=== PATIENT | female | born 1935 | race Caucasian/White ===

== ENCOUNTER 2017-08-02 02:36 | Emergency (ER) | payer OTHER, MEDICARE ==
[2017-08-02] MEDS ORDERED: SOLU-Medrol 125 MG VIAL IVP ONE (02:53)
[2017-08-02] MEDS ORDERED: SOLU-Medrol 125 MG VIAL ONE (02:54)
[2017-08-02 02:55] VITALS: BMI 23.4
[2017-08-02 03:22] LABS: BASOPHILS # (AUTO) 0.1 X10^3/uL (0.0-0.1); BASOPHILS % (AUTO) 0.6 % (0.2-1.0); EOSINOPHILS % (AUTO) 0.1 % (0.9-2.9); HEMATOCRIT 29.8 % (36.0-47.0); HEMOGLOBIN 9.8 g/dL (12.0-16.0); LYMPHOCYTES # (AUTO) 0.8 X10^3/uL (1.3-2.9); LYMPHOCYTES % (AUTO) 6.5 % (21.0-51.0); MEAN CORPUSCULAR HEMOGLOBIN 26.5 pg (27.0-34.0); MEAN CORPUSCULAR HGB CONC 32.8 g/dL (33.0-35.0); MEAN CORPUSCULAR VOLUME 80.9 fL (80.0-100.0); MEAN PLATELET VOLUME 8.8 fL (7.4-11.0); MONOCYTES # (AUTO) 0.9 x10^3/uL (0.3-0.8); MONOCYTES % (AUTO) 7.4 % (0.0-13.0); NEUTROPHILS # (AUTO) 9.9 x10^3/uL (2.2-4.8); NEUTROPHILS % (AUTO) 85.4 % (42.0-75.0); PLATELET COUNT 297 X10^3/uL (150.0-450.0); RED BLOOD COUNT 3.69 X10^6/uL (3.5-5.4); RED CELL DISTRIBUTION WIDTH 15.2 % (11.6-16.5); WHITE BLOOD COUNT 11.6 X10^3/uL (3.6-10.0)
[2017-08-02] MEDS ORDERED: ATIVAN INJ 2 MG VIAL IVP ONE (03:23)
--- NOTE | 2017-08-02 03:26 | DR.SOBA ---
HPI - Primary Care Physician Primary Care Physician: JEANINE - HPI Comment HPI Comment: PATIENT LOT HER TONIGHT AND IS NOW HAVING RESPIRATORY DISTRESS AND SOB. CAROLYNE SAID PATIENT IS BEING COUGHING MAINLY NON PRODUCTIVE COUGH. TONIGHT SHE IS WHEEZING AND HAVING TIGHTNESS OF HER CHEST. HAVE HISTORY OF COPD. SHE SAID SHE MAY BE RUNNING FEVER AT HOME. - Complaints Chief Complaint Doctors Comments: INCREASING SOB, COUGH AND CHEST PAIN. Chief Complaint:: SHORT OF BREATH O/S 2-3 HRS AGO, JUST GOT WORSE. HX OF COPD, SMOKER. PATIENT DENIES ANY PAIN. - Reviewed Nurses Notes Reviewed: Yes - Source History Provided: Patient, EMS - Mode of Arrival Mode of Arrival: EMS - Timing Onset of Chief Complaint: 08/02/17 - Duration Duration: Hours, Days - Context Onset:: At Rest PE Risk Factors:: None History of:: COPD, Anxiety Currently on:: Neither Prehospital Care:: None - Modifying Factors Worsens:: Anxiety Improves:: Nothing - Associated Signs and Symptoms Associated Signs and Symptoms: Fever, Wheeze, Cough, Chest Pain, Leg Swelling, Anxiety - If Chest Pain Quality: Pleuritic, Other (TIGHTNESS, ) Location: Left Upper Chest, Left Lower Chest, Chest Wall - If Cough Cough: Nonproductive PMH - PMH Past Medical History: Yes Past Medical History: Asthma, COPD, Dyslipidemia, Hypertension Past Medical History Comment: BREAST CANCER Past Surgical History: Yes Surgical History: Cholecystectomy, Hysterectomy, Mastectomy Past Surgical History Comment: LEFT MASTECTOMY (50 YRS AGO) - Family History History of Family Medical Conditions: No - Social History Type of Tobacco Use: Cigarettes Alcohol Use: None Do you use any recreational Drugs:: No Lives With: Family Lives Where: Home - infectious screening Have you traveled outside the country in the last 6 months?: No Isolation: Standard ROS - Review of Systems Constitutional: Fever, Weakness, Fatigue. negative: Chills Eyes: negative: Eye Pain, Photophobia ENTM: Nose Congestion. negative: Ear Pain, Nose Discharge, Throat Pain Respiratoy: Non-Productive Cough, Short of Breath, Wheezing. negative: Hemoptysis Cardiovascular: Chest Pain, Edema, Palpitations Gastrointestinal/Abdominal: Diarrhea. negative: Nausea, Vomiting Genitourinary: negative: Dysuria, Frequency, Hematuria Neurological: Headache, Weakness, Dizziness Musculoskeletal: Back Pain, Muscle Pain Integumentary: Change in Color, Rash. negative: Juandice Hematologic/Lymphatic: Easy Bleeding, Easy Bruising Endocrine: No Symptoms Reported. negative: Flushing All Other Systems: Reviewed and Negative PE - Vital Signs Vitals: Temperature 99.0 F Pulse Rate [Apical] 121 Pulse Rate 123 Respiratory Rate 38 Blood Pressure [Right Arm] 91/57 Blood Pressure 111/95 O2 Sat by Pulse Oximetry 99 - General Limitations: No Limitations General Appearance: Alert, In Distress - Head Head Exam: Normal Inspection - Eyes Eye exam: PERRL, EOMI. negative: Scleral Icterus, Conjunctival Injection - ENT ENT Exam: Normal Oropharynx, Normal External Ear Exam, TM's Normal Bilaterally - Neck Neck Exam: Trachea Midline. negative: Tenderness, Meningismus, Lymphadenopathy - Chest Chest Inspection: Symmetric Chest Wall Rise - Respiratory Respiratory Exam: Normal Lung Sounds Bilat, Accessory Muscle Use Respiratory Exam: Bilateral Wheezing, Bilateral Rhonchi, Upper Wheezing, Upper Rhonchi, Lower Wheezing, Lower Rhonchi - Cardiovascular Cardiovascular Exam: Normal Rhythm, Tachycardia, Normal Heart Sounds - Abdominal Exam Abdominal Exam: Normal Bowel Sounds, Soft. negative: Tenderness - Extremities Extremities Exam: Normal Inspection - Back Back Exam: Normal Inspection - Neurologic Neurological Exam: Alert, Oriented X3. negative: Motor Sensory Deficit - Psychiatric Psychiatric Exam: Normal Affect, Normal Mood - Skin Skin Exam: Erythema MDM - Additional Information Obtained Additional Information Obtained From: Family - Differential Diagnosis Differential Diagnosis: Anxiety, Bronchitis, CHF, COPD, Dysrhythmia, Mycardial Infarction, Panic Attack, Pneumonia, Pneumothorax, Pulmonary embolism, Respiratory Insufficiency Course - Treatment Treatment: SEE ORDERS. - Consultation Consultation Comments: DR. SOLORZANO WANT PATIENT TRANSFER TO HIGHER LEVEL OF CARE. DR. SUMMERS, [facility] [place] ACCEPTED PATIENT FOE TRANSFER. - Education/Counseling Education/Counseling: Patient, Family, Education Educated On: Diagnosis, Needs for Follow Up ROR - Labs Reviewed Laboratory Results Reviewed?: Yes Result Diagrams: 08/02/17 03:06 08/02/17 03:06 Laboratory: WBC 11.6 X10^3/uL (3.6-10.0) H 08/02/17 03:06 RBC 3.69 X10^6/uL (3.5-5.4) 08/02/17 03:06 Hgb 9.8 g/dL (12.0-16.0) L 08/02/17 03:06 Hct 29.8 % (36.0-47.0) L 08/02/17 03:06 MCV 80.9 fL (80.0-100.0) 08/02/17 03:06 MCH 26.5 pg (27.0-34.0) L 08/02/17 03:06 MCHC 32.8 g/dL (33.0-35.0) L 08/02/17 03:06 RDW 15.2 % (11.6-16.5) 08/02/17 03:06 Plt Count 297 X10^3/uL (150.0-450.0) 08/02/17 03:06 MPV 8.8 fL (7.4-11.0) 08/02/17 03:06 Neut % 85.4 % (42.0-75.0) H 08/02/17 03:06 Lymph % 6.5 % (21.0-51.0) L 08/02/17 03:06 [place] % 7.4 % (0.0-13.0) 08/02/17 03:06 Eos % 0.1 % (0.9-2.9) L 08/02/17 03:06 Baso % 0.6 % (0.2-1.0) 08/02/17 03:06 Neut # 9.9 x10^3/uL (2.2-4.8) H 08/02/17 03:06 Lymph # 0.8 X10^3/uL (1.3-2.9) L 08/02/17 03:06 [place] # 0.9 x10^3/uL (0.3-0.8) H 08/02/17 03:06 Eos # 0.0 x10^3/uL (0.0-0.2) 08/02/17 03:06 Baso # 0.1 X10^3/uL (0.0-0.1) 08/02/17 03:06 Absolute Nucleated RBC 0.0 /100WBC 08/02/17 03:06 Sample Site Left radial 08/02/17 07:10 ABG pH 7.280 (7.35-7.45) L 08/02/17 07:10 ABG pCO2 52.0 mmHg (35.0-45.0) H* 08/02/17 07:10 ABG pO2 72.0 mmHg (80.0-100.0) L 08/02/17 07:10 ABG HCO3 24.4 mmol/L (22-26) 08/02/17 07:10 ABG O2 Saturation 92.0 % (90-100) 08/02/17 07:10 ABG Base Excess -2.9 mmol/L (-2.0-2.0) L 08/02/17 07:10 Jeff Test Pos 08/02/17 07:10 A-a Gradient 63.0 mmHg 08/02/17 07:10 FiO2 28.000 08/02/17 07:10 Blood Gas Comments Shanna well aw 08/02/17 07:10 Sodium 138 mmol/L (136-145) 08/02/17 03:06 Corrected Sodium 140 mmol/L (136-145) 08/02/17 03:06 Potassium 3.6 mmol/L (3.5-5.1) 08/02/17 03:06 Chloride 103 mmol/L (98-107) 08/02/17 03:06 Carbon Dioxide 25.5 mmol/L (21-32) 08/02/17 03:06 BUN 14 mg/dL (7-18) 08/02/17 03:06 Creatinine 0.90 mg/dL (0.55-1.02) 08/02/17 03:06 Est GFR (MDRD) Af Amer > 60 (>60) 08/02/17 03:06 Est GFR (MDRD) Non-Af > 60 (>60) 08/02/17 03:06 Glucose 175 mg/dL (65-99) H 08/02/17 03:06 Lactic Acid 0.8 mmol/L (0.4-2.0) 08/02/17 04:30 Calcium 8.3 mg/dL (8.5-10.1) L 08/02/17 03:06 Corrected Calcium TNP 08/02/17 03:06 Total Bilirubin 0.20 mg/dL (0.2-1.0) 08/02/17 03:06 AST 23 Units/L (15-37) 08/02/17 03:06 ALT 26 Units/L (12-78) 08/02/17 03:06 Alkaline Phosphatase 69 Units/L (46-116) 08/02/17 03:06 Creatine Kinase 224 Units/L (26-192) H 08/02/17 03:06 CK-MB (CK-2) 3.4 ng/mL (0-4.0) 08/02/17 03:06 CK/CKMB % Calc 1.5 % (<4) 08/02/17 03:06 Troponin I 0.57 ng/mL (0-1.5) 08/02/17 03:06 Total Protein 7.5 g/dL (6.4-8.2) 08/02/17 03:06 Albumin 3.6 g/dL (3.4-5.0) 08/02/17 03:06 Globulin 3.9 g/dL (2.5-4.5) 08/02/17 03:06 Albumin/Globulin Ratio 0.9 Ratio (1.1-2.1) L 08/02/17 03:06 - XRAY XRAY Interpreted by: Radiologist XRAY Findings: REPORT DISCUSS WITH PATIENT ANDHER FAMILY. - EKG Rhythm: NSR (EKG NOTED) - Diagnosis Discharge Problem: Respiratory distress, Atypical pneumonia, COPD exacerbation, Cardiac ischemia Hypotension Qualifiers: Hypotension type: other hypotension type Qualified Code(s): I95.89 - Other hypotension Chest pain Qualifiers: Chest pain type: precordial pain Qualified Code(s): R07.2 - Precordial pain Dyspnea Qualifiers: Dyspnea type: shortness of breath Qualified Code(s): R06.02 - Shortness of breath; R06.00 - Dyspnea, unspecified; R06.01 - Orthopnea - Discharge Plan Condition: Stable - Follow ups/Referrals - Instructions
[2017-08-02] MEDS ORDERED: ATIVAN INJ 2 MG VIAL ONE (03:31)
--- NOTE | 2017-08-02 03:33 | RAD ---
Chest, one-view Indication: Shortness of breath Comparison: 06/22/2015 Findings: Heart size is normal. There is mild peribronchial thickening and diffuse bilateral intersti tial prominence. No focal consolidation, significant effusion or pneumothorax is identified. Surgical clips projecting over the left axilla are noted. No acute osseous abnormality is identified. Impression: Mild peribronchial thickening and diffuse bilateral interstitial prominence, either reflecting edema or atypical/viral pneumonia. Correlation recommended. Reported By:
[2017-08-02 03:35] LABS: BLOOD UREA NITROGEN 14 mg/dL (7-18); CALCIUM 8.3 mg/dL (8.5-10.1); CARBON DIOXIDE 25.5 mmol/L (21-32); CHLORIDE 103 mmol/L (98-107); COR NA(FOR HYPERGLY) 140 mmol/L (136-145); SODIUM 138 mmol/L (136-145); TROPONIN I 0.57 ng/mL (0-1.5); eGFR BLACK RACES > 60 (>60); eGFR NON BLACK RACES > 60 (>60)
[2017-08-02 03:52] LABS: ALANINE AMINOTRANSFERASE 26 Units/L (12-78); ALBUMIN 3.6 g/dL (3.4-5.0); ALKALINE PHOSPHATASE 69 Units/L (46-116); ASPARTATE AMINO TRANSFERASE 23 Units/L (15-37); CKMB % 1.5 % (<4); CREATINE KINASE 224 Units/L (26-192); CREATINE KINASE MB 3.4 ng/mL (0-4.0); TOTAL PROTEIN 7.5 g/dL (6.4-8.2)
[2017-08-02] MEDS ORDERED: NS 500 ML IV 500 ML IV ONE ×2 (04:05→04:16)
[2017-08-02] MEDS ORDERED: ROCEPHIN VIAL 1 GM 1 GM in NS 100 ML IV + SPIKE MINIBAG* 100 ML IV ONE ×2 (04:09→08:09)
[2017-08-02] MEDS ORDERED: ROCEPHIN VIAL 1 GM ONE (04:10)
[2017-08-02] MEDS ORDERED: NS 1000 ML 1,000 ML ONE ×2 (05:04→06:10)
[2017-08-02] MEDS ORDERED: LASIX IVP ONE (06:58)
[2017-08-02] MEDS ORDERED: DUONEB 0.5 MG/3 MG ONE (06:59)
[2017-08-02] MEDS ORDERED: DUONEB 0.5 MG/3 MG NEB ONE (06:59)
[2017-08-02] MEDS ORDERED: LASIX ONE (06:59)
[2017-08-02] MEDS ORDERED: NS 1000 ML 1,000 ML IV SCH (07:00)
[2017-08-02 07:31] LABS: ABG BASE EXCESS -2.9 mmol/L (-2.0-2.0); ABG HCO3 24.4 mmol/L (22-26)
[2017-08-02 07:32] LABS: ABG ALLEN TEST POS
[2017-08-02 07:59] LABS: BILIRUBIN,URINE NEGATIVE (NEGATIVE); BLOOD/HEMOGLOBIN,URINE 1+ (NEGATIVE); GLUCOSE, URINE NEGATIVE (NEGATIVE); KETONES,URINE NEGATIVE (NEGATIVE); LEUKOCYTE ESTERASE ,URINE NEGATIVE (NEGATIVE); NITRITES,URINE NEGATIVE (NEGATIVE); PROTEIN,URINE 1+ (NEGATIVE); UROBILINOGEN,URINE NORMAL (NORMAL)
[2017-08-02 08:03] LABS: APPEARANCE,URINE CLEAR (CLEAR); COLOR,URINE YELLOW (YELLOW)
[2017-08-02 08:05] LABS: BACTERIA,URINE NEGATIVE /HPF (NEGATIVE); RBC,URINE 0-3 /HPF (NEGATIVE); SQUAMOUS EPITHELIAL CELL,UR RARE /HPF (NEGATIVE)
[2017-08-02] MEDS ORDERED: SALINE 3% 15 ML NEB TX ONE (08:26)
[2017-08-02] MEDS: DUONEB 0.5 MG/3 MG NEB SCH ×2 (08:30→10:25)
[2017-08-02] MEDS ORDERED: MICRO K EXTEN CAP 10 MEQ PO SCH (09:00)
[2017-08-02] MEDS ORDERED: LASIX IVP SCH (09:00)
[2017-08-02] MEDS ORDERED: VIBRAMYCIN 100 MG in D5W 250 ML IV 250 ML IV SCH (09:00)
[2017-08-02 10:10] LABS: ABG BASE EXCESS -0.5 mmol/L (-2.0-2.0); ABG HCO3 24.2 mmol/L (22-26)
[2017-08-02 10:11] LABS: ABG ALLEN TEST POS
[2017-08-02] MEDS ORDERED: ASPIRIN 81 MG CHEWTAB ONE (10:16)
[2017-08-02] MEDS ORDERED: ZOFRAN INJ 4 MG VIAL ONE (10:16)
[2017-08-02] MEDS ORDERED: MORPHINE SULFATE INJ 2 MG INJ ONE (10:16)
[2017-08-02] MEDS ORDERED: ZOFRAN INJ 4 MG VIAL IVP ONE (10:24)
[2017-08-02] MEDS ORDERED: MORPHINE SULFATE INJ 2 MG INJ IVP ONE (10:24)
[2017-08-02 10:37] LABS: CKMB % 4.2 % (<4)
[2017-08-02 10:41] LABS: CREATINE KINASE MB 13.2 ng/mL (0-4.0)
[2017-08-02 10:42] LABS: TROPONIN I 2.09 ng/mL (0-1.5)
[2017-08-02] MEDS ORDERED: HEPARIN SODIUM IN D5W 25,000 UNITS/500 ML BAG IV PRN (10:43)
[2017-08-02] MEDS ORDERED: NITROGLYCERIN IV PREMIX 50 MG 50 MG/250 ML BAG IV PRN (10:43)
[2017-08-02] MEDS ORDERED: PLAVIX PO SCH (11:00)
[2017-08-02] MEDS ORDERED: ASPIRIN 81 MG CHEWTAB PO SCH (11:00)
[2017-08-02] MEDS ORDERED: HEPARIN SODIUM INJ 5000 UNITS IVP ONE (11:00)
[2017-08-02 11:33] VITALS: BP 112/53
[2017-08-02] MEDS ORDERED: SOLU-Medrol 40 MG VIAL IVP SCH (14:00)
== END 2017-08-02 11:16 | disposition short-term general hospital (02) ==
LOC: ER 02:36 → UNDOADMIN 08:10 → ICU 08:10 → ER 11:16
DX: J18.8 Other pneumonia, unspecified organism (principal); J44.9 Chronic obstructive pulmonary disease, unspecified; I95.89 Other hypotension; R07.2 Precordial pain; R06.02 Shortness of breath; R06.01 Orthopnea; R06.00 Dyspnea, unspecified; I25.9 Chronic ischemic heart disease, unspecified; R50.9 Fever, unspecified
CPT/HCPCS: 36415; 36600; 51702; 71045; 80053; 81001; 82550; 82553; 82803; 83605; 84484; 85025; 85610; 85730; 87040; 93005; 93010; 93041; 94640; 96365; 96367; 96374; 96375; 99283; 99285; A4222; J0696; J1940; J2060; J2270; J2405; J2930; J3490; J7620

== ENCOUNTER → 2017-09-02 | Outpatient (CLI) | payer OTHER, MEDICARE ==
[2017-09-02 19:19] LABS: CRYPTOSPORIDIUM PARVUM ANTIGEN NEGATIVE (NEGATIVE); GIARDIA LAMBLIA ANTIGEN NEGATIVE (NEGATIVE)
== END ==
LOC: LAB 18:09
PROVIDERS: ATTEND Internal Medicine
DX: I21.4 Non-ST elevation (NSTEMI) myocardial infarction (principal); I10 Essential (primary) hypertension; B96.89 Other specified bacterial agents as the cause of diseases classified elsewhere
CPT/HCPCS: 82270; 87045; 87328; 87329; 87336; 87493; 87899

== ENCOUNTER 2017-09-04 16:57 | Inpatient (IN) | payer OTHER, MEDICARE ==
--- NOTE | 2017-09-04 17:28 | DR.CP ---
HPI - Time Seen Time seen: 17:15 - PCP Primary Care Physician: JEANINE - HPI Comment HPI Comment: NO TRAUMA TO LEFT FOOT. HAD MA AND CARDIAC STENT RECENTLY. WENT TO REHAB ABD CAME HOME LAST MONDAY. PATIENT HAVE POOR APPETITE AND IS WEAK. HISTORY ANEMIA. STOOL IS DARK BUT PATIENT IS TAKING IRON. HAD BLOOD TRASFUSION RECENTLY. - Complaint Chief Complaint Doctor Comments: CHEST PAIN ON DEEP BREATHING IN LEFT CHEST. LEFT FOOT SWOLLEN AND PAINFULL. Chief Complaint:: PT. C/O CHEST PAIN WHEN TAKING A DEEP BREATH AND LEFT FOOT PAIN X 2-3 DAYS. DENIES INJURY TO FOOT. CHEST PAIN HAS BEEN CONTINUOUS. PT. [facility] [place] [facility]. PT. STILL VERY WEAK SINCE HER CARDIAC STENT PLACEMENT AND MA. - Reviewed Nurses Notes Review: Yes - Source History Provided: Patient - Mode of Arrival Mode of Arrival: Wheelchair - Timing Onset of Chief Complaint: 09/01/17 Came on: Suddenly Pain: Present Now - Duration Duration: Constant Duration: Days - Location Location of Chest Pain: Left, Chest Chest Pain Radiation Location: None - Context Onset: At rest Cardiac Risk Factors: Smoker, Hyperlipidemia, HTN PE Risk Factors: Immobilization History of: MA, Angina Prehospital Care: None - Quality Quality: Sharp - Severity Severity: Moderate - Modifying Factors Worsens: Nothing Impoves: Nothing - Associated Signs and Symptoms Associated Signs and Symptoms: Shortness of Breath, Other (LT FOOT SWELLING AND PAIN.) PMH - PMH Past Medical History: Yes Past Medical History: Asthma, COPD, Coronary Artery Disease, Dyslipidemia, Hypertension, MA Past Surgical History: Yes Surgical History: Angioplasty/Stents, Cholecystectomy, Hysterectomy, Mastectomy Past Surgical History Comment: LEFT MASTECTOMY - Family History History of Family Medical Conditions: No - Social History Does patient currently use any type of tobacco product: Yes Have you used tobacco products in the last 12 months: Yes Type of Tobacco Use: Cigarettes Does any household member use tobacco: No Alcohol Use: None Do you use any recreational Drugs:: No Lives With: Family Lives Where: Home - infectious screening In the last 2 months have you had wt loss of >10#?: NO Have you had fever, night sweats or hemotysis?: No Have you traveled outside the country in the last 6 months?: No Isolation: Standard ROS - Review of Systems Constitutional: Weakness, Fatigue, Loss of Appetite. negative: Chills, Fever Eyes: negative: Eye Pain, Discharge ENTM: negative: Ear Pain, Nose Discharge, Nose Congestion, Throat Pain Respiratoy: Short of Breath. negative: Productive Cough, Non-Productive Cough, Wheezing, Hemoptysis Cardiovascular: Chest Pain, Edema (LT FOOT) Gastrointestinal/Abdominal: negative: Abdominal Pain, Diarrhea, Nausea, Vomiting Genitourinary: negative: Dysuria, Hematuria Neurological: Weakness. negative: Headache, Dizziness Musculoskeletal: Muscle Pain Integumentary: Change in Color (LT FOOT) Hematologic/Lymphatic: Anemia Endocrine: No Symptoms Reported All Other Systems: Reviewed and Negative PE - Vitals Vitals: Temperature 97.2 F Pulse Rate [Apical] 71 Pulse Rate 74 Respiratory Rate 17 Blood Pressure [Right Calf] 112/53 Blood Pressure [Right Arm] 146/60 Blood Pressure 161/65 O2 Sat by Pulse Oximetry 97 - General Limitations: No Limitations General Appearance: Alert - Head Head Exam: Normal Inspection - Eyes Eye exam: Normal Appearance, PERRL, EOMI. negative: Scleral Icterus, Conjunctival Injection - ENT ENT Exam: Normal Oropharynx, Normal External Ear Exam, TM's Normal Bilaterally - Chest Chest Inspection: Symmetric Chest Wall Rise - Respiratory Respiratory Exam: Respiratory Distress (MILD) Respiratory Exam: Bilateral Rhonchi, Lower Rhonchi - Cardiovascular Cardiovascular Exam: Regular Rate, Normal Rhythm, Normal Heart Sounds Pulse: Normal, Radial, Femoral Edema: Left (FOOT EDEMA) - Abdominal Exam Abdominal Exam: Normal Bowel Sounds, Soft. negative: Tenderness - Extremities Extremities Exam: Tenderness (LT FOOT SWOLLEN, RED AND TENDER.) - Back Back Exam: Normal Inspection - Neurologic Neurological Exam: Alert, Oriented X3 - Psychiatric Psychiatric Exam: Normal Affect, Normal Mood - Skin Skin Exam: Erythema MDM - Additional Information Additional Information Obtained From: Family - Differential Diagnosis Differential Diagnosis: Angina, Chest Wall Pain, CHF, Esophageal Reflux/Spasm, Gastritis, Myocardial Infarction, Pericarditis, Pleuritis, Pancreatitis, Pneumonia, Pneumothorax, Pulmonary Embolus Course - Treatment Treatment: SEE ORDERS. - Consultation Consultation Comments: DISCUSS PATIENT WITH DR. HIGH. HE WILL ADMIT PATIENT. - Education/Counseling Education/Counseling: Patient, Family, Education Educated On: Diagnosis ROR - Labs Reviewed Laboratory Results Reviewed?: Yes Result Diagrams: 09/04/17 17:17 09/04/17 17:17 Laboratory: WBC 7.8 X10^3/uL (3.6-10.0) 09/04/17 17:17 RBC 2.52 X10^6/uL (3.5-5.4) L 09/04/17 17:17 Hgb 7.2 g/dL (12.0-16.0) L 09/04/17 17:17 Hct 21.0 % (36.0-47.0) L 09/04/17 17:17 MCV 83.2 fL (80.0-100.0) 09/04/17 17:17 MCH 28.5 pg (27.0-34.0) 09/04/17 17:17 MCHC 34.3 g/dL (33.0-35.0) 09/04/17 17:17 RDW 16.9 % (11.6-16.5) H 09/04/17 17:17 Plt Count 305 X10^3/uL (150.0-450.0) 09/04/17 17:17 Plt Count Comment Adequate (ADEQUATE) 09/04/17 17:17 MPV 8.6 fL (7.4-11.0) 09/04/17 17:17 Neut % 66.0 % (42.0-75.0) 09/04/17 17:17 Lymph % 20.1 % (21.0-51.0) L 09/04/17 17:17 [place] % 11.9 % (0.0-13.0) 09/04/17 17:17 Eos % 0.9 % (0.9-2.9) 09/04/17 17:17 Baso % 1.1 % (0.2-1.0) H 09/04/17 17:17 Neut # 5.2 x10^3/uL (2.2-4.8) H 09/04/17 17:17 Lymph # 1.6 X10^3/uL (1.3-2.9) 09/04/17 17:17 [place] # 0.9 x10^3/uL (0.3-0.8) H 09/04/17 17:17 Eos # 0.1 x10^3/uL (0.0-0.2) 09/04/17 17:17 Baso # 0.1 X10^3/uL (0.0-0.1) 09/04/17 17:17 Absolute Nucleated RBC 0.0 /100WBC 09/04/17 17:17 Plt Morphology Comment Normal (NORMAL) 09/04/17 17:17 RBC Morphology Abnormal (NORMAL) A 09/04/17 17:17 Hypochromasia Slight A 09/04/17 17:17 Anisocytosis Slight A 09/04/17 17:17 INR Target Range - 09/04/17 17:17 INR 1.21 (0.8-1.3) 09/04/17 17:17 PTT 37.2 SECONDS (22.9-36.5) H 09/04/17 17:17 PTT Comment - 09/04/17 17:17 D-Dimer 2060 ng/mL (0-400) H* 09/04/17 17:17 Sodium 137 mmol/L (136-145) 09/04/17 17:17 Corrected Sodium 138 mmol/L (136-145) 09/04/17 17:17 Potassium 4.0 mmol/L (3.5-5.1) 09/04/17 17:17 Chloride 103 mmol/L (98-107) 09/04/17 17:17 Carbon Dioxide 25.4 mmol/L (21-32) 09/04/17 17:17 BUN 13 mg/dL (7-18) 09/04/17 17:17 Creatinine 0.99 mg/dL (0.55-1.02) 09/04/17 17:17 Est GFR (MDRD) Af Amer > 60 (>60) 09/04/17 17:17 Est GFR (MDRD) Non-Af 57 (>60) L 09/04/17 17:17 Glucose 124 mg/dL (65-99) H 09/04/17 17:17 Calcium 8.1 mg/dL (8.5-10.1) L 09/04/17 17:17 Corrected Calcium 9.4 mg/dL (8.5-10.1) 09/04/17 17:17 Magnesium 2.1 mg/dL (1.7-2.9) 09/04/17 17:17 Total Bilirubin 0.10 mg/dL (0.2-1.0) L 09/04/17 17:17 AST 20 Units/L (15-37) 09/04/17 17:17 ALT 19 Units/L (12-78) 09/04/17 17:17 Alkaline Phosphatase 52 Units/L (46-116) 09/04/17 17:17 Creatine Kinase 56 Units/L (26-192) 09/04/17 17:17 CK-MB (CK-2) < 1.0 ng/mL (0-4.0) 09/04/17 17:17 CK/CKMB % Calc 1.8 % (<4) 09/04/17 17:17 Troponin I < 0.02 ng/mL (0-1.5) 09/04/17 17:17 Total Protein 6.5 g/dL (6.4-8.2) 09/04/17 17:17 Albumin 2.4 g/dL (3.4-5.0) L 09/04/17 17:17 Globulin 4.1 g/dL (2.5-4.5) 09/04/17 17:17 Albumin/Globulin Ratio 0.6 Ratio (1.1-2.1) L 09/04/17 17:17 Blood Type A POSITIVE 09/04/17 18:15 Antibody Screen Negative 09/04/17 18:15 Crossmatch See Detail 09/04/17 18:15 - XRAY XRAY Interpreted by: Radiologist XRAY Findings: REPORT DISCUSS WITH PATIENT AND HER FAMILY. - EKG Rhythm: NSR (EKG NOTED.) - Diagnosis Discharge Problem: Swelling of toe of left foot Chest pain Qualifiers: Chest pain type: chest pain on breathing Qualified Code(s): R07.1 - Chest pain on breathing; R07.81 - Pleurodynia Anemia Qualifiers: Iron deficiency anemia type: chronic blood loss - Discharge Plan Disposition: ADMITTED INPATIENT Condition: Stable - Follow ups/Referrals - Instructions
[2017-09-04 17:43] LABS: BASOPHILS # (AUTO) 0.1 X10^3/uL (0.0-0.1); BASOPHILS % (AUTO) 1.1 % (0.2-1.0); EOSINOPHILS # (AUTO) 0.1 x10^3/uL (0.0-0.2); EOSINOPHILS % (AUTO) 0.9 % (0.9-2.9); HEMOGLOBIN 7.2 g/dL (12.0-16.0); LYMPHOCYTES # (AUTO) 1.6 X10^3/uL (1.3-2.9); LYMPHOCYTES % (AUTO) 20.1 % (21.0-51.0); MEAN CORPUSCULAR HEMOGLOBIN 28.5 pg (27.0-34.0); MEAN CORPUSCULAR HGB CONC 34.3 g/dL (33.0-35.0); MEAN CORPUSCULAR VOLUME 83.2 fL (80.0-100.0); MEAN PLATELET VOLUME 8.6 fL (7.4-11.0); MONOCYTES # (AUTO) 0.9 x10^3/uL (0.3-0.8); MONOCYTES % (AUTO) 11.9 % (0.0-13.0); NEUTROPHILS # (AUTO) 5.2 x10^3/uL (2.2-4.8); PLATELET COUNT 305 X10^3/uL (150.0-450.0); RED BLOOD COUNT 2.52 X10^6/uL (3.5-5.4); RED CELL DISTRIBUTION WIDTH 16.9 % (11.6-16.5); WHITE BLOOD COUNT 7.8 X10^3/uL (3.6-10.0)
[2017-09-04 17:46] LABS: PLATELET MORPHOLOGY COMMENT NORMAL (NORMAL)
[2017-09-04 17:52] LABS: BLOOD UREA NITROGEN 13 mg/dL (7-18); CALCIUM 8.1 mg/dL (8.5-10.1); CARBON DIOXIDE 25.4 mmol/L (21-32); CHLORIDE 103 mmol/L (98-107); COR NA(FOR HYPERGLY) 138 mmol/L (136-145); CREATININE 0.99 mg/dL (0.55-1.02); SODIUM 137 mmol/L (136-145); TROPONIN I < 0.02 ng/mL (0-1.5); eGFR BLACK RACES > 60 (>60); eGFR NON BLACK RACES 57 (>60)
[2017-09-04 17:56] LABS: ANISOCYTOSIS SLIGHT; HYPOCHROMASIA SLIGHT
[2017-09-04 17:57] LABS: ALANINE AMINOTRANSFERASE 19 Units/L (12-78); ALBUMIN 2.4 g/dL (3.4-5.0); ALKALINE PHOSPHATASE 52 Units/L (46-116); ASPARTATE AMINO TRANSFERASE 20 Units/L (15-37); CKMB % 1.8 % (<4); COR CA(FOR HYPOALB) 9.4 mg/dL (8.5-10.1); CREATINE KINASE 56 Units/L (26-192); CREATINE KINASE MB < 1.0 ng/mL (0-4.0); TOTAL PROTEIN 6.5 g/dL (6.4-8.2)
--- NOTE | 2017-09-04 18:36 | RAD ---
HISTORY: Chest pain Study: Single view of the chest. Comparison: 08/02/2017 Findings: The cardiomediastinal silhouette is normal. No focal consolidations, pleural effusions or pneumothora x. Osseous structures demonstrate no acute abnormality. Status post left mastectomy and axillary diss ection IMPRESSION: 1. No acute cardiopulmonary process. Reported By:
--- NOTE | 2017-09-04 18:53 | RAD ---
HISTORY: Pain and swelling Study: 3 views of the left foot. Comparison: None Findings: No acute fracture or dislocation. Joint spaces are well aligned. Dorsal soft tissue swelling. IMPRESSION: 1. Dorsal swelling without definite underlying bony abnormality. Reported By:
--- NOTE | 2017-09-04 19:05 | CT ---
HISTORY: Chest pain, elevated D-dimer of 20 60. Pain when taking a deep breath. Prior history of hype rtension, COPD, SD, breast cancer an uterine cancer. Study: CTA chest Comparison: 06/22/2015 Technique: Multiple axial images of the chest were obtained from the thoracic inlet to the upper abdo men during the administration of IV contrast. In addition to standard multi planar reconstructions, M IP reconstructions were performed and reviewed in axial, coronal and sagittal planes. Dose reduction techniques utilized automatic exposure control. Findings: The mediastinum does not demonstrate significant pathological lymphadenopathy. There is no pericardi al effusion observed. The thoracic aorta is normal in its contour without evidence for aneurysmal di latation. There are right and left coronary artery calcifications. The central pulmonary arterial sys tem does not demonstrate central filling defects to suggest pulmonary emboli. Evaluation of the lung parenchyma reveals bilateral cylindrical bronchiectasis. No evidence of consol idation or pleural fluid is seen.. No pulmonary nodule or mass can be identified. The bony thorax i s unremarkable in its appearance. There is a left breast implant with some peripheral calcification. The liver and adrenal glands are normal. Gallbladder surgically absent. There is a 3 cm simple cyst i nvolving the posterior aspect of the left upper renal pole.. IMPRESSION: No evidence of pulmonary embolus or thoracic aortic aneurysm. Right and left coronary artery calcifications. Mild cylindrical bronchiectasis bilaterally without infiltrate or pleural fluid. Reported By:
--- NOTE | 2017-09-04 19:14 | VAS ---
VENOUS ULTRASOUND DOPPLER EXAMINATION OF THE LEFT LOWER EXTREMITY HISTORY: Foot swelling and pain Comparison: None TECHNIQUE: Multiple feliz scale and color flow Doppler images of the deep venous system were obtained of the left lower extremity. FINDINGS: The deep venous system of the left lower extremity was evaluated from the level of the common femoral vein through the popliteal vein. Normal color flow and augmentation can be observed. In addition, normal compression is seen throughout the deep venous system. IMPRESSION: 1. Negative for DVT. Reported By:
[2017-09-04] MEDS ORDERED: NEURONTIN CAP 100 MG PO PRN (21:04)
[2017-09-04] MEDS ORDERED: NS 250 ML IV 250 ML IV ONE (21:12)
[2017-09-04 21:44] VITALS: BMI 3388.5
[2017-09-04] MEDS: NS 1000 ML 1,000 ML IV SCH (22:35)
[2017-09-04] MEDS: REQUIP PO SCH (22:51)
[2017-09-05] MEDS ORDERED: NS 250 ML IV 250 ML IV ONE
[2017-09-05] MEDS: REQUIP PO SCH ×3 (05:16→21:18)
[2017-09-05 06:21] LABS: BASOPHILS # (AUTO) 0.1 X10^3/uL (0.0-0.1); EOSINOPHILS # (AUTO) 0.2 x10^3/uL (0.0-0.2); EOSINOPHILS % (AUTO) 2.3 % (0.9-2.9); HEMATOCRIT 29.9 % (36.0-47.0); HEMOGLOBIN 10.3 g/dL (12.0-16.0); LYMPHOCYTES # (AUTO) 1.5 X10^3/uL (1.3-2.9); LYMPHOCYTES % (AUTO) 20.5 % (21.0-51.0); MEAN CORPUSCULAR HEMOGLOBIN 27.6 pg (27.0-34.0); MEAN CORPUSCULAR HGB CONC 34.3 g/dL (33.0-35.0); MEAN CORPUSCULAR VOLUME 80.4 fL (80.0-100.0); MEAN PLATELET VOLUME 8.8 fL (7.4-11.0); MONOCYTES % (AUTO) 13.4 % (0.0-13.0); NEUTROPHILS # (AUTO) 4.7 x10^3/uL (2.2-4.8); NEUTROPHILS % (AUTO) 62.8 % (42.0-75.0); PLATELET COUNT 315 X10^3/uL (150.0-450.0); RED BLOOD COUNT 3.71 X10^6/uL (3.5-5.4); RED CELL DISTRIBUTION WIDTH 16.4 % (11.6-16.5); WHITE BLOOD COUNT 7.5 X10^3/uL (3.6-10.0)
[2017-09-05 06:50] LABS: ALANINE AMINOTRANSFERASE 21 Units/L (12-78); ALBUMIN 2.3 g/dL (3.4-5.0); ALKALINE PHOSPHATASE 51 Units/L (46-116); ASPARTATE AMINO TRANSFERASE 15 Units/L (15-37); BLOOD UREA NITROGEN 12 mg/dL (7-18); CALCIUM 8.4 mg/dL (8.5-10.1); CARBON DIOXIDE 26.3 mmol/L (21-32); CHLORIDE 103 mmol/L (98-107); COR CA(FOR HYPOALB) 9.8 mg/dL (8.5-10.1); COR NA(FOR HYPERGLY) 138 mmol/L (136-145); CREATININE 0.88 mg/dL (0.55-1.02); SODIUM 138 mmol/L (136-145); TOTAL PROTEIN 6.5 g/dL (6.4-8.2); eGFR BLACK RACES > 60 (>60); eGFR NON BLACK RACES > 60 (>60)
[2017-09-05 07:25] LABS: CKMB % 2.4 % (<4); CREATINE KINASE 41 Units/L (26-192); CREATINE KINASE MB < 1.0 ng/mL (0-4.0); TROPONIN I < 0.02 ng/mL (0-1.5)
[2017-09-05] MEDS: ULTRAM PO SCH ×4 (08:25→21:13)
[2017-09-05] MEDS: PLAVIX PO SCH (08:25)
[2017-09-05] MEDS: NAMENDA TAB 10 MG PO SCH ×2 (08:25→21:14)
[2017-09-05] MEDS: PRAVACHOL PO SCH (08:26)
[2017-09-05] MEDS: ARICEPT TAB 10 MG PO SCH (08:26)
[2017-09-05] MEDS: ELIQUIS PO SCH ×2 (08:26→21:14)
[2017-09-05] MEDS: SINGULAIR TAB 10 MG PO SCH (08:27)
[2017-09-05] MEDS: CORDARONE TAB 200 MG PO SCH (08:27)
[2017-09-05] MEDS: Atrovent NEB TX 0.02% IN SCH ×4 (08:32→20:40)
[2017-09-05] MEDS: PULMICORT NEB TX 0.5 MG NEB SCH ×2 (08:33→20:40)
[2017-09-05] MEDS ORDERED: PATIENT'S HOME MEDICATION (Apixaban [Eliquis] 2.5 MG) PO SCH (09:00)
[2017-09-05] MEDS ORDERED: BUDESONIDE 0.25 MG IH SCH (09:00)
--- NOTE | 2017-09-05 11:50 | DR.H&P ---
H&P - History & Physical for Day of: H&P Date: 09/04/17 - Chief Complaint Chief Complaint: CHEST PAIN, WEAKNESS, LEFT FOOT PAIN AND SWELLING - Allergies Allergies/Adverse Reactions: Allergies Allergy/AdvReac Type Severity Reaction Status Date / Time No Known Drug Allergies Allergy Verified 09/04/17 17:08 - History of Present Illness History of Present Illness: IS A 82 YEAR OLD PATIENT OF OURS WHO PRESENTED TO THE EMERGENCY ROOM WITH COMPLAINTS OF LEFT SIDED CHEST PAIN THAT IS WORSE UPON TAKING A DEEP BREATH AND LEFT FOOT PAIN AND SWELLING. PATIENT REPORTS THAT SYMPTOMS HAVE BEEN PRESENT FOR THE PAST 2-3 DAYS. PATIENT REPORTS THAT SHE WAS [facility]ENT[facility] FOLLOWING PLACEMENT OF CARDIAC STENTS DUE TO AN [place]. ASSOCIATED SYMPTOMS INCLUDE FATIGUE, DECREASED APPETITE, WEAKNESS, DARK STOOLS, SHORTNESS OF BREATH, AND LEFT FOOT EDEMA. MEDICAL HISTORY INCLUDES [place], ANGINA, COPD, ARTHRITIS, OSTEOPOROSIS, ANEMIA, BREAST CANCER, ANXIETY, DEPRESSION, CHOLECYSTECTOMY, HYSTERECTOMY, AND A MASTECTOMY. ON ARRIVAL, VITALS WERE 97.2-74-17-97%-161/65. LABS WERE OBTAINED. ABNORMAL LAB VALUES INCLUDE THE FOLLOWING: RBC 2.52, HGB 7.2, HCT 21.0, D-DIMER 2060, PTT 37.2, GFR 57, GLUCOSE 124, CALCIUM 8.1, TOTAL BILI 0.10, ALBUMIN 2.4, IRON 28. A CHEST XRAY WAS OBTAINED AND REPORTED NO ACUTE CARDIOPULMONARY PROCESS. A LEFT FOOT XRAY WAS OBTAINED AND REPORTED DORSAL SWELLING WITHOUT DEFINITE UNDERLYING BONY ABNORMALITY. VENOUS DOPPLER NEGATIVE FOR DVT. CHEST CTA WAS OBTAINED DUE TO ELEVATED D-DIMER. IT REPORTED NO EVIDENCE OF PULMONARY EMBOLUS OR THORACID AORTIC ANEURYSM. RIGHT AND LEFT CORONARY ARTERY CALCIFICATIONS. MILD CYLINDRICAL BRONCHIECTASIS BILATERALLY WITHOUT INFILTRATE OR PLEURAL FLUID. EKG REPORTED SINUS RHYTHM WITH HR 64. PATIENT WAS TYPE AND SCREENED FOR BLOOD. WE ORDERED FOR TWO UNITS OF PACKED RED BLOOD CELLS TO BE TRANSFUSED. PATIENT WAS ADMITTED FOR FURTHER TREATMENT AND EVALUATION. WE PLAN TO FOLLOW UP WITH AM LABS AND CONTINUE TO MONTIOR PATIENT. - Past Medical History Past Medical History: Asthma, COPD, Coronary Artery Disease, Dyslipidemia, Hypertension, [place] - Past Surgical History Surgical History: Cholecystectomy, Hysterectomy, Mastectomy - Family History Family Medical History: Diabetes Mellitus - Social History Does patient currently use any type of tobacco product: Yes Have you used tobacco products in the last 12 months: Yes Type of Tobacco Use: Cigarettes How many years tobacco product used: 20 Does any household member use tobacco: Yes Alcohol Use: None Drug Use: None - Medications Home Medications: Amiodarone HCl [CORDARONE tab 200 mg *] 200 mg PO DAILY 09/04/17 [History Confirmed 09/04/17] Apixaban [Eliquis] 2.5 mg PO BID 09/04/17 [History Confirmed 09/04/17] Budesonide 0.25 mg IH BID 09/04/17 [History Confirmed 09/04/17] Clopidogrel Bisulfate [PLAVIX TAB 75 MG *] 75 mg PO DAILY 09/04/17 [History Confirmed 09/04/17] Ferrous Sulfate 325 mg PO DAILY 09/04/17 [History Confirmed 09/04/17] Ipratropium [place] Neb [ATROVENT NEBULE 0.02% *] 1 inh INH QID 09/04/17 [ History Confirmed 09/04/17] Quetiapine Fumarate 25 mg PO BID 09/04/17 [History Confirmed 09/04/17] Ropinirole HCl 1 mg PO TID 09/04/17 [History Confirmed 09/04/17] Tramadol HCl [ULTRAM 50 MG *] 50 mg PO QID 09/04/17 [History Confirmed 09/04/17] - Review of Systems Constitutional: See HPI, Weakness, Malaise, Other (DECREASED APPETITE) Eyes: No Symptoms Reported. denies: See HPI, Pain, Vision Change, Conjunctivae Inflammation, Eyelid Inflammation, Redness, Other ENT: No Symptoms Reported. denies: See HPI, Ear Pain, Ear Discharge, Nose Pain , Nose Discharge, Nose Congestion, Mouth Pain, Mouth Swelling, Throat Pain, Throat Swelling, Other Respiratory: Shortness of Breath. denies: Cough, Dry, Hemoptysis, Sputum, Wheezing Cardiovascular: Chest Pain, Edema (LEFT FOOT ) Gastrointestinal: No Symptoms Reported. denies: Nausea, Vomiting, Abdominal Pain, Diarrhea, Constipation, Melena, Hematochezia, Other Genitourinary: No Symptoms Reported. denies: Dysuria, Frequency, Incontinence, Hematuria, Retention, Other Musculoskeletal: Foot Pain (LEFT FOOT PAIN AND SWELLING ) Skin: See HPI Neurological: Weakness - Physical Exam Vital Signs: Temperature 98.2 F Pulse Rate [Apical] 68 Pulse Rate 74 Respiratory Rate 20 Blood Pressure [Right Calf] 142/51 Blood Pressure [Right Arm] 168/70 Blood Pressure 161/65 O2 Sat by Pulse Oximetry 93 Oriented: Normal Eyes: Normal. negative: Blurred Vision, Diplopia, Discharge, Pain, Redness, Photophobia, Other Ear: Normal. negative: Right, Left, Swelling, Ecchymosis, Hemotypanum, Abrasion , Laceration Nose: Normal. negative: Injected, Discharge, Blood, Other Throat: Normal. negative: Tonsillar Hypertrophy, Red, Exudate, Dry, Other Respiratory: Rhonchi Throughout Cardiovascular: Normal. negative: S3, S4, Murmur : Normal. negative: Dysuria, Hematuria, Frequency, Discharge, Testicular Pain , Bleeding, , Other Auscultation: Bowel Sounds: Normal. negative: Bruit, Absent, Increased, Decreased, High Pitched, Other Palpation: Normal. negative: Spleen Enlarged, Liver Enlarged, Mass Pulsatile, Other Tenderness: Normal Skin: Red, Tender (LEFT FOOT ) Musculoskeletal: Left, Foot, Swelling, Tender Psychiatric: Normal Mood Description: Calm Affect: Normal Speech Pattern: Clear - Assessment/Plan (1) Anemia Qualifiers: Anemia type: iron deficiency Iron deficiency anemia type: chronic blood loss Qualified Code(s): D50.0 - Iron deficiency anemia secondary to blood loss (chronic) Status: Acute Plan: TRANSFUSE TWO UNITS PACKED RED BLOOD CELLS, MONITOR H&H Q12H, 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 (2) Chest pain Qualifiers: Chest pain type: chest pain on breathing Qualified Code(s): R07.1 - Chest pain on breathing; R07.81 - Pleurodynia Status: Acute Plan: TELEMETRY, SERIAL CARDIAC ENZYMES & EKG, SUPPLEMENTAL OXYGEN, 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 (3) Swelling of toe of left foot Status: Acute Plan: 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
[2017-09-05] MEDS: NS 1000 ML 1,000 ML IV SCH ×2 (15:35→23:02)
[2017-09-05 17:33] LABS: HEMATOCRIT 32.1 % (36.0-47.0)
[2017-09-05 20:16] LABS: STOOL FOR WBC NEGATIVE (NEGATIVE)
[2017-09-05 20:44] LABS: CRYPTOSPORIDIUM PARVUM ANTIGEN NEGATIVE (NEGATIVE); GIARDIA LAMBLIA ANTIGEN NEGATIVE (NEGATIVE)
[2017-09-05] MEDS: NEURONTIN CAP 300 MG PO SCH (21:13)
[2017-09-06] MEDS: TYLENOL 325 MG TAB PO PRN (04:51)
[2017-09-06 05:27] LABS: BASOPHILS # (AUTO) 0.1 X10^3/uL (0.0-0.1); EOSINOPHILS # (AUTO) 0.1 x10^3/uL (0.0-0.2); EOSINOPHILS % (AUTO) 0.6 % (0.9-2.9); HEMATOCRIT 30.3 % (36.0-47.0); HEMOGLOBIN 10.4 g/dL (12.0-16.0); LYMPHOCYTES # (AUTO) 1.4 X10^3/uL (1.3-2.9); MEAN CORPUSCULAR HEMOGLOBIN 27.7 pg (27.0-34.0); MEAN CORPUSCULAR HGB CONC 34.3 g/dL (33.0-35.0); MEAN CORPUSCULAR VOLUME 80.8 fL (80.0-100.0); MEAN PLATELET VOLUME 8.5 fL (7.4-11.0); MONOCYTES # (AUTO) 1.2 x10^3/uL (0.3-0.8); MONOCYTES % (AUTO) 12.2 % (0.0-13.0); NEUTROPHILS % (AUTO) 72.2 % (42.0-75.0); PLATELET COUNT 344 X10^3/uL (150.0-450.0); RED BLOOD COUNT 3.75 X10^6/uL (3.5-5.4); RED CELL DISTRIBUTION WIDTH 16.3 % (11.6-16.5); WHITE BLOOD COUNT 9.7 X10^3/uL (3.6-10.0)
[2017-09-06] MEDS: REQUIP PO SCH ×3 (05:27→21:04)
[2017-09-06 05:30] LABS: ALANINE AMINOTRANSFERASE 23 Units/L (12-78); ALBUMIN 2.3 g/dL (3.4-5.0); ALKALINE PHOSPHATASE 53 Units/L (46-116); ASPARTATE AMINO TRANSFERASE 18 Units/L (15-37); BLOOD UREA NITROGEN 10 mg/dL (7-18); CARBON DIOXIDE 28.4 mmol/L (21-32); CHLORIDE 102 mmol/L (98-107); COR CA(FOR HYPOALB) 9.4 mg/dL (8.5-10.1); CREATININE 0.93 mg/dL (0.55-1.02); SODIUM 137 mmol/L (136-145); TOTAL PROTEIN 6.6 g/dL (6.4-8.2); eGFR BLACK RACES > 60 (>60); eGFR NON BLACK RACES > 60 (>60)
[2017-09-06] MEDS: PULMICORT NEB TX 0.5 MG NEB SCH ×2 (08:59→21:03)
[2017-09-06] MEDS: Atrovent NEB TX 0.02% IN SCH ×4 (08:59→21:03)
[2017-09-06] MEDS: PLAVIX PO SCH (10:00)
[2017-09-06] MEDS: CORDARONE TAB 200 MG PO SCH (10:00)
[2017-09-06] MEDS: PEPCID 20 MG IV PREMIX* 20 MG/50 ML BAG IV SCH ×3 (10:03→21:06)
[2017-09-06] MEDS: PROTONIX INJ 40 MG VIAL IVP SCH ×2 (10:04→21:06)
[2017-09-06] MEDS: ULTRAM PO SCH ×4 (10:04→21:04)
[2017-09-06] MEDS: SINGULAIR TAB 10 MG PO SCH (10:05)
[2017-09-06] MEDS: ELIQUIS PO SCH ×2 (10:05→21:04)
[2017-09-06] MEDS: ARICEPT TAB 10 MG PO SCH (10:05)
[2017-09-06] MEDS: PRAVACHOL PO SCH (10:05)
[2017-09-06] MEDS: FERROUS GLUCONATE PO SCH (10:05)
[2017-09-06] MEDS: NAMENDA TAB 10 MG PO SCH ×2 (10:06→21:05)
[2017-09-06] MEDS ORDERED: TORADOL 15 MG VIAL IVP PRN (11:04)
[2017-09-06 11:32] LABS: C-REACTIVE PROTEIN 53.4 mg/L (0-3.0)
[2017-09-06 17:25] LABS: HEMATOCRIT 27.7 % (36.0-47.0); HEMOGLOBIN 9.4 g/dL (12.0-16.0)
[2017-09-06] MEDS: ZOFRAN TAB 4 MG SL PRN (17:49)
[2017-09-06] MEDS: NEURONTIN CAP 300 MG PO SCH (21:05)
[2017-09-07] MEDS: NS 1000 ML 1,000 ML IV SCH ×2 (03:56→05:02)
[2017-09-07] MEDS: REQUIP PO SCH ×3 (05:02→21:37)
[2017-09-07 06:09] LABS: BASOPHILS # (AUTO) 0.1 X10^3/uL (0.0-0.1); EOSINOPHILS # (AUTO) 0.1 x10^3/uL (0.0-0.2); EOSINOPHILS % (AUTO) 1.6 % (0.9-2.9); HEMATOCRIT 27.4 % (36.0-47.0); HEMOGLOBIN 9.3 g/dL (12.0-16.0); LYMPHOCYTES # (AUTO) 1.6 X10^3/uL (1.3-2.9); LYMPHOCYTES % (AUTO) 23.4 % (21.0-51.0); MEAN CORPUSCULAR HEMOGLOBIN 27.8 pg (27.0-34.0); MEAN CORPUSCULAR HGB CONC 33.8 g/dL (33.0-35.0); MEAN CORPUSCULAR VOLUME 82.1 fL (80.0-100.0); MEAN PLATELET VOLUME 8.5 fL (7.4-11.0); MONOCYTES % (AUTO) 14.4 % (0.0-13.0); NEUTROPHILS # (AUTO) 4.1 x10^3/uL (2.2-4.8); NEUTROPHILS % (AUTO) 59.6 % (42.0-75.0); PLATELET COUNT 294 X10^3/uL (150.0-450.0); RED BLOOD COUNT 3.33 X10^6/uL (3.5-5.4); RED CELL DISTRIBUTION WIDTH 16.9 % (11.6-16.5); WHITE BLOOD COUNT 6.9 X10^3/uL (3.6-10.0)
[2017-09-07 06:41] LABS: ALANINE AMINOTRANSFERASE 17 Units/L (12-78); ALBUMIN 1.9 g/dL (3.4-5.0); ALKALINE PHOSPHATASE 46 Units/L (46-116); ASPARTATE AMINO TRANSFERASE 13 Units/L (15-37); BLOOD UREA NITROGEN 13 mg/dL (7-18); CALCIUM 7.7 mg/dL (8.5-10.1); CARBON DIOXIDE 26.4 mmol/L (21-32); CHLORIDE 105 mmol/L (98-107); COR CA(FOR HYPOALB) 9.4 mg/dL (8.5-10.1); CREATININE 0.82 mg/dL (0.55-1.02); SODIUM 138 mmol/L (136-145); TOTAL PROTEIN 5.8 g/dL (6.4-8.2); eGFR BLACK RACES > 60 (>60); eGFR NON BLACK RACES > 60 (>60)
[2017-09-07] MEDS: Atrovent NEB TX 0.02% IN SCH ×4 (08:48→21:29)
[2017-09-07] MEDS: PULMICORT NEB TX 0.5 MG NEB SCH ×2 (08:48→21:29)
[2017-09-07] MEDS: PEPCID 20 MG IV PREMIX* 20 MG/50 ML BAG IV SCH ×2 (09:16→20:13)
[2017-09-07] MEDS: PROTONIX INJ 40 MG VIAL IVP SCH ×2 (09:17→20:13)
[2017-09-07] MEDS: ULTRAM PO SCH ×4 (09:18→20:13)
[2017-09-07] MEDS: ARICEPT TAB 10 MG PO SCH (09:18)
[2017-09-07] MEDS: FERROUS GLUCONATE PO SCH (09:18)
[2017-09-07] MEDS: NAMENDA TAB 10 MG PO SCH ×2 (09:18→20:14)
[2017-09-07] MEDS: PRAVACHOL PO SCH (09:20)
[2017-09-07] MEDS: ELIQUIS PO SCH ×2 (09:20→20:13)
[2017-09-07] MEDS: CORDARONE TAB 200 MG PO SCH (09:20)
[2017-09-07] MEDS: PLAVIX PO SCH (09:20)
[2017-09-07] MEDS: SINGULAIR TAB 10 MG PO SCH (09:21)
--- NOTE | 2017-09-07 13:32 | PCM.PROG ---
Progress Note - Progress Note for Day of Date: 09/05/17 - Subjective Subjective: WAS ADMITTED FOR ANEMIA AND LEFT FOOT PAIN AND SWELLING. TODAY, SHE IS ALERT AND ORIENTED, LYING IN BED ON MORNING ROUNDS. PATIENT RECEIVED TWO UNITS OF PACKED RED BLOOD CELLS YESTERDAY. SHE IS NOTED WITH COMPLAINTS OF GENERALIZED WEAKNESS AND CONTINUES WITH LEFT FOOT PAIN, REDNESS, AND SWELLING. ON EXAMINATION, HEART IS REGULAR IN RATE AND RHYTHM. BILATERAL LUNGS ARE NOTED WITH DIMINISHED BREATH SOUNDS THROUGHOUT. ABDOMEN IS ROUND, SOFT , AND NOTED WITH MILD, DIFFUSE ABDOMINAL PAIN ON PALPATION. NORMAL BOWEL SOUNDS ARE NOTED IN ALL QUADRANTS. LEFT FOOT/ANKLE IS NOTED WITH ERYTHEMA AND EDEMA. PATIENT DENIES KNOWN INJURY. THERE IS NORMAL RANGE OF MOTION NOTED TO ALL EXTREMITIES. HER VITALS THIS MORNING ARE 98.2-68-20-92%-142/51. LABS WERE OBTAINED. ABNORMAL LAB VALUES INCLUDE THE FOLLOWING: HGB 10.3, HCT 29.9, GLUCOSE 111, TOTAL BILI 0.10, ALBUMIN 2.3. TODAY, WE WILL ORDER A FECAL OCCULT BLOOD AND STOOL STUDIES. WE WILL ALSO 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 H&H AND TRANSFUSE ADDITIONAL UNITS OF PRBC IF HEMOGLOBIN FALLS BELOW 8 g/dL. OTHERWISE, WE PLAN TO FOLLOW UP WITH AM LABS AND 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 PATIENT. - Past Medical Family Social History Past Med/Fam/Surg Hx: No changes since H&P Allergies: Allergies No Known Drug Allergies Allergy (Verified 09/04/17 17:08) - Review of Systems ROS: No change since H&P - Vital Signs and I&O's Vital Signs: Temperature 98.3 F Pulse Rate [Apical] 73 Pulse Rate 70 Respiratory Rate 18 Blood Pressure [Left Arm] 153/63 Blood Pressure [Right Calf] 142/51 Blood Pressure [Right Arm] 168/70 Blood Pressure 161/65 O2 Sat by Pulse Oximetry 94 Intake and Output: Intake & Output 09/05/17 09/06/17 09/07/17 09/08/17 11:59 11:59 11:59 11:59 Intake Total 640 1840 1015 Output Total 1 Balance 639 1840 1015 - Physical Exam Oriented: Normal Eyes: Normal. negative: Blurred Vision, Diplopia, Discharge, Pain, Redness, Photophobia, Other Ear: Normal. negative: Right, Left, Swelling, Ecchymosis, Hemotypanum, Abrasion , Laceration Nose: Normal. negative: Injected, Discharge, Blood, Other Throat: Normal. negative: Tonsillar Hypertrophy, Red, Exudate, Dry, Other Respiratory: Diminished Cardiovascular: Normal. negative: S3, S4, Murmur : Normal. negative: Dysuria, Hematuria, Frequency, Discharge, Testicular Pain , Bleeding, , Other Auscultation: Bowel Sounds: Normal. negative: Bruit, Absent, Increased, Decreased, High Pitched, Other Tenderness: Diffuse, Mild. negative: Rebound, Guarding, Rigidity Skin: Red, Tender (LEFT FOOT ) Musculoskeletal: Left, Foot, Swelling, Tender Psychiatric: Normal Mood Description: Calm Affect: Normal Speech Pattern: Clear, Appropriate - Laboratory and Diagnostics Result Diagrams: 09/07/17 05:15 09/07/17 05:15 Labs: 09/05/17 17:58 Stool Stool Culture - Preliminary 09/05/17 17:58 Stool - Final Laboratory WBC 6.9 X10^3/uL (3.6-10.0) 09/07/17 05:15 RBC 3.33 X10^6/uL (3.5-5.4) L 09/07/17 05:15 Hgb 9.3 g/dL (12.0-16.0) L 09/07/17 05:15 Hct 27.4 % (36.0-47.0) L 09/07/17 05:15 MCV 82.1 fL (80.0-100.0) 09/07/17 05:15 MCH 27.8 pg (27.0-34.0) 09/07/17 05:15 MCHC 33.8 g/dL (33.0-35.0) 09/07/17 05:15 RDW 16.9 % (11.6-16.5) H 09/07/17 05:15 Plt Count 294 X10^3/uL (150.0-450.0) 09/07/17 05:15 Plt Count Comment Adequate (ADEQUATE) 09/04/17 17:17 MPV 8.5 fL (7.4-11.0) 09/07/17 05:15 Neut % 59.6 % (42.0-75.0) 09/07/17 05:15 Lymph % 23.4 % (21.0-51.0) 09/07/17 05:15 [place] % 14.4 % (0.0-13.0) H 09/07/17 05:15 Eos % 1.6 % (0.9-2.9) 09/07/17 05:15 Baso % 1.0 % (0.2-1.0) 09/07/17 05:15 Neut # 4.1 x10^3/uL (2.2-4.8) 09/07/17 05:15 Lymph # 1.6 X10^3/uL (1.3-2.9) 09/07/17 05:15 [place] # 1.0 x10^3/uL (0.3-0.8) H 09/07/17 05:15 Eos # 0.1 x10^3/uL (0.0-0.2) 09/07/17 05:15 Baso # 0.1 X10^3/uL (0.0-0.1) 09/07/17 05:15 Absolute Nucleated RBC 0.1 /100WBC 09/07/17 05:15 Plt Morphology Comment Normal (NORMAL) 09/04/17 17:17 RBC Morphology Abnormal (NORMAL) A 09/04/17 17:17 Hypochromasia Slight A 09/04/17 17:17 Anisocytosis Slight A 09/04/17 17:17 ESR 87 MM/HOUR (0-20) H 09/06/17 05:00 INR Target Range - 09/04/17 17:17 INR 1.21 (0.8-1.3) 09/04/17 17:17 PTT 37.2 SECONDS (22.9-36.5) H 09/04/17 17:17 PTT Comment - 09/04/17 17:17 D-Dimer 2060 ng/mL (0-400) H* 09/04/17 17:17 Sodium 138 mmol/L (136-145) 09/07/17 05:15 Corrected Sodium TNP 09/07/17 05:15 Potassium 4.5 mmol/L (3.5-5.1) 09/07/17 05:15 Chloride 105 mmol/L (98-107) 09/07/17 05:15 Carbon Dioxide 26.4 mmol/L (21-32) 09/07/17 05:15 BUN 13 mg/dL (7-18) 09/07/17 05:15 Creatinine 0.82 mg/dL (0.55-1.02) 09/07/17 05:15 Est GFR (MDRD) Af Amer > 60 (>60) 09/07/17 05:15 Est GFR (MDRD) Non-Af > 60 (>60) 09/07/17 05:15 Glucose 90 mg/dL (65-99) 09/07/17 05:15 POC Glucose (mg/dL) 154 mg/dL (65-99) H 09/06/17 11:54 Uric Acid 3.0 mg/dL (2.6-6.0) 09/06/17 05:00 Calcium 7.7 mg/dL (8.5-10.1) L 09/07/17 05:15 Corrected Calcium 9.4 mg/dL (8.5-10.1) 09/07/17 05:15 Magnesium 2.1 mg/dL (1.7-2.9) 09/04/17 17:17 Iron 28 ug/dL (50-175) L 09/04/17 17:17 Transferrin 207 mg/dL (202-364) 09/04/17 17:17 Ferritin 55 ng/mL (8-252) 09/04/17 17:17 Total Bilirubin 0.20 mg/dL (0.2-1.0) 09/07/17 05:15 AST 13 Units/L (15-37) L 09/07/17 05:15 ALT 17 Units/L (12-78) 09/07/17 05:15 Alkaline Phosphatase 46 Units/L (46-116) 09/07/17 05:15 Creatine Kinase 41 Units/L (26-192) 09/05/17 05:15 CK-MB (CK-2) < 1.0 ng/mL (0-4.0) 09/05/17 05:15 CK/CKMB % Calc 2.4 % (<4) 09/05/17 05:15 Troponin I < 0.02 ng/mL (0-1.5) 09/05/17 05:15 C-Reactive Protein 53.40 mg/L (0-3.0) H 09/06/17 05:00 Total Protein 5.8 g/dL (6.4-8.2) L 09/07/17 05:15 Albumin 1.9 g/dL (3.4-5.0) L 09/07/17 05:15 Globulin 3.9 g/dL (2.5-4.5) 09/07/17 05:15 Albumin/Globulin Ratio 0.5 Ratio (1.1-2.1) L 09/07/17 05:15 Vitamin B12 382 pg/mL (193-986) 09/04/17 17:17 Folate 15.4 ng/mL (>8.6) 09/04/17 17:17 Stool Description 50g black formed 09/05/17 17:58 Stl Occult Blood (IFOB) Positive (NEGATIVE) A 09/05/17 17:58 Stool for White Cells Negative (NEGATIVE) 09/05/17 17:58 Stl C. diff Tox B Gene Negative (NEGATIVE) 09/05/17 17:58 Stl C. diff [id number] Negative (NEGATIVE) 09/05/17 17:58 Cryptosporid parvum Ag Negative (NEGATIVE) 09/05/17 17:58 E. histolytica Antigen Negative (NEGATIVE) 09/05/17 17:58 Giardia lamblia Ag Negative (NEGATIVE) 09/05/17 17:58 Blood Type A POSITIVE 09/04/17 18:15 Antibody Screen Negative 09/04/17 18:15 Crossmatch See Detail 09/04/17 18:15 - Plan (1) Anemia Status: Acute Qualifiers: Anemia type: iron deficiency Iron deficiency anemia type: chronic blood loss Qualified Code(s): D50.0 - Iron deficiency anemia secondary to blood loss (chronic) Plan: TRANSFUSE TWO UNITS PACKED RED BLOOD CELLS, MONITOR H&H Q12H, 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 (2) Chest pain Status: Resolved Qualifiers: Chest pain type: chest pain on breathing Qualified Code(s): R07.1 - Chest pain on breathing; R07.81 - Pleurodynia Plan: TELEMETRY, SUPPLEMENTAL OXYGEN, 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 (3) Swelling of toe of left foot Status: Acute Plan: 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
[2017-09-07] MEDS: NEURONTIN CAP 300 MG PO SCH (20:13)
[2017-09-07] MEDS: TYLENOL 325 MG TAB PO PRN (23:45)
[2017-09-08] MEDS: REQUIP PO SCH ×3 (05:38→22:16)
[2017-09-08] MEDS: NS 1000 ML 1,000 ML IV SCH (05:38)
[2017-09-08 06:42] LABS: BASOPHILS # (AUTO) 0.1 X10^3/uL (0.0-0.1); BASOPHILS % (AUTO) 0.9 % (0.2-1.0); EOSINOPHILS # (AUTO) 0.1 x10^3/uL (0.0-0.2); EOSINOPHILS % (AUTO) 0.7 % (0.9-2.9); HEMATOCRIT 26.7 % (36.0-47.0); HEMOGLOBIN 9.2 g/dL (12.0-16.0); LYMPHOCYTES # (AUTO) 1.4 X10^3/uL (1.3-2.9); MEAN CORPUSCULAR HEMOGLOBIN 28.3 pg (27.0-34.0); MEAN CORPUSCULAR HGB CONC 34.6 g/dL (33.0-35.0); MEAN PLATELET VOLUME 8.2 fL (7.4-11.0); MONOCYTES # (AUTO) 0.9 x10^3/uL (0.3-0.8); MONOCYTES % (AUTO) 12.5 % (0.0-13.0); NEUTROPHILS % (AUTO) 66.9 % (42.0-75.0); PLATELET COUNT 326 X10^3/uL (150.0-450.0); RED BLOOD COUNT 3.26 X10^6/uL (3.5-5.4); RED CELL DISTRIBUTION WIDTH 16.4 % (11.6-16.5); WHITE BLOOD COUNT 7.4 X10^3/uL (3.6-10.0)
[2017-09-08 06:56] LABS: ALANINE AMINOTRANSFERASE 17 Units/L (12-78); ALKALINE PHOSPHATASE 47 Units/L (46-116); ASPARTATE AMINO TRANSFERASE 12 Units/L (15-37); BLOOD UREA NITROGEN 13 mg/dL (7-18); CALCIUM 7.7 mg/dL (8.5-10.1); CARBON DIOXIDE 26.8 mmol/L (21-32); CHLORIDE 104 mmol/L (98-107); COR CA(FOR HYPOALB) 9.3 mg/dL (8.5-10.1); CREATININE 0.97 mg/dL (0.55-1.02); SODIUM 139 mmol/L (136-145); TOTAL PROTEIN 5.8 g/dL (6.4-8.2); eGFR BLACK RACES > 60 (>60); eGFR NON BLACK RACES 59 (>60)
[2017-09-08] MEDS: PULMICORT NEB TX 0.5 MG NEB SCH ×2 (09:08→20:55)
[2017-09-08] MEDS: Atrovent NEB TX 0.02% IN SCH ×4 (09:08→20:53)
[2017-09-08] MEDS: SINGULAIR TAB 10 MG PO SCH (09:10)
[2017-09-08] MEDS: PRAVACHOL PO SCH (09:10)
[2017-09-08] MEDS: NAMENDA TAB 10 MG PO SCH ×2 (09:10→20:39)
[2017-09-08] MEDS: FERROUS GLUCONATE PO SCH (09:10)
[2017-09-08] MEDS: ARICEPT TAB 10 MG PO SCH (09:10)
[2017-09-08] MEDS: ULTRAM PO SCH ×4 (09:11→20:37)
[2017-09-08] MEDS: PEPCID 20 MG IV PREMIX* 20 MG/50 ML BAG IV SCH ×2 (09:11→20:37)
[2017-09-08] MEDS: PLAVIX PO SCH (09:11)
[2017-09-08] MEDS: ELIQUIS PO SCH ×2 (09:11→20:39)
[2017-09-08] MEDS: CORDARONE TAB 200 MG PO SCH (09:11)
[2017-09-08] MEDS: PROTONIX INJ 40 MG VIAL IVP SCH ×2 (09:12→20:37)
[2017-09-08] MEDS: ZOFRAN TAB 4 MG SL PRN (09:21)
--- NOTE | 2017-09-08 16:16 | VAS ---
HISTORY: Extremity pain, swelling, and edema Study: Right lower extremity Doppler venous ultrasound. TECHNIQUE: Multiple feliz scale and color flow Doppler images of the deep venous system were obtained of the right lower extremity. FINDINGS: The deep venous system of the right lower extremity evaluated from the level of the common femoral ve in through the popliteal vein. Normal color flow and augmentation can be observed. In addition, nor mal compression is seen throughout the deep venous system. IMPRESSION: 1. Negative examination for DVT. Reported By:
[2017-09-08] MEDS: NEURONTIN CAP 300 MG PO SCH (20:39)
[2017-09-08] MEDS: COLACE CAP 100 MG PO PRN (20:39)
[2017-09-09] MEDS: TYLENOL 325 MG TAB PO PRN (02:22)
[2017-09-09] MEDS: REQUIP PO SCH ×3 (05:00→21:59)
[2017-09-09 05:32] LABS: BASOPHILS # (AUTO) 0.1 X10^3/uL (0.0-0.1); BASOPHILS % (AUTO) 1.1 % (0.2-1.0); EOSINOPHILS # (AUTO) 0.1 x10^3/uL (0.0-0.2); EOSINOPHILS % (AUTO) 1.4 % (0.9-2.9); HEMATOCRIT 25.1 % (36.0-47.0); HEMOGLOBIN 8.6 g/dL (12.0-16.0); LYMPHOCYTES # (AUTO) 1.2 X10^3/uL (1.3-2.9); LYMPHOCYTES % (AUTO) 18.3 % (21.0-51.0); MEAN CORPUSCULAR HEMOGLOBIN 28.2 pg (27.0-34.0); MEAN CORPUSCULAR VOLUME 82.7 fL (80.0-100.0); MEAN PLATELET VOLUME 8.4 fL (7.4-11.0); MONOCYTES % (AUTO) 14.8 % (0.0-13.0); NEUTROPHILS # (AUTO) 4.2 x10^3/uL (2.2-4.8); NEUTROPHILS % (AUTO) 64.4 % (42.0-75.0); PLATELET COUNT 323 X10^3/uL (150.0-450.0); RED BLOOD COUNT 3.04 X10^6/uL (3.5-5.4); RED CELL DISTRIBUTION WIDTH 16.3 % (11.6-16.5); WHITE BLOOD COUNT 6.6 X10^3/uL (3.6-10.0)
[2017-09-09 05:50] LABS: ALANINE AMINOTRANSFERASE 15 Units/L (12-78); ALBUMIN 1.8 g/dL (3.4-5.0); ALKALINE PHOSPHATASE 45 Units/L (46-116); ASPARTATE AMINO TRANSFERASE 14 Units/L (15-37); BLOOD UREA NITROGEN 13 mg/dL (7-18); CALCIUM 7.4 mg/dL (8.5-10.1); CARBON DIOXIDE 27.4 mmol/L (21-32); CHLORIDE 104 mmol/L (98-107); COR CA(FOR HYPOALB) 9.2 mg/dL (8.5-10.1); CREATININE 0.92 mg/dL (0.55-1.02); SODIUM 138 mmol/L (136-145); TOTAL PROTEIN 5.5 g/dL (6.4-8.2); eGFR BLACK RACES > 60 (>60); eGFR NON BLACK RACES > 60 (>60)
[2017-09-09] MEDS: Atrovent NEB TX 0.02% IN SCH ×4 (09:06→20:43)
[2017-09-09] MEDS: PULMICORT NEB TX 0.5 MG NEB SCH ×2 (09:06→20:43)
[2017-09-09] MEDS: CORDARONE TAB 200 MG PO SCH (10:02)
[2017-09-09] MEDS: ELIQUIS PO SCH ×2 (10:02→21:58)
[2017-09-09] MEDS: FERROUS GLUCONATE PO SCH (10:02)
[2017-09-09] MEDS: ARICEPT TAB 10 MG PO SCH (10:02)
[2017-09-09] MEDS: PRAVACHOL PO SCH (10:03)
[2017-09-09] MEDS: PROTONIX INJ 40 MG VIAL IVP SCH ×2 (10:03→21:58)
[2017-09-09] MEDS: PLAVIX PO SCH (10:03)
[2017-09-09] MEDS: PEPCID 20 MG IV PREMIX* 20 MG/50 ML BAG IV SCH ×2 (10:03→21:58)
[2017-09-09] MEDS: NAMENDA TAB 10 MG PO SCH ×2 (10:03→21:59)
[2017-09-09] MEDS: COLACE CAP 100 MG PO PRN ×2 (10:04→21:59)
[2017-09-09] MEDS: SINGULAIR TAB 10 MG PO SCH (10:04)
[2017-09-09] MEDS: ULTRAM PO SCH ×4 (10:04→22:00)
[2017-09-09] MEDS: NS 1000 ML 1,000 ML IV SCH (13:06)
[2017-09-09] MEDS: NEURONTIN CAP 300 MG PO SCH (21:58)
[2017-09-10 05:35] LABS: BASOPHILS # (AUTO) 0.2 X10^3/uL (0.0-0.1); BASOPHILS % (AUTO) 2.4 % (0.2-1.0); EOSINOPHILS # (AUTO) 0.1 x10^3/uL (0.0-0.2); EOSINOPHILS % (AUTO) 1.4 % (0.9-2.9); HEMATOCRIT 25.6 % (36.0-47.0); HEMOGLOBIN 8.7 g/dL (12.0-16.0); LYMPHOCYTES # (AUTO) 1.3 X10^3/uL (1.3-2.9); LYMPHOCYTES % (AUTO) 19.2 % (21.0-51.0); MEAN CORPUSCULAR HEMOGLOBIN 27.9 pg (27.0-34.0); MEAN CORPUSCULAR HGB CONC 34.2 g/dL (33.0-35.0); MEAN CORPUSCULAR VOLUME 81.5 fL (80.0-100.0); MEAN PLATELET VOLUME 8.1 fL (7.4-11.0); MONOCYTES % (AUTO) 15.1 % (0.0-13.0); NEUTROPHILS # (AUTO) 4.3 x10^3/uL (2.2-4.8); NEUTROPHILS % (AUTO) 61.9 % (42.0-75.0); PLATELET COUNT 348 X10^3/uL (150.0-450.0); RED BLOOD COUNT 3.14 X10^6/uL (3.5-5.4); WHITE BLOOD COUNT 6.9 X10^3/uL (3.6-10.0)
[2017-09-10 05:42] LABS: ALANINE AMINOTRANSFERASE 15 Units/L (12-78); ALBUMIN 1.8 g/dL (3.4-5.0); ALKALINE PHOSPHATASE 50 Units/L (46-116); ASPARTATE AMINO TRANSFERASE 14 Units/L (15-37); BLOOD UREA NITROGEN 11 mg/dL (7-18); CALCIUM 7.6 mg/dL (8.5-10.1); CARBON DIOXIDE 28.9 mmol/L (21-32); CHLORIDE 103 mmol/L (98-107); COR CA(FOR HYPOALB) 9.4 mg/dL (8.5-10.1); CREATININE 0.77 mg/dL (0.55-1.02); SODIUM 138 mmol/L (136-145); TOTAL PROTEIN 5.7 g/dL (6.4-8.2); eGFR BLACK RACES > 60 (>60); eGFR NON BLACK RACES > 60 (>60)
[2017-09-10] MEDS: REQUIP PO SCH ×3 (05:51→21:07)
[2017-09-10] MEDS: NS 1000 ML 1,000 ML IV SCH ×3 (06:19→21:11)
[2017-09-10] MEDS: PULMICORT NEB TX 0.5 MG NEB SCH ×2 (09:23→20:36)
[2017-09-10] MEDS: Atrovent NEB TX 0.02% IN SCH ×4 (09:23→20:36)
[2017-09-10] MEDS: ELIQUIS PO SCH ×2 (09:25→21:08)
[2017-09-10] MEDS: PRAVACHOL PO SCH (09:26)
[2017-09-10] MEDS: PLAVIX PO SCH (09:26)
[2017-09-10] MEDS: SINGULAIR TAB 10 MG PO SCH (09:26)
[2017-09-10] MEDS: NAMENDA TAB 10 MG PO SCH ×2 (09:26→21:08)
[2017-09-10] MEDS: FERROUS GLUCONATE PO SCH (09:28)
[2017-09-10] MEDS: CORDARONE TAB 200 MG PO SCH (09:28)
[2017-09-10] MEDS: ULTRAM PO SCH ×4 (09:28→21:08)
[2017-09-10] MEDS: ARICEPT TAB 10 MG PO SCH (09:28)
[2017-09-10] MEDS: PROTONIX INJ 40 MG VIAL IVP SCH ×2 (09:30→21:07)
[2017-09-10] MEDS: PEPCID 20 MG IV PREMIX* 20 MG/50 ML BAG IV SCH (09:36)
[2017-09-10] MEDS: PEPCID TAB 20 MG PO SCH ×2 (11:31→21:07)
[2017-09-10] MEDS: MIRALAX POWDER (1 DOSE 17GM) PO SCH ×2 (11:52→21:09)
[2017-09-10] MEDS: MILK OF MAGNESIA PO SCH ×4 (11:52→21:10)
[2017-09-10] MEDS: CYMBALTA PO SCH (11:52)
[2017-09-10] MEDS: ZOFRAN TAB 4 MG SL PRN (17:27)
[2017-09-10] MEDS: NEURONTIN CAP 300 MG PO SCH (21:08)
--- NOTE | 2017-09-11 05:15 | PCM.PROG ---
Progress Note - Progress Note for Day of Date: 09/06/17 - Subjective Subjective: WAS ADMITTED FOR ANEMIA AND LEFT FOOT PAIN AND SWELLING. TODAY, SHE IS ALERT AND ORIENTED, LYING IN BED ON MORNING ROUNDS. PATIENT RECEIVED TWO UNITS OF PACKED RED BLOOD CELLS SINCE ADMISSION. WE 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 H&H. SHE IS CONTINUES WITH COMPLAINTS OF GENERALIZED WEAKNESS AND CONTINUES WITH LEFT FOOT PAIN, REDNESS, AND SWELLING. SHE IS ALSO NOTED WITH COMPLAINTS OF RIGHT FOOT PAIN AND SWELLING THIS MORNING. ON EXAMINATION, HEART IS REGULAR IN RATE AND RHYTHM. BILATERAL LUNGS ARE NOTED WITH DIMINISHED BREATH SOUNDS THROUGHOUT. ABDOMEN IS ROUND, SOFT, AND NOTED WITH MILD, DIFFUSE ABDOMINAL PAIN ON PALPATION. NORMAL BOWEL SOUNDS ARE NOTED IN ALL QUADRANTS. BILATERAL FEET/ANKLE ARE NOTED WITH ERYTHEMA AND EDEMA. THERE IS NORMAL RANGE OF MOTION NOTED TO ALL EXTREMITIES. HER VITALS THIS MORNING ARE 99.6-63-18-92%- 107/47. LABS WERE OBTAINED. ABNORMAL LAB VALUES INCLUDE THE FOLLOWING: HGB 10.3 , HCT 29.9, GLUCOSE 106, CALCIUM 8.0, CRP 53.40, ALBUMIN 2.3. STOOL STUDIES REPORT POSITIVE FOR WHITE BLOOD CELLS. WE WILL START TORADOL 15MG IV Q6H PRN FOR FEET PAIN AND SWELLING. WE WILL 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 H&H AND TRANSFUSE ADDITIONAL UNITS OF PRBC IF HEMOGLOBIN FALLS BELOW 8 g/dL. OTHERWISE, WE PLAN TO FOLLOW UP WITH AM LABS AND 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 PATIENT. - Past Medical Family Social History Past Med/Fam/Surg Hx: No changes since H&P Allergies: Allergies No Known Drug Allergies Allergy (Verified 09/04/17 17:08) - Review of Systems ROS: No change since H&P - Vital Signs and I&O's Vital Signs: Temperature 98.8 F Pulse Rate [Apical] 69 Pulse Rate 72 Respiratory Rate 18 Blood Pressure [Left Arm] 127/56 Blood Pressure [Right Calf] 142/51 Blood Pressure [Right Arm] 168/70 Blood Pressure 161/65 O2 Sat by Pulse Oximetry 90 Intake and Output: Intake & Output 09/08/17 09/09/17 09/10/17 09/11/17 11:59 11:59 11:59 11:59 Intake Total 1285 1020 1170 660 Balance 1285 1020 1170 660 - Physical Exam Oriented: Normal Eyes: Normal. negative: Blurred Vision, Diplopia, Discharge, Pain, Redness, Photophobia, Other Ear: Normal. negative: Right, Left, Swelling, Ecchymosis, Hemotypanum, Abrasion , Laceration Nose: Normal. negative: Injected, Discharge, Blood, Other Throat: Normal. negative: Tonsillar Hypertrophy, Red, Exudate, Dry, Other Respiratory: Diminished Cardiovascular: Normal. negative: S3, S4, Murmur : Normal. negative: Dysuria, Hematuria, Frequency, Discharge, Testicular Pain , Bleeding, , Other Auscultation: Bowel Sounds: Normal. negative: Bruit, Absent, Increased, Decreased, High Pitched, Other Palpation: Normal Tenderness: Diffuse, Mild. negative: Rebound, Guarding, Rigidity Skin: Red, Tender (LEFT FOOT ) Musculoskeletal: Left, Foot, Swelling, Tender Psychiatric: Normal Mood Description: Calm Affect: Normal Speech Pattern: Clear, Appropriate - Laboratory and Diagnostics Result Diagrams: 09/10/17 04:50 09/10/17 04:50 Labs: 09/06/17 05:40 Blood Blood Culture - Preliminary 09/06/17 05:00 Blood Blood Culture - Preliminary 09/05/17 17:58 Stool Stool Culture - Final 09/05/17 17:58 Stool - Final Laboratory WBC 6.9 X10^3/uL (3.6-10.0) 09/10/17 04:50 RBC 3.14 X10^6/uL (3.5-5.4) L 09/10/17 04:50 Hgb 8.7 g/dL (12.0-16.0) L 09/10/17 04:50 Hct 25.6 % (36.0-47.0) L 09/10/17 04:50 MCV 81.5 fL (80.0-100.0) 09/10/17 04:50 MCH 27.9 pg (27.0-34.0) 09/10/17 04:50 MCHC 34.2 g/dL (33.0-35.0) 09/10/17 04:50 RDW 16.0 % (11.6-16.5) 09/10/17 04:50 Plt Count 348 X10^3/uL (150.0-450.0) 09/10/17 04:50 Plt Count Comment Adequate (ADEQUATE) 09/04/17 17:17 MPV 8.1 fL (7.4-11.0) 09/10/17 04:50 Neut % 61.9 % (42.0-75.0) 09/10/17 04:50 Lymph % 19.2 % (21.0-51.0) L 09/10/17 04:50 [place] % 15.1 % (0.0-13.0) H 09/10/17 04:50 Eos % 1.4 % (0.9-2.9) 09/10/17 04:50 Baso % 2.4 % (0.2-1.0) H 09/10/17 04:50 Neut # 4.3 x10^3/uL (2.2-4.8) 09/10/17 04:50 Lymph # 1.3 X10^3/uL (1.3-2.9) 09/10/17 04:50 [place] # 1.0 x10^3/uL (0.3-0.8) H 09/10/17 04:50 Eos # 0.1 x10^3/uL (0.0-0.2) 09/10/17 04:50 Baso # 0.2 X10^3/uL (0.0-0.1) H 09/10/17 04:50 Absolute Nucleated RBC 0.0 /100WBC 09/10/17 04:50 Plt Morphology Comment Normal (NORMAL) 09/04/17 17:17 RBC Morphology Abnormal (NORMAL) A 09/04/17 17:17 Hypochromasia Slight A 09/04/17 17:17 Anisocytosis Slight A 09/04/17 17:17 ESR 87 MM/HOUR (0-20) H 09/06/17 05:00 INR Target Range - 09/04/17 17:17 INR 1.21 (0.8-1.3) 09/04/17 17:17 PTT 37.2 SECONDS (22.9-36.5) H 09/04/17 17:17 PTT Comment - 09/04/17 17:17 D-Dimer 2060 ng/mL (0-400) H* 09/04/17 17:17 Sodium 138 mmol/L (136-145) 09/10/17 04:50 Corrected Sodium TNP 09/10/17 04:50 Potassium 4.3 mmol/L (3.5-5.1) 09/10/17 04:50 Chloride 103 mmol/L (98-107) 09/10/17 04:50 Carbon Dioxide 28.9 mmol/L (21-32) 09/10/17 04:50 BUN 11 mg/dL (7-18) 09/10/17 04:50 Creatinine 0.77 mg/dL (0.55-1.02) 09/10/17 04:50 Est GFR (MDRD) Af Amer > 60 (>60) 09/10/17 04:50 Est GFR (MDRD) Non-Af > 60 (>60) 09/10/17 04:50 Glucose 94 mg/dL (65-99) 09/10/17 04:50 POC Glucose (mg/dL) 154 mg/dL (65-99) H 09/06/17 11:54 Uric Acid 3.0 mg/dL (2.6-6.0) 09/06/17 05:00 Calcium 7.6 mg/dL (8.5-10.1) L 09/10/17 04:50 Corrected Calcium 9.4 mg/dL (8.5-10.1) 09/10/17 04:50 Magnesium 2.1 mg/dL (1.7-2.9) 09/04/17 17:17 Iron 28 ug/dL (50-175) L 09/04/17 17:17 Transferrin 207 mg/dL (202-364) 09/04/17 17:17 Ferritin 55 ng/mL (8-252) 09/04/17 17:17 Total Bilirubin 0.20 mg/dL (0.2-1.0) 09/10/17 04:50 AST 14 Units/L (15-37) L 09/10/17 04:50 ALT 15 Units/L (12-78) 09/10/17 04:50 Alkaline Phosphatase 50 Units/L (46-116) 09/10/17 04:50 Creatine Kinase 41 Units/L (26-192) 09/05/17 05:15 CK-MB (CK-2) < 1.0 ng/mL (0-4.0) 09/05/17 05:15 CK/CKMB % Calc 2.4 % (<4) 09/05/17 05:15 Troponin I < 0.02 ng/mL (0-1.5) 09/05/17 05:15 C-Reactive Protein 53.40 mg/L (0-3.0) H 09/06/17 05:00 Total Protein 5.7 g/dL (6.4-8.2) L 09/10/17 04:50 Albumin 1.8 g/dL (3.4-5.0) L 09/10/17 04:50 Globulin 3.9 g/dL (2.5-4.5) 09/10/17 04:50 Albumin/Globulin Ratio 0.5 Ratio (1.1-2.1) L 09/10/17 04:50 Vitamin B12 382 pg/mL (193-986) 09/04/17 17:17 Folate 15.4 ng/mL (>8.6) 09/04/17 17:17 Stool Description 5 g unformed 09/11/17 00:39 Stl Occult Blood (IFOB) Positive (NEGATIVE) A 09/11/17 00:39 Stool for White Cells Negative (NEGATIVE) 09/05/17 17:58 Stl C. diff Tox B Gene Negative (NEGATIVE) 09/05/17 17:58 Stl C. diff [id number] Negative (NEGATIVE) 09/05/17 17:58 Cryptosporid parvum Ag Negative (NEGATIVE) 09/05/17 17:58 E. histolytica Antigen Negative (NEGATIVE) 09/05/17 17:58 Giardia lamblia Ag Negative (NEGATIVE) 09/05/17 17:58 Blood Type A POSITIVE 09/04/17 18:15 Antibody Screen Negative 09/04/17 18:15 Crossmatch See Detail 09/04/17 18:15 - Plan (1) Anemia Status: Acute Qualifiers: Anemia type: iron deficiency Iron deficiency anemia type: chronic blood loss Qualified Code(s): D50.0 - Iron deficiency anemia secondary to blood loss (chronic) Plan: TRANSFUSE TWO UNITS PACKED RED BLOOD CELLS IF HGB FALLS BELOW 8, MONITOR H &H Q12H, 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 (2) Chest pain Status: Resolved Qualifiers: Chest pain type: chest pain on breathing Qualified Code(s): R07.1 - Chest pain on breathing; R07.81 - Pleurodynia Plan: TELEMETRY, SUPPLEMENTAL OXYGEN, 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 (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
[2017-09-11] MEDS: REQUIP PO SCH ×3 (05:57→21:28)
--- NOTE | 2017-09-11 06:05 | PCM.PROG ---
Progress Note - Progress Note for Day of Date: 09/07/17 - Subjective Subjective: IS BEING TREATED FOR ANEMIA AND REACTIVE ARTHRITIS OF BILATERAL FEET. TODAY, SHE IS ALERT AND ORIENTED, LYING IN BED ON MORNING ROUNDS. SHE CONTINUES WITH COMPLAINTS OF GENERALIZED WEAKNESS AND CONTINUES WITH PAIN, ERYTHEMA, AND EDEMA TO BILATERAL FEET. ON EXAMINATION, HEART IS REGULAR IN RATE AND RHYTHM. BILATERAL LUNGS ARE NOTED WITH DIMINISHED BREATH SOUNDS THROUGHOUT. ABDOMEN IS ROUND, SOFT, AND NOTED WITH MILD, DIFFUSE ABDOMINAL PAIN ON PALPATION. NORMAL BOWEL SOUNDS ARE NOTED IN ALL QUADRANTS. BILATERAL FEET/ANKLE ARE NOTED WITH ERYTHEMA AND EDEMA. THERE IS NORMAL RANGE OF MOTION NOTED TO ALL EXTREMITIES. HER VITALS THIS MORNING ARE 98.0-64-18-94%- 133/50. LABS WERE OBTAINED. ABNORMAL LAB VALUES INCLUDE THE FOLLOWING: HGB 9.3, HCT 27.4, CALCIUM 7.7, AST 13. PATIENT CONTINUES TO REPORT DARK, TARRY STOOLS. WE WILL 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 H&H AND TRANSFUSE ADDITIONAL UNITS OF PRBC IF HEMOGLOBIN FALLS BELOW 8 g/dL. OTHERWISE, WE PLAN TO FOLLOW UP WITH AM LABS AND 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 PATIENT. - Past Medical Family Social History Past Med/Fam/Surg Hx: No changes since H&P Allergies: Allergies No Known Drug Allergies Allergy (Verified 09/04/17 17:08) - Review of Systems ROS: No change since H&P - Vital Signs and I&O's Vital Signs: Temperature 98.8 F Pulse Rate [Apical] 69 Pulse Rate 72 Respiratory Rate 18 Blood Pressure [Left Arm] 127/56 Blood Pressure [Right Calf] 142/51 Blood Pressure [Right Arm] 168/70 Blood Pressure 161/65 O2 Sat by Pulse Oximetry 90 Intake and Output: Intake & Output 09/08/17 09/09/17 09/10/17 09/11/17 11:59 11:59 11:59 11:59 Intake Total 1285 1020 1170 660 Balance 1285 1020 1170 660 - Physical Exam Oriented: Normal Eyes: Normal. negative: Blurred Vision, Diplopia, Discharge, Pain, Redness, Photophobia, Other Ear: Normal. negative: Right, Left, Swelling, Ecchymosis, Hemotypanum, Abrasion , Laceration Nose: Normal. negative: Injected, Discharge, Blood, Other Throat: Normal. negative: Tonsillar Hypertrophy, Red, Exudate, Dry, Other Respiratory: Diminished Cardiovascular: Normal. negative: S3, S4, Murmur : Normal. negative: Dysuria, Hematuria, Frequency, Discharge, Testicular Pain , Bleeding, , Other Auscultation: Bowel Sounds: Normal. negative: Bruit, Absent, Increased, Decreased, High Pitched, Other Palpation: Normal Tenderness: Diffuse, Mild. negative: Rebound, Guarding, Rigidity Skin: Red, Tender (LEFT FOOT ) Musculoskeletal: Left, Foot, Swelling, Tender Psychiatric: Normal Mood Description: Calm Affect: Normal Speech Pattern: Clear, Appropriate - Laboratory and Diagnostics Result Diagrams: 09/10/17 04:50 09/10/17 04:50 Labs: 09/06/17 05:40 Blood Blood Culture - Preliminary 09/06/17 05:00 Blood Blood Culture - Preliminary 09/05/17 17:58 Stool Stool Culture - Final 09/05/17 17:58 Stool - Final Laboratory WBC 6.9 X10^3/uL (3.6-10.0) 09/10/17 04:50 RBC 3.14 X10^6/uL (3.5-5.4) L 09/10/17 04:50 Hgb 8.7 g/dL (12.0-16.0) L 09/10/17 04:50 Hct 25.6 % (36.0-47.0) L 09/10/17 04:50 MCV 81.5 fL (80.0-100.0) 09/10/17 04:50 MCH 27.9 pg (27.0-34.0) 09/10/17 04:50 MCHC 34.2 g/dL (33.0-35.0) 09/10/17 04:50 RDW 16.0 % (11.6-16.5) 09/10/17 04:50 Plt Count 348 X10^3/uL (150.0-450.0) 09/10/17 04:50 Plt Count Comment Adequate (ADEQUATE) 09/04/17 17:17 MPV 8.1 fL (7.4-11.0) 09/10/17 04:50 Neut % 61.9 % (42.0-75.0) 09/10/17 04:50 Lymph % 19.2 % (21.0-51.0) L 09/10/17 04:50 [place] % 15.1 % (0.0-13.0) H 09/10/17 04:50 Eos % 1.4 % (0.9-2.9) 09/10/17 04:50 Baso % 2.4 % (0.2-1.0) H 09/10/17 04:50 Neut # 4.3 x10^3/uL (2.2-4.8) 09/10/17 04:50 Lymph # 1.3 X10^3/uL (1.3-2.9) 09/10/17 04:50 [place] # 1.0 x10^3/uL (0.3-0.8) H 09/10/17 04:50 Eos # 0.1 x10^3/uL (0.0-0.2) 09/10/17 04:50 Baso # 0.2 X10^3/uL (0.0-0.1) H 09/10/17 04:50 Absolute Nucleated RBC 0.0 /100WBC 09/10/17 04:50 Plt Morphology Comment Normal (NORMAL) 09/04/17 17:17 RBC Morphology Abnormal (NORMAL) A 09/04/17 17:17 Hypochromasia Slight A 09/04/17 17:17 Anisocytosis Slight A 09/04/17 17:17 ESR 87 MM/HOUR (0-20) H 09/06/17 05:00 INR Target Range - 09/04/17 17:17 INR 1.21 (0.8-1.3) 09/04/17 17:17 PTT 37.2 SECONDS (22.9-36.5) H 09/04/17 17:17 PTT Comment - 09/04/17 17:17 D-Dimer 2060 ng/mL (0-400) H* 09/04/17 17:17 Sodium 138 mmol/L (136-145) 09/10/17 04:50 Corrected Sodium TNP 09/10/17 04:50 Potassium 4.3 mmol/L (3.5-5.1) 09/10/17 04:50 Chloride 103 mmol/L (98-107) 09/10/17 04:50 Carbon Dioxide 28.9 mmol/L (21-32) 09/10/17 04:50 BUN 11 mg/dL (7-18) 09/10/17 04:50 Creatinine 0.77 mg/dL (0.55-1.02) 09/10/17 04:50 Est GFR (MDRD) Af Amer > 60 (>60) 09/10/17 04:50 Est GFR (MDRD) Non-Af > 60 (>60) 09/10/17 04:50 Glucose 94 mg/dL (65-99) 09/10/17 04:50 POC Glucose (mg/dL) 154 mg/dL (65-99) H 09/06/17 11:54 Uric Acid 3.0 mg/dL (2.6-6.0) 09/06/17 05:00 Calcium 7.6 mg/dL (8.5-10.1) L 09/10/17 04:50 Corrected Calcium 9.4 mg/dL (8.5-10.1) 09/10/17 04:50 Magnesium 2.1 mg/dL (1.7-2.9) 09/04/17 17:17 Iron 28 ug/dL (50-175) L 09/04/17 17:17 Transferrin 207 mg/dL (202-364) 09/04/17 17:17 Ferritin 55 ng/mL (8-252) 09/04/17 17:17 Total Bilirubin 0.20 mg/dL (0.2-1.0) 09/10/17 04:50 AST 14 Units/L (15-37) L 09/10/17 04:50 ALT 15 Units/L (12-78) 09/10/17 04:50 Alkaline Phosphatase 50 Units/L (46-116) 09/10/17 04:50 Creatine Kinase 41 Units/L (26-192) 09/05/17 05:15 CK-MB (CK-2) < 1.0 ng/mL (0-4.0) 09/05/17 05:15 CK/CKMB % Calc 2.4 % (<4) 09/05/17 05:15 Troponin I < 0.02 ng/mL (0-1.5) 09/05/17 05:15 C-Reactive Protein 53.40 mg/L (0-3.0) H 09/06/17 05:00 Total Protein 5.7 g/dL (6.4-8.2) L 09/10/17 04:50 Albumin 1.8 g/dL (3.4-5.0) L 09/10/17 04:50 Globulin 3.9 g/dL (2.5-4.5) 09/10/17 04:50 Albumin/Globulin Ratio 0.5 Ratio (1.1-2.1) L 09/10/17 04:50 Vitamin B12 382 pg/mL (193-986) 09/04/17 17:17 Folate 15.4 ng/mL (>8.6) 09/04/17 17:17 Stool Description 5 g unformed 09/11/17 00:39 Stl Occult Blood (IFOB) Positive (NEGATIVE) A 09/11/17 00:39 Stool for White Cells Negative (NEGATIVE) 09/05/17 17:58 Stl C. diff Tox B Gene Negative (NEGATIVE) 09/05/17 17:58 Stl C. diff [id number] Negative (NEGATIVE) 09/05/17 17:58 Cryptosporid parvum Ag Negative (NEGATIVE) 09/05/17 17:58 E. histolytica Antigen Negative (NEGATIVE) 09/05/17 17:58 Giardia lamblia Ag Negative (NEGATIVE) 09/05/17 17:58 Blood Type A POSITIVE 09/04/17 18:15 Antibody Screen Negative 09/04/17 18:15 Crossmatch See Detail 09/04/17 18:15 - Plan (1) Anemia Status: Acute Qualifiers: Anemia type: iron deficiency Iron deficiency anemia type: chronic blood loss Qualified Code(s): D50.0 - Iron deficiency anemia secondary to blood loss (chronic) Plan: TRANSFUSE TWO UNITS PACKED RED BLOOD CELLS IF HGB FALLS BELOW 8, MONITOR H &H Q12H, 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 (2) Chest pain Status: Resolved Qualifiers: Chest pain type: chest pain on breathing Qualified Code(s): R07.1 - Chest pain on breathing; R07.81 - Pleurodynia Plan: TELEMETRY, SUPPLEMENTAL OXYGEN, 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 (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
[2017-09-11 06:13] LABS: BASOPHILS # (AUTO) 0.1 X10^3/uL (0.0-0.1); BASOPHILS % (AUTO) 1.3 % (0.2-1.0); EOSINOPHILS # (AUTO) 0.1 x10^3/uL (0.0-0.2); EOSINOPHILS % (AUTO) 1.3 % (0.9-2.9); HEMATOCRIT 26.6 % (36.0-47.0); LYMPHOCYTES # (AUTO) 1.3 X10^3/uL (1.3-2.9); LYMPHOCYTES % (AUTO) 17.7 % (21.0-51.0); MEAN CORPUSCULAR HEMOGLOBIN 27.8 pg (27.0-34.0); MEAN CORPUSCULAR VOLUME 81.7 fL (80.0-100.0); MEAN PLATELET VOLUME 8.3 fL (7.4-11.0); MONOCYTES # (AUTO) 0.9 x10^3/uL (0.3-0.8); NEUTROPHILS # (AUTO) 4.8 x10^3/uL (2.2-4.8); NEUTROPHILS % (AUTO) 66.7 % (42.0-75.0); PLATELET COUNT 372 X10^3/uL (150.0-450.0); RED BLOOD COUNT 3.25 X10^6/uL (3.5-5.4); RED CELL DISTRIBUTION WIDTH 16.2 % (11.6-16.5); WHITE BLOOD COUNT 7.1 X10^3/uL (3.6-10.0)
[2017-09-11 06:28] LABS: ALANINE AMINOTRANSFERASE 17 Units/L (12-78); ALBUMIN 1.9 g/dL (3.4-5.0); ALKALINE PHOSPHATASE 50 Units/L (46-116); ASPARTATE AMINO TRANSFERASE 15 Units/L (15-37); BLOOD UREA NITROGEN 12 mg/dL (7-18); CALCIUM 7.9 mg/dL (8.5-10.1); CARBON DIOXIDE 28.1 mmol/L (21-32); CHLORIDE 103 mmol/L (98-107); COR CA(FOR HYPOALB) 9.6 mg/dL (8.5-10.1); COR NA(FOR HYPERGLY) 139 mmol/L (136-145); CREATININE 0.84 mg/dL (0.55-1.02); SODIUM 139 mmol/L (136-145); TOTAL PROTEIN 6.2 g/dL (6.4-8.2); eGFR BLACK RACES > 60 (>60); eGFR NON BLACK RACES > 60 (>60)
[2017-09-11] MEDS: PLAVIX PO SCH (08:23)
[2017-09-11] MEDS: ELIQUIS PO SCH ×2 (08:23→20:13)
[2017-09-11] MEDS: CYMBALTA PO SCH (08:23)
[2017-09-11] MEDS: PRAVACHOL PO SCH (08:23)
[2017-09-11] MEDS: ARICEPT TAB 10 MG PO SCH (08:23)
[2017-09-11] MEDS: PROTONIX INJ 40 MG VIAL IVP SCH ×2 (08:23→20:14)
[2017-09-11] MEDS: FERROUS GLUCONATE PO SCH (08:23)
[2017-09-11] MEDS: SINGULAIR TAB 10 MG PO SCH (08:24)
[2017-09-11] MEDS: ULTRAM PO SCH ×4 (08:24→20:11)
[2017-09-11] MEDS: NAMENDA TAB 10 MG PO SCH ×2 (08:25→20:12)
[2017-09-11] MEDS: PEPCID TAB 20 MG PO SCH ×2 (08:25→20:14)
[2017-09-11] MEDS: CORDARONE TAB 200 MG PO SCH (08:25)
[2017-09-11] MEDS: PULMICORT NEB TX 0.5 MG NEB SCH ×2 (09:32→20:25)
[2017-09-11] MEDS: Atrovent NEB TX 0.02% IN SCH ×4 (09:32→20:25)
[2017-09-11] MEDS: MILK OF MAGNESIA PO SCH ×4 (09:42→20:13)
[2017-09-11] MEDS: NS 1000 ML 1,000 ML IV SCH ×2 (09:55→22:05)
--- NOTE | 2017-09-11 13:43 | PCM.PROG ---
Progress Note - Progress Note for Day of Date: 09/08/17 - Subjective Subjective: IS BEING TREATED FOR ANEMIA, GI BLEED, AND REACTIVE ARTHRITIS OF BILATERAL FEET. TODAY, SHE IS ALERT AND ORIENTED, LYING IN BED ON MORNING ROUNDS. SHE CONTINUES WITH COMPLAINTS OF GENERALIZED WEAKNESS AND CONTINUES WITH PAIN, ERYTHEMA, AND EDEMA TO BILATERAL FEET. SHE ALSO CONTINUES WITH DARK, TARRY STOOLS. ON EXAMINATION, HEART IS REGULAR IN RATE AND RHYTHM. BILATERAL LUNGS ARE NOTED WITH DIMINISHED BREATH SOUNDS THROUGHOUT. ABDOMEN IS ROUND, SOFT, AND NOTED WITH MILD, DIFFUSE ABDOMINAL PAIN ON PALPATION. NORMAL BOWEL SOUNDS ARE NOTED IN ALL QUADRANTS. BILATERAL FEET/ANKLE ARE CONTINUE WITH ERYTHEMA AND EDEMA. ERYTHEMA IS NOTED TO BE INCREASED TO RIGHT CALF AREA TODAY. THERE IS NORMAL RANGE OF MOTION NOTED TO ALL EXTREMITIES. HER VITALS THIS MORNING ARE 98.1-69-18-91%-174/70. STAFF REPORTS THAT PATIENTS TEMPERATURE DID REACH 100.7 AT MIDNIGHT. SHE WAS GIVEN TYLENOL AND HAS BEEN AFEBRIL SINCE. LABS WERE OBTAINED. ABNORMAL LAB VALUES INCLUDE THE FOLLOWING: RBC 3.26, HGB 9.2, HCT 26.7, CALCIUM 7.7, AST 12, TOTAL PROTEIN 5.8, ALBUMIN 2.0. TODAY, WE WILL ORDER A VENOUS DOPPLER OF THE RIGHT LEG. WE WILL 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 H&H AND TRANSFUSE ADDITIONAL UNITS OF PRBC IF HEMOGLOBIN FALLS BELOW 8 g/dL. OTHERWISE, WE PLAN TO FOLLOW UP WITH AM LABS AND 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 PATIENT. - Past Medical Family Social History Past Med/Fam/Surg Hx: No changes since H&P Allergies: Allergies No Known Drug Allergies Allergy (Verified 09/04/17 17:08) - Review of Systems ROS: No change since H&P - Vital Signs and I&O's Vital Signs: Temperature 98.5 F Pulse Rate [Apical] 70 Pulse Rate 72 Respiratory Rate 18 Blood Pressure [Left Arm] 167/67 Blood Pressure [Right Calf] 142/51 Blood Pressure [Right Arm] 168/70 Blood Pressure 161/65 O2 Sat by Pulse Oximetry 93 Intake and Output: Intake & Output 09/09/17 09/10/17 09/11/17 09/12/17 11:59 11:59 11:59 11:59 Intake Total 1020 1170 920 Balance 1020 1170 920 - Physical Exam Oriented: Normal Eyes: Normal. negative: Blurred Vision, Diplopia, Discharge, Pain, Redness, Photophobia, Other Ear: Normal. negative: Right, Left, Swelling, Ecchymosis, Hemotypanum, Abrasion , Laceration Nose: Normal. negative: Injected, Discharge, Blood, Other Throat: Normal. negative: Tonsillar Hypertrophy, Red, Exudate, Dry, Other Respiratory: Diminished Cardiovascular: Normal. negative: S3, S4, Murmur : Normal. negative: Dysuria, Hematuria, Frequency, Discharge, Testicular Pain , Bleeding, , Other Auscultation: Bowel Sounds: Normal. negative: Bruit, Absent, Increased, Decreased, High Pitched, Other Palpation: Normal Tenderness: Diffuse, Mild. negative: Rebound, Guarding, Rigidity Skin: Red, Tender (LEFT FOOT ) Musculoskeletal: Left, Foot, Swelling, Tender Psychiatric: Normal Mood Description: Calm Affect: Normal Speech Pattern: Clear, Appropriate - Laboratory and Diagnostics Result Diagrams: 09/11/17 05:05 09/11/17 05:05 Labs: 09/06/17 05:40 Blood Blood Culture - Final 09/06/17 05:00 Blood Blood Culture - Final 09/05/17 17:58 Stool Stool Culture - Final 09/05/17 17:58 Stool - Final Laboratory WBC 7.1 X10^3/uL (3.6-10.0) 09/11/17 05:05 RBC 3.25 X10^6/uL (3.5-5.4) L 09/11/17 05:05 Hgb 9.0 g/dL (12.0-16.0) L 09/11/17 05:05 Hct 26.6 % (36.0-47.0) L 09/11/17 05:05 MCV 81.7 fL (80.0-100.0) 09/11/17 05:05 MCH 27.8 pg (27.0-34.0) 09/11/17 05:05 MCHC 34.0 g/dL (33.0-35.0) 09/11/17 05:05 RDW 16.2 % (11.6-16.5) 09/11/17 05:05 Plt Count 372 X10^3/uL (150.0-450.0) 09/11/17 05:05 Plt Count Comment Adequate (ADEQUATE) 09/04/17 17:17 MPV 8.3 fL (7.4-11.0) 09/11/17 05:05 Neut % 66.7 % (42.0-75.0) 09/11/17 05:05 Lymph % 17.7 % (21.0-51.0) L 09/11/17 05:05 [place] % 13.0 % (0.0-13.0) 09/11/17 05:05 Eos % 1.3 % (0.9-2.9) 09/11/17 05:05 Baso % 1.3 % (0.2-1.0) H 09/11/17 05:05 Neut # 4.8 x10^3/uL (2.2-4.8) 09/11/17 05:05 Lymph # 1.3 X10^3/uL (1.3-2.9) 09/11/17 05:05 [place] # 0.9 x10^3/uL (0.3-0.8) H 09/11/17 05:05 Eos # 0.1 x10^3/uL (0.0-0.2) 09/11/17 05:05 Baso # 0.1 X10^3/uL (0.0-0.1) 09/11/17 05:05 Absolute Nucleated RBC 0.0 /100WBC 09/11/17 05:05 Plt Morphology Comment Normal (NORMAL) 09/04/17 17:17 RBC Morphology Abnormal (NORMAL) A 09/04/17 17:17 Hypochromasia Slight A 09/04/17 17:17 Anisocytosis Slight A 09/04/17 17:17 ESR 87 MM/HOUR (0-20) H 09/06/17 05:00 INR Target Range - 09/04/17 17:17 INR 1.21 (0.8-1.3) 09/04/17 17:17 PTT 37.2 SECONDS (22.9-36.5) H 09/04/17 17:17 PTT Comment - 09/04/17 17:17 D-Dimer 2060 ng/mL (0-400) H* 09/04/17 17:17 Sodium 139 mmol/L (136-145) 09/11/17 05:05 Corrected Sodium 139 mmol/L (136-145) 09/11/17 05:05 Potassium 4.1 mmol/L (3.5-5.1) 09/11/17 05:05 Chloride 103 mmol/L (98-107) 09/11/17 05:05 Carbon Dioxide 28.1 mmol/L (21-32) 09/11/17 05:05 BUN 12 mg/dL (7-18) 09/11/17 05:05 Creatinine 0.84 mg/dL (0.55-1.02) 09/11/17 05:05 Est GFR (MDRD) Af Amer > 60 (>60) 09/11/17 05:05 Est GFR (MDRD) Non-Af > 60 (>60) 09/11/17 05:05 Glucose 118 mg/dL (65-99) H 09/11/17 05:05 POC Glucose (mg/dL) 154 mg/dL (65-99) H 09/06/17 11:54 Uric Acid 3.0 mg/dL (2.6-6.0) 09/06/17 05:00 Calcium 7.9 mg/dL (8.5-10.1) L 09/11/17 05:05 Corrected Calcium 9.6 mg/dL (8.5-10.1) 09/11/17 05:05 Magnesium 2.1 mg/dL (1.7-2.9) 09/04/17 17:17 Iron 28 ug/dL (50-175) L 09/04/17 17:17 Transferrin 207 mg/dL (202-364) 09/04/17 17:17 Ferritin 55 ng/mL (8-252) 09/04/17 17:17 Total Bilirubin 0.10 mg/dL (0.2-1.0) L 09/11/17 05:05 AST 15 Units/L (15-37) 09/11/17 05:05 ALT 17 Units/L (12-78) 09/11/17 05:05 Alkaline Phosphatase 50 Units/L (46-116) 09/11/17 05:05 Creatine Kinase 41 Units/L (26-192) 09/05/17 05:15 CK-MB (CK-2) < 1.0 ng/mL (0-4.0) 09/05/17 05:15 CK/CKMB % Calc 2.4 % (<4) 09/05/17 05:15 Troponin I < 0.02 ng/mL (0-1.5) 09/05/17 05:15 C-Reactive Protein 53.40 mg/L (0-3.0) H 09/06/17 05:00 Total Protein 6.2 g/dL (6.4-8.2) L 09/11/17 05:05 Albumin 1.9 g/dL (3.4-5.0) L 09/11/17 05:05 Globulin 4.3 g/dL (2.5-4.5) 09/11/17 05:05 Albumin/Globulin Ratio 0.4 Ratio (1.1-2.1) L 09/11/17 05:05 Vitamin B12 382 pg/mL (193-986) 09/04/17 17:17 Folate 15.4 ng/mL (>8.6) 09/04/17 17:17 Stool Description 5 g unformed 09/11/17 00:39 Stl Occult Blood (IFOB) Positive (NEGATIVE) A 09/11/17 00:39 Stool for White Cells Negative (NEGATIVE) 09/05/17 17:58 Stl C. diff Tox B Gene Negative (NEGATIVE) 09/05/17 17:58 Stl C. diff [id number] Negative (NEGATIVE) 09/05/17 17:58 Cryptosporid parvum Ag Negative (NEGATIVE) 09/05/17 17:58 E. histolytica Antigen Negative (NEGATIVE) 09/05/17 17:58 Giardia lamblia Ag Negative (NEGATIVE) 09/05/17 17:58 Blood Type A POSITIVE 09/04/17 18:15 Antibody Screen Negative 09/04/17 18:15 Crossmatch See Detail 09/04/17 18:15 - Plan (1) Anemia Status: Acute Qualifiers: Anemia type: iron deficiency Iron deficiency anemia type: chronic blood loss Qualified Code(s): D50.0 - Iron deficiency anemia secondary to blood loss (chronic) Plan: TRANSFUSE TWO UNITS PACKED RED BLOOD CELLS IF HGB FALLS BELOW 8, MONITOR H &H Q12H, 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 (2) Chest pain Status: Resolved Qualifiers: Chest pain type: chest pain on breathing Qualified Code(s): R07.1 - Chest pain on breathing; R07.81 - Pleurodynia Plan: TELEMETRY, SUPPLEMENTAL OXYGEN, 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 (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
--- NOTE | 2017-09-11 13:50 | PCM.PROG ---
Progress Note - Progress Note for Day of Date: 09/09/17 - Subjective Subjective: IS BEING TREATED FOR ANEMIA, GI BLEED, AND REACTIVE ARTHRITIS OF BILATERAL FEET. TODAY, SHE IS ALERT AND ORIENTED, LYING IN BED ON MORNING ROUNDS. SHE CONTINUES WITH COMPLAINTS OF GENERALIZED WEAKNESS AND CONTINUES WITH PAIN, ERYTHEMA, AND EDEMA TO BILATERAL FEET. SHE ALSO CONTINUES WITH DARK, TARRY STOOLS. ON EXAMINATION, HEART IS REGULAR IN RATE AND RHYTHM. BILATERAL LUNGS ARE NOTED WITH DIMINISHED BREATH SOUNDS THROUGHOUT. ABDOMEN IS ROUND, SOFT, AND NOTED WITH MILD, DIFFUSE ABDOMINAL PAIN ON PALPATION. NORMAL BOWEL SOUNDS ARE NOTED IN ALL QUADRANTS. BILATERAL FEET/ANKLE ARE CONTINUE WITH ERYTHEMA AND EDEMA. THERE IS NORMAL RANGE OF MOTION NOTED TO ALL EXTREMITIES. HER VITALS THIS MORNING ARE 98.2-66-18-94%-134/55. STAFF REPORTS THAT PATIENTS TEMPERATURE DID REACH 100.0 AT MIDNIGHT. LABS WERE OBTAINED. HGB 8.6, HCT 25.1. OTHERWISE, SHE IS HEMODYNAMICALLY STABLE. VENOUS DOPPLER WAS NEGATIVE FOR DVT. WE PLAN TO CONSULT GASTROENTEROLOGY. OTHERWISE, WE WILL 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 H&H AND TRANSFUSE ADDITIONAL UNITS OF PRBC IF HEMOGLOBIN FALLS BELOW 8 g/dL. WE PLAN TO FOLLOW UP WITH AM LABS AND 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 PATIENT. - Past Medical Family Social History Past Med/Fam/Surg Hx: No changes since H&P Allergies: Allergies No Known Drug Allergies Allergy (Verified 09/04/17 17:08) - Review of Systems ROS: No change since H&P - Vital Signs and I&O's Vital Signs: Temperature 98.5 F Pulse Rate [Apical] 70 Pulse Rate 72 Respiratory Rate 18 Blood Pressure [Left Arm] 167/67 Blood Pressure [Right Calf] 142/51 Blood Pressure [Right Arm] 168/70 Blood Pressure 161/65 O2 Sat by Pulse Oximetry 93 Intake and Output: Intake & Output 09/09/17 09/10/17 09/11/17 09/12/17 11:59 11:59 11:59 11:59 Intake Total 1020 1170 920 Balance 1020 1170 920 - Physical Exam Oriented: Normal Eyes: Normal. negative: Blurred Vision, Diplopia, Discharge, Pain, Redness, Photophobia, Other Ear: Normal. negative: Right, Left, Swelling, Ecchymosis, Hemotypanum, Abrasion , Laceration Nose: Normal. negative: Injected, Discharge, Blood, Other Throat: Normal. negative: Tonsillar Hypertrophy, Red, Exudate, Dry, Other Respiratory: Diminished Cardiovascular: Normal. negative: S3, S4, Murmur : Normal. negative: Dysuria, Hematuria, Frequency, Discharge, Testicular Pain , Bleeding, , Other Auscultation: Bowel Sounds: Normal. negative: Bruit, Absent, Increased, Decreased, High Pitched, Other Palpation: Normal Tenderness: Diffuse, Mild. negative: Rebound, Guarding, Rigidity Skin: Red, Tender (LEFT FOOT ) Musculoskeletal: Left, Foot, Swelling, Tender Psychiatric: Normal Mood Description: Calm Affect: Normal Speech Pattern: Clear, Appropriate - Laboratory and Diagnostics Result Diagrams: 09/11/17 05:05 09/11/17 05:05 Labs: 09/06/17 05:40 Blood Blood Culture - Final 09/06/17 05:00 Blood Blood Culture - Final 09/05/17 17:58 Stool Stool Culture - Final 09/05/17 17:58 Stool - Final Laboratory WBC 7.1 X10^3/uL (3.6-10.0) 09/11/17 05:05 RBC 3.25 X10^6/uL (3.5-5.4) L 09/11/17 05:05 Hgb 9.0 g/dL (12.0-16.0) L 09/11/17 05:05 Hct 26.6 % (36.0-47.0) L 09/11/17 05:05 MCV 81.7 fL (80.0-100.0) 09/11/17 05:05 MCH 27.8 pg (27.0-34.0) 09/11/17 05:05 MCHC 34.0 g/dL (33.0-35.0) 09/11/17 05:05 RDW 16.2 % (11.6-16.5) 09/11/17 05:05 Plt Count 372 X10^3/uL (150.0-450.0) 09/11/17 05:05 Plt Count Comment Adequate (ADEQUATE) 09/04/17 17:17 MPV 8.3 fL (7.4-11.0) 09/11/17 05:05 Neut % 66.7 % (42.0-75.0) 09/11/17 05:05 Lymph % 17.7 % (21.0-51.0) L 09/11/17 05:05 [place] % 13.0 % (0.0-13.0) 09/11/17 05:05 Eos % 1.3 % (0.9-2.9) 09/11/17 05:05 Baso % 1.3 % (0.2-1.0) H 09/11/17 05:05 Neut # 4.8 x10^3/uL (2.2-4.8) 09/11/17 05:05 Lymph # 1.3 X10^3/uL (1.3-2.9) 09/11/17 05:05 [place] # 0.9 x10^3/uL (0.3-0.8) H 09/11/17 05:05 Eos # 0.1 x10^3/uL (0.0-0.2) 09/11/17 05:05 Baso # 0.1 X10^3/uL (0.0-0.1) 09/11/17 05:05 Absolute Nucleated RBC 0.0 /100WBC 09/11/17 05:05 Plt Morphology Comment Normal (NORMAL) 09/04/17 17:17 RBC Morphology Abnormal (NORMAL) A 09/04/17 17:17 Hypochromasia Slight A 09/04/17 17:17 Anisocytosis Slight A 09/04/17 17:17 ESR 87 MM/HOUR (0-20) H 09/06/17 05:00 INR Target Range - 09/04/17 17:17 INR 1.21 (0.8-1.3) 09/04/17 17:17 PTT 37.2 SECONDS (22.9-36.5) H 09/04/17 17:17 PTT Comment - 09/04/17 17:17 D-Dimer 2060 ng/mL (0-400) H* 09/04/17 17:17 Sodium 139 mmol/L (136-145) 09/11/17 05:05 Corrected Sodium 139 mmol/L (136-145) 09/11/17 05:05 Potassium 4.1 mmol/L (3.5-5.1) 09/11/17 05:05 Chloride 103 mmol/L (98-107) 09/11/17 05:05 Carbon Dioxide 28.1 mmol/L (21-32) 09/11/17 05:05 BUN 12 mg/dL (7-18) 09/11/17 05:05 Creatinine 0.84 mg/dL (0.55-1.02) 09/11/17 05:05 Est GFR (MDRD) Af Amer > 60 (>60) 09/11/17 05:05 Est GFR (MDRD) Non-Af > 60 (>60) 09/11/17 05:05 Glucose 118 mg/dL (65-99) H 09/11/17 05:05 POC Glucose (mg/dL) 154 mg/dL (65-99) H 09/06/17 11:54 Uric Acid 3.0 mg/dL (2.6-6.0) 09/06/17 05:00 Calcium 7.9 mg/dL (8.5-10.1) L 09/11/17 05:05 Corrected Calcium 9.6 mg/dL (8.5-10.1) 09/11/17 05:05 Magnesium 2.1 mg/dL (1.7-2.9) 09/04/17 17:17 Iron 28 ug/dL (50-175) L 09/04/17 17:17 Transferrin 207 mg/dL (202-364) 09/04/17 17:17 Ferritin 55 ng/mL (8-252) 09/04/17 17:17 Total Bilirubin 0.10 mg/dL (0.2-1.0) L 09/11/17 05:05 AST 15 Units/L (15-37) 09/11/17 05:05 ALT 17 Units/L (12-78) 09/11/17 05:05 Alkaline Phosphatase 50 Units/L (46-116) 09/11/17 05:05 Creatine Kinase 41 Units/L (26-192) 09/05/17 05:15 CK-MB (CK-2) < 1.0 ng/mL (0-4.0) 09/05/17 05:15 CK/CKMB % Calc 2.4 % (<4) 09/05/17 05:15 Troponin I < 0.02 ng/mL (0-1.5) 09/05/17 05:15 C-Reactive Protein 53.40 mg/L (0-3.0) H 09/06/17 05:00 Total Protein 6.2 g/dL (6.4-8.2) L 09/11/17 05:05 Albumin 1.9 g/dL (3.4-5.0) L 09/11/17 05:05 Globulin 4.3 g/dL (2.5-4.5) 09/11/17 05:05 Albumin/Globulin Ratio 0.4 Ratio (1.1-2.1) L 09/11/17 05:05 Vitamin B12 382 pg/mL (193-986) 09/04/17 17:17 Folate 15.4 ng/mL (>8.6) 09/04/17 17:17 Stool Description 5 g unformed 09/11/17 00:39 Stl Occult Blood (IFOB) Positive (NEGATIVE) A 09/11/17 00:39 Stool for White Cells Negative (NEGATIVE) 09/05/17 17:58 Stl C. diff Tox B Gene Negative (NEGATIVE) 09/05/17 17:58 Stl C. diff [id number] Negative (NEGATIVE) 09/05/17 17:58 Cryptosporid parvum Ag Negative (NEGATIVE) 09/05/17 17:58 E. histolytica Antigen Negative (NEGATIVE) 09/05/17 17:58 Giardia lamblia Ag Negative (NEGATIVE) 09/05/17 17:58 Blood Type A POSITIVE 09/04/17 18:15 Antibody Screen Negative 09/04/17 18:15 Crossmatch See Detail 09/04/17 18:15 - Plan (1) Anemia Status: Acute Qualifiers: Anemia type: iron deficiency Iron deficiency anemia type: chronic blood loss Qualified Code(s): D50.0 - Iron deficiency anemia secondary to blood loss (chronic) Plan: CONSULT GI, TRANSFUSE TWO UNITS PACKED RED BLOOD CELLS IF HGB FALLS BELOW 8, MONITOR H&H Q12H, 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 (2) Chest pain Status: Resolved Qualifiers: Chest pain type: chest pain on breathing Qualified Code(s): R07.1 - Chest pain on breathing; R07.81 - Pleurodynia Plan: TELEMETRY, SUPPLEMENTAL OXYGEN, 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 (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
--- NOTE | 2017-09-11 17:36 | DR.CONSULT ---
Consult - Consultation for Day of: Date: 09/11/17 - Chief Complaint Chief Complaint: Patient referred for Hemoccult positive and anemia. Patient with complaints of nausea, constipation, and melena. - Allergies Allergies/Adverse Reactions: Allergies Allergy/AdvReac Type Severity Reaction Status Date / Time No Known Drug Allergies Allergy Verified 09/04/17 17:08 - History of Present Illness History of Present Illness: Patient is a 82yo famle who was referred for Hemoccult positive stool and anemia. Patient with complaints of nausea, constipation and melena x1 week. Patient denies dysphagia, dyspepsia, vomiting, abdominal pain, diarrhea and hematochezia. Patient states she has never had a colonoscopy or EGD. Patikeylan presented with a Hgb of 7.2 was given 2 untis of PRBC and hgb came up to 11.0 and now is down to 9.0. - Past Medical History Past Medical History: Asthma, COPD, Coronary Artery Disease, Dyslipidemia, Hypertension, [place] Additional Medical History: Breast and uterine cancer - Past Surgical History Surgical History: Cholecystectomy, Hysterectomy, Mastectomy - Family History Family Medical History: Diabetes Mellitus - Social History Does patient currently use any type of tobacco product: Yes Have you used tobacco products in the last 12 months: Yes Type of Tobacco Use: Cigarettes How many years tobacco product used: 20 Does any household member use tobacco: Yes Alcohol Use: None Drug Use: None - Medications Home Medications: Amiodarone HCl [CORDARONE tab 200 mg *] 200 mg PO DAILY 09/04/17 [History Confirmed 09/04/17] Apixaban [Eliquis] 2.5 mg PO BID 09/04/17 [History Confirmed 09/04/17] Budesonide 0.25 mg IH BID 09/04/17 [History Confirmed 09/04/17] Clopidogrel Bisulfate [PLAVIX TAB 75 MG *] 75 mg PO DAILY 09/04/17 [History Confirmed 09/04/17] Ferrous Sulfate 325 mg PO DAILY 09/04/17 [History Confirmed 09/04/17] Ipratropium [place] Neb [ATROVENT NEBULE 0.02% *] 1 inh INH QID 09/04/17 [ History Confirmed 09/04/17] Quetiapine Fumarate 25 mg PO BID 09/04/17 [History Confirmed 09/04/17] Ropinirole HCl 1 mg PO TID 09/04/17 [History Confirmed 09/04/17] Tramadol HCl [ULTRAM 50 MG *] 50 mg PO QID 09/04/17 [History Confirmed 09/04/17] - Review of Systems Constitutional: No Symptoms Reported Eyes: No Symptoms Reported ENT: No Symptoms Reported Respiratory: No Symptoms Reported Cardiovascular: No Symptoms Reported Gastrointestinal: See HPI, Nausea, Constipation, Melena (x1week) Genitourinary: No Symptoms Reported Musculoskeletal: No Symptoms Reported Skin: No Symptoms Reported Neurological: No Symptoms Reported - Physical Exam Vital Signs: Temperature 98.2 F Pulse Rate [Apical] 70 Pulse Rate 72 Respiratory Rate 20 Blood Pressure [Left Arm] 168/71 Blood Pressure [Right Calf] 142/51 Blood Pressure [Right Arm] 168/70 Blood Pressure 161/65 O2 Sat by Pulse Oximetry 95 Oriented: Normal Eyes: Normal Ear: Normal Nose: Normal Throat: Normal Respiratory: Clear Throughout Cardiovascular: Normal : Normal Auscultation: Bowel Sounds: Normal Palpation: Normal Tenderness: Normal Skin: Normal Musculoskeletal: Normal Psychiatric: Normal Mood Description: Calm Affect: Normal Speech Pattern: Clear, Appropriate - Plan Plan: Assessment. 1. Anemia, GI Bleed r/o Upper GI Bleed, gastric ulcer, gastric adenocarcinoma. Plan. 1. Cont Protonix IV, Monitor Hgb, Transfuse as needed EGD in am, hold eliquis and continue plavix
[2017-09-11] MEDS: NEURONTIN CAP 300 MG PO SCH (20:12)
[2017-09-11] MEDS: MIRALAX POWDER (1 DOSE 17GM) PO SCH (20:13)
[2017-09-12] MEDS: REQUIP PO SCH ×3 (05:23→21:37)
[2017-09-12 05:37] LABS: BASOPHILS # (AUTO) 0.1 X10^3/uL (0.0-0.1); BASOPHILS % (AUTO) 1.1 % (0.2-1.0); EOSINOPHILS # (AUTO) 0.1 x10^3/uL (0.0-0.2); EOSINOPHILS % (AUTO) 1.5 % (0.9-2.9); HEMATOCRIT 23.8 % (36.0-47.0); HEMOGLOBIN 8.2 g/dL (12.0-16.0); LYMPHOCYTES # (AUTO) 1.1 X10^3/uL (1.3-2.9); MEAN CORPUSCULAR HEMOGLOBIN 28.2 pg (27.0-34.0); MEAN CORPUSCULAR HGB CONC 34.6 g/dL (33.0-35.0); MEAN CORPUSCULAR VOLUME 81.6 fL (80.0-100.0); MEAN PLATELET VOLUME 8.3 fL (7.4-11.0); MONOCYTES % (AUTO) 14.3 % (0.0-13.0); NEUTROPHILS # (AUTO) 4.8 x10^3/uL (2.2-4.8); NEUTROPHILS % (AUTO) 67.1 % (42.0-75.0); PLATELET COUNT 353 X10^3/uL (150.0-450.0); RED BLOOD COUNT 2.92 X10^6/uL (3.5-5.4); RED CELL DISTRIBUTION WIDTH 16.1 % (11.6-16.5); WHITE BLOOD COUNT 7.1 X10^3/uL (3.6-10.0)
[2017-09-12 05:55] LABS: ALANINE AMINOTRANSFERASE 15 Units/L (12-78); ALBUMIN 1.8 g/dL (3.4-5.0); ALKALINE PHOSPHATASE 50 Units/L (46-116); ASPARTATE AMINO TRANSFERASE 13 Units/L (15-37); BLOOD UREA NITROGEN 11 mg/dL (7-18); CALCIUM 7.7 mg/dL (8.5-10.1); CARBON DIOXIDE 29.8 mmol/L (21-32); CHLORIDE 102 mmol/L (98-107); COR CA(FOR HYPOALB) 9.5 mg/dL (8.5-10.1); CREATININE 0.76 mg/dL (0.55-1.02); SODIUM 138 mmol/L (136-145); TOTAL PROTEIN 5.9 g/dL (6.4-8.2); eGFR BLACK RACES > 60 (>60); eGFR NON BLACK RACES > 60 (>60)
[2017-09-12] MEDS: Atrovent NEB TX 0.02% IN SCH ×4 (09:00→20:58)
[2017-09-12] MEDS: PULMICORT NEB TX 0.5 MG NEB SCH ×2 (09:00→20:58)
[2017-09-12] MEDS: SINGULAIR TAB 10 MG PO SCH (09:10)
[2017-09-12] MEDS: ARICEPT TAB 10 MG PO SCH (09:10)
[2017-09-12] MEDS: PRAVACHOL PO SCH (09:10)
[2017-09-12] MEDS: CORDARONE TAB 200 MG PO SCH (09:10)
[2017-09-12] MEDS: PEPCID TAB 20 MG PO SCH ×2 (09:13→21:37)
[2017-09-12] MEDS: ULTRAM PO SCH ×4 (09:13→21:49)
[2017-09-12] MEDS: FERROUS GLUCONATE PO SCH (09:13)
[2017-09-12] MEDS: CYMBALTA PO SCH (09:13)
[2017-09-12] MEDS: NAMENDA TAB 10 MG PO SCH ×2 (09:14→21:46)
[2017-09-12] MEDS: PROTONIX INJ 40 MG VIAL IVP SCH ×2 (09:21→21:37)
[2017-09-12] MEDS ORDERED: PHARMACY CONSULT - TPN XX SCH (10:00)
[2017-09-12] MEDS: MILK OF MAGNESIA PO SCH ×4 (10:23→21:38)
[2017-09-12] MEDS: PLAVIX PO SCH (10:24)
[2017-09-12] MEDS: ALBUMIN HUMAN 25%- 100ML 100 ML IV SCH (11:05)
[2017-09-12] MEDS: NS 1000 ML 1,000 ML IV SCH ×2 (11:06→13:01)
[2017-09-12] MEDS: CLINIMIX 4.25 %/10 % 1,000 ML with MVI INJ (ADULT) 10 ML, TRACE ELEMENTS INJ 10 ML, DRU... IV SCH ×4 (12:03)
[2017-09-12] MEDS ORDERED: DEXTROSE 10% 1,000 ML IV PRN (12:12)
[2017-09-12] MEDS ORDERED: HumuLIN R SUBCUT PRN (12:12)
[2017-09-12] MEDS ORDERED: DIPRIVAN VIAL 20 ML ONE (13:03)
[2017-09-12 13:23] LABS: MAGNESIUM 2.2 mg/dL (1.7-2.9); PHOSPHORUS 4.2 mg/dL (2.6-4.7)
[2017-09-12] MEDS ORDERED: VALIUM INJ IVP PRN (19:48)
[2017-09-12] MEDS ORDERED: VALIUM ONE (20:05)
[2017-09-12] MEDS ORDERED: VALIUM PO PRN (20:10)
[2017-09-12] MEDS: NEURONTIN CAP 300 MG PO SCH (21:37)
[2017-09-12] MEDS: MIRALAX POWDER (1 DOSE 17GM) PO SCH (21:39)
--- NOTE | 2017-09-12 22:31 | RAD ---
HISTORY: Dyspnea Study: Single view chest Comparison: CT 09/04/2017 Findings: Pulmonary vascular congestion with bilateral pleural effusions noted. Mild cardiomegaly. No pneumotho rax identified. There are chronic degenerative changes of the bony thorax. IMPRESSION: 1. Cardiomegaly with pulmonary vascular congestion and bilateral effusions. Reported By:
[2017-09-13] MEDS: CLINIMIX 4.25 %/10 % 1,000 ML with MVI INJ (ADULT) 10 ML, TRACE ELEMENTS INJ 10 ML, DRU... IV SCH ×12 (00:13→17:32)
[2017-09-13] MEDS ORDERED: DRUG FILTER EXTENSION SET ONE (02:08)
[2017-09-13] MEDS: NS 1000 ML 1,000 ML IV SCH ×3 (02:17→18:18)
[2017-09-13] MEDS: REQUIP PO SCH ×3 (05:02→21:11)
[2017-09-13 06:09] LABS: BASOPHILS # (AUTO) 0.1 X10^3/uL (0.0-0.1); BASOPHILS % (AUTO) 0.6 % (0.2-1.0); EOSINOPHILS % (AUTO) 0.1 % (0.9-2.9); HEMATOCRIT 24.1 % (36.0-47.0); HEMOGLOBIN 8.4 g/dL (12.0-16.0); LYMPHOCYTES # (AUTO) 1.3 X10^3/uL (1.3-2.9); LYMPHOCYTES % (AUTO) 13.1 % (21.0-51.0); MEAN CORPUSCULAR HEMOGLOBIN 28.1 pg (27.0-34.0); MEAN CORPUSCULAR HGB CONC 34.8 g/dL (33.0-35.0); MEAN CORPUSCULAR VOLUME 80.9 fL (80.0-100.0); MEAN PLATELET VOLUME 8.4 fL (7.4-11.0); MONOCYTES % (AUTO) 10.3 % (0.0-13.0); NEUTROPHILS # (AUTO) 7.2 x10^3/uL (2.2-4.8); NEUTROPHILS % (AUTO) 75.9 % (42.0-75.0); PLATELET COUNT 348 X10^3/uL (150.0-450.0); RED BLOOD COUNT 2.98 X10^6/uL (3.5-5.4); RED CELL DISTRIBUTION WIDTH 16.2 % (11.6-16.5); WHITE BLOOD COUNT 9.5 X10^3/uL (3.6-10.0)
[2017-09-13 06:16] LABS: PREALBUMIN 9.6 mg/dL (18-35.7)
[2017-09-13 06:28] LABS: ALANINE AMINOTRANSFERASE 20 Units/L (12-78); ALBUMIN 2.3 g/dL (3.4-5.0); ALKALINE PHOSPHATASE 58 Units/L (46-116); ASPARTATE AMINO TRANSFERASE 16 Units/L (15-37); BLOOD UREA NITROGEN 20 mg/dL (7-18); CALCIUM 7.8 mg/dL (8.5-10.1); CARBON DIOXIDE 27.1 mmol/L (21-32); CHLORIDE 99 mmol/L (98-107); COR CA(FOR HYPOALB) 9.2 mg/dL (8.5-10.1); COR NA(FOR HYPERGLY) 136 mmol/L (136-145); CREATININE 0.82 mg/dL (0.55-1.02); SODIUM 134 mmol/L (136-145); TOTAL PROTEIN 6.2 g/dL (6.4-8.2); eGFR BLACK RACES > 60 (>60); eGFR NON BLACK RACES > 60 (>60)
[2017-09-13] MEDS: Atrovent NEB TX 0.02% IN SCH ×3 (08:27→18:32)
[2017-09-13] MEDS: PULMICORT NEB TX 0.5 MG NEB SCH (08:27)
[2017-09-13] MEDS: ALBUMIN HUMAN 25%- 100ML 100 ML IV SCH (09:00)
[2017-09-13] MEDS: CORDARONE TAB 200 MG PO SCH (09:04)
[2017-09-13] MEDS: MILK OF MAGNESIA PO SCH ×4 (09:05→21:08)
[2017-09-13] MEDS: PRAVACHOL PO SCH (09:06)
[2017-09-13] MEDS: CYMBALTA PO SCH (09:07)
[2017-09-13] MEDS: ULTRAM PO SCH ×4 (09:07→21:10)
[2017-09-13] MEDS: NAMENDA TAB 10 MG PO SCH ×2 (09:07→21:09)
[2017-09-13] MEDS: ARICEPT TAB 10 MG PO SCH (09:07)
[2017-09-13] MEDS: PROTONIX INJ 40 MG VIAL IVP SCH ×2 (09:07→21:07)
[2017-09-13] MEDS: PEPCID TAB 20 MG PO SCH ×2 (09:07→21:08)
[2017-09-13] MEDS: SINGULAIR TAB 10 MG PO SCH (09:08)
[2017-09-13] MEDS: FERROUS GLUCONATE PO SCH (09:08)
[2017-09-13] MEDS: LASIX IVP SCH ×2 (11:44→21:09)
[2017-09-13] MEDS ORDERED: MIRALAX POWDER (255 GM BTL) PO NR (14:00)
--- NOTE | 2017-09-13 16:20 | PCM.PROG ---
Progress Note - Progress Note for Day of Date: 09/10/17 - Subjective Subjective: IS BEING TREATED FOR ANEMIA, GI BLEED, AND REACTIVE ARTHRITIS OF BILATERAL FEET. TODAY, SHE IS ALERT AND ORIENTED, LYING IN BED ON MORNING ROUNDS. SHE CONTINUES WITH COMPLAINTS OF GENERALIZED WEAKNESS AND CONTINUES WITH PAIN, ERYTHEMA, AND EDEMA TO BILATERAL FEET. PATIENT ALSO REPORTS FEELINGS OF DEPRESSION AND STATES THAT HER RECENTLY . ON EXAMINATION, HEART IS REGULAR IN RATE AND RHYTHM. BILATERAL LUNGS ARE NOTED WITH DIMINISHED BREATH SOUNDS THROUGHOUT. ABDOMEN IS ROUND, SOFT, AND NOTED WITH MILD, DIFFUSE ABDOMINAL PAIN ON PALPATION. NORMAL BOWEL SOUNDS ARE NOTED IN ALL QUADRANTS. BILATERAL FEET/ANKLE ARE CONTINUE WITH ERYTHEMA AND EDEMA. THERE IS NORMAL RANGE OF MOTION NOTED TO ALL EXTREMITIES. HER VITALS THIS MORNING ARE 98.7-72-18-93%-96/50. LABS WERE OBTAINED. HGB 8.7, HCT 25.6. OTHERWISE, SHE IS HEMODYNAMICALLY STABLE. WE ARE AWAITING GASTROENTEROLOGY TO CONSULT WITH PATIENT, SHE CONTINUES TO HAVE DARK, TARRY STOOLS. WE WILL START DULOXETINE 30MG PO DAILY TODAY. OTHERWISE, WE WILL 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 H& H AND TRANSFUSE ADDITIONAL UNITS OF PRBC IF HEMOGLOBIN FALLS BELOW 8 g/dL. WE PLAN TO FOLLOW UP WITH AM LABS AND 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 PATIENT. - Past Medical Family Social History Past Med/Fam/Surg Hx: No changes since H&P Allergies: Allergies No Known Drug Allergies Allergy (Verified 09/04/17 17:08) - Review of Systems ROS: No change since H&P - Vital Signs and I&O's Vital Signs: Temperature 98.1 F Pulse Rate [Apical] 80 Pulse Rate 79 Respiratory Rate 20 Blood Pressure [Left Arm] 187/76 Blood Pressure [Right Calf] 142/51 Blood Pressure [Right Arm] 168/70 Blood Pressure 161/65 O2 Sat by Pulse Oximetry 90 Intake and Output: Intake & Output 09/11/17 09/12/17 09/13/17 09/14/17 11:59 11:59 11:59 11:59 Intake Total 920 905 820 320 Output Total 600 Balance 920 905 820 -280 - Physical Exam Oriented: Normal Eyes: Normal Ear: Normal Nose: Normal Throat: Normal Respiratory: Diminished Cardiovascular: Normal : Normal Auscultation: Bowel Sounds: Normal Palpation: Normal Tenderness: Normal Skin: Normal Musculoskeletal: Normal Psychiatric: Normal Mood Description: Calm Affect: Normal Speech Pattern: Clear, Appropriate - Laboratory and Diagnostics Result Diagrams: 09/13/17 05:28 09/13/17 05:28 Labs: 09/06/17 05:40 Blood Blood Culture - Final 09/06/17 05:00 Blood Blood Culture - Final 09/05/17 17:58 Stool Stool Culture - Final 09/05/17 17:58 Stool - Final Laboratory WBC 9.5 X10^3/uL (3.6-10.0) 09/13/17 05:28 RBC 2.98 X10^6/uL (3.5-5.4) L 09/13/17 05:28 Hgb 8.4 g/dL (12.0-16.0) L 09/13/17 05:28 Hct 24.1 % (36.0-47.0) L 09/13/17 05:28 MCV 80.9 fL (80.0-100.0) 09/13/17 05:28 MCH 28.1 pg (27.0-34.0) 09/13/17 05:28 MCHC 34.8 g/dL (33.0-35.0) 09/13/17 05:28 RDW 16.2 % (11.6-16.5) 09/13/17 05:28 Plt Count 348 X10^3/uL (150.0-450.0) 09/13/17 05:28 Plt Count Comment Adequate (ADEQUATE) 09/04/17 17:17 MPV 8.4 fL (7.4-11.0) 09/13/17 05:28 Neut % 75.9 % (42.0-75.0) H 09/13/17 05:28 Lymph % 13.1 % (21.0-51.0) L 09/13/17 05:28 [place] % 10.3 % (0.0-13.0) 09/13/17 05:28 Eos % 0.1 % (0.9-2.9) L 09/13/17 05:28 Baso % 0.6 % (0.2-1.0) 09/13/17 05:28 Neut # 7.2 x10^3/uL (2.2-4.8) H 09/13/17 05:28 Lymph # 1.3 X10^3/uL (1.3-2.9) 09/13/17 05:28 [place] # 1.0 x10^3/uL (0.3-0.8) H 09/13/17 05:28 Eos # 0.0 x10^3/uL (0.0-0.2) 09/13/17 05:28 Baso # 0.1 X10^3/uL (0.0-0.1) 09/13/17 05:28 Absolute Nucleated RBC 0.0 /100WBC 09/13/17 05:28 Plt Morphology Comment Normal (NORMAL) 09/04/17 17:17 RBC Morphology Abnormal (NORMAL) A 09/04/17 17:17 Hypochromasia Slight A 09/04/17 17:17 Anisocytosis Slight A 09/04/17 17:17 ESR 87 MM/HOUR (0-20) H 09/06/17 05:00 INR Target Range - 09/04/17 17:17 INR 1.21 (0.8-1.3) 09/04/17 17:17 PTT 37.2 SECONDS (22.9-36.5) H 09/04/17 17:17 PTT Comment - 09/04/17 17:17 D-Dimer 2060 ng/mL (0-400) H* 09/04/17 17:17 Sodium 134 mmol/L (136-145) L 09/13/17 05:28 Corrected Sodium 136 mmol/L (136-145) 09/13/17 05:28 Potassium 4.0 mmol/L (3.5-5.1) 09/13/17 05:28 Chloride 99 mmol/L (98-107) 09/13/17 05:28 Carbon Dioxide 27.1 mmol/L (21-32) 09/13/17 05:28 BUN 20 mg/dL (7-18) H 09/13/17 05:28 Creatinine 0.82 mg/dL (0.55-1.02) 09/13/17 05:28 Est GFR (MDRD) Af Amer > 60 (>60) 09/13/17 05:28 Est GFR (MDRD) Non-Af > 60 (>60) 09/13/17 05:28 Glucose 167 mg/dL (65-99) H 09/13/17 05:28 POC Glucose (mg/dL) 151 mg/dL (65-99) H 09/13/17 11:12 Uric Acid 3.0 mg/dL (2.6-6.0) 09/06/17 05:00 Calcium 7.8 mg/dL (8.5-10.1) L 09/13/17 05:28 Corrected Calcium 9.2 mg/dL (8.5-10.1) 09/13/17 05:28 Phosphorus 4.2 mg/dL (2.6-4.7) 09/12/17 12:52 Magnesium 2.2 mg/dL (1.7-2.9) 09/12/17 12:52 Iron 28 ug/dL (50-175) L 09/04/17 17:17 Transferrin 207 mg/dL (202-364) 09/04/17 17:17 Ferritin 55 ng/mL (8-252) 09/04/17 17:17 Total Bilirubin 0.20 mg/dL (0.2-1.0) 09/13/17 05:28 AST 16 Units/L (15-37) 09/13/17 05:28 ALT 20 Units/L (12-78) 09/13/17 05:28 Alkaline Phosphatase 58 Units/L (46-116) 09/13/17 05:28 Creatine Kinase 41 Units/L (26-192) 09/05/17 05:15 CK-MB (CK-2) < 1.0 ng/mL (0-4.0) 09/05/17 05:15 CK/CKMB % Calc 2.4 % (<4) 09/05/17 05:15 Troponin I < 0.02 ng/mL (0-1.5) 09/05/17 05:15 C-Reactive Protein 53.40 mg/L (0-3.0) H 09/06/17 05:00 Total Protein 6.2 g/dL (6.4-8.2) L 09/13/17 05:28 Albumin 2.3 g/dL (3.4-5.0) L 09/13/17 05:28 Globulin 3.9 g/dL (2.5-4.5) 09/13/17 05:28 Albumin/Globulin Ratio 0.6 Ratio (1.1-2.1) L 09/13/17 05:28 Prealbumin 9.6 mg/dL (18-35.7) L 09/13/17 05:28 Triglycerides 60 mg/dL (0-150) 09/12/17 12:52 Vitamin B12 382 pg/mL (193-986) 09/04/17 17:17 Folate 15.4 ng/mL (>8.6) 09/04/17 17:17 Stool Description 5 g unformed 09/11/17 00:39 Stl Occult Blood (IFOB) Positive (NEGATIVE) A 09/11/17 00:39 Stool for White Cells Negative (NEGATIVE) 09/05/17 17:58 Stl C. diff Tox B Gene Negative (NEGATIVE) 09/05/17 17:58 Stl C. diff [id number] Negative (NEGATIVE) 09/05/17 17:58 Cryptosporid parvum Ag Negative (NEGATIVE) 09/05/17 17:58 E. histolytica Antigen Negative (NEGATIVE) 09/05/17 17:58 Giardia lamblia Ag Negative (NEGATIVE) 09/05/17 17:58 Blood Type A POSITIVE 09/04/17 18:15 Antibody Screen Negative 09/04/17 18:15 Crossmatch See Detail 09/04/17 18:15 - Plan (1) Anemia Status: Acute Qualifiers: Anemia type: iron deficiency Iron deficiency anemia type: chronic blood loss Qualified Code(s): D50.0 - Iron deficiency anemia secondary to blood loss (chronic) Plan: CONSULT GI, TRANSFUSE TWO UNITS PACKED RED BLOOD CELLS IF HGB FALLS BELOW 8, MONITOR H&H Q12H, 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 (2) Chest pain Status: Resolved Qualifiers: Chest pain type: chest pain on breathing Qualified Code(s): R07.1 - Chest pain on breathing; R07.81 - Pleurodynia Plan: TELEMETRY, SUPPLEMENTAL OXYGEN, 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 (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 (4) Depression Status: Acute Qualifiers: Depression Type: major depressive disorder Major depression recurrence: recurrent Active/Remission status: currently active Major depression episode severity: moderate Qualified Code(s): F33.1 - Major depressive disorder, recurrent, moderate Plan: DULOXETINE 30MG PO DAILY, 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
[2017-09-13] MEDS ORDERED: DULCOLAX TAB EC 5 MG PO ONE (18:00)
[2017-09-13] MEDS: ZOFRAN TAB 4 MG SL PRN (19:46)
--- NOTE | 2017-09-13 20:52 | PCM.PROG ---
Progress Note - Progress Note for Day of Date: 09/11/17 - Subjective Subjective: IS BEING TREATED FOR ANEMIA, GI BLEED, AND REACTIVE ARTHRITIS OF BILATERAL FEET. TODAY, SHE IS ALERT AND ORIENTED, LYING IN BED ON MORNING ROUNDS. SHE CONTINUES WITH COMPLAINTS OF GENERALIZED WEAKNESS AND CONTINUES WITH PAIN, ERYTHEMA, AND EDEMA TO BILATERAL FEET. ON EXAMINATION, HEART IS REGULAR IN RATE AND RHYTHM. BILATERAL LUNGS ARE CONTINUE WITH DIMINISHED BREATH SOUNDS THROUGHOUT. ABDOMEN IS ROUND, SOFT, AND NOTED WITH MILD , DIFFUSE ABDOMINAL PAIN ON PALPATION. NORMAL BOWEL SOUNDS ARE NOTED IN ALL QUADRANTS. BILATERAL FEET/ANKLE ARE CONTINUE WITH ERYTHEMA AND EDEMA. THERE IS NORMAL RANGE OF MOTION NOTED TO ALL EXTREMITIES. HER VITALS THIS MORNING ARE 98.5-70-18-93%-167/67. LABS WERE OBTAINED THIS MORNING AND PATIENT REMAINS HEMODYNAMICALLY STABLE. STOOLS X 2 WERE POSITIVE FOR OCCULT BLOOD. PAITENT CONTINUES WITH DARK STOOLS. GASTROENTEROLOGY CONSULTED WITH PATIENT TODAY AND PLANS TO TAKE PATIENT TO THE OR FOR AN EGD ON MONDAY. WE ARE IN AGREEMENT WITH PLAN. OTHERWISE, WE WILL 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 H&H AND TRANSFUSE ADDITIONAL UNITS OF PRBC IF HEMOGLOBIN FALLS BELOW 8 g/dL. WE PLAN TO FOLLOW UP WITH AM LABS AND 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 PATIENT. - Past Medical Family Social History Past Med/Fam/Surg Hx: No changes since H&P Allergies: Allergies No Known Drug Allergies Allergy (Verified 09/04/17 17:08) - Review of Systems ROS: No change since H&P - Vital Signs and I&O's Vital Signs: Temperature 98.5 F Pulse Rate [Apical] 75 Pulse Rate 79 Respiratory Rate 18 Blood Pressure [Left Arm] 152/55 Blood Pressure [Right Calf] 142/51 Blood Pressure [Right Arm] 168/70 Blood Pressure 161/65 O2 Sat by Pulse Oximetry 94 Intake and Output: Intake & Output 09/11/17 09/12/17 09/13/17 09/14/17 11:59 11:59 11:59 11:59 Intake Total 920 905 820 320 Output Total 600 Balance 920 905 820 -280 - Physical Exam Oriented: Normal Eyes: Normal Ear: Normal Nose: Normal Throat: Normal Respiratory: Diminished Cardiovascular: Normal : Normal Auscultation: Bowel Sounds: Normal Palpation: Normal Tenderness: Normal Skin: Normal Musculoskeletal: Normal Psychiatric: Normal Mood Description: Calm Affect: Normal Speech Pattern: Clear, Appropriate - Laboratory and Diagnostics Result Diagrams: 09/13/17 05:28 09/13/17 05:28 Labs: 09/06/17 05:40 Blood Blood Culture - Final 09/06/17 05:00 Blood Blood Culture - Final 09/05/17 17:58 Stool Stool Culture - Final 09/05/17 17:58 Stool - Final Laboratory WBC 9.5 X10^3/uL (3.6-10.0) 09/13/17 05:28 RBC 2.98 X10^6/uL (3.5-5.4) L 09/13/17 05:28 Hgb 8.4 g/dL (12.0-16.0) L 09/13/17 05:28 Hct 24.1 % (36.0-47.0) L 09/13/17 05:28 MCV 80.9 fL (80.0-100.0) 09/13/17 05:28 MCH 28.1 pg (27.0-34.0) 09/13/17 05:28 MCHC 34.8 g/dL (33.0-35.0) 09/13/17 05:28 RDW 16.2 % (11.6-16.5) 09/13/17 05:28 Plt Count 348 X10^3/uL (150.0-450.0) 09/13/17 05:28 Plt Count Comment Adequate (ADEQUATE) 09/04/17 17:17 MPV 8.4 fL (7.4-11.0) 09/13/17 05:28 Neut % 75.9 % (42.0-75.0) H 09/13/17 05:28 Lymph % 13.1 % (21.0-51.0) L 09/13/17 05:28 [place] % 10.3 % (0.0-13.0) 09/13/17 05:28 Eos % 0.1 % (0.9-2.9) L 09/13/17 05:28 Baso % 0.6 % (0.2-1.0) 09/13/17 05:28 Neut # 7.2 x10^3/uL (2.2-4.8) H 09/13/17 05:28 Lymph # 1.3 X10^3/uL (1.3-2.9) 09/13/17 05:28 [place] # 1.0 x10^3/uL (0.3-0.8) H 09/13/17 05:28 Eos # 0.0 x10^3/uL (0.0-0.2) 09/13/17 05:28 Baso # 0.1 X10^3/uL (0.0-0.1) 09/13/17 05:28 Absolute Nucleated RBC 0.0 /100WBC 09/13/17 05:28 Plt Morphology Comment Normal (NORMAL) 09/04/17 17:17 RBC Morphology Abnormal (NORMAL) A 09/04/17 17:17 Hypochromasia Slight A 09/04/17 17:17 Anisocytosis Slight A 09/04/17 17:17 ESR 87 MM/HOUR (0-20) H 09/06/17 05:00 INR Target Range - 09/04/17 17:17 INR 1.21 (0.8-1.3) 09/04/17 17:17 PTT 37.2 SECONDS (22.9-36.5) H 09/04/17 17:17 PTT Comment - 09/04/17 17:17 D-Dimer 2060 ng/mL (0-400) H* 09/04/17 17:17 Sodium 134 mmol/L (136-145) L 09/13/17 05:28 Corrected Sodium 136 mmol/L (136-145) 09/13/17 05:28 Potassium 4.0 mmol/L (3.5-5.1) 09/13/17 05:28 Chloride 99 mmol/L (98-107) 09/13/17 05:28 Carbon Dioxide 27.1 mmol/L (21-32) 09/13/17 05:28 BUN 20 mg/dL (7-18) H 09/13/17 05:28 Creatinine 0.82 mg/dL (0.55-1.02) 09/13/17 05:28 Est GFR (MDRD) Af Amer > 60 (>60) 09/13/17 05:28 Est GFR (MDRD) Non-Af > 60 (>60) 09/13/17 05:28 Glucose 167 mg/dL (65-99) H 09/13/17 05:28 POC Glucose (mg/dL) 151 mg/dL (65-99) H 09/13/17 11:12 Uric Acid 3.0 mg/dL (2.6-6.0) 09/06/17 05:00 Calcium 7.8 mg/dL (8.5-10.1) L 09/13/17 05:28 Corrected Calcium 9.2 mg/dL (8.5-10.1) 09/13/17 05:28 Phosphorus 4.2 mg/dL (2.6-4.7) 09/12/17 12:52 Magnesium 2.2 mg/dL (1.7-2.9) 09/12/17 12:52 Iron 28 ug/dL (50-175) L 09/04/17 17:17 Transferrin 207 mg/dL (202-364) 09/04/17 17:17 Ferritin 55 ng/mL (8-252) 09/04/17 17:17 Total Bilirubin 0.20 mg/dL (0.2-1.0) 09/13/17 05:28 AST 16 Units/L (15-37) 09/13/17 05:28 ALT 20 Units/L (12-78) 09/13/17 05:28 Alkaline Phosphatase 58 Units/L (46-116) 09/13/17 05:28 Creatine Kinase 41 Units/L (26-192) 09/05/17 05:15 CK-MB (CK-2) < 1.0 ng/mL (0-4.0) 09/05/17 05:15 CK/CKMB % Calc 2.4 % (<4) 09/05/17 05:15 Troponin I < 0.02 ng/mL (0-1.5) 09/05/17 05:15 C-Reactive Protein 53.40 mg/L (0-3.0) H 09/06/17 05:00 Total Protein 6.2 g/dL (6.4-8.2) L 09/13/17 05:28 Albumin 2.3 g/dL (3.4-5.0) L 09/13/17 05:28 Globulin 3.9 g/dL (2.5-4.5) 09/13/17 05:28 Albumin/Globulin Ratio 0.6 Ratio (1.1-2.1) L 09/13/17 05:28 Prealbumin 9.6 mg/dL (18-35.7) L 09/13/17 05:28 Triglycerides 60 mg/dL (0-150) 09/12/17 12:52 Vitamin B12 382 pg/mL (193-986) 09/04/17 17:17 Folate 15.4 ng/mL (>8.6) 09/04/17 17:17 Stool Description 5 g unformed 09/11/17 00:39 Stl Occult Blood (IFOB) Positive (NEGATIVE) A 09/11/17 00:39 Stool for White Cells Negative (NEGATIVE) 09/05/17 17:58 Stl C. diff Tox B Gene Negative (NEGATIVE) 09/05/17 17:58 Stl C. diff [id number] Negative (NEGATIVE) 09/05/17 17:58 Cryptosporid parvum Ag Negative (NEGATIVE) 09/05/17 17:58 E. histolytica Antigen Negative (NEGATIVE) 09/05/17 17:58 Giardia lamblia Ag Negative (NEGATIVE) 09/05/17 17:58 Blood Type A POSITIVE 09/04/17 18:15 Antibody Screen Negative 09/04/17 18:15 Crossmatch See Detail 09/04/17 18:15 - Plan (1) Anemia Status: Acute Qualifiers: Anemia type: iron deficiency Iron deficiency anemia type: chronic blood loss Qualified Code(s): D50.0 - Iron deficiency anemia secondary to blood loss (chronic) Plan: EGD ON MONDAY, TRANSFUSE TWO UNITS PACKED RED BLOOD CELLS IF HGB FALLS BELOW 8, MONITOR H&H Q12H, 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 (2) Chest pain Status: Resolved Qualifiers: Chest pain type: chest pain on breathing Qualified Code(s): R07.1 - Chest pain on breathing; R07.81 - Pleurodynia Plan: TELEMETRY, SUPPLEMENTAL OXYGEN, 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 (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 (4) Depression Status: Acute Qualifiers: Depression Type: major depressive disorder Major depression recurrence: recurrent Active/Remission status: currently active Major depression episode severity: moderate Qualified Code(s): F33.1 - Major depressive disorder, recurrent, moderate Plan: DULOXETINE 30MG PO DAILY, 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
[2017-09-13] MEDS: MIRALAX POWDER (1 DOSE 17GM) PO SCH (21:08)
[2017-09-13] MEDS: KLONOPIN TAB 1 MG PO SCH (21:09)
[2017-09-13] MEDS: NEURONTIN CAP 300 MG PO SCH (21:09)
[2017-09-13] MEDS ORDERED: ZOFRAN INJ 4 MG VIAL IVP PRN (22:30)
[2017-09-14] MEDS: CLINIMIX 4.25 %/10 % 1,000 ML with MVI INJ (ADULT) 10 ML, TRACE ELEMENTS INJ 10 ML, DRU... IV SCH ×8 (02:34→19:48)
[2017-09-14] MEDS: NS 1000 ML 1,000 ML IV SCH (02:35)
[2017-09-14] MEDS: PULMICORT NEB TX 0.5 MG NEB SCH ×3 (03:31→20:42)
[2017-09-14] MEDS: Atrovent NEB TX 0.02% IN SCH ×5 (03:31→20:42)
[2017-09-14 05:13] LABS: BASOPHILS # (AUTO) 0.1 X10^3/uL (0.0-0.1); EOSINOPHILS # (AUTO) 0.1 x10^3/uL (0.0-0.2); EOSINOPHILS % (AUTO) 1.5 % (0.9-2.9); HEMATOCRIT 24.9 % (36.0-47.0); HEMOGLOBIN 8.6 g/dL (12.0-16.0); LYMPHOCYTES # (AUTO) 1.5 X10^3/uL (1.3-2.9); LYMPHOCYTES % (AUTO) 21.4 % (21.0-51.0); MEAN CORPUSCULAR HEMOGLOBIN 27.9 pg (27.0-34.0); MEAN CORPUSCULAR HGB CONC 34.5 g/dL (33.0-35.0); MEAN CORPUSCULAR VOLUME 80.8 fL (80.0-100.0); MONOCYTES # (AUTO) 0.9 x10^3/uL (0.3-0.8); MONOCYTES % (AUTO) 12.8 % (0.0-13.0); NEUTROPHILS # (AUTO) 4.4 x10^3/uL (2.2-4.8); NEUTROPHILS % (AUTO) 63.3 % (42.0-75.0); PLATELET COUNT 392 X10^3/uL (150.0-450.0); RED BLOOD COUNT 3.08 X10^6/uL (3.5-5.4); RED CELL DISTRIBUTION WIDTH 15.9 % (11.6-16.5)
[2017-09-14] MEDS: REQUIP PO SCH ×3 (05:27→21:20)
[2017-09-14 05:40] LABS: ALANINE AMINOTRANSFERASE 19 Units/L (12-78); ALBUMIN 2.4 g/dL (3.4-5.0); ALKALINE PHOSPHATASE 55 Units/L (46-116); ASPARTATE AMINO TRANSFERASE 26 Units/L (15-37); BLOOD UREA NITROGEN 20 mg/dL (7-18); CALCIUM 7.7 mg/dL (8.5-10.1); CARBON DIOXIDE 28.6 mmol/L (21-32); CHLORIDE 102 mmol/L (98-107); COR NA(FOR HYPERGLY) 139 mmol/L (136-145); CREATININE 0.78 mg/dL (0.55-1.02); SODIUM 139 mmol/L (136-145); eGFR BLACK RACES > 60 (>60); eGFR NON BLACK RACES > 60 (>60)
[2017-09-14] MEDS ORDERED: K-RIDER 10 MEQ/NS 100 ML 10 MEQ/100 ML BAG IV PRN (05:56)
[2017-09-14] MEDS ORDERED: MAG-OX TAB PO PRN (05:56)
[2017-09-14] MEDS ORDERED: K-LYTE EFFERVESCENT PO PRN (05:56)
[2017-09-14] MEDS ORDERED: POTASSIUM CHLORIDE LIQ 20 MEQ UDC PO PRN (05:56)
[2017-09-14] MEDS ORDERED: POTASSIUM CHL 40 MEQ/NS 0.45% 500 ML IV PRN (05:56)
[2017-09-14] MEDS ORDERED: MAGNESIUM SULFATE 1 GM/100 mL PREMIX 1 GM/100 ML BAG IV PRN (05:56)
[2017-09-14] MEDS ORDERED: POTASSIUM CHL 60 MEQ/NS 0.45% 500 ML IV PRN (05:56)
--- NOTE | 2017-09-14 07:15 | RAD ---
History: Dyspnea Study: Portable AP chest Comparison: September 12 Findings: There is persistent vascular congestion although slightly improved. There is a tiny right a nd a larger left pleural effusion. The heart size is prominent. Impression: Congestive heart failure, slightly improved from September 12 Reported By:
[2017-09-14] MEDS: ALBUMIN HUMAN 25%- 100ML 100 ML IV SCH (09:06)
[2017-09-14] MEDS: PROTONIX INJ 40 MG VIAL IVP SCH ×2 (09:06→21:19)
[2017-09-14] MEDS: LASIX IVP SCH ×2 (09:08→21:19)
[2017-09-14] MEDS ORDERED: D5 LR 1000 ML 1,000 ML IV ONE (12:35)
[2017-09-14] MEDS ORDERED: DIPRIVAN VIAL 20 ML ONE (12:47)
[2017-09-14] MEDS: ULTRAM PO SCH ×4 (14:32→21:28)
[2017-09-14] MEDS: PRAVACHOL PO SCH (14:45)
[2017-09-14] MEDS: NAMENDA TAB 10 MG PO SCH ×2 (14:45→21:20)
[2017-09-14] MEDS: SINGULAIR TAB 10 MG PO SCH (14:45)
[2017-09-14] MEDS: PEPCID TAB 20 MG PO SCH ×2 (14:46→21:20)
[2017-09-14] MEDS: ARICEPT TAB 10 MG PO SCH (14:46)
[2017-09-14] MEDS: CORDARONE TAB 200 MG PO SCH (14:46)
[2017-09-14] MEDS: FERROUS GLUCONATE PO SCH (14:46)
[2017-09-14] MEDS: CYMBALTA PO SCH (15:00)
[2017-09-14] MEDS: MILK OF MAGNESIA PO SCH ×3 (16:50→21:21)
[2017-09-14] MEDS: KLONOPIN TAB 1 MG PO SCH (21:19)
[2017-09-14] MEDS: NEURONTIN CAP 300 MG PO SCH (21:21)
[2017-09-14] MEDS: MIRALAX POWDER (1 DOSE 17GM) PO SCH (21:27)
[2017-09-15] MEDS: CLINIMIX 4.25 %/10 % 1,000 ML with MVI INJ (ADULT) 10 ML, TRACE ELEMENTS INJ 10 ML, DRU... IV SCH ×4 (00:02)
[2017-09-15] MEDS: REQUIP PO SCH ×3 (05:36→21:40)
[2017-09-15 06:09] LABS: BASOPHILS # (AUTO) 0.1 X10^3/uL (0.0-0.1); EOSINOPHILS # (AUTO) 0.1 x10^3/uL (0.0-0.2); EOSINOPHILS % (AUTO) 1.6 % (0.9-2.9); HEMATOCRIT 25.5 % (36.0-47.0); HEMOGLOBIN 8.8 g/dL (12.0-16.0); LYMPHOCYTES # (AUTO) 1.7 X10^3/uL (1.3-2.9); LYMPHOCYTES % (AUTO) 20.4 % (21.0-51.0); MEAN CORPUSCULAR HGB CONC 34.5 g/dL (33.0-35.0); MEAN CORPUSCULAR VOLUME 81.2 fL (80.0-100.0); MEAN PLATELET VOLUME 8.2 fL (7.4-11.0); MONOCYTES % (AUTO) 11.8 % (0.0-13.0); NEUTROPHILS # (AUTO) 5.3 x10^3/uL (2.2-4.8); NEUTROPHILS % (AUTO) 65.2 % (42.0-75.0); PLATELET COUNT 423 X10^3/uL (150.0-450.0); RED BLOOD COUNT 3.14 X10^6/uL (3.5-5.4); RED CELL DISTRIBUTION WIDTH 16.4 % (11.6-16.5); WHITE BLOOD COUNT 8.1 X10^3/uL (3.6-10.0)
[2017-09-15 06:23] LABS: ALANINE AMINOTRANSFERASE 18 Units/L (12-78); ALBUMIN 2.8 g/dL (3.4-5.0); ALKALINE PHOSPHATASE 50 Units/L (46-116); ASPARTATE AMINO TRANSFERASE 12 Units/L (15-37); BLOOD UREA NITROGEN 25 mg/dL (7-18); CALCIUM 8.1 mg/dL (8.5-10.1); CARBON DIOXIDE 28.2 mmol/L (21-32); CHLORIDE 102 mmol/L (98-107); COR CA(FOR HYPOALB) 9.1 mg/dL (8.5-10.1); COR NA(FOR HYPERGLY) 139 mmol/L (136-145); CREATININE 0.96 mg/dL (0.55-1.02); SODIUM 138 mmol/L (136-145); TOTAL PROTEIN 6.2 g/dL (6.4-8.2); eGFR BLACK RACES > 60 (>60); eGFR NON BLACK RACES 59 (>60)
--- NOTE | 2017-09-15 06:43 | RAD ---
HISTORY: Chest pain, dyspnea Study: Chest AP portable Comparison: 09/14/2017 Findings: The heart remains enlarged. Pulmonary venous congestion and mild interstitial edema is present not si gnificantly changed from the prior examination. Bilateral pleural effusions are present left greater than right also unchanged. The bony thorax is unremarkable. IMPRESSION: No significant change from the prior examination Reported By:
[2017-09-15] MEDS: PULMICORT NEB TX 0.5 MG NEB SCH ×2 (08:30→20:44)
[2017-09-15] MEDS: Atrovent NEB TX 0.02% IN SCH ×4 (08:30→20:44)
[2017-09-15] MEDS: PROTONIX INJ 40 MG VIAL IVP SCH ×2 (08:57→20:52)
[2017-09-15] MEDS: PEPCID TAB 20 MG PO SCH ×2 (08:57→20:52)
[2017-09-15] MEDS: SINGULAIR TAB 10 MG PO SCH (08:57)
[2017-09-15] MEDS: LASIX IVP SCH (08:57)
[2017-09-15] MEDS: ALBUMIN HUMAN 25%- 100ML 100 ML IV SCH (08:57)
[2017-09-15] MEDS: FERROUS GLUCONATE PO SCH (08:58)
[2017-09-15] MEDS: ARICEPT TAB 10 MG PO SCH (08:58)
[2017-09-15] MEDS: PRAVACHOL PO SCH (08:58)
[2017-09-15] MEDS: ULTRAM PO SCH ×4 (08:59→20:53)
[2017-09-15] MEDS: NAMENDA TAB 10 MG PO SCH ×2 (08:59→20:51)
[2017-09-15] MEDS: MILK OF MAGNESIA PO SCH ×4 (08:59→20:51)
[2017-09-15] MEDS: CORDARONE TAB 200 MG PO SCH (09:15)
[2017-09-15] MEDS: CYMBALTA PO SCH (09:15)
[2017-09-15 12:08] LABS: MAGNESIUM 1.5 mg/dL (1.7-2.9); PHOSPHORUS 2.8 mg/dL (2.6-4.7)
[2017-09-15 15:42] LABS: BASOPHILS # (AUTO) 0.1 X10^3/uL (0.0-0.1); BASOPHILS % (AUTO) 0.9 % (0.2-1.0); EOSINOPHILS # (AUTO) 0.1 x10^3/uL (0.0-0.2); EOSINOPHILS % (AUTO) 1.5 % (0.9-2.9); HEMATOCRIT 26.8 % (36.0-47.0); HEMOGLOBIN 9.1 g/dL (12.0-16.0); LYMPHOCYTES # (AUTO) 2.1 X10^3/uL (1.3-2.9); LYMPHOCYTES % (AUTO) 22.6 % (21.0-51.0); MEAN CORPUSCULAR HEMOGLOBIN 27.4 pg (27.0-34.0); MEAN CORPUSCULAR HGB CONC 33.9 g/dL (33.0-35.0); MEAN CORPUSCULAR VOLUME 80.9 fL (80.0-100.0); MEAN PLATELET VOLUME 7.8 fL (7.4-11.0); MONOCYTES # (AUTO) 1.3 x10^3/uL (0.3-0.8); NEUTROPHILS # (AUTO) 5.6 x10^3/uL (2.2-4.8); PLATELET COUNT 428 X10^3/uL (150.0-450.0); RED BLOOD COUNT 3.31 X10^6/uL (3.5-5.4); WHITE BLOOD COUNT 9.1 X10^3/uL (3.6-10.0)
[2017-09-15] MEDS ORDERED: NS 250 ML IV 250 ML IV ONE (16:30)
[2017-09-15] MEDS: MIRALAX POWDER (1 DOSE 17GM) PO SCH (20:51)
[2017-09-15] MEDS: KLONOPIN TAB 1 MG PO SCH (20:51)
[2017-09-15] MEDS: NEURONTIN CAP 300 MG PO SCH (20:52)
[2017-09-16] MEDS: REQUIP PO SCH (05:19)
--- NOTE | 2017-09-16 05:54 | RAD ---
Chest, AP portable Indication: Shortness of breath Comparison: 09/15/2017 Findings: Cardiac silhouette is unchanged. Interstitial edema and small bilateral pleural effusions a re similar to prior. No dense infiltrates identified. Impression: No significant change from prior. Reported By:
[2017-09-16 06:13] LABS: BASOPHILS # (AUTO) 0.1 X10^3/uL (0.0-0.1); BASOPHILS % (AUTO) 1.1 % (0.2-1.0); EOSINOPHILS # (AUTO) 0.1 x10^3/uL (0.0-0.2); EOSINOPHILS % (AUTO) 1.1 % (0.9-2.9); HEMATOCRIT 24.9 % (36.0-47.0); HEMOGLOBIN 8.7 g/dL (12.0-16.0); LYMPHOCYTES # (AUTO) 1.6 X10^3/uL (1.3-2.9); LYMPHOCYTES % (AUTO) 18.2 % (21.0-51.0); MEAN CORPUSCULAR HEMOGLOBIN 27.9 pg (27.0-34.0); MEAN CORPUSCULAR HGB CONC 34.8 g/dL (33.0-35.0); MEAN PLATELET VOLUME 8.4 fL (7.4-11.0); MONOCYTES % (AUTO) 12.1 % (0.0-13.0); NEUTROPHILS # (AUTO) 5.8 x10^3/uL (2.2-4.8); NEUTROPHILS % (AUTO) 67.5 % (42.0-75.0); PLATELET COUNT 444 X10^3/uL (150.0-450.0); RED BLOOD COUNT 3.11 X10^6/uL (3.5-5.4); RED CELL DISTRIBUTION WIDTH 16.2 % (11.6-16.5); WHITE BLOOD COUNT 8.5 X10^3/uL (3.6-10.0)
[2017-09-16 06:18] LABS: BLOOD UREA NITROGEN 22 mg/dL (7-18); CALCIUM 8.4 mg/dL (8.5-10.1); CHLORIDE 105 mmol/L (98-107); CREATININE 0.97 mg/dL (0.55-1.02); SODIUM 141 mmol/L (136-145); eGFR BLACK RACES > 60 (>60); eGFR NON BLACK RACES 59 (>60)
[2017-09-16] MEDS: Atrovent NEB TX 0.02% IN SCH (08:38)
[2017-09-16] MEDS: PULMICORT NEB TX 0.5 MG NEB SCH (08:38)
[2017-09-16] MEDS: ALBUMIN HUMAN 25%- 100ML 100 ML IV SCH (09:16)
[2017-09-16] MEDS: MILK OF MAGNESIA PO SCH (09:21)
[2017-09-16] MEDS: PROTONIX INJ 40 MG VIAL IVP SCH (09:22)
[2017-09-16] MEDS: PRAVACHOL PO SCH (09:22)
[2017-09-16] MEDS: NAMENDA TAB 10 MG PO SCH (09:22)
[2017-09-16] MEDS: ULTRAM PO SCH (09:22)
[2017-09-16] MEDS: PEPCID TAB 20 MG PO SCH (09:22)
[2017-09-16] MEDS: FERROUS GLUCONATE PO SCH (09:23)
[2017-09-16] MEDS: SINGULAIR TAB 10 MG PO SCH (09:23)
[2017-09-16] MEDS: CORDARONE TAB 200 MG PO SCH (09:25)
[2017-09-16] MEDS: CYMBALTA PO SCH (09:27)
[2017-09-16] MEDS: ARICEPT TAB 10 MG PO SCH (09:27)
[2017-09-16 14:03] VITALS: BP 142/63
--- NOTE | 2017-09-23 10:38 | PCM.PROG ---
Progress Note - Progress Note for Day of Date: 09/03/17 - Subjective Subjective: IS BEING TREATED FOR ANEMIA, GI BLEED, AND REACTIVE ARTHRITIS OF BILATERAL FEET. TODAY, SHE IS ALERT AND ORIENTED, SHE CONTINUES WITH COMPLAINTS OF GENERALIZED WEAKNESS AND CONTINUES WITH PAIN, ERYTHEMA, AND EDEMA TO BILATERAL FEET. NO NEW COMPLAINTS. - Past Medical Family Social History Past Med/Fam/Surg Hx: No changes since H&P Allergies: Allergies No Known Drug Allergies Allergy (Verified 09/17/17 16:26) - Review of Systems ROS: No change since H&P - Vital Signs and I&O's Vital Signs: Temperature 99.5 F Pulse Rate [Left Brachial] 78 Pulse Rate [Right Brachial] 75 Pulse Rate [Apical] 65 Pulse Rate 84 Respiratory Rate 18 Blood Pressure [Left Arm] 142/63 Blood Pressure [Right Calf] 142/51 Blood Pressure [Right Arm] 74/56 Blood Pressure 161/65 O2 Sat by Pulse Oximetry 96 - Physical Exam Oriented: Normal Eyes: Normal Ear: Normal Nose: Normal Throat: Normal Respiratory: Diminished Cardiovascular: Normal : Normal Auscultation: Bowel Sounds: Normal Tenderness: Normal Skin: Normal Musculoskeletal: Foot, Swelling, Tender Psychiatric: Normal Mood Description: Calm Affect: Normal Speech Pattern: Clear, Appropriate - Laboratory and Diagnostics Result Diagrams: 09/16/17 05:10 09/16/17 05:10 Labs: 09/06/17 05:40 Blood Blood Culture - Final 09/06/17 05:00 Blood Blood Culture - Final 09/05/17 17:58 Stool Stool Culture - Final 09/05/17 17:58 Stool - Final Laboratory WBC 8.5 X10^3/uL (3.6-10.0) 09/16/17 05:10 RBC 3.11 X10^6/uL (3.5-5.4) L 09/16/17 05:10 Hgb 8.7 g/dL (12.0-16.0) L 09/16/17 05:10 Hct 24.9 % (36.0-47.0) L 09/16/17 05:10 MCV 80.0 fL (80.0-100.0) 09/16/17 05:10 MCH 27.9 pg (27.0-34.0) 09/16/17 05:10 MCHC 34.8 g/dL (33.0-35.0) 09/16/17 05:10 RDW 16.2 % (11.6-16.5) 09/16/17 05:10 Plt Count 444 X10^3/uL (150.0-450.0) 09/16/17 05:10 Plt Count Comment Adequate (ADEQUATE) 09/04/17 17:17 MPV 8.4 fL (7.4-11.0) 09/16/17 05:10 Neut % 67.5 % (42.0-75.0) 09/16/17 05:10 Lymph % 18.2 % (21.0-51.0) L 09/16/17 05:10 [place] % 12.1 % (0.0-13.0) 09/16/17 05:10 Eos % 1.1 % (0.9-2.9) 09/16/17 05:10 Baso % 1.1 % (0.2-1.0) H 09/16/17 05:10 Neut # 5.8 x10^3/uL (2.2-4.8) H 09/16/17 05:10 Lymph # 1.6 X10^3/uL (1.3-2.9) 09/16/17 05:10 [place] # 1.0 x10^3/uL (0.3-0.8) H 09/16/17 05:10 Eos # 0.1 x10^3/uL (0.0-0.2) 09/16/17 05:10 Baso # 0.1 X10^3/uL (0.0-0.1) 09/16/17 05:10 Absolute Nucleated RBC 0.0 /100WBC 09/16/17 05:10 Plt Morphology Comment Normal (NORMAL) 09/04/17 17:17 RBC Morphology Abnormal (NORMAL) A 09/04/17 17:17 Hypochromasia Slight A 09/04/17 17:17 Anisocytosis Slight A 09/04/17 17:17 ESR 87 MM/HOUR (0-20) H 09/06/17 05:00 INR Target Range - 09/04/17 17:17 INR 1.21 (0.8-1.3) 09/04/17 17:17 PTT 37.2 SECONDS (22.9-36.5) H 09/04/17 17:17 PTT Comment - 09/04/17 17:17 D-Dimer 2060 ng/mL (0-400) H* 09/04/17 17:17 Sodium 141 mmol/L (136-145) 09/16/17 05:10 Corrected Sodium TNP 09/16/17 05:10 Potassium 3.4 mmol/L (3.5-5.1) L 09/16/17 05:10 Chloride 105 mmol/L (98-107) 09/16/17 05:10 Carbon Dioxide 26.0 mmol/L (21-32) 09/16/17 05:10 BUN 22 mg/dL (7-18) H 09/16/17 05:10 Creatinine 0.97 mg/dL (0.55-1.02) 09/16/17 05:10 Est GFR (MDRD) Af Amer > 60 (>60) 09/16/17 05:10 Est GFR (MDRD) Non-Af 59 (>60) 09/16/17 05:10 Glucose 92 mg/dL (65-99) 09/16/17 05:10 POC Glucose (mg/dL) 124 mg/dL (65-99) H 09/15/17 12:11 Uric Acid 3.0 mg/dL (2.6-6.0) 09/06/17 05:00 Calcium 8.4 mg/dL (8.5-10.1) L 09/16/17 05:10 Corrected Calcium 9.1 mg/dL (8.5-10.1) 09/15/17 05:35 Phosphorus 2.8 mg/dL (2.6-4.7) 09/15/17 11:45 Magnesium 1.5 mg/dL (1.7-2.9) L 09/15/17 11:45 Iron 28 ug/dL (50-175) L 09/04/17 17:17 Transferrin 207 mg/dL (202-364) 09/04/17 17:17 Ferritin 55 ng/mL (8-252) 09/04/17 17:17 Total Bilirubin 0.20 mg/dL (0.2-1.0) 09/15/17 05:35 AST 12 Units/L (15-37) L 09/15/17 05:35 ALT 18 Units/L (12-78) 09/15/17 05:35 Alkaline Phosphatase 50 Units/L (46-116) 09/15/17 05:35 Creatine Kinase 41 Units/L (26-192) 09/05/17 05:15 CK-MB (CK-2) < 1.0 ng/mL (0-4.0) 09/05/17 05:15 CK/CKMB % Calc 2.4 % (<4) 09/05/17 05:15 Troponin I < 0.02 ng/mL (0-1.5) 09/05/17 05:15 C-Reactive Protein 53.40 mg/L (0-3.0) H 09/06/17 05:00 Total Protein 6.2 g/dL (6.4-8.2) L 09/15/17 05:35 Albumin 2.8 g/dL (3.4-5.0) L 09/15/17 05:35 Globulin 3.4 g/dL (2.5-4.5) 09/15/17 05:35 Albumin/Globulin Ratio 0.8 Ratio (1.1-2.1) L 09/15/17 05:35 Prealbumin 9.6 mg/dL (18-35.7) L 09/13/17 05:28 Triglycerides 110 mg/dL (0-150) 09/15/17 11:45 Vitamin B12 382 pg/mL (193-986) 09/04/17 17:17 Folate 15.4 ng/mL (>8.6) 09/04/17 17:17 Stool Description 5 g unformed 09/11/17 00:39 Stl Occult Blood (IFOB) Positive (NEGATIVE) A 09/11/17 00:39 Stool for White Cells Negative (NEGATIVE) 09/05/17 17:58 Stl C. diff Tox B Gene Negative (NEGATIVE) 09/05/17 17:58 Stl C. diff 027-NAP1-BI Negative (NEGATIVE) 09/05/17 17:58 Cryptosporid parvum Ag Negative (NEGATIVE) 09/05/17 17:58 E. 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
== END 2017-09-16 13:50 | disposition home health service (06) | DRG 313 ==
LOC: ER 17:02 → MED/SURG 19:45
PROVIDERS: ADMIT Obstetrics & Gynecology Obstetrics; ATTEND Internal Medicine
PROC: 30233N1 Transfusion of Nonautologous Red Blood Cells into Peripheral Vein, Percutaneous Approach (ICD-10-PCS; 2017-09-04)
PROC: 30233N1 Transfusion of Nonautologous Red Blood Cells into Peripheral Vein, Percutaneous Approach (ICD-10-PCS; 2017-09-05)
PROC: 0DJ08ZZ Inspection of Upper Intestinal Tract, Via Natural or Artificial Opening Endoscopic (ICD-10-PCS; principal; 2017-09-12 13:30)
PROC: 0DJD8ZZ Inspection of Lower Intestinal Tract, Via Natural or Artificial Opening Endoscopic (ICD-10-PCS; 2017-09-14)
PROC: 0DBM8ZX Excision of Descending Colon, Via Natural or Artificial Opening Endoscopic, Diagnostic (ICD-10-PCS; 2017-09-14)
PROC: 0DBP8ZX Excision of Rectum, Via Natural or Artificial Opening Endoscopic, Diagnostic (ICD-10-PCS; 2017-09-14)
DX: R07.89 Other chest pain (principal); D50.0 Iron deficiency anemia secondary to blood loss (chronic); M79.672 Pain in left foot; M79.89 Other specified soft tissue disorders; J44.9 Chronic obstructive pulmonary disease, unspecified; R94.31 Abnormal electrocardiogram [ECG] [EKG]; R06.02 Shortness of breath; M02.372 Reiter's disease, left ankle and foot; M02.371 Reiter's disease, right ankle and foot; F33.1 Major depressive disorder, recurrent, moderate; K63.5 Polyp of colon; K21.9 Gastro-esophageal reflux disease without esophagitis; K52.89 Other specified noninfective gastroenteritis and colitis; K92.1 Melena
CPT/HCPCS: 36415; 36430; 71045; 71275; 73630; 80048; 80053; 82270; 82274; 82550; 82553; 82607; 82728; 82746; 83540; 83630; 83735; 84100; 84132; 84134; 84466; 84478; 84484; 84550; 85014; 85018; 85025; 85378; 85610; 85652; 85730; 86140; 86850; 86900; 86901; 86922; 87040; 87045; 87328; 87329; 87336; 87427; 87493; 87899; 88305; 93005; 93010; 93971; 94640; 94760; 96365; 97535; 99100; 99284; A4222; B4189; C9113; P9016; P9047; S0028; S0181; A4217; J1815; J1940; J3360; J3490; J7120; J7626; J7644

== ENCOUNTER 2017-09-17 16:12 | Emergency (ER) | payer OTHER, MEDICARE ==
[2017-09-17 16:26] VITALS: BMI 23.4
[2017-09-17] MEDS ORDERED: NS 1000 ML 1,000 ML IV ONE (16:26)
[2017-09-17] MEDS ORDERED: NS 1000 ML 1,000 ML ONE (16:27)
--- NOTE | 2017-09-17 16:41 | RAD ---
Examination: Portable AP chest History: SOB and swelling Comparison 09/16/2017 Findings: Continued normal heart size. New persistent bilateral infiltrates consistent with edema. Di ffuse increase at left base may represent pleural fluid and/or alveolar filling. No pneumothorax seen . Impression: Considering technical difference, little change since 1 day earlier. Persistent pulmonary findings of perivascular edema with probable pleural effusions. These findings may be cardiogenic or related to volume overload. Reported By:
[2017-09-17 16:46] LABS: BASOPHILS # (AUTO) 0.1 X10^3/uL (0.0-0.1); BASOPHILS % (AUTO) 0.8 % (0.2-1.0); HEMATOCRIT 24.9 % (36.0-47.0); HEMOGLOBIN 8.5 g/dL (12.0-16.0); LYMPHOCYTES # (AUTO) 1.1 X10^3/uL (1.3-2.9); LYMPHOCYTES % (AUTO) 9.3 % (21.0-51.0); MEAN CORPUSCULAR HEMOGLOBIN 27.7 pg (27.0-34.0); MEAN CORPUSCULAR HGB CONC 34.2 g/dL (33.0-35.0); MEAN PLATELET VOLUME 8.4 fL (7.4-11.0); MONOCYTES # (AUTO) 1.5 x10^3/uL (0.3-0.8); MONOCYTES % (AUTO) 12.1 % (0.0-13.0); NEUTROPHILS # (AUTO) 9.4 x10^3/uL (2.2-4.8); NEUTROPHILS % (AUTO) 77.8 % (42.0-75.0); PLATELET COUNT 407 X10^3/uL (150.0-450.0); RED BLOOD COUNT 3.07 X10^6/uL (3.5-5.4); RED CELL DISTRIBUTION WIDTH 16.4 % (11.6-16.5)
[2017-09-17 16:47] LABS: BLOOD UREA NITROGEN 21 mg/dL (7-18); CARBON DIOXIDE 25.6 mmol/L (21-32); CHLORIDE 103 mmol/L (98-107); COR NA(FOR HYPERGLY) 139 mmol/L (136-145); CREATININE 1.01 mg/dL (0.55-1.02); SODIUM 139 mmol/L (136-145); eGFR BLACK RACES > 60 (>60); eGFR NON BLACK RACES 56 (>60)
--- NOTE | 2017-09-17 16:55 | DR.SOBA ---
HPI - Time Seen Time seen: 16:15 - Primary Care Physician Primary Care Physician: JEANINE DO - Complaints Chief Complaint Doctors Comments: Discomfort in Lt. arm. she states she was d/c from here yesterday. her home health nurse called and sent her to the ED today due to low O2 sat. Here, her O2 on R/A was 90% and 93% on oxygen- 2L/min. Chief Complaint:: PT TO ER C/O SOB, AND SWELLING TO HER LEFT ARM ,, PT JUST D/C FROM [facility] ON 09/16/17 HOME HEALTH NURSE CALLED AND TOLD STAFF THAT PT'S O2 WAS LOW AND THAT SHE WAS RETURING TO THE ER, Self Treatment fo Chief Complaint: PT STATES I AM NOT SOB, NOW BUT MY LEFT ARM IS HURTING AND PT HAS A LEFT FA CELLULITING AND EDEMA NOTED ,,,,,, - Source History Provided: Patient - Mode of Arrival Mode of Arrival: Wheelchair - Timing Onset of Chief Complaint: 09/17/17 PMH - PMH Past Medical History: Yes Past Medical History: Asthma, COPD, Coronary Artery Disease, Dyslipidemia, Hypertension, [place] Past Surgical History: Yes Surgical History: Cholecystectomy, Hysterectomy, Mastectomy - Family History History of Family Medical Conditions: Yes Family Medical History: Diabetes Mellitus - Social History Does patient currently use any type of tobacco product: No Have you used tobacco products in the last 12 months: No Type of Tobacco Use: Cigarettes Does any household member use tobacco: No Alcohol Use: None Do you use any recreational Drugs:: No Lives With: Family Lives Where: Home - infectious screening In the last 2 months have you had wt loss of >10#?: NO Have you had fever, night sweats or hemotysis?: No Have you traveled outside the country in the last 6 months?: No Isolation: Standard ROS - Review of Systems Constitutional: No Symptoms Reported Eyes: No Symptoms Reported ENTM: No Symptoms Reported Respiratoy: No Symptoms Reported Cardiovascular: No Symptoms Reported Gastrointestinal/Abdominal: No Symptoms Reported Genitourinary: No Symptoms Reported Neurological: No Symptoms Reported Musculoskeletal: No Symptoms Reported Integumentary: No Symptoms Reported Hematologic/Lymphatic: No Symptoms Reported Endocrine: No Symptoms Reported Psychiatric: No Symptoms Reported PE - Vital Signs Vitals: Temperature 97.2 F Pulse Rate 92 Respiratory Rate 20 Blood Pressure [Left Arm] 142/63 Blood Pressure [Right Calf] 142/51 Blood Pressure [Right Arm] 102/57 Blood Pressure 73/39 O2 Sat by Pulse Oximetry 83 - General Limitations: No Limitations General Appearance: Alert, In No Apparent Distress - Head Head Exam: Normal Inspection - Eyes Eye exam: Normal Appearance - ENT ENT Exam: Normal Exam - Neck Neck Exam: Normal Inspection, Full ROM, Trachea Midline - Chest Chest Inspection: Normal Inspection, Symmetric Chest Wall Rise - Respiratory Respiratory Exam: Normal Lung Sounds Bilat - Cardiovascular Cardiovascular Exam: Regular Rate, Normal Rhythm - Abdominal Exam Abdominal Exam: Normal Inspection, Normal Bowel Sounds, Soft - Extremities Extremities Exam: Other (mild swelling over proximal left forearm with associated erythema and tenderness to palpation. There is a bruised area within this, presumed to be site of blown vein or infltrated site. ) - Back Back Exam: Normal Inspection - Neurologic Neurological Exam: Alert, Oriented X3 - Psychiatric Psychiatric Exam: Normal Affect - Skin Skin Exam: Dry, Erythema (proximal left forearm.) Course - Treatment Treatment: HEr oxygen saturation since being here have been equal to or greater that 90 % on R/A or on oxygen. She is maintained on home O2. I have looked through her home meds. also. - Reevaluation 1st: Improved 2nd: Improved - Education/Counseling Education/Counseling: Patient, Family, Counseling Educated On: Treatment, Diagnosis, Prognosis, Needs for Follow Up ROR - Labs Reviewed Result Diagrams: 09/17/17 16:30 09/17/17 16:30 Laboratory: WBC 12.0 X10^3/uL (3.6-10.0) H 09/17/17 16:30 RBC 3.07 X10^6/uL (3.5-5.4) L 09/17/17 16:30 Hgb 8.5 g/dL (12.0-16.0) L 09/17/17 16:30 Hct 24.9 % (36.0-47.0) L 09/17/17 16:30 MCV 81.0 fL (80.0-100.0) 09/17/17 16:30 MCH 27.7 pg (27.0-34.0) 09/17/17 16:30 MCHC 34.2 g/dL (33.0-35.0) 09/17/17 16:30 RDW 16.4 % (11.6-16.5) 09/17/17 16:30 Plt Count 407 X10^3/uL (150.0-450.0) 09/17/17 16:30 MPV 8.4 fL (7.4-11.0) 09/17/17 16:30 Neut % 77.8 % (42.0-75.0) H 09/17/17 16:30 Lymph % 9.3 % (21.0-51.0) L 09/17/17 16:30 [place] % 12.1 % (0.0-13.0) 09/17/17 16:30 Eos % 0.0 % (0.9-2.9) L 09/17/17 16:30 Baso % 0.8 % (0.2-1.0) 09/17/17 16:30 Neut # 9.4 x10^3/uL (2.2-4.8) H 09/17/17 16:30 Lymph # 1.1 X10^3/uL (1.3-2.9) L 09/17/17 16:30 [place] # 1.5 x10^3/uL (0.3-0.8) H 09/17/17 16:30 Eos # 0.0 x10^3/uL (0.0-0.2) 09/17/17 16:30 Baso # 0.1 X10^3/uL (0.0-0.1) 09/17/17 16:30 Absolute Nucleated RBC 0.0 /100WBC 09/17/17 16:30 Sodium 139 mmol/L (136-145) 09/17/17 16:30 Corrected Sodium 139 mmol/L (136-145) 09/17/17 16:30 Potassium 3.7 mmol/L (3.5-5.1) 09/17/17 16:30 Chloride 103 mmol/L (98-107) 09/17/17 16:30 Carbon Dioxide 25.6 mmol/L (21-32) 09/17/17 16:30 BUN 21 mg/dL (7-18) H 09/17/17 16:30 Creatinine 1.01 mg/dL (0.55-1.02) 09/17/17 16:30 Est GFR (MDRD) Af Amer > 60 (>60) 09/17/17 16:30 Est GFR (MDRD) Non-Af 56 (>60) L 09/17/17 16:30 Glucose 120 mg/dL (65-99) H 09/17/17 16:30 Calcium 8.0 mg/dL (8.5-10.1) L 09/17/17 16:30 - XRAY XRAY Interpreted by: Radiologist (No gross changes compared the CXR yesterday: findings of volume overload. ) - Diagnosis Discharge Problem: Cellulitis of left forearm, Prerenal azotemia - Discharge Plan Disposition: 01 HOME, SELF-CARE Condition: Stable - Follow ups/Referrals Follow ups/Referrals: Derik Cohen [Primary Care Provider] - 3 days - Instructions
[2017-09-17] MEDS ORDERED: ROCEPHIN VIAL 1 GM 1 GM in NS 100 ML IV + SPIKE MINIBAG* 100 ML IV ONE (17:33)
[2017-09-17] MEDS ORDERED: ROCEPHIN VIAL 1 GM ONE (17:40)
[2017-09-17 18:23] VITALS: BP 91/54
== END 2017-09-17 18:23 | disposition home or self-care (01) ==
LOC: ER 16:19
DX: L03.114 Cellulitis of left upper limb (principal); R79.89 Other specified abnormal findings of blood chemistry
CPT/HCPCS: 36415; 71045; 80048; 85025; 96365; 96374; 99282; 99283; 99284; A4222; J0696

== ENCOUNTER → 2017-09-25 | Outpatient (CLI) | payer OTHER, MEDICARE ==
[2017-09-17 18:23] VITALS: BP 91/54
[2017-09-25 13:47] LABS: BASOPHILS # (AUTO) 0.1 X10^3/uL (0.0-0.1); BASOPHILS % (AUTO) 0.9 % (0.2-1.0); EOSINOPHILS # (AUTO) 0.2 x10^3/uL (0.0-0.2); EOSINOPHILS % (AUTO) 2.1 % (0.9-2.9); HEMATOCRIT 25.9 % (36.0-47.0); HEMOGLOBIN 8.8 g/dL (12.0-16.0); LYMPHOCYTES # (AUTO) 1.3 X10^3/uL (1.3-2.9); LYMPHOCYTES % (AUTO) 14.1 % (21.0-51.0); MEAN CORPUSCULAR HEMOGLOBIN 27.5 pg (27.0-34.0); MEAN CORPUSCULAR VOLUME 80.7 fL (80.0-100.0); MEAN PLATELET VOLUME 8.4 fL (7.4-11.0); MONOCYTES # (AUTO) 0.8 x10^3/uL (0.3-0.8); MONOCYTES % (AUTO) 8.1 % (0.0-13.0); NEUTROPHILS # (AUTO) 7.1 x10^3/uL (2.2-4.8); NEUTROPHILS % (AUTO) 74.8 % (42.0-75.0); PLATELET COUNT 518 X10^3/uL (150.0-450.0); RED CELL DISTRIBUTION WIDTH 16.8 % (11.6-16.5); WHITE BLOOD COUNT 9.4 X10^3/uL (3.6-10.0)
[2017-09-25 13:50] LABS: BLOOD UREA NITROGEN 23 mg/dL (7-18); CALCIUM 8.5 mg/dL (8.5-10.1); CARBON DIOXIDE 27.6 mmol/L (21-32); CHLORIDE 108 mmol/L (98-107); CREATININE 0.96 mg/dL (0.55-1.02); SODIUM 143 mmol/L (136-145); eGFR BLACK RACES > 60 (>60); eGFR NON BLACK RACES 59 (>60)
== END ==
LOC: LAB 13:20
PROVIDERS: ATTEND Physician Assistant
DX: D64.89 Other specified anemias (principal)
CPT/HCPCS: 36415; 80048; 85025

== ENCOUNTER 2017-09-28 06:21 | Inpatient (IN) | payer OTHER, MEDICARE ==
[2017-09-28] MEDS ORDERED: NS 1000 ML 1,000 ML ONE ×2 (06:26→09:30)
--- NOTE | 2017-09-28 06:36 | DR.GENAD ---
HPI - HPI Comment HPI Comment: PATIENT ON PLAVIX, ELIQUIST AND NAPROXEN. SHE IS WEAK AND HAVING NEAR SYNCOPAL FEELING. - Complaint/Symptoms Chief Complaint Doctors Comments: WEAKNESS, DIZZINES, FBM WITH BLOODY STOOL TIMES - Nurses notes reviewed Nurses Notes Review: Yes - Source History Provided: Patient, Family Member - Mode of Arrival Mode of Arrival: Stretcher - Timing Came on: Suddenly - Duration Duration: Constant Duration: Days - Severity Severity: Moderate <LORENA FU - Last Filed: 09/28/17 08:12> - PCP Primary Care Physician: Dr Cohen <KEITH DICKENS - Last Filed: 09/28/17 09:15> PMH - PMH Past Medical History: Asthma, COPD, Coronary Artery Disease, Dyslipidemia, Hypertension, [place] Past Surgical History: Yes Surgical History: Cholecystectomy, Hysterectomy, Mastectomy - Family History Family Medical History: Diabetes Mellitus - Social History Do you use any recreational Drugs:: No <LORNEA FU - Last Filed: 09/28/17 08:12> ROS - Review of Systems Constitutional: Weakness, Fatigue, Loss of Appetite. negative: Chills, Fever Eyes: Blurred Vision. negative: Eye Pain, Discharge ENTM: No Symptoms Reported. negative: Ear Pain, Nose Discharge, Nose Congestion , Throat Pain Respiratoy: Short of Breath, Wheezing. negative: Productive Cough, Non- Productive Cough, Hemoptysis Cardiovascular: Edema, Syncope (NEAR SYNCOPE). negative: Chest Pain Gastrointestinal/Abdominal: Abdominal Pain, Diarrhea Genitourinary: negative: Dysuria, Frequency, Hematuria Neurological: Weakness, Dizziness Musculoskeletal: Muscle Pain Integumentary: Other (PALE) Hematologic/Lymphatic: Anemia, Easy Bleeding, Easy Bruising Endocrine: No Symptoms Reported All Other Systems: Reviewed and Negative <LORENA FU - Last Filed: 09/28/17 08:12> PE - General Limitations: No Limitations General Appearance: Alert - Head Head Exam: Normal Inspection - Eyes Eye exam: PERRL, EOMI, Other (CONJUNCTIVA PALE). negative: Scleral Icterus - ENT ENT Exam: Normal External Ear Exam External Ear Exam: Normal External Inspection TM/Canal Exam: Bilateral Normal Nose Exam: Normal Nose Exam Mouth Exam: Normal Inspection Throat Exam: Normal Inspection - Neck Neck Exam: Trachea Midline - Chest Chest Inspection: Symmetric Chest Wall Rise - Respiratory Respiratory Exam: Normal Lung Sounds Bilat Respiratory Exam: Bilateral Clear to Auscultation - Cardiovascular Cardiovascular Exam: Regular Rate, Normal Rhythm, Normal Heart Sounds - Abdominal Exam Abdominal Exam: Normal Bowel Sounds, Soft, Tenderness - Extremities Extremities Exam: Normal Inspection - Back Back Exam: Normal Inspection - Neurologic Neurological Exam: Alert, Oriented X3 - Psychiatric Psychiatric Exam: Anxious - Skin Skin Exam: Normal Color <LORENA FU - Last Filed: 09/28/17 08:12> - Vital Signs Vitals: Temperature 97.6 F Pulse Rate [Left Radial] 68 Pulse Rate 69 Respiratory Rate 16 Blood Pressure [Left Calf] 183/73 Blood Pressure [Left Arm] 91/54 Blood Pressure [Right Calf] 142/51 Blood Pressure [Right Arm] 73/48 Blood Pressure 145/90 O2 Sat by Pulse Oximetry 100 MDM - Additional Information Additional Information Obtained From: Family - Differential Diagnosis Differential Diagnosis: ANEMIA, GI BLEEDING, <BLANCHE FUTiffanyTucker - Last Filed: 09/28/17 08:12> Course - Treatment Treatment: SEE ORDERS. - Education/Counseling Education/Counseling: Patient, Family Educated On: Diagnosis <MEDINA FUAYE - Last Filed: 09/28/17 08:12> - Consultation Called: 09:10 (Dr Agreed to admit for chest pain r/o) <KEITH DICKENS - Last Filed: 09/28/17 09:15> ROR - Labs Reviewed Result Diagrams: 09/28/17 07:00 09/28/17 07:00 <LORENA FU - Last Filed: 09/28/17 08:12> - Labs Reviewed Result Diagrams: 09/28/17 08:04 09/28/17 07:00 - XRAY XRAY Interpreted by: Radiologist (CT Abd/Pel: Findings consistent with acute lynch colitis likely inflammatory or infectious in orgin and with material of increased attenuation coating of the mucosa in the cecum, ascending and proximal transverse colon possible representing hemorrhage in this patient with hematochezia and melena. Mor prominent pericecal inflammation likely related to the colitis. The appendix,hower, is not identified. Appendicitis is not excluded and should be clinically excluded.) <KEITH DICKENS - Last Filed: 09/28/17 09:15> - Labs Reviewed Laboratory: 09/28/17 06:31 Stool - Final WBC 10.1 X10^3/uL (3.6-10.0) H 09/28/17 07:00 RBC 2.93 X10^6/uL (3.5-5.4) L 09/28/17 07:00 Hgb 8.2 g/dL (12.0-16.0) L 09/28/17 08:04 Hct 24.8 % (36.0-47.0) L 09/28/17 08:04 MCV 81.5 fL (80.0-100.0) 09/28/17 07:00 MCH 27.6 pg (27.0-34.0) 09/28/17 07:00 MCHC 33.8 g/dL (33.0-35.0) 09/28/17 07:00 RDW 17.6 % (11.6-16.5) H 09/28/17 07:00 Plt Count 466 X10^3/uL (150.0-450.0) H 09/28/17 07:00 MPV 8.7 fL (7.4-11.0) 09/28/17 07:00 Neut % (Auto) 69.8 % (42.0-75.0) 09/28/17 07:00 Lymph % (Auto) 17.3 % (21.0-51.0) L 09/28/17 07:00 [place] % (Auto) 9.5 % (0.0-13.0) 09/28/17 07:00 Eos % (Auto) 2.3 % (0.9-2.9) 09/28/17 07:00 Baso % (Auto) 1.1 % (0.2-1.0) H 09/28/17 07:00 Neut # (Auto) 7.0 x10^3/uL (2.2-4.8) H 09/28/17 07:00 Lymph # (Auto) 1.7 X10^3/uL (1.3-2.9) 09/28/17 07:00 [place] # (Auto) 1.0 x10^3/uL (0.3-0.8) H 09/28/17 07:00 Eos # (Auto) 0.2 x10^3/uL (0.0-0.2) 09/28/17 07:00 Baso # (Auto) 0.1 X10^3/uL (0.0-0.1) 09/28/17 07:00 Absolute Nucleated RBC 0.0 /100WBC 09/28/17 07:00 INR Target Range - 09/28/17 07:00 INR 1.53 (0.8-1.3) H 09/28/17 07:00 APTT 38.3 SECONDS (22.9-36.5) H 09/28/17 07:00 PTT Comment - 09/28/17 07:00 Sodium 143 mmol/L (136-145) 09/28/17 07:00 Corrected Sodium TNP 09/28/17 07:00 Potassium 4.0 mmol/L (3.5-5.1) 09/28/17 07:00 Chloride 109 mmol/L (98-107) H 09/28/17 07:00 Carbon Dioxide 25.1 mmol/L (21-32) 09/28/17 07:00 BUN 19 mg/dL (7-18) H 09/28/17 07:00 Creatinine 0.92 mg/dL (0.55-1.02) 09/28/17 07:00 Est GFR (MDRD) Af Amer > 60 (>60) 09/28/17 07:00 Est GFR (MDRD) Non-Af > 60 (>60) 09/28/17 07:00 Glucose 96 mg/dL (65-99) 09/28/17 07:00 Calcium 7.5 mg/dL (8.5-10.1) L 09/28/17 07:00 Corrected Calcium 8.9 mg/dL (8.5-10.1) 09/28/17 07:00 Total Bilirubin 0.30 mg/dL (0.2-1.0) 09/28/17 07:00 AST 24 Units/L (15-37) 09/28/17 07:00 ALT 20 Units/L (12-78) 09/28/17 07:00 Alkaline Phosphatase 55 Units/L (46-116) 09/28/17 07:00 Creatine Kinase 22 Units/L (26-192) L 09/28/17 07:00 CK-MB (CK-2) < 1.0 ng/mL (0-4.0) 09/28/17 07:00 CK/CKMB % Calc 4.6 % (<4) 09/28/17 07:00 Troponin I 0.02 ng/mL (0-1.5) 09/28/17 07:00 Total Protein 5.4 g/dL (6.4-8.2) L 09/28/17 07:00 Albumin 2.2 g/dL (3.4-5.0) L 09/28/17 07:00 Globulin 3.2 g/dL (2.5-4.5) 09/28/17 07:00 Albumin/Globulin Ratio 0.7 Ratio (1.1-2.1) L 09/28/17 07:00 Stool Description 150g black liquid 09/28/17 06:31 Stl Occult Blood (IFOB) Positive (NEGATIVE) A 09/28/17 06:31 Stool for White Cells Positive (NEGATIVE) A 09/28/17 06:31 Stl C. diff Tox B Gene Positive (NEGATIVE) A 09/28/17 06:31 Stl C. diff 027-NAP1-BI Negative (NEGATIVE) 09/28/17 06:31 Cryptosporid parvum Ag Negative (NEGATIVE) 09/28/17 06:31 E. histolytica Antigen Negative (NEGATIVE) 09/28/17 06:31 Giardia lamblia Ag Negative (NEGATIVE) 09/28/17 06:31 Blood Type A POSITIVE 09/28/17 07:00 Antibody Screen Negative 09/28/17 07:00 Crossmatch See Detail 09/28/17 07:00 <LORENA FU - Last Filed: 09/28/17 08:12> <KEITH DICKENS - Last Filed: 09/28/17 09:15> - Diagnosis Discharge Problem: Chest pain Qualifiers: Chest pain type: unspecified Qualified Code(s): R07.9 - Chest pain, unspecified - Discharge Plan Condition: Stable - Follow ups/Referrals Follow ups/Referrals: Derik Cohen [Primary Care Provider] - 3 days - Instructions
[2017-09-28 06:38] VITALS: BMI 22.6
[2017-09-28] MEDS ORDERED: PROTONIX INJ 40 MG VIAL ONE (06:40)
[2017-09-28] MEDS ORDERED: NS 100 ML IV 100 ML IV ONE (06:40)
[2017-09-28] MEDS: NS 1000 ML 1,000 ML IV SCH ×3 (06:43→23:05)
[2017-09-28] MEDS: PROTONIX INJ 40 MG VIAL 80 MG in NS 100 ML IV 80 ML IV SCH ×3 (06:48→17:17)
[2017-09-28 07:24] LABS: BASOPHILS # (AUTO) 0.1 X10^3/uL (0.0-0.1); BASOPHILS % (AUTO) 1.1 % (0.2-1.0); EOSINOPHILS # (AUTO) 0.2 x10^3/uL (0.0-0.2); EOSINOPHILS % (AUTO) 2.3 % (0.9-2.9); HEMATOCRIT 23.9 % (36.0-47.0); HEMOGLOBIN 8.1 g/dL (12.0-16.0); LYMPHOCYTES # (AUTO) 1.7 X10^3/uL (1.3-2.9); LYMPHOCYTES % (AUTO) 17.3 % (21.0-51.0); MEAN CORPUSCULAR HEMOGLOBIN 27.6 pg (27.0-34.0); MEAN CORPUSCULAR HGB CONC 33.8 g/dL (33.0-35.0); MEAN CORPUSCULAR VOLUME 81.5 fL (80.0-100.0); MEAN PLATELET VOLUME 8.7 fL (7.4-11.0); MONOCYTES % (AUTO) 9.5 % (0.0-13.0); NEUTROPHILS % (AUTO) 69.8 % (42.0-75.0); PLATELET COUNT 466 X10^3/uL (150.0-450.0); RED BLOOD COUNT 2.93 X10^6/uL (3.5-5.4); RED CELL DISTRIBUTION WIDTH 17.6 % (11.6-16.5); WHITE BLOOD COUNT 10.1 X10^3/uL (3.6-10.0)
[2017-09-28 07:24] LABS: STOOL FOR WBC POSITIVE (NEGATIVE)
[2017-09-28 07:32] LABS: BLOOD UREA NITROGEN 19 mg/dL (7-18); CALCIUM 7.5 mg/dL (8.5-10.1); CARBON DIOXIDE 25.1 mmol/L (21-32); CHLORIDE 109 mmol/L (98-107); CREATININE 0.92 mg/dL (0.55-1.02); SODIUM 143 mmol/L (136-145); TROPONIN I 0.02 ng/mL (0-1.5); eGFR BLACK RACES > 60 (>60); eGFR NON BLACK RACES > 60 (>60)
[2017-09-28 07:32] LABS: CRYPTOSPORIDIUM PARVUM ANTIGEN NEGATIVE (NEGATIVE); GIARDIA LAMBLIA ANTIGEN NEGATIVE (NEGATIVE)
[2017-09-28 07:36] LABS: ALANINE AMINOTRANSFERASE 20 Units/L (12-78); ALBUMIN 2.2 g/dL (3.4-5.0); ALKALINE PHOSPHATASE 55 Units/L (46-116); ASPARTATE AMINO TRANSFERASE 24 Units/L (15-37); CKMB % 4.6 % (<4); COR CA(FOR HYPOALB) 8.9 mg/dL (8.5-10.1); CREATINE KINASE 22 Units/L (26-192); CREATINE KINASE MB < 1.0 ng/mL (0-4.0); TOTAL PROTEIN 5.4 g/dL (6.4-8.2)
[2017-09-28 08:13] LABS: HEMATOCRIT 24.8 % (36.0-47.0); HEMOGLOBIN 8.2 g/dL (12.0-16.0)
--- NOTE | 2017-09-28 08:59 | CT ---
HISTORY: Hematochezia, abdominal pain Study: CT abdomen pelvis without contrast Comparison: None Technique: Axial noncontrast images with coronal and sagittal reformats. Dose reduction procedures we re used with mA/kv adjusted for body size. This examination is limited due to the lack of intravenous and oral contrast. Findings: Bilateral pleural effusions are present. The lung bases are otherwise clear. The liver, spleen, adren al glands, and pancreas are within normal limits to the limitations of an unenhanced examination. The patient is status post cholecystectomy. The kidneys are unobstructed and without stones. No ureteral calculi are identified. Calcific atherosclerotic changes present in a nondilated abdominal aorta. No intraperitoneal or retroperitoneal lymphadenopathy of significance is identified. There is mild to m oderate transmural thickening of the colonic wall cecum to rectum with pericolonic fat stranding like ly indicative of inflammation. This finding is most consistent with a diffuse lynch colitis which could be infectious or inflammatory in origin. Ischemia is less likely due to the distribution. The peric olonic inflammation is most prominent in the pericecal area this could be related to colitis however the appendix is not identified with absolute certainty and therefore appendicitis could not be entire ly excluded. Additionally there is material of increased attenuation within the cecum, ascending, an d transverse colon possibly indicative of hemorrhage particularly considering the history of hematoch ezia and melena. Examination of the pelvis demonstrated no evidence for pelvic masses, pelvic fluid, or pelvic lymphadenopathy. No bladder abnormality is identified. No lytic or blastic skeletal lesions are identified. IMPRESSION: Limited examination due to the lack of intravenous and oral contrast. Findings consistent with acute lynch colitis likely inflammatory or infectious in origin and with mater ial of increased attenuation coating of the mucosa in the cecum, ascending and proximal transverse co juany possibly representing hemorrhage in this patient with hematochezia and melena More prominent pericecal inflammation likely related to the colitis. The appendix, however, is not id entified. Appendicitis is not excluded and should be clinically excluded. Bilateral pleural effusions Reported By:
[2017-09-28] MEDS ORDERED: LEVSIN SYRUP PO PRN (09:22)
[2017-09-28] MEDS: NEURONTIN CAP 100 MG PO PRN ×2 (11:10→14:07)
[2017-09-28] MEDS: DUONEB 0.5 MG/3 MG NEB PRN ×3 (12:10→21:44)
[2017-09-28 14:05] LABS: BILIRUBIN,URINE NEGATIVE (NEGATIVE); BLOOD/HEMOGLOBIN,URINE 3+ (NEGATIVE); GLUCOSE, URINE NEGATIVE (NEGATIVE); KETONES,URINE NEGATIVE (NEGATIVE); LEUKOCYTE ESTERASE ,URINE 3+ (NEGATIVE); NITRITES,URINE NEGATIVE (NEGATIVE); PROTEIN,URINE 2+ (NEGATIVE); UROBILINOGEN,URINE NORMAL (NORMAL)
[2017-09-28] MEDS: REQUIP PO SCH ×2 (14:08→21:24)
[2017-09-28] MEDS: IMODIUM CAP 2 MG PO SCH ×3 (14:08→20:17)
[2017-09-28 14:15] LABS: APPEARANCE,URINE SLIGHTLY HAZY (CLEAR); COLOR,URINE YELLOW (YELLOW)
[2017-09-28 14:17] LABS: BACTERIA,URINE TRACE /HPF (NEGATIVE); SQUAMOUS EPITHELIAL CELL,UR MODERATE /HPF (NEGATIVE)
[2017-09-28 14:34] LABS: CKMB % 3.6 % (<4); TROPONIN I 0.03 ng/mL (0-1.5)
[2017-09-28 19:07] LABS: HEMATOCRIT 24.4 % (36.0-47.0); HEMOGLOBIN 8.1 g/dL (12.0-16.0)
[2017-09-28 19:27] LABS: CKMB % 4.4 % (<4); CREATINE KINASE 23 Units/L (26-192); CREATINE KINASE MB < 1.0 ng/mL (0-4.0); TROPONIN I 0.02 ng/mL (0-1.5)
[2017-09-28] MEDS: PEPCID TAB 20 MG PO SCH (20:16)
[2017-09-28] MEDS: PRAVACHOL PO SCH (20:16)
[2017-09-28] MEDS: NEURONTIN CAP 300 MG PO SCH (20:17)
[2017-09-28] MEDS: ELIQUIS PO SCH (20:17)
[2017-09-28] MEDS: NAMENDA TAB 10 MG PO SCH (20:17)
[2017-09-28] MEDS ORDERED: BUDESONIDE 0.25 MG IH SCH (21:00)
[2017-09-28] MEDS ORDERED: PATIENT'S HOME MEDICATION (Naproxen [Naproxen] 1 TAB) PO SCH (21:00)
[2017-09-28] MEDS: PULMICORT NEB TX 0.5 MG NEB SCH (21:45)
[2017-09-29] MEDS: PROTONIX INJ 40 MG VIAL 80 MG in NS 100 ML IV 80 ML IV SCH ×4 (00:47→22:00)
[2017-09-29 06:26] LABS: BASOPHILS # (AUTO) 0.1 X10^3/uL (0.0-0.1); EOSINOPHILS # (AUTO) 0.2 x10^3/uL (0.0-0.2); EOSINOPHILS % (AUTO) 1.3 % (0.9-2.9); HEMATOCRIT 23.8 % (36.0-47.0); HEMOGLOBIN 7.8 g/dL (12.0-16.0); LYMPHOCYTES # (AUTO) 1.8 X10^3/uL (1.3-2.9); LYMPHOCYTES % (AUTO) 16.1 % (21.0-51.0); MEAN CORPUSCULAR HEMOGLOBIN 26.9 pg (27.0-34.0); MEAN CORPUSCULAR HGB CONC 32.7 g/dL (33.0-35.0); MEAN CORPUSCULAR VOLUME 82.2 fL (80.0-100.0); MEAN PLATELET VOLUME 8.8 fL (7.4-11.0); MONOCYTES # (AUTO) 1.1 x10^3/uL (0.3-0.8); MONOCYTES % (AUTO) 9.9 % (0.0-13.0); NEUTROPHILS # (AUTO) 8.2 x10^3/uL (2.2-4.8); NEUTROPHILS % (AUTO) 71.7 % (42.0-75.0); PLATELET COUNT 412 X10^3/uL (150.0-450.0); RED CELL DISTRIBUTION WIDTH 17.8 % (11.6-16.5); WHITE BLOOD COUNT 11.4 X10^3/uL (3.6-10.0)
[2017-09-29 06:46] LABS: ALANINE AMINOTRANSFERASE 15 Units/L (12-78); ALBUMIN 1.6 g/dL (3.4-5.0); ALKALINE PHOSPHATASE 40 Units/L (46-116); ASPARTATE AMINO TRANSFERASE 24 Units/L (15-37); BLOOD UREA NITROGEN 12 mg/dL (7-18); CARBON DIOXIDE 20.3 mmol/L (21-32); CHOL/HDL RATIO 3.2 (0.0-5.0); CHOLESTEROL 74 mg/dL (0-200); COR CA(FOR HYPOALB) 8.9 mg/dL (8.5-10.1); CREATININE 0.73 mg/dL (0.55-1.02); HDL CHOLESTEROL 23 mg/dL (40-60); MAGNESIUM 1.8 mg/dL (1.7-2.9); SODIUM 145 mmol/L (136-145); TOTAL PROTEIN 4.4 g/dL (6.4-8.2); TRIGLYCERIDES 105 mg/dL (0-150); eGFR BLACK RACES > 60 (>60); eGFR NON BLACK RACES > 60 (>60)
[2017-09-29 06:47] LABS: PLATELET MORPHOLOGY COMMENT NORMAL (NORMAL)
[2017-09-29] MEDS: REQUIP PO SCH ×3 (06:49→21:36)
[2017-09-29] MEDS: NS 1000 ML 1,000 ML IV SCH ×3 (06:52→21:59)
[2017-09-29 06:54] LABS: CHLORIDE 116 mmol/L (98-107)
[2017-09-29] MEDS: PLAVIX PO SCH ×2 (08:25→12:25)
[2017-09-29] MEDS: PULMICORT NEB TX 0.5 MG NEB SCH ×2 (09:23→22:22)
[2017-09-29] MEDS: DUONEB 0.5 MG/3 MG NEB PRN ×3 (09:23→22:22)
[2017-09-29] MEDS ORDERED: NS 500 ML IV 500 ML IV ONE (12:15)
[2017-09-29] MEDS: FLAGYL TAB 500 MG PO SCH ×3 (12:21→21:59)
[2017-09-29] MEDS: NEURONTIN CAP 100 MG PO PRN (12:22)
[2017-09-29] MEDS: HEMOCYTE-PLUS PO SCH (12:23)
[2017-09-29] MEDS: NAMENDA TAB 10 MG PO SCH ×2 (12:23→21:36)
[2017-09-29] MEDS: SINGULAIR TAB 10 MG PO SCH (12:23)
[2017-09-29] MEDS: ELIQUIS PO SCH ×2 (12:24→21:36)
[2017-09-29] MEDS: ARICEPT TAB 10 MG PO SCH (12:24)
[2017-09-29] MEDS: CORDARONE TAB 200 MG PO SCH (12:24)
[2017-09-29] MEDS: PEPCID TAB 20 MG PO SCH ×2 (12:24→21:36)
[2017-09-29] MEDS: IMODIUM CAP 2 MG PO SCH ×3 (12:25→21:36)
[2017-09-29] MEDS: ROCEPHIN VIAL 1 GM 1 GM in NS 100 ML IV + SPIKE MINIBAG* 100 ML IV SCH (12:30)
[2017-09-29] MEDS: ZOFRAN INJ 4 MG VIAL IVP PRN ×2 (13:14→21:44)
--- NOTE | 2017-09-29 19:00 | DR.H&P ---
H&P - History & Physical for Day of: H&P Date: 09/28/17 - Chief Complaint Chief Complaint: WEAKNESS, DIZZINESS, BLOOD IN STOOLS - Allergies Allergies/Adverse Reactions: Allergies Allergy/AdvReac Type Severity Reaction Status Date / Time No Known Drug Allergies Allergy Verified 09/17/17 16:26 - History of Present Illness History of Present Illness: IS A 82 YEAR OLD PATIENT OF OURS WHO PRESENTED TO THE EMERGENCY ROOM WITH COMPLAINTS OF GENERALIZED WEAKNESS, DIZZINESS, AND FREQUENT BOWEL MOVEMENTS WITH BLOOD NOTED IN STOOL. PATIENTS DAUGHTER REPORTS THAT SHE HAS NEARLY PASSED OUT SEVERAL TIMES AT HOME. THEY REPORT THAT SYMPTOMS STARTED TWO DAYS AGO. PATIENT REPORTS CURRENTLY BEING ON PLAVIX, ELIQUIS, AND NAPROXEN. ASSOCIATED SYMPTOMS ARE FATIGUE, LOSS OF APPETITIE, BLURRED VISION, SHORTNESS OF BREATH, WHEEZING, AND LOWER ABDOMINAL PAIN. ON ARRIVAL TO THE ER, VITALS WERE 97.6-69-17-100%-145/90. LABS WERE OBTAINED. ABNORMAL LAB VALUES INCLUDE THE FOLLOWING: WBC 10.1, RBC 2.93, HGB 8.1 , HCT 23.9, PLT COUNT 466, INR 1.53, PTT 38.3, CHLORIDE 109, BUN 19, CALCIUM 7.5 , CREATINE KINASE 22, TOTAL PROTEIN 5.4, ALBUMIN 2.2. CARDIAC ENZYMES WITHIN NORMAL LIMITS. A URINALYSIS REVEALED WBC 5-10, RBC 3-5, LEUKOCYTES 3+, BACTERIA TRACE, OCCULT BLOOD 3+. A STOOL SAMPLE WAS COLLECTED AND WAS POSITIVE FOR OCCULT BLOOD, WBC, AND POSITIVE FOR THE C.DIFF TOXIN. ABD/PELVIS CT WAS OBTAINED AND REPORTED Findings consistent with acute lynch colitis likely inflammatory or infectious in origin and with material of increased attenuation coating of the mucosa in the cecum, ascending and proximal transverse colon possible representing hemorrhage in this patient with hematochezia and melena. More prominent pericecal inflammation likely related to the colitis. WE ADMITTED PATIENT TO THE HOSPITAL FOR FURTHER EVALUATION AND TREATMENT. SHE WAS STARTED ON NORMAL SALINE AT 125ML/HR, ROCEPHIN 1GM IV DAILY, PROTONIX DRIP, AND FLAGYL 500MG PO Q6H. WE WILL OBTAIN SERIAL CARDIAC ENZYMES AND EKGS. WE PLAN TO FOLLOW UP WITH AM LABS AND 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 PATIENT. - Past Medical History Past Medical History: Asthma, COPD, Coronary Artery Disease, Dyslipidemia, Hypertension, ND Additional Medical History: Breast and uterine cancer - Past Surgical History Surgical History: Cholecystectomy, Hysterectomy, Mastectomy - Family History Family Medical History: Diabetes Mellitus - Social History Does patient currently use any type of tobacco product: Yes Have you used tobacco products in the last 12 months: Yes Type of Tobacco Use: Cigarettes Does any household member use tobacco: No Alcohol Use: None Drug Use: None - Medications Home Medications: Budesonide 0.25 mg IH BID 09/28/17 [History Confirmed 09/28/17] Famotidine [Famotidine] 40 mg PO BID 09/28/17 [History Confirmed 09/28/17] Hyoscyamine Sulfate [Levsin Syrup] 15 ml PO TID PRN 09/28/17 [History Confirmed 09/28/17] Ipratropium/Albuterol Nebule [DUONEB 0.5 MG/3 MG NEBULE *] 1 nebule NEB QID PRN 09/28/17 [History Confirmed 09/28/17] Loperamide HCl [Imodium A-D] 2 mg PO QID 09/28/17 [History Confirmed 09/28/17] Naproxen [Naproxen] 1 tab PO BID 09/28/17 [History Confirmed 09/28/17] - Review of Systems Constitutional: Weakness, Malaise, Other (DECREASED APPETITIE ) Eyes: Other (BLURRED VISION ) ENT: No Symptoms Reported. denies: See HPI, Ear Pain, Ear Discharge, Nose Pain , Nose Discharge, Nose Congestion, Mouth Pain, Mouth Swelling, Throat Pain, Throat Swelling, Other Respiratory: Shortness of Breath, Wheezing. denies: Cough, Sputum Cardiovascular: Light Headedness. denies: Chest Pain Gastrointestinal: Abdominal Pain, Diarrhea, Melena, Hematochezia Genitourinary: No Symptoms Reported Musculoskeletal: No Symptoms Reported Skin: No Symptoms Reported Neurological: Weakness - Physical Exam Vital Signs: Temperature 97.5 F Pulse Rate [Left Radial] 90 Pulse Rate 79 Respiratory Rate 21 Blood Pressure [Left Calf] 183/73 Blood Pressure [Left Arm] 138/59 Blood Pressure [Right Calf] 142/51 Blood Pressure [Right Arm] 162/67 Blood Pressure 145/90 O2 Sat by Pulse Oximetry 97 Oriented: Normal Eyes: Blurred Vision Ear: Normal Nose: Normal Throat: Normal Respiratory: Diminished Throughout Cardiovascular: Normal. negative: S3, S4, Murmur : Normal Auscultation: Bowel Sounds: Normal Palpation: Normal Tenderness: Diffuse, Suprapubic, Mild Skin: Normal Musculoskeletal: Normal Psychiatric: Normal Mood Description: Calm Affect: Normal Speech Pattern: Clear - Assessment/Plan (1) C. difficile colitis Status: Acute Plan: FLAGYL 500MG PO Q6H, NORMAL SALINE AT 125ML/HR, 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 (2) Urinary tract infection Qualifiers: Urinary tract infection type: acute cystitis Hematuria presence: with hematuria Qualified Code(s): N30.01 - Acute cystitis with hematuria Status: Acute Plan: ROCEPHIN 1GM IV DAILY, NORMAL SALINE AT 125ML/HR, 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 (3) Anemia Qualifiers: Anemia type: iron deficiency Iron deficiency anemia type: unspecified iron deficiency Qualified Code(s): D50.9 - Iron deficiency anemia, unspecified Status: Acute Plan: MONITOR H&H (4) Chest pain Qualifiers: Chest pain type: unspecified Qualified Code(s): R07.9 - Chest pain, unspecified Status: Acute Plan: SERIAL CARDIAC ENZYMES AND EKG, CARD SELLER, 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
[2017-09-29] MEDS: NEURONTIN CAP 300 MG PO SCH (21:35)
[2017-09-29] MEDS: PRAVACHOL PO SCH (21:36)
[2017-09-30] MEDS: FLAGYL TAB 500 MG PO SCH ×4 (05:24→22:01)
[2017-09-30] MEDS: REQUIP PO SCH ×3 (05:24→21:42)
[2017-09-30] MEDS: ZOFRAN INJ 4 MG VIAL IVP PRN ×3 (05:25→20:24)
[2017-09-30 06:01] LABS: BASOPHILS # (AUTO) 0.1 X10^3/uL (0.0-0.1); BASOPHILS % (AUTO) 0.8 % (0.2-1.0); EOSINOPHILS # (AUTO) 0.1 x10^3/uL (0.0-0.2); EOSINOPHILS % (AUTO) 0.9 % (0.9-2.9); HEMATOCRIT 24.6 % (36.0-47.0); HEMOGLOBIN 8.1 g/dL (12.0-16.0); LYMPHOCYTES # (AUTO) 1.8 X10^3/uL (1.3-2.9); LYMPHOCYTES % (AUTO) 14.9 % (21.0-51.0); MEAN CORPUSCULAR HEMOGLOBIN 27.3 pg (27.0-34.0); MEAN CORPUSCULAR VOLUME 82.8 fL (80.0-100.0); MONOCYTES # (AUTO) 1.1 x10^3/uL (0.3-0.8); MONOCYTES % (AUTO) 9.1 % (0.0-13.0); NEUTROPHILS # (AUTO) 8.9 x10^3/uL (2.2-4.8); NEUTROPHILS % (AUTO) 74.3 % (42.0-75.0); PLATELET COUNT 398 X10^3/uL (150.0-450.0); RED BLOOD COUNT 2.97 X10^6/uL (3.5-5.4)
[2017-09-30] MEDS: NS 1000 ML 1,000 ML IV SCH ×4 (06:12→22:00)
[2017-09-30 06:22] LABS: ALANINE AMINOTRANSFERASE 13 Units/L (12-78); ALBUMIN 1.5 g/dL (3.4-5.0); ALKALINE PHOSPHATASE 36 Units/L (46-116); ASPARTATE AMINO TRANSFERASE 18 Units/L (15-37); BLOOD UREA NITROGEN 13 mg/dL (7-18); CALCIUM 7.1 mg/dL (8.5-10.1); CARBON DIOXIDE 22.4 mmol/L (21-32); COR CA(FOR HYPOALB) 9.1 mg/dL (8.5-10.1); COR NA(FOR HYPERGLY) 145 mmol/L (136-145); CREATININE 0.82 mg/dL (0.55-1.02); SODIUM 145 mmol/L (136-145); TOTAL PROTEIN 4.2 g/dL (6.4-8.2); eGFR BLACK RACES > 60 (>60); eGFR NON BLACK RACES > 60 (>60)
[2017-09-30 06:35] LABS: CHLORIDE 115 mmol/L (98-107)
[2017-09-30] MEDS: DUONEB 0.5 MG/3 MG NEB PRN ×4 (09:46→20:25)
[2017-09-30] MEDS: PULMICORT NEB TX 0.5 MG NEB SCH ×2 (09:47→20:25)
[2017-09-30] MEDS: PEPCID TAB 20 MG PO SCH ×2 (10:06→20:24)
[2017-09-30] MEDS: HEMOCYTE-PLUS PO SCH (10:06)
[2017-09-30] MEDS: SINGULAIR TAB 10 MG PO SCH (10:06)
[2017-09-30] MEDS: CORDARONE TAB 200 MG PO SCH (10:06)
[2017-09-30] MEDS: ARICEPT TAB 10 MG PO SCH (10:07)
[2017-09-30] MEDS: PLAVIX PO SCH (10:07)
[2017-09-30] MEDS: NAMENDA TAB 10 MG PO SCH ×2 (10:07→20:24)
[2017-09-30] MEDS: ELIQUIS PO SCH (10:07)
[2017-09-30] MEDS: ROCEPHIN VIAL 1 GM 1 GM in NS 100 ML IV + SPIKE MINIBAG* 100 ML IV SCH (10:08)
[2017-09-30] MEDS: PROTONIX INJ 40 MG VIAL 80 MG in NS 100 ML IV 80 ML IV SCH ×2 (10:08→19:00)
[2017-09-30] MEDS: IMODIUM CAP 2 MG PO SCH ×4 (10:17→20:24)
[2017-09-30 17:09] LABS: HEMATOCRIT 25.5 % (36.0-47.0); HEMOGLOBIN 8.5 g/dL (12.0-16.0)
[2017-09-30] MEDS: PRAVACHOL PO SCH (20:24)
[2017-09-30] MEDS: NEURONTIN CAP 300 MG PO SCH (20:25)
--- NOTE | 2017-09-30 21:50 | PCM.PROG ---
Progress Note - Progress Note for Day of Date: 09/29/17 - Subjective Subjective: IS BEING TREATED FOR COLITIS, URINARY TRACT INFECTION, C- DIFF, AND ANEMIA. TODAY, SHE IS ALERT AND ORIENTED, SITTING UP IN THE BED ON MORNING ROUNDS. SHE IS NOTED WITH COMPLAINTS OF DIFFUSE ABDOMINAL PAIN AND GENERALIZED WEAKNESS. SHE DENIES CHEST PAIN THIS MORNING. HER VITALS THIS MORNING ARE 98.6-79-18-96%-124/55. LABS WERE OBTAINED. ABNORMAL LAB VALUES INCLUDE THE FOLLOWING: WBC 11.4, RBC 2.90, HGB 7.8, HCT 23.8, CHLORIDE 116, CARBON DIOXIDE 20.3, GLUCOSE 100, CALCIUM 7.0, TOTAL BILI 0.10, ALK PHOS 40, TOTAL PROTEIN 4.4, ALBUMIN 1.6. CARDIAC ENZYMES HAVE BEEN WITHIN NORMAL LIMITS. TODAY, WE WILL CONTINUE PO FLAGYL, FOR C-DIFF AND COLITIS AND ROCEPHIN FOR URINARY TRACT INFECTION. WE WILL 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 HER HEMOGLOBIN AND TRANSFUSE PACKED RED BLOOD CELLS IF NEEDED. OTHERWISE, WE PLAN TO FOLLOW UP WITH AM LABS AND 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 PATIENT. - Past Medical Family Social History Past Med/Fam/Surg Hx: No changes since H&P Allergies: Allergies No Known Drug Allergies Allergy (Verified 09/17/17 16:26) - Review of Systems ROS: No change since H&P - Vital Signs and I&O's Vital Signs: Temperature 98.4 F Pulse Rate [Left Radial] 78 Pulse Rate 84 Respiratory Rate 18 Blood Pressure [Left Calf] 183/73 Blood Pressure [Left Arm] 122/54 Blood Pressure [Right Calf] 142/51 Blood Pressure [Right Arm] 162/67 Blood Pressure 145/90 O2 Sat by Pulse Oximetry 95 Intake and Output: Intake & Output 09/28/17 09/29/17 09/30/17 10/01/17 11:59 11:59 11:59 11:59 Intake Total 4262 2612 1055 Output Total 1550 Balance 2712 2612 1055 - Physical Exam Oriented: Normal Eyes: Blurred Vision Ear: Normal Nose: Normal Throat: Normal Respiratory: Normal Cardiovascular: Normal. negative: S3, S4, Murmur : Normal Auscultation: Bowel Sounds: Normal Palpation: Normal Tenderness: Diffuse, Suprapubic, Mild Skin: Normal Musculoskeletal: Normal Psychiatric: Normal Mood Description: Calm Affect: Normal Speech Pattern: Clear, Appropriate - Laboratory and Diagnostics Result Diagrams: 09/30/17 17:00 09/30/17 05:20 Labs: 09/28/17 06:31 Stool Stool Culture - Final 09/28/17 06:31 Stool - Final Laboratory WBC 12.0 X10^3/uL (3.6-10.0) H 09/30/17 05:20 RBC 2.97 X10^6/uL (3.5-5.4) L 09/30/17 05:20 Hgb 8.5 g/dL (12.0-16.0) L 09/30/17 17:00 Hct 25.5 % (36.0-47.0) L 09/30/17 17:00 MCV 82.8 fL (80.0-100.0) 09/30/17 05:20 MCH 27.3 pg (27.0-34.0) 09/30/17 05:20 MCHC 33.0 g/dL (33.0-35.0) 09/30/17 05:20 RDW 18.0 % (11.6-16.5) H 09/30/17 05:20 Plt Count 398 X10^3/uL (150.0-450.0) 09/30/17 05:20 Plt Count Comment Adequate (ADEQUATE) 09/29/17 06:03 MPV 9.0 fL (7.4-11.0) 09/30/17 05:20 Neut % (Auto) 74.3 % (42.0-75.0) 09/30/17 05:20 Lymph % (Auto) 14.9 % (21.0-51.0) L 09/30/17 05:20 [place] % (Auto) 9.1 % (0.0-13.0) 09/30/17 05:20 Eos % (Auto) 0.9 % (0.9-2.9) 09/30/17 05:20 Baso % (Auto) 0.8 % (0.2-1.0) 09/30/17 05:20 Neut # (Auto) 8.9 x10^3/uL (2.2-4.8) H 09/30/17 05:20 Lymph # (Auto) 1.8 X10^3/uL (1.3-2.9) 09/30/17 05:20 [place] # (Auto) 1.1 x10^3/uL (0.3-0.8) H 09/30/17 05:20 Eos # (Auto) 0.1 x10^3/uL (0.0-0.2) 09/30/17 05:20 Baso # (Auto) 0.1 X10^3/uL (0.0-0.1) 09/30/17 05:20 Absolute Nucleated RBC 0.1 /100WBC 09/30/17 05:20 Plt Morphology Comment Normal (NORMAL) 09/29/17 06:03 RBC Morphology Normal (NORMAL) 09/29/17 06:03 INR Target Range - 09/28/17 07:00 INR 1.53 (0.8-1.3) H 09/28/17 07:00 APTT 38.3 SECONDS (22.9-36.5) H 09/28/17 07:00 PTT Comment - 09/28/17 07:00 Sodium 145 mmol/L (136-145) 09/30/17 05:20 Corrected Sodium 145 mmol/L (136-145) 09/30/17 05:20 Potassium 3.9 mmol/L (3.5-5.1) 09/30/17 05:20 Chloride 115 mmol/L (98-107) H* 09/30/17 05:20 Carbon Dioxide 22.4 mmol/L (21-32) 09/30/17 05:20 BUN 13 mg/dL (7-18) 09/30/17 05:20 Creatinine 0.82 mg/dL (0.55-1.02) 09/30/17 05:20 Est GFR (MDRD) Af Amer > 60 (>60) 09/30/17 05:20 Est GFR (MDRD) Non-Af > 60 (>60) 09/30/17 05:20 Glucose 115 mg/dL (65-99) H 09/30/17 05:20 Lactic Acid 0.7 mmol/L (0.4-2.0) 09/30/17 11:35 Calcium 7.1 mg/dL (8.5-10.1) L 09/30/17 05:20 Corrected Calcium 9.1 mg/dL (8.5-10.1) 09/30/17 05:20 Magnesium 1.8 mg/dL (1.7-2.9) 09/29/17 06:03 Total Bilirubin 0.10 mg/dL (0.2-1.0) L 09/30/17 05:20 AST 18 Units/L (15-37) 09/30/17 05:20 ALT 13 Units/L (12-78) 09/30/17 05:20 Alkaline Phosphatase 36 Units/L (46-116) L 09/30/17 05:20 Creatine Kinase 23 Units/L (26-192) L 09/28/17 18:57 CK-MB (CK-2) < 1.0 ng/mL (0-4.0) 09/28/17 18:57 CK/CKMB % Calc 4.4 % (<4) 09/28/17 18:57 Troponin I 0.02 ng/mL (0-1.5) 09/28/17 18:57 Total Protein 4.2 g/dL (6.4-8.2) L 09/30/17 05:20 Albumin 1.5 g/dL (3.4-5.0) L 09/30/17 05:20 Globulin 2.7 g/dL (2.5-4.5) 09/30/17 05:20 Albumin/Globulin Ratio 0.6 Ratio (1.1-2.1) L 09/30/17 05:20 Triglycerides 105 mg/dL (0-150) 09/29/17 06:03 Cholesterol 74 mg/dL (0-200) 09/29/17 06:03 LDL Cholesterol, Calc 30 mg/dL (0-100) 09/29/17 06:03 HDL Cholesterol 23 mg/dL (40-60) L 09/29/17 06:03 Cholesterol/HDL Ratio 3.2 (0.0-5.0) 09/29/17 06:03 Specimen Type Clean catch urine 09/28/17 13:57 Urine Color Yellow (YELLOW) 09/28/17 13:57 Urine Appearance Slightly hazy (CLEAR) 09/28/17 13:57 Urine pH 5.0 (5.0 - 8.0) 09/28/17 13:57 Ur Specific [place] 1.020 (1.000-1.030) 09/28/17 13:57 Urine Protein 2+ (NEGATIVE) 09/28/17 13:57 Urine Glucose (UA) Negative (NEGATIVE) 09/28/17 13:57 Urine Ketones Negative (NEGATIVE) 09/28/17 13:57 Urine Occult Blood 3+ (NEGATIVE) 09/28/17 13:57 Urine Nitrite Negative (NEGATIVE) 09/28/17 13:57 Urine Bilirubin Negative (NEGATIVE) 09/28/17 13:57 Urine Urobilinogen Normal (NORMAL) 09/28/17 13:57 Ur Leukocyte Esterase 3+ (NEGATIVE) 09/28/17 13:57 Urine RBC 3-5 /HPF (NONE SEEN) 09/28/17 13:57 Urine WBC 5-10 /HPF (NONE SEEN) 09/28/17 13:57 Ur Squamous Epith Cells Moderate /HPF (NEGATIVE) 09/28/17 13:57 Urine Bacteria Trace /HPF (NEGATIVE) 09/28/17 13:57 Ur Culture Indicated? No/not indicated 09/28/17 13:57 Stool Description 150g black liquid 09/28/17 06:31 Stl Occult Blood (IFOB) Positive (NEGATIVE) A 09/28/17 06:31 Stool for White Cells Positive (NEGATIVE) A 09/28/17 06:31 Stl C. diff Tox B Gene Positive (NEGATIVE) A 09/28/17 06:31 Stl C. diff [id number] Negative (NEGATIVE) 09/28/17 06:31 Cryptosporid parvum Ag Negative (NEGATIVE) 09/28/17 06:31 E. histolytica Antigen Negative (NEGATIVE) 09/28/17 06:31 Giardia lamblia Ag Negative (NEGATIVE) 09/28/17 06:31 Blood Type A POSITIVE 09/28/17 07:00 Antibody Screen Negative 09/28/17 07:00 Crossmatch See Detail 09/28/17 07:00 - Plan (1) C. difficile colitis Status: Acute Plan: FLAGYL 500MG PO Q6H, NORMAL SALINE AT 125ML/HR, 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 (2) Urinary tract infection Status: Acute Qualifiers: Urinary tract infection type: acute cystitis Hematuria presence: with hematuria Qualified Code(s): N30.01 - Acute cystitis with hematuria Plan: ROCEPHIN 1GM IV DAILY, NORMAL SALINE AT 125ML/HR, 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 (3) Anemia Status: Acute Qualifiers: Anemia type: iron deficiency Iron deficiency anemia type: unspecified iron deficiency Qualified Code(s): D50.9 - Iron deficiency anemia, unspecified Plan: MONITOR H&H (4) Chest pain Status: Acute Qualifiers: Chest pain type: unspecified Qualified Code(s): R07.9 - Chest pain, unspecified Plan: SERIAL CARDIAC ENZYMES AND EKG, SCREENER OPERATOR, 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
[2017-09-30] MEDS: PHENERGAN INJ 25 MG IV PRN (22:31)
[2017-10-01] MEDS: NS 1000 ML 1,000 ML IV SCH ×5 (05:06→23:53)
[2017-10-01] MEDS: PROTONIX INJ 40 MG VIAL 80 MG in NS 100 ML IV 80 ML IV SCH ×2 (05:06→14:03)
[2017-10-01] MEDS: FLAGYL TAB 500 MG PO SCH ×4 (05:06→22:11)
[2017-10-01] MEDS: REQUIP PO SCH ×3 (05:06→21:03)
[2017-10-01 05:53] LABS: BASOPHILS # (AUTO) 0.1 X10^3/uL (0.0-0.1); BASOPHILS % (AUTO) 0.5 % (0.2-1.0); EOSINOPHILS % (AUTO) 0.1 % (0.9-2.9); HEMATOCRIT 26.7 % (36.0-47.0); HEMOGLOBIN 8.6 g/dL (12.0-16.0); LYMPHOCYTES # (AUTO) 1.6 X10^3/uL (1.3-2.9); LYMPHOCYTES % (AUTO) 10.3 % (21.0-51.0); MEAN CORPUSCULAR HGB CONC 32.3 g/dL (33.0-35.0); MEAN CORPUSCULAR VOLUME 83.5 fL (80.0-100.0); MONOCYTES # (AUTO) 1.1 x10^3/uL (0.3-0.8); MONOCYTES % (AUTO) 6.9 % (0.0-13.0); NEUTROPHILS # (AUTO) 12.9 x10^3/uL (2.2-4.8); NEUTROPHILS % (AUTO) 82.2 % (42.0-75.0); PLATELET COUNT 466 X10^3/uL (150.0-450.0); RED CELL DISTRIBUTION WIDTH 18.8 % (11.6-16.5); WHITE BLOOD COUNT 15.7 X10^3/uL (3.6-10.0)
[2017-10-01 06:21] LABS: ALANINE AMINOTRANSFERASE 12 Units/L (12-78); ALBUMIN 1.4 g/dL (3.4-5.0); ALKALINE PHOSPHATASE 33 Units/L (46-116); ASPARTATE AMINO TRANSFERASE 15 Units/L (15-37); BLOOD UREA NITROGEN 12 mg/dL (7-18); CALCIUM 6.8 mg/dL (8.5-10.1); CARBON DIOXIDE 19.2 mmol/L (21-32); COR CA(FOR HYPOALB) 8.9 mg/dL (8.5-10.1); COR NA(FOR HYPERGLY) 145 mmol/L (136-145); CREATININE 0.93 mg/dL (0.55-1.02); SODIUM 145 mmol/L (136-145); TOTAL PROTEIN 3.9 g/dL (6.4-8.2); eGFR BLACK RACES > 60 (>60); eGFR NON BLACK RACES > 60 (>60)
[2017-10-01 06:51] LABS: CHLORIDE 116 mmol/L (98-107)
[2017-10-01 07:55] LABS: ANISOCYTOSIS 1+; PLATELET MORPHOLOGY COMMENT NORMAL (NORMAL)
[2017-10-01] MEDS: ROCEPHIN VIAL 1 GM 1 GM in NS 100 ML IV + SPIKE MINIBAG* 100 ML IV SCH (08:49)
[2017-10-01] MEDS: PHENERGAN INJ 25 MG IV PRN (09:10)
[2017-10-01] MEDS: CORDARONE TAB 200 MG PO SCH (09:40)
[2017-10-01] MEDS: ARICEPT TAB 10 MG PO SCH (09:40)
[2017-10-01] MEDS ORDERED: PHENERGAN INJ 25 MG IV PRN (09:40)
[2017-10-01] MEDS: IMODIUM CAP 2 MG PO SCH ×4 (09:41→20:56)
[2017-10-01] MEDS: HEMOCYTE-PLUS PO SCH (09:41)
[2017-10-01] MEDS: PEPCID TAB 20 MG PO SCH ×2 (09:41→20:58)
[2017-10-01] MEDS: NAMENDA TAB 10 MG PO SCH ×2 (09:41→20:58)
[2017-10-01] MEDS: SINGULAIR TAB 10 MG PO SCH (09:41)
[2017-10-01] MEDS: PULMICORT NEB TX 0.5 MG NEB SCH (09:45)
[2017-10-01] MEDS: DUONEB 0.5 MG/3 MG NEB PRN ×2 (09:46→17:03)
[2017-10-01] MEDS: ZOFRAN INJ 4 MG VIAL IVP PRN ×2 (12:02→19:34)
[2017-10-01] MEDS: PRAVACHOL PO SCH (20:56)
[2017-10-01] MEDS: NEURONTIN CAP 300 MG PO SCH (20:56)
[2017-10-02] MEDS: PULMICORT NEB TX 0.5 MG NEB SCH ×3 (00:26→21:18)
[2017-10-02] MEDS: PROTONIX INJ 40 MG VIAL 80 MG in NS 100 ML IV 80 ML IV SCH ×3 (00:48→21:53)
[2017-10-02] MEDS: NS 1000 ML 1,000 ML IV SCH ×3 (03:31→16:11)
[2017-10-02] MEDS: FLAGYL TAB 500 MG PO SCH ×4 (05:21→22:00)
[2017-10-02] MEDS: REQUIP PO SCH ×3 (05:21→21:52)
[2017-10-02 05:59] LABS: BASOPHILS # (AUTO) 0.1 X10^3/uL (0.0-0.1); BASOPHILS % (AUTO) 0.3 % (0.2-1.0); HEMATOCRIT 28.9 % (36.0-47.0); HEMOGLOBIN 9.3 g/dL (12.0-16.0); LYMPHOCYTES # (AUTO) 3.2 X10^3/uL (1.3-2.9); LYMPHOCYTES % (AUTO) 11.9 % (21.0-51.0); MEAN CORPUSCULAR HEMOGLOBIN 27.1 pg (27.0-34.0); MEAN CORPUSCULAR HGB CONC 32.2 g/dL (33.0-35.0); MEAN CORPUSCULAR VOLUME 84.2 fL (80.0-100.0); MEAN PLATELET VOLUME 9.3 fL (7.4-11.0); MONOCYTES # (AUTO) 2.1 x10^3/uL (0.3-0.8); MONOCYTES % (AUTO) 7.8 % (0.0-13.0); NEUTROPHILS # (AUTO) 21.5 x10^3/uL (2.2-4.8); PLATELET COUNT 544 X10^3/uL (150.0-450.0); RED BLOOD COUNT 3.43 X10^6/uL (3.5-5.4); RED CELL DISTRIBUTION WIDTH 19.2 % (11.6-16.5); WHITE BLOOD COUNT 26.8 X10^3/uL (3.6-10.0)
[2017-10-02 06:02] LABS: ALANINE AMINOTRANSFERASE 12 Units/L (12-78); ALBUMIN 1.5 g/dL (3.4-5.0); ALKALINE PHOSPHATASE 37 Units/L (46-116); ASPARTATE AMINO TRANSFERASE 18 Units/L (15-37); BLOOD UREA NITROGEN 14 mg/dL (7-18); CALCIUM 6.9 mg/dL (8.5-10.1); CARBON DIOXIDE 16.7 mmol/L (21-32); COR CA(FOR HYPOALB) 8.9 mg/dL (8.5-10.1); COR NA(FOR HYPERGLY) 147 mmol/L (136-145); SODIUM 146 mmol/L (136-145); TOTAL PROTEIN 4.2 g/dL (6.4-8.2); eGFR BLACK RACES > 60 (>60); eGFR NON BLACK RACES 51 (>60)
[2017-10-02 06:09] LABS: CHLORIDE 116 mmol/L (98-107)
[2017-10-02 06:49] LABS: BAND NEUTROPHILS % 3 % (0-10); PLATELET MORPHOLOGY COMMENT NORMAL (NORMAL)
--- NOTE | 2017-10-02 06:52 | RAD ---
HISTORY: Shortness of breath, wheezing Study: Single-view chest Comparison: 09/17/2017. Findings: There are surgical clips present in the left axilla. The trachea is midline. The heart size is normal . Improved aeration is present in both lower lobes. Interstitial markings have improved compared to p rior studies also. Small amount of left pleural fluid is not excluded. IMPRESSION: Interval improvement in aeration in both lower lobes. Interstitial markings have improved also. Reported By:
[2017-10-02] MEDS: DUONEB 0.5 MG/3 MG NEB PRN ×4 (08:15→21:18)
[2017-10-02] MEDS: PEPCID TAB 20 MG PO SCH ×2 (09:24→21:51)
[2017-10-02] MEDS: ARICEPT TAB 10 MG PO SCH (09:24)
[2017-10-02] MEDS: CORDARONE TAB 200 MG PO SCH (09:25)
[2017-10-02] MEDS: NAMENDA TAB 10 MG PO SCH ×2 (09:26→21:52)
[2017-10-02] MEDS: IMODIUM CAP 2 MG PO SCH ×4 (09:26→21:51)
[2017-10-02] MEDS: SINGULAIR TAB 10 MG PO SCH (09:27)
[2017-10-02] MEDS: ROCEPHIN VIAL 1 GM 1 GM in NS 100 ML IV + SPIKE MINIBAG* 100 ML IV SCH (09:27)
[2017-10-02] MEDS: HEMOCYTE-PLUS PO SCH (09:29)
[2017-10-02] MEDS: ALBUMIN HUMAN 25%- 100ML 100 ML IV SCH (10:24)
--- NOTE | 2017-10-02 18:10 | PCM.PROG ---
Progress Note - Progress Note for Day of Date: 09/30/17 - Subjective Subjective: IS BEING TREATED FOR COLITIS, URINARY TRACT INFECTION, C- DIFF, AND ANEMIA. TODAY, SHE IS ALERT AND ORIENTED, SITTING UP IN THE BED ON MORNING ROUNDS. SHE IS NOTED WITH COMPLAINTS OF GENERALIZED EDEMA, NAUSEA, AND VOMITING. SHE CONTNUES TO HAVE LOOSE BLACK STOOLS. SHE DENIES CHEST PAIN THIS MORNING. HER VITALS THIS MORNING ARE 98.1-72-14-99%-108/49. LABS WERE OBTAINED. ABNORMAL LAB VALUES INCLUDE THE FOLLOWING: WBC 12.0, RBC 2.97, HGB 8.1, HCT 24.6 , CHLORIDE 115, GLUCOSE 115, CALCIUM 7.1, TOTAL BILI 0.10, ALK PHOS 36, TOTAL PROTEIN 4.2, ALBUMIN 1.5. PATIENT HAD AN EGD AND COLONOSCOPY AT THE BEGINNING OF THE MONTH. EGD REVEALED MODERATE GASTRITIS AND DISTAL ESOPHAGITIS WITH NO ACTIVE UPPER GI BLEEDING NOTED. COLONOSCOPY REVEALED A COLON POLYP, SIGMOID DIVERTICULOSIS, AND INTERNAL HEMORRHOIDS. WE WILL CONSULT WHEN [place] IS [place] FOR ANY RECOMMENDATIONS. TODAY, WE WILL CONTINUE PO FLAGYL, FOR C-DIFF AND COLITIS AND ROCEPHIN FOR URINARY TRACT INFECTION. WE WILL 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 HER HEMOGLOBIN AND TRANSFUSE PACKED RED BLOOD CELLS IF NEEDED. OTHERWISE, WE PLAN TO FOLLOW UP WITH AM LABS AND 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 PATIENT. - Past Medical Family Social History Past Med/Fam/Surg Hx: No changes since H&P Allergies: Allergies No Known Drug Allergies Allergy (Verified 09/17/17 16:26) - Review of Systems ROS: No change since H&P - Vital Signs and I&O's Vital Signs: Temperature 98.6 F Pulse Rate [Left Radial] 86 Pulse Rate 95 Respiratory Rate 20 Blood Pressure [Left Calf] 183/73 Blood Pressure [Left Arm] 140/40 Blood Pressure [Right Calf] 142/51 Blood Pressure [Right Arm] 162/67 Blood Pressure 145/90 O2 Sat by Pulse Oximetry 96 Intake and Output: Intake & Output 09/30/17 10/01/17 10/02/17 10/03/17 11:59 11:59 11:59 11:59 Intake Total 2612 2975 2740 25 Balance 2612 2975 2740 25 - Physical Exam Oriented: Normal Eyes: Blurred Vision Ear: Normal Nose: Normal Throat: Normal Respiratory: Normal Cardiovascular: Normal. negative: S3, S4, Murmur : Normal Auscultation: Bowel Sounds: Normal Tenderness: Diffuse, Suprapubic, Mild Skin: Normal Musculoskeletal: Normal Psychiatric: Normal Mood Description: Calm Affect: Normal Speech Pattern: Clear, Appropriate - Laboratory and Diagnostics Result Diagrams: 10/02/17 04:40 10/02/17 04:40 Labs: 09/28/17 06:31 Stool Stool Culture - Final 09/28/17 06:31 Stool - Final Laboratory WBC 26.8 X10^3/uL (3.6-10.0) H D 10/02/17 04:40 RBC 3.43 X10^6/uL (3.5-5.4) L 10/02/17 04:40 Hgb 9.3 g/dL (12.0-16.0) L 10/02/17 04:40 Hct 28.9 % (36.0-47.0) L 10/02/17 04:40 MCV 84.2 fL (80.0-100.0) 10/02/17 04:40 MCH 27.1 pg (27.0-34.0) 10/02/17 04:40 MCHC 32.2 g/dL (33.0-35.0) L 10/02/17 04:40 RDW 19.2 % (11.6-16.5) H 10/02/17 04:40 Plt Count 544 X10^3/uL (150.0-450.0) H 10/02/17 04:40 Plt Count Comment Increased (ADEQUATE) A 10/02/17 04:40 MPV 9.3 fL (7.4-11.0) 10/02/17 04:40 Neut % (Auto) 80.0 % (42.0-75.0) H 10/02/17 04:40 Lymph % (Auto) 11.9 % (21.0-51.0) L 10/02/17 04:40 [place] % (Auto) 7.8 % (0.0-13.0) 10/02/17 04:40 Eos % (Auto) 0.0 % (0.9-2.9) L 10/02/17 04:40 Baso % (Auto) 0.3 % (0.2-1.0) 10/02/17 04:40 Neut # (Auto) 21.5 x10^3/uL (2.2-4.8) H 10/02/17 04:40 Lymph # (Auto) 3.2 X10^3/uL (1.3-2.9) H 10/02/17 04:40 [place] # (Auto) 2.1 x10^3/uL (0.3-0.8) H 10/02/17 04:40 Eos # (Auto) 0.0 x10^3/uL (0.0-0.2) 10/02/17 04:40 Baso # (Auto) 0.1 X10^3/uL (0.0-0.1) 10/02/17 04:40 Absolute Nucleated RBC 0.0 /100WBC 10/02/17 04:40 Total Counted 100 10/02/17 04:40 Neutrophils % (Manual) 83 % (39-76) H 10/02/17 04:40 Band Neutrophils % 3 % (0-10) 10/02/17 04:40 Lymphocytes % (Manual) 11 % (13-43) L 10/02/17 04:40 Monocytes % (Manual) 3 % (4-9) L 10/02/17 04:40 Plt Morphology Comment Normal (NORMAL) 10/02/17 04:40 RBC Morphology Normal (NORMAL) 10/02/17 04:40 Anisocytosis 1+ A 10/01/17 04:25 INR Target Range - 09/28/17 07:00 INR 1.53 (0.8-1.3) H 09/28/17 07:00 APTT 38.3 SECONDS (22.9-36.5) H 09/28/17 07:00 PTT Comment - 09/28/17 07:00 Sodium 146 mmol/L (136-145) H 10/02/17 04:40 Corrected Sodium 147 mmol/L (136-145) H 10/02/17 04:40 Potassium 3.6 mmol/L (3.5-5.1) 10/02/17 04:40 Chloride 116 mmol/L (98-107) H* 10/02/17 04:40 Carbon Dioxide 16.7 mmol/L (21-32) L 10/02/17 04:40 BUN 14 mg/dL (7-18) 10/02/17 04:40 Creatinine 1.10 mg/dL (0.55-1.02) H 10/02/17 04:40 Est GFR (MDRD) Af Amer > 60 (>60) 10/02/17 04:40 Est GFR (MDRD) Non-Af 51 (>60) L 10/02/17 04:40 Glucose 122 mg/dL (65-99) H 10/02/17 04:40 Lactic Acid 0.7 mmol/L (0.4-2.0) 09/30/17 11:35 Calcium 6.9 mg/dL (8.5-10.1) L 10/02/17 04:40 Corrected Calcium 8.9 mg/dL (8.5-10.1) 10/02/17 04:40 Magnesium 1.8 mg/dL (1.7-2.9) 09/29/17 06:03 Total Bilirubin 0.20 mg/dL (0.2-1.0) 10/02/17 04:40 AST 18 Units/L (15-37) 10/02/17 04:40 ALT 12 Units/L (12-78) 10/02/17 04:40 Alkaline Phosphatase 37 Units/L (46-116) L 10/02/17 04:40 Creatine Kinase 23 Units/L (26-192) L 09/28/17 18:57 CK-MB (CK-2) < 1.0 ng/mL (0-4.0) 09/28/17 18:57 CK/CKMB % Calc 4.4 % (<4) 09/28/17 18:57 Troponin I 0.02 ng/mL (0-1.5) 09/28/17 18:57 Total Protein 4.2 g/dL (6.4-8.2) L 10/02/17 04:40 Albumin 1.5 g/dL (3.4-5.0) L 10/02/17 04:40 Globulin 2.7 g/dL (2.5-4.5) 10/02/17 04:40 Albumin/Globulin Ratio 0.6 Ratio (1.1-2.1) L 10/02/17 04:40 Triglycerides 105 mg/dL (0-150) 09/29/17 06:03 Cholesterol 74 mg/dL (0-200) 09/29/17 06:03 LDL Cholesterol, Calc 30 mg/dL (0-100) 09/29/17 06:03 HDL Cholesterol 23 mg/dL (40-60) L 09/29/17 06:03 Cholesterol/HDL Ratio 3.2 (0.0-5.0) 09/29/17 06:03 Specimen Type Clean catch urine 09/28/17 13:57 Urine Color Yellow (YELLOW) 09/28/17 13:57 Urine Appearance Slightly hazy (CLEAR) 09/28/17 13:57 Urine pH 5.0 (5.0 - 8.0) 09/28/17 13:57 Ur Specific [place] 1.020 (1.000-1.030) 09/28/17 13:57 Urine Protein 2+ (NEGATIVE) 09/28/17 13:57 Urine Glucose (UA) Negative (NEGATIVE) 09/28/17 13:57 Urine Ketones Negative (NEGATIVE) 09/28/17 13:57 Urine Occult Blood 3+ (NEGATIVE) 09/28/17 13:57 Urine Nitrite Negative (NEGATIVE) 09/28/17 13:57 Urine Bilirubin Negative (NEGATIVE) 09/28/17 13:57 Urine Urobilinogen Normal (NORMAL) 09/28/17 13:57 Ur Leukocyte Esterase 3+ (NEGATIVE) 09/28/17 13:57 Urine RBC 3-5 /HPF (NONE SEEN) 09/28/17 13:57 Urine WBC 5-10 /HPF (NONE SEEN) 09/28/17 13:57 Ur Squamous Epith Cells Moderate /HPF (NEGATIVE) 09/28/17 13:57 Urine Bacteria Trace /HPF (NEGATIVE) 09/28/17 13:57 Ur Culture Indicated? No/not indicated 09/28/17 13:57 Stool Description 150g black liquid 09/28/17 06:31 Stl Occult Blood (IFOB) Positive (NEGATIVE) A 09/28/17 06:31 Stool for White Cells Positive (NEGATIVE) A 09/28/17 06:31 Stl C. diff Tox B Gene Positive (NEGATIVE) A 09/28/17 06:31 Stl C. diff [id number] Negative (NEGATIVE) 09/28/17 06:31 Cryptosporid parvum Ag Negative (NEGATIVE) 09/28/17 06:31 E. histolytica Antigen Negative (NEGATIVE) 09/28/17 06:31 Giardia lamblia Ag Negative (NEGATIVE) 09/28/17 06:31 Blood Type A POSITIVE 09/28/17 07:00 Antibody Screen Negative 09/28/17 07:00 Crossmatch See Detail 09/28/17 07:00 - Plan (1) C. difficile colitis Status: Acute Plan: FLAGYL 500MG PO Q6H, NORMAL SALINE AT 125ML/HR, 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 (2) Urinary tract infection Status: Acute Qualifiers: Urinary tract infection type: acute cystitis Hematuria presence: with hematuria Qualified Code(s): N30.01 - Acute cystitis with hematuria Plan: ROCEPHIN 1GM IV DAILY, NORMAL SALINE AT 125ML/HR, 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 (3) Anemia Status: Acute Qualifiers: Anemia type: iron deficiency Iron deficiency anemia type: unspecified iron deficiency Qualified Code(s): D50.9 - Iron deficiency anemia, unspecified Plan: MONITOR H&H (4) Chest pain Status: Acute Qualifiers: Chest pain type: unspecified Qualified Code(s): R07.9 - Chest pain, unspecified Plan: SERIAL CARDIAC ENZYMES AND EKG, 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
[2017-10-02] MEDS: ZOFRAN INJ 4 MG VIAL IVP PRN (20:50)
[2017-10-02] MEDS: PRAVACHOL PO SCH (21:51)
[2017-10-02] MEDS: NEURONTIN CAP 300 MG PO SCH (21:51)
[2017-10-03] MEDS: NS 1000 ML 1,000 ML IV SCH ×2 (01:28→16:14)
[2017-10-03] MEDS: FORTAZ or TAZICEF INJ 1 GM in NS 100 ML IV + SPIKE MINIBAG* 100 ML IV SCH ×3 (01:44→21:41)
[2017-10-03] MEDS: REQUIP PO SCH ×3 (05:15→21:41)
[2017-10-03] MEDS: FLAGYL TAB 500 MG PO SCH ×4 (05:15→22:28)
[2017-10-03 06:22] LABS: BASOPHILS # (AUTO) 0.2 X10^3/uL (0.0-0.1); BASOPHILS % (AUTO) 0.6 % (0.2-1.0); HEMATOCRIT 25.8 % (36.0-47.0); HEMOGLOBIN 8.5 g/dL (12.0-16.0); LYMPHOCYTES # (AUTO) 2.2 X10^3/uL (1.3-2.9); LYMPHOCYTES % (AUTO) 8.2 % (21.0-51.0); MEAN CORPUSCULAR HEMOGLOBIN 27.4 pg (27.0-34.0); MEAN CORPUSCULAR HGB CONC 32.9 g/dL (33.0-35.0); MEAN CORPUSCULAR VOLUME 83.1 fL (80.0-100.0); MEAN PLATELET VOLUME 9.2 fL (7.4-11.0); MONOCYTES # (AUTO) 2.2 x10^3/uL (0.3-0.8); MONOCYTES % (AUTO) 8.3 % (0.0-13.0); NEUTROPHILS # (AUTO) 22.3 x10^3/uL (2.2-4.8); NEUTROPHILS % (AUTO) 82.9 % (42.0-75.0); PLATELET COUNT 462 X10^3/uL (150.0-450.0); RED CELL DISTRIBUTION WIDTH 19.3 % (11.6-16.5); WHITE BLOOD COUNT 26.8 X10^3/uL (3.6-10.0)
[2017-10-03] MEDS: PROTONIX INJ 40 MG VIAL 80 MG in NS 100 ML IV 80 ML IV SCH ×2 (06:33→16:48)
[2017-10-03 07:02] LABS: ALBUMIN 1.8 g/dL (3.4-5.0); CALCIUM 6.9 mg/dL (8.5-10.1); CARBON DIOXIDE 17.7 mmol/L (21-32); COR CA(FOR HYPOALB) 8.7 mg/dL (8.5-10.1); CREATININE 1.28 mg/dL (0.55-1.02); TOTAL PROTEIN 4.3 g/dL (6.4-8.2)
[2017-10-03 07:06] LABS: BAND NEUTROPHILS % 2 % (0-10); PLATELET MORPHOLOGY COMMENT NORMAL (NORMAL)
[2017-10-03 07:07] LABS: CRENATED RBC 1+
--- NOTE | 2017-10-03 07:43 | RAD ---
Exam: Chest, frontal view dated 10/03/2017 at 7:08 a.m. History: 82-year-old female with shortness of breath and wheezing Comparison: Previous chest radiograph from 10/02/2017 Findings: Heart size and pulmonary vasculature are within normal limits. Since the previous exam, increasing op acity has developed at the left base. This may represent a combination of atelectasis//infiltrate and left effusion. Small effusion is suspected on the right as well. Surgical clips are again seen in th e left axillary region. Impression: Increasing opacity at the left base may represent combination of atelectasis/infiltrate and left effu gabo. Reported By:
[2017-10-03] MEDS: PULMICORT NEB TX 0.5 MG NEB SCH ×2 (09:00→21:15)
--- NOTE | 2017-10-03 09:31 | DR.CONSULT ---
Consult - Consultation for Day of: Date: 10/02/17 - Chief Complaint Chief Complaint: Patient referred for Colitis and blood in stool. Pateint with complaints of diarrhea and melena. - Allergies Allergies/Adverse Reactions: Allergies Allergy/AdvReac Type Severity Reaction Status Date / Time No Known Drug Allergies Allergy Verified 09/17/17 16:26 - History of Present Illness History of Present Illness: Patient is a 82 female who was referred for Colitis and blood in stool. Pateint with complaints of diarrhea and melena for 2 weeks. Patient states she has also had some dysphagia and dyspepsia at times. She denies abdominal pain, constipation and hematochezia. Last colonoscopy was which showed sigmoid diverticulosis, internal hemorrhoids and a 1cm tubular adenomatous colon polyp. Last EGD was 09/12/17 which showed moderate gastritits and distal esophagitis. Stool Positive for C-Diff and Blood. Hgb stable at 9.3. Abdomen and pelvis CT without contrast showed findings consistent with acute lynch colitis likely inflammatory or infectious with material of increased attentuation of the mucosa in the cecum, ascending, proximal and transverse colon possibel representing hemorrhage in this patient with melena. - Past Medical History Past Medical History: Asthma, COPD, Coronary Artery Disease, Dyslipidemia, Hypertension, SC Additional Medical History: Breast and uterine cancer - Past Surgical History Surgical History: Cholecystectomy, Hysterectomy, Mastectomy - Family History Family Medical History: Diabetes Mellitus - Social History Does patient currently use any type of tobacco product: Yes Have you used tobacco products in the last 12 months: Yes Type of Tobacco Use: Cigarettes Does any household member use tobacco: No Alcohol Use: None Drug Use: None - Medications Home Medications: Budesonide 0.25 mg IH BID 09/28/17 [History Confirmed 09/28/17] Famotidine [Famotidine] 40 mg PO BID 09/28/17 [History Confirmed 09/28/17] Hyoscyamine Sulfate [Levsin Syrup] 15 ml PO TID PRN 09/28/17 [History Confirmed 09/28/17] Ipratropium/Albuterol Nebule [DUONEB 0.5 MG/3 MG NEBULE *] 1 nebule NEB QID PRN 09/28/17 [History Confirmed 09/28/17] Loperamide HCl [Imodium A-D] 2 mg PO QID 09/28/17 [History Confirmed 09/28/17] Naproxen [Naproxen] 1 tab PO BID 09/28/17 [History Confirmed 09/28/17] - Review of Systems Constitutional: Weakness Eyes: No Symptoms Reported ENT: No Symptoms Reported Respiratory: No Symptoms Reported Cardiovascular: No Symptoms Reported Gastrointestinal: Diarrhea, Melena Musculoskeletal: No Symptoms Reported Skin: No Symptoms Reported Neurological: No Symptoms Reported - Physical Exam Vital Signs: Temperature 98.8 F Pulse Rate [Left Radial] 85 Pulse Rate 94 Respiratory Rate 16 Blood Pressure [Left Calf] 183/73 Blood Pressure [Left Arm] 110/51 Blood Pressure [Right Calf] 142/51 Blood Pressure [Right Arm] 162/67 Blood Pressure 145/90 O2 Sat by Pulse Oximetry 87 Oriented: Normal Eyes: Normal Ear: Normal Nose: Normal Throat: Normal Respiratory: Clear Throughout Cardiovascular: Normal Auscultation: Bowel Sounds: Normal Palpation: Normal, Other (no distention). negative: Spleen Enlarged, Liver Enlarged, Mass Pulsatile Tenderness: Normal Skin: Normal Musculoskeletal: Normal Psychiatric: Normal Mood Description: Calm Affect: Normal Speech Pattern: Clear - Plan Plan: Assessment. 1. Severe Iron deficiency Anemia. 2. C-Diff colitis. Plan. 1. Monitor Hgb, cont protonix IV, will need capsule endoscopy as outpatient. 2. Cont flagyl. Plan reviewed with Dr. junior
[2017-10-03] MEDS ORDERED: SALINE 3% 15 ML NEB TX ONE (09:43)
[2017-10-03] MEDS: LEVAQUIN PREMIX IV 250 MG 250 MG/50 ML BAG IV SCH (09:43)
[2017-10-03] MEDS: ALBUMIN HUMAN 25%- 100ML 100 ML IV SCH (09:43)
[2017-10-03] MEDS: IMODIUM CAP 2 MG PO SCH ×4 (09:45→21:42)
[2017-10-03] MEDS: HEMOCYTE-PLUS PO SCH (09:45)
[2017-10-03] MEDS: PEPCID TAB 20 MG PO SCH ×2 (09:45→21:42)
[2017-10-03] MEDS: CORDARONE TAB 200 MG PO SCH (09:45)
[2017-10-03] MEDS: ARICEPT TAB 10 MG PO SCH (09:46)
[2017-10-03] MEDS: SINGULAIR TAB 10 MG PO SCH (09:46)
[2017-10-03] MEDS: NAMENDA TAB 10 MG PO SCH ×2 (09:46→21:42)
[2017-10-03 10:07] LABS: ABG ALLEN TEST POS; ABG BASE EXCESS -6.9 mmol/L (-2.0-2.0); ABG HCO3 17.5 mmol/L (22-26)
[2017-10-03] MEDS: ZOFRAN INJ 4 MG VIAL IVP PRN ×2 (10:47→19:24)
[2017-10-03] MEDS: LASIX IVP SCH ×2 (10:47→21:41)
[2017-10-03 11:24] LABS: BILIRUBIN,URINE NEGATIVE (NEGATIVE); BLOOD/HEMOGLOBIN,URINE 1+ (NEGATIVE); GLUCOSE, URINE NEGATIVE (NEGATIVE); KETONES,URINE NEGATIVE (NEGATIVE); LEUKOCYTE ESTERASE ,URINE 2+ (NEGATIVE); NITRITES,URINE POSITIVE (NEGATIVE); PROTEIN,URINE 2+ (NEGATIVE); UROBILINOGEN,URINE NORMAL (NORMAL)
[2017-10-03 11:53] LABS: APPEARANCE,URINE HAZY (CLEAR); COLOR,URINE AMBER (YELLOW)
[2017-10-03 11:57] LABS: BACTERIA,URINE 1+ /HPF (NEGATIVE); HYALINE CASTS, URINE MODERATE /LPF (NEGATIVE); RBC,URINE 0-2 /HPF (NONE SEEN); SQUAMOUS EPITHELIAL CELL,UR FEW /HPF (NEGATIVE)
[2017-10-03 11:58] LABS: COARSE GRANULAR CASTS,URINE FEW /HPF (NEGATIVE)
[2017-10-03 11:58] LABS: CKMB % 1.3 % (<4); CREATINE KINASE MB 4.8 ng/mL (0-4.0); TROPONIN I 0.03 ng/mL (0-1.5)
[2017-10-03] MEDS: DUONEB 0.5 MG/3 MG NEB PRN (13:00)
[2017-10-03] MEDS: DUONEB 0.5 MG/3 MG NEB SCH ×2 (16:44→21:15)
--- NOTE | 2017-10-03 19:45 | PCM.PROG ---
Progress Note - Progress Note for Day of Date: 10/01/17 - Subjective Subjective: IS BEING TREATED FOR COLITIS, URINARY TRACT INFECTION, C- DIFF, AND ANEMIA. TODAY, SHE IS ALERT AND ORIENTED, SITTING UP IN THE BED ON MORNING ROUNDS. SHE CONTINUES WITH COMPLAINTS OF GENERALIZED WEAKNESS AND NAUSEA. STAFF REPORTS THAT SHE CONTINUES WITH LOOSE STOOLS. ON EXAMINATION, HEART IS REGULAR IN RATE AND RHYTHM. BILATERAL LUNGS ARE NOTED WITH DIMINISHED LUNG SOUNDS THROGHOUT. ABDOMEN IS ROUND, SOFT, AND NOTED WITH MILD, DIFFUSE TENDERNESS TO PALPATION. NORMAL BOWEL SOUNDS ARE NOTED IN ALL QUADRANTS. VITALS THIS MORNING ARE 99.1-83-20-93%-115/51. LABS WERE OBTAINED. ABNORMAL LAB VALUES INCLUDE THE FOLLOWING: WBC 15.7, RBC 3.20, HGB 8.6, HCT 26.7, CHLORIDE 116, CARBON DIOXIDE 19.2, GLUCOSE 119, CALCIUM 6.8, TOTAL BILI 0.10, ALKALINE PHOSPHATASE 33, TOTAL PROTEIN 3.9, ALBUMIN 1.4. TODAY, WE WILL CONTINUE PO FLAGYL, FOR C-DIFF AND COLITIS AND ROCEPHIN FOR URINARY TRACT INFECTION. WE WILL CONSULT WITH TOMORROW. WE WILL 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 HER HEMOGLOBIN AND TRANSFUSE PACKED RED BLOOD CELLS IF NEEDED. OTHERWISE, WE PLAN TO FOLLOW UP WITH AM LABS AND 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 PATIENT. - Past Medical Family Social History Past Med/Fam/Surg Hx: No changes since H&P Allergies: Allergies No Known Drug Allergies Allergy (Verified 09/17/17 16:26) - Review of Systems ROS: No change since H&P - Vital Signs and I&O's Vital Signs: Temperature 100.7 F Pulse Rate [Left Radial] 85 Pulse Rate 84 Respiratory Rate 20 Blood Pressure [Left Calf] 183/73 Blood Pressure [Left Arm] 113/51 Blood Pressure [Right Calf] 142/51 Blood Pressure [Right Arm] 162/67 Blood Pressure 145/90 O2 Sat by Pulse Oximetry 94 Intake and Output: Intake & Output 10/01/17 10/02/17 10/03/17 10/04/17 11:59 11:59 11:59 11:59 Intake Total 2975 2740 645 0 Output Total 1900 Balance 2975 2740 645 -1900 - Physical Exam Oriented: Normal Eyes: Normal Ear: Normal Nose: Normal Throat: Normal Respiratory: Generalized, Diminished Cardiovascular: Normal : Normal Auscultation: Bowel Sounds: Normal Palpation: Normal Tenderness: Diffuse, Mild. negative: Rebound, Guarding, Rigidity Skin: Normal Musculoskeletal: Normal Psychiatric: Normal Mood Description: Calm Affect: Normal Speech Pattern: Clear - Laboratory and Diagnostics Result Diagrams: 10/03/17 05:35 10/03/17 05:35 Labs: 10/03/17 10:14 Sputum - Expectorated Sputum - Final 09/28/17 06:31 Stool Stool Culture - Final 09/28/17 06:31 Stool - Final Laboratory WBC 26.8 X10^3/uL (3.6-10.0) H 10/03/17 05:35 RBC 3.10 X10^6/uL (3.5-5.4) L 10/03/17 05:35 Hgb 8.5 g/dL (12.0-16.0) L 10/03/17 05:35 Hct 25.8 % (36.0-47.0) L 10/03/17 05:35 MCV 83.1 fL (80.0-100.0) 10/03/17 05:35 MCH 27.4 pg (27.0-34.0) 10/03/17 05:35 MCHC 32.9 g/dL (33.0-35.0) L 10/03/17 05:35 RDW 19.3 % (11.6-16.5) H 10/03/17 05:35 Plt Count 462 X10^3/uL (150.0-450.0) H 10/03/17 05:35 Plt Count Comment Increased (ADEQUATE) A 10/03/17 05:35 MPV 9.2 fL (7.4-11.0) 10/03/17 05:35 Neut % (Auto) 82.9 % (42.0-75.0) H 10/03/17 05:35 Lymph % (Auto) 8.2 % (21.0-51.0) L 10/03/17 05:35 [place] % (Auto) 8.3 % (0.0-13.0) 10/03/17 05:35 Eos % (Auto) 0.0 % (0.9-2.9) L 10/03/17 05:35 Baso % (Auto) 0.6 % (0.2-1.0) 10/03/17 05:35 Neut # (Auto) 22.3 x10^3/uL (2.2-4.8) H 10/03/17 05:35 Lymph # (Auto) 2.2 X10^3/uL (1.3-2.9) 10/03/17 05:35 [place] # (Auto) 2.2 x10^3/uL (0.3-0.8) H 10/03/17 05:35 Eos # (Auto) 0.0 x10^3/uL (0.0-0.2) 10/03/17 05:35 Baso # (Auto) 0.2 X10^3/uL (0.0-0.1) H 10/03/17 05:35 Absolute Nucleated RBC 0.0 /100WBC 10/03/17 05:35 Total Counted 100 10/03/17 05:35 Neutrophils % (Manual) 88 % (39-76) H 10/03/17 05:35 Band Neutrophils % 2 % (0-10) 10/03/17 05:35 Lymphocytes % (Manual) 8 % (13-43) L 10/03/17 05:35 Monocytes % (Manual) 2 % (4-9) L 10/03/17 05:35 Plt Morphology Comment Normal (NORMAL) 10/03/17 05:35 RBC Morphology Abnormal (NORMAL) A 10/03/17 05:35 Anisocytosis 1+ A 10/01/17 04:25 Crenated Cell 1+ A 10/03/17 05:35 INR Target Range - 09/28/17 07:00 INR 1.53 (0.8-1.3) H 09/28/17 07:00 APTT 38.3 SECONDS (22.9-36.5) H 09/28/17 07:00 PTT Comment - 09/28/17 07:00 Sample Site Lra 10/03/17 10:00 ABG pH 7.360 (7.35-7.45) 10/03/17 10:00 ABG pCO2 31.0 mmHg (35.0-45.0) L 10/03/17 10:00 ABG pO2 59.0 mmHg (80.0-100.0) L 10/03/17 10:00 ABG HCO3 17.5 mmol/L (22-26) L* 10/03/17 10:00 ABG O2 Saturation 89.0 % (90-100) L 10/03/17 10:00 ABG Base Excess -6.9 mmol/L (-2.0-2.0) L 10/03/17 10:00 Jeff Test Pos 10/03/17 10:00 A-a Gradient 159.0 mmHg 10/03/17 10:00 FiO2 36.000 10/03/17 10:00 Blood Gas Comments Shanna well cs 10/03/17 10:00 Sodium 144 mmol/L (136-145) 10/03/17 05:35 Corrected Sodium 144 mmol/L (136-145) 10/03/17 05:35 Potassium 3.6 mmol/L (3.5-5.1) 10/03/17 05:35 Chloride 115 mmol/L (98-107) H* 10/03/17 05:35 Carbon Dioxide 17.7 mmol/L (21-32) L 10/03/17 05:35 BUN 16 mg/dL (7-18) 10/03/17 05:35 Creatinine 1.28 mg/dL (0.55-1.02) H 10/03/17 05:35 Est GFR (MDRD) Af Amer 52 (>60) L 10/03/17 05:35 Est GFR (MDRD) Non-Af 43 (>60) L 10/03/17 05:35 Glucose 111 mg/dL (65-99) H 10/03/17 05:35 Lactic Acid 0.7 mmol/L (0.4-2.0) 09/30/17 11:35 Calcium 6.9 mg/dL (8.5-10.1) L 10/03/17 05:35 Corrected Calcium 8.7 mg/dL (8.5-10.1) 10/03/17 05:35 Magnesium 1.8 mg/dL (1.7-2.9) 09/29/17 06:03 Total Bilirubin 0.20 mg/dL (0.2-1.0) 10/03/17 05:35 AST 19 Units/L (15-37) 10/03/17 05:35 ALT 10 Units/L (12-78) L 10/03/17 05:35 Alkaline Phosphatase 37 Units/L (46-116) L 10/03/17 05:35 Creatine Kinase 381 Units/L (26-192) H 10/03/17 10:22 CK-MB (CK-2) 4.8 ng/mL (0-4.0) H* 10/03/17 10:22 CK/CKMB % Calc 1.3 % (<4) 10/03/17 10:22 Troponin I 0.03 ng/mL (0-1.5) 10/03/17 10:22 B-Natriuretic Peptide 85.7 pg/mL (0-79) H 10/03/17 10:22 Total Protein 4.3 g/dL (6.4-8.2) L 10/03/17 05:35 Albumin 1.8 g/dL (3.4-5.0) L 10/03/17 05:35 Globulin 2.5 g/dL (2.5-4.5) 10/03/17 05:35 Albumin/Globulin Ratio 0.7 Ratio (1.1-2.1) L 10/03/17 05:35 Triglycerides 105 mg/dL (0-150) 09/29/17 06:03 Cholesterol 74 mg/dL (0-200) 09/29/17 06:03 LDL Cholesterol, Calc 30 mg/dL (0-100) 09/29/17 06:03 HDL Cholesterol 23 mg/dL (40-60) L 09/29/17 06:03 Cholesterol/HDL Ratio 3.2 (0.0-5.0) 09/29/17 06:03 Specimen Type Catherized urine 10/03/17 10:43 Urine Color Veronique (YELLOW) 10/03/17 10:43 Urine Appearance Hazy (CLEAR) 10/03/17 10:43 Urine pH 5.0 (5.0 - 8.0) 10/03/17 10:43 Ur Specific [place] 1.025 (1.000-1.030) 10/03/17 10:43 Urine Protein 2+ (NEGATIVE) 10/03/17 10:43 Urine Glucose (UA) Negative (NEGATIVE) 10/03/17 10:43 Urine Ketones Negative (NEGATIVE) 10/03/17 10:43 Urine Occult Blood 1+ (NEGATIVE) 10/03/17 10:43 Urine Nitrite Positive (NEGATIVE) 10/03/17 10:43 Urine Bilirubin Negative (NEGATIVE) 10/03/17 10:43 Urine Urobilinogen Normal (NORMAL) 10/03/17 10:43 Ur Leukocyte Esterase 2+ (NEGATIVE) 10/03/17 10:43 Urine RBC 0-2 /HPF (NONE SEEN) 10/03/17 10:43 Urine WBC 5-10 /HPF (NONE SEEN) 10/03/17 10:43 Ur Squamous Epith Cells Few /HPF (NEGATIVE) 10/03/17 10:43 Urine Bacteria 1+ /HPF (NEGATIVE) 10/03/17 10:43 Hyaline Casts Moderate /LPF (NEGATIVE) 10/03/17 10:43 Coarse Granular Casts Few /HPF (NEGATIVE) 10/03/17 10:43 Ur Culture Indicated? Yes/culture set up 10/03/17 10:43 Stool Description 150g black liquid 09/28/17 06:31 Stl Occult Blood (IFOB) Positive (NEGATIVE) A 09/28/17 06:31 Stool for White Cells Positive (NEGATIVE) A 09/28/17 06:31 Stl C. diff Tox B Gene Positive (NEGATIVE) A 09/28/17 06:31 Stl C. diff [id number] Negative (NEGATIVE) 09/28/17 06:31 Cryptosporid parvum Ag Negative (NEGATIVE) 09/28/17 06:31 E. histolytica Antigen Negative (NEGATIVE) 09/28/17 06:31 Giardia lamblia Ag Negative (NEGATIVE) 09/28/17 06:31 Blood Type A POSITIVE 09/28/17 07:00 Antibody Screen Negative 09/28/17 07:00 Crossmatch See Detail 09/28/17 07:00 - Plan (1) C. difficile colitis Status: Acute Plan: FLAGYL 500MG PO Q6H, NORMAL SALINE AT 125ML/HR, 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 (2) Urinary tract infection Status: Acute Qualifiers: Urinary tract infection type: acute cystitis Hematuria presence: with hematuria Qualified Code(s): N30.01 - Acute cystitis with hematuria Plan: ROCEPHIN 1GM IV DAILY, NORMAL SALINE AT 125ML/HR, 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 (3) Anemia Status: Acute Qualifiers: Anemia type: iron deficiency Iron deficiency anemia type: unspecified iron deficiency Qualified Code(s): D50.9 - Iron deficiency anemia, unspecified Plan: MONITOR H&H (4) Chest pain Status: Acute Qualifiers: Chest pain type: unspecified Qualified Code(s): R07.9 - Chest pain, unspecified 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
--- NOTE | 2017-10-03 20:32 | PCM.PROG ---
Progress Note - Progress Note for Day of Date: 10/02/17 - Subjective Subjective: IS BEING TREATED FOR COLITIS, URINARY TRACT INFECTION, C- DIFF, AND ANEMIA. TODAY, SHE IS ALERT AND ORIENTED, SITTING UP IN THE BED ON MORNING ROUNDS. SHE CONTINUES WITH COMPLAINTS OF GENERALIZED WEAKNESS AND NAUSEA. SHE ALSO VERBALIZES COMPLAINTS OF INCREASED SHORTNESS OF BREATH AND WHEEZING THIS MORNING. ON EXAMINATION, HEART IS REGULAR IN RATE AND RHYTHM. BILATERAL LUNGS ARE NOTED WITH EXPIRATORY WHEEZING AND RALES IN BILATERAL LUNG GILLIS. SHE IS CURRENTLY UTILIZING OXYGEN VIA NASAL CANNULA AT 2L/MIN. ABDOMEN IS ROUND, SOFT, AND NOTED WITH MILD, DIFFUSE TENDERNESS TO PALPATION. NORMAL BOWEL SOUNDS ARE NOTED IN ALL QUADRANTS. VITALS THIS MORNING ARE 97.6-99-18-93% NC-135/61. LABS WERE OBTAINED. ABNORMAL LAB VALUES INCLUDE THE FOLLOWING: WBC INCREASED FROM 15.7 TO 26.8, RBC 3.43, HGB 9.3, HCT 28.9, PLT COUNT 544, SODIUM 146, CHLORIDE 116, CARBON DIOXIDE 16.7, CREATININE 1.10, GLUCOSE 122, CALCIUM 6.9, ALK PHOS 37, TOTAL PROTEIN 4.2, ALBUMIN 1.5. A CHEST XRAY WAS OBTAINED THIS MORNING AND REVEALED INTERVAL IMPROVEMENT IN AERATION IN BOTH LOWER LOBES. INTERSTITAL MARKINGS HAVE IMPROVED ALSO. SMALL AMOUNT OF LEFT PLEURAL FLUID NOTED. TODAY, WE WILL CONTINUE PO FLAGYL, FOR C-DIFF AND COLITIS. WE WILL DISCONTINUE THE ROCEPHIN AND START FORTAZ AND LEVAQUIN IV. WE WILL ALSO START ALBUMIN 25% IV DAILY. OTHERWISE, WE PLAN TO FOLLOW UP WITH AM LABS AND 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 PATIENT. WILL CONSULT WITH PATIENT TODAY. - Past Medical Family Social History Past Med/Fam/Surg Hx: No changes since H&P Allergies: Allergies No Known Drug Allergies Allergy (Verified 09/17/17 16:26) - Review of Systems ROS: No change since H&P - Vital Signs and I&O's Vital Signs: Temperature 100.7 F Pulse Rate [Left Radial] 85 Pulse Rate 84 Respiratory Rate 20 Blood Pressure [Left Calf] 183/73 Blood Pressure [Left Arm] 113/51 Blood Pressure [Right Calf] 142/51 Blood Pressure [Right Arm] 162/67 Blood Pressure 145/90 O2 Sat by Pulse Oximetry 94 Intake and Output: Intake & Output 03/25/18 10/02/17 10/03/17 10/04/17 11:59 11:59 11:59 11:59 Intake Total 2975 2740 645 0 Output Total 1900 Balance 2970 1503 645 -1900 - Physical Exam Oriented: Normal Eyes: Normal Ear: Normal Nose: Normal Throat: Normal Respiratory: Right, Left, Generalized, Wheezes, Rales Cardiovascular: Normal : Normal Auscultation: Bowel Sounds: Normal Palpation: Normal Tenderness: Diffuse, Mild. negative: Rebound, Guarding, Rigidity Skin: Normal Musculoskeletal: Normal Psychiatric: Normal Mood Description: Calm Affect: Normal Speech Pattern: Clear - Laboratory and Diagnostics Result Diagrams: 10/03/17 05:35 10/03/17 05:35 Labs: 10/03/17 10:14 Sputum - Expectorated Sputum - Final 09/28/17 06:31 Stool Stool Culture - Final 09/28/17 06:31 Stool - Final Laboratory WBC 26.8 X10^3/uL (3.6-10.0) H 10/03/17 05:35 RBC 3.10 X10^6/uL (3.5-5.4) L 10/03/17 05:35 Hgb 8.5 g/dL (12.0-16.0) L 10/03/17 05:35 Hct 25.8 % (36.0-47.0) L 10/03/17 05:35 MCV 83.1 fL (80.0-100.0) 10/03/17 05:35 MCH 27.4 pg (27.0-34.0) 10/03/17 05:35 MCHC 32.9 g/dL (33.0-35.0) L 10/03/17 05:35 RDW 19.3 % (11.6-16.5) H 10/03/17 05:35 Plt Count 462 X10^3/uL (150.0-450.0) H 10/03/17 05:35 Plt Count Comment Increased (ADEQUATE) A 10/03/17 05:35 MPV 9.2 fL (7.4-11.0) 10/03/17 05:35 Neut % (Auto) 82.9 % (42.0-75.0) H 10/03/17 05:35 Lymph % (Auto) 8.2 % (21.0-51.0) L 10/03/17 05:35 [place] % (Auto) 8.3 % (0.0-13.0) 10/03/17 05:35 Eos % (Auto) 0.0 % (0.9-2.9) L 10/03/17 05:35 Baso % (Auto) 0.6 % (0.2-1.0) 10/03/17 05:35 Neut # (Auto) 22.3 x10^3/uL (2.2-4.8) H 10/03/17 05:35 Lymph # (Auto) 2.2 X10^3/uL (1.3-2.9) 10/03/17 05:35 [place] # (Auto) 2.2 x10^3/uL (0.3-0.8) H 10/03/17 05:35 Eos # (Auto) 0.0 x10^3/uL (0.0-0.2) 10/03/17 05:35 Baso # (Auto) 0.2 X10^3/uL (0.0-0.1) H 10/03/17 05:35 Absolute Nucleated RBC 0.0 /100WBC 10/03/17 05:35 Total Counted 100 10/03/17 05:35 Neutrophils % (Manual) 88 % (39-76) H 10/03/17 05:35 Band Neutrophils % 2 % (0-10) 10/03/17 05:35 Lymphocytes % (Manual) 8 % (13-43) L 10/03/17 05:35 Monocytes % (Manual) 2 % (4-9) L 10/03/17 05:35 Plt Morphology Comment Normal (NORMAL) 10/03/17 05:35 RBC Morphology Abnormal (NORMAL) A 10/03/17 05:35 Anisocytosis 1+ A 10/01/17 04:25 Crenated Cell 1+ A 10/03/17 05:35 INR Target Range - 09/28/17 07:00 INR 1.53 (0.8-1.3) H 09/28/17 07:00 APTT 38.3 SECONDS (22.9-36.5) H 09/28/17 07:00 PTT Comment - 09/28/17 07:00 Sample Site Lra 10/03/17 10:00 ABG pH 7.360 (7.35-7.45) 10/03/17 10:00 ABG pCO2 31.0 mmHg (35.0-45.0) L 10/03/17 10:00 ABG pO2 59.0 mmHg (80.0-100.0) L 10/03/17 10:00 ABG HCO3 17.5 mmol/L (22-26) L* 10/03/17 10:00 ABG O2 Saturation 89.0 % (90-100) L 10/03/17 10:00 ABG Base Excess -6.9 mmol/L (-2.0-2.0) L 10/03/17 10:00 Jeff Test Pos 10/03/17 10:00 A-a Gradient 159.0 mmHg 10/03/17 10:00 FiO2 36.000 10/03/17 10:00 Blood Gas Comments Shanna well cs 10/03/17 10:00 Sodium 144 mmol/L (136-145) 10/03/17 05:35 Corrected Sodium 144 mmol/L (136-145) 10/03/17 05:35 Potassium 3.6 mmol/L (3.5-5.1) 10/03/17 05:35 Chloride 115 mmol/L (98-107) H* 10/03/17 05:35 Carbon Dioxide 17.7 mmol/L (21-32) L 10/03/17 05:35 BUN 16 mg/dL (7-18) 10/03/17 05:35 Creatinine 1.28 mg/dL (0.55-1.02) H 10/03/17 05:35 Est GFR (MDRD) Af Amer 52 (>60) L 10/03/17 05:35 Est GFR (MDRD) Non-Af 43 (>60) L 10/03/17 05:35 Glucose 111 mg/dL (65-99) H 10/03/17 05:35 Lactic Acid 0.7 mmol/L (0.4-2.0) 09/30/17 11:35 Calcium 6.9 mg/dL (8.5-10.1) L 10/03/17 05:35 Corrected Calcium 8.7 mg/dL (8.5-10.1) 10/03/17 05:35 Magnesium 1.8 mg/dL (1.7-2.9) 09/29/17 06:03 Total Bilirubin 0.20 mg/dL (0.2-1.0) 10/03/17 05:35 AST 19 Units/L (15-37) 10/03/17 05:35 ALT 10 Units/L (12-78) L 10/03/17 05:35 Alkaline Phosphatase 37 Units/L (46-116) L 10/03/17 05:35 Creatine Kinase 381 Units/L (26-192) H 10/03/17 10:22 CK-MB (CK-2) 4.8 ng/mL (0-4.0) H* 10/03/17 10:22 CK/CKMB % Calc 1.3 % (<4) 10/03/17 10:22 Troponin I 0.03 ng/mL (0-1.5) 10/03/17 10:22 B-Natriuretic Peptide 85.7 pg/mL (0-79) H 10/03/17 10:22 Total Protein 4.3 g/dL (6.4-8.2) L 10/03/17 05:35 Albumin 1.8 g/dL (3.4-5.0) L 10/03/17 05:35 Globulin 2.5 g/dL (2.5-4.5) 10/03/17 05:35 Albumin/Globulin Ratio 0.7 Ratio (1.1-2.1) L 10/03/17 05:35 Triglycerides 105 mg/dL (0-150) 09/29/17 06:03 Cholesterol 74 mg/dL (0-200) 09/29/17 06:03 LDL Cholesterol, Calc 30 mg/dL (0-100) 09/29/17 06:03 HDL Cholesterol 23 mg/dL (40-60) L 09/29/17 06:03 Cholesterol/HDL Ratio 3.2 (0.0-5.0) 09/29/17 06:03 Specimen Type Catherized urine 10/03/17 10:43 Urine Color Veronique (YELLOW) 10/03/17 10:43 Urine Appearance Hazy (CLEAR) 10/03/17 10:43 Urine pH 5.0 (5.0 - 8.0) 10/03/17 10:43 Ur Specific [place] 1.025 (1.000-1.030) 10/03/17 10:43 Urine Protein 2+ (NEGATIVE) 10/03/17 10:43 Urine Glucose (UA) Negative (NEGATIVE) 10/03/17 10:43 Urine Ketones Negative (NEGATIVE) 10/03/17 10:43 Urine Occult Blood 1+ (NEGATIVE) 10/03/17 10:43 Urine Nitrite Positive (NEGATIVE) 10/03/17 10:43 Urine Bilirubin Negative (NEGATIVE) 10/03/17 10:43 Urine Urobilinogen Normal (NORMAL) 10/03/17 10:43 Ur Leukocyte Esterase 2+ (NEGATIVE) 10/03/17 10:43 Urine RBC 0-2 /HPF (NONE SEEN) 10/03/17 10:43 Urine WBC 5-10 /HPF (NONE SEEN) 10/03/17 10:43 Ur Squamous Epith Cells Few /HPF (NEGATIVE) 10/03/17 10:43 Urine Bacteria 1+ /HPF (NEGATIVE) 10/03/17 10:43 Hyaline Casts Moderate /LPF (NEGATIVE) 10/03/17 10:43 Coarse Granular Casts Few /HPF (NEGATIVE) 10/03/17 10:43 Ur Culture Indicated? Yes/culture set up 10/03/17 10:43 Stool Description 150g black liquid 09/28/17 06:31 Stl Occult Blood (IFOB) Positive (NEGATIVE) A 09/28/17 06:31 Stool for White Cells Positive (NEGATIVE) A 09/28/17 06:31 Stl C. diff Tox B Gene Positive (NEGATIVE) A 09/28/17 06:31 Stl C. diff [id number] Negative (NEGATIVE) 09/28/17 06:31 Cryptosporid parvum Ag Negative (NEGATIVE) 09/28/17 06:31 E. histolytica Antigen Negative (NEGATIVE) 09/28/17 06:31 Giardia lamblia Ag Negative (NEGATIVE) 09/28/17 06:31 Blood Type A POSITIVE 09/28/17 07:00 Antibody Screen Negative 09/28/17 07:00 Crossmatch See Detail 09/28/17 07:00 - Plan (1) C. difficile colitis Status: Acute Plan: FLAGYL 500MG PO Q6H, NORMAL SALINE AT 125ML/HR, 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 (2) Urinary tract infection Status: Acute Qualifiers: Urinary tract infection type: acute cystitis Hematuria presence: with hematuria Qualified Code(s): N30.01 - Acute cystitis with hematuria Plan: FORTAZ 1GM IV Q12H, LEVAQUIN 250MG IV DAILY , NORMAL SALINE AT 125ML/HR, 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 (3) Anemia Status: Acute Qualifiers: Anemia type: iron deficiency Iron deficiency anemia type: unspecified iron deficiency Qualified Code(s): D50.9 - Iron deficiency anemia, unspecified Plan: MONITOR H&H (4) Chest pain Status: Acute Qualifiers: Chest pain type: unspecified Qualified Code(s): R07.9 - Chest pain, unspecified Plan: [employer], 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 (5) Atypical pneumonia Status: Acute Plan: FORTAZ IV, LEVAQUIN IV, RESPIRATORY TREATMENTS, SUPPLEMENTAL OXYGEN, 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 (6) Hypoalbuminemia due to protein-calorie malnutrition Status: Acute Plan: ALBUMIN 25% IV DAILY, 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
[2017-10-03] MEDS: NEURONTIN CAP 300 MG PO SCH (21:42)
[2017-10-03] MEDS: PRAVACHOL PO SCH (21:42)
[2017-10-04] MEDS: PROTONIX INJ 40 MG VIAL 80 MG in NS 100 ML IV 80 ML IV SCH ×3 (00:02→11:33)
[2017-10-04] MEDS: NS 1000 ML 1,000 ML IV SCH ×2 (01:33→06:15)
[2017-10-04] MEDS: FLAGYL TAB 500 MG PO SCH ×4 (05:33→22:02)
[2017-10-04] MEDS: REQUIP PO SCH ×3 (05:34→21:57)
[2017-10-04 06:31] LABS: BASOPHILS # (AUTO) 0.1 X10^3/uL (0.0-0.1); BASOPHILS % (AUTO) 0.3 % (0.2-1.0); HEMATOCRIT 24.8 % (36.0-47.0); HEMOGLOBIN 8.2 g/dL (12.0-16.0); LYMPHOCYTES # (AUTO) 1.5 X10^3/uL (1.3-2.9); LYMPHOCYTES % (AUTO) 5.8 % (21.0-51.0); MEAN CORPUSCULAR HEMOGLOBIN 27.1 pg (27.0-34.0); MEAN CORPUSCULAR HGB CONC 33.1 g/dL (33.0-35.0); MEAN CORPUSCULAR VOLUME 81.9 fL (80.0-100.0); MEAN PLATELET VOLUME 8.9 fL (7.4-11.0); MONOCYTES # (AUTO) 1.5 x10^3/uL (0.3-0.8); MONOCYTES % (AUTO) 5.8 % (0.0-13.0); NEUTROPHILS # (AUTO) 23.3 x10^3/uL (2.2-4.8); NEUTROPHILS % (AUTO) 88.1 % (42.0-75.0); PLATELET COUNT 426 X10^3/uL (150.0-450.0); RED BLOOD COUNT 3.03 X10^6/uL (3.5-5.4); RED CELL DISTRIBUTION WIDTH 19.3 % (11.6-16.5); WHITE BLOOD COUNT 26.4 X10^3/uL (3.6-10.0)
[2017-10-04 06:58] LABS: ALANINE AMINOTRANSFERASE 14 Units/L (12-78); ALBUMIN 1.7 g/dL (3.4-5.0); ALKALINE PHOSPHATASE 30 Units/L (46-116); ASPARTATE AMINO TRANSFERASE 32 Units/L (15-37); BLOOD UREA NITROGEN 16 mg/dL (7-18); CALCIUM 6.8 mg/dL (8.5-10.1); CARBON DIOXIDE 19.6 mmol/L (21-32); CHLORIDE 112 mmol/L (98-107); COR CA(FOR HYPOALB) 8.6 mg/dL (8.5-10.1); CREATININE 1.35 mg/dL (0.55-1.02); SODIUM 145 mmol/L (136-145); TOTAL PROTEIN 4.2 g/dL (6.4-8.2); eGFR BLACK RACES 49 (>60); eGFR NON BLACK RACES 40 (>60)
[2017-10-04 07:44] LABS: PLATELET MORPHOLOGY COMMENT NORMAL (NORMAL)
--- NOTE | 2017-10-04 08:26 | RAD ---
HISTORY: Shortness of breath, wheezing. Prior history of asthma, COPD, hypertension, GA and anemia. Prior surgical history of mastectomy. Study: Single-view chest Comparison: 10/03/2017. Findings: Surgical clips are present in the left axilla. Trachea is midline. There is cardiomegaly with aortic uncoiling and pulmonary vascular congestion. Degree of left perihilar infiltrate, edema or pleural ef fusion is not significantly changed. Increasing right perihilar lung opacities are present, now exten ding into the right lower lobe. No significant right pleural effusion is seen. Osseous structures are intact. IMPRESSION: Increasing right perihilar infiltrate or edema. Left sided pleural parenchymal densities are about th e same. Cardiomegaly with pulmonary vascular congestion. Reported By:
[2017-10-04] MEDS: PULMICORT NEB TX 0.5 MG NEB SCH ×2 (09:30→21:16)
[2017-10-04] MEDS: DUONEB 0.5 MG/3 MG NEB SCH ×4 (09:30→21:15)
[2017-10-04] MEDS: PEPCID TAB 20 MG PO SCH ×2 (09:42→20:50)
[2017-10-04] MEDS: CORDARONE TAB 200 MG PO SCH ×2 (09:42→10:40)
[2017-10-04] MEDS: NAMENDA TAB 10 MG PO SCH ×2 (09:42→20:52)
[2017-10-04] MEDS: IMODIUM CAP 2 MG PO SCH ×4 (09:42→20:53)
[2017-10-04] MEDS: HEMOCYTE-PLUS PO SCH (09:42)
[2017-10-04] MEDS: SINGULAIR TAB 10 MG PO SCH (09:43)
[2017-10-04] MEDS: ALBUMIN HUMAN 25%- 100ML 100 ML IV SCH (09:43)
[2017-10-04] MEDS: LASIX IVP SCH ×2 (09:44→20:50)
[2017-10-04] MEDS: LEVAQUIN PREMIX IV 250 MG 250 MG/50 ML BAG IV SCH (09:44)
[2017-10-04] MEDS: FORTAZ or TAZICEF INJ 1 GM in NS 100 ML IV + SPIKE MINIBAG* 100 ML IV SCH ×2 (09:44→20:51)
[2017-10-04] MEDS: ARICEPT TAB 10 MG PO SCH (09:44)
[2017-10-04 10:47] LABS: ABG ALLEN TEST POS; ABG BASE EXCESS -6.5 mmol/L (-2.0-2.0); ABG HCO3 18.2 mmol/L (22-26)
[2017-10-04 12:11] LABS: MYCOPLASMA PNEUMONIAE IGM AB NEGATIVE (NEGATIVE)
--- NOTE | 2017-10-04 17:10 | DR.H&P ---
H&P - History & Physical for Day of: H&P Date: 10/03/17 - Chief Complaint Chief Complaint: generalized weakness, fall, short of breath - Allergies Allergies/Adverse Reactions: Allergies Allergy/AdvReac Type Severity Reaction Status Date / Time No Known Drug Allergies Allergy Verified 09/17/17 16:26 - History of Present Illness History of Present Illness: is a 82 year old patient of who presented to the emergency room via EMS with reports of a fall at home. Patient reports generalized weakness and dizziness throughout the day. EMS reports that patients systolic blood pressure was in the 40s on their arrival. Patient states her blood pressure has been decreased recently. She also reports bilateral hip pain following the fall. Medical History includes: Cataracts, Hypertension, IBS, Constipation, Muscle Weakness, Arthritis, DDD, Depression, and Dyspnea. On arrival to the emergency room, vitals were 98.1, 86 , 16, 99% 2L NC, 123/57. Labs were obtained. Abnormal Labs include the following : WBC 14.4, Hgb 11.5, Hct 35.4, MCH 26.9, MCHC 32.5, D-Dimer 612, Sodium 131, Chloride 96, Creatinine 1.37, GFR af 48, GFR non 39, Glucose 105, Calcium 8.1, AST 44, Albumin 3.0, A/G Ratio 0.8. EKG revealed: Sinus Rhythm, Rate=86. Hip X- Ray reports: No acute osseous abnormality. A Chest X-Ray was obtained and reported: Stable cardiomegaly and chronic interstitial lung changes without acute airspace disease or CHF. Moderate-sized hiatal hernia. Brain CT reported : No obvious acute intracranial pathology. If clinical concern exists for acute ischemia/infarction, MRI brain is more sensitive. Patient admitted to the hospital as observation for a syncopal episode, hyponatremia, and to rule out a pulmonary embolism. We plan to obtain a chest CT with contrast in the morning and will follow up with am labs. - Past Medical History Past Medical History: Asthma, COPD, Coronary Artery Disease, Dyslipidemia, Hypertension, [place] Additional Medical History: Breast and uterine cancer - Past Surgical History Surgical History: Cholecystectomy, Hysterectomy, Mastectomy - Family History Family Medical History: Diabetes Mellitus - Social History Does patient currently use any type of tobacco product: Yes Have you used tobacco products in the last 12 months: Yes Type of Tobacco Use: Cigarettes Does any household member use tobacco: No Alcohol Use: None Drug Use: None - Medications Home Medications: Budesonide 0.25 mg IH BID 09/28/17 [History Confirmed 09/28/17] Famotidine [Famotidine] 40 mg PO BID 09/28/17 [History Confirmed 09/28/17] Hyoscyamine Sulfate [Levsin Syrup] 15 ml PO TID PRN 09/28/17 [History Confirmed 09/28/17] Ipratropium/Albuterol Nebule [DUONEB 0.5 MG/3 MG NEBULE *] 1 nebule NEB QID PRN 09/28/17 [History Confirmed 09/28/17] Loperamide HCl [Imodium A-D] 2 mg PO QID 09/28/17 [History Confirmed 09/28/17] Naproxen [Naproxen] 1 tab PO BID 09/28/17 [History Confirmed 09/28/17] - Physical Exam Vital Signs: Temperature 99 F Pulse Rate [Left Radial] 97 Pulse Rate 86 Respiratory Rate 18 Blood Pressure [Left Calf] 134/58 Blood Pressure [Left Arm] 86/39 Blood Pressure [Right Calf] 142/51 Blood Pressure [Right Arm] 162/67 Blood Pressure 145/90 O2 Sat by Pulse Oximetry 93 Oriented: Normal - Assessment/Plan (1) C. difficile colitis Status: Acute (2) Urinary tract infection Qualifiers: Urinary tract infection type: acute cystitis Hematuria presence: with hematuria Qualified Code(s): N30.01 - Acute cystitis with hematuria Status: Acute (3) Anemia Qualifiers: Anemia type: iron deficiency Iron deficiency anemia type: unspecified iron deficiency Qualified Code(s): D50.9 - Iron deficiency anemia, unspecified Status: Acute (4) Chest pain Qualifiers: Chest pain type: unspecified Qualified Code(s): R07.9 - Chest pain, unspecified Status: Acute (5) Atypical pneumonia Status: Acute (6) Hypoalbuminemia due to protein-calorie malnutrition Status: Acute
[2017-10-04] MEDS: ELIQUIS PO SCH (20:51)
[2017-10-04] MEDS: NEURONTIN CAP 300 MG PO SCH (20:51)
[2017-10-04] MEDS: PRAVACHOL PO SCH (20:52)
[2017-10-04] MEDS: DIFLUCAN 200 MG IV PREMIX* 200 MG/100 ML BAG IV SCH (21:54)
--- NOTE | 2017-10-04 21:58 | PCM.PROG ---
Progress Note - Progress Note for Day of Date: 10/03/17 - Subjective Subjective: IS BEING TREATED FOR COLITIS, URINARY TRACT INFECTION, C- DIFF, AND ANEMIA. TODAY, SHE IS ALERT AND ORIENTED, SITTING UP IN THE BED ON MORNING ROUNDS. SHE COMPLAINS OF SEVERE SHORTNESS OF BREATH THIS MORNING. SHE ALSO CONTINUES WITH GENERALIZED WEAKNESS. ON EXAMINATION, HEART IS REGULAR IN RATE AND RHYTHM. BILATERAL LUNGS ARE NOTED WITH EXPIRATORY WHEEZING AND RALES IN BILATERAL LUNG GILLIS. SHE IS NOT WEARING HER OXYGEN AT THIS TIME. A NASAL CANNULA WAS PLACE ON PATIENT WITH OXYGEN AT 3L/MIN. OXYGEN SATURATIONS ONLY INCREASE TO 85%. ABDOMEN IS ROUND, SOFT, AND NOTED WITH MILD, DIFFUSE TENDERNESS TO PALPATION. NORMAL BOWEL SOUNDS ARE NOTED IN ALL QUADRANTS. VITALS THIS MORNING ARE 99.2-88-20-83%RA-115/49. LABS WERE OBTAINED. ABNORMAL LAB VALUES INCLUDE THE FOLLOWING: WBC 26.8, RBC 3.10, HGB 8.5, HCT 25.8, CHLORIDE 115, CARBON DIOXIDE 17.7, CREATININE 1.23, GLUCOSE 111, CALCIUM 6.9, ALT 10, ALK PHOS 37, TOTAL PROTEIN 4.3, ALBUMIN 1.8, BNP 85.7. CREATINE KINASE 381, CK- MB 4.8, TROPONIN 0.03. AN ABG WAS OBTAINED AND REVEALED PH 7.360, PC02 31.0, P02 59, HC03 17.5, 02 SATURATION 89, BASE EXCESS -6.9. A CHEST XRAY REVEALED INCREASING OPACITY AT THE LEFT BASE MAY REPRESENT COMBINATION OF ATELECTASIS/ INFILTRATE AND LEFT EFFUSION. TODAY, WE WILL CONTINUE PO FLAGYL, FOR C-DIFF AND COLITIS. SHE WILL ALSO CONTINUE ON FORTAZ AND LEVAQUIN FOR UTI AND PNEUMONIA. WE ORDERED FOR PATIENT TO HAVE LASIX 40MG IV Q12H, INSERT A BIUTRAGO CATHETER, AND PLACE PATIENT ON THE BIPAP. OTHERWISE, WE PLAN TO FOLLOW UP WITH AM LABS AND 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 PATIENT. - Past Medical Family Social History Past Med/Fam/Surg Hx: No changes since H&P Allergies: Allergies No Known Drug Allergies Allergy (Verified 09/17/17 16:26) - Review of Systems ROS: No change since H&P - Vital Signs and I&O's Vital Signs: Temperature 99 F Pulse Rate [Left Radial] 97 Pulse Rate 86 Respiratory Rate 18 Blood Pressure [Left Calf] 134/58 Blood Pressure [Left Arm] 86/39 Blood Pressure [Right Calf] 142/51 Blood Pressure [Right Arm] 162/67 Blood Pressure 145/90 O2 Sat by Pulse Oximetry 93 Intake and Output: Intake & Output 10/02/17 10/03/17 10/04/17 10/05/17 11:59 11:59 11:59 11:59 Intake Total 2740 645 805 600 Output Total 3320 550 Balance 2740 645 -2515 50 - Physical Exam Oriented: Normal Eyes: Normal Ear: Normal Nose: Normal Throat: Normal Respiratory: Right, Left, Generalized, Wheezes, Rales Cardiovascular: Normal : Normal Auscultation: Bowel Sounds: Normal Palpation: Normal Tenderness: Diffuse, Mild. negative: Rebound, Guarding, Rigidity Skin: Normal Musculoskeletal: Normal Psychiatric: Normal Mood Description: Calm Affect: Normal Speech Pattern: Clear, Appropriate - Laboratory and Diagnostics Result Diagrams: 10/04/17 06:04 10/04/17 06:04 Labs: 10/03/17 10:43 Urine,Clean Catch Urine Culture - Preliminary 10/03/17 10:14 Sputum - Expectorated Sputum Sputum Culture - Preliminary 10/03/17 10:14 Sputum - Expectorated Sputum - Final 09/28/17 06:31 Stool Stool Culture - Final 09/28/17 06:31 Stool - Final Laboratory WBC 26.4 X10^3/uL (3.6-10.0) H 10/04/17 06:04 RBC 3.03 X10^6/uL (3.5-5.4) L 10/04/17 06:04 Hgb 8.2 g/dL (12.0-16.0) L 10/04/17 06:04 Hct 24.8 % (36.0-47.0) L 10/04/17 06:04 MCV 81.9 fL (80.0-100.0) 10/04/17 06:04 MCH 27.1 pg (27.0-34.0) 10/04/17 06:04 MCHC 33.1 g/dL (33.0-35.0) 10/04/17 06:04 RDW 19.3 % (11.6-16.5) H 10/04/17 06:04 Plt Count 426 X10^3/uL (150.0-450.0) 10/04/17 06:04 Plt Count Comment Adequate (ADEQUATE) 10/04/17 06:04 MPV 8.9 fL (7.4-11.0) 10/04/17 06:04 Neut % (Auto) 88.1 % (42.0-75.0) H 10/04/17 06:04 Lymph % (Auto) 5.8 % (21.0-51.0) L 10/04/17 06:04 Clare % (Auto) 5.8 % (0.0-13.0) 10/04/17 06:04 Eos % (Auto) 0.0 % (0.9-2.9) L 10/04/17 06:04 Baso % (Auto) 0.3 % (0.2-1.0) 10/04/17 06:04 Neut # (Auto) 23.3 x10^3/uL (2.2-4.8) H 10/04/17 06:04 Lymph # (Auto) 1.5 X10^3/uL (1.3-2.9) 10/04/17 06:04 Clare # (Auto) 1.5 x10^3/uL (0.3-0.8) H 10/04/17 06:04 Eos # (Auto) 0.0 x10^3/uL (0.0-0.2) 10/04/17 06:04 Baso # (Auto) 0.1 X10^3/uL (0.0-0.1) 10/04/17 06:04 Absolute Nucleated RBC 0.1 /100WBC 10/04/17 06:04 Total Counted 100 10/04/17 06:04 Neutrophils % (Manual) 84 % (39-76) H 10/04/17 06:04 Band Neutrophils % 2 % (0-10) 10/03/17 05:35 Lymphocytes % (Manual) 8 % (13-43) L 10/04/17 06:04 Monocytes % (Manual) 8 % (4-9) 10/04/17 06:04 Plt Morphology Comment Normal (NORMAL) 10/04/17 06:04 RBC Morphology Normal (NORMAL) 10/04/17 06:04 Anisocytosis 1+ A 10/01/17 04:25 Crenated Cell 1+ A 10/03/17 05:35 INR Target Range - 09/28/17 07:00 INR 1.53 (0.8-1.3) H 09/28/17 07:00 APTT 38.3 SECONDS (22.9-36.5) H 09/28/17 07:00 PTT Comment - 09/28/17 07:00 Sample Site Lra 10/04/17 10:42 ABG pH 7.350 (7.35-7.45) 10/04/17 10:42 ABG pCO2 33.0 mmHg (35.0-45.0) L 10/04/17 10:42 ABG pO2 61.0 mmHg (80.0-100.0) L 10/04/17 10:42 ABG HCO3 18.2 mmol/L (22-26) L 10/04/17 10:42 ABG O2 Saturation 90.0 % (90-100) 10/04/17 10:42 ABG Base Excess -6.5 mmol/L (-2.0-2.0) L 10/04/17 10:42 Jeff Test Pos 10/04/17 10:42 A-a Gradient 254.0 mmHg 10/04/17 10:42 FiO2 50.000 10/04/17 10:42 Blood Gas Comments Shanna well cs 10/04/17 10:42 Sodium 145 mmol/L (136-145) 10/04/17 06:04 Corrected Sodium TNP 10/04/17 06:04 Potassium 3.1 mmol/L (3.5-5.1) L 10/04/17 06:04 Chloride 112 mmol/L (98-107) H 10/04/17 06:04 Carbon Dioxide 19.6 mmol/L (21-32) L 10/04/17 06:04 BUN 16 mg/dL (7-18) 10/04/17 06:04 Creatinine 1.35 mg/dL (0.55-1.02) H 10/04/17 06:04 Est GFR (MDRD) Af Amer 49 (>60) L 10/04/17 06:04 Est GFR (MDRD) Non-Af 40 (>60) L 10/04/17 06:04 Glucose 95 mg/dL (65-99) 10/04/17 06:04 Lactic Acid 0.7 mmol/L (0.4-2.0) 10/04/17 11:00 Calcium 6.8 mg/dL (8.5-10.1) L 10/04/17 06:04 Corrected Calcium 8.6 mg/dL (8.5-10.1) 10/04/17 06:04 Magnesium 1.8 mg/dL (1.7-2.9) 09/29/17 06:03 Total Bilirubin 0.20 mg/dL (0.2-1.0) 10/04/17 06:04 AST 32 Units/L (15-37) 10/04/17 06:04 ALT 14 Units/L (12-78) 10/04/17 06:04 Alkaline Phosphatase 30 Units/L (46-116) L 10/04/17 06:04 Creatine Kinase 381 Units/L (26-192) H 10/03/17 10:22 CK-MB (CK-2) 4.8 ng/mL (0-4.0) H* 10/03/17 10:22 CK/CKMB % Calc 1.3 % (<4) 10/03/17 10:22 Troponin I 0.03 ng/mL (0-1.5) 10/03/17 10:22 B-Natriuretic Peptide 85.7 pg/mL (0-79) H 10/03/17 10:22 Total Protein 4.2 g/dL (6.4-8.2) L 10/04/17 06:04 Albumin 1.7 g/dL (3.4-5.0) L 10/04/17 06:04 Globulin 2.5 g/dL (2.5-4.5) 10/04/17 06:04 Albumin/Globulin Ratio 0.7 Ratio (1.1-2.1) L 10/04/17 06:04 Triglycerides 105 mg/dL (0-150) 09/29/17 06:03 Cholesterol 74 mg/dL (0-200) 09/29/17 06:03 LDL Cholesterol, Calc 30 mg/dL (0-100) 09/29/17 06:03 HDL Cholesterol 23 mg/dL (40-60) L 09/29/17 06:03 Cholesterol/HDL Ratio 3.2 (0.0-5.0) 09/29/17 06:03 Specimen Type Catherized urine 10/03/17 10:43 Urine Color Veronique (YELLOW) 10/03/17 10:43 Urine Appearance Hazy (CLEAR) 10/03/17 10:43 Urine pH 5.0 (5.0 - 8.0) 10/03/17 10:43 Ur Specific Edmond 1.025 (1.000-1.030) 10/03/17 10:43 Urine Protein 2+ (NEGATIVE) 10/03/17 10:43 Urine Glucose (UA) Negative (NEGATIVE) 10/03/17 10:43 Urine Ketones Negative (NEGATIVE) 10/03/17 10:43 Urine Occult Blood 1+ (NEGATIVE) 10/03/17 10:43 Urine Nitrite Positive (NEGATIVE) 10/03/17 10:43 Urine Bilirubin Negative (NEGATIVE) 10/03/17 10:43 Urine Urobilinogen Normal (NORMAL) 10/03/17 10:43 Ur Leukocyte Esterase 2+ (NEGATIVE) 10/03/17 10:43 Urine RBC 0-2 /HPF (NONE SEEN) 10/03/17 10:43 Urine WBC 5-10 /HPF (NONE SEEN) 10/03/17 10:43 Ur Squamous Epith Cells Few /HPF (NEGATIVE) 10/03/17 10:43 Urine Bacteria 1+ /HPF (NEGATIVE) 10/03/17 10:43 Hyaline Casts Moderate /LPF (NEGATIVE) 10/03/17 10:43 Coarse Granular Casts Few /HPF (NEGATIVE) 10/03/17 10:43 Ur Culture Indicated? Yes/culture set up 10/03/17 10:43 Stool Description 150g black liquid 09/28/17 06:31 Stl Occult Blood (IFOB) Positive (NEGATIVE) A 09/28/17 06:31 Stool for White Cells Positive (NEGATIVE) A 09/28/17 06:31 Stl C. diff Tox B Gene Positive (NEGATIVE) A 09/28/17 06:31 Stl C. diff [id number] Negative (NEGATIVE) 09/28/17 06:31 Cryptosporid parvum Ag Negative (NEGATIVE) 09/28/17 06:31 E. histolytica Antigen Negative (NEGATIVE) 09/28/17 06:31 Giardia lamblia Ag Negative (NEGATIVE) 09/28/17 06:31 Mycoplasma pneumon IgG Negative (NEGATIVE) 10/04/17 11:00 Blood Type A POSITIVE 09/28/17 07:00 Antibody Screen Negative 09/28/17 07:00 Crossmatch See Detail 09/28/17 07:00 - Plan (1) Atypical pneumonia Status: Acute Plan: FORTAZ IV, LEVAQUIN IV, RESPIRATORY TREATMENTS, SUPPLEMENTAL OXYGEN, 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 (2) Respiratory distress Status: Acute Plan: LASIX 40MG IV BID, BIPAP, INSERT BUITRAGO CATHETER, 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 (3) C. difficile colitis Status: Acute Plan: FLAGYL 500MG PO Q6H, NORMAL SALINE AT 125ML/HR, 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 (4) Urinary tract infection Status: Acute Qualifiers: Urinary tract infection type: acute cystitis Hematuria presence: with hematuria Qualified Code(s): N30.01 - Acute cystitis with hematuria Plan: FORTAZ 1GM IV Q12H, LEVAQUIN 250MG IV DAILY , NORMAL SALINE AT 125ML/HR, 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 (5) Anemia Status: Acute Qualifiers: Anemia type: iron deficiency Iron deficiency anemia type: unspecified iron deficiency Qualified Code(s): D50.9 - Iron deficiency anemia, unspecified Plan: MONITOR H&H (6) Chest pain Status: Acute Qualifiers: Chest pain type: unspecified Qualified Code(s): R07.9 - Chest pain, unspecified 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
[2017-10-05] MEDS: PROTONIX INJ 40 MG VIAL 80 MG in NS 100 ML IV 80 ML IV SCH ×3 (01:11→18:41)
[2017-10-05] MEDS ORDERED: POTASSIUM CHL 40 MEQ/NS 0.45% 500 ML IV PRN (01:58)
[2017-10-05] MEDS ORDERED: K-LYTE EFFERVESCENT PO PRN (01:58)
[2017-10-05] MEDS ORDERED: POTASSIUM CHL 60 MEQ/NS 0.45% 500 ML IV PRN (01:58)
[2017-10-05] MEDS ORDERED: K-RIDER 10 MEQ/NS 100 ML 10 MEQ/100 ML BAG IV PRN (01:58)
[2017-10-05] MEDS ORDERED: POTASSIUM CHLORIDE LIQ 20 MEQ UDC PO PRN (01:58)
[2017-10-05] MEDS ORDERED: MAGNESIUM SULFATE 1 GM/100 mL PREMIX 1 GM/100 ML BAG IV PRN (01:58)
[2017-10-05 05:11] LABS: ABG BASE EXCESS -2.6 mmol/L (-2.0-2.0); ABG HCO3 21.7 mmol/L (22-26)
[2017-10-05] MEDS: FLAGYL TAB 500 MG PO SCH ×4 (05:44→22:51)
[2017-10-05] MEDS: REQUIP PO SCH ×3 (05:45→21:34)
[2017-10-05 05:57] LABS: ALBUMIN 1.7 g/dL (3.4-5.0); CALCIUM 6.8 mg/dL (8.5-10.1); CARBON DIOXIDE 20.9 mmol/L (21-32); COR CA(FOR HYPOALB) 8.6 mg/dL (8.5-10.1); CREATININE 1.44 mg/dL (0.55-1.02); TOTAL PROTEIN 4.1 g/dL (6.4-8.2)
[2017-10-05 06:26] LABS: BASOPHILS % (AUTO) 0.1 % (0.2-1.0); EOSINOPHILS % (AUTO) 0.1 % (0.9-2.9); HEMATOCRIT 24.5 % (36.0-47.0); HEMOGLOBIN 7.8 g/dL (12.0-16.0); LYMPHOCYTES % (AUTO) 4.8 % (21.0-51.0); MEAN CORPUSCULAR HEMOGLOBIN 26.5 pg (27.0-34.0); MEAN CORPUSCULAR HGB CONC 31.6 g/dL (33.0-35.0); MEAN CORPUSCULAR VOLUME 83.7 fL (80.0-100.0); MEAN PLATELET VOLUME 9.4 fL (7.4-11.0); MONOCYTES # (AUTO) 1.3 x10^3/uL (0.3-0.8); MONOCYTES % (AUTO) 6.2 % (0.0-13.0); NEUTROPHILS # (AUTO) 18.8 x10^3/uL (2.2-4.8); NEUTROPHILS % (AUTO) 88.8 % (42.0-75.0); PLATELET COUNT 426 X10^3/uL (150.0-450.0); RED BLOOD COUNT 2.93 X10^6/uL (3.5-5.4); RED CELL DISTRIBUTION WIDTH 19.6 % (11.6-16.5); WHITE BLOOD COUNT 21.2 X10^3/uL (3.6-10.0)
--- NOTE | 2017-10-05 06:59 | RAD ---
HISTORY: Shortness of breath, wheezing Study: Chest AP portable Comparison: 10/04/2017, 10/03/2017 Findings: The heart remains mildly enlarged. The aorta is calcified. There is pulmonary venous congestion, prom inent interstitium, and likely a left pleural effusion all consistent with congestive heart failure. The alveolar infiltrate previously present in the left lower lobe is not present on this examination and may indicate some resolving asymmetric alveolar edema. The bony thorax is unremarkable. IMPRESSION: Moderate cardiomegaly with congestive heart failure slightly improved when compared with the prior ex amination Small left pleural effusion Reported By:
[2017-10-05 07:09] LABS: PLATELET MORPHOLOGY COMMENT NORMAL (NORMAL)
[2017-10-05] MEDS: ALBUMIN HUMAN 25%- 100ML 100 ML IV SCH (09:21)
[2017-10-05] MEDS: LASIX IVP SCH ×2 (09:23→21:35)
[2017-10-05] MEDS: PEPCID TAB 20 MG PO SCH (09:24)
[2017-10-05] MEDS: CORDARONE TAB 200 MG PO SCH (09:26)
[2017-10-05] MEDS: NAMENDA TAB 10 MG PO SCH ×2 (09:27→21:36)
[2017-10-05] MEDS: PLAVIX PO SCH (09:27)
[2017-10-05] MEDS: HEMOCYTE-PLUS PO SCH (09:28)
[2017-10-05] MEDS: ELIQUIS PO SCH ×2 (09:28→21:34)
[2017-10-05] MEDS: SINGULAIR TAB 10 MG PO SCH (09:38)
[2017-10-05] MEDS: DUONEB 0.5 MG/3 MG NEB SCH ×4 (09:39→20:20)
[2017-10-05] MEDS: PULMICORT NEB TX 0.5 MG NEB SCH ×2 (09:41→20:20)
[2017-10-05] MEDS: IMODIUM CAP 2 MG PO SCH ×4 (09:41→21:36)
[2017-10-05] MEDS: ARICEPT TAB 10 MG PO SCH (09:42)
[2017-10-05] MEDS ORDERED: MAGIC MOUTHWASH MT PRN (10:25)
[2017-10-05] MEDS: LEVAQUIN PREMIX IV 250 MG 250 MG/50 ML BAG IV SCH (10:37)
[2017-10-05] MEDS ORDERED: NS 100 ML IV + SPIKE MINIBAG* 100 ML IV ONE (10:39)
[2017-10-05] MEDS ORDERED: PHARMACY CONSULT - VANCOMYCIN XX SCH (11:00)
[2017-10-05] MEDS: DIFLUCAN 200 MG IV PREMIX* 200 MG/100 ML BAG IV SCH (11:05)
[2017-10-05] MEDS ORDERED: BUTT CREAM (COMPOUND) TOP PRN (12:16)
[2017-10-05 12:27] LABS: B-TYPE NATRIURETIC PEPTIDE 98.8 pg/mL (0-79)
[2017-10-05 12:39] LABS: CKMB % 1.5 % (<4); CREATINE KINASE MB 1.5 ng/mL (0-4.0); TROPONIN I 0.03 ng/mL (0-1.5)
[2017-10-05] MEDS: VANCOMYCIN HCL 1 GM VIAL 1 GM in D5W 250 ML IV 250 ML IV SCH (13:33)
[2017-10-05 15:25] LABS: CKMB % 1.6 % (<4); CREATINE KINASE MB 1.6 ng/mL (0-4.0); TROPONIN I 0.02 ng/mL (0-1.5)
[2017-10-05] MEDS ORDERED: XYLOCAINE 1 % (PLAIN) ONE (18:02)
--- NOTE | 2017-10-05 18:37 | RAD ---
HISTORY: 82-year-old female for verification of central line placement Study: Frontal view of the chest. Comparison: Chest radiograph this date at 6:41 a.m. Findings: Interval placement left subclavian central venous catheter with distal tip overlying the superior cav oatrial junction. In the comparison interval there is hyperlucent appearance of the right sweetie thorax with mild elevation of the right hemidiaphragm with unchanged appearance of hazy opacities throughou t the left sweetie thorax. The remainder of the examination is unchanged. IMPRESSION: 1. Central venous catheter in apparent good position as described. 2. Interval development of mild hyperlucency of the right sweetie thorax as compared to the left with mi ld volume loss which can be seen with partial collapse and anterior pneumothorax. Recommend true PA a nd lateral views for complete evaluation. Reported By:
[2017-10-05 19:05] LABS: CKMB % 1.5 % (<4); CREATINE KINASE 98 Units/L (26-192); CREATINE KINASE MB 1.5 ng/mL (0-4.0); TROPONIN I < 0.02 ng/mL (0-1.5)
[2017-10-05] MEDS: NEURONTIN CAP 300 MG PO SCH (21:34)
[2017-10-05] MEDS: NYSTATIN POWDER TOP SCH (21:35)
[2017-10-05] MEDS: PRAVACHOL PO SCH (21:36)
[2017-10-05] MEDS: NS 1000 ML 1,000 ML IV SCH (22:51)
[2017-10-06] MEDS: PROTONIX INJ 40 MG VIAL 80 MG in NS 100 ML IV 80 ML IV SCH (04:23)
[2017-10-06] MEDS: FLAGYL TAB 500 MG PO SCH ×4 (04:23→22:17)
[2017-10-06] MEDS: REQUIP PO SCH ×3 (05:02→21:55)
[2017-10-06 05:44] LABS: BASOPHILS # (AUTO) 0.1 X10^3/uL (0.0-0.1); BASOPHILS % (AUTO) 0.5 % (0.2-1.0); EOSINOPHILS % (AUTO) 0.3 % (0.9-2.9); HEMATOCRIT 21.2 % (36.0-47.0); HEMOGLOBIN 7.1 g/dL (12.0-16.0); LYMPHOCYTES # (AUTO) 1.2 X10^3/uL (1.3-2.9); LYMPHOCYTES % (AUTO) 6.6 % (21.0-51.0); MEAN CORPUSCULAR HEMOGLOBIN 27.4 pg (27.0-34.0); MEAN CORPUSCULAR HGB CONC 33.6 g/dL (33.0-35.0); MEAN CORPUSCULAR VOLUME 81.4 fL (80.0-100.0); MEAN PLATELET VOLUME 8.6 fL (7.4-11.0); MONOCYTES # (AUTO) 1.2 x10^3/uL (0.3-0.8); MONOCYTES % (AUTO) 6.8 % (0.0-13.0); NEUTROPHILS # (AUTO) 14.9 x10^3/uL (2.2-4.8); NEUTROPHILS % (AUTO) 85.8 % (42.0-75.0); PLATELET COUNT 410 X10^3/uL (150.0-450.0); RED CELL DISTRIBUTION WIDTH 20.3 % (11.6-16.5); WHITE BLOOD COUNT 17.4 X10^3/uL (3.6-10.0)
[2017-10-06 05:54] LABS: ALBUMIN 1.7 g/dL (3.4-5.0); CALCIUM 6.6 mg/dL (8.5-10.1); CARBON DIOXIDE 23.5 mmol/L (21-32); COR CA(FOR HYPOALB) 8.4 mg/dL (8.5-10.1); CREATININE 1.33 mg/dL (0.55-1.02); TOTAL PROTEIN 4.1 g/dL (6.4-8.2)
[2017-10-06 06:18] LABS: HYPOCHROMASIA 2+; PLATELET MORPHOLOGY COMMENT NORMAL (NORMAL)
--- NOTE | 2017-10-06 07:54 | RAD ---
HISTORY: Shortness of breath, wheezing. Suspected anterior pneumothorax on the right Prior history o f asthma, COPD, hypertension, [place] and anemia. Prior surgical history of left mastectomy. Study: Two-view chest Comparison: 10/05/2017. Findings: Left-sided subclavian line is present with the tip in the lower SVC. Is again evidence of a left mast ectomy with a left breast implant. Trachea is midline. There is cardiomegaly with pulmonary vascular congestion and signs of bilateral CHF/perihilar edema. No pneumothorax is seen. Moderate bilateral pl eural effusions are seen on the lateral view. IMPRESSION: CHF/perihilar edema with bilateral pleural effusions. No evidence of pneumothorax. Reported By:
[2017-10-06] MEDS: PLAVIX PO SCH (08:30)
[2017-10-06] MEDS: LEVAQUIN PREMIX IV 250 MG 250 MG/50 ML BAG IV SCH (08:30)
[2017-10-06] MEDS: DUONEB 0.5 MG/3 MG NEB SCH ×4 (08:49→22:02)
[2017-10-06] MEDS: PULMICORT NEB TX 0.5 MG NEB SCH ×2 (08:49→22:03)
[2017-10-06] MEDS: HEMOCYTE-PLUS PO SCH (09:00)
[2017-10-06] MEDS: VANCOMYCIN HCL 1 GM VIAL 1 GM in D5W 250 ML IV 250 ML IV SCH (09:00)
[2017-10-06] MEDS: ARICEPT TAB 10 MG PO SCH (09:00)
[2017-10-06] MEDS: NAMENDA TAB 10 MG PO SCH ×2 (09:00→21:55)
[2017-10-06] MEDS: IMODIUM CAP 2 MG PO SCH ×4 (09:00→21:56)
[2017-10-06] MEDS: ELIQUIS PO SCH (09:00)
[2017-10-06] MEDS: SINGULAIR TAB 10 MG PO SCH (09:00)
[2017-10-06] MEDS: NYSTATIN POWDER TOP SCH ×2 (09:00→21:57)
[2017-10-06] MEDS: PEPCID TAB 20 MG PO SCH (09:00)
[2017-10-06] MEDS: ALBUMIN HUMAN 25%- 100ML 200 ML IV SCH (09:00)
[2017-10-06] MEDS: CORDARONE TAB 200 MG PO SCH (09:00)
[2017-10-06] MEDS: DIFLUCAN 200 MG IV PREMIX* 200 MG/100 ML BAG IV SCH (09:00)
[2017-10-06] MEDS: LASIX IVP SCH ×2 (09:00→21:56)
[2017-10-06] MEDS ORDERED: BENADRYL INJ 50 MG VIAL IVP PRN (10:25)
[2017-10-06] MEDS ORDERED: LASIX IVP ONE (13:00)
[2017-10-06] MEDS: NS 500 ML IV 500 ML IV ONE ×2 (13:38→13:41)
[2017-10-06] MEDS: TYLENOL 325 MG TAB PO PRN ×2 (13:54→23:39)
[2017-10-06] MEDS: ZOFRAN INJ 4 MG VIAL IVP PRN (19:46)
[2017-10-06] MEDS: PRAVACHOL PO SCH (21:56)
[2017-10-06] MEDS: NEURONTIN CAP 300 MG PO SCH (21:56)
[2017-10-07] MEDS: LASIX IVP SCH ×2 (03:43→10:00)
[2017-10-07] MEDS: REQUIP PO SCH ×2 (05:21→13:11)
[2017-10-07] MEDS: FLAGYL TAB 500 MG PO SCH ×3 (05:21→17:00)
[2017-10-07 06:16] LABS: ABG ALLEN TEST POS; ABG BASE EXCESS -1.6 mmol/L (-2.0-2.0); ABG HCO3 22.9 mmol/L (22-26)
[2017-10-07 06:40] LABS: BASOPHILS % (AUTO) 0.3 % (0.2-1.0); EOSINOPHILS # (AUTO) 0.3 x10^3/uL (0.0-0.2); EOSINOPHILS % (AUTO) 2.2 % (0.9-2.9); HEMATOCRIT 32.7 % (36.0-47.0); HEMOGLOBIN 11.2 g/dL (12.0-16.0); LYMPHOCYTES # (AUTO) 1.2 X10^3/uL (1.3-2.9); LYMPHOCYTES % (AUTO) 8.9 % (21.0-51.0); MEAN CORPUSCULAR HEMOGLOBIN 28.5 pg (27.0-34.0); MEAN CORPUSCULAR HGB CONC 34.1 g/dL (33.0-35.0); MEAN CORPUSCULAR VOLUME 83.4 fL (80.0-100.0); MEAN PLATELET VOLUME 8.5 fL (7.4-11.0); MONOCYTES # (AUTO) 1.1 x10^3/uL (0.3-0.8); MONOCYTES % (AUTO) 8.3 % (0.0-13.0); NEUTROPHILS % (AUTO) 80.3 % (42.0-75.0); PLATELET COUNT 374 X10^3/uL (150.0-450.0); RED BLOOD COUNT 3.92 X10^6/uL (3.5-5.4); RED CELL DISTRIBUTION WIDTH 18.4 % (11.6-16.5); WHITE BLOOD COUNT 13.7 X10^3/uL (3.6-10.0)
[2017-10-07 06:47] LABS: LACTIC ACID 0.8 mmol/L (0.4-2.0)
[2017-10-07 06:50] LABS: ALANINE AMINOTRANSFERASE 10 Units/L (12-78); ALBUMIN 1.7 g/dL (3.4-5.0); ALKALINE PHOSPHATASE 28 Units/L (46-116); ASPARTATE AMINO TRANSFERASE 13 Units/L (15-37); BLOOD UREA NITROGEN 17 mg/dL (7-18); CALCIUM 6.9 mg/dL (8.5-10.1); CARBON DIOXIDE 22.5 mmol/L (21-32); CHLORIDE 113 mmol/L (98-107); COR CA(FOR HYPOALB) 8.7 mg/dL (8.5-10.1); CREATININE 1.18 mg/dL (0.55-1.02); MAGNESIUM 1.8 mg/dL (1.7-2.9); SODIUM 145 mmol/L (136-145); TOTAL PROTEIN 4.2 g/dL (6.4-8.2); eGFR BLACK RACES 57 (>60); eGFR NON BLACK RACES 47 (>60)
[2017-10-07] MEDS: PULMICORT NEB TX 0.5 MG NEB SCH (09:25)
[2017-10-07] MEDS: DUONEB 0.5 MG/3 MG NEB SCH ×3 (09:25→16:03)
[2017-10-07] MEDS: NAMENDA TAB 10 MG PO SCH (09:53)
[2017-10-07] MEDS: CORDARONE TAB 200 MG PO SCH (09:54)
[2017-10-07] MEDS: HEMOCYTE-PLUS PO SCH (09:55)
[2017-10-07] MEDS: SINGULAIR TAB 10 MG PO SCH (09:56)
[2017-10-07] MEDS: IMODIUM CAP 2 MG PO SCH ×3 (09:56→17:56)
[2017-10-07] MEDS: PEPCID TAB 20 MG PO SCH (09:56)
[2017-10-07] MEDS: NYSTATIN POWDER TOP SCH (09:57)
[2017-10-07] MEDS: ARICEPT TAB 10 MG PO SCH (09:57)
[2017-10-07] MEDS: VANCOMYCIN HCL 1 GM VIAL 1 GM in D5W 250 ML IV 250 ML IV SCH (09:58)
[2017-10-07] MEDS: DIFLUCAN 200 MG IV PREMIX* 200 MG/100 ML BAG IV SCH (09:59)
[2017-10-07] MEDS: LEVAQUIN PREMIX IV 250 MG 250 MG/50 ML BAG IV SCH (09:59)
[2017-10-07] MEDS: ALBUMIN HUMAN 25%- 100ML 200 ML IV SCH (09:59)
[2017-10-07 16:38] VITALS: BP 140/65
[2017-10-08] MEDS ORDERED: PHARMACY COMMENT IV ONE (08:30)
== END 2017-10-07 17:40 | disposition short-term general hospital (02) | DRG 371 ==
LOC: ER 06:21 → ICU 09:15 → OBSVTOIN 09-30 09:00 → MED/SURG 09-30 12:15
PROVIDERS: ADMIT Internal Medicine; ATTEND Internal Medicine
PROC: 05H633Z Insertion of Infusion Device into Left Subclavian Vein, Percutaneous Approach (ICD-10-PCS; principal; 2017-10-05)
PROC: 30243N1 Transfusion of Nonautologous Red Blood Cells into Central Vein, Percutaneous Approach (ICD-10-PCS; 2017-10-06)
DX: A04.72 Enterocolitis due to Clostridium difficile, not specified as recurrent (principal); J96.90 Respiratory failure, unspecified, unspecified whether with hypoxia or hypercapnia; N30.01 Acute cystitis with hematuria; J44.9 Chronic obstructive pulmonary disease, unspecified; R62.7 Adult failure to thrive; D50.9 Iron deficiency anemia, unspecified; R13.10 Dysphagia, unspecified; R10.13 Epigastric pain; E88.09 Other disorders of plasma-protein metabolism, not elsewhere classified; I87.2 Venous insufficiency (chronic) (peripheral); R07.89 Other chest pain; E87.8 Other disorders of electrolyte and fluid balance, not elsewhere classified
CPT/HCPCS: 36415; 36430; 36556; 36600; 71045; 71046; 74176; 80053; 80061; 81001; 82274; 82550; 82553; 82803; 83605; 83630; 83735; 83880; 84132; 84484; 85014; 85018; 85025; 85610; 85730; 86738; 86850; 86900; 86901; 86922; 87040; 87045; 87070; 87086; 87205; 87328; 87329; 87336; 87427; 87449; 87493; 93005; 93306; 94640; 94660; 96365; 96367; 96374; 96375; 99238; 99284; A4222; A4618; A7030; C9113; G8990; G8991; P9016; P9047; G0378; J0696; J0713; J1200; J1450; J1940; J1956; J2001; J2405; J2550; J3370; J7620; J7626

== ENCOUNTER → 2017-11-24 | Outpatient (CLI) | payer OTHER, MEDICARE ==
[2017-11-07 12:43] VITALS: BP 118/56
[2017-11-24 20:41] LABS: CRYPTOSPORIDIUM PARVUM ANTIGEN NEGATIVE (NEGATIVE); GIARDIA LAMBLIA ANTIGEN NEGATIVE (NEGATIVE)
[2017-11-24 20:42] LABS: STOOL FOR WBC POSITIVE (NEGATIVE)
== END ==
LOC: LAB 19:33
PROVIDERS: ATTEND Internal Medicine
DX: R19.7 Diarrhea, unspecified (principal); R19.5 Other fecal abnormalities
CPT/HCPCS: 82274; 83630; 87045; 87328; 87329; 87336; 87449; 87493

== ENCOUNTER 2017-12-20 15:01 | Inpatient (IN) ==
--- NOTE | 2017-12-20 15:08 | DR.GENAD ---
HPI - Complaint/Symptoms Chief Complaint Doctors Comments: Patient presents to the ED with complaint of low BP for two to three days. She has a history of cardiac stent three months ago. She complains of pain to upper back. PMH - PMH Past Medical History: Asthma, COPD, Coronary Artery Disease, Dyslipidemia, Hypertension, [place] Past Surgical History: Yes Surgical History: Angioplasty/Stents, Hysterectomy, Mastectomy, Other - Family History Family Medical History: [place], Hypertension - Social History Do you use any recreational Drugs:: No ROS - Review of Systems Constitutional: negative: Diaphoresis Eyes: No Symptoms Reported ENTM: No Symptoms Reported Respiratoy: No Symptoms Reported Cardiovascular: No Symptoms Reported Gastrointestinal/Abdominal: No Symptoms Reported Genitourinary: No Symptoms Reported Neurological: No Symptoms Reported Musculoskeletal: No Symptoms Reported Integumentary: No Symptoms Reported Hematologic/Lymphatic: No Symptoms Reported Endocrine: No Symptoms Reported Psychiatric: No Symptoms Reported All Other Systems: Reviewed and Negative PE - General Limitations: No Limitations General Appearance: Alert, In No Apparent Distress - Head Head Exam: Normal Inspection, Atraumatic - Eyes Eye exam: Normal Appearance, PERRL, EOMI - ENT ENT Exam: Normal Exam External Ear Exam: Normal External Inspection TM/Canal Exam: Bilateral Normal Nose Exam: Normal Nose Exam, Sinus Tenderness Mouth Exam: Normal Inspection Throat Exam: Normal Inspection - Neck Neck Exam: Normal Inspection, Full ROM - Chest Chest Inspection: Normal Inspection - Respiratory Respiratory Exam: Normal Lung Sounds Bilat Respiratory Exam: Bilateral Clear to Auscultation - Cardiovascular Cardiovascular Exam: Bradycardia (asymptomatic) - Abdominal Exam Abdominal Exam: Normal Inspection, Normal Bowel Sounds Abdominal Tenderness: negative: RUQ, RLQ, LUQ, LLQ, Epigastrium, Suprapubic, Diffuse, Mild, Moderate, Severe, Other - Extremities Extremities Exam: Normal Inspection, Full ROM - Back Back Exam: Normal Inspection, Full ROM - Neurologic Neurological Exam: Alert, Oriented X3, CN II-XII Intact - Psychiatric Psychiatric Exam: Normal Affect, Normal Mood - Skin Skin Exam: Warm, Dry, Intact - Vital Signs Vitals: Temperature 102.2 F Pulse Rate [Right Radial] 104 Pulse Rate 97 Respiratory Rate 22 Blood Pressure [Left Calf] 118/56 Blood Pressure [Left Arm] 117/50 Blood Pressure [Right Calf] 168/77 Blood Pressure [Right Arm] 104/59 Blood Pressure 81/46 O2 Sat by Pulse Oximetry 96 Course - Reevaluation 1st: Improved - Consultation Called: 16:50 (Dr Cohen agreed to admit for further treatment) ROR - Labs Reviewed Result Diagrams: 12/20/17 15:25 12/20/17 15:25 - XRAY XRAY Interpreted by: Radiologist (Chest: The trachea is midline. The cardiac silhouette is unremarkable. Surgical clips overlying the left axilla. Left lower lower lobe infiltrate appears slightly improved from prior exam. The right lung is clear. No obvious pleural effusion or penumothorax. Surgical clips within the right upper abdomen. The bony thorax is unremarkable. Impression: Left lower lobe infiltrate appears slightly improved from prior exam ) - Labs Reviewed Laboratory: WBC 10.2 X10^3/uL (3.6-10.0) H 12/20/17 15:25 RBC 2.96 X10^6/uL (3.5-5.4) L 12/20/17 15:25 Hgb 8.6 g/dL (12.0-16.0) L 12/20/17 15:25 Hct 25.5 % (36.0-47.0) L 12/20/17 15:25 MCV 86.3 fL (80.0-100.0) 12/20/17 15:25 MCH 28.9 pg (27.0-34.0) 12/20/17 15:25 MCHC 33.5 g/dL (33.0-35.0) 12/20/17 15:25 RDW 17.8 % (11.6-16.5) H 12/20/17 15:25 Plt Count 514 X10^3/uL (150.0-450.0) H 12/20/17 15:25 MPV 7.8 fL (7.4-11.0) 12/20/17 15:25 Neut % (Auto) 81.8 % (42.0-75.0) H 12/20/17 15:25 Lymph % (Auto) 9.8 % (21.0-51.0) L 12/20/17 15:25 [place] % (Auto) 6.5 % (0.0-13.0) 12/20/17 15:25 Eos % (Auto) 1.0 % (0.9-2.9) 12/20/17 15:25 Baso % (Auto) 0.9 % (0.2-1.0) 12/20/17 15:25 Neut # (Auto) 8.3 x10^3/uL (2.2-4.8) H 12/20/17 15:25 Lymph # (Auto) 1.0 X10^3/uL (1.3-2.9) L 12/20/17 15:25 [place] # (Auto) 0.7 x10^3/uL (0.3-0.8) 12/20/17 15:25 Eos # (Auto) 0.1 x10^3/uL (0.0-0.2) 12/20/17 15:25 Baso # (Auto) 0.1 X10^3/uL (0.0-0.1) 12/20/17 15:25 Absolute Nucleated RBC 0.0 /100WBC 12/20/17 15:25 INR Target Range - 12/20/17 15:25 INR 1.11 (0.8-1.3) 12/20/17 15:25 Sodium 141 mmol/L (136-145) 12/20/17 15:25 Corrected Sodium TNP 12/20/17 15:25 Potassium 4.6 mmol/L (3.5-5.1) 12/20/17 15:25 Chloride 106 mmol/L (98-107) 12/20/17 15:25 Carbon Dioxide 21.1 mmol/L (21-32) 12/20/17 15:25 BUN 23 mg/dL (7-18) H 12/20/17 15:25 Creatinine 1.22 mg/dL (0.55-1.02) H 12/20/17 15:25 Est GFR (MDRD) Af Amer 55 (>60) L 12/20/17 15:25 Est GFR (MDRD) Non-Af 45 (>60) L 12/20/17 15:25 Glucose 93 mg/dL (65-99) 12/20/17 15:25 Lactic Acid 1.9 mmol/L (0.4-2.0) 12/20/17 15:25 Calcium 8.2 mg/dL (8.5-10.1) L 12/20/17 15:25 Corrected Calcium 9.3 mg/dL (8.5-10.1) 12/20/17 15:25 Magnesium 2.2 mg/dL (1.7-2.9) 12/20/17 15:25 Total Bilirubin 0.20 mg/dL (0.2-1.0) 12/20/17 15:25 AST 26 Units/L (15-37) 12/20/17 15:25 ALT 18 Units/L (12-78) 12/20/17 15:25 Alkaline Phosphatase 66 Units/L (46-116) 12/20/17 15:25 Creatine Kinase 35 Units/L (26-192) 12/20/17 15:25 CK-MB (CK-2) < 1.0 ng/mL (0-4.0) 12/20/17 15:25 CK/CKMB % Calc 2.9 % (<4) 12/20/17 15:25 Troponin I < 0.02 ng/mL (0-1.5) 12/20/17 15:25 Total Protein 7.2 g/dL (6.4-8.2) 12/20/17 15:25 Albumin 2.6 g/dL (3.4-5.0) L 12/20/17 15:25 Globulin 4.6 g/dL (2.5-4.5) H 12/20/17 15:25 Albumin/Globulin Ratio 0.6 Ratio (1.1-2.1) L 12/20/17 15:25 Specimen Type Catherized urine 12/20/17 16:02 Urine Color Yellow (YELLOW) 12/20/17 16:02 Urine Appearance Slightly hazy (CLEAR) 12/20/17 16:02 Urine pH 6.5 (5.0 - 8.0) 12/20/17 16:02 Ur Specific Gamaliel 1.010 (1.000-1.030) 12/20/17 16:02 Urine Protein 2+ (NEGATIVE) 12/20/17 16:02 Urine Glucose (UA) Negative (NEGATIVE) 12/20/17 16: Urine Ketones Negative (NEGATIVE) 12/20/17 16:02 Urine Occult Blood 2+ (NEGATIVE) 12/20/17 16:02 Urine Nitrite Negative (NEGATIVE) 12/20/17 16:02 Urine Bilirubin Negative (NEGATIVE) 12/20/17 16: Urine Urobilinogen Normal (NORMAL) 12/20/17 16:02 Ur Leukocyte Esterase 2+ (NEGATIVE) 12/20/17 16:02 Urine RBC 3-5 /HPF (NONE SEEN) 12/20/17 16:02 Urine WBC 3-5 /HPF (NONE SEEN) 12/20/17 16:02 Ur Squamous Epith Cells Few /HPF (NEGATIVE) 12/20/17 16:02 Urine Bacteria Trace /HPF (NEGATIVE) 12/20/17 16:02 Hyaline Casts Rare /LPF (NEGATIVE) 12/20/17 16:02 Urine Mucus Few /HPF (NEGATIVE) 12/20/17 16:02 Ur Culture Indicated? No/not indicated 12/20/17 16:02 - Diagnosis Discharge Problem: Hypotension Qualifiers: Hypotension type: unspecified hypotension type Qualified Code(s): I95.9 - Hypotension, unspecified Left lower lobe pneumonia Qualifiers: Pneumonia type: due to unspecified organism Qualified Code(s): J18.1 - Lobar pneumonia, unspecified organism - Discharge Plan Condition: Stable - Follow ups/Referrals Follow ups/Referrals: Derik Cohen [Primary Care Provider] - 3 days - Instructions
[2017-12-20] MEDS ORDERED: NS 1000 ML 1,000 ML IV ONE (15:10)
[2017-12-20] MEDS ORDERED: NS 1000 ML 1,000 ML ONE ×2 (15:18→17:15)
--- NOTE | 2017-12-20 15:32 | RAD ---
HISTORY: Hypotension. Study: Portable chest. Comparison: Chest x-ray dated November 06, 2017. Findings: The trachea is midline. The cardiac silhouette is unremarkable. Surgical clips overlying the left a xilla. Left lower lobe infiltrate appears slightly improved from prior exam. The right lung is clear. No obvious pleural effusion or pneumothorax. Surgical clips within the right upper abdomen. The bon y thorax is unremarkable. IMPRESSION: Left lower lobe infiltrate appears slightly improved from prior exam. Reported By:
[2017-12-20] MEDS ORDERED: OFIRMEV IV 1000 MG VIAL 500 MG/50 ML VIAL IV PRN (15:33)
[2017-12-20 15:38] VITALS: BMI 23.4
[2017-12-20 15:40] LABS: BASOPHILS # (AUTO) 0.1 X10^3/uL (0.0-0.1); BASOPHILS % (AUTO) 0.9 % (0.2-1.0); EOSINOPHILS # (AUTO) 0.1 x10^3/uL (0.0-0.2); HEMATOCRIT 25.5 % (36.0-47.0); HEMOGLOBIN 8.6 g/dL (12.0-16.0); LYMPHOCYTES % (AUTO) 9.8 % (21.0-51.0); MEAN CORPUSCULAR HEMOGLOBIN 28.9 pg (27.0-34.0); MEAN CORPUSCULAR HGB CONC 33.5 g/dL (33.0-35.0); MEAN CORPUSCULAR VOLUME 86.3 fL (80.0-100.0); MEAN PLATELET VOLUME 7.8 fL (7.4-11.0); MONOCYTES # (AUTO) 0.7 x10^3/uL (0.3-0.8); MONOCYTES % (AUTO) 6.5 % (0.0-13.0); NEUTROPHILS # (AUTO) 8.3 x10^3/uL (2.2-4.8); NEUTROPHILS % (AUTO) 81.8 % (42.0-75.0); PLATELET COUNT 514 X10^3/uL (150.0-450.0); RED BLOOD COUNT 2.96 X10^6/uL (3.5-5.4); RED CELL DISTRIBUTION WIDTH 17.8 % (11.6-16.5); WHITE BLOOD COUNT 10.2 X10^3/uL (3.6-10.0)
[2017-12-20 15:59] LABS: BLOOD UREA NITROGEN 23 mg/dL (7-18); CALCIUM 8.2 mg/dL (8.5-10.1); CARBON DIOXIDE 21.1 mmol/L (21-32); CHLORIDE 106 mmol/L (98-107); CREATININE 1.22 mg/dL (0.55-1.02); SODIUM 141 mmol/L (136-145); TROPONIN I < 0.02 ng/mL (0-1.5); eGFR NON BLACK RACES 45 (>60)
[2017-12-20] MEDS: TYLENOL 500 MG TAB EXTRA STRENGTH PO PRN ×2 (16:00→23:57)
[2017-12-20 16:03] LABS: ALANINE AMINOTRANSFERASE 18 Units/L (12-78); ALBUMIN 2.6 g/dL (3.4-5.0); ALKALINE PHOSPHATASE 66 Units/L (46-116); ASPARTATE AMINO TRANSFERASE 26 Units/L (15-37); CKMB % 2.9 % (<4); COR CA(FOR HYPOALB) 9.3 mg/dL (8.5-10.1); CREATINE KINASE 35 Units/L (26-192); CREATINE KINASE MB < 1.0 ng/mL (0-4.0); MAGNESIUM 2.2 mg/dL (1.7-2.9); TOTAL PROTEIN 7.2 g/dL (6.4-8.2)
[2017-12-20 16:07] LABS: BILIRUBIN,URINE NEGATIVE (NEGATIVE); BLOOD/HEMOGLOBIN,URINE 2+ (NEGATIVE); GLUCOSE, URINE NEGATIVE (NEGATIVE); KETONES,URINE NEGATIVE (NEGATIVE); LEUKOCYTE ESTERASE ,URINE 2+ (NEGATIVE); NITRITES,URINE NEGATIVE (NEGATIVE); PH,URINE 6.5 (5.0 - 8.0); PROTEIN,URINE 2+ (NEGATIVE); UROBILINOGEN,URINE NORMAL (NORMAL)
[2017-12-20 16:08] LABS: APPEARANCE,URINE SLIGHTLY HAZY (CLEAR); COLOR,URINE YELLOW (YELLOW)
[2017-12-20 16:15] LABS: BACTERIA,URINE TRACE /HPF (NEGATIVE); SQUAMOUS EPITHELIAL CELL,UR FEW /HPF (NEGATIVE)
[2017-12-20 16:16] LABS: HYALINE CASTS, URINE RARE /LPF (NEGATIVE); MUCUS,URINE FEW /HPF (NEGATIVE)
[2017-12-20] MEDS ORDERED: TUSSIONEX PENNKINETIC SUSP PO PRN (17:15)
[2017-12-20] MEDS: ROCEPHIN 1 GRAM IV PREMIX 1 G/50 ML IV.SOLN. IV SCH (17:24)
--- NOTE | 2017-12-20 17:55 | RAD ---
PA and lateral Chest Indication: Weakness and fever Comparison: Radiograph performed earlier on same day Findings: The trachea is midline. The cardiac silhouette is unremarkable. Again there is slight improved aera tion of the left lower lobe. No new airspace opacity pleural effusion or pneumothorax. Interstitial c hanges are similar to prior exam. Moderate pleural parenchymal scarring within the left lung apex. T he bony thorax is unremarkable. IMPRESSION: 1. Essentially unchanged examination from previous examination with mild improved aeration of the le ft lung base. Reported By:
[2017-12-20] MEDS ORDERED: SALINE 3% 15 ML NEB TX ONE (18:24)
[2017-12-20] MEDS ORDERED: SALINE 3% 15 ML NEB TX NEB ONE (18:26)
[2017-12-20] MEDS ORDERED: NS 1/2 1000 ML IV 1,000 ML IV ONE (18:27)
[2017-12-20] MEDS: NS 1/2 1000 ML IV 1,000 ML IV SCH (18:29)
[2017-12-20] MEDS: ROBITUSSIN DM PO SCH (20:31)
[2017-12-20] MEDS: VIBRAMYCIN 100 MG in NS 100 ML IV + SPIKE MINIBAG* 100 ML IV SCH (20:31)
[2017-12-20] MEDS: DUONEB 0.5 MG/3 MG NEB SCH (21:54)
[2017-12-20] MEDS: PULMICORT NEB TX 0.5 MG NEB SCH (21:54)
[2017-12-21] MEDS: DUONEB 0.5 MG/3 MG NEB SCH ×6 (01:13→20:49)
[2017-12-21 05:20] LABS: BASOPHILS # (AUTO) 0.1 X10^3/uL (0.0-0.1); BASOPHILS % (AUTO) 0.8 % (0.2-1.0); EOSINOPHILS % (AUTO) 0.7 % (0.9-2.9); HEMATOCRIT 22.3 % (36.0-47.0); HEMOGLOBIN 7.6 g/dL (12.0-16.0); LYMPHOCYTES # (AUTO) 1.2 X10^3/uL (1.3-2.9); MEAN CORPUSCULAR HEMOGLOBIN 28.9 pg (27.0-34.0); MEAN CORPUSCULAR HGB CONC 33.9 g/dL (33.0-35.0); MEAN CORPUSCULAR VOLUME 85.4 fL (80.0-100.0); MEAN PLATELET VOLUME 8.2 fL (7.4-11.0); MONOCYTES # (AUTO) 0.8 x10^3/uL (0.3-0.8); MONOCYTES % (AUTO) 11.5 % (0.0-13.0); NEUTROPHILS # (AUTO) 4.8 x10^3/uL (2.2-4.8); PLATELET COUNT 455 X10^3/uL (150.0-450.0); RED BLOOD COUNT 2.61 X10^6/uL (3.5-5.4); RED CELL DISTRIBUTION WIDTH 17.2 % (11.6-16.5); WHITE BLOOD COUNT 6.9 X10^3/uL (3.6-10.0)
[2017-12-21] MEDS ORDERED: NS 1/2 1000 ML IV 1,000 ML IV ONE (05:36)
[2017-12-21 05:50] LABS: ALANINE AMINOTRANSFERASE 12 Units/L (12-78); ALBUMIN 2.1 g/dL (3.4-5.0); ALKALINE PHOSPHATASE 56 Units/L (46-116); ASPARTATE AMINO TRANSFERASE 23 Units/L (15-37); BLOOD UREA NITROGEN 17 mg/dL (7-18); CARBON DIOXIDE 21.5 mmol/L (21-32); CHLORIDE 109 mmol/L (98-107); COR CA(FOR HYPOALB) 9.5 mg/dL (8.5-10.1); CREATININE 0.88 mg/dL (0.55-1.02); SODIUM 141 mmol/L (136-145); TOTAL PROTEIN 6.1 g/dL (6.4-8.2); eGFR NON BLACK RACES > 60 (>60)
[2017-12-21 06:06] LABS: HYPOCHROMASIA SLIGHT; OVALOCYTES SLIGHT; PLATELET MORPHOLOGY COMMENT NORMAL (NORMAL); POIKILOCYTOSIS SLIGHT
--- NOTE | 2017-12-21 06:47 | RAD ---
HISTORY: Follow-up pneumonia Study: Chest AP portable Comparison: 12/20/2017 Findings: The heart is within normal limits in size. The maría are normal. The lungs are well inflated and now c lear. No acute infiltrates or pleural effusions are identified. The bony thorax is unremarkable. IMPRESSION: Lungs now clear Reported By:
[2017-12-21] MEDS: NS 1/2 1000 ML IV 1,000 ML IV SCH (07:28)
[2017-12-21] MEDS: TYLENOL 500 MG TAB EXTRA STRENGTH PO PRN ×2 (08:25→17:02)
[2017-12-21] MEDS: ROCEPHIN 1 GRAM IV PREMIX 1 G/50 ML IV.SOLN. IV SCH (08:28)
[2017-12-21] MEDS: ROBITUSSIN DM PO SCH ×4 (08:28→20:43)
[2017-12-21] MEDS: VIBRAMYCIN 100 MG in NS 100 ML IV + SPIKE MINIBAG* 100 ML IV SCH ×2 (08:28→20:40)
[2017-12-21] MEDS ORDERED: [UNRECOGNIZED DRUG - MIXTURE] PO SCH (09:00)
[2017-12-21] MEDS ORDERED: PATIENT'S HOME MEDICATION (Famotidine [Famotidine] 40 MG) PO SCH (09:00)
[2017-12-21] MEDS: ARICEPT TAB 10 MG PO SCH (09:26)
[2017-12-21] MEDS: CORDARONE TAB 200 MG PO SCH (09:26)
[2017-12-21] MEDS: HEMOCYTE-PLUS PO SCH (09:27)
[2017-12-21] MEDS: NAMENDA TAB 10 MG PO SCH ×2 (09:27→20:41)
[2017-12-21] MEDS: PEPCID TAB 20 MG PO SCH ×2 (09:27→20:42)
[2017-12-21] MEDS: LASIX PO SCH (09:27)
[2017-12-21] MEDS: MEGACE PO SCH ×2 (09:27→20:41)
[2017-12-21] MEDS: VSL#3 PO SCH (09:28)
[2017-12-21] MEDS: SINGULAIR TAB 10 MG PO SCH (09:28)
[2017-12-21] MEDS: PLAVIX PO SCH (09:28)
[2017-12-21] MEDS: PULMICORT NEB TX 0.5 MG NEB SCH ×2 (09:39→20:49)
[2017-12-21] MEDS ORDERED: BUTT CREAM (COMPOUND) TOP PRN (20:14)
[2017-12-21] MEDS: NEURONTIN CAP 300 MG PO SCH (20:41)
[2017-12-21] MEDS: REQUIP PO SCH (20:41)
[2017-12-21] MEDS: PRAVACHOL PO SCH (20:43)
[2017-12-21 22:23] LABS: STOOL FOR WBC NEGATIVE (NEGATIVE)
[2017-12-21 22:28] LABS: CRYPTOSPORIDIUM PARVUM ANTIGEN NEGATIVE (NEGATIVE); GIARDIA LAMBLIA ANTIGEN NEGATIVE (NEGATIVE)
[2017-12-22] MEDS: TYLENOL 500 MG TAB EXTRA STRENGTH PO PRN ×3 (00:21→19:00)
[2017-12-22] MEDS ORDERED: DUONEB 0.5 MG/3 MG ONE ×2 (01:17→04:46)
[2017-12-22] MEDS: DUONEB 0.5 MG/3 MG NEB SCH ×6 (01:35→21:20)
[2017-12-22 05:44] LABS: BASOPHILS # (AUTO) 0.1 X10^3/uL (0.0-0.1); BASOPHILS % (AUTO) 1.2 % (0.2-1.0); EOSINOPHILS # (AUTO) 0.1 x10^3/uL (0.0-0.2); EOSINOPHILS % (AUTO) 1.4 % (0.9-2.9); HEMATOCRIT 21.4 % (36.0-47.0); HEMOGLOBIN 7.2 g/dL (12.0-16.0); LYMPHOCYTES # (AUTO) 1.6 X10^3/uL (1.3-2.9); LYMPHOCYTES % (AUTO) 27.6 % (21.0-51.0); MEAN CORPUSCULAR HEMOGLOBIN 29.2 pg (27.0-34.0); MEAN CORPUSCULAR HGB CONC 33.8 g/dL (33.0-35.0); MEAN CORPUSCULAR VOLUME 86.4 fL (80.0-100.0); MEAN PLATELET VOLUME 8.1 fL (7.4-11.0); MONOCYTES # (AUTO) 0.7 x10^3/uL (0.3-0.8); MONOCYTES % (AUTO) 12.5 % (0.0-13.0); NEUTROPHILS # (AUTO) 3.3 x10^3/uL (2.2-4.8); NEUTROPHILS % (AUTO) 57.3 % (42.0-75.0); PLATELET COUNT 405 X10^3/uL (150.0-450.0); RED BLOOD COUNT 2.48 X10^6/uL (3.5-5.4); RED CELL DISTRIBUTION WIDTH 17.4 % (11.6-16.5); WHITE BLOOD COUNT 5.7 X10^3/uL (3.6-10.0)
[2017-12-22 06:10] LABS: ALANINE AMINOTRANSFERASE 16 Units/L (12-78); ALBUMIN 2.1 g/dL (3.4-5.0); ALKALINE PHOSPHATASE 48 Units/L (46-116); ASPARTATE AMINO TRANSFERASE 21 Units/L (15-37); BLOOD UREA NITROGEN 13 mg/dL (7-18); CALCIUM 8.3 mg/dL (8.5-10.1); CARBON DIOXIDE 19.5 mmol/L (21-32); CHLORIDE 111 mmol/L (98-107); COR CA(FOR HYPOALB) 9.8 mg/dL (8.5-10.1); CREATININE 0.83 mg/dL (0.55-1.02); SODIUM 142 mmol/L (136-145); TOTAL PROTEIN 6.2 g/dL (6.4-8.2); eGFR NON BLACK RACES > 60 (>60)
[2017-12-22 06:35] LABS: ANISOCYTOSIS 2+; PLATELET MORPHOLOGY COMMENT NORMAL (NORMAL)
--- NOTE | 2017-12-22 07:21 | RAD ---
Examination: AP chest History: Pneumonia Comparison 12/21/2017 Findings: Continued normal heart size with clear lungs and pleural spaces. Impression: No acute abnormality demonstrated. Reported By:
--- NOTE | 2017-12-22 08:26 | DR.H&P ---
H&P - History & Physical for Day of: H&P Date: 12/20/17 - Chief Complaint Chief Complaint: fever, short of breath, hypotension - History of Present Illness History of Present Illness: is a 82 year old patient of ours who presented to the emergency room with reports of decreased blood pressure. Patient reports symptoms started two or three days ago. Patient reports she had a fever at home and has also had shortness of breath and upper back pain. On arrival, vitals were 103, 97, 22, 99% RA, 81/46. Labs were obtained. Abnormal lab values include the following: WBC 10.2, RBC 2.96, Hgb 8.6, Hct 25.5 , RDW 17.8, Plt Count 514, BUN 23, Creatinine 1.22, GFR af 55, GFR non 45, Calcium 8.2, Albumin 2.6, Globulin 4.6, A/G Ratio 0.6. Urinalysis revealed: Catherized, Protein 2+, Occult Blood 2+, Leuk Est 2+, RBC 3-5, WBC 3-5, Bacteria Trace, Hyaline Casts Rare, Mucus Few. Blood Cultures x2 Pending. Sputum Culture Pending; Gram Stain - Gram Pos Cocci Few, Gram Neg Rods Rare, WBC Rare, Yeast Few. EKG revealed: Sinus Rhythm. Rate=99. Chest X-Ray revealed : @1509 Left lower lobe infiltrate appears slightly improved from prior exam. @ 1716 Essentially unchanged examination from previous examination with mild improved aeration of the left lung base. Patient noted with a chronic indwelling duenas catheter that is changed on the 16th of every month. Patient admitted to the hospital as observation for further evaluation and treatment. She was started on the pneumonia protocol on rocephin and doxycycline as well as respiratory treatments and supplemental oxygen. We will follow up with am labs and continue to monitor patient. - Past Medical History Past Medical History: Asthma, COPD, Coronary Artery Disease, Dyslipidemia, Hypertension, [place] Additional Medical History: Breast and uterine cancer - Past Surgical History Surgical History: Angioplasty/Stents, Hysterectomy, Mastectomy - Family History Family Medical History: [place], Hypertension - Social History Does patient currently use any type of tobacco product: No Have you used tobacco products in the last 12 months: No Type of Tobacco Use: None Does any household member use tobacco: Yes Alcohol Use: None Drug Use: None - Medications Home Medications: No Known Drug Allergies Allergy (Verified 12/20/17 17:46) CONTINUE taking the following medications amoxicillin 1 cap PO QID 12/20/17 [History] furosemide [Lasix] 1 tab PO DAILY 12/20/17 [History] - Review of Systems Constitutional: Fever, Weakness, Malaise Eyes: No Symptoms Reported ENT: No Symptoms Reported Respiratory: Shortness of Breath, SOB with Excertion. denies: Cough Cardiovascular: No Symptoms Reported. denies: Edema Gastrointestinal: No Symptoms Reported Genitourinary: No Symptoms Reported Musculoskeletal: No Symptoms Reported Skin: No Symptoms Reported Neurological: Weakness - Physical Exam Vital Signs: Temperature 98.8 F Pulse Rate [Right Radial] 85 Pulse Rate 87 Respiratory Rate 18 Blood Pressure [Left Calf] 126/56 Blood Pressure [Left Arm] 125/55 Blood Pressure [Right Calf] 168/77 Blood Pressure [Right Arm] 104/59 Blood Pressure 81/46 O2 Sat by Pulse Oximetry 98 Oriented: Normal Eyes: Normal Ear: Normal Nose: Normal Throat: Normal Respiratory: Diminished Throughout Cardiovascular: Normal. negative: S3, S4, Murmur : Normal Auscultation: Bowel Sounds: Normal Palpation: Normal Tenderness: Normal Skin: Normal Musculoskeletal: Normal Psychiatric: Normal Mood Description: Calm Affect: Normal Speech Pattern: Clear - Assessment/Plan (1) Left lower lobe pneumonia Qualifiers: Pneumonia type: due to unspecified organism Qualified Code(s): J18.1 - Lobar pneumonia, unspecified organism Status: Acute Plan: pneumonia protocol, rocephin, doxycycline, respiratory treatments, supplemental oxygen, continue to monitor - Allergies Allergies/Adverse Reactions: Allergies Allergy/AdvReac Type Severity Reaction Status Date / Time No Known Drug Allergies Allergy Verified 12/20/17 17:46
[2017-12-22] MEDS: ARICEPT TAB 10 MG PO SCH (08:31)
[2017-12-22] MEDS: LASIX PO SCH (08:32)
[2017-12-22] MEDS: HEMOCYTE-PLUS PO SCH (08:32)
[2017-12-22] MEDS: CORDARONE TAB 200 MG PO SCH (08:32)
[2017-12-22] MEDS: PLAVIX PO SCH (08:34)
[2017-12-22] MEDS: MEGACE PO SCH ×2 (08:34→20:34)
[2017-12-22] MEDS: NAMENDA TAB 10 MG PO SCH ×2 (08:34→20:34)
[2017-12-22] MEDS: PEPCID TAB 20 MG PO SCH ×2 (08:34→20:34)
[2017-12-22] MEDS: VIBRAMYCIN 100 MG in NS 100 ML IV + SPIKE MINIBAG* 100 ML IV SCH ×2 (08:35→20:35)
[2017-12-22] MEDS: SINGULAIR TAB 10 MG PO SCH (08:35)
[2017-12-22] MEDS: ROBITUSSIN DM PO SCH ×4 (08:35→20:35)
[2017-12-22] MEDS: ROCEPHIN 1 GRAM IV PREMIX 1 G/50 ML IV.SOLN. IV SCH (08:35)
[2017-12-22] MEDS: VSL#3 PO SCH (08:36)
[2017-12-22] MEDS: PULMICORT NEB TX 0.5 MG NEB SCH ×2 (08:45→21:20)
[2017-12-22] MEDS ORDERED: TYLENOL 325 MG TAB PO PRN (09:29)
[2017-12-22] MEDS ORDERED: BENADRYL INJ 50 MG VIAL IVP PRN (09:29)
[2017-12-22] MEDS ORDERED: NS 500 ML IV 500 ML IV ONE (09:29)
--- NOTE | 2017-12-22 12:09 | PCM.PROG ---
Progress Note - Progress Note for Day of Date: 12/21/17 - Subjective Subjective: WAS ADMITTED FOR TREATMENT OF LEFT LOWER LOBE PNEUMONIA. TODAY, SHE IS ALERT AND ORIENTED, LYING IN BED ON MORNING ROUNDS. SHE CONTINUES WITH COMPLAINTS OF COUGH AND SHORTNESS OF BREATH. SHE ALSO REPORTS LOOSE STOOLS. ON EXAMINATION, HEART IS REGULAR IN RATE AND RHYTHM. BILATERAL LUNGS ARE NOTED WITH DIMINISHED LUNG SOUNDS THROUGHOUT. ABDOMEN IS ROUND, SOFT, AND NON-TENDER WITH NORMAL BOWEL SOUNDS NOTED IN ALL QUADRANTS. HER VITALS THIS MORNING ARE 99.0-77-20-95%-139/59. LABS WERE OBTAINED. ABNORMAL LAB VALUES INCUDE THE FOLLOWING: RBC 2.61, HGB 7.6, HCT 22.3, PLT COUNT 455, CHLORIDE 109, CALCIUM 8.0, TOTAL PROTEIN 6.1, ALBUMIN 2.1. TODAYS CHEST XRAY IS STABLE. TODAY , WE WILL CONTINUE WITH IV ANTIBIOTICS, RESPIRATORY TREATMENTS, AND CURRENT PLAN OF CARE. WE WILL OBTAIN STOOL STUDIES. OTHERWISE, WE WILL FOLLOW UP WITH AM LABS AND 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 PATIENT. - Past Medical Family Social History Past Med/Fam/Surg Hx: No changes since H&P Allergies: Allergies No Known Drug Allergies Allergy (Verified 12/20/17 17:46) - Review of Systems ROS: No change since H&P - Vital Signs and I&O's Vital Signs: Temperature 99.6 F Pulse Rate [Right Radial] 90 Pulse Rate 87 Respiratory Rate 20 Blood Pressure [Left Calf] 126/56 Blood Pressure [Left Arm] 152/65 Blood Pressure [Right Calf] 168/77 Blood Pressure [Right Arm] 104/59 Blood Pressure 81/46 O2 Sat by Pulse Oximetry 97 Intake and Output: Intake & Output 12/20/17 12/21/17 12/22/17 12/23/17 11:59 11:59 11:59 11:59 Intake Total 1398 / 1398 1085 / 1085 Output Total 1150 / 1150 1550 / 1550 Balance 248 / 248 -465 / -465 - Physical Exam Oriented: Normal Eyes: Normal Ear: Normal Nose: Normal Throat: Normal Respiratory: Diminished Cardiovascular: Normal. negative: S3, S4, Murmur : Normal Auscultation: Bowel Sounds: Normal Palpation: Normal Tenderness: Normal Skin: Normal Musculoskeletal: Normal Psychiatric: Normal Mood Description: Calm Affect: Normal Speech Pattern: Clear - Laboratory and Diagnostics Result Diagrams: 12/22/17 04:23 12/22/17 04:23 Labs: 12/21/17 21:30 Stool Stool Culture - Preliminary 12/21/17 21:30 Stool - Final 12/20/17 19:05 Sputum - Expectorated Sputum Sputum Culture - Final Enterobacter Cloacae 12/20/17 19:05 Sputum - Expectorated Sputum - Final 12/20/17 15:31 Blood Blood Culture - Preliminary 12/20/17 15:25 Blood Blood Culture - Preliminary Laboratory WBC 5.7 X10^3/uL (3.6-10.0) 12/22/17 04:23 RBC 2.48 X10^6/uL (3.5-5.4) L 12/22/17 04:23 Hgb 7.2 g/dL (12.0-16.0) L 12/22/17 04:23 Hct 21.4 % (36.0-47.0) L 12/22/17 04:23 MCV 86.4 fL (80.0-100.0) 12/22/17 04:23 MCH 29.2 pg (27.0-34.0) 12/22/17 04:23 MCHC 33.8 g/dL (33.0-35.0) 12/22/17 04:23 RDW 17.4 % (11.6-16.5) H 12/22/17 04:23 Plt Count 405 X10^3/uL (150.0-450.0) 12/22/17 04:23 Plt Count Comment Adequate (ADEQUATE) 12/22/17 04:23 MPV 8.1 fL (7.4-11.0) 12/22/17 04:23 Neut % (Auto) 57.3 % (42.0-75.0) 12/22/17 04:23 Lymph % (Auto) 27.6 % (21.0-51.0) 12/22/17 04:23 [place] % (Auto) 12.5 % (0.0-13.0) 12/22/17 04:23 Eos % (Auto) 1.4 % (0.9-2.9) 12/22/17 04:23 Baso % (Auto) 1.2 % (0.2-1.0) H 12/22/17 04:23 Neut # (Auto) 3.3 x10^3/uL (2.2-4.8) 12/22/17 04:23 Lymph # (Auto) 1.6 X10^3/uL (1.3-2.9) 12/22/17 04:23 [place] # (Auto) 0.7 x10^3/uL (0.3-0.8) 12/22/17 04:23 Eos # (Auto) 0.1 x10^3/uL (0.0-0.2) 12/22/17 04:23 Baso # (Auto) 0.1 X10^3/uL (0.0-0.1) 12/22/17 04:23 Absolute Nucleated RBC 0.0 /100WBC 12/22/17 04:23 Plt Morphology Comment Normal (NORMAL) 12/22/17 04:23 RBC Morphology Abnormal (NORMAL) A 12/22/17 04:23 Hypochromasia Slight A 12/21/17 04:12 Poikilocytosis Slight A 12/21/17 04:12 Anisocytosis 2+ A 12/22/17 04:23 Ovalocytes Slight A 12/21/17 04:12 INR Target Range - 12/20/17 15:25 INR 1.11 (0.8-1.3) 12/20/17 15:25 Sodium 142 mmol/L (136-145) 12/22/17 04:23 Corrected Sodium TNP 12/22/17 04:23 Potassium 3.7 mmol/L (3.5-5.1) 12/22/17 04:23 Chloride 111 mmol/L (98-107) H 12/22/17 04:23 Carbon Dioxide 19.5 mmol/L (21-32) L 12/22/17 04:23 BUN 13 mg/dL (7-18) 12/22/17 04:23 Creatinine 0.83 mg/dL (0.55-1.02) 12/22/17 04:23 Est GFR (MDRD) Af Amer > 60 (>60) 12/22/17 04:23 Est GFR (MDRD) Non-Af > 60 (>60) 12/22/17 04:23 Glucose 98 mg/dL (65-99) 12/22/17 04:23 Lactic Acid 1.9 mmol/L (0.4-2.0) 12/20/17 15:25 Calcium 8.3 mg/dL (8.5-10.1) L 12/22/17 04:23 Corrected Calcium 9.8 mg/dL (8.5-10.1) 12/22/17 04:23 Magnesium 2.2 mg/dL (1.7-2.9) 12/20/17 15:25 Total Bilirubin 0.10 mg/dL (0.2-1.0) L 12/22/17 04:23 AST 21 Units/L (15-37) 12/22/17 04:23 ALT 16 Units/L (12-78) 12/22/17 04:23 Alkaline Phosphatase 48 Units/L (46-116) 12/22/17 04:23 Creatine Kinase 35 Units/L (26-192) 12/20/17 15:25 CK-MB (CK-2) < 1.0 ng/mL (0-4.0) 12/20/17 15:25 CK/CKMB % Calc 2.9 % (<4) 12/20/17 15:25 Troponin I < 0.02 ng/mL (0-1.5) 12/20/17 15:25 Total Protein 6.2 g/dL (6.4-8.2) L 12/22/17 04:23 Albumin 2.1 g/dL (3.4-5.0) L 12/22/17 04:23 Globulin 4.1 g/dL (2.5-4.5) 12/22/17 04:23 Albumin/Globulin Ratio 0.5 Ratio (1.1-2.1) L 12/22/17 04:23 Specimen Type Catherized urine 12/20/17 16:02 Urine Color Yellow (YELLOW) 12/20/17 16:02 Urine Appearance Slightly hazy (CLEAR) 12/20/17 16:02 Urine pH 6.5 (5.0 - 8.0) 12/20/17 16:02 Ur Specific [place] 1.010 (1.000-1.030) 12/20/17 16:02 Urine Protein 2+ (NEGATIVE) 12/20/17 16:02 Urine Glucose (UA) Negative (NEGATIVE) 12/20/17 16:02 Urine Ketones Negative (NEGATIVE) 12/20/17 16:02 Urine Occult Blood 2+ (NEGATIVE) 12/20/17 16:02 Urine Nitrite Negative (NEGATIVE) 12/20/17 16:02 Urine Bilirubin Negative (NEGATIVE) 12/20/17 16:02 Urine Urobilinogen Normal (NORMAL) 12/20/17 16:02 Ur Leukocyte Esterase 2+ (NEGATIVE) 12/20/17 16:02 Urine RBC 3-5 /HPF (NONE SEEN) 12/20/17 16:02 Urine WBC 3-5 /HPF (NONE SEEN) 12/20/17 16:02 Ur Squamous Epith Cells Few /HPF (NEGATIVE) 12/20/17 16:02 Urine Bacteria Trace /HPF (NEGATIVE) 12/20/17 16:02 Hyaline Casts Rare /LPF (NEGATIVE) 12/20/17 16:02 Urine Mucus Few /HPF (NEGATIVE) 12/20/17 16:02 Ur Culture Indicated? No/not indicated 12/20/17 16:02 Stool Description 75g,green,formed 12/21/17 21:30 Stl Occult Blood (IFOB) Negative (NEGATIVE) 12/21/17 21:30 Stool for White Cells Negative (NEGATIVE) 12/21/17 21:30 Stl C. diff Tox B Gene Positive (NEGATIVE) A 12/21/17 21:30 Stl C. diff [id number] Negative (NEGATIVE) 12/21/17 21:30 Cryptosporid parvum Ag Negative (NEGATIVE) 12/21/17 21:30 Giardia lamblia Ag Negative (NEGATIVE) 12/21/17 21:30 Blood Type A POSITIVE 12/22/17 09:49 Antibody Screen Negative 12/22/17 09:49 Crossmatch See Detail 12/22/17 09:49 - Plan (1) Left lower lobe pneumonia Status: Acute Qualifiers: Pneumonia type: due to unspecified organism Qualified Code(s): J18.1 - Lobar pneumonia, unspecified organism Plan: pneumonia protocol, rocephin, doxycycline, respiratory treatments, supplemental oxygen, continue to monitor
--- NOTE | 2017-12-22 20:06 | PCM.PROG ---
Progress Note - Progress Note for Day of Date: 12/22/17 - Subjective Subjective: WAS ADMITTED FOR TREATMENT OF LEFT LOWER LOBE PNEUMONIA. TODAY, SHE IS ALERT AND ORIENTED, LYING IN BED ON MORNING ROUNDS. SHE CONTINUES WITH COMPLAINTS OF COUGH AND SHORTNESS OF BREATH. ON EXAMINATION, HEART IS REGULAR IN RATE AND RHYTHM. BILATERAL LUNGS ARE NOTED WITH DIMINISHED LUNG SOUNDS THROUGHOUT. ABDOMEN IS ROUND, SOFT, AND NON-TENDER WITH NORMAL BOWEL SOUNDS NOTED IN ALL QUADRANTS. HER VITALS THIS MORNING ARE 98.8-85-99.0-18-98%- 126/56. LABS WERE OBTAINED. ABNORMAL LAB VALUES INCUDE THE FOLLOWING: RBC 2.48, HGB 7.2, HCT 21.4, CHLORIDE 111, CARBON DIOXIDE 19.5, CALCIUM 8.3, TOTAL PROTEIN 6.2, ALBUMIN 2.1. STOOL STUDIES REPORT THAT PATIENT IS POSITIVE FOR C.DIFF TOXIN B. SHE REPORS THAT LOOSE STOOLS HAS IMPROVED TODAY. TODAYS CHEST XRAY IS STABLE. TODAY, WE WILL CONTINUE WITH IV ANTIBIOTICS, RESPIRATORY TREATMENTS, AND CURRENT PLAN OF CARE. WE WILL ALSO TRANSFUSE TWO UNITS OF PACKED RED BLOOD CELLS TODAY. OTHERWISE, WE WILL FOLLOW UP WITH AM LABS AND 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 PATIENT. WE WILL PLAN FOR DISCHARGE FOR TOMORROW. - Past Medical Family Social History Past Med/Fam/Surg Hx: No changes since H&P Allergies: Allergies No Known Drug Allergies Allergy (Verified 12/20/17 17:46) - Review of Systems ROS: No change since H&P - Vital Signs and I&O's Vital Signs: Temperature 98.6 F Pulse Rate [Right Radial] 83 Pulse Rate 87 Respiratory Rate 22 Blood Pressure [Left Calf] 126/56 Blood Pressure [Left Arm] 158/63 Blood Pressure [Right Calf] 168/77 Blood Pressure [Right Arm] 104/59 Blood Pressure 81/46 O2 Sat by Pulse Oximetry 98 Intake and Output: Intake & Output 12/20/17 12/21/17 12/22/17 12/23/17 11:59 11:59 11:59 11:59 Intake Total 1398 / 1398 1085 / 1085 480 / 480 Output Total 1150 / 1150 1550 / 1550 600 / 600 Balance 248 / 248 -465 / -465 -120 / -120 - Physical Exam Oriented: Normal Eyes: Normal Ear: Normal Nose: Normal Throat: Normal Respiratory: Diminished Cardiovascular: Normal. negative: S3, S4, Murmur : Normal Auscultation: Bowel Sounds: Normal Palpation: Normal Tenderness: Normal Skin: Normal Musculoskeletal: Normal Psychiatric: Normal Mood Description: Calm Affect: Normal Speech Pattern: Clear, Appropriate - Laboratory and Diagnostics Result Diagrams: 12/22/17 04:23 12/22/17 04:23 Labs: 12/21/17 21:30 Stool Stool Culture - Preliminary 12/21/17 21:30 Stool - Final 12/20/17 19:05 Sputum - Expectorated Sputum Sputum Culture - Final Enterobacter Cloacae 12/20/17 19:05 Sputum - Expectorated Sputum - Final 12/20/17 15:31 Blood Blood Culture - Preliminary 12/20/17 15:25 Blood Blood Culture - Preliminary Laboratory WBC 5.7 X10^3/uL (3.6-10.0) 12/22/17 04:23 RBC 2.48 X10^6/uL (3.5-5.4) L 12/22/17 04:23 Hgb 7.2 g/dL (12.0-16.0) L 12/22/17 04:23 Hct 21.4 % (36.0-47.0) L 12/22/17 04:23 MCV 86.4 fL (80.0-100.0) 12/22/17 04:23 MCH 29.2 pg (27.0-34.0) 12/22/17 04:23 MCHC 33.8 g/dL (33.0-35.0) 12/22/17 04:23 RDW 17.4 % (11.6-16.5) H 12/22/17 04:23 Plt Count 405 X10^3/uL (150.0-450.0) 12/22/17 04:23 Plt Count Comment Adequate (ADEQUATE) 12/22/17 04:23 MPV 8.1 fL (7.4-11.0) 12/22/17 04:23 Neut % (Auto) 57.3 % (42.0-75.0) 12/22/17 04:23 Lymph % (Auto) 27.6 % (21.0-51.0) 12/22/17 04:23 [place] % (Auto) 12.5 % (0.0-13.0) 12/22/17 04:23 Eos % (Auto) 1.4 % (0.9-2.9) 12/22/17 04:23 Baso % (Auto) 1.2 % (0.2-1.0) H 12/22/17 04:23 Neut # (Auto) 3.3 x10^3/uL (2.2-4.8) 12/22/17 04:23 Lymph # (Auto) 1.6 X10^3/uL (1.3-2.9) 12/22/17 04:23 [place] # (Auto) 0.7 x10^3/uL (0.3-0.8) 12/22/17 04:23 Eos # (Auto) 0.1 x10^3/uL (0.0-0.2) 12/22/17 04:23 Baso # (Auto) 0.1 X10^3/uL (0.0-0.1) 12/22/17 04:23 Absolute Nucleated RBC 0.0 /100WBC 12/22/17 04:23 Plt Morphology Comment Normal (NORMAL) 12/22/17 04:23 RBC Morphology Abnormal (NORMAL) A 12/22/17 04:23 Hypochromasia Slight A 12/21/17 04:12 Poikilocytosis Slight A 12/21/17 04:12 Anisocytosis 2+ A 12/22/17 04:23 Ovalocytes Slight A 12/21/17 04:12 INR Target Range - 12/20/17 15:25 INR 1.11 (0.8-1.3) 12/20/17 15:25 Sodium 142 mmol/L (136-145) 12/22/17 04:23 Corrected Sodium TNP 12/22/17 04:23 Potassium 3.7 mmol/L (3.5-5.1) 12/22/17 04:23 Chloride 111 mmol/L (98-107) H 12/22/17 04:23 Carbon Dioxide 19.5 mmol/L (21-32) L 12/22/17 04:23 BUN 13 mg/dL (7-18) 12/22/17 04:23 Creatinine 0.83 mg/dL (0.55-1.02) 12/22/17 04:23 Est GFR (MDRD) Af Amer > 60 (>60) 12/22/17 04:23 Est GFR (MDRD) Non-Af > 60 (>60) 12/22/17 04:23 Glucose 98 mg/dL (65-99) 12/22/17 04:23 Lactic Acid 1.9 mmol/L (0.4-2.0) 12/20/17 15:25 Calcium 8.3 mg/dL (8.5-10.1) L 12/22/17 04:23 Corrected Calcium 9.8 mg/dL (8.5-10.1) 12/22/17 04:23 Magnesium 2.2 mg/dL (1.7-2.9) 12/20/17 15:25 Total Bilirubin 0.10 mg/dL (0.2-1.0) L 12/22/17 04:23 AST 21 Units/L (15-37) 12/22/17 04:23 ALT 16 Units/L (12-78) 12/22/17 04:23 Alkaline Phosphatase 48 Units/L (46-116) 12/22/17 04:23 Creatine Kinase 35 Units/L (26-192) 12/20/17 15:25 CK-MB (CK-2) < 1.0 ng/mL (0-4.0) 12/20/17 15:25 CK/CKMB % Calc 2.9 % (<4) 12/20/17 15:25 Troponin I < 0.02 ng/mL (0-1.5) 12/20/17 15:25 Total Protein 6.2 g/dL (6.4-8.2) L 12/22/17 04:23 Albumin 2.1 g/dL (3.4-5.0) L 12/22/17 04:23 Globulin 4.1 g/dL (2.5-4.5) 12/22/17 04:23 Albumin/Globulin Ratio 0.5 Ratio (1.1-2.1) L 12/22/17 04:23 Specimen Type Catherized urine 12/20/17 16:02 Urine Color Yellow (YELLOW) 12/20/17 16:02 Urine Appearance Slightly hazy (CLEAR) 12/20/17 16:02 Urine pH 6.5 (5.0 - 8.0) 12/20/17 16:02 Ur Specific [place] 1.010 (1.000-1.030) 12/20/17 16:02 Urine Protein 2+ (NEGATIVE) 12/20/17 16:02 Urine Glucose (UA) Negative (NEGATIVE) 12/20/17 16:02 Urine Ketones Negative (NEGATIVE) 12/20/17 16:02 Urine Occult Blood 2+ (NEGATIVE) 12/20/17 16:02 Urine Nitrite Negative (NEGATIVE) 12/20/17 16:02 Urine Bilirubin Negative (NEGATIVE) 12/20/17 16:02 Urine Urobilinogen Normal (NORMAL) 12/20/17 16:02 Ur Leukocyte Esterase 2+ (NEGATIVE) 12/20/17 16:02 Urine RBC 3-5 /HPF (NONE SEEN) 12/20/17 16:02 Urine WBC 3-5 /HPF (NONE SEEN) 12/20/17 16:02 Ur Squamous Epith Cells Few /HPF (NEGATIVE) 12/20/17 16:02 Urine Bacteria Trace /HPF (NEGATIVE) 12/20/17 16:02 Hyaline Casts Rare /LPF (NEGATIVE) 12/20/17 16:02 Urine Mucus Few /HPF (NEGATIVE) 12/20/17 16:02 Ur Culture Indicated? No/not indicated 12/20/17 16:02 Stool Description 75g,green,formed 12/21/17 21:30 Stl Occult Blood (IFOB) Negative (NEGATIVE) 12/21/17 21:30 Stool for White Cells Negative (NEGATIVE) 12/21/17 21:30 Stl C. diff Tox B Gene Positive (NEGATIVE) A 12/21/17 21:30 Stl C. diff [id number] Negative (NEGATIVE) 12/21/17 21:30 Cryptosporid parvum Ag Negative (NEGATIVE) 12/21/17 21:30 Giardia lamblia Ag Negative (NEGATIVE) 12/21/17 21:30 Blood Type A POSITIVE 12/22/17 09:49 Antibody Screen Negative 12/22/17 09:49 Crossmatch See Detail 12/22/17 09:49 - Plan (1) Left lower lobe pneumonia Status: Acute Qualifiers: Pneumonia type: due to unspecified organism Qualified Code(s): J18.1 - Lobar pneumonia, unspecified organism Plan: pneumonia protocol, rocephin, doxycycline, respiratory treatments, supplemental oxygen, continue to monitor (2) Anemia Status: Chronic Qualifiers: Anemia type: iron deficiency Iron deficiency anemia type: unspecified iron deficiency Qualified Code(s): D50.9 - Iron deficiency anemia, unspecified Plan: TRANSFUSE 2 UNITS PRBC, 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
[2017-12-22] MEDS: REQUIP PO SCH (20:34)
[2017-12-22] MEDS: NEURONTIN CAP 300 MG PO SCH (20:34)
[2017-12-22] MEDS: PRAVACHOL PO SCH (20:34)
[2017-12-22 21:28] LABS: HEMATOCRIT 30.5 % (36.0-47.0); HEMOGLOBIN 10.3 g/dL (12.0-16.0)
[2017-12-22] MEDS: DIFLUCAN 200 MG IV PREMIX* 200 MG/100 ML BAG IV SCH (22:46)
[2017-12-23] MEDS ORDERED: DUONEB 0.5 MG/3 MG ONE ×2 (00:47→03:33)
[2017-12-23] MEDS: DUONEB 0.5 MG/3 MG NEB SCH ×6 (00:50→20:26)
[2017-12-23 06:23] LABS: BASOPHILS # (AUTO) 0.1 X10^3/uL (0.0-0.1); BASOPHILS % (AUTO) 0.8 % (0.2-1.0); EOSINOPHILS # (AUTO) 0.1 x10^3/uL (0.0-0.2); EOSINOPHILS % (AUTO) 1.3 % (0.9-2.9); HEMATOCRIT 26.9 % (36.0-47.0); HEMOGLOBIN 9.3 g/dL (12.0-16.0); LYMPHOCYTES # (AUTO) 1.7 X10^3/uL (1.3-2.9); LYMPHOCYTES % (AUTO) 24.6 % (21.0-51.0); MEAN CORPUSCULAR HEMOGLOBIN 29.1 pg (27.0-34.0); MEAN CORPUSCULAR HGB CONC 34.5 g/dL (33.0-35.0); MEAN CORPUSCULAR VOLUME 84.3 fL (80.0-100.0); MONOCYTES # (AUTO) 0.7 x10^3/uL (0.3-0.8); MONOCYTES % (AUTO) 10.3 % (0.0-13.0); NEUTROPHILS # (AUTO) 4.3 x10^3/uL (2.2-4.8); PLATELET COUNT 372 X10^3/uL (150.0-450.0); RED BLOOD COUNT 3.19 X10^6/uL (3.5-5.4); RED CELL DISTRIBUTION WIDTH 16.3 % (11.6-16.5); WHITE BLOOD COUNT 6.9 X10^3/uL (3.6-10.0)
[2017-12-23] MEDS: TYLENOL 500 MG TAB EXTRA STRENGTH PO PRN ×2 (06:23→21:29)
[2017-12-23 06:46] LABS: ALANINE AMINOTRANSFERASE 18 Units/L (12-78); ALBUMIN 2.2 g/dL (3.4-5.0); ALKALINE PHOSPHATASE 45 Units/L (46-116); ASPARTATE AMINO TRANSFERASE 22 Units/L (15-37); BLOOD UREA NITROGEN 13 mg/dL (7-18); CHLORIDE 109 mmol/L (98-107); COR CA(FOR HYPOALB) 9.4 mg/dL (8.5-10.1); CREATININE 0.79 mg/dL (0.55-1.02); SODIUM 141 mmol/L (136-145); eGFR NON BLACK RACES > 60 (>60)
[2017-12-23] MEDS ORDERED: POTASSIUM CHL 60 MEQ/NS 0.45% 500 ML IV PRN (07:36)
[2017-12-23] MEDS ORDERED: K-LYTE EFFERVESCENT PO PRN (07:36)
[2017-12-23] MEDS ORDERED: K-RIDER 10 MEQ/NS 100 ML 10 MEQ/100 ML BAG IV PRN (07:36)
[2017-12-23] MEDS ORDERED: POTASSIUM CHLORIDE LIQ 20 MEQ UDC PO PRN (07:36)
[2017-12-23] MEDS ORDERED: POTASSIUM CHL 40 MEQ/NS 0.45% 500 ML IV PRN (07:36)
[2017-12-23] MEDS: VIBRAMYCIN 100 MG in NS 100 ML IV + SPIKE MINIBAG* 100 ML IV SCH ×2 (09:31→21:24)
[2017-12-23] MEDS: ROCEPHIN 1 GRAM IV PREMIX 1 G/50 ML IV.SOLN. IV SCH (09:32)
[2017-12-23] MEDS: ROBITUSSIN DM PO SCH ×4 (09:32→21:28)
[2017-12-23] MEDS: PLAVIX PO SCH (09:32)
[2017-12-23] MEDS: SINGULAIR TAB 10 MG PO SCH (09:33)
[2017-12-23] MEDS: VSL#3 PO SCH (09:33)
[2017-12-23] MEDS: ARICEPT TAB 10 MG PO SCH (09:34)
[2017-12-23] MEDS: HEMOCYTE-PLUS PO SCH (09:34)
[2017-12-23] MEDS: PEPCID TAB 20 MG PO SCH ×2 (09:34→21:30)
[2017-12-23] MEDS: LASIX PO SCH (09:35)
[2017-12-23] MEDS: CORDARONE TAB 200 MG PO SCH (09:35)
[2017-12-23] MEDS: MEGACE PO SCH ×2 (09:35→21:29)
[2017-12-23] MEDS: NAMENDA TAB 10 MG PO SCH ×2 (09:35→21:29)
[2017-12-23] MEDS: MAGNESIUM SULFATE 1 GRAM/100 mL PREMIX 1 GM/100 ML BAG IV PRN ×2 (14:43→16:16)
[2017-12-23 15:38] LABS: HEMATOCRIT 29.4 % (36.0-47.0); HEMOGLOBIN 10.1 g/dL (12.0-16.0)
[2017-12-23] MEDS: PULMICORT NEB TX 0.5 MG NEB SCH (20:26)
[2017-12-23] MEDS: DIFLUCAN 200 MG IV PREMIX* 200 MG/100 ML BAG IV SCH (21:26)
[2017-12-23] MEDS: NEURONTIN CAP 300 MG PO SCH (21:27)
[2017-12-23] MEDS: PRAVACHOL PO SCH (21:27)
[2017-12-23] MEDS: REQUIP PO SCH (21:29)
[2017-12-24] MEDS: DUONEB 0.5 MG/3 MG NEB SCH ×6 (00:25→21:51)
[2017-12-24 06:26] LABS: BLOOD UREA NITROGEN 11 mg/dL (7-18); CALCIUM 8.5 mg/dL (8.5-10.1); CARBON DIOXIDE 22.1 mmol/L (21-32); CHLORIDE 110 mmol/L (98-107); CREATININE 0.68 mg/dL (0.55-1.02); SODIUM 142 mmol/L (136-145); eGFR NON BLACK RACES > 60 (>60)
[2017-12-24 06:27] LABS: BASOPHILS # (AUTO) 0.1 X10^3/uL (0.0-0.1); BASOPHILS % (AUTO) 0.9 % (0.2-1.0); EOSINOPHILS # (AUTO) 0.1 x10^3/uL (0.0-0.2); EOSINOPHILS % (AUTO) 1.4 % (0.9-2.9); HEMATOCRIT 27.5 % (36.0-47.0); HEMOGLOBIN 9.6 g/dL (12.0-16.0); LYMPHOCYTES # (AUTO) 1.8 X10^3/uL (1.3-2.9); MEAN CORPUSCULAR HEMOGLOBIN 29.7 pg (27.0-34.0); MEAN CORPUSCULAR VOLUME 84.9 fL (80.0-100.0); MONOCYTES # (AUTO) 0.7 x10^3/uL (0.3-0.8); MONOCYTES % (AUTO) 10.7 % (0.0-13.0); NEUTROPHILS # (AUTO) 3.9 x10^3/uL (2.2-4.8); PLATELET COUNT 353 X10^3/uL (150.0-450.0); RED BLOOD COUNT 3.24 X10^6/uL (3.5-5.4); RED CELL DISTRIBUTION WIDTH 16.4 % (11.6-16.5); WHITE BLOOD COUNT 6.5 X10^3/uL (3.6-10.0)
[2017-12-24 07:18] LABS: MAGNESIUM 2.2 mg/dL (1.7-2.9)
[2017-12-24] MEDS: PULMICORT NEB TX 0.5 MG NEB SCH ×2 (08:41→21:51)
--- NOTE | 2017-12-24 08:42 | RAD ---
HISTORY: Dyspnea, left lower lobe pneumonia Study: Single-view chest Comparison: December 23, 2017 Findings: Left axillary surgical clips are noted. There is aortic atherosclerosis. The trachea is midline. The cardiac silhouette is unremarkable. There is ill-defined opacity in the left lower lung most consis tent with bronchopneumonia with a background of chronic appearing interstitial thickening noted. Lucian cified pleural plaque versus suture projects over the left upper lobe. There is no effusion or pneumo thorax. The bony thorax is grossly unremarkable. IMPRESSION: Probable left lower lobe bronchopneumonia. Reported By:
[2017-12-24] MEDS: ROCEPHIN 1 GRAM IV PREMIX 1 G/50 ML IV.SOLN. IV SCH (09:30)
[2017-12-24] MEDS: VSL#3 PO SCH (09:35)
[2017-12-24] MEDS: ROBITUSSIN DM PO SCH ×4 (09:35→21:25)
[2017-12-24] MEDS: VIBRAMYCIN 100 MG in NS 100 ML IV + SPIKE MINIBAG* 100 ML IV SCH ×2 (09:35→21:25)
[2017-12-24] MEDS: PEPCID TAB 20 MG PO SCH ×2 (09:36→21:19)
[2017-12-24] MEDS: LASIX PO SCH (09:36)
[2017-12-24] MEDS: CORDARONE TAB 200 MG PO SCH (09:36)
[2017-12-24] MEDS: ARICEPT TAB 10 MG PO SCH (09:36)
[2017-12-24] MEDS: MEGACE PO SCH ×2 (09:36→21:18)
[2017-12-24] MEDS: SINGULAIR TAB 10 MG PO SCH (09:36)
[2017-12-24] MEDS: HEMOCYTE-PLUS PO SCH (09:37)
[2017-12-24] MEDS: PLAVIX PO SCH (09:37)
[2017-12-24] MEDS: NAMENDA TAB 10 MG PO SCH ×2 (09:37→21:19)
[2017-12-24] MEDS: DIFLUCAN 200 MG IV PREMIX* 200 MG/100 ML BAG IV SCH (21:18)
[2017-12-24] MEDS: NEURONTIN CAP 300 MG PO SCH (21:19)
[2017-12-24] MEDS: PRAVACHOL PO SCH (21:19)
[2017-12-24] MEDS: TYLENOL 500 MG TAB EXTRA STRENGTH PO PRN (21:25)
[2017-12-24] MEDS: REQUIP PO SCH (21:25)
[2017-12-24] MEDS ORDERED: PULMICORT NEB TX 0.5 MG NEB ONE (21:51)
[2017-12-24] MEDS ORDERED: DUONEB 0.5 MG/3 MG ONE (21:51)
[2017-12-25] MEDS: DUONEB 0.5 MG/3 MG NEB SCH ×4 (01:48→12:00)
[2017-12-25 05:41] LABS: BLOOD UREA NITROGEN 14 mg/dL (7-18); CALCIUM 8.9 mg/dL (8.5-10.1); CARBON DIOXIDE 21.8 mmol/L (21-32); CHLORIDE 110 mmol/L (98-107); CREATININE 0.79 mg/dL (0.55-1.02); SODIUM 142 mmol/L (136-145); eGFR NON BLACK RACES > 60 (>60)
[2017-12-25 06:18] LABS: BASOPHILS # (AUTO) 0.1 X10^3/uL (0.0-0.1); BASOPHILS % (AUTO) 1.1 % (0.2-1.0); EOSINOPHILS # (AUTO) 0.1 x10^3/uL (0.0-0.2); EOSINOPHILS % (AUTO) 1.7 % (0.9-2.9); HEMATOCRIT 27.3 % (36.0-47.0); HEMOGLOBIN 9.5 g/dL (12.0-16.0); LYMPHOCYTES # (AUTO) 2.1 X10^3/uL (1.3-2.9); LYMPHOCYTES % (AUTO) 26.5 % (21.0-51.0); MEAN CORPUSCULAR HEMOGLOBIN 29.7 pg (27.0-34.0); MEAN CORPUSCULAR HGB CONC 34.9 g/dL (33.0-35.0); MEAN PLATELET VOLUME 8.1 fL (7.4-11.0); MONOCYTES % (AUTO) 12.2 % (0.0-13.0); NEUTROPHILS # (AUTO) 4.7 x10^3/uL (2.2-4.8); NEUTROPHILS % (AUTO) 58.5 % (42.0-75.0); PLATELET COUNT 365 X10^3/uL (150.0-450.0); RED BLOOD COUNT 3.21 X10^6/uL (3.5-5.4); RED CELL DISTRIBUTION WIDTH 16.6 % (11.6-16.5)
[2017-12-25] MEDS: VIBRAMYCIN 100 MG in NS 100 ML IV + SPIKE MINIBAG* 100 ML IV SCH (08:22)
[2017-12-25] MEDS: NAMENDA TAB 10 MG PO SCH (08:23)
[2017-12-25] MEDS: HEMOCYTE-PLUS PO SCH (08:23)
[2017-12-25] MEDS: ROCEPHIN 1 GRAM IV PREMIX 1 G/50 ML IV.SOLN. IV SCH (08:23)
[2017-12-25] MEDS: ARICEPT TAB 10 MG PO SCH (08:23)
[2017-12-25] MEDS: PEPCID TAB 20 MG PO SCH (08:24)
[2017-12-25] MEDS: PLAVIX PO SCH (08:24)
[2017-12-25] MEDS: SINGULAIR TAB 10 MG PO SCH (08:24)
[2017-12-25] MEDS: VSL#3 PO SCH (08:24)
[2017-12-25] MEDS: ROBITUSSIN DM PO SCH ×2 (08:25→13:05)
[2017-12-25] MEDS: MEGACE PO SCH (08:25)
[2017-12-25] MEDS: LASIX PO SCH (08:25)
[2017-12-25] MEDS: CORDARONE TAB 200 MG PO SCH (08:25)
[2017-12-25] MEDS: PULMICORT NEB TX 0.5 MG NEB SCH (08:45)
[2017-12-25 12:58] VITALS: BP 184/78
[2017-12-25 13:43] LABS: ALANINE AMINOTRANSFERASE 15 Units/L (12-78); ALBUMIN 2.3 g/dL (3.4-5.0); ALKALINE PHOSPHATASE 47 Units/L (46-116); ASPARTATE AMINO TRANSFERASE 8 Units/L (15-37); COR CA(FOR HYPOALB) 10.3 mg/dL (8.5-10.1); TOTAL PROTEIN 6.2 g/dL (6.4-8.2)
--- NOTE | 2017-12-25 19:39 | PCM.PROG ---
Progress Note - Progress Note for Day of Date: 12/23/17 - Subjective Subjective: WAS ADMITTED FOR TREATMENT OF LEFT LOWER LOBE PNEUMONIA. SHE WAS TRANSFUSED WITH TWO UNITS OF PACKED RED BLOOD CELLS YESTERDAY FOR ANEMIA. TODAY, SHE IS ALERT AND ORIENTED, LYING IN BED ON MORNING ROUNDS. SHE CONTINUES WITH COMPLAINTS OF COUGH AND SHORTNESS OF BREATH. ON EXAMINATION, HEART IS REGULAR IN RATE AND RHYTHM. BILATERAL LUNGS ARE NOTED WITH DIMINISHED LUNG SOUNDS THROUGHOUT. ABDOMEN IS ROUND, SOFT, AND NON-TENDER WITH NORMAL BOWEL SOUNDS NOTED IN ALL QUADRANTS. HER VITALS THIS MORNING ARE 99.4-84-20-97%- 143/63. SHE RAN A TEMPERATURE OF 101.5 AT 4 AM. LABS WERE OBTAINED. ABNORMAL LAB VALUES INCLUDE THE FOLLOWING: RBC 3.19, HGB 9.3, HCT 26.9, POTASSIUM 3.4, CHLORIDE 109, CARBON DIOXIDE 18.0, GLUCOSE 100, CALCIUM 8.0, ALK PHOS 45, TOTAL PROTEIN 6.0, ALBUMIN 2.2. TODAY, WE WILL CONTINUE WITH IV ANTIBIOTICS, RESPIRATORY TREATMENTS, AND CURRENT PLAN OF CARE. OTHERWISE, WE WILL FOLLOW UP WITH AM LABS AND 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 PATIENT. WE WILL PLAN FOR DISCHARGE FOR TOMORROW. - Past Medical Family Social History Past Med/Fam/Surg Hx: No changes since H&P Allergies: Allergies No Known Drug Allergies Allergy (Verified 12/20/17 17:46) - Review of Systems ROS: No change since H&P - Vital Signs and I&O's Vital Signs: Temperature 99.6 F Pulse Rate [Right Radial] 88 Pulse Rate 85 Respiratory Rate 18 Blood Pressure [Left Calf] 126/56 Blood Pressure [Left Arm] 184/78 Blood Pressure [Right Calf] 168/77 Blood Pressure [Right Arm] 104/59 Blood Pressure 81/46 O2 Sat by Pulse Oximetry 98 Intake and Output: Intake & Output 12/23/17 12/24/17 12/25/17 12/26/17 11:59 11:59 11:59 11:59 Intake Total 840 / 840 1858 / 1858 730 / 730 Output Total 1550 / 1550 2750 / 2750 1100 / 1100 Balance -710 / -710 -892 / -892 -370 / -370 - Physical Exam Oriented: Normal Eyes: Normal Ear: Normal Nose: Normal Throat: Normal Respiratory: Diminished Cardiovascular: Normal. negative: S3, S4, Murmur : Normal Auscultation: Bowel Sounds: Normal Tenderness: Normal Skin: Normal Musculoskeletal: Normal Psychiatric: Normal Mood Description: Calm Affect: Normal Speech Pattern: Clear, Appropriate - Laboratory and Diagnostics Result Diagrams: 12/25/17 05:15 12/25/17 05:15 Labs: 12/21/17 21:30 Stool Stool Culture - Final 12/21/17 21:30 Stool - Final 12/20/17 19:05 Sputum - Expectorated Sputum Sputum Culture - Final Enterobacter Cloacae 12/20/17 19:05 Sputum - Expectorated Sputum - Final 12/20/17 15:31 Blood Blood Culture - Preliminary 12/20/17 15:25 Blood Blood Culture - Preliminary Laboratory WBC 8.0 X10^3/uL (3.6-10.0) 12/25/17 05:15 RBC 3.21 X10^6/uL (3.5-5.4) L 12/25/17 05:15 Hgb 9.5 g/dL (12.0-16.0) L 12/25/17 05:15 Hct 27.3 % (36.0-47.0) L 12/25/17 05:15 MCV 85.0 fL (80.0-100.0) 12/25/17 05:15 MCH 29.7 pg (27.0-34.0) 12/25/17 05:15 MCHC 34.9 g/dL (33.0-35.0) 12/25/17 05:15 RDW 16.6 % (11.6-16.5) H 12/25/17 05:15 Plt Count 365 X10^3/uL (150.0-450.0) 12/25/17 05:15 Plt Count Comment Adequate (ADEQUATE) 12/22/17 04:23 MPV 8.1 fL (7.4-11.0) 12/25/17 05:15 Neut % (Auto) 58.5 % (42.0-75.0) 12/25/17 05:15 Lymph % (Auto) 26.5 % (21.0-51.0) 12/25/17 05:15 [place] % (Auto) 12.2 % (0.0-13.0) 12/25/17 05:15 Eos % (Auto) 1.7 % (0.9-2.9) 12/25/17 05:15 Baso % (Auto) 1.1 % (0.2-1.0) H 12/25/17 05:15 Neut # (Auto) 4.7 x10^3/uL (2.2-4.8) 12/25/17 05:15 Lymph # (Auto) 2.1 X10^3/uL (1.3-2.9) 12/25/17 05:15 [place] # (Auto) 1.0 x10^3/uL (0.3-0.8) H 12/25/17 05:15 Eos # (Auto) 0.1 x10^3/uL (0.0-0.2) 12/25/17 05:15 Baso # (Auto) 0.1 X10^3/uL (0.0-0.1) 12/25/17 05:15 Absolute Nucleated RBC 0.0 /100WBC 12/25/17 05:15 Plt Morphology Comment Normal (NORMAL) 12/22/17 04:23 RBC Morphology Abnormal (NORMAL) A 12/22/17 04:23 Hypochromasia Slight A 12/21/17 04:12 Poikilocytosis Slight A 12/21/17 04:12 Anisocytosis 2+ A 12/22/17 04:23 Ovalocytes Slight A 12/21/17 04:12 INR Target Range - 12/20/17 15:25 INR 1.11 (0.8-1.3) 12/20/17 15:25 Sodium 142 mmol/L (136-145) 12/25/17 05:15 Corrected Sodium TNP 12/25/17 05:15 Potassium 3.8 mmol/L (3.5-5.1) 12/25/17 05:15 Chloride 110 mmol/L (98-107) H 12/25/17 05:15 Carbon Dioxide 21.8 mmol/L (21-32) 12/25/17 05:15 BUN 14 mg/dL (7-18) 12/25/17 05:15 Creatinine 0.79 mg/dL (0.55-1.02) 12/25/17 05:15 Est GFR (MDRD) Af Amer > 60 (>60) 12/25/17 05:15 Est GFR (MDRD) Non-Af > 60 (>60) 12/25/17 05:15 Glucose 87 mg/dL (65-99) 12/25/17 05:15 Lactic Acid 1.9 mmol/L (0.4-2.0) 12/20/17 15:25 Calcium 8.9 mg/dL (8.5-10.1) 12/25/17 05:15 Corrected Calcium 10.3 mg/dL (8.5-10.1) H 12/25/17 05:15 Magnesium 2.2 mg/dL (1.7-2.9) 12/24/17 04:17 Total Bilirubin 0.30 mg/dL (0.2-1.0) 12/25/17 05:15 AST 8 Units/L (15-37) L 12/25/17 05:15 ALT 15 Units/L (12-78) 12/25/17 05:15 Alkaline Phosphatase 47 Units/L (46-116) 12/25/17 05:15 Creatine Kinase 35 Units/L (26-192) 12/20/17 15:25 CK-MB (CK-2) < 1.0 ng/mL (0-4.0) 12/20/17 15:25 CK/CKMB % Calc 2.9 % (<4) 12/20/17 15:25 Troponin I < 0.02 ng/mL (0-1.5) 12/20/17 15:25 Total Protein 6.2 g/dL (6.4-8.2) L 12/25/17 05:15 Albumin 2.3 g/dL (3.4-5.0) L 12/25/17 05:15 Globulin 3.9 g/dL (2.5-4.5) 12/25/17 05:15 Albumin/Globulin Ratio 0.6 Ratio (1.1-2.1) L 12/25/17 05:15 Specimen Type Catherized urine 12/20/17 16:02 Urine Color Yellow (YELLOW) 12/20/17 16:02 Urine Appearance Slightly hazy (CLEAR) 12/20/17 16:02 Urine pH 6.5 (5.0 - 8.0) 12/20/17 16:02 Ur Specific [place] 1.010 (1.000-1.030) 12/20/17 16:02 Urine Protein 2+ (NEGATIVE) 12/20/17 16:02 Urine Glucose (UA) Negative (NEGATIVE) 12/20/17 16:02 Urine Ketones Negative (NEGATIVE) 12/20/17 16:02 Urine Occult Blood 2+ (NEGATIVE) 12/20/17 16:02 Urine Nitrite Negative (NEGATIVE) 12/20/17 16:02 Urine Bilirubin Negative (NEGATIVE) 12/20/17 16:02 Urine Urobilinogen Normal (NORMAL) 12/20/17 16:02 Ur Leukocyte Esterase 2+ (NEGATIVE) 12/20/17 16:02 Urine RBC 3-5 /HPF (NONE SEEN) 12/20/17 16:02 Urine WBC 3-5 /HPF (NONE SEEN) 12/20/17 16:02 Ur Squamous Epith Cells Few /HPF (NEGATIVE) 12/20/17 16:02 Urine Bacteria Trace /HPF (NEGATIVE) 12/20/17 16:02 Hyaline Casts Rare /LPF (NEGATIVE) 12/20/17 16:02 Urine Mucus Few /HPF (NEGATIVE) 12/20/17 16:02 Ur Culture Indicated? No/not indicated 12/20/17 16:02 Stool Description 5g unformed green 12/23/17 20:18 Stl Occult Blood (IFOB) Negative (NEGATIVE) 12/23/17 20:18 Stool for White Cells Negative (NEGATIVE) 12/21/17 21:30 Stl C. diff Tox B Gene Positive (NEGATIVE) A 12/21/17 21:30 Stl C. diff [id number] Negative (NEGATIVE) 12/21/17 21:30 Cryptosporid parvum Ag Negative (NEGATIVE) 12/21/17 21:30 Giardia lamblia Ag Negative (NEGATIVE) 12/21/17 21:30 Blood Type A POSITIVE 12/22/17 09:49 Antibody Screen Negative 12/22/17 09:49 Crossmatch See Detail 12/22/17 09:49 - Plan (1) Left lower lobe pneumonia Status: Acute Qualifiers: Pneumonia type: due to unspecified organism Qualified Code(s): J18.1 - Lobar pneumonia, unspecified organism Plan: pneumonia protocol, rocephin, doxycycline, respiratory treatments, supplemental oxygen, continue to monitor (2) Anemia Status: Chronic Qualifiers: Anemia type: iron deficiency Iron deficiency anemia type: unspecified iron deficiency Qualified Code(s): D50.9 - Iron deficiency anemia, unspecified Plan: CONTINUE HEMOCYTE, 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
--- NOTE | 2017-12-25 19:42 | PCM.PROG ---
Progress Note - Progress Note for Day of Date: 12/25/17 - Subjective Subjective: WAS ADMITTED FOR TREATMENT OF LEFT LOWER LOBE PNEUMONIA. SHE WAS TRANSFUSED WITH TWO UNITS OF PACKED RED BLOOD CELLS YESTERDAY FOR ANEMIA. TODAY, SHE IS ALERT AND ORIENTED, LYING IN BED ON MORNING ROUNDS. SHE CONTINUES WITH COMPLAINTS OF COUGH AND SHORTNESS OF BREATH. ON EXAMINATION, HEART IS REGULAR IN RATE AND RHYTHM. BILATERAL LUNGS ARE NOTED WITH DIMINISHED LUNG SOUNDS THROUGHOUT. ABDOMEN IS ROUND, SOFT, AND NON-TENDER WITH NORMAL BOWEL SOUNDS NOTED IN ALL QUADRANTS. HER VITALS THIS MORNING ARE 98.9-78-18-100% -141/63. LABS WERE OBTAINED. ABNORMAL LAB VALUES INCLUDE THE FOLLOWING: RBC 3.24 , HGB 9.6, HCT 27.5, CHLORIDE 110. SPUTUM CULTURE REPORTED GROWTH OF ENTEROBACTER CLOACAE. IT IS SENSITIVE TO THE LEVAQUIN THAT SHE IS CURRENTLY RECEIVING. TODAY, WE WILL CONTINUE WITH IV ANTIBIOTICS, RESPIRATORY TREATMENTS , AND CURRENT PLAN OF CARE. OTHERWISE, WE WILL FOLLOW UP WITH AM LABS AND 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 PATIENT. WE WILL PLAN FOR DISCHARGE FOR TOMORROW. - Past Medical Family Social History Past Med/Fam/Surg Hx: No changes since H&P Allergies: Allergies No Known Drug Allergies Allergy (Verified 12/20/17 17:46) - Review of Systems ROS: No change since H&P - Vital Signs and I&O's Vital Signs: Temperature 99.6 F Pulse Rate [Right Radial] 88 Pulse Rate 85 Respiratory Rate 18 Blood Pressure [Left Calf] 126/56 Blood Pressure [Left Arm] 184/78 Blood Pressure [Right Calf] 168/77 Blood Pressure [Right Arm] 104/59 Blood Pressure 81/46 O2 Sat by Pulse Oximetry 98 Intake and Output: Intake & Output 12/23/17 12/24/17 12/25/17 12/26/17 11:59 11:59 11:59 11:59 Intake Total 840 / 840 1858 / 1858 730 / 730 Output Total 1550 / 1550 2750 / 2750 1100 / 1100 Balance -710 / -710 -892 / -892 -370 / -370 - Physical Exam Oriented: Normal Eyes: Normal Ear: Normal Nose: Normal Throat: Normal Respiratory: Diminished Cardiovascular: Normal. negative: S3, S4, Murmur : Normal Auscultation: Bowel Sounds: Normal Palpation: Normal Tenderness: Normal Skin: Normal Musculoskeletal: Normal Psychiatric: Normal Mood Description: Calm Affect: Normal Speech Pattern: Clear, Appropriate - Laboratory and Diagnostics Result Diagrams: 12/25/17 05:15 12/25/17 05:15 Labs: 12/21/17 21:30 Stool Stool Culture - Final 12/21/17 21:30 Stool - Final 12/20/17 19:05 Sputum - Expectorated Sputum Sputum Culture - Final Enterobacter Cloacae 12/20/17 19:05 Sputum - Expectorated Sputum - Final 12/20/17 15:31 Blood Blood Culture - Preliminary 12/20/17 15:25 Blood Blood Culture - Preliminary Laboratory WBC 8.0 X10^3/uL (3.6-10.0) 12/25/17 05:15 RBC 3.21 X10^6/uL (3.5-5.4) L 12/25/17 05:15 Hgb 9.5 g/dL (12.0-16.0) L 12/25/17 05:15 Hct 27.3 % (36.0-47.0) L 12/25/17 05:15 MCV 85.0 fL (80.0-100.0) 12/25/17 05:15 MCH 29.7 pg (27.0-34.0) 12/25/17 05:15 MCHC 34.9 g/dL (33.0-35.0) 12/25/17 05:15 RDW 16.6 % (11.6-16.5) H 12/25/17 05:15 Plt Count 365 X10^3/uL (150.0-450.0) 12/25/17 05:15 Plt Count Comment Adequate (ADEQUATE) 12/22/17 04:23 MPV 8.1 fL (7.4-11.0) 12/25/17 05:15 Neut % (Auto) 58.5 % (42.0-75.0) 12/25/17 05:15 Lymph % (Auto) 26.5 % (21.0-51.0) 12/25/17 05:15 [place] % (Auto) 12.2 % (0.0-13.0) 12/25/17 05:15 Eos % (Auto) 1.7 % (0.9-2.9) 12/25/17 05:15 Baso % (Auto) 1.1 % (0.2-1.0) H 12/25/17 05:15 Neut # (Auto) 4.7 x10^3/uL (2.2-4.8) 12/25/17 05:15 Lymph # (Auto) 2.1 X10^3/uL (1.3-2.9) 12/25/17 05:15 [place] # (Auto) 1.0 x10^3/uL (0.3-0.8) H 12/25/17 05:15 Eos # (Auto) 0.1 x10^3/uL (0.0-0.2) 12/25/17 05:15 Baso # (Auto) 0.1 X10^3/uL (0.0-0.1) 12/25/17 05:15 Absolute Nucleated RBC 0.0 /100WBC 12/25/17 05:15 Plt Morphology Comment Normal (NORMAL) 12/22/17 04:23 RBC Morphology Abnormal (NORMAL) A 12/22/17 04:23 Hypochromasia Slight A 12/21/17 04:12 Poikilocytosis Slight A 12/21/17 04:12 Anisocytosis 2+ A 12/22/17 04:23 Ovalocytes Slight A 12/21/17 04:12 INR Target Range - 12/20/17 15:25 INR 1.11 (0.8-1.3) 12/20/17 15:25 Sodium 142 mmol/L (136-145) 12/25/17 05:15 Corrected Sodium TNP 12/25/17 05:15 Potassium 3.8 mmol/L (3.5-5.1) 12/25/17 05:15 Chloride 110 mmol/L (98-107) H 12/25/17 05:15 Carbon Dioxide 21.8 mmol/L (21-32) 12/25/17 05:15 BUN 14 mg/dL (7-18) 12/25/17 05:15 Creatinine 0.79 mg/dL (0.55-1.02) 12/25/17 05:15 Est GFR (MDRD) Af Amer > 60 (>60) 12/25/17 05:15 Est GFR (MDRD) Non-Af > 60 (>60) 12/25/17 05:15 Glucose 87 mg/dL (65-99) 12/25/17 05:15 Lactic Acid 1.9 mmol/L (0.4-2.0) 12/20/17 15:25 Calcium 8.9 mg/dL (8.5-10.1) 12/25/17 05:15 Corrected Calcium 10.3 mg/dL (8.5-10.1) H 12/25/17 05:15 Magnesium 2.2 mg/dL (1.7-2.9) 12/24/17 04:17 Total Bilirubin 0.30 mg/dL (0.2-1.0) 12/25/17 05:15 AST 8 Units/L (15-37) L 12/25/17 05:15 ALT 15 Units/L (12-78) 12/25/17 05:15 Alkaline Phosphatase 47 Units/L (46-116) 12/25/17 05:15 Creatine Kinase 35 Units/L (26-192) 12/20/17 15:25 CK-MB (CK-2) < 1.0 ng/mL (0-4.0) 12/20/17 15:25 CK/CKMB % Calc 2.9 % (<4) 12/20/17 15:25 Troponin I < 0.02 ng/mL (0-1.5) 12/20/17 15:25 Total Protein 6.2 g/dL (6.4-8.2) L 12/25/17 05:15 Albumin 2.3 g/dL (3.4-5.0) L 12/25/17 05:15 Globulin 3.9 g/dL (2.5-4.5) 12/25/17 05:15 Albumin/Globulin Ratio 0.6 Ratio (1.1-2.1) L 12/25/17 05:15 Specimen Type Catherized urine 12/20/17 16:02 Urine Color Yellow (YELLOW) 12/20/17 16:02 Urine Appearance Slightly hazy (CLEAR) 12/20/17 16:02 Urine pH 6.5 (5.0 - 8.0) 12/20/17 16:02 Ur Specific [place] 1.010 (1.000-1.030) 12/20/17 16:02 Urine Protein 2+ (NEGATIVE) 12/20/17 16:02 Urine Glucose (UA) Negative (NEGATIVE) 12/20/17 16:02 Urine Ketones Negative (NEGATIVE) 12/20/17 16:02 Urine Occult Blood 2+ (NEGATIVE) 12/20/17 16:02 Urine Nitrite Negative (NEGATIVE) 12/20/17 16:02 Urine Bilirubin Negative (NEGATIVE) 12/20/17 16:02 Urine Urobilinogen Normal (NORMAL) 12/20/17 16:02 Ur Leukocyte Esterase 2+ (NEGATIVE) 12/20/17 16:02 Urine RBC 3-5 /HPF (NONE SEEN) 12/20/17 16:02 Urine WBC 3-5 /HPF (NONE SEEN) 12/20/17 16:02 Ur Squamous Epith Cells Few /HPF (NEGATIVE) 12/20/17 16:02 Urine Bacteria Trace /HPF (NEGATIVE) 12/20/17 16:02 Hyaline Casts Rare /LPF (NEGATIVE) 12/20/17 16:02 Urine Mucus Few /HPF (NEGATIVE) 12/20/17 16:02 Ur Culture Indicated? No/not indicated 12/20/17 16:02 Stool Description 5g unformed green 12/23/17 20:18 Stl Occult Blood (IFOB) Negative (NEGATIVE) 12/23/17 20:18 Stool for White Cells Negative (NEGATIVE) 12/21/17 21:30 Stl C. diff Tox B Gene Positive (NEGATIVE) A 12/21/17 21:30 Stl C. diff [id number] Negative (NEGATIVE) 12/21/17 21:30 Cryptosporid parvum Ag Negative (NEGATIVE) 12/21/17 21:30 Giardia lamblia Ag Negative (NEGATIVE) 12/21/17 21:30 Blood Type A POSITIVE 12/22/17 09:49 Antibody Screen Negative 12/22/17 09:49 Crossmatch See Detail 12/22/17 09:49 - Plan (1) Left lower lobe pneumonia Status: Acute Qualifiers: Pneumonia type: due to unspecified organism Qualified Code(s): J18.1 - Lobar pneumonia, unspecified organism Plan: pneumonia protocol, rocephin, doxycycline, respiratory treatments, supplemental oxygen, continue to monitor (2) Anemia Status: Chronic Qualifiers: Anemia type: iron deficiency Iron deficiency anemia type: unspecified iron deficiency Qualified Code(s): D50.9 - Iron deficiency anemia, unspecified Plan: CONTINUE HEMOCYTE, 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
--- NOTE | 2018-01-16 02:07 | DR.CARTERD ---
- Discharge Summary for: Discharge Summary for Date of:: 12/25/17 - Admission Date Date of Admission: 12/21/17 - Admission Diagnoses Admission Diagnosis: (1) Left lower lobe pneumonia (2) Shortness of breath (3) Diarrhea - Discharge Date Discharge Date: 12/25/17 - Discharge Diagnoses Discharge Diagnosis: (1) Left lower lobe pneumonia (2) Shortness of breath (3) Anemia (4) C-Difficile diarrhea - Hospital Course Hospital Course: DAY ONE, MS. SUN IS AN 82 YEAR OLD PATIENT OF OURS WHO PRESENTED TO THE EMERGENCY ROOM WITH REPORTS OF DECREASED BLOOD PRESSURE. PATIENT REPORTED SYMPTOMS STARTED TWO TO THREE DAYS PRIOR TO ARRIVAL. PATIENT REPORTED SHE HAD FEVER AT HOME AND HAD ALSO HAD SHORTNESS OF BREATH AND UPPER BACK PAIN. ON ARRIVAL, VITALS WERE: 709-97-89-99%RA-81/46. LABS OBTAINED AND ABNORMALS WERE: WBC 10.2, RBC 2.96, HGB 8.6, HCT 25.5, RDW 17.8, PLT COUNT 514, BUN 23, CREAT 1.22, CALCIUM 8.2, ALBUMIN 2.6, GLOBULIN 4.6, A/G RATIO 0.6. CHEST XRAY OBTAINED AND REPORTED LEFT LOWER LOBE INFILTRATE AND APPEARED SLIGHTLY IMPROVED FROM PRIOR EXAM. PATIENT NOTED WITH A CHRONIC INDEWELLING BUITRAGO CATHETER THAT WAS CHANGED ON THE 16TH OF EVERY MONTH. PATIENT ADMITTED TO THE HOSPITAL FOR FURTHER EVALUATION AND TREATMENT. SHE WAS STARTED ON PNEUMONIA PROTOCOL ON ROCEPHIN AND DOXYCYCLINE WELL RESPIRATORY TREATMENTS AND SUPPLEMENTAL OXYGEN. WE CONTINUED TO MONITOR. DAY TWO, SHE CONTINUED WITH COMPLAINTS OF COUGH AND SHORTNESS OF BREATH. SHE ALSO REPORTED LOOSE STOOLS. ON EXAMINATION, HEART WAS REGULAR IN RATE AND RHYTHM. BILATERAL LUNGS WERE NOTED WITH DIMINISHED LUNG SOUNDS THROUGHOUT. ABDOMEN WAS ROUND, SOFT, AND NON-TENDER WITH NORMAL BOWEL SOUNDS NOTED IN ALL QUADRANTS. HER VITALS WERE 99.0-77-20-95%-139/59. LABS WERE OBTAINED. ABNORMAL LAB VALUES INCLUDED THE FOLLOWING: RBC 2.61, HGB 7.6, HCT 22.3, PLT COUNT 455, CHLORIDE 109, CALCIUM 8.0, TOTAL PROTEIN 6.1, ALBUMIN 2.1. CHEST XRAY WAS STABLE. WE CONTINUED WITH IV ANTIBIOTICS AND RESPIRATORY TREATMENTS. DAY THREE, SHE CONTINUED WITH COMPLAINTS OF COUGH AND SHORTNESS OF BREATH. ON EXAMINATION, HEART WAS REGULAR IN RATE AND RHYTHM. BILATERAL LUNGS WERE NOTED WITH DIMINISHED LUNG SOUNDS THROUGHOUT. ABDOMEN WAS ROUND, SOFT, AND NON-TENDER WITH NORMAL BOWEL SOUNDS NOTED IN ALL QUADRANTS. HER VITALS WERE 98.8-85-99.0-18 -98%-126/56. LABS WERE OBTAINED. ABNORMAL LAB VALUES INCLUDED THE FOLLOWING: RBC 2.48, HGB 7.2, HCT 21.4, CHLORIDE 111, CARBON DIOXIDE 19.5, CALCIUM 8.3, TOTAL PROTEIN 6.2, ALBUMIN 2.1. STOOL STUDIES REPORTED THAT PATIENT WAS POSITIVE FOR C.DIFF TOXIN B. SHE REPORTED THAT LOOSE STOOLS HAD IMPROVED. CHEST XRAY WAS STABLE. WE CONTINUED WITH IV ANTIBIOTICS AND RESPIRATORY TREATMENTS. WE TRANSFUSED TWO UNITS OF PACKED RED BLOOD CELLS AND MONITORED. DAY FOUR, PATIENT WAS TRANSFUSED WITH TWO UNITS OF PACKED RED BLOOD CELLS ON DAY THREE FOR ANEMIA. SHE WAS ALERT AND ORIENTED, LYING IN BED ON MORNING ROUNDS. SHE CONTINUED WITH COMPLAINTS OF COUGH AND SHORTNESS OF BREATH. ON EXAMINATION, HEART WAS REGULAR IN RATE AND RHYTHM. BILATERAL LUNGS WERE NOTED WITH DIMINISHED LUNG SOUNDS THROUGHOUT. ABDOMEN WAS ROUND, SOFT, AND NON-TENDER WITH NORMAL BOWEL SOUNDS NOTED IN ALL QUADRANTS. HER VITALS WERE 99.4-84-20-97%- 143/63. PATIENT HAD A TEMPERATURE OF 101.5 AT 4 AM. LABS WERE OBTAINED. ABNORMAL LAB VALUES INCLUDED THE FOLLOWING: RBC 3.19, HGB 9.3, HCT 26.9, POTASSIUM 3.4, CHLORIDE 109, CARBON DIOXIDE 18.0, GLUCOSE 100, CALCIUM 8.0, ALK PHOS 45, TOTAL PROTEIN 6.0, ALBUMIN 2.2. WE CONTINUED WITH IV ANTIBIOTICS AND RESPIRATORY TREATMENTS. DAY FIVE, PATIENT WAS ALERT AND ORIENTED, LYING IN BED ON MORNING ROUNDS. SHE CONTINUED WITH COMPLAINTS OF COUGH AND SHORTNESS OF BREATH. ON EXAMINATION, HEART WAS REGULAR IN RATE AND RHYTHM. BILATERAL LUNGS WERE NOTED WITH DIMINISHED LUNG SOUNDS THROUGHOUT. ABDOMEN WAS ROUND, SOFT, AND NON-TENDER WITH NORMAL BOWEL SOUNDS NOTED IN ALL QUADRANTS. HER VITALS WERE 98.9-78-18-100%-141/ 63. LABS WERE OBTAINED. ABNORMAL LAB VALUES INCLUDED THE FOLLOWING: RBC 3.24, HGB 9.6, HCT 27.5, CHLORIDE 110. SPUTUM CULTURE REPORTED GROWTH OF ENTEROBACTER CLOACAE. IT WAS SENSITIVE TO THE LEVAQUIN THAT SHE WAS RECEIVING. WE CONTINUED WITH TREATMENT AND MONITORED. DAY SIX, PATIENT WAS FEELING BETTER. SHE DENIED SHORTNESS OF BREATH. FINAL BLOOD AND STOOL CULTURES NEGATIVE FOR GROWTH. HEMOGLOBIN REMAINED STABLE AT 9.5. PATIENT WAS DOING WELL. WE PLANNED FOR DISCHARGE WITH ORAL ANTIBIOTICS AND HOME HEALTH CARE. INSTRUCTIONS FOR MEDICATIONS AND FOLLOW UP WERE DISCUSSED WITH PATIENT AND FAMILY, BOTH VOICED UNDERSTANDING. PATIENT DISCHARGED HOME IN STABLE CONDITION WITH FAMILY. Labs: Microbiology 12/20/17 19:05 Sputum - Expectorated Sputum Sputum Culture - Final 12/20/17 19:05 Sputum - Expectorated Sputum - Final Enterobacter Cloacae - Discharge Medications Discharge Medications: Home Medication List amoxicillin 1 cap PO QID 12/20/17 [History] furosemide [Lasix] 1 tab PO DAILY 12/20/17 [History] ciprofloxacin HCl [Cipro] 500 mg PO BID #28 tab 12/25/17 [Rx] Prescriptions: ciprofloxacin HCl [Cipro] Derik Cohen donepezil 10 mg PO DAILY 08/02/17 gabapentin 300 mg PO HS 08/02/17 memantine 10 mg PO BID 08/02/17 montelukast 10 mg PO DAILY 08/02/17 amiodarone 200 mg PO DAILY 09/04/17 clopidogrel [Plavix] 75 mg PO DAILY 09/04/17 quetiapine 50 mg PO HS 09/04/17 ropinirole 1 mg PO HS 09/04/17 iron-folic acid-mv, min cmb#15 [Hemocyte-Plus] 1 cap PO DAILY #30 cap pravastatin 40 mg PO HS 09/17/17 Budesonide 0.25 mg IH BID 09/28/17 famotidine 40 mg PO BID 09/28/17 ipratropium-albuterol 1 neb NEB QID PRN 09/28/17 L.acidoph, paracasei,B. lactis 1 each PO DAILY 11/02/17 megestrol 40 mg PO BID #60 tab 11/07/17 - Discharge Disposition Discharge Disposition: PATIENT IS TO FOLLOW UP IN OUR OFFICE IN ONE WEEK.
== END 2017-12-25 13:50 | disposition home health service (06) | DRG 195 ==
LOC: ER 15:01 → MED/SURG 15:01
PROVIDERS: ADMIT Internal Medicine; ATTEND Internal Medicine
DX: I95.89 Other hypotension; B96.89 Other specified bacterial agents as the cause of diseases classified elsewhere; I10 Essential (primary) hypertension; R26.89 Other abnormalities of gait and mobility; J18.8 Other pneumonia, unspecified organism; I25.10 Atherosclerotic heart disease of native coronary artery without angina pectoris; E78.2 Mixed hyperlipidemia; R06.02 Shortness of breath; R94.4 Abnormal results of kidney function studies; J45.998 Other asthma; Z66 Do not resuscitate; D50.8 Other iron deficiency anemias; J44.9 Chronic obstructive pulmonary disease, unspecified
CPT/HCPCS: 36415; 36430; 51702; 71010; 71020; 71045; 71046; 80048; 80053; 81001; 82270; 82550; 82553; 83605; 83630; 83735; 84484; 85014; 85018; 85025; 85610; 86850; 86900; 86901; 86922; 87040; 87045; 87070; 87077; 87186; 87205; 87328; 87329; 87449; 87493; 87899; 93005; 94640; 94760; 96365; 96367; 96374; 97163; 97165; 99284; A4216; A4222; P9016; S0179; G0378; J0696; J1450; J3475; J3490; J7030; J7040; J7050; J7620; J7626; J8499

== ENCOUNTER 2018-07-19 14:45 | Inpatient (IN) ==
[2018-07-19 14:53] VITALS: BMI 23.4
[2018-07-19] MEDS ORDERED: DUONEB 0.5 MG/3 MG NEB ONE (15:07)
[2018-07-19] MEDS ORDERED: SOLU-Medrol 125 MG VIAL IVP ONE (15:09)
[2018-07-19] MEDS ORDERED: SOLU-Medrol 125 MG VIAL ONE (15:11)
[2018-07-19] MEDS ORDERED: DUONEB 0.5 MG/3 MG ONE (15:13)
--- NOTE | 2018-07-19 15:14 | DR.URIAD ---
HPI Time Seen Time Seen by Provider: 07/19/18 14:58 PCP Primary Care Physician: JEANINE DO Complaint Chief Complaint:: PT C/O CCC, AND SOB TIMES SEVERAL DAYS, PT HAS ON HOME 02 2 LPM AT HOME, EXP WHEEZES NOTED , DUO NEB GIVEN PER EMS ,,BR Reviewed Nurses Notes Reviewed: Yes Source History Provided: Patient Mode of Arrival Mode of Arrival: Stretcher Timing Onset of Chief Complaint: 07/19/18 Context Recent Treated Infections: None History of Respiratory: Asthma Quality Quality of Cough: Productive and Yellow Rhinorrhea: Clear Shortness of Breath: Moderate Associated Signs and Symptoms Other Signs and Symptoms: Cough, Myalgias, Nausea, Shortness of Breath, URI and Wheeze PMH PMH Past Medical History: Yes Past Medical History: Anemia, Asthma, COPD, Coronary Artery Disease, Dyslipidemia, Hypertension and VA Past Surgical History: Yes Past Surgical History Comment: LEFT BREAST MASECTOMY, Family History History of Family Medical Conditions: Yes Family Medical History: [place] and Hypertension Social History Does patient currently use any type of tobacco product: No Have you used tobacco products in the last 12 months: No Type of Tobacco Use: None Does any household member use tobacco: No Alcohol Use: None Do you use any recreational Drugs:: No Lives With: Family Lives Where: Home infectious screening In the last 2 months have you had wt loss of >10#?: NO Have you had fever, night sweats or hemotysis?: No Have you traveled outside the country in the last 6 months?: No Isolation: Standard ROS Review of Systems Constitutional: Malaise, Weakness, Fatigue and Loss of Appetite; negative Fever Eyes: negative Eye Pain and Discharge ENTM: Ear Pain, Nose Discharge, Nose Congestion and Throat Pain Respiratoy: Productive Cough, Short of Breath and Wheezing Cardiovascular: Chest Pain Gastrointestinal/Abdominal: Nausea Genitourinary: No Symptoms Reported Neurological: Headache and Weakness Musculoskeletal: Muscle Pain Integumentary: No Symptoms Reported Hematologic/Lymphatic: Easy Bleeding and Easy Bruising Endocrine: Decreased Appetite Psychiatric: No Symptoms Reported All Other Systems: Reviewed and Negative PE Vital Signs Vitals: Temperature 98.8 F Pulse Rate [Brachial] 105 Pulse Rate 92 Respiratory Rate 24 Blood Pressure [Left Calf] 126/56 Blood Pressure [Left Arm] 152/69 Blood Pressure [Right Calf] 168/77 Blood Pressure [Right Arm] 90/78 Blood Pressure 170/72 O2 Sat by Pulse Oximetry 92 General Limitations: No Limitations General Appearance: Alert and In Distress Head Head Exam: Normal Inspection Eyes Eye exam: PERRL; negative Scleral Icterus and Conjunctival Injection ENT ENT Exam: Normal External Ear Exam External Ear Exam: Normal External Inspection TM/Canal Exam: Bilateral: Bulging Nose Exam: Normal Nose Exam Mouth Exam: Normal Inspection Throat Exam: Tonsillar Erythema; negative Tonsillomegaly and Tonsillar Exudate Neck Neck Exam: Trachea Midline and Other (NECK VEINS DISTENDED.) Chest Chest Inspection: Symmetric Chest Wall Rise Respiratory Respiratory Exam: Respiratory Distress Respiratory Exam: Bilateral: Wheezing and Bilateral: Rhonchi, Upper: Wheezing and Lower: Wheezing and Lower: Rhonchi Cardiovascular Cardiovascular Exam: Regular Rate, Normal Rhythm and Tachycardia Abdominal Exam Abdominal Exam: Normal Inspection, Normal Bowel Sounds and Soft Extremeties Extremities Exam: Edema (TRACE EDEMA.) Back Back Exam: Normal Inspection Neurologic Neurological Exam: Alert and Oriented X3; negative Motor Sensory Deficit Psychiatric Psychiatric Exam: Normal Affect and Anxious Skin Skin Exam: Dry MDM Additional Information Additional Information Obtained From: Family Differential Diagnosis Differential Diagnosis: Influenza A, Influenza B, Otitis media, Streptococcal pharyngitis, Viral pharyngitis, Pneumonia, Sinsusitis and URI COURSE Treatment Treatment: SEE ORDERS. Consultation Consultation Comments: DISCUSS PATIENT WITH DR. SOLORZANO. HE WILL ADMIT PATIENT. Education/Counseling Education/Counseling: Patient Educated On: Diagnosis ROR Labs Reviewed Laboratory Results Reviewed?: Yes Result Diagrams: 07/19/18 15:18 07/19/18 15:18 Laboratory: WBC 5.8 X10^3/uL (3.6-10.0) 07/19/18 15:18 RBC 3.69 X10^6/uL (3.5-5.4) 07/19/18 15:18 Hgb 10.5 g/dL (12.0-16.0) L 07/19/18 15:18 Hct 32.2 % (36.0-47.0) L 07/19/18 15:18 MCV 87.2 fL (80.0-100.0) 07/19/18 15:18 MCH 28.4 pg (27.0-34.0) 07/19/18 15:18 MCHC 32.5 g/dL (33.0-35.0) L 07/19/18 15:18 RDW 15.1 % (11.6-16.5) 07/19/18 15:18 Plt Count 353 X10^3/uL (150.0-450.0) 07/19/18 15:18 MPV 8.4 fL (7.4-11.0) 07/19/18 15:18 Neut % (Auto) 72.9 % (42.0-75.0) 07/19/18 15:18 Lymph % (Auto) 12.3 % (21.0-51.0) L 07/19/18 15:18 [place] % (Auto) 9.3 % (0.0-13.0) 07/19/18 15:18 Eos % (Auto) 4.8 % (0.9-2.9) H 07/19/18 15:18 Baso % (Auto) 0.7 % (0.2-1.0) 07/19/18 15:18 Neut # (Auto) 4.3 x10^3/uL (2.2-4.8) 07/19/18 15:18 Lymph # (Auto) 0.7 X10^3/uL (1.3-2.9) L 07/19/18 15:18 [place] # (Auto) 0.5 x10^3/uL (0.3-0.8) 07/19/18 15:18 Eos # (Auto) 0.3 x10^3/uL (0.0-0.2) H 07/19/18 15:18 Baso # (Auto) 0.0 X10^3/uL (0.0-0.1) 07/19/18 15:18 Absolute Nucleated RBC 0.0 /100WBC 07/19/18 15:18 Sodium 140 mmol/L (136-145) 07/19/18 15:18 Corrected Sodium TNP 07/19/18 15:18 Potassium 4.4 mmol/L (3.5-5.1) 07/19/18 15:18 Chloride 105 mmol/L (98-107) 07/19/18 15:18 Carbon Dioxide 26.4 mmol/L (21-32) 07/19/18 15:18 BUN 16 mg/dL (7-18) 07/19/18 15:18 Creatinine 0.96 mg/dL (0.55-1.02) 07/19/18 15:18 Est GFR (MDRD) Af Amer > 60 (>60) 07/19/18 15:18 Est GFR (MDRD) Non-Af 59 (>60) 07/19/18 15:18 Glucose 100 mg/dL (65-99) H 07/19/18 15:18 Lactic Acid 1.4 mmol/L (0.4-2.0) 07/19/18 15:18 Calcium 8.6 mg/dL (8.5-10.1) 07/19/18 15:18 Corrected Calcium 9.3 mg/dL (8.5-10.1) 07/19/18 15:18 Total Bilirubin 0.10 mg/dL (0.2-1.0) L 07/19/18 15:18 AST 24 Units/L (15-37) 07/19/18 15:18 ALT 24 Units/L (12-78) 07/19/18 15:18 Alkaline Phosphatase 101 Units/L (46-116) 07/19/18 15:18 Creatine Kinase 69 Units/L (26-192) 07/19/18 23:10 CK-MB (CK-2) 1.1 ng/mL (0-4.0) 07/19/18 23:10 CK/CKMB % Calc 1.6 % (<4) 07/19/18 23:10 Troponin I < 0.02 ng/mL (0-1.5) 07/19/18 23:10 C-Reactive Protein 30.90 mg/L (0-3.0) H 07/19/18 15:18 Total Protein 7.4 g/dL (6.4-8.2) 07/19/18 15:18 Albumin 3.1 g/dL (3.4-5.0) L 07/19/18 15:18 Globulin 4.3 g/dL (2.5-4.5) 07/19/18 15:18 Albumin/Globulin Ratio 0.7 Ratio (1.1-2.1) L 07/19/18 15:18 Specimen Type Clean catch urine 07/19/18 19:45 Urine Color Yellow (YELLOW) 07/19/18 19:45 Urine Appearance Clear (CLEAR) 07/19/18 19:45 Urine pH 5.0 (5.0 - 8.0) 07/19/18 19:45 Ur Specific [place] 1.020 (1.000-1.030) 07/19/18 19:45 Urine Protein 3+ (NEGATIVE) 07/19/18 19:45 Urine Glucose (UA) Negative (NEGATIVE) 07/19/18 19:45 Urine Ketones Negative (NEGATIVE) 07/19/18 19:45 Urine Occult Blood 1+ (NEGATIVE) 07/19/18 19:45 Urine Nitrite Negative (NEGATIVE) 07/19/18 19:45 Urine Bilirubin Negative (NEGATIVE) 07/19/18 19:45 Urine Urobilinogen Normal (NORMAL) 07/19/18 19:45 Ur Leukocyte Esterase Negative (NEGATIVE) 07/19/18 19:45 Urine RBC 0-2 /HPF (NONE SEEN) 07/19/18 19:45 Urine WBC None seen /HPF (NONE SEEN) 07/19/18 19:45 Ur Squamous Epith Cells Rare /HPF (NEGATIVE) 07/19/18 19:45 Urine Bacteria Negative /HPF (NEGATIVE) 07/19/18 19:45 Ur Culture Indicated? No/not indicated 07/19/18 19:45 Influenza Type A (PCR) Negative (NEGATIVE) 07/19/18 16:11 Influenza Type B (PCR) Negative (NEGATIVE) 07/19/18 16:11 XRAY XRAY Interpreted by: Radiologist XRAY Findings: REPORT DISCUSS WITH PATIENT. EKG [place]: Normal Rhythm: NSR
[2018-07-19 15:33] LABS: BASOPHILS % (AUTO) 0.7 % (0.2-1.0); EOSINOPHILS # (AUTO) 0.3 x10^3/uL (0.0-0.2); EOSINOPHILS % (AUTO) 4.8 % (0.9-2.9); HEMATOCRIT 32.2 % (36.0-47.0); HEMOGLOBIN 10.5 g/dL (12.0-16.0); LYMPHOCYTES # (AUTO) 0.7 X10^3/uL (1.3-2.9); LYMPHOCYTES % (AUTO) 12.3 % (21.0-51.0); MEAN CORPUSCULAR HEMOGLOBIN 28.4 pg (27.0-34.0); MEAN CORPUSCULAR HGB CONC 32.5 g/dL (33.0-35.0); MEAN CORPUSCULAR VOLUME 87.2 fL (80.0-100.0); MEAN PLATELET VOLUME 8.4 fL (7.4-11.0); MONOCYTES # (AUTO) 0.5 x10^3/uL (0.3-0.8); MONOCYTES % (AUTO) 9.3 % (0.0-13.0); NEUTROPHILS # (AUTO) 4.3 x10^3/uL (2.2-4.8); NEUTROPHILS % (AUTO) 72.9 % (42.0-75.0); PLATELET COUNT 353 X10^3/uL (150.0-450.0); RED BLOOD COUNT 3.69 X10^6/uL (3.5-5.4); RED CELL DISTRIBUTION WIDTH 15.1 % (11.6-16.5); WHITE BLOOD COUNT 5.8 X10^3/uL (3.6-10.0)
[2018-07-19 15:53] LABS: BLOOD UREA NITROGEN 16 mg/dL (7-18); CALCIUM 8.6 mg/dL (8.5-10.1); CARBON DIOXIDE 26.4 mmol/L (21-32); CHLORIDE 105 mmol/L (98-107); CREATININE 0.96 mg/dL (0.55-1.02); SODIUM 140 mmol/L (136-145); TROPONIN I < 0.02 ng/mL (0-1.5); eGFR NON BLACK RACES 59 (>60)
[2018-07-19 15:57] LABS: ALANINE AMINOTRANSFERASE 24 Units/L (12-78); ALBUMIN 3.1 g/dL (3.4-5.0); ALKALINE PHOSPHATASE 101 Units/L (46-116); ASPARTATE AMINO TRANSFERASE 24 Units/L (15-37); CKMB % 1.6 % (<4); COR CA(FOR HYPOALB) 9.3 mg/dL (8.5-10.1); CREATINE KINASE 63 Units/L (26-192); TOTAL PROTEIN 7.4 g/dL (6.4-8.2)
[2018-07-19 15:58] LABS: LACTIC ACID 1.4 mmol/L (0.4-2.0)
--- NOTE | 2018-07-19 16:23 | RAD ---
HISTORY: Asthma. Shortness of breath. Cough. Breast cancer. Uterine cancer. Study: AP portable chest Comparison: 12/25/2017 Findings: The lungs are clear. The heart size is normal. Surgical clips are present in the left axilla. Evidence for a transverse impacted fracture through the surgical neck of the right humerus is noted. This is been previously described on a shoulder x-ray from 06/19/2018 IMPRESSION: 1. No radiographic evidence of acute cardiopulmonary disease or significant change is noted when compared to the prior examination. Reported By:
[2018-07-19] MEDS ORDERED: ROCEPHIN VIAL 1 GRAM IVP ONE (17:15)
[2018-07-19] MEDS ORDERED: ROCEPHIN VIAL 1 GRAM ONE (17:21)
[2018-07-19] MEDS ORDERED: ULTRAM PO PRN (18:24)
[2018-07-19] MEDS ORDERED: TYLENOL 500 MG TAB EXTRA STRENGTH PO PRN (18:24)
[2018-07-19] MEDS ORDERED: ZOFRAN TAB 4 MG PO PRN (18:24)
[2018-07-19 19:55] LABS: BILIRUBIN,URINE NEGATIVE (NEGATIVE); BLOOD/HEMOGLOBIN,URINE 1+ (NEGATIVE); GLUCOSE, URINE NEGATIVE (NEGATIVE); KETONES,URINE NEGATIVE (NEGATIVE); LEUKOCYTE ESTERASE ,URINE NEGATIVE (NEGATIVE); NITRITES,URINE NEGATIVE (NEGATIVE); PROTEIN,URINE 3+ (NEGATIVE); UROBILINOGEN,URINE NORMAL (NORMAL)
[2018-07-19 20:04] LABS: APPEARANCE,URINE CLEAR (CLEAR); BACTERIA,URINE NEGATIVE /HPF (NEGATIVE); COLOR,URINE YELLOW (YELLOW); RBC,URINE 0-2 /HPF (NONE SEEN); SQUAMOUS EPITHELIAL CELL,UR RARE /HPF (NEGATIVE)
[2018-07-19] MEDS: PULMICORT NEB TX 0.5 MG NEB SCH (20:15)
[2018-07-19] MEDS: DUONEB 0.5 MG/3 MG NEB SCH (20:15)
--- NOTE | 2018-07-19 20:19 | DR.H&P ---
H&P - History & Physical for Day of: H&P Date: 07/19/18 - Chief Complaint Chief Complaint: COUGH, COLD, CONGESTION, SHORTNESS OF BREATH - History of Present Illness History of Present Illness: IS A 83 YEAR OLD PATIENT OF OURS. SHE IL ESENTED TO THE EMERGENCY ROOM VIA EMS WITH COMPLAINTS OF COUGH, COLD, CONGESTION, AND SHORTNESS OF BREATH THAT STARTED SEVERAL DAYS AGO. SHE REPORTS USE OF HOME OXYGEN WITHOUT IMPROVEMENT IN SYMPTOMS. ON EXAMINATION, SHE IS NOTED WITH SCATTERED RHONCHI AND EXPIRATORY WHEEZING TO AUSCULTATION. ON ARRIVAL, VITALS WERE 98.1-81-20-97%-184/74. LABS WERE OBTAINED. ABNORMAL LAB VALUES INCLUDE THE FOLLOWING: HGB 10.5, HCT 32.2, GLUCOSE 100, TOTAL BILI 0.10, CRP 30.90, ALBUMIN 3.1. INFLUENZA NEGATIVE. BLOOD CULTURES WERE OBTAINED. A CHEST XRAY WAS OBTAINED AND REVEALED: No radiographic evidence of acute cardiopulmonary disease or significant change is noted when compared to the prior examination. EKG REVEALED: SINUS RHYTHM WITH HR 79. SHE WAS GIVEN ROCEPHIN 1GM IV, DUONEB X 1, AND SOLUMEDROL 125MG IV X 1 DOSE. SHE WAS ADMITTED TO THE HOSPITAL FOR FURTHER EVALUATION AND TREATMENT OF COPD WITH BRONCHITIS, RESPIRATORY DISTRESS, AND PERSISTENT COUGH. SHE WAS STARTED ON ROCEPHIN 1GM IV DAILY, RESPIRATORY TREATMENTS, SOLU-MEDROL 40MG IV Q12H, AND HOME MEDICATIONS WERE RESUMED. WE PLAN TO FOLLOW UP WITH AM LABS AND CHEST XRAY AND 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. - Past Medical History Past Medical History: [place], Coronary Artery Disease, Hypertension, Dyslipidemia, Anemia, COPD, Asthma Additional Medical History: Breast and uterine cancer - Past Surgical History Surgical History: Angioplasty/Stents, Hysterectomy, Mastectomy - Family History Family Medical History: [place], Hypertension - Social History Does patient currently use any type of tobacco product: No Have you used tobacco products in the last 12 months: No Type of Tobacco Use: None Does any household member use tobacco: No Alcohol Use: None Drug Use: Prescription Drugs - Medications Home Medications: No Known Drug Allergies Allergy (Verified 07/19/18 14:54) CONTINUE taking the following medications famotidine [Pepcid] 40 mg PO BID 07/19/18 [History] ferrous fumarate [Hemocyte] 324 mg PO DAILY 07/19/18 [History] lisinopril 5 mg PO DAILY 07/19/18 [History] - Review of Systems Constitutional: No Symptoms Reported, Weakness Eyes: No Symptoms Reported ENT: See HPI, Nose Congestion Respiratory: See HPI, Cough, Shortness of Breath Cardiovascular: No Symptoms Reported Gastrointestinal: No Symptoms Reported Genitourinary: No Symptoms Reported Musculoskeletal: No Symptoms Reported Skin: No Symptoms Reported Neurological: Weakness - Physical Exam Vital Signs: Temperature 98.0 F Pulse Rate [Brachial] 83 Pulse Rate 79 Respiratory Rate 20 Blood Pressure [Left Calf] 126/56 Blood Pressure [Left Arm] 152/69 Blood Pressure [Right Calf] 168/77 Blood Pressure [Right Arm] 104/59 Blood Pressure 170/72 O2 Sat by Pulse Oximetry 94 Oriented: Normal Eyes: Normal Ear: Normal Nose: Normal Throat: Normal Respiratory: Rhonchi Throughout, Wheezes Throughout Cardiovascular: Normal : Normal Auscultation: Bowel Sounds: Normal Palpation: Normal Tenderness: Normal Skin: Normal Musculoskeletal: Normal Psychiatric: Normal Mood Description: Calm Affect: Normal Speech Pattern: Clear - Assessment/Plan (1) COPD (chronic obstructive pulmonary disease) with acute bronchitis Status: Acute Plan: ROCEPHIN 1GM IV DAILY, RESPIRATORY TREATMENTS, SUPPLEMENTAL OXYGEN, 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 (2) Persistent cough Status: Acute - Allergies Allergies/Adverse Reactions: Allergies Allergy/AdvReac Type Severity Reaction Status Date / Time No Known Drug Allergies Allergy Verified 07/19/18 14:54
[2018-07-19] MEDS: REQUIP PO SCH (20:39)
[2018-07-19] MEDS: NAMENDA TAB 10 MG PO SCH (20:39)
[2018-07-19] MEDS: PRAVACHOL PO SCH (20:39)
[2018-07-19] MEDS: PEPCID TAB 20 MG PO SCH (20:40)
[2018-07-19] MEDS: NEURONTIN CAP 300 MG PO SCH (20:40)
[2018-07-19] MEDS ORDERED: PULMICORT NEB TX 0.5 MG NEB SCH ×2 (21:00)
[2018-07-19] MEDS ORDERED: COLACE CAP 100 MG PO PRN (21:00)
[2018-07-19] MEDS ORDERED: DUONEB 0.5 MG/3 MG NEB SCH (21:00)
[2018-07-19 23:44] LABS: CKMB % 1.6 % (<4); CREATINE KINASE 69 Units/L (26-192); CREATINE KINASE MB 1.1 ng/mL (0-4.0); TROPONIN I < 0.02 ng/mL (0-1.5)
[2018-07-20] MEDS: DUONEB 0.5 MG/3 MG NEB SCH ×6 (01:12→20:00)
[2018-07-20 05:24] LABS: BASOPHILS % (AUTO) 0.2 % (0.2-1.0); HEMATOCRIT 30.3 % (36.0-47.0); HEMOGLOBIN 9.8 g/dL (12.0-16.0); LYMPHOCYTES # (AUTO) 0.6 X10^3/uL (1.3-2.9); LYMPHOCYTES % (AUTO) 9.2 % (21.0-51.0); MEAN CORPUSCULAR HEMOGLOBIN 28.2 pg (27.0-34.0); MEAN CORPUSCULAR HGB CONC 32.3 g/dL (33.0-35.0); MEAN CORPUSCULAR VOLUME 87.3 fL (80.0-100.0); MEAN PLATELET VOLUME 8.9 fL (7.4-11.0); MONOCYTES # (AUTO) 0.2 x10^3/uL (0.3-0.8); MONOCYTES % (AUTO) 2.8 % (0.0-13.0); NEUTROPHILS # (AUTO) 5.4 x10^3/uL (2.2-4.8); NEUTROPHILS % (AUTO) 87.8 % (42.0-75.0); PLATELET COUNT 362 X10^3/uL (150.0-450.0); RED BLOOD COUNT 3.47 X10^6/uL (3.5-5.4); RED CELL DISTRIBUTION WIDTH 14.9 % (11.6-16.5); WHITE BLOOD COUNT 6.1 X10^3/uL (3.6-10.0)
[2018-07-20 05:38] LABS: CREATINE KINASE 51 Units/L (26-192); TROPONIN I < 0.02 ng/mL (0-1.5)
[2018-07-20 05:40] LABS: ALANINE AMINOTRANSFERASE 24 Units/L (12-78); ALBUMIN 2.8 g/dL (3.4-5.0); ALKALINE PHOSPHATASE 91 Units/L (46-116); ASPARTATE AMINO TRANSFERASE 17 Units/L (15-37); BLOOD UREA NITROGEN 19 mg/dL (7-18); CALCIUM 8.7 mg/dL (8.5-10.1); CARBON DIOXIDE 25.3 mmol/L (21-32); CHLORIDE 105 mmol/L (98-107); COR CA(FOR HYPOALB) 9.7 mg/dL (8.5-10.1); COR NA(FOR HYPERGLY) 142 mmol/L (136-145); CREATININE 1.06 mg/dL (0.55-1.02); MAGNESIUM 2.3 mg/dL (1.7-2.9); SODIUM 140 mmol/L (136-145); TOTAL PROTEIN 7.1 g/dL (6.4-8.2); eGFR NON BLACK RACES 53 (>60)
[2018-07-20] MEDS: PULMICORT NEB TX 0.5 MG NEB SCH ×2 (08:07→20:00)
[2018-07-20] MEDS ORDERED: ROCEPHIN VIAL 1 GRAM IVP SCH (09:00)
[2018-07-20] MEDS: REQUIP PO SCH ×4 (09:08→21:00)
[2018-07-20] MEDS: PEPCID TAB 20 MG PO SCH ×2 (09:08→20:51)
[2018-07-20] MEDS: ZESTRIL TAB 5 MG PO SCH (09:09)
[2018-07-20] MEDS: SINGULAIR TAB 10 MG PO SCH (09:10)
[2018-07-20] MEDS: HEMOCYTE-PLUS PO SCH (09:10)
[2018-07-20] MEDS: PLAVIX PO SCH (09:10)
[2018-07-20] MEDS: VSL#3 PO SCH (09:11)
[2018-07-20] MEDS: NAMENDA TAB 10 MG PO SCH ×2 (09:11→20:51)
[2018-07-20] MEDS: ARICEPT TAB 10 MG PO SCH (09:11)
[2018-07-20] MEDS: EFFEXOR XR 75 MG CAP PO SCH (09:11)
[2018-07-20] MEDS: K-DUR TAB 20 MEQ PO SCH (09:11)
[2018-07-20] MEDS: LASIX PO SCH (09:11)
[2018-07-20] MEDS: SOLU-Medrol 40 MG VIAL IVP SCH ×2 (09:12→20:53)
[2018-07-20] MEDS: CORDARONE TAB 200 MG PO SCH (09:12)
[2018-07-20] MEDS: PATIENT'S HOME MEDICATION (Glucosamine-Chondroit-Vit C-Mn [Glucosamine Chondroitin Maxstr] PO SCH (09:13)
[2018-07-20] MEDS: FORTAZ or TAZICEF VIAL INJ IVP SCH ×2 (10:14→21:00)
[2018-07-20] MEDS: LOVENOX INJ 30 MG SYR SC SCH (10:14)
[2018-07-20] MEDS ORDERED: BUTT CREAM (COMPOUND) ONE (13:28)
[2018-07-20] MEDS ORDERED: BUTT CREAM (COMPOUND) TOP PRN (13:45)
[2018-07-20] MEDS: TUSSIONEX PENNKINETIC SUSP PO PRN (17:13)
[2018-07-20] MEDS: KLONOPIN TAB 1 MG PO SCH (20:51)
[2018-07-20] MEDS: NEURONTIN CAP 300 MG PO SCH (20:52)
[2018-07-20] MEDS: PRAVACHOL PO SCH (20:52)
[2018-07-20] MEDS: ROBITUSSIN DM PO PRN (22:31)
[2018-07-21] MEDS: DUONEB 0.5 MG/3 MG NEB SCH ×6 (00:19→20:29)
[2018-07-21] MEDS: ROBITUSSIN DM PO PRN (03:57)
[2018-07-21] MEDS: REQUIP PO SCH ×3 (05:03→21:00)
[2018-07-21] MEDS: TUSSIONEX PENNKINETIC SUSP PO PRN (05:03)
[2018-07-21 05:20] LABS: BASOPHILS % (AUTO) 0.5 % (0.2-1.0); EOSINOPHILS % (AUTO) 0.1 % (0.9-2.9); HEMATOCRIT 27.5 % (36.0-47.0); LYMPHOCYTES # (AUTO) 0.8 X10^3/uL (1.3-2.9); LYMPHOCYTES % (AUTO) 9.8 % (21.0-51.0); MEAN CORPUSCULAR HEMOGLOBIN 28.7 pg (27.0-34.0); MEAN CORPUSCULAR HGB CONC 32.9 g/dL (33.0-35.0); MEAN CORPUSCULAR VOLUME 87.1 fL (80.0-100.0); MEAN PLATELET VOLUME 8.7 fL (7.4-11.0); MONOCYTES # (AUTO) 0.3 x10^3/uL (0.3-0.8); MONOCYTES % (AUTO) 3.5 % (0.0-13.0); NEUTROPHILS % (AUTO) 86.1 % (42.0-75.0); PLATELET COUNT 331 X10^3/uL (150.0-450.0); RED BLOOD COUNT 3.15 X10^6/uL (3.5-5.4); WHITE BLOOD COUNT 8.1 X10^3/uL (3.6-10.0)
[2018-07-21 05:28] LABS: ALBUMIN 2.8 g/dL (3.4-5.0); CALCIUM 8.5 mg/dL (8.5-10.1); COR CA(FOR HYPOALB) 9.5 mg/dL (8.5-10.1); CREATININE 1.18 mg/dL (0.55-1.02); TOTAL PROTEIN 6.8 g/dL (6.4-8.2)
--- NOTE | 2018-07-21 07:29 | RAD ---
Examination: Chest, PA and lateral views History: Bronchitis Comparison 07/19/2018 Findings: Continued normal heart size. There is no evidence for acute pulmonary, or pleural lesion. Surgical clips left axilla. Impression: No interval change; no acute findings. Reported By:
[2018-07-21] MEDS: PULMICORT NEB TX 0.5 MG NEB SCH ×2 (08:32→20:29)
[2018-07-21] MEDS: EFFEXOR XR 75 MG CAP PO SCH (08:55)
[2018-07-21] MEDS: SOLU-Medrol 40 MG VIAL IVP SCH ×2 (08:55→20:52)
[2018-07-21] MEDS: NAMENDA TAB 10 MG PO SCH ×2 (08:56→20:51)
[2018-07-21] MEDS: LASIX PO SCH (08:56)
[2018-07-21] MEDS: ARICEPT TAB 10 MG PO SCH (08:56)
[2018-07-21] MEDS: PEPCID TAB 20 MG PO SCH (08:56)
[2018-07-21] MEDS: SINGULAIR TAB 10 MG PO SCH (08:56)
[2018-07-21] MEDS: HEMOCYTE-PLUS PO SCH (08:56)
[2018-07-21] MEDS: K-DUR TAB 20 MEQ PO SCH (08:57)
[2018-07-21] MEDS: ZESTRIL TAB 5 MG PO SCH (08:57)
[2018-07-21] MEDS: VSL#3 PO SCH (08:58)
[2018-07-21] MEDS ORDERED: LEVAQUIN PREMIX IV 500 MG 500 MG/100 ML BAG IV SCH (09:00)
[2018-07-21] MEDS: LOVENOX INJ 30 MG SYR SC SCH (09:01)
[2018-07-21] MEDS: PATIENT'S HOME MEDICATION (Glucosamine-Chondroit-Vit C-Mn [Glucosamine Chondroitin Maxstr] PO SCH (09:01)
[2018-07-21] MEDS: CORDARONE TAB 200 MG PO SCH (09:02)
[2018-07-21] MEDS: PLAVIX PO SCH (09:02)
[2018-07-21] MEDS ORDERED: NS 500 ML IV 500 ML IV ONE (09:15)
[2018-07-21] MEDS: FORTAZ or TAZICEF VIAL INJ IVP SCH ×3 (09:43→21:00)
[2018-07-21] MEDS ORDERED: BENADRYL CAP/TAB 25 MG PO ONE (11:36)
[2018-07-21] MEDS ORDERED: BENADRYL CAP 50 MG PO ONE (11:46)
[2018-07-21] MEDS ORDERED: TUSSIONEX PENNKINETIC SUSP PO SCH (12:00)
[2018-07-21] MEDS: ROBITUSSIN DM PO SCH ×3 (14:11→20:51)
[2018-07-21] MEDS: PRAVACHOL PO SCH (20:51)
[2018-07-21] MEDS: KLONOPIN TAB 1 MG PO SCH (20:51)
[2018-07-21] MEDS: NEURONTIN CAP 300 MG PO SCH (20:51)
[2018-07-21] MEDS: TUSSIONEX PENNKINETIC SUSP PO SCH (20:53)
[2018-07-21] MEDS: TESSALON PERLES PO SCH (21:20)
[2018-07-22] MEDS: DUONEB 0.5 MG/3 MG NEB SCH ×6 (00:38→20:06)
[2018-07-22 05:21] LABS: BASOPHILS % (AUTO) 0.1 % (0.2-1.0); HEMATOCRIT 25.8 % (36.0-47.0); HEMOGLOBIN 8.6 g/dL (12.0-16.0); LYMPHOCYTES # (AUTO) 0.8 X10^3/uL (1.3-2.9); LYMPHOCYTES % (AUTO) 10.2 % (21.0-51.0); MEAN CORPUSCULAR HEMOGLOBIN 28.8 pg (27.0-34.0); MEAN CORPUSCULAR HGB CONC 33.3 g/dL (33.0-35.0); MEAN CORPUSCULAR VOLUME 86.4 fL (80.0-100.0); MEAN PLATELET VOLUME 8.6 fL (7.4-11.0); MONOCYTES # (AUTO) 0.3 x10^3/uL (0.3-0.8); MONOCYTES % (AUTO) 4.2 % (0.0-13.0); NEUTROPHILS # (AUTO) 6.4 x10^3/uL (2.2-4.8); NEUTROPHILS % (AUTO) 85.5 % (42.0-75.0); PLATELET COUNT 330 X10^3/uL (150.0-450.0); RED BLOOD COUNT 2.99 X10^6/uL (3.5-5.4); RED CELL DISTRIBUTION WIDTH 15.2 % (11.6-16.5); WHITE BLOOD COUNT 7.4 X10^3/uL (3.6-10.0)
[2018-07-22] MEDS: TESSALON PERLES PO SCH ×3 (05:24→21:12)
[2018-07-22] MEDS: REQUIP PO SCH ×3 (05:24→21:12)
[2018-07-22 05:37] LABS: ALANINE AMINOTRANSFERASE 22 Units/L (12-78); ALBUMIN 2.8 g/dL (3.4-5.0); ALKALINE PHOSPHATASE 73 Units/L (46-116); ASPARTATE AMINO TRANSFERASE 17 Units/L (15-37); BLOOD UREA NITROGEN 29 mg/dL (7-18); CALCIUM 8.3 mg/dL (8.5-10.1); CARBON DIOXIDE 26.3 mmol/L (21-32); CHLORIDE 105 mmol/L (98-107); COR CA(FOR HYPOALB) 9.3 mg/dL (8.5-10.1); COR NA(FOR HYPERGLY) 141 mmol/L (136-145); CREATININE 1.07 mg/dL (0.55-1.02); SODIUM 140 mmol/L (136-145); TOTAL PROTEIN 6.5 g/dL (6.4-8.2); eGFR NON BLACK RACES 52 (>60)
[2018-07-22] MEDS: ARICEPT TAB 10 MG PO SCH (08:45)
[2018-07-22] MEDS: PULMICORT NEB TX 0.5 MG NEB SCH ×2 (08:45→20:06)
[2018-07-22] MEDS: ROBITUSSIN DM PO SCH ×4 (08:46→20:39)
[2018-07-22] MEDS: PEPCID TAB 20 MG PO SCH (08:46)
[2018-07-22] MEDS: EFFEXOR XR 75 MG CAP PO SCH (08:47)
[2018-07-22] MEDS: HEMOCYTE-PLUS PO SCH (08:47)
[2018-07-22] MEDS: SINGULAIR TAB 10 MG PO SCH (08:49)
[2018-07-22] MEDS: CORDARONE TAB 200 MG PO SCH (08:49)
[2018-07-22] MEDS: PLAVIX PO SCH (08:49)
[2018-07-22] MEDS: SOLU-Medrol 40 MG VIAL IVP SCH ×2 (08:49→20:40)
[2018-07-22] MEDS: VSL#3 PO SCH (08:50)
[2018-07-22] MEDS: TUSSIONEX PENNKINETIC SUSP PO SCH ×2 (08:50→20:40)
[2018-07-22] MEDS: NAMENDA TAB 10 MG PO SCH ×2 (08:50→20:40)
[2018-07-22] MEDS: ZESTRIL TAB 5 MG PO SCH (08:50)
[2018-07-22] MEDS: LOVENOX INJ 30 MG SYR SC SCH (08:51)
[2018-07-22] MEDS: PATIENT'S HOME MEDICATION (Glucosamine-Chondroit-Vit C-Mn [Glucosamine Chondroitin Maxstr] PO SCH (08:51)
[2018-07-22] MEDS: LASIX PO SCH (08:51)
[2018-07-22] MEDS: K-DUR TAB 20 MEQ PO SCH (08:53)
[2018-07-22] MEDS: FORTAZ or TAZICEF VIAL INJ IVP SCH ×2 (09:05→21:14)
[2018-07-22] MEDS: KLONOPIN TAB 1 MG PO SCH (20:39)
[2018-07-22] MEDS: NEURONTIN CAP 300 MG PO SCH (20:39)
[2018-07-22] MEDS: PRAVACHOL PO SCH (20:39)
--- NOTE | 2018-07-22 21:56 | PCM.PROG ---
Progress Note - Progress Note for Day of Date of Exam: 07/20/18 - Subjective Subjective: WAS ADMITTED FOR COPD WITH ACUTE BRONCHITIS. TODAY, SHE IS ALERT AND ORIENTED, LYING IN BED ON MORNING ROUNDS. SHE CONTINUES WITH SHORTNESS OF BREATH AND A PERSISTENT COUGH. SHE ALSO COMPLAINS OF RESTLESS LEGS. ON EXAMINATION, HEART IS REGULAR IN RATE AND RHYTHM. LUNGS ARE NOTED WITH HIGH PITCHED WHEEZING TO AUSCULTATION. ABDOMEN IS ROUND, SOFT, AND NON-TENDER WITH NORMAL BOWEL SOUNDS NOTED IN ALL QUADRANTS. HER VITALS TODAY ARE 98.8-89-20-97%NC-154/58. LABS WERE OBTAINED. ABNORMAL LAB VALUES INCLUDE THE FOLLOWING: RBC 3.47, HGB 9.8, HCT 30.3, BUN 19, CREATININE 1.06, GLUCOSE 191, TOTAL BILI 0.10, ALBUMIN 2.8. CARDIAC ENZYMES HAVE BEEN WITHIN NORMAL LIMITS. SHE IS CURRENTLY RECEIVING IV ANTIBIOTICS AND RESPIRATORY TX. TODAY, WE JHONNY START TUSSIONEX, LOVENOX 30MG SC DAILY FOR DVT PROPHYLAXIS, INCREASE REQUIP TO TID, AND KLONOPIN 1MG PO HS. WE WILL DISCONTINUE THE ROCEPHIN AND START FORTAZ AND LEVAQUIN IV. OTHERWISE, WE WILL FOLLOW UP WITH AM LABS AND CHEST XRAY AND 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. - Past Medical Family Social History Past Med/Fam/Surg Hx: No changes since H&P Allergies: Allergies levofloxacin [From Levaquin] Allergy (Verified 07/22/18 18:54) - Review of Systems ROS: No change since H&P - Vital Signs and I&O's Vital Signs: Temperature 98.3 F Pulse Rate [Brachial] 99 Pulse Rate 87 Respiratory Rate 22 Blood Pressure [Left Calf] 126/56 Blood Pressure [Left Arm] 159/70 Blood Pressure [Right Calf] 168/77 Blood Pressure [Right Arm] 87/50 Blood Pressure 170/72 O2 Sat by Pulse Oximetry 94 Intake and Output: Intake & Output 07/20/18 07/21/18 07/22/18 07/23/18 11:59 11:59 11:59 11:59 Intake Total 950 / 950 1280 / 1280 1700 / 1700 460 / 460 Balance 950 / 950 1280 / 1280 1700 / 1700 460 / 460 - Physical Exam Oriented: Normal Eyes: Normal Ear: Normal Nose: Normal Throat: Normal Respiratory: Right, Left, Wheezes Cardiovascular: Normal : Normal Auscultation: Bowel Sounds: Normal Palpation: Normal Tenderness: Normal Skin: Normal Musculoskeletal: Normal Psychiatric: Normal Mood Description: Calm Affect: Normal Speech Pattern: Clear, Appropriate - Laboratory and Diagnostics Result Diagrams: 07/22/18 04:25 07/22/18 04:25 Labs: 07/19/18 15:20 Blood Blood Culture - Preliminary 07/19/18 15:18 Blood Blood Culture - Preliminary Laboratory WBC 7.4 X10^3/uL (3.6-10.0) 07/22/18 04:25 RBC 2.99 X10^6/uL (3.5-5.4) L 07/22/18 04:25 Hgb 8.6 g/dL (12.0-16.0) L 07/22/18 04:25 Hct 25.8 % (36.0-47.0) L 07/22/18 04:25 MCV 86.4 fL (80.0-100.0) 07/22/18 04:25 MCH 28.8 pg (27.0-34.0) 07/22/18 04:25 MCHC 33.3 g/dL (33.0-35.0) 07/22/18 04:25 RDW 15.2 % (11.6-16.5) 07/22/18 04:25 Plt Count 330 X10^3/uL (150.0-450.0) 07/22/18 04:25 MPV 8.6 fL (7.4-11.0) 07/22/18 04:25 Neut % (Auto) 85.5 % (42.0-75.0) H 07/22/18 04:25 Lymph % (Auto) 10.2 % (21.0-51.0) L 07/22/18 04:25 [place] % (Auto) 4.2 % (0.0-13.0) 07/22/18 04:25 Eos % (Auto) 0.0 % (0.9-2.9) L 07/22/18 04:25 Baso % (Auto) 0.1 % (0.2-1.0) L 07/22/18 04:25 Neut # (Auto) 6.4 x10^3/uL (2.2-4.8) H 07/22/18 04:25 Lymph # (Auto) 0.8 X10^3/uL (1.3-2.9) L 07/22/18 04:25 [place] # (Auto) 0.3 x10^3/uL (0.3-0.8) 07/22/18 04:25 Eos # (Auto) 0.0 x10^3/uL (0.0-0.2) 07/22/18 04:25 Baso # (Auto) 0.0 X10^3/uL (0.0-0.1) 07/22/18 04:25 Absolute Nucleated RBC 0.0 /100WBC 07/22/18 04:25 Sodium 140 mmol/L (136-145) 07/22/18 04:25 Corrected Sodium 141 mmol/L (136-145) 07/22/18 04:25 Potassium 4.6 mmol/L (3.5-5.1) 07/22/18 04:25 Chloride 105 mmol/L (98-107) 07/22/18 04:25 Carbon Dioxide 26.3 mmol/L (21-32) 07/22/18 04:25 BUN 29 mg/dL (7-18) H 07/22/18 04:25 Creatinine 1.07 mg/dL (0.55-1.02) H 07/22/18 04:25 Est GFR (MDRD) Af Amer > 60 (>60) 07/22/18 04:25 Est GFR (MDRD) Non-Af 52 (>60) L 07/22/18 04:25 Glucose 132 mg/dL (65-99) H 07/22/18 04:25 Lactic Acid 1.4 mmol/L (0.4-2.0) 07/19/18 15:18 Calcium 8.3 mg/dL (8.5-10.1) L 07/22/18 04:25 Corrected Calcium 9.3 mg/dL (8.5-10.1) 07/22/18 04:25 Magnesium 2.3 mg/dL (1.7-2.9) 07/20/18 04:16 Total Bilirubin 0.10 mg/dL (0.2-1.0) L 07/22/18 04:25 AST 17 Units/L (15-37) 07/22/18 04:25 ALT 22 Units/L (12-78) 07/22/18 04:25 Alkaline Phosphatase 73 Units/L (46-116) 07/22/18 04:25 Creatine Kinase 51 Units/L (26-192) 07/20/18 04:16 CK-MB (CK-2) 1.0 ng/mL (0-4.0) 07/20/18 04:16 CK/CKMB % Calc 2.0 % (<4) 07/20/18 04:16 Troponin I < 0.02 ng/mL (0-1.5) 07/20/18 04:16 C-Reactive Protein 30.90 mg/L (0-3.0) H 07/19/18 15:18 Total Protein 6.5 g/dL (6.4-8.2) 07/22/18 04:25 Albumin 2.8 g/dL (3.4-5.0) L 07/22/18 04:25 Globulin 3.7 g/dL (2.5-4.5) 07/22/18 04:25 Albumin/Globulin Ratio 0.8 Ratio (1.1-2.1) L 07/22/18 04:25 Specimen Type Clean catch urine 07/19/18 19:45 Urine Color Yellow (YELLOW) 07/19/18 19:45 Urine Appearance Clear (CLEAR) 07/19/18 19:45 Urine pH 5.0 (5.0 - 8.0) 07/19/18 19:45 Ur Specific [place] 1.020 (1.000-1.030) 07/19/18 19:45 Urine Protein 3+ (NEGATIVE) 07/19/18 19:45 Urine Glucose (UA) Negative (NEGATIVE) 07/19/18 19:45 Urine Ketones Negative (NEGATIVE) 07/19/18 19:45 Urine Occult Blood 1+ (NEGATIVE) 07/19/18 19:45 Urine Nitrite Negative (NEGATIVE) 07/19/18 19:45 Urine Bilirubin Negative (NEGATIVE) 07/19/18 19:45 Urine Urobilinogen Normal (NORMAL) 07/19/18 19:45 Ur Leukocyte Esterase Negative (NEGATIVE) 07/19/18 19:45 Urine RBC 0-2 /HPF (NONE SEEN) 07/19/18 19:45 Urine WBC None seen /HPF (NONE SEEN) 07/19/18 19:45 Ur Squamous Epith Cells Rare /HPF (NEGATIVE) 07/19/18 19:45 Urine Bacteria Negative /HPF (NEGATIVE) 07/19/18 19:45 Ur Culture Indicated? No/not indicated 07/19/18 19:45 Influenza Type A (PCR) Negative (NEGATIVE) 07/19/18 16:11 Influenza Type B (PCR) Negative (NEGATIVE) 07/19/18 16:11 - Plan (1) COPD (chronic obstructive pulmonary disease) with acute bronchitis Status: Acute Plan: FORTAZ IV, LEVAQUIN IV, TUSSIONEX, RESPIRATORY TREATMENTS, SUPPLEMENTAL OXYGEN, 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 (2) Persistent cough Status: Acute (3) Restless leg syndrome Status: Acute Plan: REQUIP 1MG PO TID, KLONOPIN 1MG PO HS, 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
[2018-07-23] MEDS: DUONEB 0.5 MG/3 MG NEB SCH ×3 (00:38→08:53)
[2018-07-23] MEDS: REQUIP PO SCH (05:07)
[2018-07-23] MEDS: TESSALON PERLES PO SCH (05:07)
[2018-07-23 06:14] LABS: BASOPHILS % (AUTO) 0.1 % (0.2-1.0); HEMATOCRIT 29.7 % (36.0-47.0); HEMOGLOBIN 9.8 g/dL (12.0-16.0); MEAN CORPUSCULAR HEMOGLOBIN 28.5 pg (27.0-34.0); MEAN CORPUSCULAR HGB CONC 32.8 g/dL (33.0-35.0); MEAN CORPUSCULAR VOLUME 86.9 fL (80.0-100.0); MEAN PLATELET VOLUME 8.6 fL (7.4-11.0); MONOCYTES # (AUTO) 0.4 x10^3/uL (0.3-0.8); MONOCYTES % (AUTO) 4.2 % (0.0-13.0); NEUTROPHILS # (AUTO) 8.4 x10^3/uL (2.2-4.8); NEUTROPHILS % (AUTO) 85.7 % (42.0-75.0); PLATELET COUNT 370 X10^3/uL (150.0-450.0); RED BLOOD COUNT 3.42 X10^6/uL (3.5-5.4); RED CELL DISTRIBUTION WIDTH 15.4 % (11.6-16.5); WHITE BLOOD COUNT 9.8 X10^3/uL (3.6-10.0)
[2018-07-23 06:28] LABS: ALANINE AMINOTRANSFERASE 24 Units/L (12-78); ALBUMIN 2.9 g/dL (3.4-5.0); ALKALINE PHOSPHATASE 75 Units/L (46-116); ASPARTATE AMINO TRANSFERASE 16 Units/L (15-37); BLOOD UREA NITROGEN 36 mg/dL (7-18); CALCIUM 8.5 mg/dL (8.5-10.1); CARBON DIOXIDE 29.9 mmol/L (21-32); CHLORIDE 104 mmol/L (98-107); COR CA(FOR HYPOALB) 9.4 mg/dL (8.5-10.1); COR NA(FOR HYPERGLY) 141 mmol/L (136-145); CREATININE 1.11 mg/dL (0.55-1.02); SODIUM 140 mmol/L (136-145); TOTAL PROTEIN 6.8 g/dL (6.4-8.2); eGFR NON BLACK RACES 50 (>60)
[2018-07-23] MEDS: PULMICORT NEB TX 0.5 MG NEB SCH (08:54)
[2018-07-23] MEDS: TUSSIONEX PENNKINETIC SUSP PO SCH (09:01)
[2018-07-23] MEDS: LOVENOX INJ 30 MG SYR SC SCH (09:01)
[2018-07-23] MEDS: SINGULAIR TAB 10 MG PO SCH (09:02)
[2018-07-23] MEDS: PEPCID TAB 20 MG PO SCH (09:02)
[2018-07-23] MEDS: PLAVIX PO SCH (09:02)
[2018-07-23] MEDS: VSL#3 PO SCH (09:03)
[2018-07-23] MEDS: EFFEXOR XR 75 MG CAP PO SCH (09:03)
[2018-07-23] MEDS: ARICEPT TAB 10 MG PO SCH (09:03)
[2018-07-23] MEDS: ZESTRIL TAB 5 MG PO SCH (09:03)
[2018-07-23] MEDS: HEMOCYTE-PLUS PO SCH (09:03)
[2018-07-23] MEDS: CORDARONE TAB 200 MG PO SCH (09:03)
[2018-07-23] MEDS: ROBITUSSIN DM PO SCH (09:04)
[2018-07-23] MEDS: FORTAZ or TAZICEF VIAL INJ IVP SCH (09:04)
[2018-07-23] MEDS: K-DUR TAB 20 MEQ PO SCH (09:14)
[2018-07-23] MEDS: NAMENDA TAB 10 MG PO SCH (09:15)
[2018-07-23 11:14] VITALS: BP 86/52
== END 2018-07-23 11:10 | disposition hospice, home (50) | DRG 192 ==
LOC: MED/SURG 14:45 → ER 14:45 → MED/SURG 18:35
PROVIDERS: ADMIT Internal Medicine; ATTEND Internal Medicine
DX: R79.82 Elevated C-reactive protein (CRP); R94.4 Abnormal results of kidney function studies; J20.8 Acute bronchitis due to other specified organisms; Z85.3 Personal history of malignant neoplasm of breast; R26.89 Other abnormalities of gait and mobility; R05 Cough; I10 Essential (primary) hypertension; Z85.42 Personal history of malignant neoplasm of other parts of uterus; Z99.81 Dependence on supplemental oxygen; E78.2 Mixed hyperlipidemia; R06.02 Shortness of breath; G25.81 Restless legs syndrome; J44.9 Chronic obstructive pulmonary disease, unspecified; R06.03 Acute respiratory distress; I25.10 Atherosclerotic heart disease of native coronary artery without angina pectoris
CPT/HCPCS: 36415; 71010; 71020; 71045; 71046; 80053; 81001; 82550; 82553; 83605; 83735; 84484; 85025; 86140; 87040; 87502; 93005; 94640; 94760; 96365; 96374; 96375; 97116; 97162; 97166; 97530; 99282; 99283; 99284; A4222; G0378; J0696; J0713; J1650; J1956; J2920; J2930; J7040; J7620; J7626

== ENCOUNTER 2018-08-07 06:09 | Inpatient (IN) ==
[2018-08-07] MEDS ORDERED: TYLENOL 500 MG TAB EXTRA STRENGTH PO ONE ×2 (06:14→06:17)
[2018-08-07 06:22] VITALS: BMI 23.4
--- NOTE | 2018-08-07 06:41 | RAD ---
HISTORY: Fever Study: Chest AP portable Comparison: 07/21/2018 Findings: The heart is within normal limits in size. The maría are normal. The lungs are free of acute alveolar infiltrates. No pleural effusions are identified. The bony thorax is unremarkable with the exception of degenerative joint disease in the right glenohumeral joint and likely chronic rotator cuff disease on the right. IMPRESSION: Lungs clear Reported By:
[2018-08-07 07:00] LABS: BILIRUBIN,URINE NEGATIVE (NEGATIVE); BLOOD/HEMOGLOBIN,URINE NEGATIVE (NEGATIVE); GLUCOSE, URINE NEGATIVE (NEGATIVE); KETONES,URINE NEGATIVE (NEGATIVE); LEUKOCYTE ESTERASE ,URINE NEGATIVE (NEGATIVE); NITRITES,URINE NEGATIVE (NEGATIVE); PROTEIN,URINE 2+ (NEGATIVE); UROBILINOGEN,URINE NORMAL (NORMAL)
[2018-08-07 07:01] LABS: BASOPHILS # (AUTO) 0.1 X10^3/uL (0.0-0.1); BASOPHILS % (AUTO) 1.5 % (0.2-1.0); EOSINOPHILS # (AUTO) 0.5 x10^3/uL (0.0-0.2); EOSINOPHILS % (AUTO) 7.8 % (0.9-2.9); HEMATOCRIT 29.8 % (36.0-47.0); LYMPHOCYTES # (AUTO) 0.9 X10^3/uL (1.3-2.9); LYMPHOCYTES % (AUTO) 14.5 % (21.0-51.0); MEAN CORPUSCULAR HEMOGLOBIN 28.9 pg (27.0-34.0); MEAN CORPUSCULAR HGB CONC 33.7 g/dL (33.0-35.0); MEAN CORPUSCULAR VOLUME 85.8 fL (80.0-100.0); MEAN PLATELET VOLUME 8.8 fL (7.4-11.0); MONOCYTES # (AUTO) 0.7 x10^3/uL (0.3-0.8); MONOCYTES % (AUTO) 11.7 % (0.0-13.0); NEUTROPHILS # (AUTO) 3.8 x10^3/uL (2.2-4.8); NEUTROPHILS % (AUTO) 64.5 % (42.0-75.0); PLATELET COUNT 306 X10^3/uL (150.0-450.0); RED BLOOD COUNT 3.47 X10^6/uL (3.5-5.4); RED CELL DISTRIBUTION WIDTH 15.4 % (11.6-16.5); WHITE BLOOD COUNT 5.9 X10^3/uL (3.6-10.0)
[2018-08-07] MEDS ORDERED: NS 1000 ML 1,000 ML ONE (07:05)
[2018-08-07 07:08] LABS: APPEARANCE,URINE CLEAR (CLEAR); COLOR,URINE YELLOW (YELLOW)
[2018-08-07 07:09] LABS: BACTERIA,URINE NEGATIVE /HPF (NEGATIVE); MUCUS,URINE FEW /HPF (NEGATIVE); RBC,URINE NONE SEEN /HPF (NONE SEEN); SQUAMOUS EPITHELIAL CELL,UR NEGATIVE /HPF (NEGATIVE)
[2018-08-07] MEDS ORDERED: NS 1000 ML 1,000 ML IV ONE ×3 (07:10→13:00)
[2018-08-07 07:17] LABS: BLOOD UREA NITROGEN 22 mg/dL (7-18); CALCIUM 8.7 mg/dL (8.5-10.1); CARBON DIOXIDE 25.2 mmol/L (21-32); CHLORIDE 99 mmol/L (98-107); CREATININE 1.37 mg/dL (0.55-1.02); SODIUM 134 mmol/L (136-145); TROPONIN I < 0.02 ng/mL (0-1.5); eGFR NON BLACK RACES 39 (>60)
[2018-08-07 07:21] LABS: ALANINE AMINOTRANSFERASE 23 Units/L (12-78); ALBUMIN 3.1 g/dL (3.4-5.0); ALKALINE PHOSPHATASE 65 Units/L (46-116); ASPARTATE AMINO TRANSFERASE 17 Units/L (15-37); CKMB % 3.9 % (<4); COR CA(FOR HYPOALB) 9.4 mg/dL (8.5-10.1); CREATINE KINASE 26 Units/L (26-192); CREATINE KINASE MB < 1.0 ng/mL (0-4.0); TOTAL PROTEIN 6.7 g/dL (6.4-8.2)
--- NOTE | 2018-08-07 07:42 | DR.URIAD ---
HPI Time Seen Time Seen by Provider: 08/07/18 06:19 HPI Comment HPI Comment: PATIENT HERE WITH EMS WITH BELOW COMPLAINTS. IN HOSPITAL RECENTLY FOR RESPIRATORY INFECTION. SENT HOME WITH SURINDER. DIARRHEA NOW FELT TO BE FROM MEDICATION. HER PRIVATE AREA IS RED AND INFLAME. PATIENT ANSWERING QUESTIONS IN ED AND IS ORIENTED. Complaint Chief Complaint Doctors Comments: FEVER. LOW OXYGEN SATURATION, HYPOTENSION AND DIARRHEA. Reviewed Nurses Notes Reviewed: Yes Source History Provided: Patient and EMS Mode of Arrival Mode of Arrival: EMS Context Recent Treated Infections: Pneumonia and URI History of Respiratory: Bronchiolitis and Bronchitis Quality Quality of Cough: Productive and Yellow Rhinorrhea: None Shortness of Breath: Moderate Associated Signs and Symptoms Other Signs and Symptoms: Abdominal Pain, Chills, Cough, Decreased Oral Intake, Decreased Urination, Diarrhea, Fever, Myalgias and Shortness of Breath PMH PMH Past Medical History: Anemia, Asthma, COPD, Coronary Artery Disease, Dyslipide jaden, Hypertension and [place] Past Surgical History: Yes Family History Family Medical History: [place] and Hypertension Social History Do you use any recreational Drugs:: No ROS Review of Systems Constitutional: Chills, Fever, Malaise, Weakness and Fatigue Eyes: No Symptoms Reported ENTM: Nose Congestion Respiratoy: Moist Cough, Short of Breath and Wheezing Cardiovascular: No Symptoms Reported Gastrointestinal/Abdominal: Abdominal Pain and Diarrhea Genitourinary: No Symptoms Reported and Other (URINARY INCONTINENCE.) Neurological: Headache, Weakness and Dizziness Musculoskeletal: Muscle Pain Integumentary: Rash (GENITAL AND PERIANAL AREAS ARE RED AND INFLAME.) Hematologic/Lymphatic: Easy Bruising Endocrine: Decreased Appetite Psychiatric: No Symptoms Reported All Other Systems: Reviewed and Negative PE Vital Signs Vitals: Temperature 100.5 F Pulse Rate [Apical] 74 Pulse Rate 78 Respiratory Rate 22 Blood Pressure [Left Calf] 126/56 Blood Pressure [Left Arm] 159/70 Blood Pressure [Right Calf] 168/77 Blood Pressure [Right Arm] 75/44 Blood Pressure 153/68 O2 Sat by Pulse Oximetry 94 General Limitations: No Limitations General Appearance: Alert and In Distress Head Head Exam: Normal Inspection Eyes Eye exam: Normal Appearance, PERRL and EOMI; negative Scleral Icterus and Conjunctival Injection ENT ENT Exam: Normal External Ear Exam and Mucous Membranes Dry External Ear Exam: Normal External Inspection TM/Canal Exam: Bilateral: Normal Nose Exam: Normal Nose Exam Mouth Exam: Normal Inspection Throat Exam: Normal Inspection Neck Neck Exam: Trachea Midline; negative Tenderness, Meningismus and Lymphadenopathy Chest Chest Inspection: Symmetric Chest Wall Rise Respiratory Respiratory Exam: Normal Lung Sounds Bilat Respiratory Exam: Bilateral: Rhonchi and Lower: Rhonchi Cardiovascular Cardiovascular Exam: Regular Rate and Normal Rhythm Abdominal Exam Abdominal Exam: Normal Bowel Sounds, Soft and Tenderness Abdominal Tenderness: Diffuse and Moderate Extremeties Extremities Exam: Normal Inspection Back Back Exam: Normal Inspection Neurologic Neurological Exam: Alert and Oriented X3; negative Motor Sensory Deficit Psychiatric Psychiatric Exam: Normal Affect and Anxious Skin Skin Exam: Dry, Rash and Erythema MDM Additional Information Additional Information Obtained From: Old Records Differential Diagnosis Differential Diagnosis: Influenza A, Influenza B and Pneumonia (SEPSIS, UTI, DIARRHEA, DEHYDRATION, HYPOTENSION, RESPIRATORY INSUFFICIECY.) COURSE Treatment Treatment: SEE ORDERS. BP LOW. O2 DESATURATION NOTED AT HOME. O2 SUPPLEMENT IN ED. IF NS BOLUS. BP SLOWLY IMPROVING. NOT YET NORMAL. Education/Counseling Education/Counseling: Patient Educated On: Diagnosis ROR Labs Reviewed Laboratory Results Reviewed?: Yes Result Diagrams: 08/07/18 06:40 08/07/18 06:40 Laboratory: 08/07/18 16:45 Stool - Final WBC 5.9 X10^3/uL (3.6-10.0) 08/07/18 06:40 RBC 3.47 X10^6/uL (3.5-5.4) L 08/07/18 06:40 Hgb 10.0 g/dL (12.0-16.0) L 08/07/18 06:40 Hct 29.8 % (36.0-47.0) L 08/07/18 06:40 MCV 85.8 fL (80.0-100.0) 08/07/18 06:40 MCH 28.9 pg (27.0-34.0) 08/07/18 06:40 MCHC 33.7 g/dL (33.0-35.0) 08/07/18 06:40 RDW 15.4 % (11.6-16.5) 08/07/18 06:40 Plt Count 306 X10^3/uL (150.0-450.0) 08/07/18 06:40 MPV 8.8 fL (7.4-11.0) 08/07/18 06:40 Neut % (Auto) 64.5 % (42.0-75.0) 08/07/18 06:40 Lymph % (Auto) 14.5 % (21.0-51.0) L 08/07/18 06:40 [place] % (Auto) 11.7 % (0.0-13.0) 08/07/18 06:40 Eos % (Auto) 7.8 % (0.9-2.9) H 08/07/18 06:40 Baso % (Auto) 1.5 % (0.2-1.0) H 08/07/18 06:40 Neut # (Auto) 3.8 x10^3/uL (2.2-4.8) 08/07/18 06:40 Lymph # (Auto) 0.9 X10^3/uL (1.3-2.9) L 08/07/18 06:40 [place] # (Auto) 0.7 x10^3/uL (0.3-0.8) 08/07/18 06:40 Eos # (Auto) 0.5 x10^3/uL (0.0-0.2) H 08/07/18 06:40 Baso # (Auto) 0.1 X10^3/uL (0.0-0.1) 08/07/18 06:40 Absolute Nucleated RBC 0.0 /100WBC 08/07/18 06:40 INR Target Range - 08/07/18 06:40 INR 0.92 (0.8-1.3) 08/07/18 06:40 APTT 27.0 SECONDS (22.9-36.5) 08/07/18 06:40 PTT Comment - 08/07/18 06:40 Sodium 134 mmol/L (136-145) L 08/07/18 06:40 Corrected Sodium TNP 08/07/18 06:40 Potassium 4.8 mmol/L (3.5-5.1) 08/07/18 06:40 Chloride 99 mmol/L (98-107) 08/07/18 06:40 Carbon Dioxide 25.2 mmol/L (21-32) 08/07/18 06:40 BUN 22 mg/dL (7-18) H 08/07/18 06:40 Creatinine 1.37 mg/dL (0.55-1.02) H 08/07/18 06:40 Est GFR (MDRD) Af Amer 48 (>60) L 08/07/18 06:40 Est GFR (MDRD) Non-Af 39 (>60) L 08/07/18 06:40 Glucose 105 mg/dL (65-99) H 08/07/18 06:40 Lactic Acid 1.3 mmol/L (0.4-2.0) 08/07/18 07:30 Calcium 8.7 mg/dL (8.5-10.1) 08/07/18 06:40 Corrected Calcium 9.4 mg/dL (8.5-10.1) 08/07/18 06:40 Magnesium 2.3 mg/dL (1.7-2.9) 08/07/18 06:40 Total Bilirubin 0.10 mg/dL (0.2-1.0) L 08/07/18 06:40 AST 17 Units/L (15-37) 08/07/18 06:40 ALT 23 Units/L (12-78) 08/07/18 06:40 Alkaline Phosphatase 65 Units/L (46-116) 08/07/18 06:40 Creatine Kinase 35 Units/L (26-192) 08/07/18 14:36 CK-MB (CK-2) < 1.0 ng/mL (0-4.0) 08/07/18 14:36 CK/CKMB % Calc 2.9 % (<4) 08/07/18 14:36 Troponin I < 0.02 ng/mL (0-1.5) 08/07/18 14:36 C-Reactive Protein 1.80 mg/L (0-3.0) 08/07/18 06:40 Total Protein 6.7 g/dL (6.4-8.2) 08/07/18 06:40 Albumin 3.1 g/dL (3.4-5.0) L 08/07/18 06:40 Globulin 3.6 g/dL (2.5-4.5) 08/07/18 06:40 Albumin/Globulin Ratio 0.9 Ratio (1.1-2.1) L 08/07/18 06:40 Specimen Type Catherized urine 08/07/18 13:45 Urine Color Yellow (YELLOW) 08/07/18 13:45 Urine Appearance Clear (CLEAR) 08/07/18 13:45 Urine pH 5.0 (5.0 - 8.0) 08/07/18 13:45 Ur Specific [place] 1.010 (1.000-1.030) 08/07/18 13:45 Urine Protein 1+ (NEGATIVE) 08/07/18 13:45 Urine Glucose (UA) Negative (NEGATIVE) 08/07/18 13:45 Urine Ketones Negative (NEGATIVE) 08/07/18 13:45 Urine Occult Blood Negative (NEGATIVE) 08/07/18 13:45 Urine Nitrite Negative (NEGATIVE) 08/07/18 13:45 Urine Bilirubin Negative (NEGATIVE) 08/07/18 13:45 Urine Urobilinogen Normal (NORMAL) 08/07/18 13:45 Ur Leukocyte Esterase Negative (NEGATIVE) 08/07/18 13:45 Urine RBC None seen /HPF (NONE SEEN) 08/07/18 13:45 Urine WBC None seen /HPF (NONE SEEN) 08/07/18 13:45 Ur Squamous Epith Cells Negative /HPF (NEGATIVE) 08/07/18 13:45 Urine Bacteria Negative /HPF (NEGATIVE) 08/07/18 13:45 Urine Mucus Few /HPF (NEGATIVE) 08/07/18 13:45 Urine Yeast Rare /HPF (NEGATIVE) 08/07/18 13:45 Ur Culture Indicated? No/not indicated 08/07/18 13:45 Stool Description 6g,black,unformed 08/07/18 16:45 Stl Occult Blood (IFOB) Positive (NEGATIVE) A 08/07/18 16:45 Stool for White Cells Positive (NEGATIVE) A 08/07/18 16:45 Stl C. diff Tox B Gene Negative (NEGATIVE) 08/07/18 16:45 Stl C. diff [id number] Negative (NEGATIVE) 08/07/18 16:45 Influenza Type A (PCR) Negative (NEGATIVE) 08/07/18 07:39 Influenza Type B (PCR) Negative (NEGATIVE) 08/07/18 07:39 XRAY XRAY Interpreted by: Radiologist XRAY Findings: report noted and discuss with patient. EKG Rate: 84 [place]: Normal Rhythm: NSR Block: None Hypertrophy: None ST: Nonsp Diagnosis Discharge Problem: Hypotension
[2018-08-07] MEDS ORDERED: ZOSYN VIAL 3.375 GRAMS IV ONE (08:04)
[2018-08-07] MEDS ORDERED: NS 100 ML IV + SPIKE MINIBAG* 100 ML IV ONE (08:04)
[2018-08-07] MEDS: ZOSYN VIAL 3.375 GRAMS 3.375 G in NS 100 ML IV + SPIKE MINIBAG* 100 ML IV SCH ×3 (08:17→21:03)
[2018-08-07] MEDS ORDERED: BUTT CREAM (COMPOUND) ONE (08:45)
[2018-08-07] MEDS ORDERED: BUTT CREAM (COMPOUND) TOP PRN ×2 (08:56→08:59)
[2018-08-07] MEDS ORDERED: DOPAMINE IV PREMIX 400 MG/250 ML 400 MG/250 ML BAG IV PRN (09:02)
[2018-08-07] MEDS ORDERED: FORTAZ or TAZICEF VIAL INJ IVP SCH (10:00)
[2018-08-07] MEDS: REQUIP PO SCH ×3 (10:30→21:03)
[2018-08-07] MEDS: TAMIFLU PO SCH ×2 (10:30→21:03)
[2018-08-07] MEDS ORDERED: NS 1000 ML 2,000 ML ONE (12:52)
[2018-08-07] MEDS ORDERED: ALBUMIN HUMAN 25%- 100 ML 100 ML IV ONE (12:55)
[2018-08-07] MEDS: ALBUMIN HUMAN 25%- 100 ML 100 ML IV SCH (12:59)
[2018-08-07] MEDS: DUONEB 0.5 MG/3 MG NEB SCH ×3 (13:39→21:16)
[2018-08-07 13:56] LABS: BILIRUBIN,URINE NEGATIVE (NEGATIVE); BLOOD/HEMOGLOBIN,URINE NEGATIVE (NEGATIVE); GLUCOSE, URINE NEGATIVE (NEGATIVE); KETONES,URINE NEGATIVE (NEGATIVE); LEUKOCYTE ESTERASE ,URINE NEGATIVE (NEGATIVE); NITRITES,URINE NEGATIVE (NEGATIVE); PROTEIN,URINE 1+ (NEGATIVE); UROBILINOGEN,URINE NORMAL (NORMAL)
[2018-08-07 14:00] LABS: APPEARANCE,URINE CLEAR (CLEAR); COLOR,URINE YELLOW (YELLOW)
[2018-08-07 14:02] LABS: BACTERIA,URINE NEGATIVE /HPF (NEGATIVE); RBC,URINE NONE SEEN /HPF (NONE SEEN); SQUAMOUS EPITHELIAL CELL,UR NEGATIVE /HPF (NEGATIVE)
[2018-08-07 14:05] LABS: MUCUS,URINE FEW /HPF (NEGATIVE); YEAST,URINE RARE /HPF (NEGATIVE)
[2018-08-07 15:06] LABS: CKMB % 2.9 % (<4); CREATINE KINASE 35 Units/L (26-192); CREATINE KINASE MB < 1.0 ng/mL (0-4.0); TROPONIN I < 0.02 ng/mL (0-1.5)
[2018-08-07] MEDS: NS 1000 ML 1,000 ML IV SCH (17:00)
[2018-08-07 17:18] LABS: STOOL FOR WBC POSITIVE (NEGATIVE)
[2018-08-07] MEDS: PULMICORT NEB TX 0.5 MG NEB SCH (20:13)
[2018-08-08] MEDS: REQUIP PO SCH ×3 (05:02→21:00)
[2018-08-08] MEDS: ZOSYN VIAL 3.375 GRAMS 3.375 G in NS 100 ML IV + SPIKE MINIBAG* 100 ML IV SCH ×3 (05:02→21:00)
[2018-08-08] MEDS ORDERED: TYLENOL 325 MG TAB PO PRN (05:05)
[2018-08-08] MEDS ORDERED: TYLENOL 325 MG TAB PO ONE (05:09)
[2018-08-08 05:56] LABS: BASOPHILS % (AUTO) 0.9 % (0.2-1.0); EOSINOPHILS # (AUTO) 0.3 x10^3/uL (0.0-0.2); HEMATOCRIT 24.7 % (36.0-47.0); HEMOGLOBIN 8.3 g/dL (12.0-16.0); LYMPHOCYTES # (AUTO) 1.2 X10^3/uL (1.3-2.9); LYMPHOCYTES % (AUTO) 21.4 % (21.0-51.0); MEAN CORPUSCULAR HGB CONC 33.4 g/dL (33.0-35.0); MEAN CORPUSCULAR VOLUME 86.8 fL (80.0-100.0); MONOCYTES # (AUTO) 0.7 x10^3/uL (0.3-0.8); MONOCYTES % (AUTO) 12.9 % (0.0-13.0); NEUTROPHILS # (AUTO) 3.4 x10^3/uL (2.2-4.8); NEUTROPHILS % (AUTO) 59.8 % (42.0-75.0); PLATELET COUNT 225 X10^3/uL (150.0-450.0); RED BLOOD COUNT 2.85 X10^6/uL (3.5-5.4); RED CELL DISTRIBUTION WIDTH 15.4 % (11.6-16.5); WHITE BLOOD COUNT 5.7 X10^3/uL (3.6-10.0)
[2018-08-08] MEDS: DUONEB 0.5 MG/3 MG NEB SCH ×4 (06:03→21:09)
[2018-08-08 06:10] LABS: ALANINE AMINOTRANSFERASE 12 Units/L (12-78); ALKALINE PHOSPHATASE 51 Units/L (46-116); ASPARTATE AMINO TRANSFERASE 11 Units/L (15-37); BLOOD UREA NITROGEN 10 mg/dL (7-18); CALCIUM 8.2 mg/dL (8.5-10.1); CARBON DIOXIDE 23.3 mmol/L (21-32); CHLORIDE 106 mmol/L (98-107); CREATININE 0.92 mg/dL (0.55-1.02); SODIUM 139 mmol/L (136-145); TOTAL PROTEIN 5.8 g/dL (6.4-8.2); eGFR NON BLACK RACES > 60 (>60)
[2018-08-08] MEDS ORDERED: POTASSIUM CHL 40 MEQ/NS 0.45% 500 ML IV PRN (06:20)
[2018-08-08] MEDS ORDERED: K-RIDER 10 MEQ/NS 100 ML 10 MEQ/100 ML BAG IV PRN (06:20)
[2018-08-08] MEDS ORDERED: MICRO K EXTEN CAP 10 MEQ PO PRN (06:20)
[2018-08-08] MEDS ORDERED: POTASSIUM CHL 60 MEQ/NS 0.45% 500 ML IV PRN (06:20)
[2018-08-08] MEDS ORDERED: POTASSIUM CHLORIDE LIQ 20 MEQ UDC PO PRN (06:20)
[2018-08-08] MEDS ORDERED: KLOR-CON PO PRN (06:20)
[2018-08-08] MEDS ORDERED: MAGNESIUM SULFATE 1 GRAM/100 mL PREMIX 1 GM/100 ML BAG IV PRN (06:20)
[2018-08-08] MEDS ORDERED: MICRO K EXTEN CAP 10 MEQ PO ONE (06:23)
[2018-08-08] MEDS: K-DUR TAB 20 MEQ PO PRN (06:28)
[2018-08-08] MEDS: ALBUMIN HUMAN 25%- 100 ML 100 ML IV SCH (08:20)
[2018-08-08] MEDS: TAMIFLU PO SCH ×2 (08:21→20:39)
[2018-08-08] MEDS: PULMICORT NEB TX 0.5 MG NEB SCH ×2 (08:47→20:02)
[2018-08-08] MEDS: NS 1000 ML 1,000 ML IV SCH ×2 (11:13→18:15)
--- NOTE | 2018-08-08 12:40 | VAS ---
HISTORY: Low blood pressure in right arm Study: Arterial Doppler ultrasound of the right upper extremity Comparison: CTA of the chest done 06/22/2015. No prior Doppler ultrasound of right upper extremity. Technique: Grayscale, color and duplex Doppler evaluation of the arteries of the right upper extremity are provided. Findings: There is a low velocity present with a very flat appearing biphasic waveform present involving the right common carotid artery. This is an abnormal waveform and abnormally low velocity suggesting very low flow, perhaps distal occlusion. Dedicated carotid Doppler ultrasound is suggested. There is triphasic waveform present with normal velocities is seen involving the right subclavian and axillary arteries. Biphasic waveforms are present with normal velocities involving the right brachial CT the humerus and elbow regions. Monophasic waveforms are present with normal velocities involving the right radial and ulnar arteries. There is no evidence of focal hemodynamically significant stenosis. IMPRESSION: No evidence of focal hemodynamically significant stenosis involving the arteries of the right upper extremity. Very flat appearing biphasic waveform involving the right common carotid artery. This waveform and velocity are both abnormal. Dedicated carotid Doppler ultrasound examination is suggested. Reported By:
[2018-08-08] MEDS: ZOFRAN INJ 4 MG VIAL IVP PRN (16:59)
[2018-08-08] MEDS ORDERED: LOVENOX INJ 40 MG SYR SC ONE (18:08)
[2018-08-08] MEDS: LOVENOX INJ 40 MG SYR SC SCH (18:13)
[2018-08-09] MEDS: ZOSYN VIAL 3.375 GRAMS 3.375 G in NS 100 ML IV + SPIKE MINIBAG* 100 ML IV SCH ×3 (05:06→21:04)
[2018-08-09] MEDS: REQUIP PO SCH ×3 (05:07→21:05)
[2018-08-09] MEDS: DUONEB 0.5 MG/3 MG NEB SCH ×3 (05:16→21:03)
[2018-08-09 05:30] LABS: BASOPHILS # (AUTO) 0.1 X10^3/uL (0.0-0.1); EOSINOPHILS # (AUTO) 0.2 x10^3/uL (0.0-0.2); EOSINOPHILS % (AUTO) 3.3 % (0.9-2.9); HEMATOCRIT 26.2 % (36.0-47.0); HEMOGLOBIN 8.8 g/dL (12.0-16.0); LYMPHOCYTES # (AUTO) 1.2 X10^3/uL (1.3-2.9); LYMPHOCYTES % (AUTO) 18.2 % (21.0-51.0); MEAN CORPUSCULAR HGB CONC 33.5 g/dL (33.0-35.0); MEAN CORPUSCULAR VOLUME 86.6 fL (80.0-100.0); MEAN PLATELET VOLUME 9.1 fL (7.4-11.0); MONOCYTES # (AUTO) 0.7 x10^3/uL (0.3-0.8); MONOCYTES % (AUTO) 10.7 % (0.0-13.0); NEUTROPHILS # (AUTO) 4.3 x10^3/uL (2.2-4.8); NEUTROPHILS % (AUTO) 66.8 % (42.0-75.0); PLATELET COUNT 269 X10^3/uL (150.0-450.0); RED BLOOD COUNT 3.03 X10^6/uL (3.5-5.4); RED CELL DISTRIBUTION WIDTH 15.3 % (11.6-16.5); WHITE BLOOD COUNT 6.4 X10^3/uL (3.6-10.0)
[2018-08-09 05:42] LABS: ALANINE AMINOTRANSFERASE 18 Units/L (12-78); ALBUMIN 3.1 g/dL (3.4-5.0); ALKALINE PHOSPHATASE 48 Units/L (46-116); ASPARTATE AMINO TRANSFERASE 13 Units/L (15-37); BLOOD UREA NITROGEN 8 mg/dL (7-18); CALCIUM 8.5 mg/dL (8.5-10.1); CARBON DIOXIDE 23.3 mmol/L (21-32); CHLORIDE 106 mmol/L (98-107); COR CA(FOR HYPOALB) 9.2 mg/dL (8.5-10.1); CREATININE 0.83 mg/dL (0.55-1.02); SODIUM 140 mmol/L (136-145); TOTAL PROTEIN 6.1 g/dL (6.4-8.2); eGFR NON BLACK RACES > 60 (>60)
[2018-08-09] MEDS: K-DUR TAB 20 MEQ PO PRN (06:09)
[2018-08-09] MEDS ORDERED: NYSTATIN POWDER ONE (09:09)
--- NOTE | 2018-08-09 09:26 | VAS ---
HISTORY: Lobe blood pressure in the right arm. Abnormal carotid ultrasound on the right. Dizziness Study: Carotid Doppler ultrasound Comparison: Doppler Ultrasound of the right upper extremity done 08/08/2018. Technique: Grayscale, color and duplex Doppler evaluation of the cervical carotid arteries and vertebral arteries is provided. Findings: Carotid and vertebral arteries flow cephalad bilaterally. As noted on the Doppler ultrasound study of the right upper extremity, there is a low velocity, very flat appearing waveform involving right common carotid artery. Findings suggest a more proximal stenosis, likely in the upper chest, involving the innominate artery. Further evaluation will be needed by CTA of the chest. There is strong arterial flow signals present involving the right external artery, likely representing collateral supply to the right internal carotid artery. Right internal carotid artery waveforms are monophasic with peak systolic arterial velocity of 71 centimeters/second. There is a very strong right vertebral artery flow with peak systolic arterial velocity of 81.8 centimeters/second. Peak systolic arterial velocity in the left ICA is 130 centimeters/second. ICA/CCA ratios are as follows: On the right 3.21 on the left 1.21. Left vertebral artery peak systolic arterial velocities also very strong measured at 112.9 centimeters/second. IMPRESSION: Low velocity, flattened waveforms present involving the right CCA, as observed on the prior study. 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 Further evaluation will be needed, suggest CTA of the chest. 50-69% left ICA stenosis. Reported By:
[2018-08-09] MEDS: ALBUMIN HUMAN 25%- 100 ML 100 ML IV SCH (09:41)
[2018-08-09] MEDS: TAMIFLU PO SCH ×2 (09:42→20:39)
[2018-08-09] MEDS: LOVENOX INJ 40 MG SYR SC SCH (09:42)
[2018-08-09] MEDS: NYSTATIN POWDER TOP SCH ×2 (10:19→20:39)
[2018-08-09] MEDS ORDERED: NS 100 ML IV 100 ML IV ONE (10:28)
[2018-08-09] MEDS: NS 1000 ML 1,000 ML IV SCH (11:12)
[2018-08-09] MEDS: PULMICORT NEB TX 0.5 MG NEB SCH ×2 (11:48→21:04)
[2018-08-09] MEDS: DIFLUCAN 200 MG IV PREMIX* 200 MG/100 ML BAG IV SCH (11:52)
--- NOTE | 2018-08-09 12:19 | CT ---
CT ANGIOGRAPHY OF THE CHEST CLINICAL HISTORY: 83-year-old female with low velocity waveforms of the right CCA noted on carotid Doppler this date. COMPARISON: Carotid Doppler this date, CTA chest 09/04/2017. TECHNIQUE: CT angiogram of the chest was performed following the uncomplicated administration of intravenous contrast. Coronal and Sagittal reformats provided. MIP reformats are submitted for review. FINDINGS: No pulmonary embolus is seen. There is no thoracic aortic dissection. The heart is normal in size and there is no pericardial effusion. Severe atherosclerotic calcification of the coronary vessels and aortic annulus. There is no axillary or mediastinal lymphadenopathy. 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 Subclavian and right common carotid arteries are normally opacified distal to atherosclerotic calcifications that are present. Atherosclerotic calcification present at the origin of the left common carotid and left subclavian arteries, non flow limiting in appearance. Severe atherosclerotic calcification producing approximate 50% stenosis of the mid left subclavian artery is noted. Moderate atherosclerotic calcification within the abdominal aorta. Mild diffuse emphysematous change throughout the lungs with bibasilar subsegmental dependent atelectasis and chronic left apical pleural calcification and scar. The trachea and mainstem bronchi are patent. There is no pleural effusion or pneumothorax. Status post cholecystectomy with stable left renal cyst. Remaining imaged upper abdomen is without acute abnormality. Redemonstration of the so-called 'linguine sign' within the left breast implants status post mastectomy for breast cancer with overlying calcifications consistent with both intracapsular rupture and extracapsular leak. The osseous structures are intact without fracture or malalignment. IMPRESSION: 1. No pulmonary embolus. 2. 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 Vascular surgery consultation is recommended. 3. 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 4. Chronic findings consistent with intracapsular rupture of the left breast implant with the extracapsular leak. 5. Diffuse emphysematous change of the lungs. Reported By:
--- NOTE | 2018-08-09 19:55 | DR.H&P ---
H&P - History & Physical for Day of: H&P Date: 08/07/18 - Chief Complaint Chief Complaint: SOB, GENERALIZED ACHING, LOW URINE OUTPUT, DECREASED APPETITE - History of Present Illness History of Present Illness: IS A 83 YEAR OLD PATIENT OF OURS WHO PRESENTED TO THE EMERGENCY ROOM WITH COMPLAINTS OF DECREASED APPETITE, LOW URINARY OUTPUT, GENERALIZED ACHING, AND SHORTNESS OF BREATH. SHE REPORTS THAT SYMPTOMS STARTED A FEW DAYS AGO AND HAVE PROGRESSIVELY GOTTEN WORSE. ON ARRIVAL, VITALS WERE 101.2-84-22-98%-110/49. LABS WERE OBTAINED. ABNORMAL LAB VALUES INCLUDE THE FOLLOWING: RBC 3.47, HGB 10.0, HCT 29.8, SODIUM 134, BUN 22, INF LUENZA NEGATIVE. BLOOD CULTURES PENDING. A CHEST XRAY WAS OBTAINED AND REVEALED LUNGS CLEAR. SHE WAS NOTED WITH A DROP IN HER BLOOD PRESSURE IN THE ER AND WAS GIVEN A TOTAL OF 2,000 ML NORMAL SALINE AND FORTAZ 1GM IV X 1 DOSE. BLOOD PRESSURE ONLY NOTED WITH SLIGHT IMPROVEMENT. SHE WAS ADMITTED TO THE INTENSIVE CARE UNIT AND STARTED ON A DOPAMINE DRIP. SHE WAS ALSO STARTED ON ZOSYN 3.375GM IV TID, TAMIFLU 75MG PO BID, AND RESPIRATORY TREATMENTS. WE PLAN TO MONITOR HER BLOOD PRESSURE AND AM LABS AND 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. - Past Medical History Past Medical History: [place], Coronary Artery Disease, Hypertension, Dyslipidemia, Anemia, COPD, Asthma Additional Medical History: Breast and uterine cancer - Past Surgical History Surgical History: Angioplasty/Stents, Hysterectomy, Mastectomy - Family History Family Medical History: [place], Hypertension - Social History Does patient currently use any type of tobacco product: No Have you used tobacco products in the last 12 months: No Type of Tobacco Use: None Does any household member use tobacco: No Alcohol Use: None - Medications Home Medications: levofloxacin [From Levaquin] Allergy (Verified 07/22/18 18:54) CONTINUE taking the following medications cholecalciferol (vitamin D3) [Vitamin D3] 1 tab PO DAILY 08/07/18 [History] gabapentin 100 mg PO 1400 08/07/18 [History] potassium chloride 10 meq PO DAILY 08/07/18 [History] tramadol-acetaminophen 1 tab PO TID 08/07/18 [History] - Review of Systems Constitutional: See HPI, Weakness, Other (DECREASED APPETITE, GENERALIZED ACHING ) Eyes: No Symptoms Reported ENT: No Symptoms Reported Respiratory: Shortness of Breath Cardiovascular: No Symptoms Reported Gastrointestinal: No Symptoms Reported Genitourinary: See HPI (DECREASED URINE OUTPUT ) Musculoskeletal: See HPI, Other (GENERALIZED PAIN AND ACHING ) Skin: No Symptoms Reported Neurological: Weakness - Physical Exam Vital Signs: Temperature 98.8 F Pulse Rate [Apical] 77 Pulse Rate 78 Respiratory Rate 20 Blood Pressure [Left Calf] 126/56 Blood Pressure [Left Arm] 98/53 Blood Pressure [Right Calf] 168/77 Blood Pressure [Right Arm] 75/44 Blood Pressure 176/70 O2 Sat by Pulse Oximetry 91 Oriented: Normal Eyes: Normal Ear: Normal Nose: Normal Throat: Normal Respiratory: Diminished Throughout Cardiovascular: Normal. negative: S3, S4, Murmur : Normal Auscultation: Bowel Sounds: Normal Palpation: Normal Tenderness: Normal Skin: Normal Musculoskeletal: Tender Psychiatric: Normal Mood Description: Calm Affect: Normal Speech Pattern: Clear - Assessment/Plan (1) Hypotension Qualifiers: Hypotension type: unspecified hypotension type Qualified Code(s): I95.9 - Hypotension, unspecified Status: Acute Plan: DOPAMINE DRIP, IV HYDRATION, 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 (2) Fever Qualifiers: Fever type: unspecified Qualified Code(s): R50.9 - Fever, unspecified Status: Acute (3) Dyspnea Qualifiers: Dyspnea type: shortness of breath Qualified Code(s): R06.02 - Shortness of breath; R06.00 - Dyspnea, unspecified; R06.01 - Orthopnea Status: Acute (4) Generalized weakness Status: Acute - Allergies Allergies/Adverse Reactions: Allergies Allergy/AdvReac Type Severity Reaction Status Date / Time levofloxacin [From Levaquin] Allergy Verified 07/22/18 18:54
--- NOTE | 2018-08-09 20:27 | PCM.PROG ---
Progress Note - Progress Note for Day of Date of Exam: 08/08/18 - Subjective Subjective: WAS ADMITTED FOR HYPOTENSION, FEVER, DYSPNEA, AND GENERALIZED WEAKNESS. ON EXAMINATION, HEART IS REGULAR IN RATE AND RHYTHM. BILATERAL LUNGS ARE NOTED WITH DIMINISHED LUNG SOUNDS THROUGHOUT. ABDOMEN IS ROUND, SOFT, AND NON-TENDER WITH NORMAL BOWEL SOUNDS NOTED IN ALL QUADRANTS. HER VITALS THIS MORNING ARE 9.1-67-26-97%-148/66. LABS WERE OBTAINED. ABNORMAL LAB VALUES INCLUDE THE FOLLOWING: RBC 2.85, HGB 8.3, HCT 24.7, GLUCOSE 101, CALCIUM 8.2, AST 11, TOTAL PROTEIN 5.8, ALBUMIN 3.0. STOOL POSITIVE FOR OCCULT BLOOD. YESTERDAY, BLOOD PRESSURES HAD BEEN BEING OBTAINED IN THE RIGHT ARM DUE TO LEFT SIDED MASTECTOMY. 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 THIS COULD EXPLAIN WHY BLOOD PRESSURE READINGS WERE LOW IN THE RIGHT ARM. TODAY, WE WILL OBTAIN AN ARTERIAL DOPPLER TO CONFIRM. TODAY, WE WILL OBTAIN A SUBCLAVIAN AND AXILLARY ARTERIAL DOPPLER. OTHERWISE, WE WILL CONTINUE WITH IV ANTIBIOTICS, IV HYDRATION, AND CURRENT PLAN OF CARE. WE PLAN TO FOLLOW UP WITH AM LABS AND 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. - Past Medical Family Social History Past Med/Fam/Surg Hx: No changes since H&P Allergies: Allergies levofloxacin [From Levaquin] Allergy (Verified 07/22/18 18:54) - Review of Systems ROS: No change since H&P - Vital Signs and I&O's Vital Signs: Temperature 98.8 F Pulse Rate [Apical] 77 Pulse Rate 78 Respiratory Rate 20 Blood Pressure [Left Calf] 126/56 Blood Pressure [Left Arm] 98/53 Blood Pressure [Right Calf] 168/77 Blood Pressure [Right Arm] 75/44 Blood Pressure 176/70 O2 Sat by Pulse Oximetry 91 Intake and Output: Intake & Output 08/07/18 08/08/18 08/09/18 08/10/18 11:59 11:59 11:59 11:59 Intake Total 35 / 35 5195 / 5195 1390 / 1390 360 / 360 Output Total 1850 / 1850 1025 / 1025 700 / 700 Balance 35 / 35 3345 / 3345 365 / 365 -340 / -340 - Physical Exam Oriented: Normal Eyes: Normal Ear: Normal Nose: Normal Throat: Normal Respiratory: Generalized, Diminished Cardiovascular: Normal. negative: S3, S4, Murmur : Normal Auscultation: Bowel Sounds: Normal Palpation: Normal Tenderness: Normal Skin: Normal Musculoskeletal: Tender Psychiatric: Normal Mood Description: Calm Affect: Normal Speech Pattern: Clear - Laboratory and Diagnostics Result Diagrams: 08/09/18 04:53 08/09/18 04:53 Labs: 08/07/18 06:53 Blood Blood Culture - Preliminary 08/07/18 06:40 Blood Blood Culture - Preliminary 08/07/18 16:45 Stool Stool Culture - Final 08/07/18 16:45 Stool - Final Laboratory WBC 6.4 X10^3/uL (3.6-10.0) 08/09/18 04:53 RBC 3.03 X10^6/uL (3.5-5.4) L 08/09/18 04:53 Hgb 8.8 g/dL (12.0-16.0) L 08/09/18 04:53 Hct 26.2 % (36.0-47.0) L 08/09/18 04:53 MCV 86.6 fL (80.0-100.0) 08/09/18 04:53 MCH 29.0 pg (27.0-34.0) 08/09/18 04:53 MCHC 33.5 g/dL (33.0-35.0) 08/09/18 04:53 RDW 15.3 % (11.6-16.5) 08/09/18 04:53 Plt Count 269 X10^3/uL (150.0-450.0) 08/09/18 04:53 MPV 9.1 fL (7.4-11.0) 08/09/18 04:53 Neut % (Auto) 66.8 % (42.0-75.0) 08/09/18 04:53 Lymph % (Auto) 18.2 % (21.0-51.0) L 08/09/18 04:53 [place] % (Auto) 10.7 % (0.0-13.0) 08/09/18 04:53 Eos % (Auto) 3.3 % (0.9-2.9) H 08/09/18 04:53 Baso % (Auto) 1.0 % (0.2-1.0) 08/09/18 04:53 Neut # (Auto) 4.3 x10^3/uL (2.2-4.8) 08/09/18 04:53 Lymph # (Auto) 1.2 X10^3/uL (1.3-2.9) L 08/09/18 04:53 [place] # (Auto) 0.7 x10^3/uL (0.3-0.8) 08/09/18 04:53 Eos # (Auto) 0.2 x10^3/uL (0.0-0.2) 08/09/18 04:53 Baso # (Auto) 0.1 X10^3/uL (0.0-0.1) 08/09/18 04:53 Absolute Nucleated RBC 0.0 /100WBC 08/09/18 04:53 INR Target Range - 08/07/18 06:40 INR 0.92 (0.8-1.3) 08/07/18 06:40 APTT 27.0 SECONDS (22.9-36.5) 08/07/18 06:40 PTT Comment - 08/07/18 06:40 Sodium 140 mmol/L (136-145) 08/09/18 04:53 Corrected Sodium TNP 08/09/18 04:53 Potassium 3.7 mmol/L (3.5-5.1) 08/09/18 04:53 Chloride 106 mmol/L (98-107) 08/09/18 04:53 Carbon Dioxide 23.3 mmol/L (21-32) 08/09/18 04:53 BUN 8 mg/dL (7-18) 08/09/18 04:53 Creatinine 0.83 mg/dL (0.55-1.02) 08/09/18 04:53 Est GFR (MDRD) Af Amer > 60 (>60) 08/09/18 04:53 Est GFR (MDRD) Non-Af > 60 (>60) 08/09/18 04:53 Glucose 100 mg/dL (65-99) H 08/09/18 04:53 Lactic Acid 1.3 mmol/L (0.4-2.0) 08/07/18 07:30 Calcium 8.5 mg/dL (8.5-10.1) 08/09/18 04:53 Corrected Calcium 9.2 mg/dL (8.5-10.1) 08/09/18 04:53 Magnesium 2.1 mg/dL (1.7-2.9) 08/08/18 05:31 Total Bilirubin 0.30 mg/dL (0.2-1.0) 08/09/18 04:53 AST 13 Units/L (15-37) L 08/09/18 04:53 ALT 18 Units/L (12-78) 08/09/18 04:53 Alkaline Phosphatase 48 Units/L (46-116) 08/09/18 04:53 Creatine Kinase 35 Units/L (26-192) 08/07/18 14:36 CK-MB (CK-2) < 1.0 ng/mL (0-4.0) 08/07/18 14:36 CK/CKMB % Calc 2.9 % (<4) 08/07/18 14:36 Troponin I < 0.02 ng/mL (0-1.5) 08/07/18 14:36 C-Reactive Protein 1.80 mg/L (0-3.0) 08/07/18 06:40 Total Protein 6.1 g/dL (6.4-8.2) L 08/09/18 04:53 Albumin 3.1 g/dL (3.4-5.0) L 08/09/18 04:53 Globulin 3.0 g/dL (2.5-4.5) 08/09/18 04:53 Albumin/Globulin Ratio 1.0 Ratio (1.1-2.1) L 08/09/18 04:53 Specimen Type Catherized urine 08/07/18 13:45 Urine Color Yellow (YELLOW) 08/07/18 13:45 Urine Appearance Clear (CLEAR) 08/07/18 13:45 Urine pH 5.0 (5.0 - 8.0) 08/07/18 13:45 Ur Specific [place] 1.010 (1.000-1.030) 08/07/18 13:45 Urine Protein 1+ (NEGATIVE) 08/07/18 13:45 Urine Glucose (UA) Negative (NEGATIVE) 08/07/18 13:45 Urine Ketones Negative (NEGATIVE) 08/07/18 13:45 Urine Occult Blood Negative (NEGATIVE) 08/07/18 13:45 Urine Nitrite Negative (NEGATIVE) 08/07/18 13:45 Urine Bilirubin Negative (NEGATIVE) 08/07/18 13:45 Urine Urobilinogen Normal (NORMAL) 08/07/18 13:45 Ur Leukocyte Esterase Negative (NEGATIVE) 08/07/18 13:45 Urine RBC None seen /HPF (NONE SEEN) 08/07/18 13:45 Urine WBC None seen /HPF (NONE SEEN) 08/07/18 13:45 Ur Squamous Epith Cells Negative /HPF (NEGATIVE) 08/07/18 13:45 Urine Bacteria Negative /HPF (NEGATIVE) 08/07/18 13:45 Urine Mucus Few /HPF (NEGATIVE) 08/07/18 13:45 Urine Yeast Rare /HPF (NEGATIVE) 08/07/18 13:45 Ur Culture Indicated? No/not indicated 08/07/18 13:45 Stool Description 6g,black,unformed 08/07/18 16:45 Stl Occult Blood (IFOB) Positive (NEGATIVE) A 08/07/18 16:45 Stool for White Cells Positive (NEGATIVE) A 08/07/18 16:45 Stl C. diff Tox B Gene Negative (NEGATIVE) 08/07/18 16:45 Stl C. diff [id number] Negative (NEGATIVE) 08/07/18 16:45 Influenza Type A (PCR) Negative (NEGATIVE) 08/07/18 07:39 Influenza Type B (PCR) Negative (NEGATIVE) 08/07/18 07:39 - Plan (1) Hypotension Status: Resolved Qualifiers: Hypotension type: unspecified hypotension type Qualified Code(s): I95.9 - Hypotension, unspecified Plan: IV HYDRATION, 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 (2) Fever Status: Acute Qualifiers: Fever type: unspecified Qualified Code(s): R50.9 - Fever, unspecified (3) Dyspnea Status: Acute Qualifiers: Dyspnea type: shortness of breath Qualified Code(s): R06.02 - Shortness of breath; R06.00 - Dyspnea, unspecified; R06.01 - Orthopnea (4) Generalized weakness Status: Acute
[2018-08-09] MEDS: ZOFRAN INJ 4 MG VIAL IVP PRN (23:12)
[2018-08-10] MEDS: ZOSYN VIAL 3.375 GRAMS 3.375 G in NS 100 ML IV + SPIKE MINIBAG* 100 ML IV SCH (05:13)
[2018-08-10] MEDS: REQUIP PO SCH (05:13)
[2018-08-10] MEDS: DUONEB 0.5 MG/3 MG NEB SCH (05:30)
[2018-08-10 06:05] LABS: BASOPHILS # (AUTO) 0.1 X10^3/uL (0.0-0.1); BASOPHILS % (AUTO) 0.6 % (0.2-1.0); EOSINOPHILS # (AUTO) 0.1 x10^3/uL (0.0-0.2); EOSINOPHILS % (AUTO) 0.9 % (0.9-2.9); HEMATOCRIT 27.9 % (36.0-47.0); HEMOGLOBIN 9.3 g/dL (12.0-16.0); LYMPHOCYTES # (AUTO) 1.1 X10^3/uL (1.3-2.9); LYMPHOCYTES % (AUTO) 11.1 % (21.0-51.0); MEAN CORPUSCULAR HEMOGLOBIN 28.7 pg (27.0-34.0); MEAN CORPUSCULAR HGB CONC 33.5 g/dL (33.0-35.0); MEAN CORPUSCULAR VOLUME 85.8 fL (80.0-100.0); MEAN PLATELET VOLUME 8.8 fL (7.4-11.0); MONOCYTES # (AUTO) 0.9 x10^3/uL (0.3-0.8); MONOCYTES % (AUTO) 9.7 % (0.0-13.0); NEUTROPHILS # (AUTO) 7.4 x10^3/uL (2.2-4.8); NEUTROPHILS % (AUTO) 77.7 % (42.0-75.0); PLATELET COUNT 295 X10^3/uL (150.0-450.0); RED BLOOD COUNT 3.25 X10^6/uL (3.5-5.4); RED CELL DISTRIBUTION WIDTH 15.3 % (11.6-16.5); WHITE BLOOD COUNT 9.5 X10^3/uL (3.6-10.0)
[2018-08-10 06:29] LABS: ALANINE AMINOTRANSFERASE 22 Units/L (12-78); ALBUMIN 3.5 g/dL (3.4-5.0); ALKALINE PHOSPHATASE 54 Units/L (46-116); ASPARTATE AMINO TRANSFERASE 12 Units/L (15-37); BLOOD UREA NITROGEN 6 mg/dL (7-18); CALCIUM 8.8 mg/dL (8.5-10.1); CARBON DIOXIDE 23.8 mmol/L (21-32); CHLORIDE 104 mmol/L (98-107); COR NA(FOR HYPERGLY) 139 mmol/L (136-145); CREATININE 0.85 mg/dL (0.55-1.02); SODIUM 138 mmol/L (136-145); TOTAL PROTEIN 6.7 g/dL (6.4-8.2); eGFR NON BLACK RACES > 60 (>60)
[2018-08-10 08:23] VITALS: BP 197/77
[2018-08-10] MEDS: TAMIFLU PO SCH (08:46)
[2018-08-10] MEDS: PULMICORT NEB TX 0.5 MG NEB SCH (08:46)
[2018-08-10] MEDS: ALBUMIN HUMAN 25%- 100 ML 100 ML IV SCH (08:47)
[2018-08-10] MEDS: DIFLUCAN 200 MG IV PREMIX* 200 MG/100 ML BAG IV SCH (08:47)
[2018-08-10] MEDS: LOVENOX INJ 40 MG SYR SC SCH (08:48)
[2018-08-10] MEDS: NYSTATIN POWDER TOP SCH (08:49)
[2018-08-10] MEDS: NS 1000 ML 1,000 ML IV SCH (09:54)
[2018-08-10] MEDS ORDERED: LANTISEPTIC TOP SCH (21:00)
== END 2018-08-10 11:55 | disposition hospice, home (50) | DRG 316 ==
LOC: ER 06:10 → OBSVTOIN 07:56 → INTOOBSV 07:56 → ICU 07:56 → MED/SURG 08-08 16:14
PROVIDERS: ADMIT Internal Medicine; ATTEND Internal Medicine
DX: J44.9 Chronic obstructive pulmonary disease, unspecified; I95.89 Other hypotension; I25.10 Atherosclerotic heart disease of native coronary artery without angina pectoris; R06.02 Shortness of breath; E78.2 Mixed hyperlipidemia; Z66 Do not resuscitate; R63.0 Anorexia; R50.9 Fever, unspecified; I10 Essential (primary) hypertension; R53.1 Weakness
CPT/HCPCS: 36415; 51701; 71010; 71045; 71275; 80053; 81001; 82270; 82550; 82553; 83605; 83630; 83735; 84484; 85025; 85610; 85730; 86140; 87040; 87045; 87427; 87449; 87493; 87502; 87899; 93005; 93880; 93930; 94640; 96365; 96374; 97162; 97166; 97530; 97535; 99284; 99285; A4222; G9035; P9047; J0713; J1265; J1450; J1650; J2405; J2543; J3490; J7030; J7050; J7620; J7626

== ENCOUNTER 2018-08-11 04:59 | Observation (INO) ==
[2018-08-11 05:18] VITALS: BMI 23.4
--- NOTE | 2018-08-11 05:24 | DR.SOBA ---
HPI - Time Seen Time seen: 05:17 - Complaints Chief Complaint Doctors Comments: Patient states she just went home and has been having SOB and having problems breathing with intermittent chest pain and decreased appetite. States she do not think she has gone to the bathroom since they took the duenas cath out before she went home. states she has been wearing her oxygen at home and using her breathing treatments but still having problems catching her breath. States she is a patient of Dr. Cohen and thinks she need some therapy because she did not walk before going home. She has been walking with her walker. She is complaining of chest pain and wheezing with SOB and edema. She denies nausea or vomiting. She denies stomach pain or dysuria. - Reviewed Nurses Notes Reviewed: Yes - Source History Provided: Patient, EMS - Mode of Arrival Mode of Arrival: EMS - Duration Onset: a.m. Duration: Hours - Context Onset:: At Rest, With Light Exertion PE Risk Factors:: None History of:: COPD Currently on:: Inhaled Bronchodilators Prehospital Care:: O2, Inhaled B2 - Modifying Factors Worsens:: Exertion Improves:: Nothing - Associated Signs and Symptoms Associated Signs and Symptoms: Wheeze, Cough, Chest Pain - If Chest Pain Quality: Pressure like Location: Substernal - If Cough Cough: Nonproductive PMH - PMH Past Medical History: [place], Coronary Artery Disease, Hypertension, Dyslipidemia, Anemia, COPD, Asthma Past Surgical History: Yes Surgical History: Angioplasty/Stents, Hysterectomy, Mastectomy - Family History Family Medical History: [place], Hypertension - Social History Do you use any recreational Drugs:: No ROS - Review of Systems Constitutional: No Symptoms Reported, Weakness, Loss of Appetite Eyes: No Symptoms Reported ENTM: No Symptoms Reported Respiratoy: No Symptoms Reported, Non-Productive Cough, Short of Breath, Wheezing Cardiovascular: No Symptoms Reported, Chest Pain Gastrointestinal/Abdominal: No Symptoms Reported. negative: See HPI, Abdominal Pain, Constipation, Diarrhea, Nausea, Vomiting, Food Intolerance, Other Genitourinary: No Symptoms Reported. negative: See HPI, Discharge, Dysuria, Frequency, Hematuria, Pain, Bleeding, Other Neurological: No Symptoms Reported, Weakness, Problems Walking Musculoskeletal: No Symptoms Reported Integumentary: No Symptoms Reported Hematologic/Lymphatic: No Symptoms Reported, Anemia Endocrine: No Symptoms Reported. negative: See HPI, Excessive Sweating, Flushing, Intolerance to Cold, Intolerance to Heat, Increased Hunger, Increased Thirst, Increased Urine, Unexplained Weight Gain, Unexplained Weight Loss, Failure to Thrive, Decreased Appetite, Other Psychiatric: No Symptoms Reported. negative: See HPI, Anxiety, Depression, Hallucinations, Excessive crying, Suicidal, Other PE - General Limitations: No Limitations General Appearance: Alert, In Distress (moderate) - Head Head Exam: Normal Inspection, Atraumatic, Normocephalic - Eyes Eye exam: Normal Appearance, PERRL, EOMI. negative: Scleral Icterus, Conjunctival Injection, Nystagmus, Miosis, Mydrasis, Periorbital Swelling, Periorbital Tenderness, Other - ENT ENT Exam: Normal Exam, Normal Oropharynx, Normal External Ear Exam, Mucous Membranes Moist, TM's Normal Bilaterally - Neck Neck Exam: Normal Inspection, Full ROM, Trachea Midline - Chest Chest Inspection: Normal Inspection, Symmetric Chest Wall Rise - Respiratory Respiratory Exam: Normal Lung Sounds Bilat, Prolonged Expiratory Phase Respiratory Exam: Bilateral Wheezing, Bilateral Rales, Bilateral Decreased Breath Sounds - Cardiovascular Cardiovascular Exam: Regular Rate, Normal Rhythm, Normal Heart Sounds, Systolic Murmur - Abdominal Exam Abdominal Exam: Normal Inspection, Normal Bowel Sounds, Soft Abdominal Tenderness: negative: RUQ, RLQ, LUQ, LLQ, Epigastrium, Suprapubic, Diffuse, Mild, Moderate, Severe, Other - Extremities Extremities Exam: Normal Inspection, Full ROM, Normal Capillary Refill. negative: Tenderness, Edema, Joint Swelling, Calf Tenderness, Other - Back Back Exam: Normal Inspection, Full ROM. negative: Tenderness, (R) CVA Tendern ess, (L) CVA Tenderness, Muscle Spasm, Paraspinal Tenderness, Vertebral Tenderness, Rashes, (R) Sciatic Notch Tenderness, (L) Sciatic Notch Tendern, (R) Straight Leg Raise, (L) Straight Leg Raise, Other - Neurologic Neurological Exam: Alert, Oriented X3, CN II-XII Intact, Normal Gait, Reflexes Normal - Psychiatric Psychiatric Exam: Normal Affect, Normal Mood - Skin Skin Exam: Warm, Dry, Intact, Normal Color - Vital Signs Vitals: Temperature 100.6 F Pulse Rate [Left] 84 Pulse Rate 112 Respiratory Rate 20 Blood Pressure [Left Calf] 126/56 Blood Pressure [Left Arm] 165/65 Blood Pressure [Right Calf] 168/77 Blood Pressure [Right Arm] 75/44 Blood Pressure 178/77 O2 Sat by Pulse Oximetry 96 Course - Reevaluation 1st: Improved - Consultation Called: 07:14 Call Returned: 07:14 (Dr. Taylor to admit) - Education/Counseling Education/Counseling: Patient, Family Educated On: Treatment, Diagnosis, Needs for Follow Up ROR - Labs Reviewed Laboratory Results Reviewed?: Yes (All labs and x-ray results reviewed and discussed with patient) Result Diagrams: 08/11/18 06:13 08/11/18 06:13 - XRAY XRAY Interpreted by: Radiologist (CXR: Increased reticular markings of both lungs suggesting atypical infection or possible edema) - EKG Rate: 83 [place]: Normal Rhythm: NSR Block: None Hypertrophy: None ST: Nonsp - Labs Reviewed Laboratory: WBC 9.2 X10^3/uL (3.6-10.0) 08/11/18 06:13 RBC 3.04 X10^6/uL (3.5-5.4) L 08/11/18 06:13 Hgb 8.8 g/dL (12.0-16.0) L 08/11/18 06:13 Hct 25.9 % (36.0-47.0) L 08/11/18 06:13 MCV 85.3 fL (80.0-100.0) 08/11/18 06:13 MCH 29.0 pg (27.0-34.0) 08/11/18 06:13 MCHC 33.9 g/dL (33.0-35.0) 08/11/18 06:13 RDW 15.7 % (11.6-16.5) 08/11/18 06:13 Plt Count 305 X10^3/uL (150.0-450.0) 08/11/18 06:13 MPV 8.9 fL (7.4-11.0) 08/11/18 06:13 Neut % (Auto) 78.4 % (42.0-75.0) H 08/11/18 06:13 Lymph % (Auto) 9.0 % (21.0-51.0) L 08/11/18 06:13 [place] % (Auto) 11.3 % (0.0-13.0) 08/11/18 06:13 Eos % (Auto) 1.1 % (0.9-2.9) 08/11/18 06:13 Baso % (Auto) 0.2 % (0.2-1.0) 08/11/18 06:13 Neut # (Auto) 7.2 x10^3/uL (2.2-4.8) H 08/11/18 06:13 Lymph # (Auto) 0.8 X10^3/uL (1.3-2.9) L 08/11/18 06:13 [place] # (Auto) 1.0 x10^3/uL (0.3-0.8) H 08/11/18 06:13 Eos # (Auto) 0.1 x10^3/uL (0.0-0.2) 08/11/18 06:13 Baso # (Auto) 0.0 X10^3/uL (0.0-0.1) 08/11/18 06:13 Absolute Nucleated RBC 0.0 /100WBC 08/11/18 06:13 INR Target Range - 08/11/18 06:13 INR 1.10 (0.8-1.3) 08/11/18 06:13 APTT 31.0 SECONDS (22.9-36.5) 08/11/18 06:13 PTT Comment - 08/11/18 06:13 Sodium 139 mmol/L (136-145) 08/11/18 06:13 Corrected Sodium TNP 08/11/18 06:13 Potassium 3.3 mmol/L (3.5-5.1) L 08/11/18 06:13 Chloride 103 mmol/L (98-107) 08/11/18 06:13 Carbon Dioxide 24.3 mmol/L (21-32) 08/11/18 06:13 BUN 11 mg/dL (7-18) 08/11/18 06:13 Creatinine 0.91 mg/dL (0.55-1.02) 08/11/18 06:13 Est GFR (MDRD) Af Amer > 60 (>60) 08/11/18 06:13 Est GFR (MDRD) Non-Af > 60 (>60) 08/11/18 06:13 Glucose 104 mg/dL (65-99) H 08/11/18 06:13 Calcium 9.0 mg/dL (8.5-10.1) 08/11/18 06:13 Corrected Calcium TNP 08/11/18 06:13 Magnesium 2.0 mg/dL (1.7-2.9) 08/11/18 06:13 Total Bilirubin 0.50 mg/dL (0.2-1.0) 08/11/18 06:13 AST 11 Units/L (15-37) L 08/11/18 06:13 ALT 20 Units/L (12-78) 08/11/18 06:13 Alkaline Phosphatase 51 Units/L (46-116) 08/11/18 06:13 Creatine Kinase 22 Units/L (26-192) L 08/11/18 06:13 CK-MB (CK-2) < 1.0 ng/mL (0-4.0) 08/11/18 06:13 CK/CKMB % Calc 4.6 % (<4) 08/11/18 06:13 Troponin I 0.02 ng/mL (0-1.5) 08/11/18 06:13 Total Protein 6.6 g/dL (6.4-8.2) 08/11/18 06:13 Albumin 3.5 g/dL (3.4-5.0) 08/11/18 06:13 Globulin 3.1 g/dL (2.5-4.5) 08/11/18 06:13 Albumin/Globulin Ratio 1.1 Ratio (1.1-2.1) 08/11/18 06:13 - Diagnosis Discharge Problem: Respiratory distress, COPD exacerbation, Normocytic anemia, Atypical pneumonia, Congestive heart failure Pulmonary edema Qualifiers: Chronicity: acute Qualified Code(s): J81.0 - Acute pulmonary edema - Discharge Plan Disposition: ADMITTED INPATIENT Condition: Stable
[2018-08-11] MEDS ORDERED: SOLU-Medrol 125 MG VIAL IVP ONE (06:04)
[2018-08-11] MEDS ORDERED: DUONEB 0.5 MG/3 MG NEB ONE (06:04)
[2018-08-11] MEDS ORDERED: LASIX IVP STA (06:05)
[2018-08-11] MEDS ORDERED: LASIX ONE (06:07)
[2018-08-11] MEDS ORDERED: SOLU-Medrol 125 MG VIAL ONE (06:07)
[2018-08-11 06:33] LABS: BASOPHILS % (AUTO) 0.2 % (0.2-1.0); EOSINOPHILS # (AUTO) 0.1 x10^3/uL (0.0-0.2); EOSINOPHILS % (AUTO) 1.1 % (0.9-2.9); HEMATOCRIT 25.9 % (36.0-47.0); HEMOGLOBIN 8.8 g/dL (12.0-16.0); LYMPHOCYTES # (AUTO) 0.8 X10^3/uL (1.3-2.9); MEAN CORPUSCULAR HGB CONC 33.9 g/dL (33.0-35.0); MEAN CORPUSCULAR VOLUME 85.3 fL (80.0-100.0); MEAN PLATELET VOLUME 8.9 fL (7.4-11.0); MONOCYTES % (AUTO) 11.3 % (0.0-13.0); NEUTROPHILS # (AUTO) 7.2 x10^3/uL (2.2-4.8); NEUTROPHILS % (AUTO) 78.4 % (42.0-75.0); PLATELET COUNT 305 X10^3/uL (150.0-450.0); RED BLOOD COUNT 3.04 X10^6/uL (3.5-5.4); RED CELL DISTRIBUTION WIDTH 15.7 % (11.6-16.5); WHITE BLOOD COUNT 9.2 X10^3/uL (3.6-10.0)
[2018-08-11] MEDS ORDERED: DUONEB 0.5 MG/3 MG ONE (06:43)
--- NOTE | 2018-08-11 06:53 | RAD ---
Chest, 1 view Indication: Shortness of breath Comparison: 08/07/2018 Findings: There are diffusely increased reticular markings of both lungs, most prominent within the mid to lower lungs. No dense infiltrates or significant pleural effusion. The cardiac silhouette is unremarkable. Impression: Increased reticular markings of both lungs, suggesting atypical infection or possibly mild edema. Reported By:
[2018-08-11 07:00] LABS: ALANINE AMINOTRANSFERASE 20 Units/L (12-78); ALBUMIN 3.5 g/dL (3.4-5.0); ALKALINE PHOSPHATASE 51 Units/L (46-116); ASPARTATE AMINO TRANSFERASE 11 Units/L (15-37); BLOOD UREA NITROGEN 11 mg/dL (7-18); CARBON DIOXIDE 24.3 mmol/L (21-32); CHLORIDE 103 mmol/L (98-107); CREATINE KINASE 22 Units/L (26-192); CREATINE KINASE MB < 1.0 ng/mL (0-4.0); CREATININE 0.91 mg/dL (0.55-1.02); SODIUM 139 mmol/L (136-145); TOTAL PROTEIN 6.6 g/dL (6.4-8.2); TROPONIN I 0.02 ng/mL (0-1.5); eGFR NON BLACK RACES > 60 (>60)
[2018-08-11 07:05] LABS: CKMB % 4.6 % (<4)
[2018-08-11] MEDS ORDERED: ZOSYN VIAL 3.375 GRAMS 3.375 G in NS 100 ML IV + SPIKE MINIBAG* 100 ML IV ONE (07:08)
[2018-08-11 07:09] LABS: B-TYPE NATRIURETIC PEPTIDE 1040 pg/mL (0-79)
[2018-08-11] MEDS ORDERED: NS 100 ML IV + SPIKE MINIBAG* 100 ML IV ONE (07:26)
[2018-08-11] MEDS ORDERED: ZOSYN VIAL 3.375 GRAMS IV ONE (07:27)
[2018-08-11] MEDS: ZOSYN VIAL 3.375 GRAMS 3.375 G in NS 100 ML IV + SPIKE MINIBAG* 100 ML IV SCH ×3 (07:41→21:01)
[2018-08-11] MEDS ORDERED: SALINE 3% 15 ML NEB TX NEB ONE (08:20)
[2018-08-11] MEDS: DUONEB 0.5 MG/3 MG NEB SCH ×5 (08:20→21:00)
[2018-08-11] MEDS: LASIX IVP SCH ×2 (09:20→20:51)
[2018-08-11] MEDS ORDERED: KLOR-CON PO PRN (09:23)
[2018-08-11] MEDS ORDERED: POTASSIUM CHLORIDE LIQ 20 MEQ UDC PO PRN (09:23)
[2018-08-11] MEDS ORDERED: POTASSIUM CHL 60 MEQ/NS 0.45% 500 ML IV PRN (09:23)
[2018-08-11] MEDS ORDERED: MICRO K EXTEN CAP 10 MEQ PO PRN (09:23)
[2018-08-11] MEDS ORDERED: K-RIDER 10 MEQ/NS 100 ML 10 MEQ/100 ML BAG IV PRN (09:23)
[2018-08-11] MEDS ORDERED: POTASSIUM CHL 40 MEQ/NS 0.45% 500 ML IV PRN (09:23)
[2018-08-11] MEDS: K-DUR TAB 20 MEQ PO PRN (11:38)
--- NOTE | 2018-08-11 11:53 | DR.H&P ---
H&P - History & Physical for Day of: H&P Date: 08/11/18 - Chief Complaint Chief Complaint: SOB, FEVER, AMS - History of Present Illness History of Present Illness: 83 WF ER ADMISSION AFTER PRESENTING WITH CO she just went home on Monday morning and has been having SOB and having problems breathing with intermittent chest pain and decreased appetite. States she do not think she has gone to the bathroom since they took the duenas cath out before she went home. states she has been wearing her oxygen at home and using her breathing treatments but still having problems catching her breath. States she is a patient of Dr. Cohen and thinks she need some therapy because she did not walk before going home. She has been walking with her walker. She is complaining of chest pain and wheezing with SOB and edema. She denies nausea or vomiting. She denies stomach pain or dysuria. - Past Medical History Past Medical History: [place], Coronary Artery Disease, Hypertension, Dyslipidemia, Anemia, COPD, Asthma Additional Medical History: Breast and uterine cancer - Past Surgical History Surgical History: Angioplasty/Stents, Hysterectomy, Mastectomy - Family History Family Medical History: [place], Hypertension - Social History Does patient currently use any type of tobacco product: No Have you used tobacco products in the last 12 months: No Type of Tobacco Use: None Does any household member use tobacco: No Alcohol Use: None Drug Use: None - Medications Home Medications: levofloxacin [From Levaquin] Allergy (Verified 07/22/18 18:54) CONTINUE taking the following medications acetaminophen-codeine [Tylenol-Codeine #3] 1 tab PO Q6HR PRN 08/11/18 [History] ipratropium-albuterol 1 neb NEB QID PRN 08/11/18 [History] potassium chloride 20 meq PO DAILY 08/11/18 [History] quetiapine [Seroquel] 50 mg PO HS 08/11/18 [History] tramadol 50 mg PO QID PRN 08/11/18 [History] - Review of Systems Constitutional: No Symptoms Reported Eyes: No Symptoms Reported ENT: No Symptoms Reported Respiratory: Cough, Shortness of Breath, Sputum, Wheezing Cardiovascular: No Symptoms Reported Genitourinary: No Symptoms Reported Musculoskeletal: Back Pain Skin: No Symptoms Reported Neurological: Weakness, Confusion - Physical Exam Vital Signs: Temperature 99.3 F Pulse Rate [Left] 99 Pulse Rate 78 Respiratory Rate 20 Blood Pressure [Left Calf] 126/56 Blood Pressure [Left Arm] 151/64 Blood Pressure [Right Calf] 168/77 Blood Pressure [Right Arm] 75/44 Blood Pressure 165/65 O2 Sat by Pulse Oximetry 98 Oriented: Person Eyes: Normal Ear: Normal Nose: Normal Throat: Normal Respiratory: RLL Diminished, LLL Diminished Cardiovascular: Normal. negative: Edema : Normal Auscultation: Bowel Sounds: Normal Palpation: Normal Tenderness: Normal Skin: Decreased [place] Musculoskeletal: Back:Thoracic, Back:Lumbar Mood Description: Calm Speech Pattern: Clear - Assessment/Plan (1) Fever Status: Acute Plan: ADMIT, ADMISSION LABS. CXR, ELECTROLYTE REPLACEMENT. VERIFY HOME MEDICATIONS. RESP THERAPY, SUPPLEMENTAL O2, FALL RISK. REPEAT AM LABS (2) Respiratory distress Status: Acute (3) Hypotension Qualifiers: Status: Resolved (4) COPD exacerbation Status: Acute (5) Congestive heart failure Qualifiers: Status: Acute (6) Generalized weakness Status: Acute - Allergies Allergies/Adverse Reactions: Allergies Allergy/AdvReac Type Severity Reaction Status Date / Time levofloxacin [From Levaquin] Allergy Verified 07/22/18 18:54
[2018-08-11] MEDS ORDERED: TYLENOL #3 TAB (W/CODEINE) PO PRN (13:08)
[2018-08-11] MEDS ORDERED: ZOFRAN TAB 4 MG PO PRN (13:17)
[2018-08-11] MEDS ORDERED: ULTRAM PO PRN (13:24)
[2018-08-11] MEDS: ARICEPT TAB 10 MG PO SCH (16:43)
[2018-08-11] MEDS: EFFEXOR XR 75 MG CAP PO SCH (16:44)
[2018-08-11] MEDS: PLAVIX PO SCH (16:44)
[2018-08-11] MEDS: CORDARONE TAB 200 MG PO SCH (16:44)
[2018-08-11] MEDS: K-DUR TAB 20 MEQ PO SCH ×2 (16:45→18:46)
[2018-08-11] MEDS: HEMOCYTE-PLUS PO SCH (16:45)
[2018-08-11] MEDS: REQUIP PO SCH ×2 (16:45→21:00)
[2018-08-11] MEDS: SINGULAIR TAB 10 MG PO SCH (16:46)
[2018-08-11] MEDS: COLACE CAP 100 MG PO SCH (20:50)
[2018-08-11] MEDS: MILK OF MAGNESIA PO SCH (20:51)
[2018-08-11] MEDS: NEURONTIN CAP 300 MG PO SCH (20:52)
[2018-08-11] MEDS: NAMENDA TAB 10 MG PO SCH (20:52)
[2018-08-11] MEDS: PEPCID TAB 20 MG PO SCH (20:52)
[2018-08-11] MEDS: PRAVACHOL PO SCH (20:53)
[2018-08-12] MEDS: DUONEB 0.5 MG/3 MG NEB SCH ×6 (01:00→20:21)
[2018-08-12] MEDS: K-DUR TAB 20 MEQ PO PRN (01:37)
[2018-08-12 04:54] LABS: BASOPHILS % (AUTO) 0.3 % (0.2-1.0); HEMATOCRIT 23.8 % (36.0-47.0); LYMPHOCYTES # (AUTO) 0.7 X10^3/uL (1.3-2.9); MEAN CORPUSCULAR HEMOGLOBIN 28.9 pg (27.0-34.0); MEAN CORPUSCULAR HGB CONC 33.7 g/dL (33.0-35.0); MEAN CORPUSCULAR VOLUME 85.8 fL (80.0-100.0); MEAN PLATELET VOLUME 9.1 fL (7.4-11.0); MONOCYTES # (AUTO) 0.7 x10^3/uL (0.3-0.8); MONOCYTES % (AUTO) 9.7 % (0.0-13.0); NEUTROPHILS # (AUTO) 5.5 x10^3/uL (2.2-4.8); PLATELET COUNT 266 X10^3/uL (150.0-450.0); RED BLOOD COUNT 2.77 X10^6/uL (3.5-5.4); RED CELL DISTRIBUTION WIDTH 15.6 % (11.6-16.5); WHITE BLOOD COUNT 6.8 X10^3/uL (3.6-10.0)
[2018-08-12 05:09] LABS: CALCIUM 8.5 mg/dL (8.5-10.1); CARBON DIOXIDE 21.4 mmol/L (21-32); CREATININE 1.31 mg/dL (0.55-1.02)
[2018-08-12] MEDS: REQUIP PO SCH ×3 (05:56→21:27)
[2018-08-12] MEDS: ZOSYN VIAL 3.375 GRAMS 3.375 G in NS 100 ML IV + SPIKE MINIBAG* 100 ML IV SCH ×3 (05:56→21:23)
[2018-08-12 09:19] LABS: BILIRUBIN,URINE NEGATIVE (NEGATIVE); BLOOD/HEMOGLOBIN,URINE 1+ (NEGATIVE); GLUCOSE, URINE NEGATIVE (NEGATIVE); KETONES,URINE NEGATIVE (NEGATIVE); LEUKOCYTE ESTERASE ,URINE 1+ (NEGATIVE); NITRITES,URINE NEGATIVE (NEGATIVE); PROTEIN,URINE 3+ (NEGATIVE); UROBILINOGEN,URINE NORMAL (NORMAL)
[2018-08-12 09:23] LABS: APPEARANCE,URINE HAZY (CLEAR); COLOR,URINE YELLOW (YELLOW)
[2018-08-12 10:02] LABS: AMORPHOUS SEDIMENT,UR 2+ /HPF (NEGATIVE); BACTERIA,URINE NEGATIVE /HPF (NEGATIVE); HYALINE CASTS, URINE RARE /LPF (NEGATIVE); RBC,URINE 0-2 /HPF (NONE SEEN); SQUAMOUS EPITHELIAL CELL,UR RARE /HPF (NEGATIVE)
[2018-08-12 10:03] LABS: MUCUS,URINE MODERATE /HPF (NEGATIVE)
[2018-08-12] MEDS: MILK OF MAGNESIA PO SCH ×2 (10:28→21:28)
[2018-08-12] MEDS: PLAVIX PO SCH (10:29)
[2018-08-12] MEDS: PEPCID TAB 20 MG PO SCH ×2 (10:30→21:27)
[2018-08-12] MEDS: ARICEPT TAB 10 MG PO SCH (10:31)
[2018-08-12] MEDS: NAMENDA TAB 10 MG PO SCH ×2 (10:31→21:28)
[2018-08-12] MEDS: CORDARONE TAB 200 MG PO SCH (10:31)
[2018-08-12] MEDS: K-DUR TAB 20 MEQ PO SCH (10:32)
[2018-08-12] MEDS: HEMOCYTE-PLUS PO SCH (10:32)
[2018-08-12] MEDS: LASIX IVP SCH ×2 (10:32→21:29)
[2018-08-12] MEDS: SINGULAIR TAB 10 MG PO SCH (10:32)
[2018-08-12] MEDS: EFFEXOR XR 75 MG CAP PO SCH (14:00)
[2018-08-12] MEDS: SOLU-Medrol 40 MG VIAL IVP SCH ×2 (16:00→22:09)
[2018-08-12] MEDS: COLACE CAP 100 MG PO SCH (21:27)
[2018-08-12] MEDS: NEURONTIN CAP 300 MG PO SCH (21:27)
[2018-08-12] MEDS: PRAVACHOL PO SCH (21:28)
[2018-08-13] MEDS: DUONEB 0.5 MG/3 MG NEB SCH ×3 (00:45→08:53)
[2018-08-13 05:21] LABS: BASOPHILS % (AUTO) 0.2 % (0.2-1.0); HEMOGLOBIN 8.5 g/dL (12.0-16.0); LYMPHOCYTES # (AUTO) 0.4 X10^3/uL (1.3-2.9); LYMPHOCYTES % (AUTO) 7.3 % (21.0-51.0); MEAN CORPUSCULAR HEMOGLOBIN 29.3 pg (27.0-34.0); MEAN CORPUSCULAR VOLUME 86.2 fL (80.0-100.0); MEAN PLATELET VOLUME 8.9 fL (7.4-11.0); MONOCYTES # (AUTO) 0.1 x10^3/uL (0.3-0.8); MONOCYTES % (AUTO) 1.8 % (0.0-13.0); NEUTROPHILS # (AUTO) 5.2 x10^3/uL (2.2-4.8); NEUTROPHILS % (AUTO) 90.7 % (42.0-75.0); PLATELET COUNT 344 X10^3/uL (150.0-450.0); RED BLOOD COUNT 2.91 X10^6/uL (3.5-5.4); RED CELL DISTRIBUTION WIDTH 15.8 % (11.6-16.5); WHITE BLOOD COUNT 5.7 X10^3/uL (3.6-10.0)
[2018-08-13 05:43] LABS: ALBUMIN 3.2 g/dL (3.4-5.0); CALCIUM 8.7 mg/dL (8.5-10.1); CARBON DIOXIDE 21.8 mmol/L (21-32); COR CA(FOR HYPOALB) 9.3 mg/dL (8.5-10.1); CREATININE 1.36 mg/dL (0.55-1.02); TOTAL PROTEIN 6.5 g/dL (6.4-8.2)
[2018-08-13 05:51] LABS: HYPOCHROMASIA SLIGHT; PLATELET MORPHOLOGY COMMENT NORMAL (NORMAL)
[2018-08-13] MEDS: ZOSYN VIAL 3.375 GRAMS 3.375 G in NS 100 ML IV + SPIKE MINIBAG* 100 ML IV SCH (06:12)
[2018-08-13] MEDS: SOLU-Medrol 40 MG VIAL IVP SCH (06:12)
[2018-08-13] MEDS: REQUIP PO SCH (06:12)
--- NOTE | 2018-08-13 06:49 | RAD ---
History: COPD and asthma and breast cancer Study: AP chest Comparison: August 11 Findings: The heart size is normal. There are cholecystectomy clips and surgical clips in the left axilla status post left mastectomy. There are mild chronic interstitial lung markings. There is no focal lung consolidation and there is no evidence for effusion. Impression: No acute disease Reported By:
[2018-08-13] MEDS ORDERED: PEPCID TAB 20 MG PO SCH (09:00)
[2018-08-13] MEDS: MILK OF MAGNESIA PO SCH (09:45)
[2018-08-13] MEDS: ARICEPT TAB 10 MG PO SCH (09:46)
[2018-08-13] MEDS: SINGULAIR TAB 10 MG PO SCH (09:46)
[2018-08-13] MEDS: K-DUR TAB 20 MEQ PO SCH (09:46)
[2018-08-13] MEDS: HEMOCYTE-PLUS PO SCH (09:46)
[2018-08-13] MEDS: NAMENDA TAB 10 MG PO SCH (09:46)
[2018-08-13] MEDS: PLAVIX PO SCH (09:46)
[2018-08-13] MEDS: LASIX IVP SCH (09:47)
[2018-08-13] MEDS: CORDARONE TAB 200 MG PO SCH (09:47)
[2018-08-13 15:43] VITALS: BP 163/71
== END 2018-08-13 11:40 | disposition hospice, home (50) ==
LOC: MED/SURG 05:01 → ER 05:01 → MED/SURG 07:46
PROVIDERS: ADMIT Internal Medicine; ATTEND Internal Medicine
DX: R06.03 Acute respiratory distress; I25.10 Atherosclerotic heart disease of native coronary artery without angina pectoris; J81.0 Acute pulmonary edema; I10 Essential (primary) hypertension; D64.89 Other specified anemias; E87.6 Hypokalemia; I95.89 Other hypotension; J44.1 Chronic obstructive pulmonary disease with (acute) exacerbation; R07.89 Other chest pain; R53.1 Weakness; R06.02 Shortness of breath; E78.2 Mixed hyperlipidemia
CPT/HCPCS: 36415; 71010; 71045; 80048; 80053; 81001; 82550; 82553; 83735; 83880; 84132; 84484; 85025; 85378; 85610; 85730; 87040; 87070; 87086; 87205; 93005; 94640; 94760; 96365; 96374; 96375; 99218; 99284; A4216; A4222; G0378; J1940; J2543; J2920; J2930; J7050; J7620

== ENCOUNTER 2018-10-17 13:39 | Inpatient (IN) ==
--- NOTE | 2018-10-17 14:41 | RAD ---
HISTORY: Syncope Study: Chest AP portable Comparison: 08/13/2018 Findings: The heart is minimally enlarged. No congestive heart failure is noted. No acute alveolar infiltrates or pleural effusions are identified. The bony thorax is unremarkable. IMPRESSION: Minimal cardiomegaly without congestive heart failure Lungs clear Reported By:
[2018-10-17 15:19] LABS: BASOPHILS # (AUTO) 0.1 X10^3/uL (0.0-0.1); EOSINOPHILS # (AUTO) 0.1 x10^3/uL (0.0-0.2); LYMPHOCYTES # (AUTO) 1.7 X10^3/uL (1.3-2.9); MONOCYTES # (AUTO) 1.5 x10^3/uL (0.3-0.8); NEUTROPHILS # (AUTO) 5.5 x10^3/uL (2.2-4.8)
[2018-10-17 15:24] LABS: EOSINOPHILS % (AUTO) 1.7 % (0.9-2.9); MEAN CORPUSCULAR HEMOGLOBIN 28.4 pg (27.0-34.0); MEAN CORPUSCULAR HGB CONC 33.3 g/dL (33.0-35.0); MEAN CORPUSCULAR VOLUME 85.4 fL (80.0-100.0); MEAN PLATELET VOLUME 9.3 fL (7.4-11.0); MONOCYTES % (AUTO) 17.2 % (0.0-13.0); NEUTROPHILS % (AUTO) 61.1 % (42.0-75.0); PLATELET COUNT 206 X10^3/uL (150.0-450.0); RED BLOOD COUNT 2.25 X10^6/uL (3.5-5.4); RED CELL DISTRIBUTION WIDTH 15.1 % (11.6-16.5); WHITE BLOOD COUNT 8.9 X10^3/uL (3.6-10.0)
[2018-10-17 15:27] LABS: HEMATOCRIT 19.2 % (36.0-47.0); HEMOGLOBIN 6.4 g/dL (12.0-16.0)
[2018-10-17 15:33] LABS: B-TYPE NATRIURETIC PEPTIDE 327 pg/mL (0-79)
[2018-10-17] MEDS ORDERED: DUONEB 0.5 MG/3 MG NEB ONE (15:34)
[2018-10-17 15:37] LABS: BLOOD UREA NITROGEN 34 mg/dL (7-18); CALCIUM 8.9 mg/dL (8.5-10.1); CARBON DIOXIDE 26.7 mmol/L (21-32); CHLORIDE 105 mmol/L (98-107); CREATININE 1.22 mg/dL (0.55-1.02); SODIUM 142 mmol/L (136-145); TROPONIN I < 0.02 ng/mL (0-1.5); eGFR NON BLACK RACES 45 (>60)
[2018-10-17 15:41] LABS: ALANINE AMINOTRANSFERASE 19 Units/L (12-78); ALBUMIN 3.4 g/dL (3.4-5.0); ALKALINE PHOSPHATASE 78 Units/L (46-116); ASPARTATE AMINO TRANSFERASE 13 Units/L (15-37); CKMB % 3.3 % (<4); CREATINE KINASE 43 Units/L (26-192); CREATINE KINASE MB 1.4 ng/mL (0-4.0); MAGNESIUM 2.3 mg/dL (1.7-2.9); TOTAL PROTEIN 7.2 g/dL (6.4-8.2)
--- NOTE | 2018-10-17 16:14 | DR.SOBA ---
HPI Time Seen Time Seen by Provider: 10/17/18 15:30 Primary Care Physician Primary Care Physician: JEANINE Crain Chief Complaint:: SHORTNESS OF BREATH AND DIZZINESS SINCE YESTERDAY. MOVEMENT MAKES IT WORSE. STATES SHE BREATHES BETTER LAYING DOWN. COUGH THAT IS PRODUCTIVE. PAIN TO CHEST WHEN COUGHING. COLOR IS PALE Source History Provided: Patient Mode of Arrival Mode of Arrival: Wheelchair Timing Onset of Chief Complaint: 10/15/18 PMH PMH Past Medical History: Yes Past Medical History: Anemia, Asthma, COPD, Coronary Artery Disease, Dyslipidemia, Hypertension and NC Past Surgical History: Yes Surgical History: Angioplasty/Stents, Hysterectomy and Mastectomy Family History History of Family Medical Conditions: Yes Family Medical History: NC and Hypertension Social History Type of Tobacco Use: Cigarettes Alcohol Use: None Do you use any recreational Drugs:: No Lives With: Family Lives Where: Home infectious screening In the last 2 months have you had wt loss of >10#?: NO Have you had fever, night sweats or hemotysis?: No Have you traveled outside the country in the last 6 months?: No Isolation: Standard ROS Review of Systems Constitutional: No Symptoms Reported Eyes: No Symptoms Reported ENTM: No Symptoms Reported Respiratoy: Short of Breath Cardiovascular: Chest Pain Gastrointestinal/Abdominal: No Symptoms Reported; negative Constipation, Diarrhea and Nausea Genitourinary: No Symptoms Reported Neurological: No Symptoms Reported Musculoskeletal: No Symptoms Reported and Chest wall Integumentary: No Symptoms Reported Hematologic/Lymphatic: No Symptoms Reported Endocrine: No Symptoms Reported Psychiatric: No Symptoms Reported All Other Systems: Reviewed and Negative PE Vital Signs Vitals: Temperature 97.0 F Pulse Rate [Apical] 64 Pulse Rate 95 Respiratory Rate 18 Blood Pressure [Left Calf] 126/56 Blood Pressure [Left Arm] 182/70 Blood Pressure [Right Calf] 168/77 Blood Pressure [Right Arm] 180/65 Blood Pressure 152/58 O2 Sat by Pulse Oximetry 100 General Limitations: No Limitations General Appearance: Alert, In No Apparent Distress and Anxious Head Head Exam: Normal Inspection, Atraumatic and Normocephalic Eyes Eye exam: Normal Appearance, PERRL and EOMI ENT ENT Exam: Normal Exam, Normal Oropharynx and Normal External Ear Exam Neck Neck Exam: Normal Inspection, Full ROM and Trachea Midline Chest Chest Inspection: Normal Inspection and Symmetric Chest Wall Rise Respiratory Respiratory Exam: Normal Lung Sounds Bilat; negative Accessory Muscle Use, Chest Wall Tenderness, Prolonged Expiratory Phase, Respiratory Distress and Stridor Respiratory Exam: Bilateral: Wheezing Cardiovascular Cardiovascular Exam: Regular Rate and Normal Rhythm Abdominal Exam Abdominal Exam: Normal Inspection, Normal Bowel Sounds and Soft Extremities Extremities Exam: Normal Inspection, Full ROM and Normal Capillary Refill; negative Edema Back Back Exam: Normal Inspection and Full ROM; negative (R) CVA Tenderness Neurologic Neurological Exam: Alert, Oriented X3 and CN II-XII Intact Psychiatric Psychiatric Exam: Normal Affect and Normal Mood Skin Skin Exam: Warm, Dry, Intact and Normal Color MDM Differential Diagnosis Differential Diagnosis: COPD, Pulmonary embolism and Respiratory Failure COURSE Treatment Treatment: NS, Oxygen pending cardiac workup Reevaluation 1st: Improved ROR Labs Reviewed Laboratory Results Reviewed?: Yes Result Diagrams: 10/17/18 15:07 10/17/18 15:07 Laboratory: WBC 8.9 X10^3/uL (3.6-10.0) 10/17/18 15:07 RBC 2.25 X10^6/uL (3.5-5.4) L 10/17/18 15:07 Hgb 6.4 g/dL (12.0-16.0) L* 10/17/18 15:07 Hct 19.2 % (36.0-47.0) L* 10/17/18 15:07 MCV 85.4 fL (80.0-100.0) 10/17/18 15:07 MCH 28.4 pg (27.0-34.0) 10/17/18 15:07 MCHC 33.3 g/dL (33.0-35.0) 10/17/18 15:07 RDW 15.1 % (11.6-16.5) 10/17/18 15:07 Plt Count 206 X10^3/uL (150.0-450.0) 10/17/18 15:07 MPV 9.3 fL (7.4-11.0) 10/17/18 15:07 Neut % (Auto) 61.1 % (42.0-75.0) 10/17/18 15:07 Lymph % (Auto) 19.0 % (21.0-51.0) L 10/17/18 15:07 [place] % (Auto) 17.2 % (0.0-13.0) H 10/17/18 15:07 Eos % (Auto) 1.7 % (0.9-2.9) 10/17/18 15:07 Baso % (Auto) 1.0 % (0.2-1.0) 10/17/18 15:07 Neut # (Auto) 5.5 x10^3/uL (2.2-4.8) H 10/17/18 15:07 Lymph # (Auto) 1.7 X10^3/uL (1.3-2.9) 10/17/18 15:07 [place] # (Auto) 1.5 x10^3/uL (0.3-0.8) H 10/17/18 15:07 Eos # (Auto) 0.1 x10^3/uL (0.0-0.2) 10/17/18 15:07 Baso # (Auto) 0.1 X10^3/uL (0.0-0.1) 10/17/18 15:07 Absolute Nucleated RBC 0.0 /100WBC 10/17/18 15:07 INR Target Range - 10/17/18 15:07 INR 0.94 (0.8-1.3) 10/17/18 15:07 APTT 23.9 SECONDS (22.9-36.5) 10/17/18 15:07 PTT Comment - 10/17/18 15:07 Sodium 142 mmol/L (136-145) 10/17/18 15:07 Corrected Sodium TNP 10/17/18 15:07 Potassium 4.4 mmol/L (3.5-5.1) 10/17/18 15:07 Chloride 105 mmol/L (98-107) 10/17/18 15:07 Carbon Dioxide 26.7 mmol/L (21-32) 10/17/18 15:07 BUN 34 mg/dL (7-18) H 10/17/18 15:07 Creatinine 1.22 mg/dL (0.55-1.02) H 10/17/18 15:07 Est GFR (MDRD) Af Amer 54 (>60) L 10/17/18 15:07 Est GFR (MDRD) Non-Af 45 (>60) L 10/17/18 15:07 Glucose 108 mg/dL (65-99) H 10/17/18 15:07 Lactic Acid 0.7 mmol/L (0.4-2.0) 10/17/18 15:17 Calcium 8.9 mg/dL (8.5-10.1) 10/17/18 15:07 Corrected Calcium TNP 10/17/18 15:07 Magnesium 2.3 mg/dL (1.7-2.9) 10/17/18 15:07 Total Bilirubin 0.10 mg/dL (0.2-1.0) L 10/17/18 15:07 AST 13 Units/L (15-37) L 10/17/18 15:07 ALT 19 Units/L (12-78) 10/17/18 15:07 Alkaline Phosphatase 78 Units/L (46-116) 10/17/18 15:07 Creatine Kinase 43 Units/L (26-192) 10/17/18 15:07 CK-MB (CK-2) 1.4 ng/mL (0-4.0) 10/17/18 15:07 CK/CKMB % Calc 3.3 % (<4) 10/17/18 15:07 Troponin I < 0.02 ng/mL (0-1.5) 10/17/18 15:07 B-Natriuretic Peptide 327 pg/mL (0-79) H 10/17/18 15:07 Total Protein 7.2 g/dL (6.4-8.2) 10/17/18 15:07 Albumin 3.4 g/dL (3.4-5.0) 10/17/18 15:07 Globulin 3.8 g/dL (2.5-4.5) 10/17/18 15:07 Albumin/Globulin Ratio 0.9 Ratio (1.1-2.1) L 10/17/18 15:07 Diagnosis Discharge Problem: Anemia Qualifiers: Anemia type: unspecified type Qualified Code(s): D64.9 - Anemia, unspecified Chronic kidney disease Qualifiers: Chronic kidney disease stage: unspecified stage Qualified Code(s): N18.9 - Chronic kidney disease, unspecified ADDITIONAL NOTES Additional Notes Additional Notes: Patient admitted to service of Dr. Cohen for further evauation and treatment
[2018-10-17] MEDS ORDERED: TYLENOL 325 MG TAB PO ONE ×2 (16:51→17:08)
[2018-10-17] MEDS ORDERED: BENADRYL INJ 50 MG VIAL IVP ONE ×2 (16:52→17:08)
[2018-10-17] MEDS: DUONEB 0.5 MG/3 MG NEB SCH ×2 (16:55→20:00)
[2018-10-17 17:52] VITALS: BMI 23.8
[2018-10-17] MEDS ORDERED: NS 100 ML IV 100 ML ONE (17:56)
[2018-10-17] MEDS ORDERED: LASIX IVP ONE (19:26)
[2018-10-17] MEDS: LASIX IVP ONE ×2 (19:30→19:33)
[2018-10-17 20:38] LABS: BILIRUBIN,URINE NEGATIVE (NEGATIVE); BLOOD/HEMOGLOBIN,URINE NEGATIVE (NEGATIVE); GLUCOSE, URINE NEGATIVE (NEGATIVE); KETONES,URINE NEGATIVE (NEGATIVE); LEUKOCYTE ESTERASE ,URINE NEGATIVE (NEGATIVE); NITRITES,URINE POSITIVE (NEGATIVE); PROTEIN,URINE NEGATIVE (NEGATIVE); UROBILINOGEN,URINE NORMAL (NORMAL)
[2018-10-17 20:56] LABS: APPEARANCE,URINE CLEAR (CLEAR); BACTERIA,URINE 1+ /HPF (NEGATIVE); COLOR,URINE PALE YELLOW (YELLOW); RBC,URINE NONE SEEN /HPF (NONE SEEN); SQUAMOUS EPITHELIAL CELL,UR NEGATIVE /HPF (NEGATIVE)
[2018-10-18] MEDS: DUONEB 0.5 MG/3 MG NEB SCH ×6 (00:57→21:17)
[2018-10-18] MEDS: PEPCID 20 MG IV PREMIX* 20 MG/50 ML BAG IV SCH ×2 (01:06→20:57)
[2018-10-18] MEDS: NS 1000 ML 1,000 ML IV SCH ×2 (01:07→17:10)
[2018-10-18 02:09] LABS: HEMATOCRIT 28.2 % (36.0-47.0); HEMOGLOBIN 9.6 g/dL (12.0-16.0)
[2018-10-18 05:20] LABS: BASOPHILS # (AUTO) 0.1 X10^3/uL (0.0-0.1); BASOPHILS % (AUTO) 0.7 % (0.2-1.0); EOSINOPHILS # (AUTO) 0.2 x10^3/uL (0.0-0.2); EOSINOPHILS % (AUTO) 2.2 % (0.9-2.9); HEMOGLOBIN 9.1 g/dL (12.0-16.0); LYMPHOCYTES # (AUTO) 2.6 X10^3/uL (1.3-2.9); MEAN CORPUSCULAR HEMOGLOBIN 29.7 pg (27.0-34.0); MEAN CORPUSCULAR HGB CONC 33.7 g/dL (33.0-35.0); MEAN CORPUSCULAR VOLUME 88.2 fL (80.0-100.0); MEAN PLATELET VOLUME 9.3 fL (7.4-11.0); MONOCYTES # (AUTO) 1.9 x10^3/uL (0.3-0.8); MONOCYTES % (AUTO) 20.8 % (0.0-13.0); NEUTROPHILS # (AUTO) 4.5 x10^3/uL (2.2-4.8); NEUTROPHILS % (AUTO) 48.3 % (42.0-75.0); PLATELET COUNT 183 X10^3/uL (150.0-450.0); RED BLOOD COUNT 3.06 X10^6/uL (3.5-5.4); RED CELL DISTRIBUTION WIDTH 14.2 % (11.6-16.5); WHITE BLOOD COUNT 9.4 X10^3/uL (3.6-10.0)
[2018-10-18 05:37] LABS: CREATINE KINASE 40 Units/L (26-192); CREATINE KINASE MB 1.2 ng/mL (0-4.0); TROPONIN I < 0.02 ng/mL (0-1.5)
[2018-10-18 05:43] LABS: ALANINE AMINOTRANSFERASE 17 Units/L (12-78); ALBUMIN 3.1 g/dL (3.4-5.0); ALKALINE PHOSPHATASE 67 Units/L (46-116); ASPARTATE AMINO TRANSFERASE 15 Units/L (15-37); BLOOD UREA NITROGEN 28 mg/dL (7-18); CALCIUM 8.2 mg/dL (8.5-10.1); CARBON DIOXIDE 24.1 mmol/L (21-32); CHLORIDE 105 mmol/L (98-107); COR CA(FOR HYPOALB) 8.9 mg/dL (8.5-10.1); CREATININE 1.23 mg/dL (0.55-1.02); SODIUM 142 mmol/L (136-145); TOTAL PROTEIN 6.4 g/dL (6.4-8.2); eGFR NON BLACK RACES 45 (>60)
--- NOTE | 2018-10-18 06:16 | RAD ---
HISTORY: Shortness of breath Study: Chest AP portable Comparison: 10/17/2018 Findings: The heart is mildly enlarged. No congestive heart failure is noted. No acute alveolar infiltrates or pleural effusions are identified. The bony thorax is unremarkable. IMPRESSION: Mild cardiomegaly without congestive heart failure No definite infiltrates Reported By:
[2018-10-18] MEDS ORDERED: POTASSIUM CHL 60 MEQ/NS 0.45% 500 ML IV PRN (06:21)
[2018-10-18] MEDS ORDERED: POTASSIUM CHLORIDE LIQ 20 MEQ UDC PO PRN (06:21)
[2018-10-18] MEDS ORDERED: MICRO K EXTEN CAP 10 MEQ PO PRN (06:21)
[2018-10-18] MEDS ORDERED: POTASSIUM CHL 40 MEQ/NS 0.45% 500 ML IV PRN (06:21)
[2018-10-18] MEDS ORDERED: K-RIDER 10 MEQ/NS 100 ML 10 MEQ/100 ML BAG IV PRN (06:21)
[2018-10-18] MEDS ORDERED: K-DUR TAB 20 MEQ PO PRN (06:21)
[2018-10-18] MEDS ORDERED: KLOR-CON PO PRN (06:21)
[2018-10-18 06:24] LABS: BAND NEUTROPHILS % 3 % (0-10); PLATELET MORPHOLOGY COMMENT NORMAL (NORMAL)
[2018-10-18] MEDS ORDERED: ZOFRAN TAB 4 MG PO PRN (08:08)
[2018-10-18] MEDS ORDERED: METHOCARBAMOL 750 MG PO PRN (08:08)
[2018-10-18] MEDS ORDERED: BUDESONIDE 0.25 MG IH SCH (09:00)
[2018-10-18] MEDS ORDERED: PATIENT'S HOME MEDICATION (Glucosamine-Chondroit-Vit C-Mn [Glucosamine Chondroitin Maxstr] PO SCH (09:00)
[2018-10-18] MEDS: APRESOLINE TAB 25 MG PO SCH ×3 (09:11→20:59)
[2018-10-18] MEDS: ARICEPT TAB 10 MG PO SCH (09:11)
[2018-10-18] MEDS: COZAAR PO SCH (09:11)
[2018-10-18] MEDS: CULTURELLE PRO-WELL PROBIOTIC CAP PO SCH (09:12)
[2018-10-18] MEDS: EFFEXOR XR 75 MG CAP PO SCH (09:12)
[2018-10-18] MEDS: LOPRESSOR TAB 25 MG PO SCH ×2 (09:12→21:00)
[2018-10-18] MEDS: NAMENDA TAB 10 MG PO SCH ×2 (09:13→20:59)
[2018-10-18] MEDS: NEURONTIN CAP 100 MG PO SCH (09:13)
[2018-10-18] MEDS: REQUIP PO SCH ×3 (09:13→21:00)
[2018-10-18] MEDS: MICRO K EXTEN CAP 10 MEQ PO SCH (09:13)
[2018-10-18] MEDS: SINGULAIR TAB 10 MG PO SCH (09:13)
[2018-10-18] MEDS: ULTRAM PO SCH ×2 (09:14→20:58)
[2018-10-18 10:20] LABS: CKMB % 2.8 % (<4); CREATINE KINASE MB 1.1 ng/mL (0-4.0); TROPONIN I 0.02 ng/mL (0-1.5)
[2018-10-18] MEDS: COLACE CAP 100 MG PO SCH ×2 (10:29→20:59)
[2018-10-18 16:51] LABS: HEMATOCRIT 27.5 % (36.0-47.0); HEMOGLOBIN 9.4 g/dL (12.0-16.0)
--- NOTE | 2018-10-18 19:47 | DR.H&P ---
H&P - History & Physical for Day of: H&P Date: 10/17/18 - Chief Complaint Chief Complaint: IS A 83 YEAR OLD PATIENT OF OURS WHO PRESENTED TO THE ER WITH COMPLAINTS OF WEAKNESS, SHORTNESS OF BREATH, AND DIZZINESS SINCE ONE DAY PRIOR. SHE REPORTS A PRODUCTIVE COUGH AND PAIN TO THE CHEST WHEN COUGHING. ON EXAMINATION, SHE IS NOTED WITH BILATERAL WHEEZING THROUGHOUT. ON ARRIVAL, VITALS WERE 97.0-95-14-95%-152/58. HER OXYGEN SATURATIONS WERE NOTED TO BE 85- 86% ON ROOM AIR, THEREFORE, SHE WAS PLACED ON OXYGEN VIA NASAL CANNULA AT 2L/MIN. LABS WERE OBTAINED. ABNORMAL LAB VALUES INCLUDE THE FOLLOWING: RBC 2.25, HGB 6.4, HCT 19.2, D-DIMER 539, BUN 34, CREATININE 1.22, GLUCOSE 108, TOTAL BILIRUBIN 0.10, AST 13, BNP 327. BLOOD CULTURES OBTAINED. EKG REVEALED SINUS RHYTHM WITH HR 64. CHEST XRAY REVEALED: MINIMAL CARDIOMEGALY WITHOUT CONGESTIVE HEART FAILURE. LUNGS CLEAR. SHE WAS GIVEN A DUONEB IN THE ER AND ADMITTED FOR FURTHER EVALUATION AND TREATMENT OF ANEMIA AND COPD EXACERBATION. WE PLAN TO OBTAIN A STOOL TO TEST FOR OCCULT BLOOD AND A URINALYSIS. WE WILL TRANSFUSE TWO UNITS OF PACKED RED BLOOD CELLS. OTHERWISE, WE PLAN TO FOLLOW UP WITH AM LABS AND 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. - Past Medical History Past Medical History: [place], Coronary Artery Disease, Hypertension, Dyslipidemia, Anemia, COPD, Asthma Additional Medical History: Breast and uterine cancer - Past Surgical History Surgical History: Hysterectomy, Mastectomy - Family History Family Medical History: Coronary Artery Disease, Hypertension - Social History Does patient currently use any type of tobacco product: No Have you used tobacco products in the last 12 months: No Type of Tobacco Use: None Does any household member use tobacco: No Alcohol Use: None Drug Use: None - Medications Home Medications: levofloxacin [From Levaquin] Allergy (Verified 10/17/18 13:50) CONTINUE taking the following medications aspirin [Aspirin Low Dose] 81 mg PO DAILY 10/17/18 [History] gabapentin [Neurontin] 100 mg PO DAILY 10/17/18 [History] hydralazine 100 mg PO TID 10/17/18 [History] losartan 50 mg PO DAILY 10/17/18 [History] methocarbamol [Robaxin-750] 750 mg PO TID PRN 10/17/18 [History] metoprolol tartrate 25 mg PO BID 10/17/18 [History] potassium chloride 10 meq PO DAILY 10/17/18 [History] - Review of Systems Constitutional: See HPI, Weakness, Malaise Eyes: No Symptoms Reported ENT: No Symptoms Reported Respiratory: Cough, Shortness of Breath, SOB with Excertion, Wheezing Cardiovascular: Chest Pain, See HPI, Light Headedness Gastrointestinal: No Symptoms Reported Genitourinary: No Symptoms Reported Musculoskeletal: No Symptoms Reported Skin: No Symptoms Reported Neurological: Weakness - Physical Exam Vital Signs: Temperature 97.8 F Pulse Rate [Apical] 66 Pulse Rate 74 Respiratory Rate 15 Blood Pressure [Left Calf] 126/56 Blood Pressure [Left Arm] 182/70 Blood Pressure [Right Calf] 168/77 Blood Pressure [Right Arm] 171/66 Blood Pressure 167/61 O2 Sat by Pulse Oximetry 100 Oriented: Normal Eyes: Normal Ear: Normal Nose: Normal Throat: Normal Respiratory: Wheezes Throughout Cardiovascular: Normal : Normal Auscultation: Bowel Sounds: Normal Palpation: Normal Tenderness: Normal Skin: Normal Musculoskeletal: Normal Psychiatric: Normal Mood Description: Calm Affect: Normal Speech Pattern: Clear - Assessment/Plan (1) Anemia Qualifiers: Anemia type: unspecified type Qualified Code(s): D64.9 - Anemia, unspecified Status: Acute Plan: TRANSFUSE 2 UNITS PRBC, 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 (2) COPD exacerbation Status: Acute Plan: RESPIRATORY TX, SUPPLEMENTAL OXYGEN, 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 - Allergies Allergies/Adverse Reactions: Allergies Allergy/AdvReac Type Severity Reaction Status Date / Time levofloxacin [From Levaquin] Allergy Verified 10/17/18 13:50
[2018-10-18] MEDS ORDERED: BUTT CREAM (COMPOUND) TOP PRN (20:39)
[2018-10-18] MEDS: NEURONTIN CAP 300 MG PO SCH (20:59)
[2018-10-18] MEDS: PRAVACHOL PO SCH (21:02)
[2018-10-18] MEDS: PULMICORT NEB TX 0.5 MG NEB SCH (21:20)
[2018-10-18] MEDS: INVANZ INJ 1 GM VIAL 1 GM in NS 100 ML IV + SPIKE MINIBAG* 100 ML IV SCH (22:01)
[2018-10-18] MEDS: RESTORIL CAP 15 MG PO PRN (22:05)
[2018-10-19] MEDS: DUONEB 0.5 MG/3 MG NEB SCH ×6 (01:09→21:22)
[2018-10-19 05:38] LABS: BASOPHILS # (AUTO) 0.1 X10^3/uL (0.0-0.1); BASOPHILS % (AUTO) 0.7 % (0.2-1.0); EOSINOPHILS # (AUTO) 0.3 x10^3/uL (0.0-0.2); EOSINOPHILS % (AUTO) 3.2 % (0.9-2.9); HEMATOCRIT 25.1 % (36.0-47.0); HEMOGLOBIN 8.6 g/dL (12.0-16.0); LYMPHOCYTES # (AUTO) 2.1 X10^3/uL (1.3-2.9); LYMPHOCYTES % (AUTO) 23.2 % (21.0-51.0); MEAN CORPUSCULAR HEMOGLOBIN 30.4 pg (27.0-34.0); MEAN CORPUSCULAR HGB CONC 34.4 g/dL (33.0-35.0); MEAN CORPUSCULAR VOLUME 88.4 fL (80.0-100.0); MEAN PLATELET VOLUME 9.3 fL (7.4-11.0); MONOCYTES # (AUTO) 1.8 x10^3/uL (0.3-0.8); MONOCYTES % (AUTO) 20.2 % (0.0-13.0); NEUTROPHILS # (AUTO) 4.8 x10^3/uL (2.2-4.8); NEUTROPHILS % (AUTO) 52.7 % (42.0-75.0); PLATELET COUNT 205 X10^3/uL (150.0-450.0); RED BLOOD COUNT 2.84 X10^6/uL (3.5-5.4); RED CELL DISTRIBUTION WIDTH 14.8 % (11.6-16.5)
[2018-10-19 05:48] LABS: ALANINE AMINOTRANSFERASE 17 Units/L (12-78); ALBUMIN 2.8 g/dL (3.4-5.0); ALKALINE PHOSPHATASE 64 Units/L (46-116); ASPARTATE AMINO TRANSFERASE 16 Units/L (15-37); BLOOD UREA NITROGEN 18 mg/dL (7-18); CALCIUM 8.4 mg/dL (8.5-10.1); CARBON DIOXIDE 25.2 mmol/L (21-32); CHLORIDE 109 mmol/L (98-107); COR CA(FOR HYPOALB) 9.4 mg/dL (8.5-10.1); CREATININE 1.08 mg/dL (0.55-1.02); SODIUM 142 mmol/L (136-145); TOTAL PROTEIN 5.8 g/dL (6.4-8.2); eGFR NON BLACK RACES 52 (>60)
--- NOTE | 2018-10-19 06:11 | RAD ---
HISTORY: Shortness of breath Study: Chest AP portable Comparison: 10/18/2018 Findings: The heart is upper limits normal in size. No congestive heart failure is noted. No acute alveolar infiltrates or pleural effusions are identified. The bony thorax is unremarkable. IMPRESSION: No significant abnormality identified Reported By:
[2018-10-19 06:23] LABS: BAND NEUTROPHILS % 3 % (0-10)
[2018-10-19 06:24] LABS: PLATELET MORPHOLOGY COMMENT NORMAL (NORMAL)
[2018-10-19] MEDS: REQUIP PO SCH ×3 (06:32→21:36)
[2018-10-19] MEDS: APRESOLINE TAB 25 MG PO SCH ×3 (06:32→21:36)
[2018-10-19] MEDS: INVANZ INJ 1 GM VIAL 1 GM in NS 100 ML IV + SPIKE MINIBAG* 100 ML IV SCH (08:43)
[2018-10-19] MEDS: SINGULAIR TAB 10 MG PO SCH (08:43)
[2018-10-19] MEDS: ARICEPT TAB 10 MG PO SCH (08:43)
[2018-10-19] MEDS: NEURONTIN CAP 100 MG PO SCH (08:43)
[2018-10-19] MEDS: COZAAR PO SCH (08:43)
[2018-10-19] MEDS: LOPRESSOR TAB 25 MG PO SCH ×2 (08:43→21:39)
[2018-10-19] MEDS: EFFEXOR XR 75 MG CAP PO SCH (08:43)
[2018-10-19] MEDS: NAMENDA TAB 10 MG PO SCH ×2 (08:43→21:37)
[2018-10-19] MEDS: MICRO K EXTEN CAP 10 MEQ PO SCH (08:44)
[2018-10-19] MEDS: ULTRAM PO SCH ×2 (08:44→21:36)
[2018-10-19] MEDS: CULTURELLE PRO-WELL PROBIOTIC CAP PO SCH (08:49)
[2018-10-19] MEDS: PULMICORT NEB TX 0.5 MG NEB SCH ×2 (09:44→21:22)
[2018-10-19 17:03] LABS: HEMATOCRIT 27.9 % (36.0-47.0); HEMOGLOBIN 9.2 g/dL (12.0-16.0)
[2018-10-19] MEDS: NS 1000 ML 1,000 ML IV SCH (17:35)
--- NOTE | 2018-10-19 18:06 | PCM.PROG ---
Progress Note - Progress Note for Day of Date of Exam: 10/18/18 - Subjective Subjective: WAS ADMITTED FOR ANEMIA AND COPD EXACERBATION. SHE RECEIVED TWO UNITS OF PACKED RED BLOOD CELLS ON ADMISSION. TODAY, SHE IS ALERT AND ORIENTED, LYING IN BED ON MORNING ROUNDS. SHE CONTINUES WITH WEAKNESS, SHORTNESS OF BREATH, AND COUGH, BUT REPORTS SLIGHT IMPROVEMENT SINCE YESTERDAY. ON EXAMINATION, HEART IS REGULAR IN RATE AND RHYTHM. BILATERAL LUNGS ARE NOTED WITH DIMINISHED LUNG SOUNDS THROUGHOUT. ABDOMEN IS ROUND, SOFT, AND NON-TENDER WITH NORMAL BOWEL SOUNDS NOTED IN ALL QUADRANTS. HER VITALS THIS MORNING ARE 97.2-70-23-96%-193/73. LABS WERE OBTAINED. ABNORMAL LAB VALUES INCLUDE THE FOLLOWING: RBC 2.84, HGB 8.6, HCT 25.1, BUN 28, CREATININE 1.23, CALCIUM 8.2, ALBUMIN 3.1. A URINALYSIS WAS OBTAINED LAST NIGHT. IT REVEALED: WBC 3-5, BACTERIA 1+, NITRITES POSITIVE. STOOL POSITIVE FOR OCCULT BLOOD. A CHEST XRAY WAS OBTAINED TODAY AND REVEALED: Mild cardiomegaly without congestive heart failure. No definite infiltrates. SHE IS CURRENTLY RECEIVING IV HYDRATION, RESPIRATORY TREATMENTS, AND PEPCID IV. TODAY, WE WILL START INVANZ 1GM IV DAILY AND CONSULT GASTROENTEROLOGY. OTHERWISE, WE WILL FOLLOW UP WITH AM LABS AND 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. - Past Medical Family Social History Past Med/Fam/Surg Hx: No changes since H&P Allergies: Allergies levofloxacin [From Levaquin] Allergy (Verified 10/17/18 13:50) - Review of Systems ROS: No change since H&P - Vital Signs and I&O's Vital Signs: Temperature 97.7 F Pulse Rate [Apical] 66 Pulse Rate 71 Respiratory Rate 20 Blood Pressure [Left Calf] 126/56 Blood Pressure [Left Arm] 182/70 Blood Pressure [Right Calf] 168/77 Blood Pressure [Right Arm] 171/66 Blood Pressure 166/70 O2 Sat by Pulse Oximetry 99 Intake and Output: Intake & Output 10/17/18 10/18/18 10/19/18 10/20/18 11:59 11:59 11:59 11:59 Intake Total 1260 / 1260 1240 / 1240 Output Total 200 / 200 Balance 1260 / 1260 1040 / 1040 - Physical Exam Oriented: Normal Eyes: Normal Ear: Normal Nose: Normal Throat: Normal Respiratory: Diminished Cardiovascular: Normal : Normal Auscultation: Bowel Sounds: Normal Tenderness: Normal Skin: Normal Musculoskeletal: Normal Psychiatric: Normal Mood Description: Calm Affect: Normal Speech Pattern: Clear, Appropriate - Laboratory and Diagnostics Result Diagrams: 10/19/18 16:46 10/19/18 04:33 Labs: 10/17/18 20:28 Urine,Clean Catch Urine Culture - Final Klebsiella Pneumoniae 10/17/18 15:31 Blood Blood Culture - Preliminary 10/17/18 15:07 Blood Blood Culture - Preliminary Laboratory WBC 9.0 X10^3/uL (3.6-10.0) 10/19/18 04:33 RBC 2.84 X10^6/uL (3.5-5.4) L 10/19/18 04:33 Hgb 9.2 g/dL (12.0-16.0) L 10/19/18 16:46 Hct 27.9 % (36.0-47.0) L 10/19/18 16:46 MCV 88.4 fL (80.0-100.0) 10/19/18 04:33 MCH 30.4 pg (27.0-34.0) 10/19/18 04:33 MCHC 34.4 g/dL (33.0-35.0) 10/19/18 04:33 RDW 14.8 % (11.6-16.5) 10/19/18 04:33 Plt Count 205 X10^3/uL (150.0-450.0) 10/19/18 04:33 Plt Count Comment Adequate (ADEQUATE) 10/19/18 04:33 MPV 9.3 fL (7.4-11.0) 10/19/18 04:33 Neut % (Auto) 52.7 % (42.0-75.0) 10/19/18 04:33 Lymph % (Auto) 23.2 % (21.0-51.0) 10/19/18 04:33 [place] % (Auto) 20.2 % (0.0-13.0) H 10/19/18 04:33 Eos % (Auto) 3.2 % (0.9-2.9) H 10/19/18 04:33 Baso % (Auto) 0.7 % (0.2-1.0) 10/19/18 04:33 Neut # (Auto) 4.8 x10^3/uL (2.2-4.8) 10/19/18 04:33 Lymph # (Auto) 2.1 X10^3/uL (1.3-2.9) 10/19/18 04:33 [place] # (Auto) 1.8 x10^3/uL (0.3-0.8) H 10/19/18 04:33 Eos # (Auto) 0.3 x10^3/uL (0.0-0.2) H 10/19/18 04:33 Baso # (Auto) 0.1 X10^3/uL (0.0-0.1) 10/19/18 04:33 Absolute Nucleated RBC 0.1 /100WBC 10/19/18 04:33 Total Counted 100 10/19/18 04:33 Neutrophils % (Manual) 58 % (39-76) 10/19/18 04:33 Band Neutrophils % 3 % (0-10) 10/19/18 04:33 Lymphocytes % (Manual) 18 % (13-43) 10/19/18 04:33 Monocytes % (Manual) 18 % (4-9) H 10/19/18 04:33 Eosinophils % (Manual) 3 % (0-6) 10/19/18 04:33 Plt Morphology Comment Normal (NORMAL) 10/19/18 04:33 RBC Morphology Normal (NORMAL) 10/19/18 04:33 INR Target Range - 10/17/18 15:07 INR 0.94 (0.8-1.3) 10/17/18 15:07 APTT 23.9 SECONDS (22.9-36.5) 10/17/18 15:07 PTT Comment - 10/17/18 15:07 D-Dimer 539 ng/mL (0-400) H* 10/17/18 15:07 Sodium 142 mmol/L (136-145) 10/19/18 04:33 Corrected Sodium TNP 10/19/18 04:33 Potassium 4.3 mmol/L (3.5-5.1) 10/19/18 04:33 Chloride 109 mmol/L (98-107) H 10/19/18 04:33 Carbon Dioxide 25.2 mmol/L (21-32) 10/19/18 04:33 BUN 18 mg/dL (7-18) 10/19/18 04:33 Creatinine 1.08 mg/dL (0.55-1.02) H 10/19/18 04:33 Est GFR (MDRD) Af Amer > 60 (>60) 10/19/18 04:33 Est GFR (MDRD) Non-Af 52 (>60) L 10/19/18 04:33 Glucose 94 mg/dL (65-99) 10/19/18 04:33 Lactic Acid 0.7 mmol/L (0.4-2.0) 10/17/18 15:17 Calcium 8.4 mg/dL (8.5-10.1) L 10/19/18 04:33 Corrected Calcium 9.4 mg/dL (8.5-10.1) 10/19/18 04:33 Magnesium 2.1 mg/dL (1.7-2.9) 10/18/18 04:00 Total Bilirubin 0.10 mg/dL (0.2-1.0) L 10/19/18 04:33 AST 16 Units/L (15-37) 10/19/18 04:33 ALT 17 Units/L (12-78) 10/19/18 04:33 Alkaline Phosphatase 64 Units/L (46-116) 10/19/18 04:33 Creatine Kinase 40 Units/L (26-192) 10/18/18 09:50 CK-MB (CK-2) 1.1 ng/mL (0-4.0) 10/18/18 09:50 CK/CKMB % Calc 2.8 % (<4) 10/18/18 09:50 Troponin I 0.02 ng/mL (0-1.5) 10/18/18 09:50 B-Natriuretic Peptide 327 pg/mL (0-79) H 10/17/18 15:07 Total Protein 5.8 g/dL (6.4-8.2) L 10/19/18 04:33 Albumin 2.8 g/dL (3.4-5.0) L 10/19/18 04:33 Globulin 3.0 g/dL (2.5-4.5) 10/19/18 04:33 Albumin/Globulin Ratio 0.9 Ratio (1.1-2.1) L 10/19/18 04:33 Specimen Type Clean catch urine 10/17/18 20:28 Urine Color Pale yellow (YELLOW) 10/17/18 20:28 Urine Appearance Clear (CLEAR) 10/17/18 20:28 Urine pH 6.0 (5.0 - 8.0) 10/17/18 20:28 Ur Specific [place] 1.010 (1.000-1.030) 10/17/18 20:28 Urine Protein Negative (NEGATIVE) 10/17/18 20:28 Urine Glucose (UA) Negative (NEGATIVE) 10/17/18 20:28 Urine Ketones Negative (NEGATIVE) 10/17/18 20: Urine Occult Blood Negative (NEGATIVE) 10/17/18 20: Urine Nitrite Positive (NEGATIVE) 10/17/18 20: Urine Bilirubin Negative (NEGATIVE) 10/17/18 20: Urine Urobilinogen Normal (NORMAL) 10/17/18 20:28 Ur Leukocyte Esterase Negative (NEGATIVE) 10/17/18 20:28 Urine RBC None seen /HPF (NONE SEEN) 10/17/18 20:28 Urine WBC 3-5 /HPF (NONE SEEN) 10/17/18 20:28 Ur Squamous Epith Cells Negative /HPF (NEGATIVE) 10/17/18 20:28 Urine Bacteria 1+ /HPF (NEGATIVE) 10/17/18 20:28 Ur Culture Indicated? Yes/culture set up 10/17/18 20:28 Stool Description 10g,black,liquid 10/17/18 21:45 Stl Occult Blood (IFOB) Positive (NEGATIVE) A 10/17/18 21:45 Blood Type A POSITIVE 10/17/18 15:31 Antibody Screen Negative 10/17/18 15:31 Crossmatch See Detail 10/17/18 15:31 - Plan (1) Anemia Status: Acute Qualifiers: Anemia type: unspecified type Qualified Code(s): D64.9 - Anemia, unspecified Plan: 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 (2) COPD exacerbation Status: Acute Plan: RESPIRATORY TX, SUPPLEMENTAL OXYGEN, 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 (3) Urinary tract infection Status: Acute Qualifiers: Urinary tract infection type: acute cystitis Hematuria presence: with hematuria Qualified Code(s): N30.01 - Acute cystitis with hematuria Plan: INVANZ 1G IV DAILY, 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
--- NOTE | 2018-10-19 18:32 | PCM.PROG ---
Progress Note - Progress Note for Day of Date of Exam: 10/19/18 - Subjective Subjective: WAS ADMITTED FOR ANEMIA AND COPD EXACERBATION. SHE RECEIVED TWO UNITS OF PACKED RED BLOOD CELLS ON ADMISSION. TODAY, SHE IS ALERT AND ORIENTED, LYING IN BED ON MORNING ROUNDS. SHE CONTINUES WITH WEAKNESS, SHORTNESS OF BREATH, AND COUGH, BUT CONTINUES TO REPORT IMPROVEMENT. ON EXAMIN ATION, HEART IS REGULAR IN RATE AND RHYTHM. BILATERAL LUNGS ARE NOTED WITH DIMINISHED LUNG SOUNDS THROUGHOUT. ABDOMEN IS ROUND, SOFT, AND NON-TENDER WITH NORMAL BOWEL SOUNDS NOTED IN ALL QUADRANTS. HER VITALS THIS MORNING ARE 97.9-67-16-99%-185/74. LABS WERE OBTAINED. ABNORMAL LAB VALUES INCLUDE THE FOLLOWING: RBC 2.84, HGB 8.6, HCT 25.1, CHLORIDE 109, CREATININE 1.08, CALCIUM 8.4, TOTAL BILI 0.10, TOTAL PROTEIN 5.8, ALBUMIN 2.8. STOOL POSITIVE FOR OCCULT BLOOD. URINE CULTURE REVEALED GROWTH OF KLEBIELLA PNEUMONIAE. A CHEST XRAY WAS OBTAINED TODAY AND REVEALED: No significant abnormality identified. SHE IS CURRENTLY RECEIVING IV HYDRATION, INVANZ IV, RESPIRATORY TREATMENTS, AND PEPCID IV. WE WILL CONTINUE WITH CURRENT PLAN OF CARE TODAY. OTHERWISE, WE WILL FOLLOW UP WITH AM LABS AND 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. - Past Medical Family Social History Past Med/Fam/Surg Hx: No changes since H&P Allergies: Allergies levofloxacin [From Levaquin] Allergy (Verified 10/17/18 13:50) - Review of Systems ROS: No change since H&P - Vital Signs and I&O's Vital Signs: Temperature 97.7 F Pulse Rate [Apical] 66 Pulse Rate 75 Respiratory Rate 24 Blood Pressure [Left Calf] 126/56 Blood Pressure [Left Arm] 182/70 Blood Pressure [Right Calf] 168/77 Blood Pressure [Right Arm] 171/66 Blood Pressure 156/61 O2 Sat by Pulse Oximetry 98 Intake and Output: Intake & Output 10/17/18 10/18/18 10/19/18 10/20/18 11:59 11:59 11:59 11:59 Intake Total 1260 / 1260 1240 / 1240 1064 / 1064 Output Total 200 / 200 Balance 1260 / 1260 1040 / 1040 1064 / 1064 - Physical Exam Oriented: Normal Eyes: Normal Ear: Normal Nose: Normal Throat: Normal Respiratory: Diminished Cardiovascular: Normal : Normal Auscultation: Bowel Sounds: Normal Tenderness: Normal Skin: Normal Musculoskeletal: Normal Psychiatric: Normal Mood Description: Calm Affect: Normal Speech Pattern: Clear, Appropriate - Laboratory and Diagnostics Result Diagrams: 10/19/18 16:46 10/19/18 04:33 Labs: 10/17/18 20:28 Urine,Clean Catch Urine Culture - Final Klebsiella Pneumoniae 10/17/18 15:31 Blood Blood Culture - Preliminary 10/17/18 15:07 Blood Blood Culture - Preliminary Laboratory WBC 9.0 X10^3/uL (3.6-10.0) 10/19/18 04:33 RBC 2.84 X10^6/uL (3.5-5.4) L 10/19/18 04:33 Hgb 9.2 g/dL (12.0-16.0) L 10/19/18 16:46 Hct 27.9 % (36.0-47.0) L 10/19/18 16:46 MCV 88.4 fL (80.0-100.0) 10/19/18 04:33 MCH 30.4 pg (27.0-34.0) 10/19/18 04:33 MCHC 34.4 g/dL (33.0-35.0) 10/19/18 04:33 RDW 14.8 % (11.6-16.5) 10/19/18 04:33 Plt Count 205 X10^3/uL (150.0-450.0) 10/19/18 04:33 Plt Count Comment Adequate (ADEQUATE) 10/19/18 04:33 MPV 9.3 fL (7.4-11.0) 10/19/18 04:33 Neut % (Auto) 52.7 % (42.0-75.0) 10/19/18 04:33 Lymph % (Auto) 23.2 % (21.0-51.0) 10/19/18 04:33 [place] % (Auto) 20.2 % (0.0-13.0) H 10/19/18 04:33 Eos % (Auto) 3.2 % (0.9-2.9) H 10/19/18 04:33 Baso % (Auto) 0.7 % (0.2-1.0) 10/19/18 04:33 Neut # (Auto) 4.8 x10^3/uL (2.2-4.8) 10/19/18 04:33 Lymph # (Auto) 2.1 X10^3/uL (1.3-2.9) 10/19/18 04:33 [place] # (Auto) 1.8 x10^3/uL (0.3-0.8) H 10/19/18 04:33 Eos # (Auto) 0.3 x10^3/uL (0.0-0.2) H 10/19/18 04:33 Baso # (Auto) 0.1 X10^3/uL (0.0-0.1) 10/19/18 04:33 Absolute Nucleated RBC 0.1 /100WBC 10/19/18 04:33 Total Counted 100 10/19/18 04:33 Neutrophils % (Manual) 58 % (39-76) 10/19/18 04:33 Band Neutrophils % 3 % (0-10) 10/19/18 04:33 Lymphocytes % (Manual) 18 % (13-43) 10/19/18 04:33 Monocytes % (Manual) 18 % (4-9) H 10/19/18 04:33 Eosinophils % (Manual) 3 % (0-6) 10/19/18 04:33 Plt Morphology Comment Normal (NORMAL) 10/19/18 04:33 RBC Morphology Normal (NORMAL) 10/19/18 04:33 INR Target Range - 10/17/18 15:07 INR 0.94 (0.8-1.3) 10/17/18 15:07 APTT 23.9 SECONDS (22.9-36.5) 10/17/18 15:07 PTT Comment - 10/17/18 15:07 D-Dimer 539 ng/mL (0-400) H* 10/17/18 15:07 Sodium 142 mmol/L (136-145) 10/19/18 04:33 Corrected Sodium TNP 10/19/18 04:33 Potassium 4.3 mmol/L (3.5-5.1) 10/19/18 04:33 Chloride 109 mmol/L (98-107) H 10/19/18 04:33 Carbon Dioxide 25.2 mmol/L (21-32) 10/19/18 04:33 BUN 18 mg/dL (7-18) 10/19/18 04:33 Creatinine 1.08 mg/dL (0.55-1.02) H 10/19/18 04:33 Est GFR (MDRD) Af Amer > 60 (>60) 10/19/18 04:33 Est GFR (MDRD) Non-Af 52 (>60) L 10/19/18 04:33 Glucose 94 mg/dL (65-99) 10/19/18 04:33 Lactic Acid 0.7 mmol/L (0.4-2.0) 10/17/18 15:17 Calcium 8.4 mg/dL (8.5-10.1) L 10/19/18 04:33 Corrected Calcium 9.4 mg/dL (8.5-10.1) 10/19/18 04:33 Magnesium 2.1 mg/dL (1.7-2.9) 10/18/18 04:00 Total Bilirubin 0.10 mg/dL (0.2-1.0) L 10/19/18 04:33 AST 16 Units/L (15-37) 10/19/18 04:33 ALT 17 Units/L (12-78) 10/19/18 04:33 Alkaline Phosphatase 64 Units/L (46-116) 10/19/18 04:33 Creatine Kinase 40 Units/L (26-192) 10/18/18 09:50 CK-MB (CK-2) 1.1 ng/mL (0-4.0) 10/18/18 09:50 CK/CKMB % Calc 2.8 % (<4) 10/18/18 09:50 Troponin I 0.02 ng/mL (0-1.5) 10/18/18 09:50 B-Natriuretic Peptide 327 pg/mL (0-79) H 10/17/18 15:07 Total Protein 5.8 g/dL (6.4-8.2) L 10/19/18 04:33 Albumin 2.8 g/dL (3.4-5.0) L 10/19/18 04:33 Globulin 3.0 g/dL (2.5-4.5) 10/19/18 04:33 Albumin/Globulin Ratio 0.9 Ratio (1.1-2.1) L 10/19/18 04:33 Specimen Type Clean catch urine 10/17/18 20:28 Urine Color Pale yellow (YELLOW) 10/17/18 20:28 Urine Appearance Clear (CLEAR) 10/17/18 20: Urine pH 6.0 (5.0 - 8.0) 10/17/18 20:28 Ur Specific [place] 1.010 (1.000-1.030) 10/17/18 20:28 Urine Protein Negative (NEGATIVE) 10/17/18 20:28 Urine Glucose (UA) Negative (NEGATIVE) 10/17/18 20:28 Urine Ketones Negative (NEGATIVE) 10/17/18 20: Urine Occult Blood Negative (NEGATIVE) 10/17/18 20: Urine Nitrite Positive (NEGATIVE) 10/17/18 20: Urine Bilirubin Negative (NEGATIVE) 10/17/18 20: Urine Urobilinogen Normal (NORMAL) 10/17/18 20:28 Ur Leukocyte Esterase Negative (NEGATIVE) 10/17/18 20:28 Urine RBC None seen /HPF (NONE SEEN) 10/17/18 20:28 Urine WBC 3-5 /HPF (NONE SEEN) 10/17/18 20:28 Ur Squamous Epith Cells Negative /HPF (NEGATIVE) 10/17/18 20:28 Urine Bacteria 1+ /HPF (NEGATIVE) 10/17/18 20:28 Ur Culture Indicated? Yes/culture set up 10/17/18 20:28 Stool Description 10g,black,liquid 10/17/18 21:45 Stl Occult Blood (IFOB) Positive (NEGATIVE) A 10/17/18 21:45 Blood Type A POSITIVE 10/17/18 15:31 Antibody Screen Negative 10/17/18 15:31 Crossmatch See Detail 10/17/18 15:31 - Plan (1) Anemia Status: Acute Qualifiers: Anemia type: unspecified type Qualified Code(s): D64.9 - Anemia, unspecified Plan: 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 (2) COPD exacerbation Status: Acute Plan: RESPIRATORY TX, SUPPLEMENTAL OXYGEN, 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 (3) Urinary tract infection Status: Acute Qualifiers: Urinary tract infection type: acute cystitis Hematuria presence: with hematuria Qualified Code(s): N30.01 - Acute cystitis with hematuria Plan: INVANZ 1G IV DAILY, 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
[2018-10-19] MEDS: RESTORIL CAP 15 MG PO PRN (21:36)
[2018-10-19] MEDS: COLACE CAP 100 MG PO SCH (21:36)
[2018-10-19] MEDS: PRAVACHOL PO SCH (21:36)
[2018-10-19] MEDS: NEURONTIN CAP 300 MG PO SCH (21:36)
[2018-10-19] MEDS: PEPCID 20 MG IV PREMIX* 20 MG/50 ML BAG IV SCH (21:37)
[2018-10-20] MEDS: DUONEB 0.5 MG/3 MG NEB SCH ×6 (02:02→21:31)
[2018-10-20] MEDS: REQUIP PO SCH ×3 (05:22→22:15)
[2018-10-20] MEDS: NS 1000 ML 1,000 ML IV SCH ×2 (05:22→18:29)
[2018-10-20] MEDS: APRESOLINE TAB 25 MG PO SCH ×3 (05:22→22:15)
[2018-10-20 06:32] LABS: BASOPHILS # (AUTO) 0.1 X10^3/uL (0.0-0.1); BASOPHILS % (AUTO) 0.8 % (0.2-1.0); EOSINOPHILS # (AUTO) 0.3 x10^3/uL (0.0-0.2); EOSINOPHILS % (AUTO) 3.1 % (0.9-2.9); HEMATOCRIT 26.1 % (36.0-47.0); HEMOGLOBIN 8.8 g/dL (12.0-16.0); LYMPHOCYTES # (AUTO) 1.9 X10^3/uL (1.3-2.9); LYMPHOCYTES % (AUTO) 22.6 % (21.0-51.0); MEAN CORPUSCULAR HEMOGLOBIN 29.9 pg (27.0-34.0); MEAN CORPUSCULAR HGB CONC 33.8 g/dL (33.0-35.0); MEAN CORPUSCULAR VOLUME 88.5 fL (80.0-100.0); MEAN PLATELET VOLUME 9.3 fL (7.4-11.0); MONOCYTES # (AUTO) 1.3 x10^3/uL (0.3-0.8); MONOCYTES % (AUTO) 15.6 % (0.0-13.0); NEUTROPHILS % (AUTO) 57.9 % (42.0-75.0); PLATELET COUNT 211 X10^3/uL (150.0-450.0); RED BLOOD COUNT 2.95 X10^6/uL (3.5-5.4); RED CELL DISTRIBUTION WIDTH 14.9 % (11.6-16.5); WHITE BLOOD COUNT 8.6 X10^3/uL (3.6-10.0)
[2018-10-20 06:48] LABS: ALANINE AMINOTRANSFERASE 18 Units/L (12-78); ALBUMIN 2.8 g/dL (3.4-5.0); ALKALINE PHOSPHATASE 71 Units/L (46-116); ASPARTATE AMINO TRANSFERASE 14 Units/L (15-37); BLOOD UREA NITROGEN 12 mg/dL (7-18); CALCIUM 8.5 mg/dL (8.5-10.1); CARBON DIOXIDE 25.1 mmol/L (21-32); CHLORIDE 108 mmol/L (98-107); COR CA(FOR HYPOALB) 9.5 mg/dL (8.5-10.1); CREATININE 1.03 mg/dL (0.55-1.02); SODIUM 143 mmol/L (136-145); eGFR NON BLACK RACES 55 (>60)
--- NOTE | 2018-10-20 07:33 | RAD ---
Examination: Portable AP chest History: Fall, syncope Comparison 10/19/2018 Findings: Continued normal heart size. Diffuse interstitial pulmonary prominence may be chronic. Surgical clips left axilla. No developing consolidation or pleural fluid. Impression: No interval change or new abnormality demonstrated. Reported By:
[2018-10-20 07:37] LABS: BAND NEUTROPHILS % 5 % (0-10); BASOPHILS % (MANUAL) 1 % (0-1); PLATELET MORPHOLOGY COMMENT NORMAL (NORMAL)
[2018-10-20] MEDS: COZAAR PO SCH (09:24)
[2018-10-20] MEDS: ARICEPT TAB 10 MG PO SCH (09:24)
[2018-10-20] MEDS: CULTURELLE PRO-WELL PROBIOTIC CAP PO SCH (09:25)
[2018-10-20] MEDS: EFFEXOR XR 75 MG CAP PO SCH (09:25)
[2018-10-20] MEDS: LOPRESSOR TAB 25 MG PO SCH ×2 (09:26→22:13)
[2018-10-20] MEDS: INVANZ INJ 1 GM VIAL 1 GM in NS 100 ML IV + SPIKE MINIBAG* 100 ML IV SCH (09:26)
[2018-10-20] MEDS: MICRO K EXTEN CAP 10 MEQ PO SCH (09:27)
[2018-10-20] MEDS: NAMENDA TAB 10 MG PO SCH ×2 (09:27→22:13)
[2018-10-20] MEDS: ULTRAM PO SCH ×2 (09:28→22:14)
[2018-10-20] MEDS: NEURONTIN CAP 100 MG PO SCH (09:29)
[2018-10-20] MEDS: SINGULAIR TAB 10 MG PO SCH (09:29)
[2018-10-20] MEDS: PULMICORT NEB TX 0.5 MG NEB SCH ×2 (09:33→21:31)
[2018-10-20] MEDS: NEURONTIN CAP 300 MG PO SCH (22:13)
[2018-10-20] MEDS: PEPCID 20 MG IV PREMIX* 20 MG/50 ML BAG IV SCH (22:13)
[2018-10-20] MEDS: COLACE CAP 100 MG PO SCH (22:13)
[2018-10-20] MEDS: RESTORIL CAP 15 MG PO PRN (22:13)
[2018-10-20] MEDS: PRAVACHOL PO SCH (22:14)
[2018-10-21] MEDS: DUONEB 0.5 MG/3 MG NEB SCH ×6 (00:40→20:27)
[2018-10-21 05:29] LABS: BASOPHILS # (AUTO) 0.1 X10^3/uL (0.0-0.1); BASOPHILS % (AUTO) 0.8 % (0.2-1.0); EOSINOPHILS # (AUTO) 0.2 x10^3/uL (0.0-0.2); EOSINOPHILS % (AUTO) 3.3 % (0.9-2.9); HEMATOCRIT 25.6 % (36.0-47.0); HEMOGLOBIN 8.5 g/dL (12.0-16.0); LYMPHOCYTES # (AUTO) 1.6 X10^3/uL (1.3-2.9); LYMPHOCYTES % (AUTO) 22.3 % (21.0-51.0); MEAN CORPUSCULAR HEMOGLOBIN 29.9 pg (27.0-34.0); MEAN CORPUSCULAR HGB CONC 33.2 g/dL (33.0-35.0); MEAN PLATELET VOLUME 8.8 fL (7.4-11.0); MONOCYTES # (AUTO) 1.1 x10^3/uL (0.3-0.8); MONOCYTES % (AUTO) 15.3 % (0.0-13.0); NEUTROPHILS # (AUTO) 4.2 x10^3/uL (2.2-4.8); NEUTROPHILS % (AUTO) 58.3 % (42.0-75.0); PLATELET COUNT 223 X10^3/uL (150.0-450.0); RED BLOOD COUNT 2.84 X10^6/uL (3.5-5.4); RED CELL DISTRIBUTION WIDTH 15.3 % (11.6-16.5); WHITE BLOOD COUNT 7.2 X10^3/uL (3.6-10.0)
[2018-10-21] MEDS: APRESOLINE TAB 25 MG PO SCH ×3 (05:31→21:53)
[2018-10-21] MEDS: REQUIP PO SCH ×3 (05:32→21:54)
[2018-10-21 05:37] LABS: ALANINE AMINOTRANSFERASE 16 Units/L (12-78); ALBUMIN 2.7 g/dL (3.4-5.0); ALKALINE PHOSPHATASE 69 Units/L (46-116); ASPARTATE AMINO TRANSFERASE 14 Units/L (15-37); BLOOD UREA NITROGEN 9 mg/dL (7-18); CALCIUM 8.2 mg/dL (8.5-10.1); CARBON DIOXIDE 24.9 mmol/L (21-32); CHLORIDE 108 mmol/L (98-107); COR CA(FOR HYPOALB) 9.2 mg/dL (8.5-10.1); CREATININE 1.04 mg/dL (0.55-1.02); SODIUM 142 mmol/L (136-145); TOTAL PROTEIN 5.7 g/dL (6.4-8.2); eGFR NON BLACK RACES 54 (>60)
[2018-10-21 06:00] LABS: BAND NEUTROPHILS % 2 % (0-10); PLATELET MORPHOLOGY COMMENT NORMAL (NORMAL)
--- NOTE | 2018-10-21 06:00 | RAD ---
Examination: Portable AP chest History: SOB Comparison reference 10/20/2018 Findings: There is no change in appearance of heart, lungs or pleural spaces since 1 day earlier. Diffuse interstitial prominence is similar to prior. No developing consolidation, pneumothorax or large pleural effusion. Impression: No change since 1 day earlier. Reported By:
[2018-10-21] MEDS: PULMICORT NEB TX 0.5 MG NEB SCH ×2 (09:15→20:27)
[2018-10-21] MEDS ORDERED: NS 100 ML IV + SPIKE MINIBAG* 100 ML ONE (09:18)
[2018-10-21] MEDS: SINGULAIR TAB 10 MG PO SCH (09:36)
[2018-10-21] MEDS: NEURONTIN CAP 100 MG PO SCH (09:36)
[2018-10-21] MEDS: NAMENDA TAB 10 MG PO SCH ×2 (09:36→21:52)
[2018-10-21] MEDS: INVANZ INJ 1 GM VIAL 1 GM in NS 100 ML IV + SPIKE MINIBAG* 100 ML IV SCH (09:36)
[2018-10-21] MEDS: ULTRAM PO SCH ×2 (09:37→21:53)
[2018-10-21] MEDS: COZAAR PO SCH (09:37)
[2018-10-21] MEDS: CULTURELLE PRO-WELL PROBIOTIC CAP PO SCH (09:38)
[2018-10-21] MEDS: MICRO K EXTEN CAP 10 MEQ PO SCH (09:38)
[2018-10-21] MEDS: EFFEXOR XR 75 MG CAP PO SCH (09:38)
[2018-10-21] MEDS: LOPRESSOR TAB 25 MG PO SCH ×2 (09:39→21:52)
[2018-10-21] MEDS: ARICEPT TAB 10 MG PO SCH (09:39)
[2018-10-21 16:58] LABS: HEMATOCRIT 27.8 % (36.0-47.0); HEMOGLOBIN 9.2 g/dL (12.0-16.0)
[2018-10-21] MEDS: NS 1000 ML 1,000 ML IV SCH (17:11)
[2018-10-21] MEDS ORDERED: ROBITUSSIN DM PO PRN (19:45)
[2018-10-21] MEDS: PEPCID 20 MG IV PREMIX* 20 MG/50 ML BAG IV SCH (21:52)
[2018-10-21] MEDS: COLACE CAP 100 MG PO SCH (21:52)
[2018-10-21] MEDS: NEURONTIN CAP 300 MG PO SCH (21:52)
[2018-10-21] MEDS: PRAVACHOL PO SCH (21:53)
[2018-10-21] MEDS: RESTORIL CAP 15 MG PO PRN (21:54)
[2018-10-22] MEDS: DUONEB 0.5 MG/3 MG NEB SCH ×3 (00:25→08:05)
[2018-10-22] MEDS: APRESOLINE TAB 25 MG PO SCH (05:29)
[2018-10-22] MEDS: REQUIP PO SCH (05:29)
[2018-10-22 06:09] LABS: BASOPHILS # (AUTO) 0.1 X10^3/uL (0.0-0.1); BASOPHILS % (AUTO) 0.8 % (0.2-1.0); EOSINOPHILS # (AUTO) 0.2 x10^3/uL (0.0-0.2); EOSINOPHILS % (AUTO) 2.7 % (0.9-2.9); HEMATOCRIT 26.3 % (36.0-47.0); HEMOGLOBIN 8.8 g/dL (12.0-16.0); LYMPHOCYTES # (AUTO) 1.3 X10^3/uL (1.3-2.9); LYMPHOCYTES % (AUTO) 20.5 % (21.0-51.0); MEAN CORPUSCULAR HGB CONC 33.3 g/dL (33.0-35.0); MEAN PLATELET VOLUME 9.3 fL (7.4-11.0); NEUTROPHILS # (AUTO) 3.7 x10^3/uL (2.2-4.8); PLATELET COUNT 228 X10^3/uL (150.0-450.0); RED BLOOD COUNT 2.92 X10^6/uL (3.5-5.4); RED CELL DISTRIBUTION WIDTH 15.4 % (11.6-16.5); WHITE BLOOD COUNT 6.2 X10^3/uL (3.6-10.0)
[2018-10-22 06:21] LABS: ALANINE AMINOTRANSFERASE 15 Units/L (12-78); ALBUMIN 2.8 g/dL (3.4-5.0); ALKALINE PHOSPHATASE 72 Units/L (46-116); ASPARTATE AMINO TRANSFERASE 12 Units/L (15-37); BLOOD UREA NITROGEN 10 mg/dL (7-18); CALCIUM 8.2 mg/dL (8.5-10.1); CARBON DIOXIDE 23.5 mmol/L (21-32); CHLORIDE 108 mmol/L (98-107); COR CA(FOR HYPOALB) 9.2 mg/dL (8.5-10.1); COR NA(FOR HYPERGLY) 141 mmol/L (136-145); CREATININE 0.96 mg/dL (0.55-1.02); SODIUM 141 mmol/L (136-145); TOTAL PROTEIN 5.9 g/dL (6.4-8.2); eGFR NON BLACK RACES 59 (>60)
[2018-10-22] MEDS: PULMICORT NEB TX 0.5 MG NEB SCH (08:05)
[2018-10-22] MEDS: INVANZ INJ 1 GM VIAL 1 GM in NS 100 ML IV + SPIKE MINIBAG* 100 ML IV SCH (08:32)
[2018-10-22] MEDS: NAMENDA TAB 10 MG PO SCH (08:33)
[2018-10-22] MEDS: CULTURELLE PRO-WELL PROBIOTIC CAP PO SCH (08:33)
[2018-10-22] MEDS: LOPRESSOR TAB 25 MG PO SCH (08:33)
[2018-10-22] MEDS: SINGULAIR TAB 10 MG PO SCH (08:33)
[2018-10-22] MEDS: ULTRAM PO SCH (08:33)
[2018-10-22] MEDS: MICRO K EXTEN CAP 10 MEQ PO SCH (08:33)
[2018-10-22] MEDS: ARICEPT TAB 10 MG PO SCH (08:33)
[2018-10-22] MEDS: NEURONTIN CAP 100 MG PO SCH (08:33)
[2018-10-22] MEDS: COZAAR PO SCH (08:33)
[2018-10-22] MEDS: EFFEXOR XR 75 MG CAP PO SCH (08:34)
--- NOTE | 2018-10-22 09:09 | PCM.PROG ---
Progress Note - Progress Note for Day of Date of Exam: 10/20/18 - Subjective Subjective: WAS ADMITTED FOR ANEMIA AND COPD EXACERBATION. SHE RECEIVED TWO UNITS OF PACKED RED BLOOD CELLS ON ADMISSION. TODAY, SHE IS ALERT AND ORIENTED, LYING IN BED ON MORNING ROUNDS. SHE CONTINUES WITH WEAKNESS, SHORTNESS OF BREATH, AND COUGH, BUT CONTINUES TO REPORT IMPROVEMENT. ON EXAMIN ATION, HEART IS REGULAR IN RATE AND RHYTHM. BILATERAL LUNGS ARE NOTED WITH DIMINISHED LUNG SOUNDS THROUGHOUT. ABDOMEN IS ROUND, SOFT, AND NON-TENDER WITH NORMAL BOWEL SOUNDS NOTED IN ALL QUADRANTS. HER VITALS THIS MORNING ARE 97.9-71-19-97%-169/66. LABS WERE OBTAINED. ABNORMAL LAB VALUES INCLUDE THE FOLLOWING: RBC 2.95, HGB 8.8, HCT 26.1, CHLORIDE 108, CREATININE 1.03, GLUCOSE 102, AST 14, TOTAL PROTEIN 6.0, ALBUMIN 2.8. STOOL POSITIVE FOR OCCULT BLOOD. URINE CULTURE REVEALED GROWTH OF KLEBIELLA PNEUMONIAE. A CHEST XRAY WAS OBTAINED TODAY AND REVEALED: NO CHANGE OR NEW ABNORMALITY. SHE IS CURRENTLY RECEIVING IV HYDRATION, INVANZ IV, RESPIRATORY TREATMENTS, AND PEPCID IV. WE WILL CONTINUE WITH CURRENT PLAN OF CARE TODAY. OTHERWISE, WE WILL FOLLOW UP WITH AM LABS AND 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. - Past Medical Family Social History Past Med/Fam/Surg Hx: No changes since H&P Allergies: Allergies levofloxacin [From Levaquin] Allergy (Verified 10/17/18 13:50) - Review of Systems ROS: No change since H&P - Vital Signs and I&O's Vital Signs: Temperature 98.4 F Pulse Rate [Apical] 66 Pulse Rate 63 Respiratory Rate 18 Blood Pressure [Left Calf] 126/56 Blood Pressure [Left Arm] 182/70 Blood Pressure [Right Calf] 168/77 Blood Pressure [Right Arm] 171/66 Blood Pressure 185/72 O2 Sat by Pulse Oximetry 92 Intake and Output: Intake & Output 10/19/18 10/20/18 10/21/18 10/22/18 11:59 11:59 11:59 11:59 Intake Total 1240 / 1240 1674 / 1674 969 / 969 1510 / 1510 Output Total 200 / 200 Balance 1040 / 1040 1674 / 1674 969 / 969 1510 / 1510 - Physical Exam Oriented: Normal Eyes: Normal Ear: Normal Nose: Normal Throat: Normal Respiratory: Diminished Cardiovascular: Normal : Normal Auscultation: Bowel Sounds: Normal Palpation: Normal Tenderness: Normal Skin: Normal Musculoskeletal: Normal Psychiatric: Normal Mood Description: Calm Affect: Normal Speech Pattern: Clear, Appropriate - Laboratory and Diagnostics Result Diagrams: 10/22/18 05:39 10/22/18 05:39 Labs: 10/17/18 15:07 Blood Blood Culture - Preliminary 10/17/18 20:28 Urine,Clean Catch Urine Culture - Final Klebsiella Pneumoniae 10/17/18 15:31 Blood Blood Culture - Preliminary Laboratory WBC 6.2 X10^3/uL (3.6-10.0) 10/22/18 05:39 RBC 2.92 X10^6/uL (3.5-5.4) L 10/22/18 05:39 Hgb 8.8 g/dL (12.0-16.0) L 10/22/18 05:39 Hct 26.3 % (36.0-47.0) L 10/22/18 05:39 MCV 90.0 fL (80.0-100.0) 10/22/18 05:39 MCH 30.0 pg (27.0-34.0) 10/22/18 05:39 MCHC 33.3 g/dL (33.0-35.0) 10/22/18 05:39 RDW 15.4 % (11.6-16.5) 10/22/18 05:39 Plt Count 228 X10^3/uL (150.0-450.0) 10/22/18 05:39 Plt Count Comment Adequate (ADEQUATE) 10/21/18 05:12 MPV 9.3 fL (7.4-11.0) 10/22/18 05:39 Neut % (Auto) 60.0 % (42.0-75.0) 10/22/18 05:39 Lymph % (Auto) 20.5 % (21.0-51.0) L 10/22/18 05:39 [place] % (Auto) 16.0 % (0.0-13.0) H 10/22/18 05:39 Eos % (Auto) 2.7 % (0.9-2.9) 10/22/18 05:39 Baso % (Auto) 0.8 % (0.2-1.0) 10/22/18 05:39 Neut # (Auto) 3.7 x10^3/uL (2.2-4.8) 10/22/18 05:39 Lymph # (Auto) 1.3 X10^3/uL (1.3-2.9) 10/22/18 05:39 [place] # (Auto) 1.0 x10^3/uL (0.3-0.8) H 10/22/18 05:39 Eos # (Auto) 0.2 x10^3/uL (0.0-0.2) 10/22/18 05:39 Baso # (Auto) 0.1 X10^3/uL (0.0-0.1) 10/22/18 05:39 Absolute Nucleated RBC 0.0 /100WBC 10/22/18 05:39 Total Counted 100 10/21/18 05:12 Neutrophils % (Manual) 61 % (39-76) 10/21/18 05:12 Band Neutrophils % 2 % (0-10) 10/21/18 05:12 Lymphocytes % (Manual) 19 % (13-43) 10/21/18 05:12 Monocytes % (Manual) 14 % (4-9) H 10/21/18 05:12 Eosinophils % (Manual) 4 % (0-6) 10/21/18 05:12 Basophils % (Manual) 1 % (0-1) 10/20/18 05:38 Plt Morphology Comment Normal (NORMAL) 10/21/18 05:12 RBC Morphology Normal (NORMAL) 10/21/18 05:12 INR Target Range - 10/17/18 15:07 INR 0.94 (0.8-1.3) 10/17/18 15:07 APTT 23.9 SECONDS (22.9-36.5) 10/17/18 15:07 PTT Comment - 10/17/18 15:07 D-Dimer 539 ng/mL (0-400) H* 10/17/18 15:07 Sodium 141 mmol/L (136-145) 10/22/18 05:39 Corrected Sodium 141 mmol/L (136-145) 10/22/18 05:39 Potassium 4.2 mmol/L (3.5-5.1) 10/22/18 05:39 Chloride 108 mmol/L (98-107) H 10/22/18 05:39 Carbon Dioxide 23.5 mmol/L (21-32) 10/22/18 05:39 BUN 10 mg/dL (7-18) 10/22/18 05:39 Creatinine 0.96 mg/dL (0.55-1.02) 10/22/18 05:39 Est GFR (MDRD) Af Amer > 60 (>60) 10/22/18 05:39 Est GFR (MDRD) Non-Af 59 (>60) 10/22/18 05:39 Glucose 118 mg/dL (65-99) H 10/22/18 05:39 Lactic Acid 0.7 mmol/L (0.4-2.0) 10/17/18 15:17 Calcium 8.2 mg/dL (8.5-10.1) L 10/22/18 05:39 Corrected Calcium 9.2 mg/dL (8.5-10.1) 10/22/18 05:39 Magnesium 2.1 mg/dL (1.7-2.9) 10/18/18 04:00 Total Bilirubin 0.20 mg/dL (0.2-1.0) 10/22/18 05:39 AST 12 Units/L (15-37) L 10/22/18 05:39 ALT 15 Units/L (12-78) 10/22/18 05:39 Alkaline Phosphatase 72 Units/L (46-116) 10/22/18 05:39 Creatine Kinase 40 Units/L (26-192) 10/18/18 09:50 CK-MB (CK-2) 1.1 ng/mL (0-4.0) 10/18/18 09:50 CK/CKMB % Calc 2.8 % (<4) 10/18/18 09:50 Troponin I 0.02 ng/mL (0-1.5) 10/18/18 09:50 B-Natriuretic Peptide 327 pg/mL (0-79) H 10/17/18 15:07 Total Protein 5.9 g/dL (6.4-8.2) L 10/22/18 05:39 Albumin 2.8 g/dL (3.4-5.0) L 10/22/18 05:39 Globulin 3.1 g/dL (2.5-4.5) 10/22/18 05:39 Albumin/Globulin Ratio 0.9 Ratio (1.1-2.1) L 10/22/18 05:39 Specimen Type Clean catch urine 10/17/18 20:28 Urine Color Pale yellow (YELLOW) 10/17/18 20:28 Urine Appearance Clear (CLEAR) 10/17/18 20:28 Urine pH 6.0 (5.0 - 8.0) 10/17/18 20:28 Ur Specific [place] 1.010 (1.000-1.030) 10/17/18 20:28 Urine Protein Negative (NEGATIVE) 10/17/18 20:28 Urine Glucose (UA) Negative (NEGATIVE) 10/17/18 20: Urine Ketones Negative (NEGATIVE) 10/17/18 20: Urine Occult Blood Negative (NEGATIVE) 10/17/18 20: Urine Nitrite Positive (NEGATIVE) 10/17/18 20: Urine Bilirubin Negative (NEGATIVE) 10/17/18 20:28 Urine Urobilinogen Normal (NORMAL) 10/17/18 20:28 Ur Leukocyte Esterase Negative (NEGATIVE) 10/17/18 20:28 Urine RBC None seen /HPF (NONE SEEN) 10/17/18 20:28 Urine WBC 3-5 /HPF (NONE SEEN) 10/17/18 20:28 Ur Squamous Epith Cells Negative /HPF (NEGATIVE) 10/17/18 20:28 Urine Bacteria 1+ /HPF (NEGATIVE) 10/17/18 20:28 Ur Culture Indicated? Yes/culture set up 10/17/18 20:28 Stool Description 10g,black,liquid 10/17/18 21:45 Stl Occult Blood (IFOB) Positive (NEGATIVE) A 10/17/18 21:45 Blood Type A POSITIVE 10/17/18 15:31 Antibody Screen Negative 10/17/18 15:31 Crossmatch See Detail 10/17/18 15:31 - Plan (1) Anemia Status: Acute Qualifiers: Anemia type: unspecified type Qualified Code(s): D64.9 - Anemia, unspecified Plan: 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 (2) COPD exacerbation Status: Acute Plan: RESPIRATORY TX, SUPPLEMENTAL OXYGEN, 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 (3) Urinary tract infection Status: Acute Qualifiers: Urinary tract infection type: acute cystitis Hematuria presence: with hematuria Qualified Code(s): N30.01 - Acute cystitis with hematuria Plan: INVANZ 1G IV DAILY, 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
--- NOTE | 2018-10-22 09:30 | PCM.PROG ---
Progress Note - Progress Note for Day of Date of Exam: 10/21/18 - Subjective Subjective: WAS ADMITTED FOR ANEMIA AND COPD EXACERBATION. SHE RECEIVED TWO UNITS OF PACKED RED BLOOD CELLS ON ADMISSION. TODAY, SHE IS ALERT AND ORIENTED, LYING IN BED ON MORNING ROUNDS. SHE CONTINUES WITH WEAKNESS, SHORTNESS OF BREATH, AND COUGH TODAY. ON EXAMINATION, HEART IS REGULAR IN RATE AND RHYTHM. BILATERAL LUNGS ARE NOTED WITH DIMINISHED LUNG SOUNDS THROUGHOUT. ABDOMEN IS ROUND, SOFT, AND NON-TENDER WITH NORMAL BOWEL SOUNDS NOTED IN ALL QUADRANTS. HER VITALS THIS MORNING ARE 97.7-66-19-98%-143/96. LABS WERE OBTAINED. ABNORMAL LAB VALUES INCLUDE THE FOLLOWING: RBC 2.84, HGB 8.5, HCT 25.6, CHLORIDE 108, CREATININE 1.04, GLUCOSE 102, CALCIUM 8.2, TOTAL BILI 0.10, AST 14, TOTAL PROTEIN 5.7, ALBUMIN 2.7. STOOL POSITIVE FOR OCCULT BLOOD. URINE CULTURE REVEALED GROWTH OF KLEBIELLA PNEUMONIAE. A CHEST XRAY WAS OBTAINED TODAY AND REVEALED: NO CHANGE OR NEW ABNORMALITY. SHE IS CURRENTLY RECEIVING IV HYDRATION, INVANZ IV, RESPIRATORY TREATMENTS, AND PEPCID IV. WE WILL CONTINUE WITH CURRENT PLAN OF CARE TODAY. OTHERWISE, WE WILL FOLLOW UP WITH AM LABS AND 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. - Past Medical Family Social History Past Med/Fam/Surg Hx: No changes since H&P Allergies: Allergies levofloxacin [From Levaquin] Allergy (Verified 10/17/18 13:50) - Review of Systems ROS: No change since H&P - Vital Signs and I&O's Vital Signs: Temperature 98.4 F Pulse Rate [Apical] 66 Pulse Rate 63 Respiratory Rate 18 Blood Pressure [Left Calf] 126/56 Blood Pressure [Left Arm] 182/70 Blood Pressure [Right Calf] 168/77 Blood Pressure [Right Arm] 171/66 Blood Pressure 185/72 O2 Sat by Pulse Oximetry 92 Intake and Output: Intake & Output 10/19/18 10/20/18 10/21/18 10/22/18 11:59 11:59 11:59 11:59 Intake Total 1240 / 1240 1674 / 1674 969 / 969 1510 / 1510 Output Total 200 / 200 Balance 1040 / 1040 1674 / 1674 969 / 969 1510 / 1510 - Physical Exam Oriented: Normal Eyes: Normal Ear: Normal Nose: Normal Throat: Normal Respiratory: Diminished Cardiovascular: Normal : Normal Auscultation: Bowel Sounds: Normal Tenderness: Normal Skin: Normal Musculoskeletal: Normal Psychiatric: Normal Mood Description: Calm Affect: Normal Speech Pattern: Clear, Appropriate - Laboratory and Diagnostics Result Diagrams: 10/22/18 05:39 10/22/18 05:39 Labs: 10/17/18 15:07 Blood Blood Culture - Preliminary 10/17/18 20:28 Urine,Clean Catch Urine Culture - Final Klebsiella Pneumoniae 10/17/18 15:31 Blood Blood Culture - Preliminary Laboratory WBC 6.2 X10^3/uL (3.6-10.0) 10/22/18 05:39 RBC 2.92 X10^6/uL (3.5-5.4) L 10/22/18 05:39 Hgb 8.8 g/dL (12.0-16.0) L 10/22/18 05:39 Hct 26.3 % (36.0-47.0) L 10/22/18 05:39 MCV 90.0 fL (80.0-100.0) 10/22/18 05:39 MCH 30.0 pg (27.0-34.0) 10/22/18 05:39 MCHC 33.3 g/dL (33.0-35.0) 10/22/18 05:39 RDW 15.4 % (11.6-16.5) 10/22/18 05:39 Plt Count 228 X10^3/uL (150.0-450.0) 10/22/18 05:39 Plt Count Comment Adequate (ADEQUATE) 10/21/18 05:12 MPV 9.3 fL (7.4-11.0) 10/22/18 05:39 Neut % (Auto) 60.0 % (42.0-75.0) 10/22/18 05:39 Lymph % (Auto) 20.5 % (21.0-51.0) L 10/22/18 05:39 [place] % (Auto) 16.0 % (0.0-13.0) H 10/22/18 05:39 Eos % (Auto) 2.7 % (0.9-2.9) 10/22/18 05:39 Baso % (Auto) 0.8 % (0.2-1.0) 10/22/18 05:39 Neut # (Auto) 3.7 x10^3/uL (2.2-4.8) 10/22/18 05:39 Lymph # (Auto) 1.3 X10^3/uL (1.3-2.9) 10/22/18 05:39 [place] # (Auto) 1.0 x10^3/uL (0.3-0.8) H 10/22/18 05:39 Eos # (Auto) 0.2 x10^3/uL (0.0-0.2) 10/22/18 05:39 Baso # (Auto) 0.1 X10^3/uL (0.0-0.1) 10/22/18 05:39 Absolute Nucleated RBC 0.0 /100WBC 10/22/18 05:39 Total Counted 100 10/21/18 05:12 Neutrophils % (Manual) 61 % (39-76) 10/21/18 05:12 Band Neutrophils % 2 % (0-10) 10/21/18 05:12 Lymphocytes % (Manual) 19 % (13-43) 10/21/18 05:12 Monocytes % (Manual) 14 % (4-9) H 10/21/18 05:12 Eosinophils % (Manual) 4 % (0-6) 10/21/18 05:12 Basophils % (Manual) 1 % (0-1) 10/20/18 05:38 Plt Morphology Comment Normal (NORMAL) 10/21/18 05:12 RBC Morphology Normal (NORMAL) 10/21/18 05:12 INR Target Range - 10/17/18 15:07 INR 0.94 (0.8-1.3) 10/17/18 15:07 APTT 23.9 SECONDS (22.9-36.5) 10/17/18 15:07 PTT Comment - 10/17/18 15:07 D-Dimer 539 ng/mL (0-400) H* 10/17/18 15:07 Sodium 141 mmol/L (136-145) 10/22/18 05:39 Corrected Sodium 141 mmol/L (136-145) 10/22/18 05:39 Potassium 4.2 mmol/L (3.5-5.1) 10/22/18 05:39 Chloride 108 mmol/L (98-107) H 10/22/18 05:39 Carbon Dioxide 23.5 mmol/L (21-32) 10/22/18 05:39 BUN 10 mg/dL (7-18) 10/22/18 05:39 Creatinine 0.96 mg/dL (0.55-1.02) 10/22/18 05:39 Est GFR (MDRD) Af Amer > 60 (>60) 10/22/18 05:39 Est GFR (MDRD) Non-Af 59 (>60) 10/22/18 05:39 Glucose 118 mg/dL (65-99) H 10/22/18 05:39 Lactic Acid 0.7 mmol/L (0.4-2.0) 10/17/18 15:17 Calcium 8.2 mg/dL (8.5-10.1) L 10/22/18 05:39 Corrected Calcium 9.2 mg/dL (8.5-10.1) 10/22/18 05:39 Magnesium 2.1 mg/dL (1.7-2.9) 10/18/18 04:00 Total Bilirubin 0.20 mg/dL (0.2-1.0) 10/22/18 05:39 AST 12 Units/L (15-37) L 10/22/18 05:39 ALT 15 Units/L (12-78) 10/22/18 05:39 Alkaline Phosphatase 72 Units/L (46-116) 10/22/18 05:39 Creatine Kinase 40 Units/L (26-192) 10/18/18 09:50 CK-MB (CK-2) 1.1 ng/mL (0-4.0) 10/18/18 09:50 CK/CKMB % Calc 2.8 % (<4) 10/18/18 09:50 Troponin I 0.02 ng/mL (0-1.5) 10/18/18 09:50 B-Natriuretic Peptide 327 pg/mL (0-79) H 10/17/18 15:07 Total Protein 5.9 g/dL (6.4-8.2) L 10/22/18 05:39 Albumin 2.8 g/dL (3.4-5.0) L 10/22/18 05:39 Globulin 3.1 g/dL (2.5-4.5) 10/22/18 05:39 Albumin/Globulin Ratio 0.9 Ratio (1.1-2.1) L 10/22/18 05:39 Specimen Type Clean catch urine 10/17/18 20:28 Urine Color Pale yellow (YELLOW) 10/17/18 20:28 Urine Appearance Clear (CLEAR) 10/17/18 20:28 Urine pH 6.0 (5.0 - 8.0) 10/17/18 20:28 Ur Specific [place] 1.010 (1.000-1.030) 10/17/18 20:28 Urine Protein Negative (NEGATIVE) 10/17/18 20:28 Urine Glucose (UA) Negative (NEGATIVE) 10/17/18 20: Urine Ketones Negative (NEGATIVE) 10/17/18 20: Urine Occult Blood Negative (NEGATIVE) 10/17/18 20: Urine Nitrite Positive (NEGATIVE) 10/17/18 20: Urine Bilirubin Negative (NEGATIVE) 10/17/18 20:28 Urine Urobilinogen Normal (NORMAL) 10/17/18 20:28 Ur Leukocyte Esterase Negative (NEGATIVE) 10/17/18 20:28 Urine RBC None seen /HPF (NONE SEEN) 10/17/18 20:28 Urine WBC 3-5 /HPF (NONE SEEN) 10/17/18 20:28 Ur Squamous Epith Cells Negative /HPF (NEGATIVE) 10/17/18 20:28 Urine Bacteria 1+ /HPF (NEGATIVE) 10/17/18 20:28 Ur Culture Indicated? Yes/culture set up 10/17/18 20:28 Stool Description 10g,black,liquid 10/17/18 21:45 Stl Occult Blood (IFOB) Positive (NEGATIVE) A 10/17/18 21:45 Blood Type A POSITIVE 10/17/18 15:31 Antibody Screen Negative 10/17/18 15:31 Crossmatch See Detail 10/17/18 15:31 - Plan (1) Anemia Status: Acute Qualifiers: Anemia type: unspecified type Qualified Code(s): D64.9 - Anemia, unspecified Plan: 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 (2) COPD exacerbation Status: Acute Plan: RESPIRATORY TX, SUPPLEMENTAL OXYGEN, 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 (3) Urinary tract infection Status: Acute Qualifiers: Urinary tract infection type: acute cystitis Hematuria presence: with hem aturia Qualified Code(s): N30.01 - Acute cystitis with hematuria Plan: INVANZ 1G IV DAILY, 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
[2018-10-22 11:06] VITALS: BP 124/53
== END 2018-10-22 13:36 | disposition home or self-care (01) | DRG 191 ==
LOC: ER 13:39 → ICU 15:58
PROVIDERS: ADMIT Internal Medicine; ATTEND Internal Medicine
DX: B96.1 Klebsiella pneumoniae [K. pneumoniae] as the cause of diseases classified elsewhere; R06.02 Shortness of breath; I25.10 Atherosclerotic heart disease of native coronary artery without angina pectoris; R42 Dizziness and giddiness; J44.1 Chronic obstructive pulmonary disease with (acute) exacerbation; N18.9 Chronic kidney disease, unspecified; R94.31 Abnormal electrocardiogram [ECG] [EKG]; N30.01 Acute cystitis with hematuria; I12.9 Hypertensive chronic kidney disease with stage 1 through stage 4 chronic kidney disease, or unspecified chronic kidney disease; E78.2 Mixed hyperlipidemia; R53.1 Weakness; D64.89 Other specified anemias
CPT/HCPCS: 36415; 36430; 71010; 71045; 80053; 81001; 82270; 82550; 82553; 83605; 83735; 83880; 84484; 85014; 85018; 85025; 85378; 85610; 85730; 86850; 86900; 86901; 86922; 87040; 87086; 87088; 87186; 93005; 94640; 96365; 99284; A4216; A4222; P9016; S0028; J1200; J1335; J1940; J3490; J7030; J7050; J7620; J7626

== ENCOUNTER 2018-11-21 03:34 | Inpatient (IN) ==
[2018-11-21 03:44] VITALS: BMI 23.4
--- NOTE | 2018-11-21 04:05 | DR.SOBA ---
HPI Time Seen Time Seen by Provider: 11/21/18 03:47 Primary Care Physician Primary Care Physician: JEANINE HPI Comment HPI Comment: Patient presents with complaint of dyspnea, onset today. She states that she does not know what caused this. Earlier she fell and hit the left frontal forehead. She also had had cataract removed from left eye today. She d enies chest pain. Has history of cardiac disease with stent(s) a few years ago. She is alert in no acute distress with shallow breathing. Complaints Chief Complaint Doctors Comments: Dyspnea Chief Complaint:: [facility] RESPONDED TO CALL REFERENCE TO DIFFICULTY BREATHING. UPON ARRIVAL SPO2 97-98% WITH O2 NC INTACT. EXPIRATORY WHEEZE ON LEFT LUNG FIELD WITH MINIMAL DISTRESS. UPON ARRIVAL TO ED, PATIENT ALERT ORIENTED IN NO DISTRESS. OXYGEN INTACT, 98%. PATIENT DENIES ANY PAIN, STATES, "I JUST FEEL LIKE I CAN'T BREATHE GOOD." PATIENT HAD CATARACT SURGERY 47205. NOTED EYE PATCH TO LEFT EYE. Source History Provided: EMS Mode of Arrival Mode of Arrival: EMS Timing Onset of Chief Complaint: 11/21/18 PMH PMH Past Medical History: Yes Past Medical History: Anemia, Arthritis, Asthma, COPD, Coronary Artery Disease, Dyslipidemia, GERD, Hypertension and [place] Past Medical History Comment: LEFT BREAST CA-MASTECTOMY, UTERINE CA- HYSTERECTOMY, DDD, RA, DIVERTICULOSIS, GATRITIS, NEUROGENIC BLADDER, HOME OXYGEN Past Surgical History: Yes Surgical History: Angioplasty/Stents, Hysterectomy and Mastectomy Past Surgical History Comment: LEFT MASTECTOMY CATARACT SURGERY-LEFT EYE Family History History of Family Medical Conditions: Yes Family Medical History: Coronary Artery Disease and Hypertension Social History Does patient currently use any type of tobacco product: No Have you used tobacco products in the last 12 months: No Type of Tobacco Use: None Does any household member use tobacco: No Alcohol Use: None Do you use any recreational Drugs:: No Lives With: Family Lives Where: Home infectious screening In the last 2 months have you had wt loss of >10#?: NO Have you had fever, night sweats or hemotysis?: No Have you traveled outside the country in the last 6 months?: No Isolation: Standard ROS Review of Systems Constitutional: Fatigue Eyes: No Symptoms Reported and Eye Pain (eye surgery today; removal of cataract) ENTM: No Symptoms Reported Respiratoy: No Symptoms Reported and Orthopnea Cardiovascular: No Symptoms Reported Gastrointestinal/Abdominal: No Symptoms Reported Genitourinary: No Symptoms Reported Neurological: No Symptoms Reported Musculoskeletal: No Symptoms Reported Integumentary: No Symptoms Reported Hematologic/Lymphatic: No Symptoms Reported and See HPI Endocrine: No Symptoms Reported Psychiatric: No Symptoms Reported All Other Systems: Reviewed and Negative PE Vital Signs Vitals: Temperature 99.2 F Pulse Rate [Left] 72 Pulse Rate 88 Respiratory Rate 15 Blood Pressure [Left Calf] 126/56 Blood Pressure [Left Arm] 177/74 Blood Pressure [Right Calf] 168/77 Blood Pressure [Right Arm] 171/66 Blood Pressure 184/73 O2 Sat by Pulse Oximetry 97 General Limitations: No Limitations General Appearance: Alert, Anxious and In Distress Head Head Exam: Other (bruise above left eye (forehead)) Eyes Eye exam: Normal Appearance and Other (cataract of left eye today) ENT ENT Exam: Normal Exam, Normal Oropharynx and Normal External Ear Exam Neck Neck Exam: Normal Inspection and Full ROM Chest Chest Inspection: Normal Inspection and Symmetric Chest Wall Rise Respiratory Respiratory Exam: Normal Lung Sounds Bilat Respiratory Exam: Bilateral: Clear to Auscultation Cardiovascular Cardiovascular Exam: Regular Rate and Normal Rhythm Abdominal Exam Abdominal Exam: Normal Bowel Sounds Abdominal Tenderness: RLQ Extremities Extremities Exam: Normal Inspection Back Back Exam: Normal Inspection Neurologic Neurological Exam: Alert, Oriented X3 and CN II-XII Intact Psychiatric Psychiatric Exam: Normal Affect and Anxious Skin Skin Exam: Warm, Dry, Normal Color and Pallor MDM Differential Diagnosis Differential Diagnosis: Anxiety, Hyponatremia and Pulmonary embolism COURSE Reevaluation 3rd: Resolved Consultation Called: 04:55 Consultation Comments: agreed to admit to his service for blood transfusion [id number] with Dr Faisal Matias concerning transfer-full, will call back when bed is available [facility]OR Labs Reviewed Laboratory Results Reviewed?: Yes Result Diagrams: 11/21/18 04:05 11/21/18 04:05 Laboratory: WBC 9.1 X10^3/uL (3.6-10.0) 11/21/18 04:05 RBC 2.28 X10^6/uL (3.5-5.4) L 11/21/18 04:05 Hgb 6.9 g/dL (12.0-16.0) L* 11/21/18 04:05 Hct 21.0 % (36.0-47.0) L 11/21/18 04:05 MCV 92.1 fL (80.0-100.0) 11/21/18 04:05 MCH 30.2 pg (27.0-34.0) 11/21/18 04:05 MCHC 32.8 g/dL (33.0-35.0) L 11/21/18 04:05 RDW 17.3 % (11.6-16.5) H 11/21/18 04:05 Plt Count 353 X10^3/uL (150.0-450.0) 11/21/18 04:05 Plt Count Comment Adequate (ADEQUATE) 11/21/18 04:05 MPV 8.8 fL (7.4-11.0) 11/21/18 04:05 Neut % (Auto) 76.6 % (42.0-75.0) H 11/21/18 04:05 Lymph % (Auto) 12.7 % (21.0-51.0) L 11/21/18 04:05 [place] % (Auto) 8.5 % (0.0-13.0) 11/21/18 04:05 Eos % (Auto) 1.3 % (0.9-2.9) 11/21/18 04:05 Baso % (Auto) 0.9 % (0.2-1.0) 11/21/18 04:05 Neut # (Auto) 7.0 x10^3/uL (2.2-4.8) H 11/21/18 04:05 Lymph # (Auto) 1.2 X10^3/uL (1.3-2.9) L 11/21/18 04:05 [place] # (Auto) 0.8 x10^3/uL (0.3-0.8) 11/21/18 04:05 Eos # (Auto) 0.1 x10^3/uL (0.0-0.2) 11/21/18 04:05 Baso # (Auto) 0.1 X10^3/uL (0.0-0.1) 11/21/18 04:05 Absolute Nucleated RBC 0.1 /100WBC 11/21/18 04:05 Plt Morphology Comment Normal (NORMAL) 11/21/18 04:05 RBC Morphology Abnormal (NORMAL) A 11/21/18 04:05 Hypochromasia Slight A 11/21/18 04:05 Anisocytosis Slight A 11/21/18 04:05 D-Dimer 540 ng/mL (0-400) H* 11/21/18 04:05 Sample Site Lbra 11/21/18 05:45 ABG pH 7.290 (7.35-7.45) L 11/21/18 05:45 ABG pCO2 54.0 mmHg (35.0-45.0) H* 11/21/18 05:45 ABG pO2 87.0 mmHg (80.0-100.0) 11/21/18 05:45 ABG HCO3 26.0 mmol/L (22-26) 11/21/18 05:45 ABG O2 Saturation 95.0 % (90-100) 11/21/18 05:45 ABG Base Excess -1.3 mmol/L (-2.0-2.0) 11/21/18 05:45 Jeff Test N/a 11/21/18 05:45 A-a Gradient 74.0 mmHg 11/21/18 05:45 FiO2 32.0 11/21/18 05:45 Blood Gas Comments Pt toro well elj 11/21/18 05:45 Sodium 144 mmol/L (136-145) 11/21/18 04:05 Corrected Sodium 144 mmol/L (136-145) 11/21/18 04:05 Potassium 4.6 mmol/L (3.5-5.1) 11/21/18 04:05 Chloride 109 mmol/L (98-107) H 11/21/18 04:05 Carbon Dioxide 27.3 mmol/L (21-32) 11/21/18 04:05 BUN 17 mg/dL (7-18) 11/21/18 04:05 Creatinine 1.10 mg/dL (0.55-1.02) H 11/21/18 04:05 Est GFR (MDRD) Af Amer > 60 (>60) 11/21/18 04:05 Est GFR (MDRD) Non-Af 51 (>60) L 11/21/18 04:05 Glucose 118 mg/dL (65-99) H 11/21/18 04:05 Calcium 8.7 mg/dL (8.5-10.1) 11/21/18 04:05 Corrected Calcium 9.5 mg/dL (8.5-10.1) 11/21/18 04:05 Total Bilirubin 0.10 mg/dL (0.2-1.0) L 11/21/18 04:05 AST 34 Units/L (15-37) 11/21/18 04:05 ALT 34 Units/L (12-78) 11/21/18 04:05 Alkaline Phosphatase 88 Units/L (46-116) 11/21/18 04:05 B-Natriuretic Peptide 1050 pg/mL (0-79) H* 11/21/18 04:05 Total Protein 6.5 g/dL (6.4-8.2) 11/21/18 04:05 Albumin 3.0 g/dL (3.4-5.0) L 11/21/18 04:05 Globulin 3.5 g/dL (2.5-4.5) 11/21/18 04:05 Albumin/Globulin Ratio 0.9 Ratio (1.1-2.1) L 11/21/18 04:05 Specimen Type Catherized urine 11/21/18 05:26 Urine Color Yellow (YELLOW) 11/21/18 05:26 Urine Appearance Cloudy (CLEAR) 11/21/18 05:26 Urine pH 6.5 (5.0 - 8.0) 11/21/18 05:26 Ur Specific [place] 1.010 (1.000-1.030) 11/21/18 05:26 Urine Protein 3+ (NEGATIVE) 11/21/18 05:26 Urine Glucose (UA) Negative (NEGATIVE) 11/21/18 05:26 Urine Ketones Negative (NEGATIVE) 11/21/18 05:26 Urine Occult Blood 1+ (NEGATIVE) 11/21/18 05:26 Urine Nitrite Positive (NEGATIVE) 11/21/18 05:26 Urine Bilirubin Negative (NEGATIVE) 11/21/18 05:26 Urine Urobilinogen Normal (NORMAL) 11/21/18 05:26 Ur Leukocyte Esterase 2+ (NEGATIVE) 11/21/18 05:26 Urine RBC 3-5 /HPF (NONE SEEN) 11/21/18 05:26 Urine WBC 10-20 /HPF (NONE SEEN) 11/21/18 05:26 Ur Squamous Epith Cells Negative /HPF (NEGATIVE) 11/21/18 05:26 Urine Bacteria 1+ /HPF (NEGATIVE) 11/21/18 05:26 Urine Mucus Few /HPF (NEGATIVE) 11/21/18 05:26 Ur Culture Indicated? Yes/culture set up 11/21/18 05:26 Blood Type A POSITIVE 11/21/18 04:44 Antibody Screen Negative 11/21/18 04:44 Crossmatch See Detail 11/21/18 04:44 Other Results Comments: chest: The heart is borderline enlarged without congestive failure. No acute alveolar infiltrate significant effusion is identified. No pneumothorax XRAY XRAY Interpreted by: Radiologist ADDITIONAL NOTES Additional Notes Additional Notes: Admit to service for blood transfusion. 0725-[facility] return called talked to Dr. Shah who declined the transfer due to lack of higher level of care. 0830 Dr. Cohen called and agreed to accept to his service for further care.
[2018-11-21 04:28] LABS: ALANINE AMINOTRANSFERASE 34 Units/L (12-78); ALKALINE PHOSPHATASE 88 Units/L (46-116); ASPARTATE AMINO TRANSFERASE 34 Units/L (15-37); BLOOD UREA NITROGEN 17 mg/dL (7-18); CALCIUM 8.7 mg/dL (8.5-10.1); CARBON DIOXIDE 27.3 mmol/L (21-32); CHLORIDE 109 mmol/L (98-107); COR CA(FOR HYPOALB) 9.5 mg/dL (8.5-10.1); COR NA(FOR HYPERGLY) 144 mmol/L (136-145); SODIUM 144 mmol/L (136-145); TOTAL PROTEIN 6.5 g/dL (6.4-8.2); eGFR NON BLACK RACES 51 (>60)
[2018-11-21 04:31] LABS: BASOPHILS # (AUTO) 0.1 X10^3/uL (0.0-0.1); BASOPHILS % (AUTO) 0.9 % (0.2-1.0); EOSINOPHILS # (AUTO) 0.1 x10^3/uL (0.0-0.2); EOSINOPHILS % (AUTO) 1.3 % (0.9-2.9); LYMPHOCYTES # (AUTO) 1.2 X10^3/uL (1.3-2.9); LYMPHOCYTES % (AUTO) 12.7 % (21.0-51.0); MEAN CORPUSCULAR HEMOGLOBIN 30.2 pg (27.0-34.0); MEAN CORPUSCULAR HGB CONC 32.8 g/dL (33.0-35.0); MEAN CORPUSCULAR VOLUME 92.1 fL (80.0-100.0); MEAN PLATELET VOLUME 8.8 fL (7.4-11.0); MONOCYTES # (AUTO) 0.8 x10^3/uL (0.3-0.8); MONOCYTES % (AUTO) 8.5 % (0.0-13.0); NEUTROPHILS % (AUTO) 76.6 % (42.0-75.0); PLATELET COUNT 353 X10^3/uL (150.0-450.0); RED BLOOD COUNT 2.28 X10^6/uL (3.5-5.4); RED CELL DISTRIBUTION WIDTH 17.3 % (11.6-16.5); WHITE BLOOD COUNT 9.1 X10^3/uL (3.6-10.0)
--- NOTE | 2018-11-21 04:35 | CT ---
CT head without contrast Indication: Fell, hit forehead, 1 day post cataract surgery Technique: Helical CT images of the brain were obtained without IV contrast. Reformatted images in the coronal and sagittal planes were also generated for review. Comparison: 09/19/2018 Findings: There is age-appropriate generalized cerebral atrophy with commensurate ventricular and sulcal enlargement. Patchy areas of periventricular and subcortical white matter hypoattenuation are nonspecific but are likely on the basis of chronic small vessel ischemic disease. Correa-white differentiation is maintained. No visible acute infarction is identified. There is no intracranial hemorrhage, extra-axial collection, hydrocephalus or mass. The visualized paranasal sinuses and mastoid air cells are clear. Imaged extracranial structures are grossly unremarkable. Impression: No acute intracranial abnormality. Age-appropriate atrophy and chronic microangiopathy. Reported By:
[2018-11-21 04:38] LABS: ANISOCYTOSIS SLIGHT; HEMOGLOBIN 6.9 g/dL (12.0-16.0); HYPOCHROMASIA SLIGHT; PLATELET MORPHOLOGY COMMENT NORMAL (NORMAL)
[2018-11-21] MEDS ORDERED: TYLENOL 325 MG TAB PO PRN (05:00)
[2018-11-21] MEDS ORDERED: BENADRYL INJ 50 MG VIAL IVP PRN (05:00)
[2018-11-21] MEDS ORDERED: LASIX IVP ONE ×3 (05:04→10:00)
[2018-11-21] MEDS ORDERED: LASIX ONE (05:12)
[2018-11-21 05:13] LABS: B-TYPE NATRIURETIC PEPTIDE 1050 pg/mL (0-79)
[2018-11-21] MEDS ORDERED: ATIVAN INJ 2 MG VIAL ONE (05:20)
[2018-11-21] MEDS ORDERED: DUONEB 0.5 MG/3 MG NEB ONE (05:20)
[2018-11-21] MEDS ORDERED: DUONEB 0.5 MG/3 MG ONE (05:21)
[2018-11-21] MEDS ORDERED: ATIVAN INJ 2 MG VIAL IVP ONE (05:22)
[2018-11-21] MEDS ORDERED: NORMODYNE INJ 20 MG VIAL IVP ONE (05:28)
[2018-11-21] MEDS ORDERED: NORMODYNE INJ 100 MG VIAL ONE (05:30)
[2018-11-21] MEDS ORDERED: NS 500 ML IV 500 ML IV ONE (05:38)
[2018-11-21 05:53] LABS: ABG BASE EXCESS -1.3 mmol/L (-2.0-2.0)
[2018-11-21 05:55] LABS: BILIRUBIN,URINE NEGATIVE (NEGATIVE); BLOOD/HEMOGLOBIN,URINE 1+ (NEGATIVE); GLUCOSE, URINE NEGATIVE (NEGATIVE); KETONES,URINE NEGATIVE (NEGATIVE); LEUKOCYTE ESTERASE ,URINE 2+ (NEGATIVE); NITRITES,URINE POSITIVE (NEGATIVE); PH,URINE 6.5 (5.0 - 8.0); PROTEIN,URINE 3+ (NEGATIVE); UROBILINOGEN,URINE NORMAL (NORMAL)
[2018-11-21 05:56] LABS: APPEARANCE,URINE CLOUDY (CLEAR); COLOR,URINE YELLOW (YELLOW)
[2018-11-21 05:58] LABS: BACTERIA,URINE 1+ /HPF (NEGATIVE); MUCUS,URINE FEW /HPF (NEGATIVE); SQUAMOUS EPITHELIAL CELL,UR NEGATIVE /HPF (NEGATIVE)
--- NOTE | 2018-11-21 06:06 | RAD ---
Chest, one view Indication: Shortness of breath Comparison: 10/21/2018 Findings: The heart is borderline enlarged without congestive failure. There are chronic interstitial lung changes. No acute alveolar infiltrate or significant effusion is identified. No pneumothorax. Impression: Mild cardiomegaly without CHF. Stable chronic interstitial lung changes. Reported By:
[2018-11-21] MEDS ORDERED: NS 500 ML IV 500 ML ONE ×2 (06:08→14:39)
[2018-11-21] MEDS: NS 500 ML IV 500 ML IV ONE ×2 (06:23→15:13)
--- NOTE | 2018-11-21 08:57 | DR.H&P ---
H&P - History & Physical for Day of: H&P Date: 11/21/18 - Chief Complaint Chief Complaint: SHORTNESS OF BREATH, WEAKNESS - History of Present Illness History of Present Illness: IS A 83 YEAR OLD PATIENT OF OURS WHO PRESENTED TO THE ER WITH COMPLAINTS OF SHORTNESS OF BREATH. SHE ALSO REPORTS FALLING TODAY AND HITTING HER FOREHEAD. SHE IS STATUS POST CATARACT REMOVAL TODAY. ON EXAMINATION, SHE IS NOTED WITH EXPIRATORY WHEEZING. ON ARRIVAL, VITALS WERE 99.2-69-20-98%-184/73. LABS WERE OBTAINED. ABNORMAL LAB VALUES INCLUDE THE FOLLOWING: RBC 2.28, HGB 6.9, HCT 21.0, D-DIMER 540, CHLORIDE 109, CREATININE 1.10, GLUCOSE 118, TOTAL BILI 0.10, BNP 1050, ALBUMIN 3.0. ABG REVEALED: PH 7.290, PC02 54.0, P02 87.0, HC03 26.0. URINALYSIS REVEALED: WBC 10-20, RBC 3-5, LEUKOCYTES 2+, BACTERIA 1+, NITRITE POSITIVE. A CHEST XRAY WAS OBTAINED. IT REVEALED: Mild cardiomegaly without CHF. Stable chronic interstitial lung changes. A BRAIN CT REVEALED: No acute intracranial abnormality. Age-appropriate atrophy and chronic microangiopathy. SHE WAS GIVEN LASIX 20MG IV X 1, ATIVAN 2MG IV X 1, AND A DUONEB IN THE ER. SHE WAS ADMITTED FOR FURTHER EVALUATION AND TREATMENT OF ANEMIA, HYPOALBUMINEMIA, AND A URINARY TRACT INFECTION. WE WILL TRANSFUSE TWO UNITS OF PACKED RED BLOOD CELLS. WE WILL START RESPIRATORY TREATMENTS AND ROCEPHIN 1G IV DAILY. OTHERWISE, WE PLAN TO FOLLOW UP WITH AM LABS AND 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. - Past Medical History Past Medical History: [place], Coronary Artery Disease, Hypertension, Dyslipidemia, Anemia, COPD, Asthma, GERD, Arthritis Additional Medical History: Breast and uterine cancer - Past Surgical History Surgical History: Angioplasty/Stents, Hysterectomy, Mastectomy - Family History Family Medical History: Coronary Artery Disease, Hypertension - Social History Does patient currently use any type of tobacco product: No Have you used tobacco products in the last 12 months: No Type of Tobacco Use: None Does any household member use tobacco: No Alcohol Use: None - Medications Home Medications: levofloxacin [From Levaquin] Allergy (Verified 11/21/18 03:59) CONTINUE taking the following medications acetaminophen [Tylenol Extra Strength] 500 mg PO Q6H PRN 11/21/18 [History] diclofenac sodium 2 g TOPICAL TID PRN 11/21/18 [History] iron-folic acid-mv, min cmb#15 [Hemocyte-Plus] 1 cap PO QDAY 11/21/18 [History] memantine 10 mg PO BID 11/21/18 [History] pantoprazole 40 mg PO DAILY 11/21/18 [History] - Review of Systems Constitutional: Weakness Eyes: No Symptoms Reported ENT: No Symptoms Reported Respiratory: No Symptoms Reported - Physical Exam Vital Signs: Temperature 99.2 F Pulse Rate [Left] 72 Pulse Rate 88 Respiratory Rate 15 Blood Pressure [Left Calf] 126/56 Blood Pressure [Left Arm] 157/62 Blood Pressure [Right Calf] 168/77 Blood Pressure [Right Arm] 171/66 Blood Pressure 184/73 O2 Sat by Pulse Oximetry 97 - Allergies Allergies/Adverse Reactions: Allergies Allergy/AdvReac Type Severity Reaction Status Date / Time levofloxacin [From Levaquin] Allergy Verified 11/21/18 03:59
[2018-11-21] MEDS: PULMICORT NEB TX 0.5 MG NEB SCH ×2 (09:18→20:59)
[2018-11-21] MEDS ORDERED: MORPHINE SULFATE INJ 2 MG INJ IVP PRN (10:00)
[2018-11-21] MEDS: INVANZ INJ 1 GM VIAL 1 GM in NS 100 ML IV + SPIKE MINIBAG* 100 ML IV SCH (10:57)
[2018-11-21] MEDS: PROTONIX INJ 40 MG VIAL IVP SCH ×2 (11:00→20:43)
[2018-11-21] MEDS: LEVSIN/MAALOX/LIDOC VISC PO SCH ×4 (11:00→20:43)
[2018-11-21] MEDS: PEPCID 20 MG IV PREMIX* 20 MG/50 ML BAG IV SCH ×2 (11:00→20:43)
[2018-11-21] MEDS ORDERED: PHARMACY CONSULT - DOSE _____ XX SCH (11:00)
[2018-11-21] MEDS ORDERED: ZOFRAN TAB 4 MG PO PRN (12:43)
[2018-11-21] MEDS ORDERED: ULTRAM PO PRN (12:43)
[2018-11-21] MEDS ORDERED: METHOCARBAMOL 750 MG PO PRN (12:43)
[2018-11-21] MEDS ORDERED: VOLTAREN 1 % GEL MULTI DOSE TUBE TOP PRN (12:43)
[2018-11-21] MEDS ORDERED: PATIENT'S HOME MEDICATION (Glucosamine-Chondroit-Vit C-Mn [Glucosamine Chondroitin Maxstr] PO SCH (12:45)
[2018-11-21] MEDS: NEURONTIN CAP 100 MG PO SCH (13:38)
[2018-11-21] MEDS: ARICEPT TAB 10 MG PO SCH (13:38)
[2018-11-21] MEDS: EFFEXOR XR 75 MG CAP PO SCH (13:38)
[2018-11-21] MEDS: HEMOCYTE-PLUS PO SCH (13:38)
[2018-11-21] MEDS: COZAAR PO SCH (13:38)
[2018-11-21] MEDS: SINGULAIR TAB 10 MG PO SCH (13:38)
[2018-11-21] MEDS: REQUIP PO SCH ×2 (13:38→21:36)
[2018-11-21] MEDS: CULTURELLE PRO-WELL PROBIOTIC CAP PO SCH (13:38)
[2018-11-21] MEDS: NAMENDA TAB 10 MG PO SCH ×2 (13:38→20:44)
[2018-11-21] MEDS: APRESOLINE TAB 25 MG PO SCH ×2 (13:38→21:36)
[2018-11-21] MEDS: COLACE CAP 100 MG PO SCH ×2 (13:43→20:45)
[2018-11-21] MEDS: DUONEB 0.5 MG/3 MG NEB SCH ×2 (14:03→21:00)
[2018-11-21 19:04] LABS: HEMOGLOBIN 11.1 g/dL (12.0-16.0)
[2018-11-21] MEDS: PRAVACHOL PO SCH (20:45)
[2018-11-21] MEDS: NEURONTIN CAP 300 MG PO SCH (20:45)
[2018-11-21] MEDS: LOPRESSOR TAB 25 MG PO SCH (20:45)
[2018-11-22] MEDS: REQUIP PO SCH ×3 (05:24→21:07)
[2018-11-22] MEDS: APRESOLINE TAB 25 MG PO SCH ×3 (05:24→21:07)
[2018-11-22] MEDS: DUONEB 0.5 MG/3 MG NEB SCH ×4 (05:46→21:49)
[2018-11-22 06:25] LABS: BASOPHILS # (AUTO) 0.1 X10^3/uL (0.0-0.1); BASOPHILS % (AUTO) 0.9 % (0.2-1.0); EOSINOPHILS # (AUTO) 0.1 x10^3/uL (0.0-0.2); EOSINOPHILS % (AUTO) 2.3 % (0.9-2.9); HEMATOCRIT 31.3 % (36.0-47.0); HEMOGLOBIN 10.6 g/dL (12.0-16.0); LYMPHOCYTES # (AUTO) 1.5 X10^3/uL (1.3-2.9); MEAN CORPUSCULAR HEMOGLOBIN 30.4 pg (27.0-34.0); MEAN CORPUSCULAR HGB CONC 33.8 g/dL (33.0-35.0); MEAN CORPUSCULAR VOLUME 89.9 fL (80.0-100.0); MEAN PLATELET VOLUME 8.5 fL (7.4-11.0); MONOCYTES # (AUTO) 0.7 x10^3/uL (0.3-0.8); MONOCYTES % (AUTO) 10.8 % (0.0-13.0); PLATELET COUNT 315 X10^3/uL (150.0-450.0); RED BLOOD COUNT 3.48 X10^6/uL (3.5-5.4); RED CELL DISTRIBUTION WIDTH 16.2 % (11.6-16.5); WHITE BLOOD COUNT 6.4 X10^3/uL (3.6-10.0)
[2018-11-22 06:41] LABS: ALANINE AMINOTRANSFERASE 46 Units/L (12-78); ALBUMIN 2.6 g/dL (3.4-5.0); ALKALINE PHOSPHATASE 100 Units/L (46-116); ASPARTATE AMINO TRANSFERASE 34 Units/L (15-37); BLOOD UREA NITROGEN 13 mg/dL (7-18); CALCIUM 8.2 mg/dL (8.5-10.1); CARBON DIOXIDE 29.3 mmol/L (21-32); CHLORIDE 108 mmol/L (98-107); COR CA(FOR HYPOALB) 9.3 mg/dL (8.5-10.1); SODIUM 144 mmol/L (136-145); eGFR NON BLACK RACES 57 (>60)
[2018-11-22] MEDS: PULMICORT NEB TX 0.5 MG NEB SCH ×2 (08:32→20:04)
[2018-11-22] MEDS: INVANZ INJ 1 GM VIAL 1 GM in NS 100 ML IV + SPIKE MINIBAG* 100 ML IV SCH (08:54)
[2018-11-22] MEDS: LEVSIN/MAALOX/LIDOC VISC PO SCH ×4 (08:56→20:38)
[2018-11-22] MEDS: NAMENDA TAB 10 MG PO SCH ×2 (08:57→20:41)
[2018-11-22] MEDS: LOPRESSOR TAB 25 MG PO SCH ×2 (08:57→20:42)
[2018-11-22] MEDS: EFFEXOR XR 75 MG CAP PO SCH (08:57)
[2018-11-22] MEDS: COZAAR PO SCH (08:57)
[2018-11-22] MEDS: PROTONIX INJ 40 MG VIAL IVP SCH ×2 (08:57→20:40)
[2018-11-22] MEDS: LASIX PO SCH (08:57)
[2018-11-22] MEDS: NEURONTIN CAP 100 MG PO SCH (08:57)
[2018-11-22] MEDS: ARICEPT TAB 10 MG PO SCH (08:57)
[2018-11-22] MEDS: CULTURELLE PRO-WELL PROBIOTIC CAP PO SCH (08:57)
[2018-11-22] MEDS: HEMOCYTE-PLUS PO SCH (08:57)
[2018-11-22] MEDS: PEPCID 20 MG IV PREMIX* 20 MG/50 ML BAG IV SCH ×2 (08:58→20:39)
[2018-11-22] MEDS: SINGULAIR TAB 10 MG PO SCH (09:00)
[2018-11-22] MEDS ORDERED: RESTORIL CAP 15 MG PO PRN (19:05)
[2018-11-22] MEDS ORDERED: MAGNESIUM SULFATE 1 GRAM/100 mL PREMIX 1 GM/100 ML BAG IV PRN (20:10)
[2018-11-22] MEDS ORDERED: POTASSIUM CHLORIDE LIQ 20 MEQ UDC PO PRN (20:10)
[2018-11-22] MEDS ORDERED: K-DUR TAB 20 MEQ PO PRN (20:10)
[2018-11-22] MEDS ORDERED: K-RIDER 10 MEQ/NS 100 ML 10 MEQ/100 ML BAG IV PRN (20:10)
[2018-11-22] MEDS ORDERED: MICRO K EXTEN CAP 10 MEQ PO PRN (20:10)
[2018-11-22] MEDS ORDERED: POTASSIUM CHL 40 MEQ/NS 0.45% 500 ML IV PRN (20:10)
[2018-11-22] MEDS ORDERED: KLOR-CON PO PRN (20:10)
[2018-11-22] MEDS ORDERED: POTASSIUM CHL 60 MEQ/NS 0.45% 500 ML IV PRN (20:10)
[2018-11-22] MEDS: COLACE CAP 100 MG PO SCH (20:38)
[2018-11-22] MEDS: PRAVACHOL PO SCH (20:41)
[2018-11-22] MEDS: NEURONTIN CAP 300 MG PO SCH (20:42)
[2018-11-23] MEDS: REQUIP PO SCH (05:53)
[2018-11-23] MEDS: APRESOLINE TAB 25 MG PO SCH (05:53)
[2018-11-23] MEDS: DUONEB 0.5 MG/3 MG NEB SCH (06:17)
[2018-11-23 06:24] LABS: BASOPHILS # (AUTO) 0.1 X10^3/uL (0.0-0.1); EOSINOPHILS # (AUTO) 0.2 x10^3/uL (0.0-0.2); EOSINOPHILS % (AUTO) 2.6 % (0.9-2.9); HEMATOCRIT 32.1 % (36.0-47.0); HEMOGLOBIN 10.8 g/dL (12.0-16.0); LYMPHOCYTES # (AUTO) 1.4 X10^3/uL (1.3-2.9); LYMPHOCYTES % (AUTO) 21.6 % (21.0-51.0); MEAN CORPUSCULAR HEMOGLOBIN 30.3 pg (27.0-34.0); MEAN CORPUSCULAR HGB CONC 33.6 g/dL (33.0-35.0); MEAN CORPUSCULAR VOLUME 90.1 fL (80.0-100.0); MEAN PLATELET VOLUME 7.8 fL (7.4-11.0); MONOCYTES # (AUTO) 0.7 x10^3/uL (0.3-0.8); MONOCYTES % (AUTO) 10.9 % (0.0-13.0); NEUTROPHILS # (AUTO) 4.2 x10^3/uL (2.2-4.8); NEUTROPHILS % (AUTO) 63.9 % (42.0-75.0); PLATELET COUNT 299 X10^3/uL (150.0-450.0); RED BLOOD COUNT 3.56 X10^6/uL (3.5-5.4); RED CELL DISTRIBUTION WIDTH 16.2 % (11.6-16.5); WHITE BLOOD COUNT 6.6 X10^3/uL (3.6-10.0)
[2018-11-23 06:53] LABS: ALANINE AMINOTRANSFERASE 45 Units/L (12-78); ALBUMIN 2.7 g/dL (3.4-5.0); ALKALINE PHOSPHATASE 117 Units/L (46-116); ASPARTATE AMINO TRANSFERASE 30 Units/L (15-37); BLOOD UREA NITROGEN 13 mg/dL (7-18); CALCIUM 8.4 mg/dL (8.5-10.1); CARBON DIOXIDE 29.9 mmol/L (21-32); CHLORIDE 104 mmol/L (98-107); COR CA(FOR HYPOALB) 9.4 mg/dL (8.5-10.1); COR NA(FOR HYPERGLY) 141 mmol/L (136-145); CREATININE 0.99 mg/dL (0.55-1.02); SODIUM 141 mmol/L (136-145); TOTAL PROTEIN 6.4 g/dL (6.4-8.2); eGFR NON BLACK RACES 57 (>60)
[2018-11-23] MEDS: NEURONTIN CAP 100 MG PO SCH (08:50)
[2018-11-23] MEDS: COZAAR PO SCH (08:50)
[2018-11-23] MEDS: ARICEPT TAB 10 MG PO SCH (08:50)
[2018-11-23] MEDS: HEMOCYTE-PLUS PO SCH (08:50)
[2018-11-23] MEDS: LOPRESSOR TAB 25 MG PO SCH (08:50)
[2018-11-23] MEDS: PEPCID 20 MG IV PREMIX* 20 MG/50 ML BAG IV SCH (08:50)
[2018-11-23] MEDS: EFFEXOR XR 75 MG CAP PO SCH (08:51)
[2018-11-23] MEDS: SINGULAIR TAB 10 MG PO SCH (08:51)
[2018-11-23] MEDS: NAMENDA TAB 10 MG PO SCH (08:51)
[2018-11-23] MEDS: LEVSIN/MAALOX/LIDOC VISC PO SCH (08:51)
[2018-11-23] MEDS: CULTURELLE PRO-WELL PROBIOTIC CAP PO SCH (08:51)
[2018-11-23] MEDS: INVANZ INJ 1 GM VIAL 1 GM in NS 100 ML IV + SPIKE MINIBAG* 100 ML IV SCH (08:52)
[2018-11-23] MEDS: PROTONIX INJ 40 MG VIAL IVP SCH (08:52)
[2018-11-23] MEDS: PULMICORT NEB TX 0.5 MG NEB SCH (09:03)
[2018-11-23] MEDS: LASIX PO SCH (09:34)
[2018-11-23 13:43] VITALS: BP 195/76
== END 2018-11-23 13:45 | disposition hospice, home (50) | DRG 812 ==
LOC: ER 03:35 → MED/SURG 03:35 → OBSVTOIN 04:59 → ICU 08:08
PROVIDERS: ADMIT Internal Medicine; ATTEND Internal Medicine
DX: Z85.3 Personal history of malignant neoplasm of breast; W18.39XA Other fall on same level, initial encounter; R06.02 Shortness of breath; D64.89 Other specified anemias; I25.10 Atherosclerotic heart disease of native coronary artery without angina pectoris; I10 Essential (primary) hypertension; J44.9 Chronic obstructive pulmonary disease, unspecified; E78.2 Mixed hyperlipidemia; R53.1 Weakness; K21.9 Gastro-esophageal reflux disease without esophagitis; Z98.42 Cataract extraction status, left eye; N39.0 Urinary tract infection, site not specified; B96.29 Other Escherichia coli [E. coli] as the cause of diseases classified elsewhere; Z90.12 Acquired absence of left breast and nipple; Z96.1 Presence of intraocular lens; R26.89 Other abnormalities of gait and mobility
CPT/HCPCS: 36415; 36430; 36600; 51702; 70450; 71010; 71045; 80053; 81001; 82803; 83735; 83880; 85014; 85018; 85025; 85378; 86850; 86900; 86901; 86922; 87086; 87088; 87186; 94640; 96365; 96374; 96375; 97116; 97162; 97166; 99284; A4222; C9113; P9016; S0028; J1335; J1940; J2060; J2270; J3490; J7040; J7050; J7620; J7626

== ENCOUNTER 2018-12-04 04:57 | Inpatient (IN) ==
--- NOTE | 2018-12-04 05:02 | DR.NAUSEAF ---
HPI Time Seen Time Seen by Provider: 12/04/18 05:00 HPI Comment HPI Comment: Patient admits to nausea and vomiting for three days. Denies fever or diarrhea. Complaints Chief Complaint Doctors Comments: nausea and vomiting Chief Complaint:: Nausea and vomiting PMH PMH Past Medical History: Anemia, Arthritis, Asthma, COPD, Coronary Artery Disease, Dyslipidemia, GERD, Hypertension and [place] Surgical History: Angioplasty/Stents, Hysterectomy and Mastectomy Family History Family Medical History: Coronary Artery Disease and Hypertension Social History Do you use any recreational Drugs:: No ROS Review of Systems Constitutional: No Symptoms Reported Eyes: No Symptoms Reported ENTM: No Symptoms Reported Respiratoy: No Symptoms Reported Cardiovascular: No Symptoms Reported Gastrointestinal/Abdominal: See HPI Genitourinary: No Symptoms Reported Neurological: No Symptoms Reported Musculoskeletal: No Symptoms Reported Integumentary: No Symptoms Reported Hematologic/Lymphatic: No Symptoms Reported Endocrine: No Symptoms Reported Psychiatric: No Symptoms Reported All Other Systems: Reviewed and Negative PE Vital Signs Vitals: Temperature 100.1 F Pulse Rate 75 Respiratory Rate 20 Blood Pressure [Left Calf] 126/56 Blood Pressure [Left Arm] 157/62 Blood Pressure [Right Calf] 168/77 Blood Pressure [Right Arm] 171/66 Blood Pressure 157/66 O2 Sat by Pulse Oximetry 92 General Limitations: No Limitations General Appearance: Alert and In No Apparent Distress Head Head Exam: Normal Inspection, Atraumatic and Normocephalic Eyes Eye exam: Normal Appearance, PERRL and EOMI ENT ENT Exam: Normal Exam, Normal Oropharynx and Normal External Ear Exam Neck Neck Exam: Normal Inspection and Full ROM Chest Chest Inspection: Normal Inspection and Symmetric Chest Wall Rise Respiratory Respiratory Exam: Normal Lung Sounds Bilat Respiratory Exam: Bilateral: Clear to Auscultation Cardiovascular Cardiovascular Exam: Regular Rate and Normal Rhythm Abdominal Exam Abdominal Exam: Normal Inspection, Normal Bowel Sounds and Soft Abdominal Tenderness: RUQ, RLQ and LUQ Rectal Rectal Exam: Deferred External Exam: Female: Deferred : Speculum Exam (Female): Deferred : Bimanual Exam (female): Deferred Extremities Extremities Exam: Normal Inspection, Full ROM and Normal Capillary Refill (decreased turgor) Back Back Exam: Normal Inspection Neurologic Neurological Exam: Alert, Oriented X3 and CN II-XII Intact Psychiatric Psychiatric Exam: Normal Affect Skin Skin Exam: Warm, Dry and Intact COURSE Treatment Treatment: Normal saline Reevaluation 1st: Worsened (unchanged, continues to vomit ) Consultation Called: 07:10 Consultation Comments: Dr. Cohen agreed to admit for further evaluation ROR Labs Reviewed Laboratory Results Reviewed?: Yes Result Diagrams: 12/04/18 05:32 12/04/18 05:32 Laboratory: WBC 9.4 X10^3/uL (3.6-10.0) 12/04/18 05:32 RBC 4.47 X10^6/uL (3.5-5.4) 12/04/18 05:32 Hgb 13.2 g/dL (12.0-16.0) 12/04/18 05:32 Hct 40.0 % (36.0-47.0) 12/04/18 05:32 MCV 89.5 fL (80.0-100.0) 12/04/18 05:32 MCH 29.6 pg (27.0-34.0) 12/04/18 05:32 MCHC 33.1 g/dL (33.0-35.0) 12/04/18 05:32 RDW 14.8 % (11.6-16.5) 12/04/18 05:32 Plt Count 284 X10^3/uL (150.0-450.0) 12/04/18 05:32 MPV 9.6 fL (7.4-11.0) 12/04/18 05:32 Neut % (Auto) 85.6 % (42.0-75.0) H 12/04/18 05:32 Lymph % (Auto) 6.9 % (21.0-51.0) L 12/04/18 05:32 [place] % (Auto) 6.7 % (0.0-13.0) 12/04/18 05:32 Eos % (Auto) 0.3 % (0.9-2.9) L 12/04/18 05:32 Baso % (Auto) 0.5 % (0.2-1.0) 12/04/18 05:32 Neut # (Auto) 8.0 x10^3/uL (2.2-4.8) H 12/04/18 05:32 Lymph # (Auto) 0.6 X10^3/uL (1.3-2.9) L 12/04/18 05:32 [place] # (Auto) 0.6 x10^3/uL (0.3-0.8) 12/04/18 05:32 Eos # (Auto) 0.0 x10^3/uL (0.0-0.2) 12/04/18 05:32 Baso # (Auto) 0.1 X10^3/uL (0.0-0.1) 12/04/18 05:32 Absolute Nucleated RBC 0.0 /100WBC 12/04/18 05:32 Sodium 137 mmol/L (136-145) 12/04/18 05:32 Corrected Sodium 137 mmol/L (136-145) 12/04/18 05:32 Potassium 4.4 mmol/L (3.5-5.1) 12/04/18 05:32 Chloride 103 mmol/L (98-107) 12/04/18 05:32 Carbon Dioxide 23.1 mmol/L (21-32) 12/04/18 05:32 BUN 22 mg/dL (7-18) H 12/04/18 05:32 Creatinine 1.05 mg/dL (0.55-1.02) H 12/04/18 05:32 Est GFR (MDRD) Af Amer > 60 (>60) 12/04/18 05:32 Est GFR (MDRD) Non-Af 53 (>60) L 12/04/18 05:32 Glucose 112 mg/dL (65-99) H 12/04/18 05:32 Calcium 8.9 mg/dL (8.5-10.1) 12/04/18 05:32 Corrected Calcium 9.5 mg/dL (8.5-10.1) 12/04/18 05:32 Total Bilirubin 0.30 mg/dL (0.2-1.0) 12/04/18 05:32 AST 22 Units/L (15-37) 12/04/18 05:32 ALT 21 Units/L (12-78) 12/04/18 05:32 Alkaline Phosphatase 104 Units/L (46-116) 12/04/18 05:32 Total Protein 7.5 g/dL (6.4-8.2) 12/04/18 05:32 Albumin 3.3 g/dL (3.4-5.0) L 12/04/18 05:32 Globulin 4.2 g/dL (2.5-4.5) 12/04/18 05:32 Albumin/Globulin Ratio 0.8 Ratio (1.1-2.1) L 12/04/18 05:32 Diagnosis Discharge Problem: Dehydration, mild Vomiting Qualifiers: Vomiting type: unspecified Vomiting Intractability: non-intractable Nausea pr esence: unspecified Qualified Code(s): R11.10 - Vomiting, unspecified
[2018-12-04] MEDS ORDERED: ZOFRAN INJ 4 MG VIAL IVP ONE (05:21)
[2018-12-04] MEDS ORDERED: ZOFRAN INJ 4 MG VIAL ONE (05:29)
[2018-12-04] MEDS: NS 1000 ML 1,000 ML IV SCH ×4 (05:35→23:03)
[2018-12-04 05:42] LABS: BASOPHILS # (AUTO) 0.1 X10^3/uL (0.0-0.1); BASOPHILS % (AUTO) 0.5 % (0.2-1.0); EOSINOPHILS % (AUTO) 0.3 % (0.9-2.9); HEMOGLOBIN 13.2 g/dL (12.0-16.0); LYMPHOCYTES # (AUTO) 0.6 X10^3/uL (1.3-2.9); LYMPHOCYTES % (AUTO) 6.9 % (21.0-51.0); MEAN CORPUSCULAR HEMOGLOBIN 29.6 pg (27.0-34.0); MEAN CORPUSCULAR HGB CONC 33.1 g/dL (33.0-35.0); MEAN CORPUSCULAR VOLUME 89.5 fL (80.0-100.0); MEAN PLATELET VOLUME 9.6 fL (7.4-11.0); MONOCYTES # (AUTO) 0.6 x10^3/uL (0.3-0.8); MONOCYTES % (AUTO) 6.7 % (0.0-13.0); NEUTROPHILS % (AUTO) 85.6 % (42.0-75.0); PLATELET COUNT 284 X10^3/uL (150.0-450.0); RED BLOOD COUNT 4.47 X10^6/uL (3.5-5.4); RED CELL DISTRIBUTION WIDTH 14.8 % (11.6-16.5); WHITE BLOOD COUNT 9.4 X10^3/uL (3.6-10.0)
[2018-12-04 05:50] LABS: ALANINE AMINOTRANSFERASE 21 Units/L (12-78); ALBUMIN 3.3 g/dL (3.4-5.0); ALKALINE PHOSPHATASE 104 Units/L (46-116); ASPARTATE AMINO TRANSFERASE 22 Units/L (15-37); BLOOD UREA NITROGEN 22 mg/dL (7-18); CALCIUM 8.9 mg/dL (8.5-10.1); CARBON DIOXIDE 23.1 mmol/L (21-32); CHLORIDE 103 mmol/L (98-107); COR CA(FOR HYPOALB) 9.5 mg/dL (8.5-10.1); COR NA(FOR HYPERGLY) 137 mmol/L (136-145); CREATININE 1.05 mg/dL (0.55-1.02); SODIUM 137 mmol/L (136-145); TOTAL PROTEIN 7.5 g/dL (6.4-8.2); eGFR NON BLACK RACES 53 (>60)
[2018-12-04] MEDS ORDERED: VISTARIL PO PRN (07:27)
[2018-12-04] MEDS ORDERED: RESTORIL CAP 15 MG PO PRN (07:27)
[2018-12-04] MEDS ORDERED: ZOFRAN TAB 4 MG SL PRN (07:27)
[2018-12-04] MEDS ORDERED: ULTRAM PO PRN ×2 (07:27→07:43)
[2018-12-04] MEDS ORDERED: ROBITUSSIN DM PO PRN (07:27)
[2018-12-04] MEDS ORDERED: PHENERGAN INJ 25 MG IM PRN (07:27)
[2018-12-04] MEDS ORDERED: TYLENOL SUPP 650 MG PR PRN (07:27)
[2018-12-04] MEDS ORDERED: VOLTAREN 1 % GEL MULTI DOSE TUBE TOP PRN (07:37)
[2018-12-04] MEDS ORDERED: METHOCARBAMOL 750 MG PO PRN (07:37)
[2018-12-04] MEDS ORDERED: ZOFRAN TAB 4 MG PO PRN (07:43)
--- NOTE | 2018-12-04 07:47 | RAD ---
HISTORY: Nausea, vomiting Study: Flat and upright abdomen, PA chest Comparison: 11/21/2018 Findings: The heart is mildly enlarged. No congestive heart failure is noted. The lung castro are clear. No pleural effusions are identified. The abdominal gas pattern is nonspecific and nonobstructive. No pneumoperitoneum is identified. No abnormal masses or abnormal calcifications are identified. The regional skeleton is intact. IMPRESSION: No significant abnormality identified Reported By:
[2018-12-04] MEDS: COZAAR PO SCH (08:19)
[2018-12-04] MEDS: ARICEPT TAB 10 MG PO SCH (08:19)
[2018-12-04] MEDS: HEMOCYTE-PLUS PO SCH (08:20)
[2018-12-04] MEDS: EFFEXOR XR 75 MG CAP PO SCH (08:20)
[2018-12-04] MEDS: NEURONTIN CAP 100 MG PO SCH (08:20)
[2018-12-04] MEDS: NAMENDA TAB 10 MG PO SCH ×2 (08:20→20:00)
[2018-12-04] MEDS: PEPCID TAB 20 MG PO SCH ×2 (08:20→20:00)
[2018-12-04] MEDS: SINGULAIR TAB 10 MG PO SCH (08:21)
[2018-12-04] MEDS: PROTONIX TAB 40 MG PO SCH (08:21)
[2018-12-04] MEDS: PLAVIX PO SCH (08:21)
[2018-12-04] MEDS: VSL#3 PO SCH (08:21)
[2018-12-04] MEDS ORDERED: PEPCID TAB 20 MG PO SCH (09:00)
[2018-12-04] MEDS ORDERED: ASPIRIN EC 81 MG PO SCH (09:00)
[2018-12-04] MEDS ORDERED: LASIX PO SCH (09:00)
[2018-12-04] MEDS ORDERED: PATIENT'S HOME MEDICATION (Glucosamine-Chondroit-Vit C-Mn [Glucosamine Chondroitin Maxstr] PO SCH (09:00)
[2018-12-04] MEDS ORDERED: LOPRESSOR TAB 25 MG PO SCH (09:00)
--- NOTE | 2018-12-04 09:10 | DR.H&P ---
H&P - History & Physical for Day of: H&P Date: 12/04/18 - Chief Complaint Chief Complaint: NAUSEA, VOMITING, DIARRHEA - History of Present Illness History of Present Illness: IS A 83 YEAR OLD PATIENT OF OURS WHO PRESENTED TO THE ER WITH COMPLAINTS OF NAUSEA, VOMITING, AND DIARRHEA X 3 DAYS. SHE HAS BEEN TREATED FOR A URINARY TRACT INFECTION FOR THE PAST TWO WEEKS WITH AUGMENENTIN 875-125MG PO BID. SHE REPORTS THAT SHE IS UNABLE TO HOLD ANY FOODS OR FLUIDS DOWN. ON ARRIVAL, VITALS WERE 100.1-75-20-92%RA-157/66. LABS WERE OBTAINED. ABNORMAL LAB VALUES INCLUDE THE FOLLOWING: BUN 22, CREATININE 1.05, GLUCOSE 112, ALBUMIN 3.3. AN ABDOMINAL SERIES WAS OBTAINED AND REVEALED: NO SIGNIFICANT ABNORMALITY. WE ADMITTED PATIENT FOR FURTHER EVALUATION AND TREATMENT OF INTRACTABLE NAUSEA AND VOMITING AND MILD DEHYDRATION. SHE WAS START ED ON NORMAL SALINE AT 60ML/HR, PHENERGAN 12.5MG IM Q6H PRN, AND HOME MEDICATIONS WERE RESUMED. WE WILL OBTAIN A URINALYSIS AND STOOL STUDIES. OTHERWISE, WE WILL FOLLOW UP WITH AM LABS AND 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. - Past Medical History Past Medical History: [place], Coronary Artery Disease, Hypertension, Dyslipidemia, Anemia, COPD, Asthma, GERD, Arthritis Additional Medical History: Breast and uterine cancer - Past Surgical History Surgical History: Angioplasty/Stents, Hysterectomy, Mastectomy - Family History Family Medical History: Coronary Artery Disease, Hypertension - Social History Does any household member use tobacco: No Alcohol Use: None - Medications Home Medications: levofloxacin [From Levaquin] Allergy (Verified 11/21/18 03:59) New Prescriptions acetaminophen-codeine 1 tab PO TID PRN #12 tab 12/04/18 [Rx] - Review of Systems Constitutional: Fever, Weakness Eyes: No Symptoms Reported ENT: No Symptoms Reported Respiratory: No Symptoms Reported Cardiovascular: No Symptoms Reported Gastrointestinal: See HPI, Nausea, Vomiting, Abdominal Pain, Diarrhea Genitourinary: No Symptoms Reported Musculoskeletal: No Symptoms Reported Skin: No Symptoms Reported Neurological: Weakness - Physical Exam Vital Signs: Temperature 100.1 F Pulse Rate [Right Brachial] 88 Pulse Rate 75 Respiratory Rate 20 Blood Pressure [Left Calf] 126/56 Blood Pressure [Left Arm] 157/62 Blood Pressure [Right Calf] 168/77 Blood Pressure [Right Arm] 152/62 Blood Pressure 157/66 O2 Sat by Pulse Oximetry 92 Oriented: Normal Eyes: Normal Ear: Normal Nose: Normal Throat: Normal Respiratory: Diminished Throughout Cardiovascular: Normal : Normal Auscultation: Bowel Sounds: Increased Palpation: Normal Tenderness: Diffuse, Mild. negative: Rebound, Guarding, Rigidity Skin: Normal Musculoskeletal: Normal Psychiatric: Normal Mood Description: Calm Affect: Normal Speech Pattern: Clear - Assessment/Plan (1) Dehydration, mild Status: Acute (2) Intractable nausea and vomiting Status: Acute (3) C. difficile colitis Status: Acute - Allergies Allergies/Adverse Reactions: Allergies Allergy/AdvReac Type Severity Reaction Status Date / Time levofloxacin [From Levaquin] Allergy Verified 11/21/18 03:59
[2018-12-04] MEDS: PULMICORT NEB TX 0.5 MG NEB SCH ×2 (09:25→20:20)
[2018-12-04] MEDS: DUONEB 0.5 MG/3 MG NEB PRN ×2 (09:25→20:20)
[2018-12-04 09:54] VITALS: BMI 23.4
[2018-12-04] MEDS: COLACE CAP 100 MG PO SCH ×2 (11:45→20:04)
[2018-12-04] MEDS: CORDARONE TAB 200 MG PO SCH (11:48)
[2018-12-04] MEDS: TENORMIN PO SCH (11:49)
[2018-12-04] MEDS: APRESOLINE TAB 25 MG PO SCH ×2 (13:38→21:02)
[2018-12-04] MEDS: REQUIP PO SCH ×2 (13:38→21:02)
[2018-12-04 15:26] LABS: BILIRUBIN,URINE NEGATIVE (NEGATIVE); BLOOD/HEMOGLOBIN,URINE NEGATIVE (NEGATIVE); GLUCOSE, URINE NEGATIVE (NEGATIVE); KETONES,URINE NEGATIVE (NEGATIVE); LEUKOCYTE ESTERASE ,URINE 1+ (NEGATIVE); NITRITES,URINE NEGATIVE (NEGATIVE); PROTEIN,URINE 3+ (NEGATIVE); UROBILINOGEN,URINE NORMAL (NORMAL)
[2018-12-04 15:36] LABS: AMORPHOUS SEDIMENT,UR 3+ /HPF (NEGATIVE); APPEARANCE,URINE HAZY (CLEAR); BACTERIA,URINE TRACE /HPF (NEGATIVE); COLOR,URINE DARK YELLOW (YELLOW); HYALINE CASTS, URINE MODERATE /LPF (NEGATIVE); RBC,URINE 0-2 /HPF (NONE SEEN); SQUAMOUS EPITHELIAL CELL,UR FEW /HPF (NEGATIVE)
[2018-12-04 15:52] LABS: STOOL FOR WBC POSITIVE (NEGATIVE)
[2018-12-04 16:18] LABS: CRYPTOSPORIDIUM PARVUM ANTIGEN NEGATIVE (NEGATIVE); GIARDIA LAMBLIA ANTIGEN NEGATIVE (NEGATIVE)
[2018-12-04] MEDS: NEURONTIN CAP 300 MG PO SCH (20:00)
[2018-12-04] MEDS: PRAVACHOL PO SCH (20:00)
[2018-12-05] MEDS ORDERED: BUTT CREAM (COMPOUND) TOP PRN (02:52)
[2018-12-05] MEDS: APRESOLINE TAB 25 MG PO SCH ×3 (05:12→21:00)
[2018-12-05] MEDS: REQUIP PO SCH ×3 (05:12→21:00)
[2018-12-05] MEDS: DUONEB 0.5 MG/3 MG NEB PRN ×3 (05:20→21:05)
[2018-12-05 05:34] LABS: BASOPHILS % (AUTO) 0.5 % (0.2-1.0); HEMATOCRIT 37.1 % (36.0-47.0); HEMOGLOBIN 12.3 g/dL (12.0-16.0); LYMPHOCYTES # (AUTO) 0.9 X10^3/uL (1.3-2.9); MEAN CORPUSCULAR HEMOGLOBIN 29.9 pg (27.0-34.0); MEAN CORPUSCULAR HGB CONC 33.2 g/dL (33.0-35.0); MEAN PLATELET VOLUME 10.3 fL (7.4-11.0); MONOCYTES # (AUTO) 0.8 x10^3/uL (0.3-0.8); MONOCYTES % (AUTO) 10.6 % (0.0-13.0); NEUTROPHILS # (AUTO) 5.8 x10^3/uL (2.2-4.8); NEUTROPHILS % (AUTO) 76.9 % (42.0-75.0); PLATELET COUNT 280 X10^3/uL (150.0-450.0); RED BLOOD COUNT 4.12 X10^6/uL (3.5-5.4); RED CELL DISTRIBUTION WIDTH 15.3 % (11.6-16.5); WHITE BLOOD COUNT 7.5 X10^3/uL (3.6-10.0)
[2018-12-05 05:36] LABS: ALANINE AMINOTRANSFERASE 20 Units/L (12-78); ALBUMIN 2.9 g/dL (3.4-5.0); ALKALINE PHOSPHATASE 81 Units/L (46-116); ASPARTATE AMINO TRANSFERASE 20 Units/L (15-37); BLOOD UREA NITROGEN 42 mg/dL (7-18); CALCIUM 8.6 mg/dL (8.5-10.1); CARBON DIOXIDE 19.3 mmol/L (21-32); CHLORIDE 108 mmol/L (98-107); COR CA(FOR HYPOALB) 9.5 mg/dL (8.5-10.1); CREATININE 1.86 mg/dL (0.55-1.02); SODIUM 141 mmol/L (136-145); TOTAL PROTEIN 6.6 g/dL (6.4-8.2); eGFR NON BLACK RACES 28 (>60)
[2018-12-05] MEDS: PULMICORT NEB TX 0.5 MG NEB SCH ×2 (08:00→21:05)
[2018-12-05] MEDS: PLAVIX PO SCH (09:00)
[2018-12-05] MEDS: TENORMIN PO SCH (09:01)
[2018-12-05] MEDS: SINGULAIR TAB 10 MG PO SCH (09:01)
[2018-12-05] MEDS: HEMOCYTE-PLUS PO SCH (09:01)
[2018-12-05] MEDS: NEURONTIN CAP 100 MG PO SCH (09:01)
[2018-12-05] MEDS: ARICEPT TAB 10 MG PO SCH (09:01)
[2018-12-05] MEDS: EFFEXOR XR 75 MG CAP PO SCH (09:01)
[2018-12-05] MEDS: VSL#3 PO SCH (09:01)
[2018-12-05] MEDS: PROTONIX TAB 40 MG PO SCH (09:01)
[2018-12-05] MEDS: CORDARONE TAB 200 MG PO SCH (09:02)
[2018-12-05] MEDS: PEPCID TAB 20 MG PO SCH (09:02)
[2018-12-05] MEDS: NAMENDA TAB 10 MG PO SCH ×2 (09:02→21:02)
[2018-12-05] MEDS: COZAAR PO SCH (09:02)
[2018-12-05] MEDS: NS 1000 ML 1,000 ML IV SCH (09:19)
[2018-12-05] MEDS: FLAGYL TAB 500 MG PO SCH ×3 (11:45→21:01)
[2018-12-05] MEDS: PRAVACHOL PO SCH (21:00)
[2018-12-05] MEDS: NEURONTIN CAP 300 MG PO SCH (21:02)
[2018-12-05] MEDS: COLACE CAP 100 MG PO SCH (21:02)
[2018-12-06] MEDS: FLAGYL TAB 500 MG PO SCH ×3 (05:08→21:44)
[2018-12-06] MEDS: REQUIP PO SCH ×3 (05:09→21:45)
[2018-12-06] MEDS: APRESOLINE TAB 25 MG PO SCH ×3 (05:09→21:45)
[2018-12-06 05:30] LABS: BASOPHILS % (AUTO) 0.5 % (0.2-1.0); EOSINOPHILS % (AUTO) 0.2 % (0.9-2.9); HEMATOCRIT 33.1 % (36.0-47.0); HEMOGLOBIN 10.8 g/dL (12.0-16.0); LYMPHOCYTES # (AUTO) 1.1 X10^3/uL (1.3-2.9); MEAN CORPUSCULAR HEMOGLOBIN 29.5 pg (27.0-34.0); MEAN CORPUSCULAR HGB CONC 32.7 g/dL (33.0-35.0); MEAN CORPUSCULAR VOLUME 90.2 fL (80.0-100.0); MEAN PLATELET VOLUME 9.8 fL (7.4-11.0); MONOCYTES # (AUTO) 0.5 x10^3/uL (0.3-0.8); MONOCYTES % (AUTO) 11.8 % (0.0-13.0); NEUTROPHILS % (AUTO) 64.5 % (42.0-75.0); PLATELET COUNT 238 X10^3/uL (150.0-450.0); RED BLOOD COUNT 3.67 X10^6/uL (3.5-5.4); RED CELL DISTRIBUTION WIDTH 15.6 % (11.6-16.5); WHITE BLOOD COUNT 4.6 X10^3/uL (3.6-10.0)
[2018-12-06 05:37] LABS: ALANINE AMINOTRANSFERASE 18 Units/L (12-78); ALBUMIN 2.5 g/dL (3.4-5.0); ALKALINE PHOSPHATASE 67 Units/L (46-116); ASPARTATE AMINO TRANSFERASE 20 Units/L (15-37); BLOOD UREA NITROGEN 38 mg/dL (7-18); CALCIUM 8.1 mg/dL (8.5-10.1); CARBON DIOXIDE 16.3 mmol/L (21-32); CHLORIDE 111 mmol/L (98-107); COR CA(FOR HYPOALB) 9.3 mg/dL (8.5-10.1); CREATININE 1.51 mg/dL (0.55-1.02); SODIUM 140 mmol/L (136-145); TOTAL PROTEIN 5.7 g/dL (6.4-8.2); eGFR NON BLACK RACES 35 (>60)
[2018-12-06] MEDS: NS 1000 ML 1,000 ML IV SCH ×2 (07:04→12:22)
[2018-12-06] MEDS: PULMICORT NEB TX 0.5 MG NEB SCH ×2 (08:53→21:12)
[2018-12-06] MEDS: CORDARONE TAB 200 MG PO SCH (09:12)
[2018-12-06] MEDS: ARICEPT TAB 10 MG PO SCH (09:12)
[2018-12-06] MEDS: NEURONTIN CAP 100 MG PO SCH (09:13)
[2018-12-06] MEDS: HEMOCYTE-PLUS PO SCH (09:13)
[2018-12-06] MEDS: EFFEXOR XR 75 MG CAP PO SCH (09:13)
[2018-12-06] MEDS: COZAAR PO SCH (09:13)
[2018-12-06] MEDS: NAMENDA TAB 10 MG PO SCH ×2 (09:13→21:44)
[2018-12-06] MEDS: PEPCID TAB 20 MG PO SCH (09:13)
[2018-12-06] MEDS: PLAVIX PO SCH (09:14)
[2018-12-06] MEDS: SINGULAIR TAB 10 MG PO SCH (09:14)
[2018-12-06] MEDS: PROTONIX TAB 40 MG PO SCH (09:14)
[2018-12-06] MEDS: TENORMIN PO SCH (09:15)
[2018-12-06] MEDS: VSL#3 PO SCH (09:15)
[2018-12-06] MEDS ORDERED: DIFLUCAN 200 MG IV PREMIX* 200 MG/100 ML BAG ONE (12:27)
[2018-12-06] MEDS: DIFLUCAN 200 MG IV PREMIX* 200 MG/100 ML BAG IV SCH (12:36)
[2018-12-06] MEDS ORDERED: PHARMACY CONSULT - DOSE _____ XX SCH (13:00)
[2018-12-06] MEDS: COLACE CAP 100 MG PO SCH (21:43)
[2018-12-06] MEDS: NEURONTIN CAP 300 MG PO SCH (21:44)
[2018-12-06] MEDS: PRAVACHOL PO SCH (21:45)
--- NOTE | 2018-12-06 22:10 | PCM.PROG ---
Progress Note - Progress Note for Day of Date of Exam: 12/05/18 - Subjective Subjective: WAS ADMITTED FOR DEHYDRATION DUE TO INTRACTABLE VOMITING AND DIARRHEA. TODAY, SHE IS ALERT AND ORIENTED, LYING IN BED ON MORNING ROUNDS. SHE CONTINUES WITH NAUSEA AND DIARRHEA TODAY. ABDOMEN IS NOTED WITH DIFFUSE TENDERNESS. HER VITALS THIS MORNING ARE 98.1-76-18-97%-125/60. LABS WERE OBTAINED. ABNORMAL LAB VALUES INCLUDE THE FOLLOWING: CHLORIDE 108, CARBON DIOXIDE 19.3, BUN 42, CREATININE 1.86, ALBUMIN 2.9. STOOL STUDIES WERE OBTAINED YESTERDAY. STOOL IS POSITIVE FOR WHITE CELLS AND C.DIFF. A STOOL CULTURE IS PENDING. TODAY, WE WILL START FLAGYL 500MG PO TID. OTHERWISE, WE WILL CONTINUE WITH CURRENT PLAN OF CARE. WE PLAN TO FOLLOW UP WITH AM LABS AND 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. - Past Medical Family Social History Past Med/Fam/Surg Hx: No changes since H&P Allergies: Allergies levofloxacin [From Levaquin] Allergy (Verified 11/21/18 03:59) - Review of Systems ROS: No change since H&P - Vital Signs and I&O's Vital Signs: Temperature 98.3 F Pulse Rate [Right Brachial] 62 Pulse Rate 90 Respiratory Rate 18 Blood Pressure [Left Calf] 126/56 Blood Pressure [Left Arm] 150/65 Blood Pressure [Right Calf] 168/77 Blood Pressure [Right Arm] 152/62 Blood Pressure 157/66 O2 Sat by Pulse Oximetry 92 Intake and Output: Intake & Output 12/04/18 12/05/18 12/06/18 12/07/18 11:59 11:59 11:59 11:59 Intake Total 1370 / 1370 3060 / 3060 1020 / 1020 Output Total 0 / 0 Balance 1370 / 1370 3060 / 3060 1020 / 1020 - Physical Exam Oriented: Normal Eyes: Normal Ear: Normal Nose: Normal Throat: Normal Respiratory: Generalized, Diminished Cardiovascular: Normal : Normal Auscultation: Bowel Sounds: Normal, Increased Palpation: Normal Tenderness: Diffuse, Mild. negative: Rebound, Guarding, Rigidity Skin: Normal Musculoskeletal: Normal Psychiatric: Normal Mood Description: Calm Affect: Normal Speech Pattern: Clear - Laboratory and Diagnostics Result Diagrams: 12/06/18 04:25 12/06/18 04:25 Labs: 12/04/18 15:05 Stool Stool Culture - Preliminary 12/04/18 15:05 Stool - Final Laboratory WBC 4.6 X10^3/uL (3.6-10.0) 12/06/18 04:25 RBC 3.67 X10^6/uL (3.5-5.4) 12/06/18 04:25 Hgb 10.8 g/dL (12.0-16.0) L 12/06/18 04:25 Hct 33.1 % (36.0-47.0) L 12/06/18 04:25 MCV 90.2 fL (80.0-100.0) 12/06/18 04:25 MCH 29.5 pg (27.0-34.0) 12/06/18 04:25 MCHC 32.7 g/dL (33.0-35.0) L 12/06/18 04:25 RDW 15.6 % (11.6-16.5) 12/06/18 04:25 Plt Count 238 X10^3/uL (150.0-450.0) 12/06/18 04:25 MPV 9.8 fL (7.4-11.0) 12/06/18 04:25 Neut % (Auto) 64.5 % (42.0-75.0) 12/06/18 04:25 Lymph % (Auto) 23.0 % (21.0-51.0) 12/06/18 04:25 [place] % (Auto) 11.8 % (0.0-13.0) 12/06/18 04:25 Eos % (Auto) 0.2 % (0.9-2.9) L 12/06/18 04:25 Baso % (Auto) 0.5 % (0.2-1.0) 12/06/18 04:25 Neut # (Auto) 3.0 x10^3/uL (2.2-4.8) 12/06/18 04:25 Lymph # (Auto) 1.1 X10^3/uL (1.3-2.9) L 12/06/18 04:25 [place] # (Auto) 0.5 x10^3/uL (0.3-0.8) 12/06/18 04:25 Eos # (Auto) 0.0 x10^3/uL (0.0-0.2) 12/06/18 04:25 Baso # (Auto) 0.0 X10^3/uL (0.0-0.1) 12/06/18 04:25 Absolute Nucleated RBC 0.1 /100WBC 12/06/18 04:25 Sodium 140 mmol/L (136-145) 12/06/18 04:25 Corrected Sodium TNP 12/06/18 04:25 Potassium 3.7 mmol/L (3.5-5.1) 12/06/18 04:25 Chloride 111 mmol/L (98-107) H 12/06/18 04:25 Carbon Dioxide 16.3 mmol/L (21-32) L 12/06/18 04:25 BUN 38 mg/dL (7-18) H 12/06/18 04:25 Creatinine 1.51 mg/dL (0.55-1.02) H 12/06/18 04:25 Est GFR (MDRD) Af Amer 43 (>60) L 12/06/18 04:25 Est GFR (MDRD) Non-Af 35 (>60) L 12/06/18 04:25 Glucose 99 mg/dL (65-99) 12/06/18 04:25 Calcium 8.1 mg/dL (8.5-10.1) L 12/06/18 04:25 Corrected Calcium 9.3 mg/dL (8.5-10.1) 12/06/18 04:25 Total Bilirubin 0.10 mg/dL (0.2-1.0) L 12/06/18 04:25 AST 20 Units/L (15-37) 12/06/18 04:25 ALT 18 Units/L (12-78) 12/06/18 04:25 Alkaline Phosphatase 67 Units/L (46-116) 12/06/18 04:25 Total Protein 5.7 g/dL (6.4-8.2) L 12/06/18 04:25 Albumin 2.5 g/dL (3.4-5.0) L 12/06/18 04:25 Globulin 3.2 g/dL (2.5-4.5) 12/06/18 04:25 Albumin/Globulin Ratio 0.8 Ratio (1.1-2.1) L 12/06/18 04:25 Specimen Type Catherized urine 12/04/18 15:05 Urine Color Dark yellow (YELLOW) 12/04/18 15:05 Urine Appearance Hazy (CLEAR) 12/04/18 15:05 Urine pH 5.0 (5.0 - 8.0) 12/04/18 15:05 Ur Specific [place] 1.025 (1.000-1.030) 12/04/18 15:05 Urine Protein 3+ (NEGATIVE) 12/04/18 15:05 Urine Glucose (UA) Negative (NEGATIVE) 12/04/18 15:05 Urine Ketones Negative (NEGATIVE) 12/04/18 15:05 Urine Occult Blood Negative (NEGATIVE) 12/04/18 15:05 Urine Nitrite Negative (NEGATIVE) 12/04/18 15:05 Urine Bilirubin Negative (NEGATIVE) 12/04/18 15:05 Urine Urobilinogen Normal (NORMAL) 12/04/18 15:05 Ur Leukocyte Esterase 1+ (NEGATIVE) 12/04/18 15:05 Urine RBC 0-2 /HPF (NONE SEEN) 12/04/18 15:05 Urine WBC 0-2 /HPF (NONE SEEN) 12/04/18 15:05 Ur Squamous Epith Cells Few /HPF (NEGATIVE) 12/04/18 15:05 Amorphous Sediment 3+ /HPF (NEGATIVE) 12/04/18 15:05 Urine Bacteria Trace /HPF (NEGATIVE) 12/04/18 15:05 Hyaline Casts Moderate /LPF (NEGATIVE) 12/04/18 15:05 Ur Culture Indicated? No/not indicated 12/04/18 15:05 Stool Description 10g mucoid brown 12/04/18 15:05 Stl Occult Blood (IFOB) Negative (NEGATIVE) 12/04/18 15:05 Stool for White Cells Positive (NEGATIVE) A 12/04/18 15:05 Stl C. diff Tox B Gene Positive (NEGATIVE) A 12/04/18 15:05 Stl C. diff 027-NAP1-BI Negative (NEGATIVE) 12/04/18 15:05 C. difficile Toxin A&B Positive (NEGATIVE) A 12/04/18 15:05 Cryptosporid parvum Ag Negative (NEGATIVE) 12/04/18 15:05 Giardia lamblia Ag Negative (NEGATIVE) 12/04/18 15:05 - Plan (1) Dehydration, mild Status: Acute Plan: NORMAL SALINE AT 60ML/HR, 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 (2) Intractable nausea and vomiting Status: Acute (3) C. difficile colitis Status: Acute Plan: FLAGYL 500MG PO TID, 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
[2018-12-07 05:38] LABS: HEMATOCRIT 30.8 % (36.0-47.0); HEMOGLOBIN 10.3 g/dL (12.0-16.0); LYMPHOCYTES % (AUTO) 27.8 % (21.0-51.0); MEAN CORPUSCULAR HEMOGLOBIN 29.8 pg (27.0-34.0); MEAN CORPUSCULAR HGB CONC 33.4 g/dL (33.0-35.0); MEAN CORPUSCULAR VOLUME 89.2 fL (80.0-100.0); MEAN PLATELET VOLUME 9.6 fL (7.4-11.0); MONOCYTES # (AUTO) 0.5 x10^3/uL (0.3-0.8); MONOCYTES % (AUTO) 14.5 % (0.0-13.0); NEUTROPHILS # (AUTO) 2.1 x10^3/uL (2.2-4.8); NEUTROPHILS % (AUTO) 55.7 % (42.0-75.0); PLATELET COUNT 224 X10^3/uL (150.0-450.0); RED BLOOD COUNT 3.45 X10^6/uL (3.5-5.4); WHITE BLOOD COUNT 3.7 X10^3/uL (3.6-10.0)
[2018-12-07 05:44] LABS: ALANINE AMINOTRANSFERASE 15 Units/L (12-78); ALBUMIN 2.5 g/dL (3.4-5.0); ALKALINE PHOSPHATASE 65 Units/L (46-116); ASPARTATE AMINO TRANSFERASE 21 Units/L (15-37); BLOOD UREA NITROGEN 22 mg/dL (7-18); CALCIUM 7.9 mg/dL (8.5-10.1); COR CA(FOR HYPOALB) 9.1 mg/dL (8.5-10.1); CREATININE 1.04 mg/dL (0.55-1.02); SODIUM 142 mmol/L (136-145); TOTAL PROTEIN 5.7 g/dL (6.4-8.2); eGFR NON BLACK RACES 54 (>60)
[2018-12-07] MEDS: REQUIP PO SCH ×3 (06:05→21:42)
[2018-12-07] MEDS: FLAGYL TAB 500 MG PO SCH ×3 (06:05→21:44)
[2018-12-07] MEDS: APRESOLINE TAB 25 MG PO SCH ×3 (06:05→21:43)
[2018-12-07] MEDS: NS 1000 ML 1,000 ML IV SCH ×2 (06:06→13:15)
[2018-12-07 06:28] LABS: CARBON DIOXIDE 14.7 mmol/L (21-32); CHLORIDE 115 mmol/L (98-107)
[2018-12-07] MEDS ORDERED: POTASSIUM CHL 60 MEQ/NS 0.45% 500 ML IV PRN (06:32)
[2018-12-07] MEDS ORDERED: MICRO K EXTEN CAP 10 MEQ PO PRN (06:32)
[2018-12-07] MEDS ORDERED: POTASSIUM CHL 40 MEQ/NS 0.45% 500 ML IV PRN (06:32)
[2018-12-07] MEDS ORDERED: K-DUR TAB 20 MEQ PO PRN (06:32)
[2018-12-07] MEDS ORDERED: POTASSIUM CHLORIDE LIQ 20 MEQ UDC PO PRN (06:32)
[2018-12-07] MEDS ORDERED: K-RIDER 10 MEQ/NS 100 ML 10 MEQ/100 ML BAG IV PRN (06:32)
[2018-12-07] MEDS ORDERED: KLOR-CON PO PRN (06:32)
[2018-12-07] MEDS: CORDARONE TAB 200 MG PO SCH (08:13)
[2018-12-07] MEDS: ARICEPT TAB 10 MG PO SCH (08:13)
[2018-12-07] MEDS: EFFEXOR XR 75 MG CAP PO SCH (08:14)
[2018-12-07] MEDS: HEMOCYTE-PLUS PO SCH (08:14)
[2018-12-07] MEDS: DIFLUCAN 200 MG IV PREMIX* 200 MG/100 ML BAG IV SCH (08:14)
[2018-12-07] MEDS: COZAAR PO SCH (08:14)
[2018-12-07] MEDS: PEPCID TAB 20 MG PO SCH (08:15)
[2018-12-07] MEDS: NAMENDA TAB 10 MG PO SCH ×2 (08:15→21:44)
[2018-12-07] MEDS: PLAVIX PO SCH (08:15)
[2018-12-07] MEDS: NEURONTIN CAP 100 MG PO SCH (08:15)
[2018-12-07] MEDS: SINGULAIR TAB 10 MG PO SCH (08:16)
[2018-12-07] MEDS: VSL#3 PO SCH (08:16)
[2018-12-07] MEDS: PROTONIX TAB 40 MG PO SCH (08:16)
[2018-12-07] MEDS: TENORMIN PO SCH (08:16)
[2018-12-07] MEDS: PULMICORT NEB TX 0.5 MG NEB SCH ×2 (08:28→20:54)
[2018-12-07] MEDS: DUONEB 0.5 MG/3 MG NEB PRN ×2 (08:28→22:40)
[2018-12-07] MEDS: COLACE CAP 100 MG PO SCH (21:43)
[2018-12-07] MEDS: NEURONTIN CAP 300 MG PO SCH (21:43)
[2018-12-07] MEDS: PRAVACHOL PO SCH (21:44)
[2018-12-07] MEDS ORDERED: LASIX IVP ONE ×2 (23:15→23:45)
[2018-12-07 23:23] LABS: ABG BASE EXCESS -12.9 mmol/L (-2.0-2.0)
[2018-12-07 23:24] LABS: ABG ALLEN TEST POS
[2018-12-07 23:54] LABS: BILIRUBIN,URINE NEGATIVE (NEGATIVE); BLOOD/HEMOGLOBIN,URINE NEGATIVE (NEGATIVE); GLUCOSE, URINE NEGATIVE (NEGATIVE); KETONES,URINE NEGATIVE (NEGATIVE); LEUKOCYTE ESTERASE ,URINE 2+ (NEGATIVE); NITRITES,URINE POSITIVE (NEGATIVE); PROTEIN,URINE 2+ (NEGATIVE); UROBILINOGEN,URINE NORMAL (NORMAL)
[2018-12-08 00:03] LABS: APPEARANCE,URINE HAZY (CLEAR); COLOR,URINE YELLOW (YELLOW)
[2018-12-08 00:04] LABS: BACTERIA,URINE 4+ /HPF (NEGATIVE); RBC,URINE NONE SEEN /HPF (NONE SEEN); SQUAMOUS EPITHELIAL CELL,UR NEGATIVE /HPF (NEGATIVE)
[2018-12-08] MEDS: NS 1000 ML 1,000 ML IV SCH (01:00)
[2018-12-08] MEDS: DUONEB 0.5 MG/3 MG NEB PRN ×3 (04:47→20:08)
[2018-12-08] MEDS ORDERED: NS 250 ML IV 0 ML ONE (05:33)
[2018-12-08 05:35] LABS: BASOPHILS % (AUTO) 0.5 % (0.2-1.0); HEMATOCRIT 35.1 % (36.0-47.0); HEMOGLOBIN 11.5 g/dL (12.0-16.0); LYMPHOCYTES # (AUTO) 0.8 X10^3/uL (1.3-2.9); LYMPHOCYTES % (AUTO) 16.5 % (21.0-51.0); MEAN CORPUSCULAR HEMOGLOBIN 29.6 pg (27.0-34.0); MEAN CORPUSCULAR HGB CONC 32.9 g/dL (33.0-35.0); MEAN CORPUSCULAR VOLUME 89.8 fL (80.0-100.0); MONOCYTES # (AUTO) 0.5 x10^3/uL (0.3-0.8); MONOCYTES % (AUTO) 10.1 % (0.0-13.0); NEUTROPHILS # (AUTO) 3.5 x10^3/uL (2.2-4.8); NEUTROPHILS % (AUTO) 72.9 % (42.0-75.0); PLATELET COUNT 247 X10^3/uL (150.0-450.0); RED CELL DISTRIBUTION WIDTH 15.2 % (11.6-16.5); WHITE BLOOD COUNT 4.8 X10^3/uL (3.6-10.0)
--- NOTE | 2018-12-08 05:51 | RAD ---
Examination: AP chest History: SOB, breast cancer, COPD Comparison 11/21/2018, 10/21/2018 Findings: Continued normal heart size. Diffuse coarse interstitial increase in the lungs which has progressed since 10/21/2018 and 11/21/2018. No focal mass or localized consolidation or pleural fluid. Surgical clips left axilla. Impression: Progression of interstitial pulmonary findings especially since 10/21/2018. This may represent perivascular edema, acute inflammatory process or metastatic process. Correlate clinically with appropriate follow-up. Reported By:
[2018-12-08 06:07] LABS: ALANINE AMINOTRANSFERASE 54 Units/L (12-78); ALKALINE PHOSPHATASE 109 Units/L (46-116); ASPARTATE AMINO TRANSFERASE 57 Units/L (15-37); BLOOD UREA NITROGEN 17 mg/dL (7-18); CALCIUM 8.3 mg/dL (8.5-10.1); CHLORIDE 110 mmol/L (98-107); COR CA(FOR HYPOALB) 9.1 mg/dL (8.5-10.1); CREATININE 1.07 mg/dL (0.55-1.02); MAGNESIUM 1.9 mg/dL (1.7-2.9); SODIUM 142 mmol/L (136-145); TOTAL PROTEIN 6.6 g/dL (6.4-8.2); eGFR NON BLACK RACES 52 (>60)
[2018-12-08] MEDS: FLAGYL TAB 500 MG PO SCH ×3 (06:15→21:32)
[2018-12-08] MEDS: APRESOLINE TAB 25 MG PO SCH ×3 (06:15→21:32)
[2018-12-08] MEDS: REQUIP PO SCH ×3 (06:15→21:33)
[2018-12-08] MEDS: ARICEPT TAB 10 MG PO SCH (08:23)
[2018-12-08] MEDS: DIFLUCAN 200 MG IV PREMIX* 200 MG/100 ML BAG IV SCH (08:24)
[2018-12-08] MEDS: COZAAR PO SCH (08:24)
[2018-12-08] MEDS: EFFEXOR XR 75 MG CAP PO SCH (08:24)
[2018-12-08] MEDS: PEPCID TAB 20 MG PO SCH (08:25)
[2018-12-08] MEDS: NAMENDA TAB 10 MG PO SCH ×2 (08:25→21:32)
[2018-12-08] MEDS: NEURONTIN CAP 100 MG PO SCH (08:25)
[2018-12-08] MEDS: HEMOCYTE-PLUS PO SCH (08:25)
[2018-12-08] MEDS: PROTONIX TAB 40 MG PO SCH (08:26)
[2018-12-08] MEDS: SINGULAIR TAB 10 MG PO SCH (08:26)
[2018-12-08] MEDS: VSL#3 PO SCH (08:27)
[2018-12-08] MEDS: CORDARONE TAB 200 MG PO SCH (08:27)
[2018-12-08] MEDS: TENORMIN PO SCH (08:27)
[2018-12-08] MEDS: PLAVIX PO SCH (08:28)
[2018-12-08] MEDS: PULMICORT NEB TX 0.5 MG NEB SCH ×2 (09:21→20:07)
[2018-12-08] MEDS: COLACE CAP 100 MG PO SCH (21:31)
[2018-12-08] MEDS: NEURONTIN CAP 300 MG PO SCH (21:32)
[2018-12-08] MEDS: PRAVACHOL PO SCH (21:32)
--- NOTE | 2018-12-08 23:51 | PCM.PROG ---
Progress Note - Progress Note for Day of Date of Exam: 12/06/18 - Subjective Subjective: WAS ADMITTED FOR DEHYDRATION DUE TO INTRACTABLE VOMITING AND DIARRHEA. TODAY, SHE IS ALERT AND ORIENTED, LYING IN BED ON MORNING ROUNDS. SHE CONTINUES WITH NAUSEA AND DIARRHEA TODAY. ABDOMEN IS NOTED WITH DIFFUSE TENDERNESS. HER VITALS THIS MORNING ARE 98.1-76-18-97%-125/60. LABS WERE OBTAINED. ABNORMAL LAB VALUES INCLUDE THE FOLLOWING: CHLORIDE 108, CARBON DIOXIDE 19.3, BUN 42, CREATININE 1.86, ALBUMIN 2.9. STOOL STUDIES WERE OBTAINED YESTERDAY. STOOL IS POSITIVE FOR WHITE CELLS AND C.DIFF. A STOOL CULTURE IS PENDING. TODAY, WE WILL START FLAGYL 500MG PO TID. OTHERWISE, WE WILL CONTINUE WITH CURRENT PLAN OF CARE. WE PLAN TO FOLLOW UP WITH AM LABS AND 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. - Past Medical Family Social History Past Med/Fam/Surg Hx: No changes since H&P Allergies: Allergies levofloxacin [From Levaquin] Allergy (Verified 11/21/18 03:59) - Review of Systems ROS: No change since H&P - Vital Signs and I&O's Vital Signs: Temperature 98.3 F Pulse Rate [Right Brachial] 81 Pulse Rate 68 Respiratory Rate 27 Blood Pressure [Left Calf] 126/56 Blood Pressure [Left Arm] 216/103 Blood Pressure [Right Calf] 168/77 Blood Pressure [Right Arm] 152/62 Blood Pressure 152/71 O2 Sat by Pulse Oximetry 99 Intake and Output: Intake & Output 12/06/18 12/07/18 12/08/18 12/09/18 11:59 11:59 11:59 11:59 Intake Total 3060 / 3060 1760 / 1760 1160 / 1160 940 / 940 Output Total 1200 / 1200 500 / 500 Balance 3060 / 3060 1760 / 1760 -40 / -40 440 / 440 - Physical Exam Oriented: Normal Eyes: Normal Ear: Normal Nose: Normal Throat: Normal Respiratory: Generalized, Diminished Cardiovascular: Normal : Normal Auscultation: Bowel Sounds: Normal, Increased Palpation: Normal Tenderness: Diffuse, Mild. negative: Rebound, Guarding, Rigidity Skin: Normal Musculoskeletal: Normal Psychiatric: Normal Mood Description: Calm Affect: Normal Speech Pattern: Clear, Appropriate - Laboratory and Diagnostics Result Diagrams: 12/08/18 04:16 12/08/18 04:16 Labs: 12/04/18 15:05 Stool Stool Culture - Final 12/04/18 15:05 Stool - Final Laboratory WBC 4.8 X10^3/uL (3.6-10.0) 12/08/18 04:16 RBC 3.90 X10^6/uL (3.5-5.4) 12/08/18 04:16 Hgb 11.5 g/dL (12.0-16.0) L 12/08/18 04:16 Hct 35.1 % (36.0-47.0) L 12/08/18 04:16 MCV 89.8 fL (80.0-100.0) 12/08/18 04:16 MCH 29.6 pg (27.0-34.0) 12/08/18 04:16 MCHC 32.9 g/dL (33.0-35.0) L 12/08/18 04:16 RDW 15.2 % (11.6-16.5) 12/08/18 04:16 Plt Count 247 X10^3/uL (150.0-450.0) 12/08/18 04:16 MPV 10.0 fL (7.4-11.0) 12/08/18 04:16 Neut % (Auto) 72.9 % (42.0-75.0) 12/08/18 04:16 Lymph % (Auto) 16.5 % (21.0-51.0) L 12/08/18 04:16 [place] % (Auto) 10.1 % (0.0-13.0) 12/08/18 04:16 Eos % (Auto) 0.0 % (0.9-2.9) L 12/08/18 04:16 Baso % (Auto) 0.5 % (0.2-1.0) 12/08/18 04:16 Neut # (Auto) 3.5 x10^3/uL (2.2-4.8) 12/08/18 04:16 Lymph # (Auto) 0.8 X10^3/uL (1.3-2.9) L 12/08/18 04:16 [place] # (Auto) 0.5 x10^3/uL (0.3-0.8) 12/08/18 04:16 Eos # (Auto) 0.0 x10^3/uL (0.0-0.2) 12/08/18 04:16 Baso # (Auto) 0.0 X10^3/uL (0.0-0.1) 12/08/18 04:16 Absolute Nucleated RBC 0.0 /100WBC 12/08/18 04:16 Sample Site Lr 12/07/18 23:15 ABG pH 7.170 (7.35-7.45) L* 12/07/18 23:15 ABG pCO2 41.0 mmHg (35.0-45.0) 12/07/18 23:15 ABG pO2 102.0 mmHg (80.0-100.0) H 12/07/18 23:15 ABG HCO3 15.0 mmol/L (22-26) L* 12/07/18 23:15 ABG O2 Saturation 96.0 % (90-100) 12/07/18 23:15 ABG Base Excess -12.9 mmol/L (-2.0-2.0) L 12/07/18 23:15 Jeff Test Pos 12/07/18 23:15 A-a Gradient 132.0 mmHg 12/07/18 23:15 FiO2 40.0 12/07/18 23:15 Blood Gas Comments Shanna well ae 12/07/18 23:15 Sodium 142 mmol/L (136-145) 12/08/18 04:16 Corrected Sodium TNP 12/08/18 04:16 Potassium 3.8 mmol/L (3.5-5.1) 12/08/18 04:16 Chloride 110 mmol/L (98-107) H 12/08/18 04:16 Carbon Dioxide 19.0 mmol/L (21-32) L 12/08/18 04:16 BUN 17 mg/dL (7-18) 12/08/18 04:16 Creatinine 1.07 mg/dL (0.55-1.02) H 12/08/18 04:16 Est GFR (MDRD) Af Amer > 60 (>60) 12/08/18 04:16 Est GFR (MDRD) Non-Af 52 (>60) L 12/08/18 04:16 Glucose 93 mg/dL (65-99) 12/08/18 04:16 Calcium 8.3 mg/dL (8.5-10.1) L 12/08/18 04:16 Corrected Calcium 9.1 mg/dL (8.5-10.1) 12/08/18 04:16 Magnesium 1.9 mg/dL (1.7-2.9) 12/08/18 04:16 Total Bilirubin 0.20 mg/dL (0.2-1.0) 12/08/18 04:16 AST 57 Units/L (15-37) H 12/08/18 04:16 ALT 54 Units/L (12-78) 12/08/18 04:16 Alkaline Phosphatase 109 Units/L (46-116) 12/08/18 04:16 Total Protein 6.6 g/dL (6.4-8.2) 12/08/18 04:16 Albumin 3.0 g/dL (3.4-5.0) L 12/08/18 04:16 Globulin 3.6 g/dL (2.5-4.5) 12/08/18 04:16 Albumin/Globulin Ratio 0.8 Ratio (1.1-2.1) L 12/08/18 04:16 Specimen Type Catherized urine 12/07/18 23:00 Urine Color Yellow (YELLOW) 12/07/18 23:00 Urine Appearance Hazy (CLEAR) 12/07/18 23:00 Urine pH 8.0 (5.0 - 8.0) 12/07/18 23:00 Ur Specific [place] 1.010 (1.000-1.030) 12/07/18 23:00 Urine Protein 2+ (NEGATIVE) 12/07/18 23:00 Urine Glucose (UA) Negative (NEGATIVE) 12/07/18 23:00 Urine Ketones Negative (NEGATIVE) 12/07/18 23:00 Urine Occult Blood Negative (NEGATIVE) 12/07/18 23:00 Urine Nitrite Positive (NEGATIVE) 12/07/18 23:00 Urine Bilirubin Negative (NEGATIVE) 12/07/18 23:00 Urine Urobilinogen Normal (NORMAL) 12/07/18 23:00 Ur Leukocyte Esterase 2+ (NEGATIVE) 12/07/18 23:00 Urine RBC None seen /HPF (NONE SEEN) 12/07/18 23:00 Urine WBC Tntc /HPF (NONE SEEN) 12/07/18 23:00 Ur Squamous Epith Cells Negative /HPF (NEGATIVE) 12/07/18 23:00 Amorphous Sediment 3+ /HPF (NEGATIVE) 12/04/18 15:05 Urine Bacteria 4+ /HPF (NEGATIVE) 12/07/18 23:00 Hyaline Casts Moderate /LPF (NEGATIVE) 12/04/18 15:05 Ur Culture Indicated? Yes/culture set up 12/07/18 23:00 Stool Description 10g mucoid brown 12/04/18 15:05 Stl Occult Blood (IFOB) Negative (NEGATIVE) 12/04/18 15:05 Stool for White Cells Positive (NEGATIVE) A 12/04/18 15:05 Stl C. diff Tox B Gene Positive (NEGATIVE) A 12/04/18 15:05 Stl C. diff 027-NAP1-BI Negative (NEGATIVE) 12/04/18 15:05 C. difficile Toxin A&B Positive (NEGATIVE) A 12/04/18 15:05 Cryptosporid parvum Ag Negative (NEGATIVE) 12/04/18 15:05 Giardia lamblia Ag Negative (NEGATIVE) 12/04/18 15:05 - Plan (1) Dehydration, mild Status: Acute Plan: NORMAL SALINE AT 60ML/HR, 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 (2) Intractable nausea and vomiting Status: Acute (3) C. difficile colitis Status: Acute Plan: FLAGYL 500MG PO TID, 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
[2018-12-09 05:22] LABS: BASOPHILS # (AUTO) 0.1 X10^3/uL (0.0-0.1); BASOPHILS % (AUTO) 1.3 % (0.2-1.0); EOSINOPHILS # (AUTO) 0.1 x10^3/uL (0.0-0.2); EOSINOPHILS % (AUTO) 1.9 % (0.9-2.9); HEMATOCRIT 30.6 % (36.0-47.0); HEMOGLOBIN 10.5 g/dL (12.0-16.0); LYMPHOCYTES # (AUTO) 1.3 X10^3/uL (1.3-2.9); LYMPHOCYTES % (AUTO) 34.5 % (21.0-51.0); MEAN CORPUSCULAR HEMOGLOBIN 29.8 pg (27.0-34.0); MEAN CORPUSCULAR HGB CONC 34.2 g/dL (33.0-35.0); MEAN CORPUSCULAR VOLUME 87.4 fL (80.0-100.0); MEAN PLATELET VOLUME 9.6 fL (7.4-11.0); MONOCYTES # (AUTO) 0.5 x10^3/uL (0.3-0.8); MONOCYTES % (AUTO) 12.2 % (0.0-13.0); NEUTROPHILS # (AUTO) 1.9 x10^3/uL (2.2-4.8); NEUTROPHILS % (AUTO) 50.1 % (42.0-75.0); PLATELET COUNT 255 X10^3/uL (150.0-450.0); RED CELL DISTRIBUTION WIDTH 15.1 % (11.6-16.5); WHITE BLOOD COUNT 3.8 X10^3/uL (3.6-10.0)
[2018-12-09 05:29] LABS: ALANINE AMINOTRANSFERASE 36 Units/L (12-78); ALBUMIN 2.7 g/dL (3.4-5.0); ALKALINE PHOSPHATASE 83 Units/L (46-116); ASPARTATE AMINO TRANSFERASE 27 Units/L (15-37); BLOOD UREA NITROGEN 15 mg/dL (7-18); CALCIUM 8.1 mg/dL (8.5-10.1); CHLORIDE 111 mmol/L (98-107); COR CA(FOR HYPOALB) 9.1 mg/dL (8.5-10.1); CREATININE 0.99 mg/dL (0.55-1.02); SODIUM 144 mmol/L (136-145); TOTAL PROTEIN 5.9 g/dL (6.4-8.2); eGFR NON BLACK RACES 57 (>60)
--- NOTE | 2018-12-09 06:21 | RAD ---
HISTORY: Shortness of breath. Study: Single-view chest. Comparison: 12/07/2018. Findings: The trachea is midline. The cardiac silhouette is within normal limits in size. There has been interval improvement with near complete resolution of diffuse interstitial prominence throughout both lungs when compared with 2 days earlier. There is no new consolidation or significant pleural effusion. There are postsurgical changes following mastectomy and axillary lymph node dissection on the left. Cholecystectomy clips project over the right upper quadrant of the abdomen. The bony thorax is grossly unchanged. IMPRESSION: Interval improvement with near complete resolution of previously noted pulmonary edema pattern. Reported By:
[2018-12-09] MEDS: REQUIP PO SCH (06:22)
[2018-12-09] MEDS: FLAGYL TAB 500 MG PO SCH (06:22)
[2018-12-09] MEDS: APRESOLINE TAB 25 MG PO SCH (06:22)
[2018-12-09] MEDS: ARICEPT TAB 10 MG PO SCH (08:11)
[2018-12-09] MEDS: CORDARONE TAB 200 MG PO SCH (08:13)
[2018-12-09] MEDS: COZAAR PO SCH (08:15)
[2018-12-09] MEDS: DIFLUCAN 200 MG IV PREMIX* 200 MG/100 ML BAG IV SCH (08:16)
[2018-12-09] MEDS: EFFEXOR XR 75 MG CAP PO SCH (08:16)
[2018-12-09] MEDS: HEMOCYTE-PLUS PO SCH (08:17)
[2018-12-09] MEDS: NAMENDA TAB 10 MG PO SCH (08:17)
[2018-12-09] MEDS: NEURONTIN CAP 100 MG PO SCH (08:18)
[2018-12-09] MEDS: PEPCID TAB 20 MG PO SCH (08:18)
[2018-12-09] MEDS: PROTONIX TAB 40 MG PO SCH (08:19)
[2018-12-09] MEDS: PLAVIX PO SCH (08:19)
[2018-12-09] MEDS: TENORMIN PO SCH (08:20)
[2018-12-09] MEDS: SINGULAIR TAB 10 MG PO SCH (08:20)
[2018-12-09] MEDS: VSL#3 PO SCH (08:21)
[2018-12-09] MEDS: PULMICORT NEB TX 0.5 MG NEB SCH (09:12)
[2018-12-09] MEDS: DUONEB 0.5 MG/3 MG NEB PRN (09:12)
[2018-12-09 12:39] VITALS: BP 133/59
== END 2018-12-09 12:00 | disposition home or self-care (01) | DRG 372 ==
LOC: ER 04:58 → MED/SURG 04:58 → ICU 12-07 23:00
PROVIDERS: ADMIT Internal Medicine; ATTEND Internal Medicine
DX: B96.4 Proteus (mirabilis) (morganii) as the cause of diseases classified elsewhere; E78.2 Mixed hyperlipidemia; N39.0 Urinary tract infection, site not specified; K21.9 Gastro-esophageal reflux disease without esophagitis; A04.72 Enterocolitis due to Clostridium difficile, not specified as recurrent; J44.9 Chronic obstructive pulmonary disease, unspecified; I25.10 Atherosclerotic heart disease of native coronary artery without angina pectoris; R19.7 Diarrhea, unspecified; R26.89 Other abnormalities of gait and mobility; E86.0 Dehydration; B96.29 Other Escherichia coli [E. coli] as the cause of diseases classified elsewhere; I10 Essential (primary) hypertension; R11.2 Nausea with vomiting, unspecified
CPT/HCPCS: 36415; 36600; 71010; 71045; 74022; 80053; 81001; 82270; 82803; 83630; 83735; 85025; 87045; 87086; 87088; 87186; 87324; 87328; 87329; 87427; 87449; 87493; 87899; 94640; 94660; 94760; 96365; 96367; 96374; 97110; 97162; 97166; 97530; 97535; 99284; A4222; A4618; A7030; G0378; J1450; J1940; J2405; J7030; J7620; J7626

== ENCOUNTER 2018-12-30 10:16 | Inpatient (IN) ==
[2018-12-30] MEDS ORDERED: DUONEB 0.5 MG/3 MG ONE (10:42)
[2018-12-30] MEDS ORDERED: SOLU-Medrol 125 MG VIAL ONE (10:48)
[2018-12-30] MEDS ORDERED: SOLU MEDROL IV PRN (10:50)
[2018-12-30] MEDS ORDERED: DUONEB 0.5 MG/3 MG NEB ONE (10:50)
[2018-12-30] MEDS ORDERED: SOLU-Medrol 125 MG VIAL IVP ONE (10:59)
--- NOTE | 2018-12-30 11:10 | RAD ---
History: Severe shortness of breath. Comparison: 12/09/2018. CTA 08/09/2018 Findings: Increasing interstitial prominence is noted bilaterally. There is no focal airspace disease or consolidation. There is no pleural effusion or pneumothorax. There is left apical pleural calcification. Patient is status post left mastectomy and left axillary lymph node dissection and breast implant with calcification of the implant capsule. Surgical clips are visible in the right upper quadrant. Impression: 1. Abnormal increased interstitial prominence, new versus prior CT scan from 08/09/2018. This finding is nonspecific and may represent a viral infectious or inflammatory (question drug therapy or radiation) process versus lymphangitic spread of carcinoma given history of breast cancer. A follow-up CT scan of the chest to include high-resolution sections recommended for further evaluation. Reported By:
[2018-12-30] MEDS ORDERED: NORMODYNE INJ 20 MG VIAL IVP PRN (11:25)
[2018-12-30 11:26] LABS: CKMB % 2.3 % (<4); CREATINE KINASE 56 Units/L (26-192); CREATINE KINASE MB 1.3 ng/mL (0-4.0); TROPONIN I < 0.02 ng/mL (0-1.5)
[2018-12-30 11:31] LABS: ABG ALLEN TEST POS; ABG BASE EXCESS 2.6 mmol/L (-2.0-2.0); ABG HCO3 28.4 mmol/L (22-26)
[2018-12-30 11:33] LABS: BASOPHILS # (AUTO) 0.1 X10^3/uL (0.0-0.1); EOSINOPHILS # (AUTO) 0.3 x10^3/uL (0.0-0.2); EOSINOPHILS % (AUTO) 3.2 % (0.9-2.9); HEMATOCRIT 35.7 % (36.0-47.0); HEMOGLOBIN 11.7 g/dL (12.0-16.0); LYMPHOCYTES % (AUTO) 37.9 % (21.0-51.0); MEAN CORPUSCULAR HEMOGLOBIN 29.2 pg (27.0-34.0); MEAN CORPUSCULAR HGB CONC 32.9 g/dL (33.0-35.0); MEAN PLATELET VOLUME 9.3 fL (7.4-11.0); MONOCYTES % (AUTO) 9.8 % (0.0-13.0); NEUTROPHILS # (AUTO) 5.1 x10^3/uL (2.2-4.8); NEUTROPHILS % (AUTO) 48.1 % (42.0-75.0); PLATELET COUNT 373 X10^3/uL (150.0-450.0); RED BLOOD COUNT 4.01 X10^6/uL (3.5-5.4); RED CELL DISTRIBUTION WIDTH 15.7 % (11.6-16.5); WHITE BLOOD COUNT 10.6 X10^3/uL (3.6-10.0)
[2018-12-30 11:46] LABS: ALANINE AMINOTRANSFERASE 17 Units/L (12-78); ALBUMIN 3.5 g/dL (3.4-5.0); ALKALINE PHOSPHATASE 76 Units/L (46-116); ASPARTATE AMINO TRANSFERASE 20 Units/L (15-37); BLOOD UREA NITROGEN 7 mg/dL (7-18); CALCIUM 9.4 mg/dL (8.5-10.1); CARBON DIOXIDE 23.5 mmol/L (21-32); CHLORIDE 106 mmol/L (98-107); COR NA(FOR HYPERGLY) 146 mmol/L (136-145); CREATININE 1.05 mg/dL (0.55-1.02); SODIUM 142 mmol/L (136-145); TOTAL PROTEIN 7.4 g/dL (6.4-8.2); eGFR NON BLACK RACES 53 (>60)
[2018-12-30] MEDS ORDERED: NS 1000 ML 1,000 ML ONE (11:51)
[2018-12-30] MEDS ORDERED: NS 1000 ML 1,000 ML IV ONE (11:53)
[2018-12-30] MEDS ORDERED: NS 100 ML IV + SPIKE MINIBAG* 100 ML ONE (12:11)
[2018-12-30 12:16] LABS: BILIRUBIN,URINE NEGATIVE (NEGATIVE); BLOOD/HEMOGLOBIN,URINE 1+ (NEGATIVE); GLUCOSE, URINE NEGATIVE (NEGATIVE); KETONES,URINE NEGATIVE (NEGATIVE); LEUKOCYTE ESTERASE ,URINE 2+ (NEGATIVE); NITRITES,URINE POSITIVE (NEGATIVE); PH,URINE 6.5 (5.0 - 8.0); PROTEIN,URINE 3+ (NEGATIVE); UROBILINOGEN,URINE NORMAL (NORMAL)
[2018-12-30 12:17] LABS: APPEARANCE,URINE CLOUDY (CLEAR); COLOR,URINE YELLOW (YELLOW)
--- NOTE | 2018-12-30 12:26 | DR.GENAD ---
HPI Time Seen Time Seen by Provider: 12/30/18 10:50 PCP Primary Care Physician: JEANINE Complaint/Symptoms Chief Complaint:: EMS DISPATECHED TO RESIDENT FOR SOB, UPON ARRIVAL EMS STATED THAT PT WAS SHORT OF BREATH, OXYGEN SAT 87 % ON NC AT 2LPM. PLACED NON- REBREATHER ON PATIENT AND PT OXYGEN SAT 100%. PT IS DIAPHORTEIC, SWEATING AND STRUGGLING TO BREATH. RESPIRATION IS LABORED ON NON-REBREATHER. PT WITH WET WITH BREATHER SOUNDS NOTED BILATERAL LUNG SOUNDS. Self Treatment fo Chief Complaint: EMS WAS TOLD THAT SYMTOMS STARTED ONE HOUR PRIOR TO CALL OUT FOR EMS Mode of Arrival Mode of Arrival: EMS Timing Onset of Chief Complaint: 12/30/18 PMH PMH Past Medical History: Yes Past Medical History: Anemia, Arthritis, Asthma, COPD, Coronary Artery Disease, Dyslipidemia, GERD, Hypertension and [place] Past Surgical History: Yes Surgical History: Angioplasty/Stents, Hysterectomy and Mastectomy Family History History of Family Medical Conditions: Yes Family Medical History: Coronary Artery Disease and Hypertension Social History Does patient currently use any type of tobacco product: Yes Have you used tobacco products in the last 12 months: Yes Type of Tobacco Use: Cigarettes Does any household member use tobacco: Yes Alcohol Use: None Do you use any recreational Drugs:: No Lives With: Family Lives Where: Home infectious screening In the last 2 months have you had wt loss of >10#?: NO Have you had fever, night sweats or hemotysis?: No Have you traveled outside the country in the last 6 months?: No Isolation: Standard ROS Review of Systems Constitutional: No Symptoms Reported Eyes: No Symptoms Reported ENTM: No Symptoms Reported Respiratoy: See HPI Cardiovascular: No Symptoms Reported Gastrointestinal/Abdominal: No Symptoms Reported Genitourinary: No Symptoms Reported Neurological: No Symptoms Reported Musculoskeletal: No Symptoms Reported Hematologic/Lymphatic: No Symptoms Reported Endocrine: No Symptoms Reported All Other Systems: Reviewed and Negative PE Vital Signs Vitals: Temperature 97.2 F Pulse Rate [Apical] 79 Pulse Rate [Right Brachial] 75 Pulse Rate 77 Respiratory Rate 16 Blood Pressure [Left Calf] 126/56 Blood Pressure [Left Arm] 156/80 Blood Pressure [Right Calf] 168/77 Blood Pressure [Right Arm] 73/40 Blood Pressure 132/73 O2 Sat by Pulse Oximetry 100 General Limitations: No Limitations General Appearance: Alert and In No Apparent Distress Head Head Exam: Normal Inspection, Atraumatic and Normocephalic Eyes Eye exam: Normal Appearance, PERRL and EOMI ENT ENT Exam: Normal Exam and Normal Oropharynx External Ear Exam: Normal External Inspection TM/Canal Exam: Bilateral: Normal Nose Exam: Normal Nose Exam Mouth Exam: Normal Inspection Throat Exam: Normal Inspection Neck Neck Exam: Normal Inspection and Full ROM Chest Chest Inspection: Normal Inspection and Symmetric Chest Wall Rise Respiratory Respiratory Exam: Normal Lung Sounds Bilat Respiratory Exam: Lower: Wheezing Cardiovascular Cardiovascular Exam: Regular Rate and Normal Rhythm Abdominal Exam Abdominal Exam: Normal Inspection, Normal Bowel Sounds and Soft Extremities Extremities Exam: Normal Inspection and Full ROM Back Back Exam: Normal Inspection Neurologic Neurological Exam: Alert, Oriented X3 and CN II-XII Intact Psychiatric Psychiatric Exam: Normal Affect and Normal Mood Skin Skin Exam: Warm, Dry and Intact MDM Differential Diagnosis Differential Diagnosis: emphysema, blood clot, infection ROR Labs Reviewed Result Diagrams: 12/30/18 10:50 12/30/18 10:50 Laboratory: WBC 10.6 X10^3/uL (3.6-10.0) H 12/30/18 10:50 RBC 4.01 X10^6/uL (3.5-5.4) 12/30/18 10:50 Hgb 11.7 g/dL (12.0-16.0) L 12/30/18 10:50 Hct 35.7 % (36.0-47.0) L 12/30/18 10:50 MCV 89.0 fL (80.0-100.0) 12/30/18 10:50 MCH 29.2 pg (27.0-34.0) 12/30/18 10:50 MCHC 32.9 g/dL (33.0-35.0) L 12/30/18 10:50 RDW 15.7 % (11.6-16.5) 12/30/18 10:50 Plt Count 373 X10^3/uL (150.0-450.0) 12/30/18 10:50 MPV 9.3 fL (7.4-11.0) 12/30/18 10:50 Neut % (Auto) 48.1 % (42.0-75.0) 12/30/18 10:50 Lymph % (Auto) 37.9 % (21.0-51.0) 12/30/18 10:50 [place] % (Auto) 9.8 % (0.0-13.0) 12/30/18 10:50 Eos % (Auto) 3.2 % (0.9-2.9) H 12/30/18 10:50 Baso % (Auto) 1.0 % (0.2-1.0) 12/30/18 10:50 Neut # (Auto) 5.1 x10^3/uL (2.2-4.8) H 12/30/18 10:50 Lymph # (Auto) 4.0 X10^3/uL (1.3-2.9) H 12/30/18 10:50 [place] # (Auto) 1.0 x10^3/uL (0.3-0.8) H 12/30/18 10:50 Eos # (Auto) 0.3 x10^3/uL (0.0-0.2) H 12/30/18 10:50 Baso # (Auto) 0.1 X10^3/uL (0.0-0.1) 12/30/18 10:50 Absolute Nucleated RBC 0.1 /100WBC 12/30/18 10:50 D-Dimer 850 ng/mL (0-400) H* 12/30/18 10:50 Sample Site Lra 12/30/18 11:20 ABG pH 7.380 (7.35-7.45) 12/30/18 11:20 ABG pCO2 48.0 mmHg (35.0-45.0) H 12/30/18 11:20 ABG pO2 72.0 mmHg (80.0-100.0) L 12/30/18 11:20 ABG HCO3 28.4 mmol/L (22-26) H 12/30/18 11:20 ABG O2 Saturation 94.0 % (90-100) 12/30/18 11:20 ABG Base Excess 2.6 mmol/L (-2.0-2.0) H 12/30/18 11:20 Jeff Test Pos 12/30/18 11:20 A-a Gradient 82.0 mmHg 12/30/18 11:20 FiO2 30.0 12/30/18 11:20 Blood Gas Comments Pt toll well eb 12/30/18 11:20 Sodium 142 mmol/L (136-145) 12/30/18 10:50 Corrected Sodium 146 mmol/L (136-145) H 12/30/18 10:50 Potassium 3.9 mmol/L (3.5-5.1) 12/30/18 10:50 Chloride 106 mmol/L (98-107) 12/30/18 10:50 Carbon Dioxide 23.5 mmol/L (21-32) 12/30/18 10:50 BUN 7 mg/dL (7-18) 12/30/18 10:50 Creatinine 1.05 mg/dL (0.55-1.02) H 12/30/18 10:50 Est GFR (MDRD) Af Amer > 60 (>60) 12/30/18 10:50 Est GFR (MDRD) Non-Af 53 (>60) L 12/30/18 10:50 Glucose 254 mg/dL (65-99) H 12/30/18 10:50 Calcium 9.4 mg/dL (8.5-10.1) 12/30/18 10:50 Corrected Calcium TNP 12/30/18 10:50 Total Bilirubin 0.20 mg/dL (0.2-1.0) 12/30/18 10:50 AST 20 Units/L (15-37) 12/30/18 10:50 ALT 17 Units/L (12-78) 12/30/18 10:50 Alkaline Phosphatase 76 Units/L (46-116) 12/30/18 10:50 Creatine Kinase 53 Units/L (26-192) 12/30/18 17:22 CK-MB (CK-2) 2.1 ng/mL (0-4.0) 12/30/18 17:22 CK/CKMB % Calc 4.0 % (<4) 12/30/18 17:22 Troponin I 0.04 ng/mL (0-1.5) 12/30/18 17:22 Total Protein 7.4 g/dL (6.4-8.2) 12/30/18 10:50 Albumin 3.5 g/dL (3.4-5.0) 12/30/18 10:50 Globulin 3.9 g/dL (2.5-4.5) 12/30/18 10:50 Albumin/Globulin Ratio 0.9 Ratio (1.1-2.1) L 06/23/19 10:50 Specimen Type Catherized urine 12/30/18 11:50 Urine Color Yellow (YELLOW) 12/30/18 11:50 Urine Appearance Cloudy (CLEAR) 12/30/18 11:50 Urine pH 6.5 (5.0 - 8.0) 12/30/18 11:50 Ur Specific [place] 1.015 (1.000-1.030) 12/30/18 11:50 Urine Protein 3+ (NEGATIVE) 12/30/18 11:50 Urine Glucose (UA) Negative (NEGATIVE) 12/30/18 11:50 Urine Ketones Negative (NEGATIVE) 12/30/18 11:50 Urine Occult Blood 1+ (NEGATIVE) 12/30/18 11:50 Urine Nitrite Positive (NEGATIVE) 12/30/18 11:50 Urine Bilirubin Negative (NEGATIVE) 12/30/18 11:50 Urine Urobilinogen Normal (NORMAL) 12/30/18 11:50 Ur Leukocyte Esterase 2+ (NEGATIVE) 12/30/18 11:50 Urine RBC 0-2 /HPF (NONE SEEN) 12/30/18 11:50 Urine WBC Tntc /HPF (NONE SEEN) 12/30/18 11:50 Ur Squamous Epith Cells Rare /HPF (NEGATIVE) 12/30/18 11:50 Urine Bacteria 4+ /HPF (NEGATIVE) 12/30/18 11:50 Hyaline Casts Few /LPF (NEGATIVE) 12/30/18 11:50 Ur Culture Indicated? Yes/culture set up 12/30/18 11:50 Other Results Comments: Chest: Abnormal increased interstitial prominence, new versus prior CT scan from 08/09/18. This findings is nonspecific and may represent a viral infectious or inflammatory (question drug therapy or radiation) process versus lymphangitic spread of carcinoma given history of breast cancer. A follow up CT scan of the chest ot include high resolution sections recommended for further evaluation. XRAY XRAY Interpreted by: Radiologist Opioid Opioid Risk Tool Total: 0 Total Score Risk Category: Low Risk Copyright: [employer] predicting aberrant behaviors Diagnosis Discharge Problem: COPD exacerbation, Acute UTI ADDITIONAL NOTES Additional Notes Additional Notes: Admitted to Dr. Puri service per Dr. Taylor
[2018-12-30 12:29] LABS: BACTERIA,URINE 4+ /HPF (NEGATIVE); HYALINE CASTS, URINE FEW /LPF (NEGATIVE); RBC,URINE 0-2 /HPF (NONE SEEN); SQUAMOUS EPITHELIAL CELL,UR RARE /HPF (NEGATIVE)
--- NOTE | 2018-12-30 12:56 | CT ---
HISTORY: Shortness of breath, elevated D-dimer Study: CTA chest with contrast for pulmonary embolus Comparison: 08/09/2018 Technique: Axial post-contrast images with coronal, sagittal, and three-dimensional maximum intensity projection images obtained and evaluated. Dose reduction procedures were used with mA/kv adjusted for body size. Findings: There is no evidence for acute pulmonary thromboembolic disease. 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 Vascular surgery consult is again recommended if not already performed. Examination of the mediastinum demonstrated no evidence for mediastinal masses, enlarged mediastinal or enlarged hilar adenopathy, significant aortic abnormality. Bilateral pleural effusions, small are present. No chest wall or axillary abnormality is identified with the exception of the intracapsular implant rupture on the left previously described. Those portions of the upper abdominal organs visualized were within normal limits. No lytic or blastic skeletal lesions of significance are identified. Examination of the lung castro demonstrates no evidence for nodules, masses, alveolar infiltrates, areas of consolidation, significant peribronchial thickening or bronchiectasis. Mild interstitial lung changes are present. 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 Mild interstitial lung changes are present. Intracapsular implant rupture on the left as previously described Reported By:
[2018-12-30] MEDS: MERREM VIAL IVP SCH ×2 (14:45→21:12)
[2018-12-30] MEDS: FORTAZ or TAZICEF VIAL INJ IVP SCH ×2 (14:45→21:12)
[2018-12-30] MEDS: NS 1000 ML 1,000 ML IV SCH (14:53)
[2018-12-30 16:55] VITALS: BMI 24.4
[2018-12-30] MEDS: DUONEB 0.5 MG/3 MG NEB SCH ×2 (17:05→20:44)
[2018-12-30 18:20] LABS: CREATINE KINASE MB 2.1 ng/mL (0-4.0); TROPONIN I 0.04 ng/mL (0-1.5)
[2018-12-30] MEDS: REQUIP PO SCH (21:12)
[2018-12-30] MEDS: PEPCID TAB 20 MG PO SCH (21:12)
[2018-12-30] MEDS: NEURONTIN CAP 300 MG PO SCH (21:12)
[2018-12-30] MEDS: PRAVACHOL PO SCH (21:12)
[2018-12-30] MEDS: NAMENDA TAB 10 MG PO SCH (21:12)
[2018-12-30] MEDS: LOPRESSOR TAB 25 MG PO SCH (21:12)
[2018-12-30] MEDS: SINGULAIR TAB 10 MG PO SCH (21:12)
[2018-12-30] MEDS: ARICEPT TAB 10 MG PO SCH (21:13)
[2018-12-30 23:15] LABS: CKMB % 3.4 % (<4); CREATINE KINASE MB 1.8 ng/mL (0-4.0); TROPONIN I 0.02 ng/mL (0-1.5)
[2018-12-31] MEDS: ULTRAM PO PRN ×2 (01:03→21:07)
[2018-12-31] MEDS: DUONEB 0.5 MG/3 MG NEB SCH ×6 (01:30→21:13)
[2018-12-31] MEDS: REQUIP PO SCH ×4 (05:05→21:07)
[2018-12-31] MEDS: FORTAZ or TAZICEF VIAL INJ IVP SCH ×3 (05:05→22:02)
[2018-12-31] MEDS ORDERED: BUTT CREAM (COMPOUND) TOP PRN (05:20)
[2018-12-31 05:49] LABS: BASOPHILS # (AUTO) 0.1 X10^3/uL (0.0-0.1); BASOPHILS % (AUTO) 0.5 % (0.2-1.0); HEMATOCRIT 28.2 % (36.0-47.0); LYMPHOCYTES # (AUTO) 1.2 X10^3/uL (1.3-2.9); LYMPHOCYTES % (AUTO) 10.5 % (21.0-51.0); MEAN CORPUSCULAR HEMOGLOBIN 29.2 pg (27.0-34.0); MEAN CORPUSCULAR VOLUME 88.5 fL (80.0-100.0); MEAN PLATELET VOLUME 9.6 fL (7.4-11.0); MONOCYTES % (AUTO) 9.2 % (0.0-13.0); NEUTROPHILS # (AUTO) 8.9 x10^3/uL (2.2-4.8); NEUTROPHILS % (AUTO) 79.8 % (42.0-75.0); PLATELET COUNT 222 X10^3/uL (150.0-450.0); RED BLOOD COUNT 3.18 X10^6/uL (3.5-5.4); RED CELL DISTRIBUTION WIDTH 16.1 % (11.6-16.5); WHITE BLOOD COUNT 11.2 X10^3/uL (3.6-10.0)
--- NOTE | 2018-12-31 06:01 | RAD ---
AP chest Indication: COPD Comparison: 12/30/2018 Findings: Heart size remains at the upper limits of normal. Trachea is midline. Interstitial prominence is similar prior examination. No focal airspace opacity, pleural effusion or pneumothorax. Breast stable postsurgical change within the left breast with previous left axillary ameena dissection. Scarring within the left lung apex is also similar. Impression: Stable interstitial prominence represents either acute or chronic interstitial lung disease. No focal airspace opacity or evidence of CHF. Reported By:
[2018-12-31 06:05] LABS: ALANINE AMINOTRANSFERASE 9 Units/L (12-78); ALBUMIN 2.7 g/dL (3.4-5.0); ALKALINE PHOSPHATASE 61 Units/L (46-116); ASPARTATE AMINO TRANSFERASE 11 Units/L (15-37); BLOOD UREA NITROGEN 15 mg/dL (7-18); CALCIUM 8.8 mg/dL (8.5-10.1); CARBON DIOXIDE 27.7 mmol/L (21-32); CHLORIDE 108 mmol/L (98-107); COR CA(FOR HYPOALB) 9.8 mg/dL (8.5-10.1); COR NA(FOR HYPERGLY) 145 mmol/L (136-145); CREATININE 1.03 mg/dL (0.55-1.02); SODIUM 143 mmol/L (136-145); eGFR NON BLACK RACES 55 (>60)
[2018-12-31 06:16] LABS: HEMOGLOBIN 9.3 g/dL (12.0-16.0)
[2018-12-31 06:17] LABS: PLATELET MORPHOLOGY COMMENT NORMAL (NORMAL)
[2018-12-31] MEDS: HEMOCYTE-PLUS PO SCH (07:59)
[2018-12-31] MEDS: SOLU-Medrol 40 MG VIAL IVP SCH ×2 (07:59→17:30)
[2018-12-31] MEDS: ASPIRIN EC 81 MG PO SCH (07:59)
[2018-12-31] MEDS: PLAVIX PO SCH (07:59)
[2018-12-31] MEDS: PROTONIX TAB 40 MG PO SCH (08:00)
[2018-12-31] MEDS: MERREM VIAL IVP SCH (08:00)
[2018-12-31] MEDS: EFFEXOR XR 75 MG CAP PO SCH (08:01)
[2018-12-31] MEDS: NAMENDA TAB 10 MG PO SCH ×2 (08:01→21:08)
[2018-12-31] MEDS: LOPRESSOR TAB 25 MG PO SCH ×2 (08:04→21:08)
[2018-12-31] MEDS ORDERED: LASIX PO SCH (09:00)
[2018-12-31] MEDS ORDERED: PHARMACY CONSULT - DOSE _____ XX SCH (09:00)
[2018-12-31] MEDS ORDERED: VOLTAREN 1 % GEL MULTI DOSE TUBE TOP PRN (10:27)
[2018-12-31] MEDS ORDERED: TYLENOL 500 MG TAB EXTRA STRENGTH PO PRN (10:27)
[2018-12-31] MEDS ORDERED: COLACE CAP 100 MG PO PRN (10:27)
[2018-12-31] MEDS ORDERED: GLUCOSAMINE SULFATE 500 MG PO SCH (10:30)
[2018-12-31] MEDS: COZAAR PO SCH (11:26)
[2018-12-31] MEDS: VSL#3 PO SCH (11:26)
[2018-12-31] MEDS: PULMICORT NEB TX 0.5 MG NEB SCH ×2 (12:13→21:13)
[2018-12-31] MEDS: NEURONTIN CAP 100 MG PO SCH (13:06)
--- NOTE | 2018-12-31 14:14 | DR.H&P ---
H&P - History & Physical for Day of: H&P Date: 12/30/18 - Chief Complaint Chief Complaint: SHORT OF BREATH - History of Present Illness History of Present Illness: IS A 83 YEAR OLD PATIENT OF OURS. SHE PRESENTED TO THE ER WITH COMPLAINTS OF SHORTNESS OF BREATH. EMS REPORTS THAT ON THEIR ARRIVAL TO HER HOME, SHE WAS NOTED TO BE DIAPHORETIC AND STRUGGLING TO BREATH. THEY REPORT THAT HER OXYGEN SATURATIONS WERE 87% ON NASAL CANNULA AT 2L/MIN. THEY PLACED PATIENT ON A NON-REBREATHER. HER SATURATIONS INCREASED TO 100%. ON ARRIVAL TO THE ER, SHE CONTINUES WITH LABORED RESPIRATIONS ON THE NON- REBREATHER. BILATERAL LUNGS ARE NOTED WITH SCATTERED WHEEZING AND RHONCHI. ON ARRIVAL, VITALS WERE 97.4-106-22-98%-132/73. LABS WERE OBTAINED. ABNORMAL LAB VALUES INCLUDE THE FOLLOWING: WBC 10.6, HGB 11.37, HCT 35.7, D-DIMER 850, CREATININE 1.05, GLUCOSE 254. A URINALYSIS WAS OBTAINED AND REVEALED: WBC TNTC, RBC 0-2, LEUKOCYTES 2+, BACTERIA 4+, NITRITE POSITIVE. SHE HAS RECENTLY BEEN TREATED FOR A UTI. BLOOD AND URINE CULTURES WERE OBTAINED. A CHEST XRAY WAS OBTAINED AND REVEALED: Abnormal increased interstitial prominence, new versus prior CT scan from 08/09/2018. This finding is nonspecific and may represent a viral infectious or inflammatory (question drug therapy or radiation) process versus lymphangitic spread of carcinoma given history of breast cancer. A follow-up CT scan of the chest to include high-resolution sections recommended for further evaluation. EKG REVEALED SINUS TACHYCARDIA WITH HR 104. A CHEST CTA WAS OBTAINED AND REVEALED: No evidence for acute pulmonary thromboembolic disease. 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 Lungs free of acu te infiltrates. Mild interstitial lung changes are present. Intracapsular implant rupture on the left as previously described. SHE WAS GIVEN A NORMAL SALINE BOLUS IN THE ER WELL SOLU-MEDROL 125MG IV X 1 AND A DUONEB. SHE WAS ADMITTED FOR FURTHER EVALUATION AND TREATMENT OF COPD EXACERBATION AND A URINARY TRACT INFECTION. SHE WAS STARTED ON NORMAL SALINE AT KVO, SOLU-MEDROL 80MG IV Q8H, FORTAZ 1G IV Q8H, AND HER HOME MEDICATIONS WERE RESUMED. WE PLAN TO FOLLOW UP WITH AM LABS AND 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. - Past Medical History Past Medical History: [place], Coronary Artery Disease, Hypertension, Dyslipidemia, Anemia, COPD, Asthma, GERD, Arthritis Additional Medical History: Breast and uterine cancer - Past Surgical History Surgical History: Angioplasty/Stents, Hysterectomy, Mastectomy - Family History Family Medical History: Coronary Artery Disease, Hypertension - Social History Does patient currently use any type of tobacco product: Yes Have you used tobacco products in the last 12 months: Yes Type of Tobacco Use: Cigarettes How many years tobacco product used: 20 Does any household member use tobacco: Yes Alcohol Use: None Drug Use: None - Medications Home Medications: levofloxacin [From Levaquin] Allergy (Verified 12/30/18 10:19) CONTINUE taking the following medications Lactobac. rhamnosus GG-inulin [Culturelle Probiotics] 1 tab PO DAILY 12/30/18 [History] acetaminophen [Tylenol Extra Strength] 500 mg PO Q6H PRN 12/30/18 [History] aspirin 81 mg PO DAILY 12/30/18 [History] budesonide 1 neb INHALATION BID 12/30/18 [History] clopidogrel [Plavix] 75 mg PO DAILY 12/30/18 [History] diclofenac sodium 1 applic TOPICAL PRN PRN 12/30/18 [History] docusate sodium [Colace] 200 mg PO HS PRN 12/30/18 [History] donepezil [Aricept] 10 mg PO DAILY 12/30/18 [History] famotidine [Pepcid] 40 mg PO BID 12/30/18 [History] furosemide [Lasix] 20 mg PO DAILY 12/30/18 [History] gabapentin 100 mg PO 1400 12/30/18 [History] gabapentin 300 mg PO HS 12/30/18 [History] glucosamine sulfate 500 mg PO DAILY 12/30/18 [History] hydralazine 100 mg PO TID 12/30/18 [History] ipratropium bromide 1 neb INHALATION TID PRN 12/30/18 [History] iron-folic acid-mv, min cmb#15 [Hemocyte-Plus] 1 tab PO DAILY 12/30/18 [History] losartan 50 mg PO DAILY 12/30/18 [History] memantine [Namenda] 10 mg PO BID 12/30/18 [History] methocarbamol [Robaxin-750] 750 mg PO TID PRN 12/30/18 [History] metoprolol tartrate [Lopressor] 25 mg PO BID 12/30/18 [History] metronidazole 500 mg PO TID 12/30/18 [History] montelukast [Singulair] 10 mg PO DAILY 12/30/18 [History] ondansetron HCl [Zofran] 8 mg PO BID PRN 12/30/18 [History] pantoprazole [Protonix] 40 mg PO DAILY 12/30/18 [History] pravastatin [Pravachol] 40 mg PO HS 12/30/18 [History] ropinirole [Requip] 1 mg PO TID 12/30/18 [History] tramadol [Ultram] 50 mg PO BID PRN 12/30/18 [History] venlafaxine [Effexor XR] 75 mg PO DAILY 12/30/18 [History] - Review of Systems Constitutional: Weakness Eyes: No Symptoms Reported ENT: No Symptoms Reported Respiratory: See HPI, Shortness of Breath, SOB with Excertion, Wheezing Cardiovascular: No Symptoms Reported Gastrointestinal: No Symptoms Reported Genitourinary: No Symptoms Reported Musculoskeletal: No Symptoms Reported Skin: No Symptoms Reported Neurological: Weakness - Physical Exam Vital Signs: Temperature 97.8 F Pulse Rate [Apical] 86 Pulse Rate [Right Brachial] 75 Pulse Rate 81 Respiratory Rate 22 Blood Pressure [Left Calf] 126/56 Blood Pressure [Left Arm] 187/76 Blood Pressure [Right Calf] 168/77 Blood Pressure [Right Arm] 73/40 Blood Pressure 132/73 O2 Sat by Pulse Oximetry 98 Oriented: Normal Eyes: Normal Ear: Normal Nose: Normal Throat: Normal Respiratory: Rhonchi Throughout, Wheezes Throughout Cardiovascular: Tachycardia. negative: S3, S4, Murmur : Normal Auscultation: Bowel Sounds: Normal Palpation: Normal Tenderness: Normal Skin: Normal Musculoskeletal: Normal Psychiatric: Normal Mood Description: Calm Affect: Normal Speech Pattern: Clear - Assessment/Plan (1) COPD exacerbation Status: Acute Plan: IV ANTIBIOTICS, STEROIDS, RESPIRATORY TX, 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 (2) Acute UTI Status: Acute Plan: IV ANTIBIOTICS, IV FLUIDS, 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 - Allergies Allergies/Adverse Reactions: Allergies Allergy/AdvReac Type Severity Reaction Status Date / Time levofloxacin [From Levaquin] Allergy Verified 12/30/18 10:19
[2018-12-31] MEDS: NS 1000 ML 1,000 ML IV SCH (18:34)
--- NOTE | 2018-12-31 20:44 | PCM.PROG ---
Progress Note - Progress Note for Day of Date of Exam: 12/31/18 - Subjective Subjective: WAS ADMITTED YESTERDAY FOR COPD EXACERBATION AND A URINARY TRACT INFECTION. TODAY, SHE IS ALERT AND ORIENTED, LYING IN BED ON MORNING ROUNDS. SHE CONTINUE WITH SHORTNESS OF BREATH, COUGH, AND SUPRAPUBIC PAIN. ON EXAMINATION, HEART IS REGULAR IN RATE AND RHYTHM. BILATERAL LUNGS ARE NOTED WITH SCATTERED WHEEZING THROUGHOUT. ABDOMEN IS ROUND, SOFT, AND NOTED WITH MILD, SUPRAPUBIC TENDERNESS. HER VITALS THIS MORNING ARE: WBC 11.2, RBC 3.18, HGB 9.3, HCT 28.2, CHLORIDE 108, CREATININE 1.03, GLUCOSE 173, TOTAL BILI 0.10, AST 11, ALT 9, TOTAL PROTEIN 6.0, ALBUMIN 2.7. BLOOD AND URINE CULTURES ARE PENDING. A CHEST XRAY WAS OBTAINED AND REVEALED: Stable interstitial prominence represents either acute or chronic interstitial lung disease. No focal airspace opacity or evidence of CHF. SHE IS CURRENTLY RECEIVING IV ANTIBIOTICS, RESPIRATORY TX, SUPPLEMENTAL OXYGEN, AND LASIX. TODAY, WE WILL INCREASED LASIX TO 20MG IV BID. WE WILL RESUME HER BLOOD PRESSURE MEDICATIONS. OTHERWISE, WE PLAN TO FOLLOW UP WITH AM LABS AND 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. - Past Medical Family Social History Past Med/Fam/Surg Hx: No changes since H&P Allergies: Allergies levofloxacin [From Levaquin] Allergy (Verified 12/30/18 10:19) - Review of Systems ROS: No change since H&P - Vital Signs and I&O's Vital Signs: Temperature 97.6 F Pulse Rate [Apical] 86 Pulse Rate [Right Brachial] 88 Pulse Rate 83 Respiratory Rate 18 Blood Pressure [Left Calf] 126/56 Blood Pressure [Left Arm] 147/63 Blood Pressure [Right Calf] 168/77 Blood Pressure [Right Arm] 73/40 Blood Pressure 132/73 O2 Sat by Pulse Oximetry 98 Intake and Output: Intake & Output 12/29/18 12/30/18 12/31/18 01/01/19 11:59 11:59 11:59 11:59 Intake Total 1060 / 1060 933 / 933 Output Total 1000 / 1000 300 / 300 Balance 60 / 60 633 / 633 - Physical Exam Oriented: Normal Eyes: Normal Ear: Normal Nose: Normal Throat: Normal Respiratory: Generalized, Wheezes Cardiovascular: Tachycardia. negative: S3, S4, Murmur : Normal Auscultation: Bowel Sounds: Normal Palpation: Normal Tenderness: Normal Skin: Normal Musculoskeletal: Normal Psychiatric: Normal Mood Description: Calm Affect: Normal Speech Pattern: Clear - Laboratory and Diagnostics Result Diagrams: 12/31/18 05:36 12/31/18 05:36 Labs: 12/30/18 11:50 Urine,Catheterized Urine Culture - Preliminary Laboratory WBC 11.2 X10^3/uL (3.6-10.0) H 12/31/18 05:36 RBC 3.18 X10^6/uL (3.5-5.4) L 12/31/18 05:36 Hgb 9.3 g/dL (12.0-16.0) L D 12/31/18 05:36 Hct 28.2 % (36.0-47.0) L 12/31/18 05:36 MCV 88.5 fL (80.0-100.0) 12/31/18 05:36 MCH 29.2 pg (27.0-34.0) 12/31/18 05:36 MCHC 33.0 g/dL (33.0-35.0) 12/31/18 05:36 RDW 16.1 % (11.6-16.5) 12/31/18 05:36 Plt Count 222 X10^3/uL (150.0-450.0) 12/31/18 05:36 Plt Count Comment Adequate (ADEQUATE) 12/31/18 05:36 MPV 9.6 fL (7.4-11.0) 12/31/18 05:36 Neut % (Auto) 79.8 % (42.0-75.0) H 12/31/18 05:36 Lymph % (Auto) 10.5 % (21.0-51.0) L 12/31/18 05:36 Ness % (Auto) 9.2 % (0.0-13.0) 12/31/18 05:36 Eos % (Auto) 0.0 % (0.9-2.9) L 12/31/18 05:36 Baso % (Auto) 0.5 % (0.2-1.0) 12/31/18 05:36 Neut # (Auto) 8.9 x10^3/uL (2.2-4.8) H 12/31/18 05:36 Lymph # (Auto) 1.2 X10^3/uL (1.3-2.9) L 12/31/18 05:36 Ness # (Auto) 1.0 x10^3/uL (0.3-0.8) H 12/31/18 05:36 Eos # (Auto) 0.0 x10^3/uL (0.0-0.2) 12/31/18 05:36 Baso # (Auto) 0.1 X10^3/uL (0.0-0.1) 12/31/18 05:36 Absolute Nucleated RBC 0.0 /100WBC 12/31/18 05:36 Plt Morphology Comment Normal (NORMAL) 12/31/18 05:36 RBC Morphology Normal (NORMAL) 12/31/18 05:36 D-Dimer 850 ng/mL (0-400) H* 12/30/18 10:50 Sample Site Lra 12/30/18 11:20 ABG pH 7.380 (7.35-7.45) 12/30/18 11:20 ABG pCO2 48.0 mmHg (35.0-45.0) H 12/30/18 11:20 ABG pO2 72.0 mmHg (80.0-100.0) L 12/30/18 11:20 ABG HCO3 28.4 mmol/L (22-26) H 12/30/18 11:20 ABG O2 Saturation 94.0 % (90-100) 12/30/18 11:20 ABG Base Excess 2.6 mmol/L (-2.0-2.0) H 12/30/18 11:20 Jeff Test Pos 12/30/18 11:20 A-a Gradient 82.0 mmHg 12/30/18 11:20 FiO2 30.0 12/30/18 11:20 Blood Gas Comments Pt toll well eb 12/30/18 11:20 Sodium 143 mmol/L (136-145) 12/31/18 05:36 Corrected Sodium 145 mmol/L (136-145) 12/31/18 05:36 Potassium 3.8 mmol/L (3.5-5.1) 12/31/18 05:36 Chloride 108 mmol/L (98-107) H 12/31/18 05:36 Carbon Dioxide 27.7 mmol/L (21-32) 12/31/18 05:36 BUN 15 mg/dL (7-18) 12/31/18 05:36 Creatinine 1.03 mg/dL (0.55-1.02) H 12/31/18 05:36 Est GFR (MDRD) Af Amer > 60 (>60) 12/31/18 05:36 Est GFR (MDRD) Non-Af 55 (>60) L 12/31/18 05:36 Glucose 173 mg/dL (65-99) H 12/31/18 05:36 Calcium 8.8 mg/dL (8.5-10.1) 12/31/18 05:36 Corrected Calcium 9.8 mg/dL (8.5-10.1) 12/31/18 05:36 Total Bilirubin 0.10 mg/dL (0.2-1.0) L 12/31/18 05:36 AST 11 Units/L (15-37) L 12/31/18 05:36 ALT 9 Units/L (12-78) L 12/31/18 05:36 Alkaline Phosphatase 61 Units/L (46-116) 12/31/18 05:36 Creatine Kinase 53 Units/L (26-192) 12/30/18 22:45 CK-MB (CK-2) 1.8 ng/mL (0-4.0) 12/30/18 22:45 CK/CKMB % Calc 3.4 % (<4) 12/30/18 22:45 Troponin I 0.02 ng/mL (0-1.5) 12/30/18 22:45 Total Protein 6.0 g/dL (6.4-8.2) L 12/31/18 05:36 Albumin 2.7 g/dL (3.4-5.0) L 12/31/18 05:36 Globulin 3.3 g/dL (2.5-4.5) 12/31/18 05:36 Albumin/Globulin Ratio 0.8 Ratio (1.1-2.1) L 12/31/18 05:36 Specimen Type Catherized urine 12/30/18 11:50 Urine Color Yellow (YELLOW) 12/30/18 11:50 Urine Appearance Cloudy (CLEAR) 12/30/18 11:50 Urine pH 6.5 (5.0 - 8.0) 12/30/18 11:50 Ur Specific Pray 1.015 (1.000-1.030) 12/30/18 11:50 Urine Protein 3+ (NEGATIVE) 12/30/18 11:50 Urine Glucose (UA) Negative (NEGATIVE) 12/30/18 11:50 Urine Ketones Negative (NEGATIVE) 12/30/18 11:50 Urine Occult Blood 1+ (NEGATIVE) 12/30/18 11:50 Urine Nitrite Positive (NEGATIVE) 12/30/18 11:50 Urine Bilirubin Negative (NEGATIVE) 12/30/18 11:50 Urine Urobilinogen Normal (NORMAL) 12/30/18 11:50 Ur Leukocyte Esterase 2+ (NEGATIVE) 12/30/18 11:50 Urine RBC 0-2 /HPF (NONE SEEN) 12/30/18 11:50 Urine WBC Tntc /HPF (NONE SEEN) 12/30/18 11:50 Ur Squamous Epith Cells Rare /HPF (NEGATIVE) 12/30/18 11:50 Urine Bacteria 4+ /HPF (NEGATIVE) 12/30/18 11:50 Hyaline Casts Few /LPF (NEGATIVE) 12/30/18 11:50 Ur Culture Indicated? Yes/culture set up 12/30/18 11:50 - Plan (1) COPD exacerbation Status: Acute Plan: IV ANTIBIOTICS, STEROIDS, RESPIRATORY TX, LASIX 20MG IV BID, 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 (2) Acute UTI Status: Acute Plan: IV ANTIBIOTICS, IV FLUIDS, 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
[2018-12-31] MEDS ORDERED: LASIX IVP SCH (21:00)
[2018-12-31] MEDS: ARICEPT TAB 10 MG PO SCH (21:06)
[2018-12-31] MEDS: PEPCID TAB 20 MG PO SCH (21:07)
[2018-12-31] MEDS: NEURONTIN CAP 300 MG PO SCH (21:07)
[2018-12-31] MEDS: SINGULAIR TAB 10 MG PO SCH (21:07)
[2018-12-31] MEDS: PRAVACHOL PO SCH (21:08)
[2019-01-01] MEDS: SOLU-Medrol 40 MG VIAL IVP SCH (00:18)
[2019-01-01] MEDS: DUONEB 0.5 MG/3 MG NEB SCH ×4 (01:15→12:12)
[2019-01-01] MEDS: FORTAZ or TAZICEF VIAL INJ IVP SCH (05:09)
[2019-01-01] MEDS: REQUIP PO SCH (05:09)
[2019-01-01 05:34] LABS: BASOPHILS % (AUTO) 0.1 % (0.2-1.0); HEMATOCRIT 25.8 % (36.0-47.0); HEMOGLOBIN 8.8 g/dL (12.0-16.0); LYMPHOCYTES # (AUTO) 0.6 X10^3/uL (1.3-2.9); LYMPHOCYTES % (AUTO) 8.3 % (21.0-51.0); MEAN CORPUSCULAR HEMOGLOBIN 29.8 pg (27.0-34.0); MEAN CORPUSCULAR VOLUME 87.5 fL (80.0-100.0); MEAN PLATELET VOLUME 9.4 fL (7.4-11.0); MONOCYTES # (AUTO) 0.3 x10^3/uL (0.3-0.8); MONOCYTES % (AUTO) 3.6 % (0.0-13.0); NEUTROPHILS # (AUTO) 6.5 x10^3/uL (2.2-4.8); PLATELET COUNT 226 X10^3/uL (150.0-450.0); RED BLOOD COUNT 2.95 X10^6/uL (3.5-5.4); RED CELL DISTRIBUTION WIDTH 15.9 % (11.6-16.5); WHITE BLOOD COUNT 7.4 X10^3/uL (3.6-10.0)
[2019-01-01 05:57] LABS: ALANINE AMINOTRANSFERASE 17 Units/L (12-78); ALBUMIN 2.8 g/dL (3.4-5.0); ALKALINE PHOSPHATASE 52 Units/L (46-116); ASPARTATE AMINO TRANSFERASE 27 Units/L (15-37); BLOOD UREA NITROGEN 23 mg/dL (7-18); CALCIUM 9.1 mg/dL (8.5-10.1); CHLORIDE 107 mmol/L (98-107); COR CA(FOR HYPOALB) 10.1 mg/dL (8.5-10.1); COR NA(FOR HYPERGLY) 141 mmol/L (136-145); CREATININE 0.93 mg/dL (0.55-1.02); SODIUM 140 mmol/L (136-145); TOTAL PROTEIN 6.2 g/dL (6.4-8.2); eGFR NON BLACK RACES > 60 (>60)
[2019-01-01] MEDS: PULMICORT NEB TX 0.5 MG NEB SCH (08:44)
[2019-01-01] MEDS ORDERED: LOVENOX INJ 40 MG SYR SC SCH (09:00)
[2019-01-01] MEDS: HEMOCYTE-PLUS PO SCH (09:30)
[2019-01-01] MEDS: NEURONTIN CAP 100 MG PO SCH (09:30)
[2019-01-01] MEDS: VSL#3 PO SCH (09:30)
[2019-01-01] MEDS: COZAAR PO SCH (09:31)
[2019-01-01] MEDS: PLAVIX PO SCH (09:31)
[2019-01-01] MEDS: NAMENDA TAB 10 MG PO SCH (09:32)
[2019-01-01] MEDS: ASPIRIN EC 81 MG PO SCH (09:32)
[2019-01-01] MEDS: PROTONIX TAB 40 MG PO SCH (09:32)
[2019-01-01] MEDS: EFFEXOR XR 75 MG CAP PO SCH (09:32)
[2019-01-01] MEDS: LOPRESSOR TAB 25 MG PO SCH (09:32)
[2019-01-01] MEDS ORDERED: LASIX PO SCH (11:00)
[2019-01-01 19:28] VITALS: BP 180/69
== END 2019-01-01 12:10 | disposition hospice, home (50) | DRG 690 ==
LOC: ER 10:16 → ICU 14:21 → MED/SURG 12-31 15:19
PROVIDERS: ADMIT Internal Medicine; ATTEND Internal Medicine
DX: R06.02 Shortness of breath; I10 Essential (primary) hypertension; R94.31 Abnormal electrocardiogram [ECG] [EKG]; B96.29 Other Escherichia coli [E. coli] as the cause of diseases classified elsewhere; J44.1 Chronic obstructive pulmonary disease with (acute) exacerbation; K21.9 Gastro-esophageal reflux disease without esophagitis; N39.0 Urinary tract infection, site not specified; E78.2 Mixed hyperlipidemia; R26.89 Other abnormalities of gait and mobility; I25.10 Atherosclerotic heart disease of native coronary artery without angina pectoris
CPT/HCPCS: 36415; 36600; 51702; 71010; 71045; 71275; 80053; 81001; 82550; 82553; 82803; 84484; 85025; 85378; 87040; 87086; 87088; 87186; 93005; 94640; 96365; 96367; 96374; 96375; 97116; 97162; 97165; 97535; 99285; A4216; A4222; J0713; J1650; J1940; J2185; J2920; J2930; J7030; J7050; J7620; J7626

== ENCOUNTER 2019-07-11 15:46 | Inpatient (IN) ==
--- NOTE | 2019-07-11 16:07 | DR.AMS ---
HPI Time Seen Time Seen by Provider: 07/11/19 16:01 PCP Primary Care Physician: JEANINE HPI Comment HPI Comment: PATIENT IS 85YR OLD FEMALE IN ER WITH GENERALIZED WEAKNESS, AMS, CHEST PAIN AND HEADACHE NOTED TODAY. PATIENTS FAMILY CALL 911 AND EMS WAS SENT TO PATIENTS HOME. SHE HAS HISTORY OF CAD WITH PREVIOUSMI. SHE IS ALERT IN ER BUT SLEEPY. Complaint Cheif Complaint Doctors Comments: GENERALIZED WEAKNESS, HEADACHEAND CHEST PAIN WITH AMS NOTED TODAY. Chief Complaint:: EMS WAS CALLED OUT TO A PT WITH WEAKNESS, HEADACHE, HEART ATTACK ONE YEAR AGO. PT ANSWER QUESTION BUT DOESN'T OPEN EYES. VS PER EMS 189/65 HR 75 O2 100% WITH OXYGEN AT 2 LPM. Self Treatment fo Chief Complaint: CALLED EMS Reviewed Nurses Notes Reviewed: Yes Source History Provided: Patient and EMS Mode of Arrival Mode of Arrival: EMS Timing Onset of Chief Complaint: 07/11/19 Came On: Suddenly Symptoms: Improving Duration Duration: Constant Duration: Hours Quality Quality: Decreased Alertness Severity Severity: Moderate Context Recent: None History Of: None Associated Signs and Symptoms Associated Signs and Symptoms: Generalized Weakness and Headache PMH PMH Past Medical History: Yes Past Medical History: Anemia, Arthritis, Asthma, COPD, Coronary Artery Disease, Dyslipidemia, GERD, Hypertension and [place] Past Surgical History: Yes Surgical History: Angioplasty/Stents, Cholecystectomy, Hysterectomy and Other Past Surgical History Comment: BREAST REMOVAL Family History History of Family Medical Conditions: Yes Family Medical History: Coronary Artery Disease and Hypertension Social History Does any household member use tobacco: Yes Alcohol Use: None Do you use any recreational Drugs:: No Lives With: Family Lives Where: Home infectious screening In the last 2 months have you had wt loss of >10#?: NO Have you had fever, night sweats or hemotysis?: No Have you traveled outside the country in the last 6 months?: No Isolation: Standard ROS Review of Systems Constitutional: See HPI, Weakness and Fatigue; negative Fever Eyes: No Symptoms Reported and See HPI ENTM: No Symptoms Reported and See HPI Respiratoy: See HPI, Non-Productive Cough and Short of Breath; negative Wheezing Cardiovascular: See HPI and Chest Pain; negative Edema and Palpitations Gastrointestinal/Abdominal: No Symptoms Reported and See HPI; negative Abdominal Pain, Diarrhea, Nausea and Vomiting Genitourinary: No Symptoms Reported Neurological: See HPI, Headache and Weakness Musculoskeletal: No Symptoms Reported and See HPI Integumentary: No Symptoms Reported and See HPI Hematologic/Lymphatic: No Symptoms Reported and See HPI Endocrine: No Symptoms Reported and See HPI Psychiatric: No Symptoms Reported and See HPI All Other Systems: Reviewed and Negative PE Vitals Vital Signs: Temp Pulse Pulse Pulse Resp BP BP 07/13/19 08:00 97.8 F 94 H 18 136/62 07/13/19 05:36 86 07/13/19 04:00 98.6 F 84 18 134/66 07/13/19 00:46 18 07/13/19 00:20 84 07/13/19 00:00 98.7 F 79 18 137/63 07/12/19 23:46 18 07/12/19 20:00 99.2 F 85 20 129/58 07/12/19 17:04 82 07/12/19 16:00 98.6 F 82 20 146/61 07/12/19 12:14 67 07/12/19 12:00 98.9 F 88 20 185/74 07/12/19 08:00 98.3 F 66 18 196/77 07/12/19 04:00 98.4 F 71 20 165/68 07/12/19 00:00 99.1 F 90 22 162/74 07/11/19 20:20 83 165/67 07/11/19 20:15 179 H 07/11/19 20:00 98.6 F 85 88 18 148/82 165/67 07/11/19 19:45 87 07/11/19 19:31 84 184/69 07/11/19 19:30 89 07/11/19 19:15 75 07/11/19 19:01 73 07/11/19 19:00 72 07/11/19 18:45 80 07/11/19 18:30 75 180/67 07/11/19 18:15 69 07/11/19 18:00 75 150/66 07/11/19 17:45 70 14 07/11/19 17:31 71 12 161/63 07/11/19 17:30 71 12 07/11/19 17:15 70 12 07/11/19 17:00 69 12 178/68 07/11/19 16:45 72 23 07/11/19 16:31 70 18 169/67 07/11/19 16:30 71 19 01/02/20 16:27 72 19 07/11/19 16:02 71 20 166/70 07/11/19 15:47 75 20 153/70 02/14/19 10:18 110/60 01/01/19 12:00 180/69 12/30/18 11:00 12/22/17 04:00 12/20/17 15:51 BP BP BP Pulse Ox 07/13/19 08:00 96 07/13/19 05:36 99 07/13/19 04:00 97 07/13/19 00:46 07/13/19 00:20 98 07/13/19 00:00 93 L 07/12/19 23:46 07/12/19 20:00 96 07/12/19 17:04 97 07/12/19 16:00 94 L 07/12/19 12:14 95 07/12/19 12:00 94 L 07/12/19 08:00 98 07/12/19 04:00 96 07/12/19 00:00 96 07/11/19 20:20 97 07/11/19 20:15 84 L 07/11/19 20:00 98 07/11/19 19:45 97 07/11/19 19:31 97 07/11/19 19:30 97 07/11/19 19:15 96 07/11/19 19:01 95 07/11/19 19:00 95 07/11/19 18:45 95 07/11/19 18:30 98 07/11/19 18:15 96 07/11/19 18:00 97 07/11/19 17:45 95 07/11/19 17:31 97 07/11/19 17:30 98 07/11/19 17:15 97 07/11/19 17:00 96 07/11/19 16:45 97 07/11/19 16:31 96 07/11/19 16:30 95 07/11/19 16:27 96 07/11/19 16:02 99 07/11/19 15:47 100 02/14/19 10:18 01/01/19 12:00 12/30/18 11:00 73/40 12/22/17 04:00 126/56 12/20/17 15:51 168/77 General Limitations: No Limitations General Appearance: Alert and In No Apparent Distress Head Head Exam: Normal Inspection and Atraumatic Head Exam Physical: Other (NONE OF THE A) Eyes Eye exam: Normal Appearance and PERRL Pupils: Regular, Round: Bilateral and Reactive: Bilateral ENT ENT Exam: Normal Exam, Normal Oropharynx, Normal External Ear Exam and TM's Normal Bilaterally External Ear Exam: Normal External Inspection; negative Mastoid Tenderness TM/Canal Exam: Bilateral: Normal Nose Exam: Normal Nose Exam Mouth Exam: Normal Inspection Throat Exam: Normal Inspection; negative Tonsillar Erythema, Tonsillomegaly and Tonsillar Exudate Neck Neck Exam: Normal Inspection and Trachea Midline; negative Tenderness and Lymphadenopathy Chest Chest Inspection: Normal Inspection and Symmetric Chest Wall Rise; negative Tenderness Respiratory Respiratory Exam: Normal Lung Sounds Bilat; negative Accessory Muscle Use and Respiratory Distress Respiratory Exam: Bilateral: Rhonchi and Lower: Rhonchi Cardiovascular Cardiovascular Exam: Regular Rate, Normal Rhythm, Normal Heart Sounds, Systolic Murmur and Diastolic Murmur Abdominal Exam Abdominal Exam: Normal Inspection, Normal Bowel Sounds and Soft; negative Tenderness Extremities Extremities Exam: Normal Inspection and Normal Capillary Refill; negative Tenderness, Edema and Calf Tenderness Back Back Exam: Normal Inspection Neurological Neurological Exam: Alert, Oriented X3 and CN II-XII Intact; negative Motor Sensory Deficit Patient Oriented To: Person, Place and Time Speech: Fluid Speech Cranial Nerve Exam: Gag reflex (XI): Normal and Tongue Deviation: Normal Motor Strength - LUE: 5/5 Motor Strength - RUE: 5/5 Motor Strength - LLE: 5/5 Motor Strength - RLE: 5/5 Upper Motor Neuron Exam: Babinski Sign: Normal Psychological Psychiatric Exam: Normal Affect and Anxious Skin Skin Exam: Dry MDM Differential Diagnosis Metabolic: Dehydration (MA, PNEUMONIA,TIA), Hypercalcemia, Hypernatremia, Hypoglycemia, Hyponatremia and Hypoxemia Structural: C-spine Injury and CVA Infectious: Sepsis and UTI COURSE Treatment Treatment: SEE ORDERS. Education/Counseling Education/Counseling: Patient and Family Educated On: Diagnosis ROR Labs Reviewed Laboratory Results Reviewed?: Yes Result Diagrams: 07/17/19 03:00 07/17/19 03:00 Laboratory: 07/12/19 10:42 Blood Blood Culture - Final 07/12/19 10:35 Blood Blood Culture - Final 07/11/19 17:54 Urine,Clean Catch Urine Culture - Final Escherichia Coli 07/11/19 21:40 Drainage Gram Stain - Final 07/11/19 21:40 Drainage Wound Culture - Final Methicillin Resis Staph Aureus WBC 8.8 X10^3/uL (3.6-10.0) 07/13/19 04:11 RBC 2.46 X10^6/uL (3.5-5.4) L 07/13/19 04:11 Hgb 7.6 g/dL (12.0-16.0) L 07/13/19 04:11 Hct 22.9 % (36.0-47.0) L 07/13/19 04:11 MCV 92.9 fL (80.0-100.0) 07/13/19 04:11 MCH 30.8 pg (27.0-34.0) 07/13/19 04:11 MCHC 33.2 g/dL (33.0-35.0) 07/13/19 04:11 RDW 15.8 % (11.6-16.5) 07/13/19 04:11 Plt Count 330 X10^3/uL (150.0-450.0) 07/13/19 04:11 Plt Count Comment Adequate (ADEQUATE) 07/13/19 04:11 MPV 9.0 fL (7.4-11.0) 07/13/19 04:11 Neut % (Auto) 73.3 % (42.0-75.0) 07/13/19 04:11 Lymph % (Auto) 15.7 % (21.0-51.0) L 07/13/19 04:11 [place] % (Auto) 10.6 % (0.0-13.0) 07/13/19 04:11 Eos % (Auto) 0.0 % (0.9-2.9) L 07/13/19 04:11 Baso % (Auto) 0.4 % (0.2-1.0) 07/13/19 04:11 Neut # (Auto) 6.4 x10^3/uL (2.2-4.8) H 07/13/19 04:11 Lymph # (Auto) 1.4 X10^3/uL (1.3-2.9) 07/13/19 04:11 [place] # (Auto) 0.9 x10^3/uL (0.3-0.8) H 07/13/19 04:11 Eos # (Auto) 0.0 x10^3/uL (0.0-0.2) 07/13/19 04:11 Baso # (Auto) 0.0 X10^3/uL (0.0-0.1) 07/13/19 04:11 Absolute Nucleated RBC 0.0 /100WBC 07/13/19 04:11 Plt Morphology Comment Normal (NORMAL) 07/13/19 04:11 RBC Morphology Abnormal (NORMAL) A 07/13/19 04:11 Hypochromasia Slight A 07/13/19 04:11 Sodium 142 mmol/L (136-145) 07/13/19 04:11 Corrected Sodium TNP 07/13/19 04:11 Potassium 4.5 mmol/L (3.5-5.1) 07/13/19 04:11 Chloride 108 mmol/L (98-107) H 07/13/19 04:11 Carbon Dioxide 24.5 mmol/L (21-32) 07/13/19 04:11 BUN 22 mg/dL (7-18) H 07/13/19 04:11 Creatinine 1.18 mg/dL (0.55-1.02) H 07/13/19 04:11 Est GFR (MDRD) Af Amer 56 (>60) L 07/13/19 04:11 Est GFR (MDRD) Non-Af 47 (>60) L 07/13/19 04:11 Glucose 100 mg/dL (65-99) H 07/13/19 04:11 Calcium 8.2 mg/dL (8.5-10.1) L 07/13/19 04:11 Corrected Calcium 9.0 mg/dL (8.5-10.1) 07/12/19 05:00 Magnesium 2.4 mg/dL (1.7-2.9) 07/11/19 21:11 Iron 26 ug/dL (50-175) L 07/12/19 05:00 Transferrin 261 mg/dL (202-364) 07/12/19 05:00 Ferritin 29 ng/mL (8-252) 07/12/19 05:00 Total Bilirubin 0.10 mg/dL (0.2-1.0) L 07/12/19 05:00 AST 16 Units/L (15-37) 07/12/19 05:00 ALT 18 Units/L (12-78) 07/12/19 05:00 Alkaline Phosphatase 61 Units/L (46-116) 07/12/19 05:00 Creatine Kinase 64 Units/L (26-192) 07/12/19 05:00 CK-MB (CK-2) 1.2 ng/mL (0-4.0) 07/12/19 05:00 CK/CKMB % Calc 1.9 % (<4) 07/12/19 05:00 Troponin I < 0.02 ng/mL (0-1.5) 07/12/19 05:00 Total Protein 6.5 g/dL (6.4-8.2) 07/12/19 05:00 Albumin 3.0 g/dL (3.4-5.0) L 07/12/19 05:00 Globulin 3.5 g/dL (2.5-4.5) 07/12/19 05:00 Albumin/Globulin Ratio 0.9 Ratio (1.1-2.1) L 07/12/19 05:00 Triglycerides 64 mg/dL (0-150) 07/12/19 05:00 Cholesterol 155 mg/dL (0-200) 07/12/19 05:00 LDL Cholesterol, Calc 75 mg/dL (0-100) 07/12/19 05:00 HDL Cholesterol 67 mg/dL (40-60) H 07/12/19 05:00 Cholesterol/HDL Ratio 2.3 (0.0-5.0) 07/12/19 05:00 Vitamin B12 498 pg/mL (193-986) 07/12/19 05:00 Folate > 20.0 ng/mL (>8.6) 07/12/19 05:00 Specimen Type Clean catch urine 07/12/19 05:50 Urine Color Yellow (YELLOW) 07/12/19 05:50 Urine Appearance Hazy (CLEAR) 07/12/19 05:50 Urine pH 6.0 (5.0 - 8.0) 07/12/19 05:50 Ur Specific [place] 1.015 (1.000-1.030) 07/12/19 05:50 Urine Protein 2+ (NEGATIVE) 07/12/19 05:50 Urine Glucose (UA) Negative (NEGATIVE) 07/12/19 05:50 Urine Ketones Negative (NEGATIVE) 07/12/19 05:50 Urine Occult Blood Negative (NEGATIVE) 07/12/19 05:50 Urine Nitrite Positive (NEGATIVE) 07/12/19 05:50 Urine Bilirubin Negative (NEGATIVE) 07/12/19 05:50 Urine Urobilinogen Normal (NORMAL) 07/12/19 05:50 Ur Leukocyte Esterase 2+ (NEGATIVE) 07/12/19 05:50 Urine RBC 0-2 /HPF (0-3) 07/12/19 05:50 Urine WBC 0-2 /HPF (0-5) 07/12/19 05:50 Ur Squamous Epith Cells Rare /HPF (NEGATIVE) 07/12/19 05:50 Amorphous Sediment 1+ /HPF (NEGATIVE) 07/11/19 17:54 Urine Bacteria Negative /HPF (NEGATIVE) 07/12/19 05:50 Urine Mucus Few /HPF (NEGATIVE) 07/12/19 05:50 Ur Culture Indicated? No/not indicated 07/12/19 05:50 Urine Opiates Screen Negative (NEG=<300) 07/11/19 17:54 Urine Methadone Screen Negative (NEG=<300) 07/11/19 17:54 Ur Barbiturates Screen Negative (NEG=<200) 07/11/19 17:54 Ur Phencyclidine Scrn Negative (NEG=<25) 07/11/19 17:54 Ur Amphetamines Screen Negative (NEG=<1000) 07/11/19 17:54 U Benzodiazepines Scrn Negative (NEG=<200) 07/11/19 17:54 Urine Cocaine Screen Negative (NEG=<300) 07/11/19 17:54 U Marijuana (THC) Screen Negative (NEG=<50) 07/11/19 17:54 XRAY XRAY Interpreted by: Radiologist XRAY Findings: REPORT NOTED AND DISCUSSED WITH PATIENT AND FAMILY. EKG Rate: 70 [place]: Normal Rhythm: NSR (POOR R WAVE PROGRESSION.) Block: None Hypertrophy: None ST: Ant, Lat and Ischemia Opioid Opioid Risk Tool Age (Michael box if 16-45): No History of Preadolescent Sexual Abuse: No Total: 0 Total Score Risk Category: Low Risk Copyright: [employer] SEGOVIA predicting aberrant behaviors Diagnosis Discharge Problem: Generalized weakness Chest pain Qualifiers: Chest pain type: precordial pain Qualified Code(s): R07.2 - Precordial pain UTI (urinary tract infection) Qualifiers: Urinary tract infection type: site unspecified Hematuria presence: with hematuria Qualified Code(s): N39.0 - Urinary tract infection, site not specified AMS (altered mental status) Qualifiers: Altered mental status type: transient alteration of awareness Qualified Code(s): R40.4 - Transient alteration of awareness Instructions Instructions: Fall Prevention in the Home, Adult, [id number] Steps to Quit Smoking, [id number] Chronic Obstructive Pulmonary Disease, [id number] Urinary Tract Infection, Adult, Zpxx-an-Oozy Heart Failure, Dgrp-lg-Kusw E. Coli Infection Forms: Patient Portal
--- NOTE | 2019-07-11 16:32 | CT ---
HISTORY:Altered mental status, shortness of breathStudy: CT brain without contrastComparison:NoneTechnique:Multiple axial images of the brain were obtained without administration of IV contrast. Dose reduction techniques including Automated Exposure Control (AEC) and adjustment of mA and kV were utilized.Findings:There is cerebral volume loss and nonspecific white matter hypoattenuation suggestive of chronic microvascular ischemic changes.There is calcified plaque within the carotid and vertebral arteries. No evidence of acute hemorrhage, midline shift, mass effect or abnormal extra-axial fluid collection. The ventricular system is symmetric and nondilated.The soft tissues and osseous structures are unremarkable. The visualized paranasal sinuses are clear.IMPRESSION:1. No acute intracranial abnormality.Electronically signed by: BENNIE SEN (Jul 11, 2019 16:31:45)
--- NOTE | 2019-07-11 16:47 | RAD ---
HISTORY:Altered mental status, shortness of breathStudy: Single view chestComparison:12/31/2018Findings:Surgical clips are projected over the left thorax and right upper quadrant. Chronic emphysematous changes are present. No infiltrate, effusion, or pneumothorax identified .Cardiac and mediastinal contours are within normal limits .The soft tissues are intact .IMPRESSION:1. No acute cardiopulmonary abnormality.Electronically signed by: BENNIE SEN (Jul 11, 2019 16:46:19)
[2019-07-11 17:21] LABS: BASOPHILS # (AUTO) 0.1 X10^3/uL (0.0-0.1); BASOPHILS % (AUTO) 0.8 % (0.2-1.0); EOSINOPHILS # (AUTO) 0.1 x10^3/uL (0.0-0.2); EOSINOPHILS % (AUTO) 1.4 % (0.9-2.9); HEMATOCRIT 27.1 % (36.0-47.0); HEMOGLOBIN 8.7 g/dL (12.0-16.0); LYMPHOCYTES # (AUTO) 1.7 X10^3/uL (1.3-2.9); LYMPHOCYTES % (AUTO) 21.3 % (21.0-51.0); MEAN CORPUSCULAR HGB CONC 32.1 g/dL (33.0-35.0); MEAN CORPUSCULAR VOLUME 93.5 fL (80.0-100.0); MEAN PLATELET VOLUME 8.7 fL (7.4-11.0); MONOCYTES % (AUTO) 12.6 % (0.0-13.0); NEUTROPHILS % (AUTO) 63.9 % (42.0-75.0); PLATELET COUNT 361 X10^3/uL (150.0-450.0); RED CELL DISTRIBUTION WIDTH 16.2 % (11.6-16.5); WHITE BLOOD COUNT 7.8 X10^3/uL (3.6-10.0)
[2019-07-11 17:40] LABS: BLOOD UREA NITROGEN 19 mg/dL (7-18); CALCIUM 8.4 mg/dL (8.5-10.1); CARBON DIOXIDE 25.7 mmol/L (21-32); CHLORIDE 106 mmol/L (98-107); CREATININE 1.25 mg/dL (0.55-1.02); SODIUM 143 mmol/L (136-145); TROPONIN I < 0.02 ng/mL (0-1.5); eGFR NON BLACK RACES 44 (>60)
[2019-07-11 17:46] LABS: ALANINE AMINOTRANSFERASE 21 Units/L (12-78); ALBUMIN 3.3 g/dL (3.4-5.0); ALKALINE PHOSPHATASE 69 Units/L (46-116); ASPARTATE AMINO TRANSFERASE 17 Units/L (15-37); CKMB % 1.6 % (<4); CREATINE KINASE 69 Units/L (26-192); CREATINE KINASE MB 1.1 ng/mL (0-4.0); TOTAL PROTEIN 7.2 g/dL (6.4-8.2)
[2019-07-11 18:12] LABS: BILIRUBIN,URINE NEGATIVE (NEGATIVE); BLOOD/HEMOGLOBIN,URINE NEGATIVE (NEGATIVE); GLUCOSE, URINE NEGATIVE (NEGATIVE); KETONES,URINE NEGATIVE (NEGATIVE); LEUKOCYTE ESTERASE ,URINE 1+ (NEGATIVE); NITRITES,URINE POSITIVE (NEGATIVE); PROTEIN,URINE 2+ (NEGATIVE); UROBILINOGEN,URINE NORMAL (NORMAL)
[2019-07-11 18:22] LABS: AMORPHOUS SEDIMENT,UR 1+ /HPF (NEGATIVE); APPEARANCE,URINE CLEAR (CLEAR); BACTERIA,URINE 2+ /HPF (NEGATIVE); COLOR,URINE YELLOW (YELLOW); RBC,URINE NONE SEEN /HPF (0-3); SQUAMOUS EPITHELIAL CELL,UR RARE /HPF (NEGATIVE)
[2019-07-11 22:47] VITALS: BMI 27.4
[2019-07-11 23:51] LABS: CKMB % 1.4 % (<4); CREATINE KINASE 72 Units/L (26-192); CREATINE KINASE MB < 1.0 ng/mL (0-4.0); TROPONIN I < 0.02 ng/mL (0-1.5)
[2019-07-12 06:10] LABS: BILIRUBIN,URINE NEGATIVE (NEGATIVE); BLOOD/HEMOGLOBIN,URINE NEGATIVE (NEGATIVE); GLUCOSE, URINE NEGATIVE (NEGATIVE); KETONES,URINE NEGATIVE (NEGATIVE); LEUKOCYTE ESTERASE ,URINE 2+ (NEGATIVE); NITRITES,URINE POSITIVE (NEGATIVE); PROTEIN,URINE 2+ (NEGATIVE); UROBILINOGEN,URINE NORMAL (NORMAL)
[2019-07-12 06:11] LABS: BASOPHILS # (AUTO) 0.1 X10^3/uL (0.0-0.1); EOSINOPHILS # (AUTO) 0.1 x10^3/uL (0.0-0.2); HEMATOCRIT 23.7 % (36.0-47.0); HEMOGLOBIN 7.7 g/dL (12.0-16.0); LYMPHOCYTES # (AUTO) 1.7 X10^3/uL (1.3-2.9); LYMPHOCYTES % (AUTO) 21.9 % (21.0-51.0); MEAN CORPUSCULAR HEMOGLOBIN 30.1 pg (27.0-34.0); MEAN CORPUSCULAR HGB CONC 32.7 g/dL (33.0-35.0); MEAN PLATELET VOLUME 8.5 fL (7.4-11.0); MONOCYTES # (AUTO) 0.8 x10^3/uL (0.3-0.8); MONOCYTES % (AUTO) 10.1 % (0.0-13.0); PLATELET COUNT 355 X10^3/uL (150.0-450.0); RED BLOOD COUNT 2.58 X10^6/uL (3.5-5.4); RED CELL DISTRIBUTION WIDTH 16.1 % (11.6-16.5); WHITE BLOOD COUNT 7.6 X10^3/uL (3.6-10.0)
[2019-07-12 06:19] LABS: ALANINE AMINOTRANSFERASE 18 Units/L (12-78); ALKALINE PHOSPHATASE 61 Units/L (46-116); ASPARTATE AMINO TRANSFERASE 16 Units/L (15-37); BLOOD UREA NITROGEN 19 mg/dL (7-18); CALCIUM 8.2 mg/dL (8.5-10.1); CARBON DIOXIDE 25.9 mmol/L (21-32); CHLORIDE 109 mmol/L (98-107); CHOL/HDL RATIO 2.3 (0.0-5.0); CHOLESTEROL 155 mg/dL (0-200); CKMB % 1.9 % (<4); CREATINE KINASE 64 Units/L (26-192); CREATINE KINASE MB 1.2 ng/mL (0-4.0); CREATININE 1.11 mg/dL (0.55-1.02); HDL CHOLESTEROL 67 mg/dL (40-60); SODIUM 144 mmol/L (136-145); TOTAL PROTEIN 6.5 g/dL (6.4-8.2); TRIGLYCERIDES 64 mg/dL (0-150); TROPONIN I < 0.02 ng/mL (0-1.5); eGFR NON BLACK RACES 50 (>60)
[2019-07-12 06:19] LABS: APPEARANCE,URINE HAZY (CLEAR); COLOR,URINE YELLOW (YELLOW)
[2019-07-12 06:20] LABS: BACTERIA,URINE NEGATIVE /HPF (NEGATIVE); MUCUS,URINE FEW /HPF (NEGATIVE); RBC,URINE 0-2 /HPF (0-3); SQUAMOUS EPITHELIAL CELL,UR RARE /HPF (NEGATIVE)
[2019-07-12 06:49] LABS: PLATELET MORPHOLOGY COMMENT NORMAL (NORMAL)
[2019-07-12 06:50] LABS: HYPOCHROMASIA SLIGHT
[2019-07-12] MEDS ORDERED: TRAMADOL ACETAMINOPHEN PO PRN (08:16)
[2019-07-12] MEDS ORDERED: NS 500 ML IV 500 ML IV ONE (09:26)
[2019-07-12] MEDS: ROCEPHIN VIAL 1 GRAM 1 G in NS 100 ML IV + SPIKE MINIBAG* 100 ML IV SCH ×2 (09:41→09:42)
[2019-07-12 09:48] LABS: IRON 26 ug/dL (50-175)
[2019-07-12] MEDS: LOPRESSOR TAB 50 MG PO SCH ×2 (09:51→20:29)
[2019-07-12] MEDS: PEPCID TAB 20 MG PO SCH (09:51)
[2019-07-12] MEDS: SINGULAIR TAB 10 MG PO SCH (09:52)
[2019-07-12] MEDS: HEMOCYTE-PLUS PO SCH (09:52)
[2019-07-12] MEDS: PROTONIX TAB 40 MG PO SCH ×2 (09:52→20:30)
[2019-07-12] MEDS: LASIX PO SCH (09:52)
[2019-07-12] MEDS: COZAAR PO SCH (09:52)
[2019-07-12] MEDS: ASPIRIN EC 81 MG PO SCH (09:52)
[2019-07-12] MEDS: PLAVIX PO SCH (09:57)
[2019-07-12] MEDS: APRESOLINE TAB 25 MG PO SCH ×3 (09:59→21:17)
--- NOTE | 2019-07-12 10:16 | DR.H&P ---
H&P History & Physical for Day of: H&P Date: 07/12/19 Chief Complaint Chief Complaint: AMS, weakness, chest pain Allergies Allergies Allergy/AdvReac Type Severity Reaction Status Date / Time levofloxacin [From Levaquin] Allergy Verified 07/11/19 23:02 History of Present Illness History of Present Illness: Patient is a 84y/o female with a PMH of CAD s/p PCI, CHF, COPD, breast/uterine cancer presented with weakness, confusion and chest pain. Patient is a poor historian so unable to get detailed history. She states she was feeling confused and weak so her daughter brought her in to the ED. She also had some chest pain but unable to provide details about onset and duration. She states her chest pain has resolved now. She is wheelchair bound due to prior stroke and knee osteoarthritis. Patient was previously in hospice but not sure if she is still enrolled due to her multiple visits to the ED. Patient's mentation seems to be improved on exam, not sure what her baseline is. No family present this morning. ED work-up: CT-head with no acute changes, CXR negative. UA: positive nitrites, LE and bacteria Troponins x 3 negative with no acute EKG ST changes Past Medical History Past Medical History: Anemia, Arthritis, Asthma, COPD, Coronary Artery Disease, Dyslipidemia, GERD, Hypertension and [place] Additional Medical History: Breast and uterine cancer Past Surgical History Surgical History: Angioplasty/Stents, Cholecystectomy, Hysterectomy, Tonsillectomy and Other Family History Family Medical History: Diabetes Mellitus, Cancer, [place], Coronary Artery Disease, Sudden Cardiac and Hypertension Social History Does patient currently use any type of tobacco product: Yes Have you used tobacco products in the last 12 months: Yes Type of Tobacco Use: Cigarettes How many years tobacco product used: 20 Does any household member use tobacco: Yes Alcohol Use: None Drug Use: None Prescription drug monitoring program results: PDMP was not reviewed Medications Home Medications: levofloxacin [From Levaquin] Allergy (Verified 07/11/19 23:02) CONTINUE taking the following medications cholecalciferol (vitamin D3) [Vitamin D3] 1 unit PO DAILY 07/11/19 [History] tetracycline 250 mg PO .Q6 07/11/19 [History] tetracycline 250 mg PO Q6H 07/11/19 [History] tramadol-acetaminophen 1 tab PO BID PRN 07/11/19 [History] Labs Result Diagrams: 07/12/19 05:00 07/12/19 05:00 Labs: 07/11/19 21:40 Drainage Gram Stain - Final Laboratory WBC 7.6 X10^3/uL (3.6-10.0) 07/12/19 05:00 RBC 2.58 X10^6/uL (3.5-5.4) L 07/12/19 05:00 Hgb 7.7 g/dL (12.0-16.0) L 07/12/19 05:00 Hct 23.7 % (36.0-47.0) L 07/12/19 05:00 MCV 92.0 fL (80.0-100.0) 07/12/19 05:00 MCH 30.1 pg (27.0-34.0) 07/12/19 05:00 MCHC 32.7 g/dL (33.0-35.0) L 07/12/19 05:00 RDW 16.1 % (11.6-16.5) 07/12/19 05:00 Plt Count 355 X10^3/uL (150.0-450.0) 07/12/19 05:00 Plt Count Comment Adequate (ADEQUATE) 07/12/19 05:00 MPV 8.5 fL (7.4-11.0) 07/12/19 05:00 Neut % (Auto) 66.0 % (42.0-75.0) 07/12/19 05:00 Lymph % (Auto) 21.9 % (21.0-51.0) 07/12/19 05:00 [place] % (Auto) 10.1 % (0.0-13.0) 07/12/19 05:00 Eos % (Auto) 1.0 % (0.9-2.9) 07/12/19 05:00 Baso % (Auto) 1.0 % (0.2-1.0) 07/12/19 05:00 Neut # (Auto) 5.0 x10^3/uL (2.2-4.8) H 07/12/19 05:00 Lymph # (Auto) 1.7 X10^3/uL (1.3-2.9) 07/12/19 05:00 [place] # (Auto) 0.8 x10^3/uL (0.3-0.8) 07/12/19 05:00 Eos # (Auto) 0.1 x10^3/uL (0.0-0.2) 07/12/19 05:00 Baso # (Auto) 0.1 X10^3/uL (0.0-0.1) 07/12/19 05:00 Absolute Nucleated RBC 0.0 /100WBC 07/12/19 05:00 Plt Morphology Comment Normal (NORMAL) 07/12/19 05:00 RBC Morphology Abnormal (NORMAL) A 07/12/19 05:00 Hypochromasia Slight A 07/12/19 05:00 Sodium 144 mmol/L (136-145) 07/12/19 05:00 Corrected Sodium TNP 07/12/19 05:00 Potassium 4.6 mmol/L (3.5-5.1) 07/12/19 05:00 Chloride 109 mmol/L (98-107) H 07/12/19 05:00 Carbon Dioxide 25.9 mmol/L (21-32) 07/12/19 05:00 BUN 19 mg/dL (7-18) H 07/12/19 05:00 Creatinine 1.11 mg/dL (0.55-1.02) H 07/12/19 05:00 Est GFR (MDRD) Af Amer > 60 (>60) 07/12/19 05:00 Est GFR (MDRD) Non-Af 50 (>60) L 07/12/19 05:00 Glucose 98 mg/dL (65-99) 07/12/19 05:00 Calcium 8.2 mg/dL (8.5-10.1) L 07/12/19 05:00 Corrected Calcium 9.0 mg/dL (8.5-10.1) 07/12/19 05:00 Magnesium 2.4 mg/dL (1.7-2.9) 07/11/19 21:11 Iron 26 ug/dL (50-175) L 07/12/19 05:00 Transferrin 261 mg/dL (202-364) 07/12/19 05:00 Ferritin 29 ng/mL (8-252) 07/12/19 05:00 Total Bilirubin 0.10 mg/dL (0.2-1.0) L 07/12/19 05:00 AST 16 Units/L (15-37) 07/12/19 05:00 ALT 18 Units/L (12-78) 07/12/19 05:00 Alkaline Phosphatase 61 Units/L (46-116) 07/12/19 05:00 Creatine Kinase 64 Units/L (26-192) 07/12/19 05:00 CK-MB (CK-2) 1.2 ng/mL (0-4.0) 07/12/19 05:00 CK/CKMB % Calc 1.9 % (<4) 07/12/19 05:00 Troponin I < 0.02 ng/mL (0-1.5) 07/12/19 05:00 Total Protein 6.5 g/dL (6.4-8.2) 07/12/19 05:00 Albumin 3.0 g/dL (3.4-5.0) L 07/12/19 05:00 Globulin 3.5 g/dL (2.5-4.5) 07/12/19 05:00 Albumin/Globulin Ratio 0.9 Ratio (1.1-2.1) L 07/12/19 05:00 Triglycerides 64 mg/dL (0-150) 07/12/19 05:00 Cholesterol 155 mg/dL (0-200) 07/12/19 05:00 LDL Cholesterol, Calc 75 mg/dL (0-100) 07/12/19 05:00 HDL Cholesterol 67 mg/dL (40-60) H 07/12/19 05:00 Cholesterol/HDL Ratio 2.3 (0.0-5.0) 07/12/19 05:00 Vitamin B12 498 pg/mL (193-986) 07/12/19 05:00 Folate > 20.0 ng/mL (>8.6) 07/12/19 05:00 Specimen Type Clean catch urine 07/12/19 05:50 Urine Color Yellow (YELLOW) 07/12/19 05:50 Urine Appearance Hazy (CLEAR) 07/12/19 05:50 Urine pH 6.0 (5.0 - 8.0) 07/12/19 05:50 Ur Specific [place] 1.015 (1.000-1.030) 07/12/19 05:50 Urine Protein 2+ (NEGATIVE) 07/12/19 05:50 Urine Glucose (UA) Negative (NEGATIVE) 07/12/19 05:50 Urine Ketones Negative (NEGATIVE) 07/12/19 05:50 Urine Occult Blood Negative (NEGATIVE) 07/12/19 05:50 Urine Nitrite Positive (NEGATIVE) 07/12/19 05:50 Urine Bilirubin Negative (NEGATIVE) 07/12/19 05:50 Urine Urobilinogen Normal (NORMAL) 07/12/19 05:50 Ur Leukocyte Esterase 2+ (NEGATIVE) 07/12/19 05:50 Urine RBC 0-2 /HPF (0-3) 07/12/19 05:50 Urine WBC 0-2 /HPF (0-5) 07/12/19 05:50 Ur Squamous Epith Cells Rare /HPF (NEGATIVE) 07/12/19 05:50 Amorphous Sediment 1+ /HPF (NEGATIVE) 07/11/19 17:54 Urine Bacteria Negative /HPF (NEGATIVE) 07/12/19 05:50 Urine Mucus Few /HPF (NEGATIVE) 07/12/19 05:50 Ur Culture Indicated? No/not indicated 07/12/19 05:50 Urine Opiates Screen Negative (NEG=<300) 07/11/19 17:54 Urine Methadone Screen Negative (NEG=<300) 07/11/19 17:54 Ur Barbiturates Screen Negative (NEG=<200) 07/11/19 17:54 Ur Phencyclidine Scrn Negative (NEG=<25) 07/11/19 17:54 Ur Amphetamines Screen Negative (NEG=<1000) 07/11/19 17:54 U Benzodiazepines Scrn Negative (NEG=<200) 07/11/19 17:54 Urine Cocaine Screen Negative (NEG=<300) 07/11/19 17:54 U Marijuana (THC) Screen Negative (NEG=<50) 07/11/19 17:54 Review of Systems Constitutional: Weakness and Malaise Eyes: No Symptoms Reported ENT: No Symptoms Reported Respiratory: Wheezing Cardiovascular: Chest Pain and Edema Gastrointestinal: No Symptoms Reported Genitourinary: Frequency Musculoskeletal: Leg Pain Skin: No Symptoms Reported Neurological: Confusion Physical Exam Vital Signs: Temperature 98.3 F Pulse Rate [Right] 66 Pulse Rate 83 Respiratory Rate 18 Blood Pressure [Left Calf] 126/56 Blood Pressure [Left Arm] 196/77 Blood Pressure [Right Calf] 168/77 Blood Pressure [Right Arm] 73/40 Blood Pressure 165/67 O2 Sat by Pulse Oximetry 98 Oriented: Time and Person Eyes: Normal Ear: Normal Respiratory: Wheezes Throughout Cardiovascular: Normal Auscultation: Bowel Sounds: Normal Palpation: Normal Tenderness: Normal Skin: Normal Musculoskeletal: Left, Knee and Swelling Psychiatric: Normal Mood Description: Calm Affect: Normal Speech Pattern: Clear and Appropriate Assessment/Plan (1) Chest pain: Qualifiers: Chest pain type: chest pain on breathing Qualified Code(s): R07.1 - Chest pain on breathing; R07.81 - Pleurodynia Status: Resolved Plan: presented with chest pain, now resolved Troponin x 3 negative, no acute ST changes on EKG , CXR negative Normal stress test in December 2018, EF 64% Continue telemetry Hx of CAD, CHF: resume home medications (2) COPD exacerbation: Status: Acute Plan: Wheezing on exam, CXR negative Will start prednisone and duonebs (3) Urinary tract infection: Qualifiers: Hematuria presence: with hematuria Urinary tract infection type: acute cystitis Qualified Code(s): N30.01 - Acute cystitis with hematuria Status: Acute Plan: Start Rocephin, follow urine culture (4) Anemia: Qualifiers: Anemia type: iron deficiency Iron deficiency anemia type: unspecified iron deficiency Qualified Code(s): D50.9 - Iron deficiency anemia, unspecified Status: Chronic Plan: Hgb: 8.7 on admission, now 7.7, patient did receive fluids in the ED Anemia panel Continue iron supplements, will repeat H/H later this evening, monitor AM labs (5) Generalized weakness: Status: Acute Plan: 2/2 to infection, PT/OT once stable (6) ARF (acute renal failure): Qualifiers: Acute renal failure type: unspecified Qualified Code(s): N17.9 - Acute kidney failure, unspecified Status: Acute Plan: Creatinine trending down, 1.11 this AM Monitor AM labs Review H&P Reviewed: Yes Patient was examined?: Yes
[2019-07-12] MEDS ORDERED: ZOFRAN INJ 4 MG VIAL IVP PRN (11:39)
[2019-07-12] MEDS: PREDNISONE TAB 20 MG PO SCH (11:42)
[2019-07-12] MEDS: DUONEB 0.5 MG/3 MG (3 mL) NEB SCH ×3 (12:13→17:04)
[2019-07-12] MEDS: REQUIP PO SCH ×2 (14:25→21:18)
[2019-07-12] MEDS: NEURONTIN CAP 100 MG PO SCH (14:25)
[2019-07-12 18:02] LABS: HEMATOCRIT 27.9 % (36.0-47.0); HEMOGLOBIN 9.2 g/dL (12.0-16.0)
[2019-07-12] MEDS: NEURONTIN CAP 300 MG PO SCH (20:30)
[2019-07-12] MEDS: PRAVACHOL PO SCH (20:30)
[2019-07-12] MEDS: ULTRAM PO PRN (23:46)
[2019-07-13] MEDS: DUONEB 0.5 MG/3 MG (3 mL) NEB SCH ×4 (00:20→16:35)
[2019-07-13 05:32] LABS: BASOPHILS % (AUTO) 0.4 % (0.2-1.0); HEMATOCRIT 22.9 % (36.0-47.0); HEMOGLOBIN 7.6 g/dL (12.0-16.0); LYMPHOCYTES # (AUTO) 1.4 X10^3/uL (1.3-2.9); LYMPHOCYTES % (AUTO) 15.7 % (21.0-51.0); MEAN CORPUSCULAR HEMOGLOBIN 30.8 pg (27.0-34.0); MEAN CORPUSCULAR HGB CONC 33.2 g/dL (33.0-35.0); MEAN CORPUSCULAR VOLUME 92.9 fL (80.0-100.0); MONOCYTES # (AUTO) 0.9 x10^3/uL (0.3-0.8); MONOCYTES % (AUTO) 10.6 % (0.0-13.0); NEUTROPHILS # (AUTO) 6.4 x10^3/uL (2.2-4.8); NEUTROPHILS % (AUTO) 73.3 % (42.0-75.0); PLATELET COUNT 330 X10^3/uL (150.0-450.0); RED BLOOD COUNT 2.46 X10^6/uL (3.5-5.4); RED CELL DISTRIBUTION WIDTH 15.8 % (11.6-16.5); WHITE BLOOD COUNT 8.8 X10^3/uL (3.6-10.0)
[2019-07-13] MEDS: APRESOLINE TAB 25 MG PO SCH ×3 (05:38→21:01)
[2019-07-13 05:39] LABS: BLOOD UREA NITROGEN 22 mg/dL (7-18); CALCIUM 8.2 mg/dL (8.5-10.1); CARBON DIOXIDE 24.5 mmol/L (21-32); CHLORIDE 108 mmol/L (98-107); CREATININE 1.18 mg/dL (0.55-1.02); SODIUM 142 mmol/L (136-145); eGFR NON BLACK RACES 47 (>60)
[2019-07-13] MEDS: REQUIP PO SCH ×3 (05:39→21:02)
[2019-07-13 06:12] LABS: HYPOCHROMASIA SLIGHT; PLATELET MORPHOLOGY COMMENT NORMAL (NORMAL)
[2019-07-13] MEDS ORDERED: NS 100 ML IV 100 ML IV ONE (08:58)
[2019-07-13] MEDS ORDERED: MERREM VIAL ONE (08:59)
[2019-07-13] MEDS: ROCEPHIN VIAL 1 GRAM 1 G in NS 100 ML IV + SPIKE MINIBAG* 100 ML IV SCH (09:02)
[2019-07-13] MEDS: PLAVIX PO SCH (09:05)
[2019-07-13] MEDS: PEPCID TAB 20 MG PO SCH (09:06)
[2019-07-13] MEDS: ASPIRIN EC 81 MG PO SCH (09:07)
[2019-07-13] MEDS: LOPRESSOR TAB 50 MG PO SCH ×2 (09:07→21:02)
[2019-07-13] MEDS: COZAAR PO SCH (09:08)
[2019-07-13] MEDS: LASIX PO SCH (09:08)
[2019-07-13] MEDS: SINGULAIR TAB 10 MG PO SCH (09:09)
[2019-07-13] MEDS: PREDNISONE TAB 20 MG PO SCH (09:09)
[2019-07-13] MEDS: HEMOCYTE-PLUS PO SCH (09:09)
[2019-07-13] MEDS: PROTONIX TAB 40 MG PO SCH ×2 (09:10→21:03)
[2019-07-13] MEDS: NEURONTIN CAP 100 MG PO SCH (14:18)
[2019-07-13] MEDS: SOLU-Medrol 40 MG VIAL IVP SCH ×2 (14:18→21:03)
[2019-07-13] MEDS: NEURONTIN CAP 300 MG PO SCH (21:02)
[2019-07-13] MEDS: PRAVACHOL PO SCH (21:03)
[2019-07-13] MEDS: VIBRAMYCIN 100 MG in D5W 250 ML IV 250 ML IV SCH (21:04)
[2019-07-14] MEDS: DUONEB 0.5 MG/3 MG (3 mL) NEB SCH ×5 (00:30→17:18)
[2019-07-14] MEDS ORDERED: REQUIP PO ONE (05:38)
[2019-07-14 05:51] LABS: BASOPHILS % (AUTO) 0.2 % (0.2-1.0); HEMATOCRIT 22.4 % (36.0-47.0); HEMOGLOBIN 7.4 g/dL (12.0-16.0); LYMPHOCYTES # (AUTO) 0.8 X10^3/uL (1.3-2.9); MEAN CORPUSCULAR HGB CONC 32.9 g/dL (33.0-35.0); MEAN CORPUSCULAR VOLUME 91.3 fL (80.0-100.0); MEAN PLATELET VOLUME 8.7 fL (7.4-11.0); MONOCYTES # (AUTO) 0.5 x10^3/uL (0.3-0.8); MONOCYTES % (AUTO) 5.3 % (0.0-13.0); NEUTROPHILS # (AUTO) 7.9 x10^3/uL (2.2-4.8); NEUTROPHILS % (AUTO) 85.5 % (42.0-75.0); PLATELET COUNT 332 X10^3/uL (150.0-450.0); RED BLOOD COUNT 2.46 X10^6/uL (3.5-5.4); RED CELL DISTRIBUTION WIDTH 15.7 % (11.6-16.5); WHITE BLOOD COUNT 9.2 X10^3/uL (3.6-10.0)
[2019-07-14 05:56] LABS: CALCIUM 8.2 mg/dL (8.5-10.1); CARBON DIOXIDE 25.2 mmol/L (21-32); CREATININE 1.26 mg/dL (0.55-1.02)
[2019-07-14 06:12] LABS: PLATELET MORPHOLOGY COMMENT NORMAL (NORMAL)
[2019-07-14 06:13] LABS: ANISOCYTOSIS SLIGHT; HYPOCHROMASIA SLIGHT
[2019-07-14] MEDS: SOLU-Medrol 40 MG VIAL IVP SCH (06:25)
[2019-07-14] MEDS: REQUIP PO SCH ×3 (06:25→21:56)
[2019-07-14] MEDS: APRESOLINE TAB 25 MG PO SCH ×3 (06:25→21:55)
[2019-07-14] MEDS: PROTONIX TAB 40 MG PO SCH ×2 (08:54→20:51)
[2019-07-14] MEDS: HEMOCYTE-PLUS PO SCH (08:55)
[2019-07-14] MEDS: ASPIRIN EC 81 MG PO SCH (08:55)
[2019-07-14] MEDS: SINGULAIR TAB 10 MG PO SCH (08:55)
[2019-07-14] MEDS: PEPCID TAB 20 MG PO SCH (08:55)
[2019-07-14] MEDS: LOPRESSOR TAB 25 MG PO SCH ×2 (08:55→20:52)
[2019-07-14] MEDS: PLAVIX PO SCH (08:56)
[2019-07-14] MEDS: ROCEPHIN VIAL 1 GRAM 1 G in NS 100 ML IV + SPIKE MINIBAG* 100 ML IV SCH (08:56)
[2019-07-14] MEDS: VIBRAMYCIN 100 MG in D5W 250 ML IV 250 ML IV SCH ×2 (08:57→20:48)
[2019-07-14] MEDS: COZAAR PO SCH (08:57)
[2019-07-14] MEDS: LASIX PO SCH (08:58)
--- NOTE | 2019-07-14 13:35 | PCM.PROG ---
Progress Note - Progress Note for Day of Date of Exam: 07/14/19 - Subjective Subjective: The patient is an 84-year-old white female who is a patient of Dr. Puri. She was an emergency room admission after presenting on July 10, 2019 with complaints of weakness and headache. The patient reports that she has had a cough and chest congestion. On admission to the emergency room, the patient was noted to have a urinary tract infection as well as chest pain. The patient had serial cardiac enzymes and EKGs with her troponin being negative times three with no ST changes. The patient has been treated for chronic obstructive pulmonary disease exacerbation. She has been on some oral Prednisone and was complaining of a little nausea. We will change her to a low dose of SoluMedrol IV and reports improvement with chest tightness this am. Pt continues with diffuse expiratory wheezes and central rhonchi on exam. The patient also has a history of some renal insufficiency and anemia. She is iron deficient and is currently on oral Iron replacement. Sputum specimen is uncollected. - Past Medical Family Social History Past Med/Fam/Surg Hx: No changes since H&P Allergies: Allergies levofloxacin [From Levaquin] Allergy (Verified 07/11/19 23:02) - Review of Systems ROS: No change since H&P - Vital Signs and I&O's Vital Signs: Temperature 98.4 F Pulse Rate [Left Brachial] 69 Pulse Rate [Right] 85 Pulse Rate 82 Respiratory Rate 18 Blood Pressure [Left Calf] 126/56 Blood Pressure [Left Arm] 134/59 Blood Pressure [Right Calf] 168/77 Blood Pressure [Right Arm] 162/72 Blood Pressure 165/67 O2 Sat by Pulse Oximetry 96 Intake and Output: Intake & Output 07/12/19 07/13/19 07/14/19 07/15/19 11:59 11:59 11:59 11:59 Intake Total 550 / 550 794 / 794 1709 Output Total 200 / 200 Balance 550 / 550 594 / 594 1709 - Physical Exam Oriented: Time, Person Eyes: Normal Ear: Normal Respiratory: Diminished, Wheezes Cardiovascular: Normal Auscultation: Bowel Sounds: Normal Tenderness: Normal Skin: Normal Musculoskeletal: Left, Knee, Swelling Psychiatric: Normal Mood Description: Calm Affect: Normal Speech Pattern: Clear, Appropriate - Laboratory and Diagnostics Result Diagrams: 07/14/19 04:24 07/14/19 04:24 Labs: 07/11/19 17:54 Urine,Clean Catch Urine Culture - Final Escherichia Coli 07/12/19 10:42 Blood Blood Culture - Preliminary 07/12/19 10:35 Blood Blood Culture - Preliminary 07/11/19 21:40 Drainage Gram Stain - Final 07/11/19 21:40 Drainage Wound Culture - Final Methicillin Resis Staph Aureus Laboratory WBC 9.2 X10^3/uL (3.6-10.0) 07/14/19 04:24 RBC 2.46 X10^6/uL (3.5-5.4) L 07/14/19 04:24 Hgb 7.4 g/dL (12.0-16.0) L 07/14/19 04:24 Hct 22.4 % (36.0-47.0) L 07/14/19 04:24 MCV 91.3 fL (80.0-100.0) 07/14/19 04:24 MCH 30.0 pg (27.0-34.0) 07/14/19 04:24 MCHC 32.9 g/dL (33.0-35.0) L 07/14/19 04:24 RDW 15.7 % (11.6-16.5) 07/14/19 04:24 Plt Count 332 X10^3/uL (150.0-450.0) 07/14/19 04:24 Plt Count Comment Adequate (ADEQUATE) 07/14/19 04:24 MPV 8.7 fL (7.4-11.0) 07/14/19 04:24 Neut % (Auto) 85.5 % (42.0-75.0) H 07/14/19 04:24 Lymph % (Auto) 9.0 % (21.0-51.0) L 07/14/19 04:24 [place] % (Auto) 5.3 % (0.0-13.0) 07/14/19 04:24 Eos % (Auto) 0.0 % (0.9-2.9) L 07/14/19 04:24 Baso % (Auto) 0.2 % (0.2-1.0) 07/14/19 04:24 Neut # (Auto) 7.9 x10^3/uL (2.2-4.8) H 07/14/19 04:24 Lymph # (Auto) 0.8 X10^3/uL (1.3-2.9) L 07/14/19 04:24 [place] # (Auto) 0.5 x10^3/uL (0.3-0.8) 07/14/19 04:24 Eos # (Auto) 0.0 x10^3/uL (0.0-0.2) 07/14/19 04:24 Baso # (Auto) 0.0 X10^3/uL (0.0-0.1) 07/14/19 04:24 Absolute Nucleated RBC 0.0 /100WBC 07/14/19 04:24 Plt Morphology Comment Normal (NORMAL) 07/14/19 04:24 RBC Morphology Abnormal (NORMAL) A 07/14/19 04:24 Hypochromasia Slight A 07/14/19 04:24 Anisocytosis Slight A 07/14/19 04:24 Sodium 142 mmol/L (136-145) 07/14/19 04:24 Corrected Sodium 144 mmol/L (136-145) 07/14/19 04:24 Potassium 4.3 mmol/L (3.5-5.1) 07/14/19 04:24 Chloride 105 mmol/L (98-107) 07/14/19 04:24 Carbon Dioxide 25.2 mmol/L (21-32) 07/14/19 04:24 BUN 27 mg/dL (7-18) H 07/14/19 04:24 Creatinine 1.26 mg/dL (0.55-1.02) H 07/14/19 04:24 Est GFR (MDRD) Af Amer 52 (>60) L 07/14/19 04:24 Est GFR (MDRD) Non-Af 43 (>60) L 07/14/19 04:24 Glucose 167 mg/dL (65-99) H 07/14/19 04:24 Calcium 8.2 mg/dL (8.5-10.1) L 07/14/19 04:24 Corrected Calcium 9.0 mg/dL (8.5-10.1) 07/12/19 05:00 Magnesium 2.4 mg/dL (1.7-2.9) 07/11/19 21:11 Iron 26 ug/dL (50-175) L 07/12/19 05:00 Transferrin 261 mg/dL (202-364) 07/12/19 05:00 Ferritin 29 ng/mL (8-252) 07/12/19 05:00 Total Bilirubin 0.10 mg/dL (0.2-1.0) L 07/12/19 05:00 AST 16 Units/L (15-37) 07/12/19 05:00 ALT 18 Units/L (12-78) 07/12/19 05:00 Alkaline Phosphatase 61 Units/L (46-116) 07/12/19 05:00 Creatine Kinase 64 Units/L (26-192) 07/12/19 05:00 CK-MB (CK-2) 1.2 ng/mL (0-4.0) 07/12/19 05:00 CK/CKMB % Calc 1.9 % (<4) 07/12/19 05:00 Troponin I < 0.02 ng/mL (0-1.5) 07/12/19 05:00 Total Protein 6.5 g/dL (6.4-8.2) 07/12/19 05:00 Albumin 3.0 g/dL (3.4-5.0) L 07/12/19 05:00 Globulin 3.5 g/dL (2.5-4.5) 07/12/19 05:00 Albumin/Globulin Ratio 0.9 Ratio (1.1-2.1) L 07/12/19 05:00 Triglycerides 64 mg/dL (0-150) 07/12/19 05:00 Cholesterol 155 mg/dL (0-200) 07/12/19 05:00 LDL Cholesterol, Calc 75 mg/dL (0-100) 07/12/19 05:00 HDL Cholesterol 67 mg/dL (40-60) H 07/12/19 05:00 Cholesterol/HDL Ratio 2.3 (0.0-5.0) 07/12/19 05:00 Vitamin B12 498 pg/mL (193-986) 07/12/19 05:00 Folate > 20.0 ng/mL (>8.6) 07/12/19 05:00 Specimen Type Clean catch urine 07/12/19 05:50 Urine Color Yellow (YELLOW) 07/12/19 05:50 Urine Appearance Hazy (CLEAR) 07/12/19 05:50 Urine pH 6.0 (5.0 - 8.0) 07/12/19 05:50 Ur Specific [place] 1.015 (1.000-1.030) 07/12/19 05:50 Urine Protein 2+ (NEGATIVE) 07/12/19 05:50 Urine Glucose (UA) Negative (NEGATIVE) 07/12/19 05:50 Urine Ketones Negative (NEGATIVE) 07/12/19 05:50 Urine Occult Blood Negative (NEGATIVE) 07/12/19 05:50 Urine Nitrite Positive (NEGATIVE) 07/12/19 05:50 Urine Bilirubin Negative (NEGATIVE) 07/12/19 05:50 Urine Urobilinogen Normal (NORMAL) 07/12/19 05:50 Ur Leukocyte Esterase 2+ (NEGATIVE) 07/12/19 05:50 Urine RBC 0-2 /HPF (0-3) 07/12/19 05:50 Urine WBC 0-2 /HPF (0-5) 07/12/19 05:50 Ur Squamous Epith Cells Rare /HPF (NEGATIVE) 07/12/19 05:50 Amorphous Sediment 1+ /HPF (NEGATIVE) 07/11/19 17:54 Urine Bacteria Negative /HPF (NEGATIVE) 07/12/19 05:50 Urine Mucus Few /HPF (NEGATIVE) 07/12/19 05:50 Ur Culture Indicated? No/not indicated 07/12/19 05:50 Urine Opiates Screen Negative (NEG=<300) 07/11/19 17:54 Urine Methadone Screen Negative (NEG=<300) 07/11/19 17:54 Ur Barbiturates Screen Negative (NEG=<200) 07/11/19 17:54 Ur Phencyclidine Scrn Negative (NEG=<25) 07/11/19 17:54 Ur Amphetamines Screen Negative (NEG=<1000) 07/11/19 17:54 U Benzodiazepines Scrn Negative (NEG=<200) 07/11/19 17:54 Urine Cocaine Screen Negative (NEG=<300) 07/11/19 17:54 U Marijuana (THC) Screen Negative (NEG=<50) 07/11/19 17:54 - Plan (1) Acute UTI Status: Acute Plan: CULTURE COLLECTED ON ADMISSION. IV ATBX THERAPY (2) COPD (chronic obstructive pulmonary disease) with acute bronchitis Status: Acute Plan: RESP THERAPY, SUPPLEMENTAL O2. AM CXR, IV ATBX, PULONARY TOILETING. NEEDS TO COLLECT SPUTUM SPECIMEN
[2019-07-14] MEDS: NEURONTIN CAP 100 MG PO SCH (13:39)
[2019-07-14] MEDS: COLACE CAP 100 MG PO SCH (20:50)
[2019-07-14] MEDS: NEURONTIN CAP 300 MG PO SCH (20:51)
[2019-07-14] MEDS: PRAVACHOL PO SCH (20:51)
[2019-07-14] MEDS ORDERED: VALIUM PO PRN (21:30)
[2019-07-15] MEDS: DUONEB 0.5 MG/3 MG (3 mL) NEB SCH ×4 (00:59→17:32)
[2019-07-15 05:33] LABS: BASOPHILS # (AUTO) 0.1 X10^3/uL (0.0-0.1); BASOPHILS % (AUTO) 0.5 % (0.2-1.0); EOSINOPHILS # (AUTO) 0.1 x10^3/uL (0.0-0.2); EOSINOPHILS % (AUTO) 0.8 % (0.9-2.9); HEMATOCRIT 23.9 % (36.0-47.0); HEMOGLOBIN 7.7 g/dL (12.0-16.0); LYMPHOCYTES # (AUTO) 2.2 X10^3/uL (1.3-2.9); LYMPHOCYTES % (AUTO) 23.3 % (21.0-51.0); MEAN CORPUSCULAR HEMOGLOBIN 29.9 pg (27.0-34.0); MEAN CORPUSCULAR HGB CONC 32.2 g/dL (33.0-35.0); MEAN CORPUSCULAR VOLUME 93.1 fL (80.0-100.0); MEAN PLATELET VOLUME 8.8 fL (7.4-11.0); MONOCYTES # (AUTO) 1.3 x10^3/uL (0.3-0.8); MONOCYTES % (AUTO) 13.3 % (0.0-13.0); NEUTROPHILS # (AUTO) 5.9 x10^3/uL (2.2-4.8); NEUTROPHILS % (AUTO) 62.1 % (42.0-75.0); PLATELET COUNT 359 X10^3/uL (150.0-450.0); RED BLOOD COUNT 2.56 X10^6/uL (3.5-5.4); RED CELL DISTRIBUTION WIDTH 15.6 % (11.6-16.5); WHITE BLOOD COUNT 9.5 X10^3/uL (3.6-10.0)
[2019-07-15 05:36] LABS: BLOOD UREA NITROGEN 28 mg/dL (7-18); CALCIUM 7.9 mg/dL (8.5-10.1); CARBON DIOXIDE 24.7 mmol/L (21-32); CHLORIDE 108 mmol/L (98-107); SODIUM 144 mmol/L (136-145); eGFR NON BLACK RACES 42 (>60)
[2019-07-15] MEDS: REQUIP PO SCH ×3 (05:37→21:19)
[2019-07-15] MEDS: APRESOLINE TAB 25 MG PO SCH ×3 (05:37→21:18)
[2019-07-15 06:01] LABS: ANISOCYTOSIS SLIGHT; HYPOCHROMASIA SLIGHT; PLATELET MORPHOLOGY COMMENT NORMAL (NORMAL)
[2019-07-15] MEDS: ROCEPHIN VIAL 1 GRAM 1 G in NS 100 ML IV + SPIKE MINIBAG* 100 ML IV SCH (08:49)
[2019-07-15] MEDS: VIBRAMYCIN 100 MG in D5W 250 ML IV 250 ML IV SCH ×2 (08:50→21:20)
[2019-07-15] MEDS: SINGULAIR TAB 10 MG PO SCH (08:51)
[2019-07-15] MEDS: PEPCID TAB 20 MG PO SCH (08:51)
[2019-07-15] MEDS: ASPIRIN EC 81 MG PO SCH (08:51)
[2019-07-15] MEDS: HEMOCYTE-PLUS PO SCH (08:51)
[2019-07-15] MEDS: PROTONIX TAB 40 MG PO SCH ×2 (08:51→21:19)
[2019-07-15] MEDS: COZAAR PO SCH (08:51)
[2019-07-15] MEDS: LASIX PO SCH (08:51)
[2019-07-15] MEDS: LOPRESSOR TAB 25 MG PO SCH ×2 (08:53→21:20)
[2019-07-15] MEDS: PLAVIX PO SCH (08:53)
[2019-07-15] MEDS: NEURONTIN CAP 100 MG PO SCH (13:28)
[2019-07-15 17:16] LABS: HEMOGLOBIN 7.8 g/dL (12.0-16.0)
[2019-07-15 17:35] LABS: HEMATOCRIT 23.9 % (36.0-47.0)
[2019-07-15] MEDS: COLACE CAP 100 MG PO SCH (21:19)
[2019-07-15] MEDS: NEURONTIN CAP 300 MG PO SCH (21:19)
[2019-07-15] MEDS: PRAVACHOL PO SCH (21:20)
[2019-07-16] MEDS: DUONEB 0.5 MG/3 MG (3 mL) NEB SCH ×4 (00:54→17:01)
[2019-07-16] MEDS: ULTRAM PO PRN (03:05)
[2019-07-16 05:41] LABS: BASOPHILS # (AUTO) 0.1 X10^3/uL (0.0-0.1); BASOPHILS % (AUTO) 0.6 % (0.2-1.0); EOSINOPHILS # (AUTO) 0.2 x10^3/uL (0.0-0.2); EOSINOPHILS % (AUTO) 1.8 % (0.9-2.9); HEMATOCRIT 22.3 % (36.0-47.0); LYMPHOCYTES # (AUTO) 1.7 X10^3/uL (1.3-2.9); LYMPHOCYTES % (AUTO) 18.7 % (21.0-51.0); MEAN CORPUSCULAR HEMOGLOBIN 30.5 pg (27.0-34.0); MEAN CORPUSCULAR HGB CONC 33.1 g/dL (33.0-35.0); MEAN CORPUSCULAR VOLUME 92.1 fL (80.0-100.0); MEAN PLATELET VOLUME 8.6 fL (7.4-11.0); MONOCYTES # (AUTO) 1.3 x10^3/uL (0.3-0.8); MONOCYTES % (AUTO) 14.4 % (0.0-13.0); NEUTROPHILS # (AUTO) 5.9 x10^3/uL (2.2-4.8); NEUTROPHILS % (AUTO) 64.5 % (42.0-75.0); PLATELET COUNT 324 X10^3/uL (150.0-450.0); RED BLOOD COUNT 2.42 X10^6/uL (3.5-5.4); RED CELL DISTRIBUTION WIDTH 15.4 % (11.6-16.5); WHITE BLOOD COUNT 9.2 X10^3/uL (3.6-10.0)
[2019-07-16 05:59] LABS: ALBUMIN 2.9 g/dL (3.4-5.0); COR CA(FOR HYPOALB) 8.9 mg/dL (8.5-10.1); CREATININE 1.3 mg/dL (0.55-1.02); TOTAL PROTEIN 5.9 g/dL (6.4-8.2)
[2019-07-16] MEDS: REQUIP PO SCH ×3 (06:01→21:38)
[2019-07-16] MEDS: APRESOLINE TAB 25 MG PO SCH ×3 (06:01→21:38)
[2019-07-16 06:20] LABS: HEMOGLOBIN 7.4 g/dL (12.0-16.0)
[2019-07-16 06:21] LABS: ANISOCYTOSIS SLIGHT; HYPOCHROMASIA SLIGHT; PLATELET MORPHOLOGY COMMENT NORMAL (NORMAL)
--- NOTE | 2019-07-16 09:01 | PCM.PROG ---
Progress Note - Progress Note for Day of Date of Exam: 07/15/19 - Subjective Subjective: IS BEING TREATED FOR SHORTNESS OF BREATH, E COLI UTI, MRSA IN RIGHT LEG WOUND, ANEMIA, AND GENERALIZED WEAKNESS. TODAY, SHE IS ALERT AND ORIENTED, LYING IN BED ON MORNING ROUNDS. SHE CONTINUES WITH COMPLAINTS OF WEAKNESS TODAY. SHE ALSO REPORTS SUPRAPUBIC PAIN. HER VITALS THIS MORNING ARE: 98.5-73-20-99%-134/60. LABS WERE OBTAINED. ABNORMAL LAB VALUES INCLUDE THE FOLLOWING: RBC 2.56, HGB 7.7, HCT 23.9, CHLORIDE 108, BUN 28, CREATININE 1.30, CALCIUM 7.9. STOOLS ARE POSITIVE FOR OCCULT BLOOD. BLOOD CULTURES ARE PENDING. SHE IS CURRENTLY RECEIVING IV DOXY, IV ROCEPHIN, RESPIRATORY TX, SUPPLEMENTAL OXYGEN, AND HOME MEDICATIONS WERE RESUMED. WE WILL CONTINUE WITH CURRENT PLAN OF CARE TODAY. WE WILL MONITOR H&H TODAY AND TRANSFUSE WITH PRBC IF HEMOGLOBIN FALLS BELOW 7. OTHERWISE, WE WILL FOLLOW UP WITH AM LABS AND 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. - Past Medical Family Social History Past Med/Fam/Surg Hx: No changes since H&P Allergies: Allergies levofloxacin [From Levaquin] Allergy (Verified 07/11/19 23:02) - Review of Systems ROS: No change since H&P - Vital Signs and I&O's Vital Signs: Temperature 98.7 F Pulse Rate [Left Brachial] 79 Pulse Rate [Right] 78 Pulse Rate 87 Respiratory Rate 18 Blood Pressure [Right Thigh] 188/76 Blood Pressure [Left Thigh] 172/68 Blood Pressure [Left Calf] 126/56 Blood Pressure [Left Arm] 140/44 Blood Pressure [Right Calf] 168/77 Blood Pressure [Right Arm] 111/51 Blood Pressure 165/67 O2 Sat by Pulse Oximetry 96 Intake and Output: Intake & Output 07/13/19 07/14/19 07/15/19 07/16/19 11:59 11:59 11:59 11:59 Intake Total 794 / 794 1710 / 1710 1450 / 1450 1979 Output Total 200 / 200 Balance 594 / 594 1710 / 1710 1450 / 1450 1979 - Physical Exam Oriented: Time, Person Eyes: Normal Ear: Normal Nose: Normal Throat: Normal Respiratory: Diminished, Wheezes Cardiovascular: Normal : Normal Auscultation: Bowel Sounds: Normal Palpation: Normal Tenderness: Normal, Suprapubic, Mild. negative: Rebound, Guarding, Rigidity Skin: Normal Musculoskeletal: Left, Knee, Leg, Tender Psychiatric: Normal Mood Description: Calm Affect: Normal Speech Pattern: Clear, Appropriate - Laboratory and Diagnostics Result Diagrams: 07/16/19 04:46 07/16/19 04:46 Labs: 07/11/19 17:54 Urine,Clean Catch Urine Culture - Final Escherichia Coli 07/12/19 10:42 Blood Blood Culture - Preliminary 07/12/19 10:35 Blood Blood Culture - Preliminary 07/11/19 21:40 Drainage Gram Stain - Final 07/11/19 21:40 Drainage Wound Culture - Final Methicillin Resis Staph Aureus Laboratory WBC 9.2 X10^3/uL (3.6-10.0) 07/16/19 04:46 RBC 2.42 X10^6/uL (3.5-5.4) L 07/16/19 04:46 Hgb 7.4 g/dL (12.0-16.0) L 07/16/19 04:46 Hct 22.3 % (36.0-47.0) L 07/16/19 04:46 MCV 92.1 fL (80.0-100.0) 07/16/19 04:46 MCH 30.5 pg (27.0-34.0) 07/16/19 04:46 MCHC 33.1 g/dL (33.0-35.0) 07/16/19 04:46 RDW 15.4 % (11.6-16.5) 07/16/19 04:46 Plt Count 324 X10^3/uL (150.0-450.0) 07/16/19 04:46 Plt Count Comment Adequate (ADEQUATE) 07/16/19 04:46 MPV 8.6 fL (7.4-11.0) 07/16/19 04:46 Neut % (Auto) 64.5 % (42.0-75.0) 07/16/19 04:46 Lymph % (Auto) 18.7 % (21.0-51.0) L 07/16/19 04:46 [place] % (Auto) 14.4 % (0.0-13.0) H 07/16/19 04:46 Eos % (Auto) 1.8 % (0.9-2.9) 07/16/19 04:46 Baso % (Auto) 0.6 % (0.2-1.0) 07/16/19 04:46 Neut # (Auto) 5.9 x10^3/uL (2.2-4.8) H 07/16/19 04:46 Lymph # (Auto) 1.7 X10^3/uL (1.3-2.9) 07/16/19 04:46 [place] # (Auto) 1.3 x10^3/uL (0.3-0.8) H 07/16/19 04:46 Eos # (Auto) 0.2 x10^3/uL (0.0-0.2) 07/16/19 04:46 Baso # (Auto) 0.1 X10^3/uL (0.0-0.1) 07/16/19 04:46 Absolute Nucleated RBC 0.0 /100WBC 07/16/19 04:46 Plt Morphology Comment Normal (NORMAL) 07/16/19 04:46 RBC Morphology Abnormal (NORMAL) A 07/16/19 04:46 Hypochromasia Slight A 07/16/19 04:46 Anisocytosis Slight A 07/16/19 04:46 Sodium 141 mmol/L (136-145) 07/16/19 04:46 Corrected Sodium 141 mmol/L (136-145) 07/16/19 04:46 Potassium 3.8 mmol/L (3.5-5.1) 07/16/19 04:46 Chloride 107 mmol/L (98-107) 07/16/19 04:46 Carbon Dioxide 24.0 mmol/L (21-32) 07/16/19 04:46 BUN 28 mg/dL (7-18) H 07/16/19 04:46 Creatinine 1.30 mg/dL (0.55-1.02) H 07/16/19 04:46 Est GFR (MDRD) Af Amer 50 (>60) L 07/16/19 04:46 Est GFR (MDRD) Non-Af 42 (>60) L 07/16/19 04:46 Glucose 119 mg/dL (65-99) H 07/16/19 04:46 Calcium 8.0 mg/dL (8.5-10.1) L 07/16/19 04:46 Corrected Calcium 8.9 mg/dL (8.5-10.1) 07/16/19 04:46 Magnesium 2.4 mg/dL (1.7-2.9) 07/11/19 21:11 Iron 26 ug/dL (50-175) L 07/12/19 05:00 Transferrin 261 mg/dL (202-364) 07/12/19 05:00 Ferritin 29 ng/mL (8-252) 07/12/19 05:00 Total Bilirubin 0.10 mg/dL (0.2-1.0) L 07/16/19 04:46 AST 14 Units/L (15-37) L 07/16/19 04:46 ALT 19 Units/L (12-78) 07/16/19 04:46 Alkaline Phosphatase 52 Units/L (46-116) 07/16/19 04:46 Creatine Kinase 64 Units/L (26-192) 07/12/19 05:00 CK-MB (CK-2) 1.2 ng/mL (0-4.0) 07/12/19 05:00 CK/CKMB % Calc 1.9 % (<4) 07/12/19 05:00 Troponin I < 0.02 ng/mL (0-1.5) 07/12/19 05:00 Total Protein 5.9 g/dL (6.4-8.2) L 07/16/19 04:46 Albumin 2.9 g/dL (3.4-5.0) L 07/16/19 04:46 Globulin 3.0 g/dL (2.5-4.5) 07/16/19 04:46 Albumin/Globulin Ratio 1.0 Ratio (1.1-2.1) L 07/16/19 04:46 Triglycerides 64 mg/dL (0-150) 07/12/19 05:00 Cholesterol 155 mg/dL (0-200) 07/12/19 05:00 LDL Cholesterol, Calc 75 mg/dL (0-100) 07/12/19 05:00 HDL Cholesterol 67 mg/dL (40-60) H 07/12/19 05:00 Cholesterol/HDL Ratio 2.3 (0.0-5.0) 07/12/19 05:00 Vitamin B12 498 pg/mL (193-986) 07/12/19 05:00 Folate > 20.0 ng/mL (>8.6) 07/12/19 05:00 Specimen Type Clean catch urine 07/12/19 05:50 Urine Color Yellow (YELLOW) 07/12/19 05:50 Urine Appearance Hazy (CLEAR) 07/12/19 05:50 Urine pH 6.0 (5.0 - 8.0) 07/12/19 05:50 Ur Specific [place] 1.015 (1.000-1.030) 07/12/19 05:50 Urine Protein 2+ (NEGATIVE) 07/12/19 05:50 Urine Glucose (UA) Negative (NEGATIVE) 07/12/19 05:50 Urine Ketones Negative (NEGATIVE) 07/12/19 05:50 Urine Occult Blood Negative (NEGATIVE) 07/12/19 05:50 Urine Nitrite Positive (NEGATIVE) 07/12/19 05:50 Urine Bilirubin Negative (NEGATIVE) 07/12/19 05:50 Urine Urobilinogen Normal (NORMAL) 07/12/19 05:50 Ur Leukocyte Esterase 2+ (NEGATIVE) 07/12/19 05:50 Urine RBC 0-2 /HPF (0-3) 07/12/19 05:50 Urine WBC 0-2 /HPF (0-5) 07/12/19 05:50 Ur Squamous Epith Cells Rare /HPF (NEGATIVE) 07/12/19 05:50 Amorphous Sediment 1+ /HPF (NEGATIVE) 07/11/19 17:54 Urine Bacteria Negative /HPF (NEGATIVE) 07/12/19 05:50 Urine Mucus Few /HPF (NEGATIVE) 07/12/19 05:50 Ur Culture Indicated? No/not indicated 07/12/19 05:50 Stool Description 75g,drk brown,formed 07/14/19 15:33 Stl Occult Blood (IFOB) Positive (NEGATIVE) A 07/14/19 15:33 Urine Opiates Screen Negative (NEG=<300) 07/11/19 17:54 Urine Methadone Screen Negative (NEG=<300) 07/11/19 17:54 Ur Barbiturates Screen Negative (NEG=<200) 07/11/19 17:54 Ur Phencyclidine Scrn Negative (NEG=<25) 07/11/19 17:54 Ur Amphetamines Screen Negative (NEG=<1000) 07/11/19 17:54 U Benzodiazepines Scrn Negative (NEG=<200) 07/11/19 17:54 Urine Cocaine Screen Negative (NEG=<300) 07/11/19 17:54 U Marijuana (THC) Screen Negative (NEG=<50) 07/11/19 17:54 - Plan (1) E. coli UTI Status: Acute Plan: IV FLUIDS, IV ROCEPHIN, IV DOXY, 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 (2) MRSA (methicillin resistant Staphylococcus aureus) infection Status: Acute Plan: IV FLUIDS, IV ROCEPHIN, IV DOXY, 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 (3) Anemia Status: Acute Qualifiers: Anemia type: unspecified type Qualified Code(s): D64.9 - Anemia, unspecified Plan: MONITOR H&H, TRANSFUSE 2 UNITS PRBC IF HGB FALLS BELOW 7, 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 (4) Dehydration, mild Status: Acute (5) COPD exacerbation Status: Acute Plan: RESPIRATORY TX, SUPPLEMENTAL OXYGEN
[2019-07-16] MEDS: ASPIRIN EC 81 MG PO SCH (09:24)
[2019-07-16] MEDS: PROTONIX TAB 40 MG PO SCH ×2 (09:24→20:35)
[2019-07-16] MEDS: PEPCID TAB 20 MG PO SCH (09:24)
[2019-07-16] MEDS: EFFEXOR TAB 75 MG (BID DOSING) PO SCH (09:26)
[2019-07-16] MEDS: HEMOCYTE-PLUS PO SCH (09:26)
[2019-07-16] MEDS: SINGULAIR TAB 10 MG PO SCH (09:27)
[2019-07-16] MEDS: COZAAR PO SCH (09:27)
[2019-07-16] MEDS: LASIX PO SCH (09:27)
[2019-07-16] MEDS: ROCEPHIN VIAL 1 GRAM 1 G in NS 100 ML IV + SPIKE MINIBAG* 100 ML IV SCH (09:28)
[2019-07-16] MEDS: LOPRESSOR TAB 25 MG PO SCH ×2 (09:28→20:36)
[2019-07-16] MEDS: VIBRAMYCIN 100 MG in D5W 250 ML IV 250 ML IV SCH ×2 (09:29→20:34)
[2019-07-16] MEDS: PLAVIX PO SCH (09:30)
[2019-07-16] MEDS ORDERED: BENADRYL INJ 50 MG VIAL IVP PRN (10:13)
[2019-07-16] MEDS ORDERED: NS 500 ML IV 500 ML IV ONE ×2 (10:13→23:00)
[2019-07-16] MEDS ORDERED: TYLENOL 325 MG TAB PO PRN (10:13)
--- NOTE | 2019-07-16 11:03 | PCM.PROG ---
Progress Note - Progress Note for Day of Date of Exam: 07/16/19 - Subjective Subjective: IS BEING TREATED FOR SHORTNESS OF BREATH, E COLI UTI, MRSA IN RIGHT LEG WOUND, ANEMIA, AND GENERALIZED WEAKNESS. TODAY, SHE IS ALERT AND ORIENTED, LYING IN BED ON MORNING ROUNDS. SHE CONTINUES WITH COMPLAINTS OF WEAKNESS TODAY. SHE ALSO REPORTS SUPRAPUBIC PAIN. HER VITALS THIS MORNING ARE: 98.7-78-18-96%-111/51. LABS WERE OBTAINED. ABNORMAL LAB VALUES INCLUDE THE FOLLOWING: RBC 2.42, HGB 7.4, HCT 22.3, BUN 28, CREATININE 1.30, GLUCOSE 119, CALCIUM 8.0, TOTAL BILI 0.10, AST 14, TOTAL PROTEIN 5.9, ALBUMIN 2.9. STOOLS ARE POSITIVE FOR OCCULT BLOOD. BLOOD CULTURES ARE PENDING. SHE IS CURRENTLY RECEIVING IV DOXY, IV ROCEPHIN, RESPIRATORY TX, SUPPLEMENTAL OXYGEN, AND HOME MEDICATIONS WERE RESUMED. TODAY, WE WILL TRANSFUSE TWO UNITS OF PRBC. WE WILL ADMINISTER LASIX 40 MG IV BEFORE TRANSFUSION AND AGAIN IN BETWEEN UNITS. OTHERWISE, WE WILL FOLLOW UP WITH AM LABS AND 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. - Past Medical Family Social History Past Med/Fam/Surg Hx: No changes since H&P Allergies: Allergies levofloxacin [From Levaquin] Allergy (Verified 07/11/19 23:02) - Review of Systems ROS: No change since H&P - Vital Signs and I&O's Vital Signs: Temperature 98.7 F Pulse Rate [Left Brachial] 79 Pulse Rate [Right] 78 Pulse Rate 87 Respiratory Rate 18 Blood Pressure [Right Thigh] 188/76 Blood Pressure [Left Thigh] 172/68 Blood Pressure [Left Calf] 126/56 Blood Pressure [Left Arm] 140/44 Blood Pressure [Right Calf] 168/77 Blood Pressure [Right Arm] 111/51 Blood Pressure 165/67 O2 Sat by Pulse Oximetry 96 Intake and Output: Intake & Output 07/13/19 07/14/19 07/15/19 07/16/19 11:59 11:59 11:59 11:59 Intake Total 794 / 794 1710 / 1710 1450 / 1450 1979 Output Total 200 / 200 Balance 594 / 594 1710 / 1710 1450 / 1450 1979 - Physical Exam Oriented: Time, Person Eyes: Normal Ear: Normal Nose: Normal Throat: Normal Respiratory: Diminished, Wheezes Cardiovascular: Normal : Normal Auscultation: Bowel Sounds: Normal Palpation: Normal Tenderness: Normal, Suprapubic, Mild. negative: Rebound, Guarding, Rigidity Skin: Normal Musculoskeletal: Left, Knee, Leg, Tender Psychiatric: Normal Mood Description: Calm Affect: Normal Speech Pattern: Clear, Appropriate - Laboratory and Diagnostics Result Diagrams: 07/16/19 04:46 07/16/19 04:46 Labs: 07/11/19 17:54 Urine,Clean Catch Urine Culture - Final Escherichia Coli 07/12/19 10:42 Blood Blood Culture - Preliminary 07/12/19 10:35 Blood Blood Culture - Preliminary 07/11/19 21:40 Drainage Gram Stain - Final 07/11/19 21:40 Drainage Wound Culture - Final Methicillin Resis Staph Aureus Laboratory WBC 9.2 X10^3/uL (3.6-10.0) 07/16/19 04:46 RBC 2.42 X10^6/uL (3.5-5.4) L 07/16/19 04:46 Hgb 7.4 g/dL (12.0-16.0) L 07/16/19 04:46 Hct 22.3 % (36.0-47.0) L 07/16/19 04:46 MCV 92.1 fL (80.0-100.0) 07/16/19 04:46 MCH 30.5 pg (27.0-34.0) 07/16/19 04:46 MCHC 33.1 g/dL (33.0-35.0) 07/16/19 04:46 RDW 15.4 % (11.6-16.5) 07/16/19 04:46 Plt Count 324 X10^3/uL (150.0-450.0) 07/16/19 04:46 Plt Count Comment Adequate (ADEQUATE) 07/16/19 04:46 MPV 8.6 fL (7.4-11.0) 07/16/19 04:46 Neut % (Auto) 64.5 % (42.0-75.0) 07/16/19 04:46 Lymph % (Auto) 18.7 % (21.0-51.0) L 07/16/19 04:46 [place] % (Auto) 14.4 % (0.0-13.0) H 07/16/19 04:46 Eos % (Auto) 1.8 % (0.9-2.9) 07/16/19 04:46 Baso % (Auto) 0.6 % (0.2-1.0) 07/16/19 04:46 Neut # (Auto) 5.9 x10^3/uL (2.2-4.8) H 07/16/19 04:46 Lymph # (Auto) 1.7 X10^3/uL (1.3-2.9) 07/16/19 04:46 [place] # (Auto) 1.3 x10^3/uL (0.3-0.8) H 07/16/19 04:46 Eos # (Auto) 0.2 x10^3/uL (0.0-0.2) 07/16/19 04:46 Baso # (Auto) 0.1 X10^3/uL (0.0-0.1) 07/16/19 04:46 Absolute Nucleated RBC 0.0 /100WBC 07/16/19 04:46 Plt Morphology Comment Normal (NORMAL) 07/16/19 04:46 RBC Morphology Abnormal (NORMAL) A 07/16/19 04:46 Hypochromasia Slight A 07/16/19 04:46 Anisocytosis Slight A 07/16/19 04:46 Sodium 141 mmol/L (136-145) 07/16/19 04:46 Corrected Sodium 141 mmol/L (136-145) 07/16/19 04:46 Potassium 3.8 mmol/L (3.5-5.1) 07/16/19 04:46 Chloride 107 mmol/L (98-107) 07/16/19 04:46 Carbon Dioxide 24.0 mmol/L (21-32) 07/16/19 04:46 BUN 28 mg/dL (7-18) H 07/16/19 04:46 Creatinine 1.30 mg/dL (0.55-1.02) H 07/16/19 04:46 Est GFR (MDRD) Af Amer 50 (>60) L 07/16/19 04:46 Est GFR (MDRD) Non-Af 42 (>60) L 07/16/19 04:46 Glucose 119 mg/dL (65-99) H 07/16/19 04:46 Calcium 8.0 mg/dL (8.5-10.1) L 07/16/19 04:46 Corrected Calcium 8.9 mg/dL (8.5-10.1) 07/16/19 04:46 Magnesium 2.4 mg/dL (1.7-2.9) 07/11/19 21:11 Iron 26 ug/dL (50-175) L 07/12/19 05:00 Transferrin 261 mg/dL (202-364) 07/12/19 05:00 Ferritin 29 ng/mL (8-252) 07/12/19 05:00 Total Bilirubin 0.10 mg/dL (0.2-1.0) L 07/16/19 04:46 AST 14 Units/L (15-37) L 07/16/19 04:46 ALT 19 Units/L (12-78) 07/16/19 04:46 Alkaline Phosphatase 52 Units/L (46-116) 07/16/19 04:46 Creatine Kinase 64 Units/L (26-192) 07/12/19 05:00 CK-MB (CK-2) 1.2 ng/mL (0-4.0) 07/12/19 05:00 CK/CKMB % Calc 1.9 % (<4) 07/12/19 05:00 Troponin I < 0.02 ng/mL (0-1.5) 07/12/19 05:00 Total Protein 5.9 g/dL (6.4-8.2) L 07/16/19 04:46 Albumin 2.9 g/dL (3.4-5.0) L 07/16/19 04:46 Globulin 3.0 g/dL (2.5-4.5) 07/16/19 04:46 Albumin/Globulin Ratio 1.0 Ratio (1.1-2.1) L 07/16/19 04:46 Triglycerides 64 mg/dL (0-150) 07/12/19 05:00 Cholesterol 155 mg/dL (0-200) 07/12/19 05:00 LDL Cholesterol, Calc 75 mg/dL (0-100) 07/12/19 05:00 HDL Cholesterol 67 mg/dL (40-60) H 07/12/19 05:00 Cholesterol/HDL Ratio 2.3 (0.0-5.0) 07/12/19 05:00 Vitamin B12 498 pg/mL (193-986) 07/12/19 05:00 Folate > 20.0 ng/mL (>8.6) 07/12/19 05:00 Specimen Type Clean catch urine 07/12/19 05:50 Urine Color Yellow (YELLOW) 07/12/19 05:50 Urine Appearance Hazy (CLEAR) 07/12/19 05:50 Urine pH 6.0 (5.0 - 8.0) 07/12/19 05:50 Ur Specific [place] 1.015 (1.000-1.030) 07/12/19 05:50 Urine Protein 2+ (NEGATIVE) 07/12/19 05:50 Urine Glucose (UA) Negative (NEGATIVE) 07/12/19 05:50 Urine Ketones Negative (NEGATIVE) 07/12/19 05:50 Urine Occult Blood Negative (NEGATIVE) 07/12/19 05:50 Urine Nitrite Positive (NEGATIVE) 07/12/19 05:50 Urine Bilirubin Negative (NEGATIVE) 07/12/19 05:50 Urine Urobilinogen Normal (NORMAL) 07/12/19 05:50 Ur Leukocyte Esterase 2+ (NEGATIVE) 07/12/19 05:50 Urine RBC 0-2 /HPF (0-3) 07/12/19 05:50 Urine WBC 0-2 /HPF (0-5) 07/12/19 05:50 Ur Squamous Epith Cells Rare /HPF (NEGATIVE) 07/12/19 05:50 Amorphous Sediment 1+ /HPF (NEGATIVE) 07/11/19 17:54 Urine Bacteria Negative /HPF (NEGATIVE) 07/12/19 05:50 Urine Mucus Few /HPF (NEGATIVE) 07/12/19 05:50 Ur Culture Indicated? No/not indicated 07/12/19 05:50 Stool Description 75g,drk brown,formed 07/14/19 15:33 Stl Occult Blood (IFOB) Positive (NEGATIVE) A 07/14/19 15:33 Urine Opiates Screen Negative (NEG=<300) 07/11/19 17:54 Urine Methadone Screen Negative (NEG=<300) 07/11/19 17:54 Ur Barbiturates Screen Negative (NEG=<200) 07/11/19 17:54 Ur Phencyclidine Scrn Negative (NEG=<25) 07/11/19 17:54 Ur Amphetamines Screen Negative (NEG=<1000) 07/11/19 17:54 U Benzodiazepines Scrn Negative (NEG=<200) 07/11/19 17:54 Urine Cocaine Screen Negative (NEG=<300) 07/11/19 17:54 U Marijuana (THC) Screen Negative (NEG=<50) 07/11/19 17:54 - Plan (1) E. coli UTI Status: Acute Plan: IV FLUIDS, IV ROCEPHIN, IV DOXY, 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 (2) MRSA (methicillin resistant Staphylococcus aureus) infection Status: Acute Plan: IV FLUIDS, IV ROCEPHIN, IV DOXY, 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 (3) Anemia Status: Acute Qualifiers: Anemia type: unspecified type Qualified Code(s): D64.9 - Anemia, unspecified Plan: TRANSFUSE 2 UNITS PRBC, MONITOR H&H (4) Dehydration, mild Status: Acute (5) COPD exacerbation Status: Acute Plan: RESPIRATORY TX, SUPPLEMENTAL OXYGEN
[2019-07-16] MEDS: LASIX IVP SCH ×2 (14:36→17:42)
[2019-07-16] MEDS: NEURONTIN CAP 100 MG PO SCH (14:39)
[2019-07-16] MEDS: COLACE CAP 100 MG PO SCH (20:35)
[2019-07-16] MEDS: PRAVACHOL PO SCH (20:36)
[2019-07-16] MEDS: NEURONTIN CAP 300 MG PO SCH (20:36)
[2019-07-17] MEDS: DUONEB 0.5 MG/3 MG (3 mL) NEB SCH ×2 (00:50→05:40)
[2019-07-17 03:13] LABS: BASOPHILS # (AUTO) 0.1 X10^3/uL (0.0-0.1); BASOPHILS % (AUTO) 0.9 % (0.2-1.0); EOSINOPHILS # (AUTO) 0.2 x10^3/uL (0.0-0.2); EOSINOPHILS % (AUTO) 2.3 % (0.9-2.9); HEMATOCRIT 32.3 % (36.0-47.0); LYMPHOCYTES # (AUTO) 1.5 X10^3/uL (1.3-2.9); LYMPHOCYTES % (AUTO) 14.3 % (21.0-51.0); MEAN CORPUSCULAR HEMOGLOBIN 30.1 pg (27.0-34.0); MEAN CORPUSCULAR HGB CONC 33.6 g/dL (33.0-35.0); MEAN CORPUSCULAR VOLUME 89.4 fL (80.0-100.0); MEAN PLATELET VOLUME 8.5 fL (7.4-11.0); MONOCYTES # (AUTO) 1.3 x10^3/uL (0.3-0.8); MONOCYTES % (AUTO) 12.5 % (0.0-13.0); NEUTROPHILS # (AUTO) 7.4 x10^3/uL (2.2-4.8); PLATELET COUNT 305 X10^3/uL (150.0-450.0); RED BLOOD COUNT 3.61 X10^6/uL (3.5-5.4); RED CELL DISTRIBUTION WIDTH 15.1 % (11.6-16.5); WHITE BLOOD COUNT 10.5 X10^3/uL (3.6-10.0)
[2019-07-17 03:15] LABS: HEMOGLOBIN 10.9 g/dL (12.0-16.0)
[2019-07-17 03:25] LABS: ALBUMIN 3.1 g/dL (3.4-5.0); CALCIUM 8.2 mg/dL (8.5-10.1); CARBON DIOXIDE 27.7 mmol/L (21-32); COR CA(FOR HYPOALB) 8.9 mg/dL (8.5-10.1); CREATININE 1.42 mg/dL (0.55-1.02); TOTAL PROTEIN 6.5 g/dL (6.4-8.2)
[2019-07-17] MEDS: ROCEPHIN VIAL 1 GRAM 1 G in NS 100 ML IV + SPIKE MINIBAG* 100 ML IV SCH (09:25)
[2019-07-17] MEDS: SINGULAIR TAB 10 MG PO SCH (09:28)
[2019-07-17] MEDS: EFFEXOR TAB 75 MG (BID DOSING) PO SCH (09:28)
[2019-07-17] MEDS: LASIX PO SCH (09:29)
[2019-07-17] MEDS: HEMOCYTE-PLUS PO SCH (09:29)
[2019-07-17] MEDS: ASPIRIN EC 81 MG PO SCH (09:29)
[2019-07-17] MEDS: PROTONIX TAB 40 MG PO SCH (09:30)
[2019-07-17] MEDS: PEPCID TAB 20 MG PO SCH (09:30)
[2019-07-17] MEDS: LOPRESSOR TAB 25 MG PO SCH (09:30)
[2019-07-17] MEDS: COZAAR PO SCH (09:30)
[2019-07-17] MEDS: PLAVIX PO SCH (09:31)
[2019-07-17] MEDS: VIBRAMYCIN 100 MG in D5W 250 ML IV 250 ML IV SCH (10:41)
[2019-07-17 12:05] VITALS: BP 136/61
== END 2019-07-17 12:05 | disposition hospice, home (50) | DRG 191 ==
LOC: MED/SURG 15:46 → ER 15:46 → MED/SURG 20:31
PROVIDERS: ADMIT Obstetrics & Gynecology Obstetrics; ATTEND Internal Medicine
DX: N30.01 Acute cystitis with hematuria; D50.8 Other iron deficiency anemias; J44.1 Chronic obstructive pulmonary disease with (acute) exacerbation; K21.9 Gastro-esophageal reflux disease without esophagitis; N17.8 Other acute kidney failure; R94.31 Abnormal electrocardiogram [ECG] [EKG]; B95.62 Methicillin resistant Staphylococcus aureus infection as the cause of diseases classified elsewhere; R51 Headache; R26.89 Other abnormalities of gait and mobility; I10 Essential (primary) hypertension; S81.801A Unspecified open wound, right lower leg, initial encounter; R06.02 Shortness of breath; R07.81 Pleurodynia; R41.82 Altered mental status, unspecified; E78.2 Mixed hyperlipidemia; B96.29 Other Escherichia coli [E. coli] as the cause of diseases classified elsewhere; I25.10 Atherosclerotic heart disease of native coronary artery without angina pectoris; R07.1 Chest pain on breathing; R53.1 Weakness
CPT/HCPCS: 36415; 36430; 70450; 71010; 71045; 80048; 80053; 80061; 80307; 81001; 82270; 82550; 82553; 82607; 82728; 82746; 83540; 83735; 84466; 84484; 85014; 85018; 85025; 86850; 86900; 86901; 86922; 87040; 87070; 87075; 87077; 87086; 87088; 87186; 87205; 93005; 94640; 94760; 96365; 97162; 97165; 99284; A4222; P9016; G0378; G0434; J0696; J1200; J1940; J2405; J2920; J3490; J7040; J7050; J7060; J7512; J7620

== ENCOUNTER 2019-07-29 21:37 | Observation (INO) ==
--- NOTE | 2019-07-29 22:14 | DR.SOBA ---
HPI Time Seen Time Seen by Provider: 07/29/19 21:51 Primary Care Physician Primary Care Physician: JEANINE HPI Comment HPI Comment: PATIENT IS 84YR OLD WHITE FEMALE IN ER FOR INCREASING SOB AND CHEST. WFEEL BAD AND CAME TO ER BECAUSE OF WORSENING OFHER SYMPTOMS AND IS FEELING BAD AND HAVE BEING FOR FEW DAYS. PCP WANTED DIRECT ADMIT HER TODAY FOR BRONCHOPNEUMONIA BUT SHE DECLINE. SHE HOWEVER CONTINUE TO FEEL BAD AND WEAK WITH INCREASING SOB. HERE FOR FURTHER EVALUATION. Complaints Chief Complaint Doctors Comments: INCREASING SOB, CHEST PAIN AND MALAISE FOR FEW DAYS. Chief Complaint:: PT C/O FEELING SOB AND FEELING BAD PT WAS SUPPOSE TO BE A DIRECT ADMIT BUT PT REFUSED Reviewed Nurses Notes Reviewed: Yes Source History Provided: Patient Mode of Arrival Mode of Arrival: EMS Timing Onset of Chief Complaint: 07/15/19 Duration Duration: Days Context Onset:: At Rest PE Risk Factors:: None History of:: COPD and CHF Currently on:: Inhaled Bronchodilators Prehospital Care:: None Modifying Factors Worsens:: Exertion and Lying Flat Improves:: Rest and Sitting Up Associated Signs and Symptoms Associated Signs and Symptoms: Wheeze, Cough and Chest Pain; denies Hemoptysis, Leg Swelling and Calf Pain If Chest Pain Quality: Sharp and Pleuritic Location: Left Upper Chest, Left Lower Chest and Substernal If Cough Cough: Productive and Clear PMH PMH Past Medical History: Yes Past Medical History: Anemia, Arthritis, Asthma, COPD, Coronary Artery Disease, Dyslipidemia, GERD, Hypertension and [place] Past Surgical History: Yes Surgical History: Angioplasty/Stents, Cholecystectomy, Hysterectomy, Tonsillectomy and Other Family History History of Family Medical Conditions: Yes Family Medical History: Diabetes Mellitus, Cancer, [place], Coronary Artery Disease, Sudden Cardiac and Hypertension Social History Type of Tobacco Use: Cigarettes Does any household member use tobacco: Yes Alcohol Use: None Do you use any recreational Drugs:: No Lives With: Family Lives Where: Home infectious screening In the last 2 months have you had wt loss of >10#?: NO Have you had fever, night sweats or hemotysis?: No Have you traveled outside the country in the last 6 months?: No Isolation: Standard ROS Review of Systems Constitutional: See HPI, Weakness and Fatigue; negative Fever Eyes: No Symptoms Reported and See HPI; negative Eye Pain and Blurred Vision ENTM: No Symptoms Reported and See HPI; negative Ear Pain, Nose Discharge, Nose Congestion and Throat Pain Respiratoy: No Symptoms Reported and See HPI Cardiovascular: No Symptoms Reported, See HPI and Chest Pain Gastrointestinal/Abdominal: See HPI and Nausea; negative Constipation, Diarrhea and Vomiting Genitourinary: No Symptoms Reported and See HPI; negative Dysuria, Frequency and Hematuria Neurological: See HPI, Headache, Weakness and Dizziness Musculoskeletal: See HPI and Muscle Pain Integumentary: No Symptoms Reported and See HPI Hematologic/Lymphatic: No Symptoms Reported, Easy Bleeding and Easy Bruising; negative Swollen Glands Endocrine: See HPI and Decreased Appetite; negative Increased Thirst and Increased Urine Psychiatric: No Symptoms Reported and See HPI All Other Systems: Reviewed and Negative PE Vital Signs Vitals: Temperature 97.9 F Pulse Rate 75 Respiratory Rate 20 Blood Pressure [Right Thigh] 188/76 Blood Pressure [Left Thigh] 172/68 Blood Pressure [Left Calf] 126/56 Blood Pressure [Left Arm] 136/61 Blood Pressure 112/49 O2 Sat by Pulse Oximetry 96 General Limitations: No Limitations General Appearance: Alert and In Distress Head Head Exam: Normal Inspection and Atraumatic Eyes Eye exam: Normal Appearance and PERRL; negative Scleral Icterus and Conjunctival Injection ENT ENT Exam: Normal Oropharynx, Normal External Ear Exam and TM's Normal Bilaterally Neck Neck Exam: Normal Inspection and Trachea Midline; negative Tenderness and Lymphadenopathy Chest Chest Inspection: Symmetric Chest Wall Rise; negative Tenderness Respiratory Respiratory Exam: negative Accessory Muscle Use, Chest Wall Tenderness and Resp iratory Distress Respiratory Exam: Bilateral: Rhonchi and Lower: Rhonchi Cardiovascular Cardiovascular Exam: Regular Rate, Normal Rhythm and +S3; negative Systolic Murmur and Diastolic Murmur Abdominal Exam Abdominal Exam: Normal Inspection, Normal Bowel Sounds and Soft; negative T enderness Extremities Extremities Exam: Normal Inspection Back Back Exam: Normal Inspection Neurologic Neurological Exam: Alert and Oriented X3; negative Motor Sensory Deficit Psychiatric Psychiatric Exam: Normal Affect and Normal Mood Skin Skin Exam: Dry MDM Differential Diagnosis Differential Diagnosis: Asthma, Bronchitis, CHF, COPD, Dysrhythmia, Hypon atremia, Mycardial Infarction, Pneumonia, Pneumothorax, Pulmonary embolism, Respiratory Insufficiency, Sinusitis and URI COURSE Treatment Treatment: SEE ORDERS. Consultation Consultation Comments: DISCUSSED PATIENT WITH DR. CLEANING. HE WILL ADMIT PATIENT. Education/Counseling Education/Counseling: Patient Educated On: Diagnosis ROR Labs Reviewed Laboratory Results Reviewed?: Yes Result Diagrams: 07/30/19 05:14 07/30/19 05:14 Laboratory: WBC 9.7 X10^3/uL (3.6-10.0) 07/29/19 22:08 RBC 3.18 X10^6/uL (3.5-5.4) L 07/29/19 22:08 Hgb 9.5 g/dL (12.0-16.0) L 07/29/19 22:08 Hct 28.4 % (36.0-47.0) L 07/29/19 22:08 MCV 89.5 fL (80.0-100.0) 07/29/19 22:08 MCH 30.0 pg (27.0-34.0) 07/29/19 22:08 MCHC 33.5 g/dL (33.0-35.0) 07/29/19 22:08 RDW 14.4 % (11.6-16.5) 07/29/19 22:08 Plt Count 311 X10^3/uL (150.0-450.0) 07/29/19 22:08 MPV 8.8 fL (7.4-11.0) 07/29/19 22:08 Neut % (Auto) 75.2 % (42.0-75.0) H 07/29/19 22:08 Lymph % (Auto) 12.3 % (21.0-51.0) L 07/29/19 22:08 [place] % (Auto) 10.5 % (0.0-13.0) 07/29/19 22:08 Eos % (Auto) 1.1 % (0.9-2.9) 07/29/19 22:08 Baso % (Auto) 0.9 % (0.2-1.0) 07/29/19 22:08 Neut # (Auto) 7.3 x10^3/uL (2.2-4.8) H 07/29/19 22:08 Lymph # (Auto) 1.2 X10^3/uL (1.3-2.9) L 07/29/19 22:08 [place] # (Auto) 1.0 x10^3/uL (0.3-0.8) H 07/29/19 22:08 Eos # (Auto) 0.1 x10^3/uL (0.0-0.2) 07/29/19 22:08 Baso # (Auto) 0.1 X10^3/uL (0.0-0.1) 07/29/19 22:08 Absolute Nucleated RBC 0.0 /100WBC 07/29/19 22:08 Sodium 137 mmol/L (136-145) 07/29/19 22:08 Corrected Sodium TNP 07/29/19 22:08 Potassium 4.7 mmol/L (3.5-5.1) 07/29/19 22:08 Chloride 102 mmol/L (98-107) 07/29/19 22:08 Carbon Dioxide 27.2 mmol/L (21-32) 07/29/19 22:08 BUN 28 mg/dL (7-18) H 07/29/19 22:08 Creatinine 1.58 mg/dL (0.55-1.02) H 07/29/19 22:08 Est GFR (MDRD) Af Amer 40 (>60) L 07/29/19 22:08 Est GFR (MDRD) Non-Af 33 (>60) L 07/29/19 22:08 Glucose 107 mg/dL (65-99) H 07/29/19 22:08 Lactic Acid 1.4 mmol/L (0.4-2.0) 07/29/19 22:08 Calcium 8.3 mg/dL (8.5-10.1) L 07/29/19 22:08 Corrected Calcium 9.2 mg/dL (8.5-10.1) 07/29/19 22:08 Total Bilirubin 0.20 mg/dL (0.2-1.0) 07/29/19 22:08 AST 14 Units/L (15-37) L 07/29/19 22:08 ALT 18 Units/L (12-78) 07/29/19 22:08 Alkaline Phosphatase 65 Units/L (46-116) 07/29/19 22:08 Creatine Kinase 30 Units/L (26-192) 07/29/19 22:08 CK-MB (CK-2) < 1.0 ng/mL (0-4.0) 07/29/19 22:08 CK/CKMB % Calc 3.3 % (<4) 07/29/19 22:08 Troponin I < 0.02 ng/mL (0-1.5) 07/29/19 22:08 Total Protein 6.2 g/dL (6.4-8.2) L 07/29/19 22:08 Albumin 2.9 g/dL (3.4-5.0) L 07/29/19 22:08 Globulin 3.3 g/dL (2.5-4.5) 07/29/19 22:08 Albumin/Globulin Ratio 0.9 Ratio (1.1-2.1) L 07/29/19 22:08 XRAY XRAY Interpreted by: Radiologist and Self XRAY Findings: REPORT NOTED AND DISCUSSED WITH PATIENT. EKG Rate: 71 Peculiar: Normal Rhythm: NSR Block: None Hypertrophy: None ST: Nonsp (POOR R-WAVE PROGRESSION.) Opioid Opioid Risk Tool Age (Michael box if 16-45): No History of Preadolescent Sexual Abuse: No Total: 0 Total Score Risk Category: Low Risk Copyright: [facility] predicting aberrant behaviors Diagnosis Discharge Problem: Bronchopneumonia, Weakness, Acute dehydration Chest pain Qualifiers: Chest pain type: intercostal pain Qualified Code(s): R07.82 - Intercostal pain Instructions Forms: Excuse From Work Patient Portal
[2019-07-29 22:20] LABS: BASOPHILS # (AUTO) 0.1 X10^3/uL (0.0-0.1); BASOPHILS % (AUTO) 0.9 % (0.2-1.0); EOSINOPHILS # (AUTO) 0.1 x10^3/uL (0.0-0.2); EOSINOPHILS % (AUTO) 1.1 % (0.9-2.9); HEMATOCRIT 28.4 % (36.0-47.0); HEMOGLOBIN 9.5 g/dL (12.0-16.0); LYMPHOCYTES # (AUTO) 1.2 X10^3/uL (1.3-2.9); LYMPHOCYTES % (AUTO) 12.3 % (21.0-51.0); MEAN CORPUSCULAR HGB CONC 33.5 g/dL (33.0-35.0); MEAN CORPUSCULAR VOLUME 89.5 fL (80.0-100.0); MEAN PLATELET VOLUME 8.8 fL (7.4-11.0); MONOCYTES % (AUTO) 10.5 % (0.0-13.0); NEUTROPHILS # (AUTO) 7.3 x10^3/uL (2.2-4.8); NEUTROPHILS % (AUTO) 75.2 % (42.0-75.0); PLATELET COUNT 311 X10^3/uL (150.0-450.0); RED BLOOD COUNT 3.18 X10^6/uL (3.5-5.4); RED CELL DISTRIBUTION WIDTH 14.4 % (11.6-16.5); WHITE BLOOD COUNT 9.7 X10^3/uL (3.6-10.0)
[2019-07-29 22:36] LABS: LACTIC ACID 1.4 mmol/L (0.4-2.0)
[2019-07-29 22:37] LABS: BLOOD UREA NITROGEN 28 mg/dL (7-18); CALCIUM 8.3 mg/dL (8.5-10.1); CARBON DIOXIDE 27.2 mmol/L (21-32); CHLORIDE 102 mmol/L (98-107); CREATININE 1.58 mg/dL (0.55-1.02); SODIUM 137 mmol/L (136-145); TROPONIN I < 0.02 ng/mL (0-1.5); eGFR NON BLACK RACES 33 (>60)
[2019-07-29 22:41] LABS: ALANINE AMINOTRANSFERASE 18 Units/L (12-78); ALBUMIN 2.9 g/dL (3.4-5.0); ALKALINE PHOSPHATASE 65 Units/L (46-116); ASPARTATE AMINO TRANSFERASE 14 Units/L (15-37); CKMB % 3.3 % (<4); COR CA(FOR HYPOALB) 9.2 mg/dL (8.5-10.1); CREATINE KINASE 30 Units/L (26-192); CREATINE KINASE MB < 1.0 ng/mL (0-4.0); TOTAL PROTEIN 6.2 g/dL (6.4-8.2)
[2019-07-30] MEDS ORDERED: VIBRAMYCIN 100 MG in NS 100 ML IV + SPIKE MINIBAG* 100 ML IV SCH (01:15)
[2019-07-30] MEDS ORDERED: TUSSIONEX PENNKINETIC SUSP PO PRN (01:15)
[2019-07-30] MEDS ORDERED: ROCEPHIN VIAL 1 GRAM 1 G in NS 100 ML IV + SPIKE MINIBAG* 100 ML IV SCH ×2 (01:15→21:00)
[2019-07-30] MEDS ORDERED: NS 1000 ML 1,000 ML ONE (01:20)
[2019-07-30 01:35] VITALS: BMI 27.5
[2019-07-30] MEDS ORDERED: SALINE 3% 15 ML NEB TX NEB ONE (01:40)
[2019-07-30] MEDS ORDERED: VIBRAMYCIN IV ONE (02:31)
[2019-07-30] MEDS ORDERED: ROCEPHIN VIAL 1 GRAM ONE (02:31)
[2019-07-30] MEDS ORDERED: NS 100 ML IV + SPIKE MINIBAG* 200 ML IV ONE (02:31)
[2019-07-30] MEDS: NS 1000 ML 1,000 ML IV SCH ×3 (02:32→21:58)
[2019-07-30 05:22] LABS: BILIRUBIN,URINE NEGATIVE (NEGATIVE); BLOOD/HEMOGLOBIN,URINE 2+ (NEGATIVE); GLUCOSE, URINE NEGATIVE (NEGATIVE); KETONES,URINE NEGATIVE (NEGATIVE); LEUKOCYTE ESTERASE ,URINE 3+ (NEGATIVE); NITRITES,URINE NEGATIVE (NEGATIVE); PROTEIN,URINE 2+ (NEGATIVE); UROBILINOGEN,URINE NORMAL (NORMAL)
[2019-07-30 05:32] LABS: AMORPHOUS SEDIMENT,UR 3+ /HPF (NEGATIVE); APPEARANCE,URINE SLIGHTLY HAZY (CLEAR); BACTERIA,URINE TRACE /HPF (NEGATIVE); COLOR,URINE YELLOW (YELLOW); SQUAMOUS EPITHELIAL CELL,UR FEW /HPF (NEGATIVE)
[2019-07-30 06:28] LABS: BASOPHILS # (AUTO) 0.1 X10^3/uL (0.0-0.1); BASOPHILS % (AUTO) 0.5 % (0.2-1.0); EOSINOPHILS # (AUTO) 0.3 x10^3/uL (0.0-0.2); EOSINOPHILS % (AUTO) 3.1 % (0.9-2.9); HEMATOCRIT 32.3 % (36.0-47.0); HEMOGLOBIN 10.6 g/dL (12.0-16.0); LYMPHOCYTES # (AUTO) 1.4 X10^3/uL (1.3-2.9); LYMPHOCYTES % (AUTO) 14.2 % (21.0-51.0); MEAN CORPUSCULAR HEMOGLOBIN 29.7 pg (27.0-34.0); MEAN CORPUSCULAR HGB CONC 32.9 g/dL (33.0-35.0); MEAN PLATELET VOLUME 9.3 fL (7.4-11.0); MONOCYTES # (AUTO) 1.3 x10^3/uL (0.3-0.8); MONOCYTES % (AUTO) 13.2 % (0.0-13.0); NEUTROPHILS # (AUTO) 6.7 x10^3/uL (2.2-4.8); PLATELET COUNT 349 X10^3/uL (150.0-450.0); RED BLOOD COUNT 3.59 X10^6/uL (3.5-5.4); RED CELL DISTRIBUTION WIDTH 14.2 % (11.6-16.5); WHITE BLOOD COUNT 9.7 X10^3/uL (3.6-10.0)
[2019-07-30 06:52] LABS: CKMB % 2.6 % (<4); CREATINE KINASE 39 Units/L (26-192); CREATINE KINASE MB < 1.0 ng/mL (0-4.0); TROPONIN I < 0.02 ng/mL (0-1.5)
[2019-07-30 07:04] LABS: ALBUMIN 3.1 g/dL (3.4-5.0); CALCIUM 8.3 mg/dL (8.5-10.1); CARBON DIOXIDE 24.9 mmol/L (21-32); CREATININE 1.49 mg/dL (0.55-1.02)
--- NOTE | 2019-07-30 08:42 | RAD ---
Chest AP portableIndication: Dyspnea and weaknessMarissa on July 11, 2019FINDINGSThere is no pneumothorax or effusion. There is no consolidation. Heart size is prominent. Clips project over the left axilla.IMPRESSIONProminent heart size and chronic lung changes without other acute chest process convincingly demonstrated.Electronically signed by: THONG HEBERT (Jul 30, 2019 05:15:47)
[2019-07-30] MEDS: PULMICORT NEB TX 0.5 MG NEB SCH ×2 (09:37→21:10)
[2019-07-30] MEDS: DUONEB 0.5 MG/3 MG (3 mL) NEB SCH ×4 (09:37→21:10)
[2019-07-30] MEDS: ROBITUSSIN DM PO SCH ×4 (09:42→21:50)
[2019-07-30] MEDS: VSL#3 PO SCH (09:43)
[2019-07-30] MEDS: PEPCID TAB 20 MG PO SCH ×2 (12:04→21:50)
[2019-07-30] MEDS: VIBRAMYCIN 100 MG in NS 100 ML IV + SPIKE MINIBAG* 100 ML IV SCH ×2 (12:04→21:51)
[2019-07-30] MEDS: COZAAR PO SCH (12:05)
[2019-07-30] MEDS: ARICEPT TAB 10 MG PO SCH (12:05)
[2019-07-30] MEDS: PLAVIX PO SCH (12:05)
[2019-07-30] MEDS: NAMENDA TAB 10 MG PO SCH ×2 (12:05→21:50)
[2019-07-30] MEDS: NEURONTIN CAP 100 MG PO SCH (12:05)
[2019-07-30] MEDS: APRESOLINE TAB 25 MG PO SCH ×3 (12:05→21:51)
[2019-07-30] MEDS: PROTONIX TAB 40 MG PO SCH ×2 (12:05→21:50)
[2019-07-30] MEDS: PRAVACHOL PO SCH (12:06)
[2019-07-30] MEDS: LOPRESSOR TAB 25 MG PO SCH ×2 (12:06→21:50)
[2019-07-30] MEDS: LOVENOX INJ 30 MG SYR SC SCH (12:10)
[2019-07-30] MEDS: REQUIP PO SCH ×2 (14:01→21:51)
[2019-07-30] MEDS: EFFEXOR XR 75 MG CAP PO SCH (14:02)
[2019-07-30] MEDS ORDERED: ZOFRAN INJ 4 MG VIAL IVP PRN (17:20)
[2019-07-30] MEDS ORDERED: ZOFRAN INJ 4 MG VIAL ONE (17:24)
--- NOTE | 2019-07-30 18:36 | DR.H&P ---
H&P - History & Physical for Day of: H&P Date: 07/30/19 - Chief Complaint Chief Complaint: COUGH, SOB, FATIGUE, WEAKNESS - History of Present Illness History of Present Illness: IS A 84 YEAR OLD PATIENT OF OURS WHO PRESENTED TO THE ER WITH COMPLAINTS OF SHORTNESS OF BREATH, CHEST PAIN, AND FATIGUE FOR THE PAST TWO WEEKS. SHE HAS BEEN TAKING AUGMENTIN 875/125MG PO BID, MUCINEX, AND BREATHING TREATMENTS FOR THE PAST 7 DAYS WITHOUT IMPROVEMENT IN SYMPTOMS. ON ARRIVAL, VITALS WERE 97.9-75-20-96%-112/49. LABS WERE OBTAINED. ABNORMAL LAB VALUES INCLUDE THE FOLLOWING: RBC 3.18, HGB 9.5, HCT 28.4, BUN 28, CREATININE 1.58, GLUCOSE 107, CALCIUM 8.3, AST 14, TOTAL PROTEIN 6.2, ALBUMIN 2.9. A URINALYSIS WAS OBTAINED. ABNORMAL LAB VALUES INCLUDE THE FOLLOWING: WBC 35, RBC 5-10, BACTERIA TRACE, LEUKOCYTES 3+. INFLUENZA NEGATIVE. BLOOD AND SPUTUM CULTURES ARE PENDING. A CHEST XRAY WAS OBTAINED AND REVEALED: Prominent heart size and chronic lung changes without other acute chest process convincingly demonstrated. EKG REVEALED: SINUS RHYTHM 71. SHE WAS GIVEN ROCEPHIN 1G IV X 1 ANSD DOXYCYCLINE 100MG IV X 1 DOSE. SHE WAS ADMITTED FOR FURTHER EVALUATION AND TREATMENT OF BRONCHOPNEUMONIA, CHEST PAIN, DEHYDRATION, AND WEAKNESS. WE STARTED HER ON ROCEPHIN 1G IV DAILY, DOXYCYCLINE 100MG IV Q12H, NS AT 75 ML/HR, RESPIRATORY TX, AND HOME MEDICATIONS WERE RESUMED. OTHERWISE, WE PLAN TO FOLLOW UP WITH AM LABS AND 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. - Past Medical History Past Medical History: [place], Coronary Artery Disease, Hypertension, Dyslipidemia, Anemia, COPD, Asthma, GERD, Arthritis Additional Medical History: Breast and uterine cancer - Past Surgical History Surgical History: Angioplasty/Stents, Cholecystectomy, Hysterectomy, Other, Tonsillectomy - Family History Family Medical History: Diabetes Mellitus, Cancer, [place], Coronary Artery Disease, Sudden Cardiac , Hypertension - Social History Does patient currently use any type of tobacco product: Yes Have you used tobacco products in the last 12 months: Yes Type of Tobacco Use: Cigarettes How many years tobacco product used: 20 Packs per day or dips/chews per day: 1 Does any household member use tobacco: Yes Alcohol Use: None Drug Use: None Prescription drug monitoring program results: PDMP was not reviewed - Medications [facility]: [facility] Allergy (Verified 07/11/19 23:02) CONTINUE taking the following medications amoxicillin-pot clavulanate 1 tab PO BID 07/30/19 [History] clopidogrel 75 mg PO DAILY 07/30/19 [History] donepezil 10 mg PO DAILY 07/30/19 [History] doxycycline hyclate 100 mg PO BID 07/30/19 [History] famotidine 40 mg PO BID 07/30/19 [History] gabapentin 100 mg PO DAILY 07/30/19 [History] hydralazine 100 mg PO TID 07/30/19 [History] losartan 50 mg PO DAILY 07/30/19 [History] memantine 10 mg PO BID 07/30/19 [History] metoprolol tartrate 25 mg PO BID 07/30/19 [History] pantoprazole 40 mg PO BID 07/30/19 [History] pravastatin 40 mg PO DAILY 07/30/19 [History] ropinirole 0.5 mg PO TID 07/30/19 [History] venlafaxine 75 mg PO DAILY 07/30/19 [History] - Review of Systems Constitutional: See HPI, Fever, Weakness Eyes: No Symptoms Reported ENT: No Symptoms Reported Respiratory: See HPI, Cough, Shortness of Breath, SOB with Excertion Cardiovascular: No Symptoms Reported Gastrointestinal: No Symptoms Reported Genitourinary: No Symptoms Reported Musculoskeletal: No Symptoms Reported Skin: No Symptoms Reported Neurological: Weakness - Physical Exam Vital Signs: Temperature 100.1 F Pulse Rate [Left] 81 Pulse Rate 89 Respiratory Rate 18 Blood Pressure [Right Thigh] 188/76 Blood Pressure [Left Thigh] 172/68 Blood Pressure [Left Calf] 126/56 Blood Pressure [Left Arm] 173/67 Blood Pressure 112/49 O2 Sat by Pulse Oximetry 98 Oriented: Normal Eyes: Normal Ear: Normal Nose: Normal Throat: Normal Respiratory: Diminished Throughout Cardiovascular: Normal. negative: S3, S4, Murmur : Normal Auscultation: Bowel Sounds: Normal Palpation: Normal Tenderness: Normal Skin: Decreased Turgur Musculoskeletal: Normal Psychiatric: Normal Mood Description: Calm Affect: Normal Speech Pattern: Clear - Assessment/Plan (1) Bronchopneumonia Status: Acute Plan: ADMIT, IV ROCEPHIN, IV DOXY, RESPIRATORY TX, SUPPLEMENTAL OXYGEN, 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 (2) Acute dehydration Status: Acute Plan: NORMAL SALINE AT 75ML/HR, 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 (3) Generalized weakness Status: Acute (4) Chest pain Qualifiers: Chest pain type: intercostal pain Qualified Code(s): R07.82 - Intercostal pain Status: Acute Plan: SERIAL CARDIAC ENZYMES AND EKGS, 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 - Allergies Allergies/Adverse Reactions: Allergies Allergy/AdvReac Type Severity Reaction Status Date / Time levofloxacin [From Levaquin] Allergy Verified 07/11/19 23:02
[2019-07-30] MEDS ORDERED: TYLENOL 325 MG TAB PO PRN (20:12)
[2019-07-31] MEDS ORDERED: LOPRESSOR INJ 5 MG AMP IVP ONE (04:44)
[2019-07-31] MEDS ORDERED: LOPRESSOR INJ 5 MG AMP ONE (04:45)
[2019-07-31] MEDS: APRESOLINE TAB 25 MG PO SCH ×3 (05:23→22:18)
[2019-07-31] MEDS: REQUIP PO SCH ×3 (05:24→22:17)
[2019-07-31 05:55] LABS: BASOPHILS # (AUTO) 0.1 X10^3/uL (0.0-0.1); BASOPHILS % (AUTO) 1.2 % (0.2-1.0); EOSINOPHILS # (AUTO) 0.2 x10^3/uL (0.0-0.2); HEMATOCRIT 27.5 % (36.0-47.0); HEMOGLOBIN 9.1 g/dL (12.0-16.0); LYMPHOCYTES # (AUTO) 1.3 X10^3/uL (1.3-2.9); LYMPHOCYTES % (AUTO) 16.9 % (21.0-51.0); MEAN CORPUSCULAR HEMOGLOBIN 29.7 pg (27.0-34.0); MEAN CORPUSCULAR HGB CONC 33.1 g/dL (33.0-35.0); MEAN CORPUSCULAR VOLUME 89.7 fL (80.0-100.0); MEAN PLATELET VOLUME 9.3 fL (7.4-11.0); MONOCYTES # (AUTO) 1.1 x10^3/uL (0.3-0.8); MONOCYTES % (AUTO) 14.4 % (0.0-13.0); NEUTROPHILS # (AUTO) 5.2 x10^3/uL (2.2-4.8); NEUTROPHILS % (AUTO) 65.5 % (42.0-75.0); PLATELET COUNT 297 X10^3/uL (150.0-450.0); RED BLOOD COUNT 3.07 X10^6/uL (3.5-5.4); RED CELL DISTRIBUTION WIDTH 14.3 % (11.6-16.5)
[2019-07-31 06:11] LABS: ALANINE AMINOTRANSFERASE 15 Units/L (12-78); ALBUMIN 2.4 g/dL (3.4-5.0); ALKALINE PHOSPHATASE 54 Units/L (46-116); ASPARTATE AMINO TRANSFERASE 15 Units/L (15-37); BLOOD UREA NITROGEN 19 mg/dL (7-18); CALCIUM 7.5 mg/dL (8.5-10.1); CARBON DIOXIDE 20.6 mmol/L (21-32); CHLORIDE 106 mmol/L (98-107); COR CA(FOR HYPOALB) 8.8 mg/dL (8.5-10.1); CREATININE 1.21 mg/dL (0.55-1.02); SODIUM 138 mmol/L (136-145); TOTAL PROTEIN 5.5 g/dL (6.4-8.2); eGFR NON BLACK RACES 45 (>60)
--- NOTE | 2019-07-31 06:23 | RAD ---
HISTORYShortness of breathSTUDYCHEST, 1 [id number]/2020FINDINGSThe heart is mildly enlarged. No congestive heart failure is noted. The aorta is Elly tattooed. The lungs are free of acute infiltrates. No pleural effusions are identified. Bony thorax is unremarkable.IMPRESSIONMild cardiomegaly without congestive heart failureLungs clearElectronically signed by: KELSI GARCIA (Jul 31, 2019 06:21:32)
[2019-07-31] MEDS: LOVENOX INJ 30 MG SYR SC SCH (08:55)
[2019-07-31] MEDS: VIBRAMYCIN 100 MG in NS 100 ML IV + SPIKE MINIBAG* 100 ML IV SCH (08:56)
[2019-07-31] MEDS: ARICEPT TAB 10 MG PO SCH (08:56)
[2019-07-31] MEDS: VSL#3 PO SCH (08:56)
[2019-07-31] MEDS: PRAVACHOL PO SCH (08:57)
[2019-07-31] MEDS: PLAVIX PO SCH (08:57)
[2019-07-31] MEDS: PEPCID TAB 20 MG PO SCH ×2 (08:58→22:18)
[2019-07-31] MEDS: NAMENDA TAB 10 MG PO SCH ×2 (08:58→22:18)
[2019-07-31] MEDS: PROTONIX TAB 40 MG PO SCH ×2 (08:58→22:17)
[2019-07-31] MEDS: COZAAR PO SCH (08:59)
[2019-07-31] MEDS: LOPRESSOR TAB 25 MG PO SCH ×2 (08:59→22:18)
[2019-07-31] MEDS: NEURONTIN CAP 100 MG PO SCH (08:59)
[2019-07-31] MEDS: ROBITUSSIN DM PO SCH ×4 (09:00→22:16)
[2019-07-31] MEDS: EFFEXOR XR 75 MG CAP PO SCH (09:02)
[2019-07-31] MEDS: DUONEB 0.5 MG/3 MG (3 mL) NEB SCH ×4 (10:03→20:40)
[2019-07-31] MEDS: PULMICORT NEB TX 0.5 MG NEB SCH ×2 (10:03→20:40)
[2019-07-31] MEDS: VIBRAMYCIN PO SCH ×2 (14:19→22:18)
[2019-07-31] MEDS ORDERED: BUTT CREAM (COMPOUND) TOP PRN (14:44)
[2019-07-31] MEDS ORDERED: NYSTATIN POWDER ONE (17:07)
[2019-07-31] MEDS: NYSTATIN POWDER TOP SCH ×2 (18:57→22:16)
--- NOTE | 2019-07-31 19:09 | PCM.PROG ---
Progress Note - Progress Note for Day of Date of Exam: 07/31/19 - Subjective Subjective: WAS ADMITTED FOR BRONCHOPNEUMONIA AND CHEST PAIN, RULE OUT ACUTE GA. TODAY, SHE IS ALERT AND ORIENTED, LYING IN BED ON MORNING ROUNDS. SHE CONTINUES WITH COMPLAINTS OF COUGH AND SHORTNESS OF BREATH, BUT REPORTS SLIGHT IMPROVEMENT IN SYMPTOMS SINCE YESTERDAY. ON EXAMINATION, HEART IS REGULAR IN RATE AND RHYTHM. BILATERAL LUNGS ARE NOTED WITH DIMINISHED LUNG SOUNDS THROUGHOUT. ABDOMEN IS ROUND, SOFT, AND NON-TENDER WITH NORMAL BOWEL SOUNDS NOTED IN ALL QUADRANTS. HER VITALS THIS MORNING ARE: 99.4-86-18-97%-127/61. LABS WERE OBTAINED. ABNORMAL LAB VALUES INCLUDE THE FOLLOWING: RBC 3.07, HGB 9.1, HCT 27.5, CARBON DIOXIDE 20.6, BUN 19, CREATININE 1.21, GLUCOSE 106, CALCIUM 7.5, T OTAL PROTEIN 5.5, ALBUMIN 2.4. CARDIAC ENZYMES WITHIN NORMAL LIMITS. BLOOD AND SPUTUM CULTURES ARE PENDING. SPUTUM CULTURE REPORTS MODERATE YEAST WITH NORMAL RAHCEL AT DAY 1. A CHEST XRAY WAS OBTAINED AND REVEALED: Mild cardiomegaly without congestive heart failure. Lungs clear. SHE IS CURRENTLY RECEIVING IF ROCEPHIN, IV DOXY, RESPIRATORY TX, AND SUPPLEMENTAL OXYGEN. TODAY, WE WILL DISCONTINUE IV FLUIDS AND CHANGE TO ORAL ANTIBIOTICS DUE TO THE DIFFICULTY OF MAINTAINING IV ACCESS. WE WILL ALSO ADD DIFLUCAN 100MG PO DAILY. OTHERWISE, WE PLAN TO FOLLOW UP WITH AM LABS AND 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. - Past Medical Family Social History Past Med/Fam/Surg Hx: No changes since H&P Allergies: Allergies levofloxacin [From Levaquin] Allergy (Verified 07/11/19 23:02) - Review of Systems ROS: No change since H&P - Vital Signs and I&O's Vital Signs: Temperature 98.4 F Pulse Rate [Left] 76 Pulse Rate 76 Respiratory Rate 22 Blood Pressure [Right Thigh] 188/76 Blood Pressure [Left Thigh] 172/68 Blood Pressure [Left Calf] 126/56 Blood Pressure [Left Arm] 144/64 Blood Pressure 112/49 O2 Sat by Pulse Oximetry 93 Intake and Output: Intake & Output 07/29/19 07/30/19 07/31/19 08/01/19 11:59 11:59 11:59 11:59 Intake Total 200 / 200 1810 / 1810 360 / 360 Balance 200 / 200 1810 / 1810 360 / 360 - Physical Exam Oriented: Normal Eyes: Normal Ear: Normal Nose: Normal Throat: Normal Respiratory: Generalized, Diminished Cardiovascular: Normal. negative: S3, S4, Murmur : Normal Auscultation: Bowel Sounds: Normal Palpation: Normal Tenderness: Normal Skin: Decreased Turgur Musculoskeletal: Normal Psychiatric: Normal Mood Description: Calm Affect: Normal Speech Pattern: Clear, Appropriate - Laboratory and Diagnostics Result Diagrams: 07/31/19 05:05 07/31/19 05:05 Labs: 07/30/19 02:17 Sputum - Expectorated Sputum Sputum Culture - Preliminary 07/30/19 02:17 Sputum - Expectorated Sputum - Final Laboratory WBC 8.0 X10^3/uL (3.6-10.0) 07/31/19 05:05 RBC 3.07 X10^6/uL (3.5-5.4) L 07/31/19 05:05 Hgb 9.1 g/dL (12.0-16.0) L 07/31/19 05:05 Hct 27.5 % (36.0-47.0) L 07/31/19 05:05 MCV 89.7 fL (80.0-100.0) 07/31/19 05:05 MCH 29.7 pg (27.0-34.0) 07/31/19 05:05 MCHC 33.1 g/dL (33.0-35.0) 07/31/19 05:05 RDW 14.3 % (11.6-16.5) 07/31/19 05:05 Plt Count 297 X10^3/uL (150.0-450.0) 07/31/19 05:05 MPV 9.3 fL (7.4-11.0) 07/31/19 05:05 Neut % (Auto) 65.5 % (42.0-75.0) 07/31/19 05:05 Lymph % (Auto) 16.9 % (21.0-51.0) L 07/31/19 05:05 [place] % (Auto) 14.4 % (0.0-13.0) H 07/31/19 05:05 Eos % (Auto) 2.0 % (0.9-2.9) 07/31/19 05:05 Baso % (Auto) 1.2 % (0.2-1.0) H 07/31/19 05:05 Neut # (Auto) 5.2 x10^3/uL (2.2-4.8) H 07/31/19 05:05 Lymph # (Auto) 1.3 X10^3/uL (1.3-2.9) 07/31/19 05:05 [place] # (Auto) 1.1 x10^3/uL (0.3-0.8) H 07/31/19 05:05 Eos # (Auto) 0.2 x10^3/uL (0.0-0.2) 07/31/19 05:05 Baso # (Auto) 0.1 X10^3/uL (0.0-0.1) 07/31/19 05:05 Absolute Nucleated RBC 0.1 /100WBC 07/31/19 05:05 Sodium 138 mmol/L (136-145) 07/31/19 05:05 Corrected Sodium TNP 07/31/19 05:05 Potassium 3.7 mmol/L (3.5-5.1) 07/31/19 05:05 Chloride 106 mmol/L (98-107) 07/31/19 05:05 Carbon Dioxide 20.6 mmol/L (21-32) L 07/31/19 05:05 BUN 19 mg/dL (7-18) H 07/31/19 05:05 Creatinine 1.21 mg/dL (0.55-1.02) H 07/31/19 05:05 Est GFR (MDRD) Af Amer 55 (>60) L 07/31/19 05:05 Est GFR (MDRD) Non-Af 45 (>60) L 07/31/19 05:05 Glucose 106 mg/dL (65-99) H 07/31/19 05:05 Lactic Acid 1.4 mmol/L (0.4-2.0) 07/29/19 22:08 Calcium 7.5 mg/dL (8.5-10.1) L 07/31/19 05:05 Corrected Calcium 8.8 mg/dL (8.5-10.1) 07/31/19 05:05 Total Bilirubin 0.20 mg/dL (0.2-1.0) 07/31/19 05:05 AST 15 Units/L (15-37) 07/31/19 05:05 ALT 15 Units/L (12-78) 07/31/19 05:05 Alkaline Phosphatase 54 Units/L (46-116) 07/31/19 05:05 Creatine Kinase 39 Units/L (26-192) 07/30/19 05:14 CK-MB (CK-2) < 1.0 ng/mL (0-4.0) 07/30/19 05:14 CK/CKMB % Calc 2.6 % (<4) 07/30/19 05:14 Troponin I < 0.02 ng/mL (0-1.5) 07/30/19 05:14 Total Protein 5.5 g/dL (6.4-8.2) L 07/31/19 05:05 Albumin 2.4 g/dL (3.4-5.0) L 07/31/19 05:05 Globulin 3.1 g/dL (2.5-4.5) 07/31/19 05:05 Albumin/Globulin Ratio 0.8 Ratio (1.1-2.1) L 07/31/19 05:05 Specimen Type Clean catch urine 07/30/19 05:07 Urine Color Yellow (YELLOW) 07/30/19 05:07 Urine Appearance Slightly hazy (CLEAR) 07/30/19 05:07 Urine pH 6.0 (5.0 - 8.0) 07/30/19 05:07 Ur Specific [place] 1.015 (1.000-1.030) 07/30/19 05:07 Urine Protein 2+ (NEGATIVE) 07/30/19 05:07 Urine Glucose (UA) Negative (NEGATIVE) 07/30/19 05:07 Urine Ketones Negative (NEGATIVE) 07/30/19 05:07 Urine Occult Blood 2+ (NEGATIVE) 07/30/19 05:07 Urine Nitrite Negative (NEGATIVE) 07/30/19 05:07 Urine Bilirubin Negative (NEGATIVE) 07/30/19 05:07 Urine Urobilinogen Normal (NORMAL) 07/30/19 05:07 Ur Leukocyte Esterase 3+ (NEGATIVE) 07/30/19 05:07 Urine RBC 5-10 /HPF (0-3) A 07/30/19 05:07 Urine WBC 3-5 /HPF (0-5) 07/30/19 05:07 Ur Squamous Epith Cells Few /HPF (NEGATIVE) 07/30/19 05:07 Amorphous Sediment 3+ /HPF (NEGATIVE) 07/30/19 05:07 Urine Bacteria Trace /HPF (NEGATIVE) 07/30/19 05:07 Ur Culture Indicated? No/not indicated 07/30/19 05:07 Influenza Type A (PCR) Negative (NEGATIVE) 07/30/19 12:03 Influenza Type B (PCR) Negative (NEGATIVE) 07/30/19 12:03 - Plan (1) Bronchopneumonia Status: Acute Plan: DOXYCYCLINE, DIFLUCAN, RESPIRATORY TX, SUPPLEMENTAL OXYGEN, 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 (2) Acute dehydration Status: Acute Plan: 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 (3) Generalized weakness Status: Acute (4) Chest pain Status: Resolved Qualifiers: Chest pain type: intercostal pain Qualified Code(s): R07.82 - Intercostal pain Plan: 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
[2019-07-31] MEDS: DIFLUCAN PO SCH (22:21)
[2019-08-01] MEDS: REQUIP PO SCH (05:36)
[2019-08-01] MEDS: APRESOLINE TAB 25 MG PO SCH (05:36)
[2019-08-01 06:05] LABS: ALANINE AMINOTRANSFERASE 15 Units/L (12-78); ALBUMIN 2.7 g/dL (3.4-5.0); ALKALINE PHOSPHATASE 60 Units/L (46-116); ASPARTATE AMINO TRANSFERASE 15 Units/L (15-37); BLOOD UREA NITROGEN 19 mg/dL (7-18); CALCIUM 8.2 mg/dL (8.5-10.1); CARBON DIOXIDE 25.5 mmol/L (21-32); CHLORIDE 107 mmol/L (98-107); COR CA(FOR HYPOALB) 9.2 mg/dL (8.5-10.1); COR NA(FOR HYPERGLY) 140 mmol/L (136-145); CREATININE 1.03 mg/dL (0.55-1.02); SODIUM 140 mmol/L (136-145); TOTAL PROTEIN 5.8 g/dL (6.4-8.2); eGFR NON BLACK RACES 55 (>60)
[2019-08-01 06:07] LABS: BASOPHILS # (AUTO) 0.1 X10^3/uL (0.0-0.1); BASOPHILS % (AUTO) 1.3 % (0.2-1.0); EOSINOPHILS # (AUTO) 0.1 x10^3/uL (0.0-0.2); EOSINOPHILS % (AUTO) 1.4 % (0.9-2.9); HEMATOCRIT 27.8 % (36.0-47.0); HEMOGLOBIN 9.3 g/dL (12.0-16.0); LYMPHOCYTES # (AUTO) 1.5 X10^3/uL (1.3-2.9); LYMPHOCYTES % (AUTO) 15.9 % (21.0-51.0); MEAN CORPUSCULAR HEMOGLOBIN 29.9 pg (27.0-34.0); MEAN CORPUSCULAR HGB CONC 33.4 g/dL (33.0-35.0); MEAN CORPUSCULAR VOLUME 89.6 fL (80.0-100.0); MEAN PLATELET VOLUME 9.1 fL (7.4-11.0); MONOCYTES # (AUTO) 1.1 x10^3/uL (0.3-0.8); MONOCYTES % (AUTO) 11.6 % (0.0-13.0); NEUTROPHILS # (AUTO) 6.4 x10^3/uL (2.2-4.8); NEUTROPHILS % (AUTO) 69.8 % (42.0-75.0); PLATELET COUNT 309 X10^3/uL (150.0-450.0); RED CELL DISTRIBUTION WIDTH 14.5 % (11.6-16.5); WHITE BLOOD COUNT 9.1 X10^3/uL (3.6-10.0)
--- NOTE | 2019-08-01 06:10 | RAD ---
HISTORYShortness of breathSTUDYCHEST, 1 [id number]/22/2020FINDINGSThe heart is enlarged. No congestive heart failure is noted. No acute alveolar infiltrates or pleural effusions are identified. Bony thorax is unremarkable.IMPRESSIONCardiomegaly without congestive heart failureNo acute infiltratesElectronically signed by: KELSI GARCIA (Aug 01, 2019 06:08:55)
[2019-08-01] MEDS: DUONEB 0.5 MG/3 MG (3 mL) NEB SCH (09:50)
[2019-08-01] MEDS: PULMICORT NEB TX 0.5 MG NEB SCH (09:50)
[2019-08-01] MEDS: LOVENOX INJ 30 MG SYR SC SCH (10:06)
[2019-08-01] MEDS: VSL#3 PO SCH (10:06)
[2019-08-01] MEDS: LOPRESSOR TAB 25 MG PO SCH (10:06)
[2019-08-01] MEDS: ARICEPT TAB 10 MG PO SCH (10:06)
[2019-08-01] MEDS: COZAAR PO SCH (10:06)
[2019-08-01] MEDS: NEURONTIN CAP 100 MG PO SCH (10:07)
[2019-08-01] MEDS: PEPCID TAB 20 MG PO SCH (10:07)
[2019-08-01] MEDS: PROTONIX TAB 40 MG PO SCH (10:08)
[2019-08-01] MEDS: DIFLUCAN PO SCH (10:08)
[2019-08-01] MEDS: PRAVACHOL PO SCH (10:08)
[2019-08-01] MEDS: NAMENDA TAB 10 MG PO SCH (10:08)
[2019-08-01] MEDS: PLAVIX PO SCH (10:08)
[2019-08-01] MEDS: NYSTATIN POWDER TOP SCH (10:11)
[2019-08-01] MEDS: ROBITUSSIN DM PO SCH (10:11)
[2019-08-01] MEDS: EFFEXOR XR 75 MG CAP PO SCH (10:23)
[2019-08-01] MEDS: VIBRAMYCIN PO SCH (10:23)
[2019-08-01 13:36] VITALS: BP 179/52
== END 2019-08-01 11:45 | disposition hospice, home (50) ==
LOC: ER 21:38 → MED/SURG 21:38
PROVIDERS: ADMIT Internal Medicine; ATTEND Internal Medicine
CPT/HCPCS: 36415; 71010; 71045; 80053; 81001; 82550; 82553; 83605; 84484; 85025; 87040; 87070; 87205; 87502; 93005; 94640; 94760; 96365; 97162; 97166; 97535; 99284; A4222; G0378; J0696; J1650; J2405; J3490; J7030; J7050; J7620; J7626

== ENCOUNTER 2021-08-16 13:58 | Inpatient (IN) ==
[2021-08-16] MEDS ORDERED: NS 1,000 ML IV 1,000 ML ONE (14:15)
[2021-08-16] MEDS ORDERED: NS 1,000 ML IV 1,000 ML IV ONE (14:20)
[2021-08-16 14:23] VITALS: BMI 24.7
[2021-08-16 15:08] LABS: BASOPHILS # (AUTO) 0.1 X10^3/uL (0.0-0.1); BASOPHILS % (AUTO) 1.5 % (0.2-1.0); EOSINOPHILS # (AUTO) 0.1 x10^3/uL (0.0-0.2); EOSINOPHILS % (AUTO) 1.3 % (0.9-2.9); HEMATOCRIT 29.9 % (36.0-47.0); HEMOGLOBIN 9.7 g/dL (12.0-16.0); LYMPHOCYTES # (AUTO) 1.1 X10^3/uL (1.3-2.9); LYMPHOCYTES % (AUTO) 19.4 % (21.0-51.0); MEAN CORPUSCULAR HEMOGLOBIN 28.4 pg (27.0-34.0); MEAN CORPUSCULAR HGB CONC 32.4 g/dL (33.0-35.0); MEAN CORPUSCULAR VOLUME 87.7 fL (80.0-100.0); MEAN PLATELET VOLUME 10.2 fL (7.4-11.0); MONOCYTES # (AUTO) 0.8 x10^3/uL (0.3-0.8); MONOCYTES % (AUTO) 13.8 % (0.0-13.0); NEUTROPHILS # (AUTO) 3.7 x10^3/uL (2.2-4.8); RED BLOOD COUNT 3.41 X10^6/uL (3.5-5.4); RED CELL DISTRIBUTION WIDTH 15.1 % (11.6-16.5); WHITE BLOOD COUNT 5.7 X10^3/uL (3.6-10.0)
[2021-08-16 15:16] LABS: ALANINE AMINOTRANSFERASE 12 Units/L (12-78); ALBUMIN 2.8 g/dL (3.4-5.0); ALKALINE PHOSPHATASE 58 Units/L (46-116); ASPARTATE AMINO TRANSFERASE 18 Units/L (15-37); BLOOD UREA NITROGEN 57 mg/dL (7-18); CALCIUM 8.4 mg/dL (8.5-10.1); CARBON DIOXIDE 20.1 mmol/L (21-32); CHLORIDE 111 mmol/L (98-107); COR CA(FOR HYPOALB) 9.4 mg/dL (8.5-10.1); CREATININE 3.42 mg/dL (0.55-1.02); SODIUM 139 mmol/L (136-145); TOTAL PROTEIN 6.8 g/dL (6.4-8.2); eGFR NON BLACK RACES 14 (>60)
--- NOTE | 2021-08-16 15:17 | RAD ---
HISTORYOP FLUIDS, DEHYDRATIONSTUDYCHEST, 1 [id number]/2020FINDINGSThe lungs are clear. No pneumothorax or significant effusion.Heart size is normal. Vascular calcifications are present compatible with atherosclerosis.Bones are unremarkable.Surgical clips are seen in the left axilla and chest wall.Surgical clips are present in the right upper abdomen, probably from a cholecystectomy.IMPRESSION1. No significant abnormalityElectronically signed by: Bobo Talbot (Aug 16, 2021 15:16:11)
[2021-08-16] MEDS ORDERED: TESSALON PERLES PO PRN (16:21)
[2021-08-16] MEDS ORDERED: ZOFRAN INJ 4 MG VIAL IVP PRN (16:29)
[2021-08-16] MEDS: DUONEB 0.5 MG/3 MG (3 mL) NEB SCH ×2 (16:37→21:17)
[2021-08-16] MEDS ORDERED: PEPCID 20 MG IV PREMIX* 20 MG/50 ML BAG IV SCH (17:00)
[2021-08-16] MEDS: ROCEPHIN VIAL 1 GRAM 1 G in NS 100 ML IV + SPIKE MINIBAG* 100 ML IV SCH (17:46)
[2021-08-16] MEDS: KAYEXALATE SUSP PO SCH ×2 (17:47→20:56)
[2021-08-16] MEDS: PEPCID 20 MG VIAL 20 MG in NS 50 ML IV 50 ML IV SCH (17:47)
[2021-08-16] MEDS: PRAVACHOL PO SCH (17:47)
[2021-08-16] MEDS: NS 1,000 ML IV 1,000 ML IV SCH (17:48)
[2021-08-16] MEDS: HEMOCYTE-PLUS PO SCH (17:48)
[2021-08-17] MEDS: NS 1,000 ML IV 1,000 ML IV SCH (02:51)
[2021-08-17] MEDS: DUONEB 0.5 MG/3 MG (3 mL) NEB SCH ×3 (05:55→20:10)
[2021-08-17 06:10] LABS: BASOPHILS # (AUTO) 0.1 X10^3/uL (0.0-0.1); BASOPHILS % (AUTO) 1.6 % (0.2-1.0); EOSINOPHILS # (AUTO) 0.1 x10^3/uL (0.0-0.2); EOSINOPHILS % (AUTO) 1.8 % (0.9-2.9); HEMATOCRIT 25.7 % (36.0-47.0); HEMOGLOBIN 8.4 g/dL (12.0-16.0); LYMPHOCYTES # (AUTO) 1.2 X10^3/uL (1.3-2.9); LYMPHOCYTES % (AUTO) 23.9 % (21.0-51.0); MEAN CORPUSCULAR HEMOGLOBIN 28.7 pg (27.0-34.0); MEAN CORPUSCULAR HGB CONC 32.7 g/dL (33.0-35.0); MEAN CORPUSCULAR VOLUME 87.6 fL (80.0-100.0); MEAN PLATELET VOLUME 10.2 fL (7.4-11.0); MONOCYTES # (AUTO) 0.7 x10^3/uL (0.3-0.8); MONOCYTES % (AUTO) 13.9 % (0.0-13.0); NEUTROPHILS # (AUTO) 3.1 x10^3/uL (2.2-4.8); NEUTROPHILS % (AUTO) 58.8 % (42.0-75.0); RED BLOOD COUNT 2.94 X10^6/uL (3.5-5.4); RED CELL DISTRIBUTION WIDTH 15.2 % (11.6-16.5); WHITE BLOOD COUNT 5.2 X10^3/uL (3.6-10.0)
[2021-08-17 06:36] LABS: ALANINE AMINOTRANSFERASE 9 Units/L (12-78); ALBUMIN 2.4 g/dL (3.4-5.0); ALKALINE PHOSPHATASE 47 Units/L (46-116); ASPARTATE AMINO TRANSFERASE 12 Units/L (15-37); BLOOD UREA NITROGEN 41 mg/dL (7-18); CALCIUM 7.5 mg/dL (8.5-10.1); COR CA(FOR HYPOALB) 8.8 mg/dL (8.5-10.1); CREATININE 2.32 mg/dL (0.55-1.02); SODIUM 144 mmol/L (136-145); TOTAL PROTEIN 5.8 g/dL (6.4-8.2); eGFR NON BLACK RACES 21 (>60)
[2021-08-17 06:44] LABS: CHLORIDE 115 mmol/L (98-107)
--- NOTE | 2021-08-17 08:58 | DR.H&P ---
H&P History & Physical for Day of: H&P Date: 08/17/21 Chief Complaint Chief Complaint: weakness, poor oral intake Ms Allergies Allergies Allergy/AdvReac Type Severity Reaction Status Date / Time levofloxacin [From Levaquin] Allergy Verified 07/11/19 23:02 History of Present Illness History of Present Illness: Ms Shane is a 86 y/o female with multiple comorbidities presented to the clinic with generalized weakness, cough, poor oral intake and diarrhea. She tested positive for covid on 07/26/21 and continues to feel weak. wilton weaver states she has not been eating much. She states she has no appetite and lays in bed all day. Patient was sent for outpatient labs, CXR and fluids. Her labs did show abnormalities so she was directly admitted for further management. Labs showed elevated potassium at 6.6 with increased BUN/Cr. CXR did not show any pneumonia or effusion. Labs/Imaging reviewing Plan: patient was admitted for generalized weakness, COPD exacerbation, hyperkalemia and ANNA. She was started on IV NS and received kayexalate. Will switch to LR at 75cc/hr, renal function and K improved. Continue IV Rocephin, nebs and pulmicort. Will add solumedrol. Follow UA, anemia panel and stool studies. Continue zofran prn. Continue full liquid diet, advance as tolerated. Resume home medications. PT/OT as tolerated. Monitor AM labs/imaging. Past Medical History Past Medical History: Anemia, Arthritis, Asthma, COPD, Coronary Artery Disease, Dyslipidemia, GERD, Hypertension and MT Additional Medical History: Breast and uterine cancer Past Surgical History Surgical History: Angioplasty/Stents, Cholecystectomy, Hysterectomy, Tonsillectomy and Other Family History Family Medical History: Diabetes Mellitus, Cancer, MT, Coronary Artery Disease, Sudden Cardiac and Hypertension Social History Does patient currently use any type of tobacco product: Yes Have you used tobacco products in the last 12 months: Yes Type of Tobacco Use: Cigarettes Does any household member use tobacco: Yes Alcohol Use: None Drug Use: None Prescription drug monitoring program results: PDMP reviewed and no concerns identified Medications Home Medications: levofloxacin [From Levaquin] Allergy (Verified 07/11/19 23:02) CONTINUE taking the following medications amiodarone 200 mg PO DAILY 08/16/21 [History] cyproheptadine 4 mg PO DIRECTED 08/16/21 [History] furosemide 20 mg PO DAILY 08/16/21 [History] iron-folic acid-mv, min cmb#15 [Hemocyte-Plus] 1 cap PO DAILY 08/16/21 [History] montelukast 10 mg PO DAILY 08/16/21 [History] valsartan 08/16/21 [History] valsartan 40 mg PO DAILY 08/16/21 [History] Labs Result Diagrams: 08/17/21 05:50 08/17/21 05:50 Labs: Laboratory WBC 5.2 X10^3/uL (3.6-10.0) 08/17/21 05:50 RBC 2.94 X10^6/uL (3.5-5.4) L 08/17/21 05:50 Hgb 8.4 g/dL (12.0-16.0) L 08/17/21 05:50 Hct 25.7 % (36.0-47.0) L 08/17/21 05:50 MCV 87.6 fL (80.0-100.0) 08/17/21 05:50 MCH 28.7 pg (27.0-34.0) 08/17/21 05:50 MCHC 32.7 g/dL (33.0-35.0) L 08/17/21 05:50 RDW 15.2 % (11.6-16.5) 08/17/21 05:50 Plt Count 192 X10^3/uL (150.0-450.0) 08/17/21 05:50 MPV 10.2 fL (7.4-11.0) 08/17/21 05:50 Neut % (Auto) 58.8 % (42.0-75.0) 08/17/21 05:50 Lymph % (Auto) 23.9 % (21.0-51.0) 08/17/21 05:50 [place] % (Auto) 13.9 % (0.0-13.0) H 08/17/21 05:50 Eos % (Auto) 1.8 % (0.9-2.9) 08/17/21 05:50 Baso % (Auto) 1.6 % (0.2-1.0) H 08/17/21 05:50 Neut # (Auto) 3.1 x10^3/uL (2.2-4.8) 08/17/21 05:50 Lymph # (Auto) 1.2 X10^3/uL (1.3-2.9) L 08/17/21 05:50 [place] # (Auto) 0.7 x10^3/uL (0.3-0.8) 08/17/21 05:50 Eos # (Auto) 0.1 x10^3/uL (0.0-0.2) 08/17/21 05:50 Baso # (Auto) 0.1 X10^3/uL (0.0-0.1) 08/17/21 05:50 Absolute Nucleated RBC 0.1 /100WBC 08/17/21 05:50 Sodium 144 mmol/L (136-145) 08/17/21 05:50 Corrected Sodium TNP 08/17/21 05:50 Potassium 4.8 mmol/L (3.5-5.1) 08/17/21 05:50 Chloride 115 mmol/L (98-107) H* 08/17/21 05:50 Carbon Dioxide 19.0 mmol/L (21-32) L 08/17/21 05:50 BUN 41 mg/dL (7-18) H 08/17/21 05:50 Creatinine 2.32 mg/dL (0.55-1.02) H 08/17/21 05:50 Est GFR (MDRD) Af Amer 26 (>60) L 08/17/21 05:50 Est GFR (MDRD) Non-Af 21 (>60) L 08/17/21 05:50 Glucose 98 mg/dL (65-99) 08/17/21 05:50 Calcium 7.5 mg/dL (8.5-10.1) L 08/17/21 05:50 Corrected Calcium 8.8 mg/dL (8.5-10.1) 08/17/21 05:50 Magnesium 2.8 mg/dL (1.7-2.9) 08/16/21 14:15 Total Bilirubin 0.10 mg/dL (0.2-1.0) L 08/17/21 05:50 AST 12 Units/L (15-37) L 08/17/21 05:50 ALT 9 Units/L (12-78) L 08/17/21 05:50 Alkaline Phosphatase 47 Units/L (46-116) 08/17/21 05:50 Total Protein 5.8 g/dL (6.4-8.2) L 08/17/21 05:50 Albumin 2.4 g/dL (3.4-5.0) L 08/17/21 05:50 Globulin 3.4 g/dL (2.5-4.5) 08/17/21 05:50 Albumin/Globulin Ratio 0.7 Ratio (1.1-2.1) L 08/17/21 05:50 Review of Systems Constitutional: Weakness and Malaise ENT: No Symptoms Reported Respiratory: Cough, SOB with Excertion, Sputum and Wheezing Cardiovascular: No Symptoms Reported Gastrointestinal: Nausea and Diarrhea Genitourinary: No Symptoms Reported Musculoskeletal: Back Pain Skin: No Symptoms Reported Neurological: Confusion Physical Exam Vital Signs: Temperature 98.9 F Pulse Rate [Right Radial] 65 Pulse Rate 71 Respiratory Rate 21 Blood Pressure [Right Thigh] 188/76 Blood Pressure [Left Thigh] 172/68 Blood Pressure [Left Calf] 126/56 Blood Pressure [Left Arm] 131/56 Blood Pressure [Right Calf] 168/77 Blood Pressure [Right Arm] 181/68 Blood Pressure 117/65 O2 Sat by Pulse Oximetry 92 Oriented: Normal Eyes: Normal Ear: Normal Nose: Normal Throat: Dry Respiratory: Rhonchi Throughout and Wheezes Throughout Cardiovascular: Normal Auscultation: Bowel Sounds: Normal Palpation: Normal Tenderness: Normal Skin: Decreased [place] Psychiatric: Normal Mood Description: Calm Affect: Normal Speech Pattern: Clear and Appropriate Assessment/Plan (1) Generalized weakness: Status: Acute (2) Acute dehydration: Status: Acute (3) ARF (acute renal failure): Qualifiers: Acute renal failure type: unspecified Qualified Code(s): N17.9 - Acute kidney failure, unspecified Status: Acute (4) COPD exacerbation: Status: Acute (5) Diarrhea: Qualifiers: Diarrhea type: unspecified type Qualified Code(s): R19.7 - Diarrhea, unspecified Status: Acute (6) Hyperkalemia: Status: Acute (7) Anemia: Qualifiers: Anemia type: iron deficiency Iron deficiency anemia type: unspecified iron deficiency Qualified Code(s): D50.9 - Iron deficiency anemia, unspecified Status: Chronic (8) CAD (coronary artery disease): Qualifiers: Associated angina: unspecified whether angina present Coronary Disease- Associated Artery/Lesion type: unspecified vessel or lesion type [place] vs. transplanted heart: [place] heart Qualified Code(s): I25.10 - Atherosclerotic heart disease of [place] coronary artery without angina pectoris Status: Acute Review H&P Reviewed: Yes Patient was examined?: Yes
[2021-08-17] MEDS ORDERED: LOPRESSOR TAB 25 MG PO SCH (09:00)
[2021-08-17 09:10] LABS: IRON 93 ug/dL (50-175)
[2021-08-17] MEDS: PEPCID 20 MG VIAL 20 MG in NS 50 ML IV 50 ML IV SCH (11:01)
[2021-08-17] MEDS: KAYEXALATE SUSP PO SCH ×2 (11:01→21:30)
[2021-08-17] MEDS: EFFEXOR XR 37.5 MG CAP 24-HR PO SCH (11:01)
[2021-08-17] MEDS: ROCEPHIN VIAL 1 GRAM 1 G in NS 100 ML IV + SPIKE MINIBAG* 100 ML IV SCH (11:01)
[2021-08-17] MEDS: LOPRESSOR TAB 25 MG PO SCH ×2 (11:02→20:54)
[2021-08-17] MEDS: HEMOCYTE-PLUS PO SCH (11:05)
[2021-08-17] MEDS: PRAVACHOL PO SCH (11:06)
[2021-08-17] MEDS: SOLU-Medrol 40 MG VIAL IVP SCH ×3 (11:06→21:30)
[2021-08-17] MEDS: PLAVIX PO SCH (11:07)
[2021-08-17] MEDS: CORDARONE TAB 200 MG PO SCH (11:07)
[2021-08-17] MEDS: PULMICORT NEB TX 0.5 MG NEB SCH ×2 (13:18→20:10)
[2021-08-17] MEDS: REQUIP PO SCH ×2 (14:35→21:30)
[2021-08-17] MEDS: LR 1,000 ML IV 1,000 ML IV SCH ×2 (14:35→23:34)
[2021-08-17 15:33] LABS: APPEARANCE,URINE CLEAR (CLEAR); BILIRUBIN,URINE NEGATIVE (NEGATIVE); BLOOD/HEMOGLOBIN,URINE NEGATIVE (NEGATIVE); COLOR,URINE YELLOW (YELLOW); GLUCOSE, URINE NEGATIVE (NEGATIVE); KETONES,URINE NEGATIVE (NEGATIVE); LEUKOCYTE ESTERASE ,URINE NEGATIVE (NEGATIVE); NITRITES,URINE NEGATIVE (NEGATIVE); PROTEIN,URINE 2+ (NEGATIVE); UROBILINOGEN,URINE NORMAL (NORMAL)
[2021-08-17 16:01] LABS: BACTERIA,URINE NEGATIVE /HPF (NEGATIVE); RBC,URINE 0-2 /HPF (0-3); SQUAMOUS EPITHELIAL CELL,UR RARE /HPF (NEGATIVE)
[2021-08-18] MEDS: DUONEB 0.5 MG/3 MG (3 mL) NEB SCH ×3 (05:00→20:10)
[2021-08-18] MEDS: LR 1,000 ML IV 1,000 ML IV SCH (05:02)
[2021-08-18] MEDS: SOLU-Medrol 40 MG VIAL IVP SCH ×3 (05:38→21:31)
[2021-08-18] MEDS: REQUIP PO SCH ×3 (05:38→21:30)
[2021-08-18 06:18] LABS: BASOPHILS % (AUTO) 0.6 % (0.2-1.0); HEMATOCRIT 24.9 % (36.0-47.0); HEMOGLOBIN 8.2 g/dL (12.0-16.0); LYMPHOCYTES # (AUTO) 0.7 X10^3/uL (1.3-2.9); MEAN CORPUSCULAR HEMOGLOBIN 28.6 pg (27.0-34.0); MEAN CORPUSCULAR VOLUME 86.6 fL (80.0-100.0); MEAN PLATELET VOLUME 10.5 fL (7.4-11.0); MONOCYTES # (AUTO) 0.1 x10^3/uL (0.3-0.8); MONOCYTES % (AUTO) 2.1 % (0.0-13.0); NEUTROPHILS # (AUTO) 5.3 x10^3/uL (2.2-4.8); NEUTROPHILS % (AUTO) 86.3 % (42.0-75.0); RED BLOOD COUNT 2.87 X10^6/uL (3.5-5.4); RED CELL DISTRIBUTION WIDTH 15.2 % (11.6-16.5); WHITE BLOOD COUNT 6.2 X10^3/uL (3.6-10.0)
[2021-08-18 06:38] LABS: ALBUMIN 2.8 g/dL (3.4-5.0); CALCIUM 8.2 mg/dL (8.5-10.1); CARBON DIOXIDE 20.4 mmol/L (21-32); COR CA(FOR HYPOALB) 9.2 mg/dL (8.5-10.1); CREATININE 1.53 mg/dL (0.55-1.02); TOTAL PROTEIN 6.3 g/dL (6.4-8.2)
[2021-08-18] MEDS ORDERED: ROBITUSSIN DM PO PRN (08:29)
[2021-08-18] MEDS: ROCEPHIN VIAL 1 GRAM 1 G in NS 100 ML IV + SPIKE MINIBAG* 100 ML IV SCH (08:39)
[2021-08-18] MEDS: NICOTINE PATCH TD SCH (08:41)
[2021-08-18] MEDS: PEPCID 20 MG VIAL 20 MG in NS 50 ML IV 50 ML IV SCH (08:41)
[2021-08-18] MEDS: EFFEXOR XR 37.5 MG CAP 24-HR PO SCH (08:42)
[2021-08-18] MEDS: PRAVACHOL PO SCH (08:42)
[2021-08-18] MEDS: CORDARONE TAB 200 MG PO SCH (08:44)
[2021-08-18] MEDS: PULMICORT NEB TX 0.5 MG NEB SCH ×2 (08:44→20:10)
[2021-08-18] MEDS: HEMOCYTE-PLUS PO SCH (08:44)
[2021-08-18] MEDS: PLAVIX PO SCH (08:44)
[2021-08-18] MEDS: LOPRESSOR TAB 25 MG PO SCH ×2 (08:46→21:32)
--- NOTE | 2021-08-18 09:24 | RAD ---
HISTORYCOUGH, WHEEZINGSTUDYCHEST x-ray, 1 VIEWCOMPARISONX-ray 08/16/2021FINDINGSPrior left breast surgery with reconstruction. This causes asymmetric density projected overlying left sweetie thorax. Heart is normal in size. Calcification is seen of the aortic arch. No hyperinflation or pneumonia is seen. No pneumothorax or pleural effusion is seen.IMPRESSIONNo acute cardiopulmonary abnormality is seen.Electronically signed by: Donnie Collins (Aug 18, 2021 09:23:50)
[2021-08-18] MEDS: PROTONIX TAB 40 MG PO SCH ×2 (10:16→21:32)
[2021-08-18] MEDS: D5W 1,000 ML IV 1,000 ML IV SCH ×2 (10:16→21:59)
[2021-08-18] MEDS: NAMENDA TAB 10 MG PO SCH ×2 (10:17→21:32)
[2021-08-18] MEDS: NEURONTIN CAP 100 MG PO SCH (10:17)
[2021-08-18] MEDS ORDERED: PERIACTIN TAB 4 MG PO SCH (11:30)
--- NOTE | 2021-08-18 13:03 | PCM.PROG ---
Progress Note Progress Note for Day of Date of Exam: 08/18/21 Subjective Subjective: Patient seen at bedside, no events overnight. She states she feels better this morning. She has been eating some of her meals. She has not had any diarrhea. Denies N/V or abdominal pain. She did not work with PT yesterday. She still has some cough and wheezing. Labs reviewed Plan: will order CXR, switch IVF ot D5 at 75cc/hr due to hypernatremia. Continue nebs, pulmicort and solumedrol. Continue Rocephin. Will resume remaining home medications. Continue to hold anti-hypertensives due to low BP. Advance diet to cardiac diet. PT/OT as tolerated. Ambulate with assistance TID. Monitor AM labs/imaging. Past Medical Family Social History Past Med/Fam/Surg Hx: No changes since H&P Allergies: Allergies levofloxacin [From Levaquin] Allergy (Verified 07/11/19 23:02) Review of Systems ROS: No change since H&P Vital Signs and I&O's Vital Signs: Temperature 98.2 F Pulse Rate [Right Radial] 75 Pulse Rate 101 Respiratory Rate 20 Blood Pressure [Right Thigh] 188/76 Blood Pressure [Left Thigh] 172/68 Blood Pressure [Left Calf] 126/56 Blood Pressure [Left Arm] 92/49 Blood Pressure [Right Calf] 168/77 Blood Pressure [Right Arm] 181/68 Blood Pressure 117/65 O2 Sat by Pulse Oximetry 95 Intake and Output: Intake & Output 08/15/21 08/16/21 08/17/21 08/18/21 23:59 23:59 23:59 23:59 Intake Total 440 / 440 4516 / 4516 873 / 873 Balance 440 / 440 4516 / 4516 873 / 873 Physical Exam Oriented: Normal Eyes: Normal Ear: Normal Nose: Normal Throat: Normal Respiratory: Generalized, Diminished and Wheezes Cardiovascular: Normal Auscultation: Bowel Sounds: Normal Tenderness: Normal Skin: Decreased [place] Psychiatric: Normal Mood Description: Calm Affect: Normal Speech Pattern: Clear and Appropriate Laboratory and Diagnostics Result Diagrams: 08/18/21 05:30 08/18/21 05:30 Labs: Laboratory WBC 6.2 X10^3/uL (3.6-10.0) 08/18/21 05:30 RBC 2.87 X10^6/uL (3.5-5.4) L 08/18/21 05:30 Hgb 8.2 g/dL (12.0-16.0) L 08/18/21 05:30 Hct 24.9 % (36.0-47.0) L 08/18/21 05:30 MCV 86.6 fL (80.0-100.0) 08/18/21 05:30 MCH 28.6 pg (27.0-34.0) 08/18/21 05:30 MCHC 33.0 g/dL (33.0-35.0) 08/18/21 05:30 RDW 15.2 % (11.6-16.5) 08/18/21 05:30 Plt Count 217 X10^3/uL (150.0-450.0) 08/18/21 05:30 MPV 10.5 fL (7.4-11.0) 08/18/21 05:30 Neut % (Auto) 86.3 % (42.0-75.0) H 08/18/21 05:30 Lymph % (Auto) 11.0 % (21.0-51.0) L 08/18/21 05:30 [place] % (Auto) 2.1 % (0.0-13.0) 08/18/21 05:30 Eos % (Auto) 0.0 % (0.9-2.9) L 08/18/21 05:30 Baso % (Auto) 0.6 % (0.2-1.0) 08/18/21 05:30 Neut # (Auto) 5.3 x10^3/uL (2.2-4.8) H 08/18/21 05:30 Lymph # (Auto) 0.7 X10^3/uL (1.3-2.9) L 08/18/21 05:30 [place] # (Auto) 0.1 x10^3/uL (0.3-0.8) L 08/18/21 05:30 Eos # (Auto) 0.0 x10^3/uL (0.0-0.2) 08/18/21 05:30 Baso # (Auto) 0.0 X10^3/uL (0.0-0.1) 08/18/21 05:30 Absolute Nucleated RBC 0.1 /100WBC 08/18/21 05:30 Sodium 153 mmol/L (136-145) H* 08/18/21 05:30 Corrected Sodium 155 mmol/L (136-145) H 08/18/21 05:30 Potassium 4.5 mmol/L (3.5-5.1) 08/18/21 05:30 Chloride 118 mmol/L (98-107) H* 08/18/21 05:30 Carbon Dioxide 20.4 mmol/L (21-32) L 08/18/21 05:30 BUN 21 mg/dL (7-18) H 08/18/21 05:30 Creatinine 1.53 mg/dL (0.55-1.02) H 08/18/21 05:30 Est GFR (MDRD) Af Amer 42 (>60) L 08/18/21 05:30 Est GFR (MDRD) Non-Af 34 (>60) L 08/18/21 05:30 Glucose 166 mg/dL (65-99) H 08/18/21 05:30 POC Glucose (mg/dL) 191 mg/dL (65-99) H 08/17/21 17:32 Calcium 8.2 mg/dL (8.5-10.1) L 08/18/21 05:30 Corrected Calcium 9.2 mg/dL (8.5-10.1) 08/18/21 05:30 Magnesium 2.8 mg/dL (1.7-2.9) 08/16/21 14:15 Iron 93 ug/dL (50-175) 08/17/21 05:55 Transferrin 161 mg/dL (202-364) L 08/17/21 05:55 Ferritin 47 ng/mL (8-252) 08/17/21 05:55 Total Bilirubin 0.10 mg/dL (0.2-1.0) L 08/18/21 05:30 AST 19 Units/L (15-37) 08/18/21 05:30 ALT 16 Units/L (12-78) 08/18/21 05:30 Alkaline Phosphatase 51 Units/L (46-116) 08/18/21 05:30 Total Protein 6.3 g/dL (6.4-8.2) L 08/18/21 05:30 Albumin 2.8 g/dL (3.4-5.0) L 08/18/21 05:30 Globulin 3.5 g/dL (2.5-4.5) 08/18/21 05:30 Albumin/Globulin Ratio 0.8 Ratio (1.1-2.1) L 08/18/21 05:30 Vitamin B12 981 pg/mL (193-986) 08/17/21 05:55 Folate > 20.0 ng/mL (>8.6) 08/17/21 05:55 Specimen Type Catherized urine 08/17/21 14:35 Urine Color Yellow (YELLOW) 08/17/21 14:35 Urine Appearance Clear (CLEAR) 08/17/21 14:35 Urine pH 5.0 (5.0 - 8.0) 08/17/21 14:35 Ur Specific [place] 1.015 (1.000-1.030) 08/17/21 14:35 Urine Protein 2+ (NEGATIVE) 08/17/21 14:35 Urine Glucose (UA) Negative (NEGATIVE) 08/17/21 14:35 Urine Ketones Negative (NEGATIVE) 08/17/21 14:35 Urine Occult Blood Negative (NEGATIVE) 08/17/21 14:35 Urine Nitrite Negative (NEGATIVE) 08/17/21 14:35 Urine Bilirubin Negative (NEGATIVE) 08/17/21 14:35 Urine Urobilinogen Normal (NORMAL) 08/17/21 14:35 Ur Leukocyte Esterase Negative (NEGATIVE) 08/17/21 14:35 Urine RBC 0-2 /HPF (0-3) 08/17/21 14:35 Urine WBC 0-2 /HPF (0-5) 08/17/21 14:35 Ur Squamous Epith Cells Rare /HPF (NEGATIVE) 08/17/21 14:35 Urine Bacteria Negative /HPF (NEGATIVE) 08/17/21 14:35 Ur Culture Indicated? No/not indicated 08/17/21 14:35 Plan (1) Hypernatremia: Status: Acute (2) Hyperchloremia: Status: Acute (3) Generalized weakness: Status: Resolved (4) Acute dehydration: Status: Resolved (5) ARF (acute renal failure): Status: Resolved Qualifiers: Acute renal failure type: unspecified Qualified Code(s): N17.9 - Acute kidney failure, unspecified (6) COPD exacerbation: Status: Resolved (7) Diarrhea: Status: Acute Qualifiers: Diarrhea type: unspecified type Qualified Code(s): R19.7 - Diarrhea, unspecified (8) Hyperkalemia: Status: Acute (9) Anemia: Status: Chronic Qualifiers: Anemia type: iron deficiency Iron deficiency anemia type: unspecified iron deficiency Qualified Code(s): D50.9 - Iron deficiency anemia, unspecified (10) CAD (coronary artery disease): Status: Acute Qualifiers: Associated angina: unspecified whether angina present Coronary Disease- Associated Artery/Lesion type: unspecified vessel or lesion type [place] vs. transplanted heart: [place] heart Qualified Code(s): I25.10 - Atherosclerotic heart disease of [place] coronary artery without angina pectoris
[2021-08-18] MEDS ORDERED: LOVENOX INJ 30 MG SYR SC SCH (21:00)
[2021-08-18] MEDS ORDERED: ARICEPT TAB 10 MG PO SCH (21:00)
[2021-08-18] MEDS ORDERED: SINGULAIR TAB 10 MG PO SCH (21:00)
[2021-08-18] MEDS: RESTORIL CAP 15 MG PO PRN ×2 (21:32)
[2021-08-19] MEDS: D5W 1,000 ML IV 1,000 ML IV SCH (01:10)
[2021-08-19] MEDS: DUONEB 0.5 MG/3 MG (3 mL) NEB SCH ×2 (05:00→13:30)
[2021-08-19] MEDS ORDERED: MORPHINE SULFATE INJ 2 MG INJ IVP PRN (05:35)
[2021-08-19] MEDS ORDERED: MORPHINE SULFATE INJ 2 MG INJ ONE (05:37)
[2021-08-19 05:43] LABS: BASOPHILS % (AUTO) 0.1 % (0.2-1.0); HEMATOCRIT 27.7 % (36.0-47.0); HEMOGLOBIN 8.9 g/dL (12.0-16.0); LYMPHOCYTES # (AUTO) 3.5 X10^3/uL (1.3-2.9); LYMPHOCYTES % (AUTO) 20.1 % (21.0-51.0); MEAN CORPUSCULAR HGB CONC 32.2 g/dL (33.0-35.0); MEAN CORPUSCULAR VOLUME 87.1 fL (80.0-100.0); MEAN PLATELET VOLUME 10.4 fL (7.4-11.0); MONOCYTES # (AUTO) 1.5 x10^3/uL (0.3-0.8); MONOCYTES % (AUTO) 8.7 % (0.0-13.0); NEUTROPHILS # (AUTO) 12.4 x10^3/uL (2.2-4.8); NEUTROPHILS % (AUTO) 71.1 % (42.0-75.0); RED BLOOD COUNT 3.18 X10^6/uL (3.5-5.4); RED CELL DISTRIBUTION WIDTH 15.7 % (11.6-16.5); WHITE BLOOD COUNT 17.4 X10^3/uL (3.6-10.0)
[2021-08-19] MEDS: SOLU-Medrol 40 MG VIAL IVP SCH ×2 (05:51→17:21)
[2021-08-19 05:55] LABS: ALBUMIN 2.9 g/dL (3.4-5.0); CALCIUM 7.9 mg/dL (8.5-10.1); CARBON DIOXIDE 20.9 mmol/L (21-32); COR CA(FOR HYPOALB) 8.8 mg/dL (8.5-10.1); CREATININE 1.51 mg/dL (0.55-1.02); TOTAL PROTEIN 6.4 g/dL (6.4-8.2)
--- NOTE | 2021-08-19 05:59 | RAD ---
HISTORYShortness of breathSTUDYChest AP [id number]/09/2022FINDINGSThe heart is within normal limits in size but has increased slightly in size when compared with the prior examination. The maría are indistinct and the interstitium is prominent suggestive of interval development of mild congestive heart failure or hypovolemia since the prior examination. No alveolar edema, alveolar infiltrates, areas of consolidation, or pleural effusions identified. Bony thorax is unremarkable.IMPRESSIONInterval development since the prior examination of mild congestive heart failure in the form of mild interstitial edemaElectronically signed by: KELSI GARCIA (Aug 19, 2021 05:58:48)
[2021-08-19 06:04] LABS: CKMB % 1.8 % (<4); CREATINE KINASE MB 2.9 ng/mL (0-4.0)
[2021-08-19] MEDS ORDERED: LASIX IVP ONE ×2 (06:16→06:35)
[2021-08-19] MEDS: REQUIP PO SCH ×2 (06:38→17:21)
[2021-08-19] MEDS ORDERED: ATIVAN INJ 2 MG VIAL ONE (07:27)
[2021-08-19] MEDS: ATIVAN INJ 2 MG VIAL IVP PRN ×2 (07:30→17:50)
[2021-08-19 08:49] LABS: BILIRUBIN,URINE NEGATIVE (NEGATIVE); BLOOD/HEMOGLOBIN,URINE 2+ (NEGATIVE); GLUCOSE, URINE NEGATIVE (NEGATIVE); KETONES,URINE NEGATIVE (NEGATIVE); LEUKOCYTE ESTERASE ,URINE NEGATIVE (NEGATIVE); NITRITES,URINE NEGATIVE (NEGATIVE); PROTEIN,URINE 3+ (NEGATIVE); UROBILINOGEN,URINE NORMAL (NORMAL)
[2021-08-19] MEDS ORDERED: EFFEXOR XR 37.5 MG CAP 24-HR PO SCH (09:00)
[2021-08-19] MEDS: NICOTINE PATCH TD SCH (09:15)
[2021-08-19] MEDS: PEPCID 20 MG VIAL 20 MG in NS 50 ML IV 50 ML IV SCH (09:15)
[2021-08-19 09:26] LABS: APPEARANCE,URINE SLIGHTLY HAZY (CLEAR); COLOR,URINE YELLOW (YELLOW)
[2021-08-19 09:27] LABS: BACTERIA,URINE TRACE /HPF (NEGATIVE); SQUAMOUS EPITHELIAL CELL,UR FEW /HPF (NEGATIVE)
[2021-08-19] MEDS: PULMICORT NEB TX 0.5 MG NEB SCH (09:45)
[2021-08-19] MEDS: ROCEPHIN VIAL 1 GRAM 1 G in NS 100 ML IV + SPIKE MINIBAG* 100 ML IV SCH (10:25)
[2021-08-19] MEDS: CORDARONE TAB 200 MG PO SCH (10:28)
[2021-08-19] MEDS: PROTONIX TAB 40 MG PO SCH (10:28)
[2021-08-19] MEDS: PRAVACHOL PO SCH (10:29)
[2021-08-19] MEDS: HEMOCYTE-PLUS PO SCH (10:29)
[2021-08-19] MEDS: PLAVIX PO SCH (10:29)
[2021-08-19] MEDS: NAMENDA TAB 10 MG PO SCH (10:30)
[2021-08-19] MEDS: LOPRESSOR TAB 25 MG PO SCH (10:30)
[2021-08-19] MEDS: NEURONTIN CAP 100 MG PO SCH (10:30)
[2021-08-19 12:27] LABS: CKMB % 4.1 % (<4)
[2021-08-19] MEDS ORDERED: HEPARIN SODIUM IN D5W 25,000 UNITS/500 ML BAG IV PRN (12:36)
[2021-08-19] MEDS ORDERED: HEPARIN SODIUM INJ 5000 UNITS IVP ONE (13:26)
[2021-08-19] MEDS ORDERED: HEPARIN SODIUM INJ 5000 UNITS ONE (13:30)
[2021-08-19 16:48] VITALS: BP 113/53
--- NOTE | 2021-08-19 19:07 | W.DIS.FURT ---
Summary of Discharge Discharge Summary of Date Date of Exam: 08/19/21 Admission Date Date of Admission: 08/16/21 Admission Diagnosis Hospital Course: Ms Shane is a 86 y/o female with multiple comorbidities presented to the clinic with generalized weakness, cough, poor oral intake and diarrhea. She tested positive for covid on 07/26/21 and continues to feel weak. 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 She states she has no appetite and lays in bed all day. Patient was sent for outpatient labs, CXR and fluids. Her labs did show abnormalities so she was directly admitted for further management. Labs showed elevated potassium at 6.6 with increased BUN/Cr. CXR did not show any pneumonia or effusion. Patient was admitted for generalized weakness, COPD exacerbation, hyperkalemia and ANNA. She was started on IV hydration and received kayexalate. She was also started on Rocephin, solumedrol, pulmicort and nebs. Patient was doing well and improving. She had an episode engraver copperplate where she had worsening dyspnea and chest pressure. She was placed on NRB and given IV morphine. Cardiac enzymes and EKG was done. Patient's initial trop was negative and no ST changes seen on EKG. Patient was weaned down to nasal canula. Second set of troponin was significantly elevated. Patient was started on heparin drip, no STEMI noted on EKG. Patient did not have any further episodes of chest pain. She does have a hx of CAD s/p PCI. Patient's treatment and plan was discussed with patient and her daughter in detail. It was discussed that patient will need to be transferred to higher level of care and possible cath. [facility] was contacted but no beds available. [facility] was also contacted with no beds available. [facility] accepted the patient. She was stable for transfer. All questions and concerns answered in detail. Time spent for clinical assessment, reviewing labs/imaging, physical exam, decison making, discussing with other physicians and documentation greater than 75 mins. Vital Signs: Vital Signs (72 hours) 08/16/21 20:00 08/16/21 21:17 08/17/21 00:00 Temperature 97.9 F 98.0 F Pulse Rate 71 Pulse Rate [Right Radial] 59 L 69 Respiratory Rate 18 20 Blood Pressure [Left Arm] 172/67 158/58 Blood Pressure [Right Arm] O2 Sat by Pulse Oximetry 93 L 91 L 90 L 08/17/21 04:00 08/17/21 08:00 08/17/21 12:00 Temperature 98.9 F 98.3 F 98.3 F Pulse Rate Pulse Rate [Right Radial] 65 84 88 Respiratory Rate 21 18 18 Blood Pressure [Left Arm] 131/56 172/68 132/58 Blood Pressure [Right Arm] O2 Sat by Pulse Oximetry 92 L 91 L 93 L 08/17/21 13:18 08/17/21 16:00 08/17/21 20:00 Temperature 98.3 F 97.9 F Pulse Rate 98 H Pulse Rate [Right Radial] 76 74 Respiratory Rate 20 20 Blood Pressure [Left Arm] 136/60 140/58 Blood Pressure [Right Arm] O2 Sat by Pulse Oximetry 98 93 L 92 L 08/17/21 20:10 08/18/21 00:00 08/18/21 04:00 Temperature 97.7 F 98.2 F Pulse Rate 75 Pulse Rate [Right Radial] 75 88 Respiratory Rate 20 18 Blood Pressure [Left Arm] 97/54 98/49 Blood Pressure [Right Arm] O2 Sat by Pulse Oximetry 95 90 L 93 L 08/18/21 08:00 08/18/21 08:44 08/18/21 11:54 Temperature 98.6 F 98.2 F Pulse Rate 101 H Pulse Rate [Right Radial] 106 H 75 Respiratory Rate 20 20 Blood Pressure [Left Arm] 96/53 92/49 Blood Pressure [Right Arm] O2 Sat by Pulse Oximetry 95 98 95 08/18/21 16:00 08/18/21 16:31 08/18/21 20:00 Temperature 98.2 F 98.1 F Pulse Rate Pulse Rate [Right Radial] 80 78 Respiratory Rate 20 20 Blood Pressure [Left Arm] 85/49 166/70 Blood Pressure [Right Arm] 90/53 O2 Sat by Pulse Oximetry 95 97 08/18/21 20:10 08/19/21 00:00 08/19/21 04:00 Temperature 98.6 F 98.6 F Pulse Rate 80 Pulse Rate [Right Radial] 70 70 Respiratory Rate 18 18 Blood Pressure [Left Arm] 171/72 171/72 Blood Pressure [Right Arm] O2 Sat by Pulse Oximetry 96 97 97 08/19/21 05:00 08/19/21 05:40 08/19/21 06:10 Temperature Pulse Rate 109 H Pulse Rate [Right Radial] Respiratory Rate 30 H 24 Blood Pressure [Left Arm] Blood Pressure [Right Arm] O2 Sat by Pulse Oximetry 96 08/19/21 08:00 08/19/21 09:45 08/19/21 12:00 Temperature 97.5 F L 97.1 F L Pulse Rate 71 Pulse Rate [Right Radial] 90 77 Respiratory Rate 20 20 Blood Pressure [Left Arm] Blood Pressure [Right Arm] 136/63 117/53 O2 Sat by Pulse Oximetry 100 100 97 08/19/21 13:30 08/19/21 16:00 Temperature 97.3 F L Pulse Rate 75 Pulse Rate [Right Radial] 79 Respiratory Rate 18 Blood Pressure [Left Arm] 113/53 Blood Pressure [Right Arm] O2 Sat by Pulse Oximetry 98 97 Labs: Laboratory Last Values WBC 17.4 X10^3/uL (3.6-10.0) H D 08/19/21 05:32 RBC 3.18 X10^6/uL (3.5-5.4) L 08/19/21 05:32 Hgb 8.9 g/dL (12.0-16.0) L 08/19/21 05:32 Hct 27.7 % (36.0-47.0) L 08/19/21 05:32 MCV 87.1 fL (80.0-100.0) 08/19/21 05:32 MCH 28.0 pg (27.0-34.0) 08/19/21 05:32 MCHC 32.2 g/dL (33.0-35.0) L 08/19/21 05:32 RDW 15.7 % (11.6-16.5) 08/19/21 05:32 Plt Count 314 X10^3/uL (150.0-450.0) 08/19/21 05:32 MPV 10.4 fL (7.4-11.0) 08/19/21 05:32 Neut % (Auto) 71.1 % (42.0-75.0) 08/19/21 05:32 Lymph % (Auto) 20.1 % (21.0-51.0) L 08/19/21 05:32 [place] % (Auto) 8.7 % (0.0-13.0) 08/19/21 05:32 Eos % (Auto) 0.0 % (0.9-2.9) L 08/19/21 05:32 Baso % (Auto) 0.1 % (0.2-1.0) L 08/19/21 05:32 Neut # (Auto) 12.4 x10^3/uL (2.2-4.8) H 08/19/21 05:32 Lymph # (Auto) 3.5 X10^3/uL (1.3-2.9) H 08/19/21 05:32 [place] # (Auto) 1.5 x10^3/uL (0.3-0.8) H 08/19/21 05:32 Eos # (Auto) 0.0 x10^3/uL (0.0-0.2) 08/19/21 05:32 Baso # (Auto) 0.0 X10^3/uL (0.0-0.1) 08/19/21 05:32 Absolute Nucleated RBC 0.0 /100WBC 08/19/21 05:32 PT 13.7 SECONDS (11.8-14.3) 08/19/21 13:25 INR Target Range - 08/19/21 13:25 INR 1.11 (0.8-1.3) 08/19/21 13:25 APTT 24.7 SECONDS (22.9-36.5) 08/19/21 13:25 PTT Comment - 08/19/21 13:25 Sodium 146 mmol/L (136-145) H 08/19/21 05:32 Corrected Sodium 148 mmol/L (136-145) H 08/19/21 05:32 Potassium 3.6 mmol/L (3.5-5.1) 08/19/21 05:32 Chloride 112 mmol/L (98-107) H 08/19/21 05:32 Carbon Dioxide 20.9 mmol/L (21-32) L 08/19/21 05:32 BUN 17 mg/dL (7-18) 08/19/21 05:32 Creatinine 1.51 mg/dL (0.55-1.02) H 08/19/21 05:32 Est GFR (MDRD) Af Amer 42 (>60) L 08/19/21 05:32 Est GFR (MDRD) Non-Af 35 (>60) L 08/19/21 05:32 Glucose 201 mg/dL (65-99) H 08/19/21 05:32 POC Glucose (mg/dL) 191 mg/dL (65-99) H 08/17/21 17:32 Hemoglobin A1c 6.0 % 08/18/21 05:30 Calcium 7.9 mg/dL (8.5-10.1) L 08/19/21 05:32 Corrected Calcium 8.8 mg/dL (8.5-10.1) 08/19/21 05:32 Magnesium 2.8 mg/dL (1.7-2.9) 08/16/21 14:15 Iron 93 ug/dL (50-175) 08/17/21 05:55 Transferrin 161 mg/dL (202-364) L 08/17/21 05:55 Ferritin 47 ng/mL (8-252) 08/17/21 05:55 Total Bilirubin 0.20 mg/dL (0.2-1.0) 08/19/21 05:32 AST 86 Units/L (15-37) H 08/19/21 05:32 ALT 56 Units/L (12-78) 08/19/21 05:32 Alkaline Phosphatase 68 Units/L (46-116) 08/19/21 05:32 Creatine Kinase 146 Units/L (26-192) 08/19/21 11:35 CK-MB (CK-2) 6.0 ng/mL (0-4.0) H* 08/19/21 11:35 CK/CKMB % Calc 4.1 % (<4) 08/19/21 11:35 Troponin I High Sens 1643.8 ng/L (4.0-60.0) H* 08/19/21 11:35 B-Natriuretic Peptide 2350 pg/mL (0-79) H* 08/19/21 05:32 Total Protein 6.4 g/dL (6.4-8.2) 08/19/21 05:32 Albumin 2.9 g/dL (3.4-5.0) L 08/19/21 05:32 Globulin 3.5 g/dL (2.5-4.5) 08/19/21 05:32 Albumin/Globulin Ratio 0.8 Ratio (1.1-2.1) L 08/19/21 05:32 Vitamin B12 981 pg/mL (193-986) 08/17/21 05:55 Folate > 20.0 ng/mL (>8.6) 08/17/21 05:55 Specimen Type Catherized urine 08/19/21 08:20 Urine Color Yellow (YELLOW) 08/19/21 08:20 Urine Appearance Slightly hazy (CLEAR) 08/19/21 08:20 Urine pH 6.0 (5.0 - 8.0) 08/19/21 08:20 Ur Specific [place] 1.015 (1.000-1.030) 08/19/21 08:20 Urine Protein 3+ (NEGATIVE) 08/19/21 08:20 Urine Glucose (UA) Negative (NEGATIVE) 08/19/21 08:20 Urine Ketones Negative (NEGATIVE) 08/19/21 08:20 Urine Occult Blood 2+ (NEGATIVE) 08/19/21 08:20 Urine Nitrite Negative (NEGATIVE) 08/19/21 08:20 Urine Bilirubin Negative (NEGATIVE) 08/19/21 08:20 Urine Urobilinogen Normal (NORMAL) 08/19/21 08:20 Ur Leukocyte Esterase Negative (NEGATIVE) 08/19/21 08:20 Urine RBC 3-5 /HPF (0-3) A 08/19/21 08:20 Urine WBC 0-2 /HPF (0-5) 08/19/21 08:20 Ur Squamous Epith Cells Few /HPF (NEGATIVE) 08/19/21 08:20 Amorphous Sediment Trace /HPF (NEGATIVE) 08/19/21 08:20 Urine Bacteria Trace /HPF (NEGATIVE) 08/19/21 08:20 Ur Culture Indicated? No/not indicated 08/19/21 08:20 Reason For Visit: HYPEROKLIMIA, DEHYDRATION, WEAKNESS Discharge Date Discharge Date: 08/19/21 Discharge Diagnosis All Active Problems (Updated 08/25/21 @ 15:21 by Priscilla Lowe) NSTEMI (non-ST elevated myocardial infarction) (Acute) Hyperchloremia (Acute) Hypernatremia (Acute) CAD (coronary artery disease) (Chronic) Hyperkalemia (Acute) Diarrhea (Acute) Anemia (Chronic) Depression (Chronic) Restless leg syndrome (Chronic) Congestive heart failure (Chronic) COPD (chronic obstructive pulmonary disease) with acute bronchitis (Chronic) Chronic kidney disease (Chronic) Plan of Treatment: Continue with present treatment and follow up plan. Pt is to keep follow up appointment as instructed and take medications as ordered. Discharge Medications Discharge Medications: levofloxacin [From Levaquin] Allergy (Verified 07/11/19 23:02) CONTINUE taking the following medications amiodarone 200 mg PO DAILY 08/16/21 [History] cyproheptadine 4 mg PO DIRECTED 08/16/21 [History] furosemide 20 mg PO DAILY 08/16/21 [History] iron-folic acid-mv, min cmb#15 [Hemocyte-Plus] 1 cap PO DAILY 08/16/21 [History] montelukast 10 mg PO DAILY 08/16/21 [History] valsartan 40 mg PO DAILY 08/16/21 [History] potassium chloride 20 meq PO DAILY 08/17/21 [History] donepezil [Aricept] 10 mg PO DAILY 08/18/21 [History] memantine [Namenda] 10 mg PO BID 08/18/21 [History] Discharge Disposition Discharge Disposition: [facility] Discharge Condition: Stable Discharge Plan Discharge Plan Hospital Course: Ms Shane is a 86 y/o female with multiple comorbidities presented to the clinic with generalized weakness, cough, poor oral intake and diarrhea. She tested positive for covid on 07/26/21 and continues to feel weak. 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 She states she has no appetite and lays in bed all day. Patient was sent for outpatient labs, CXR and fluids. Her labs did show abnormalities so she was directly admitted for further management. Labs showed elevated potassium at 6.6 with increased BUN/Cr. CXR did not show any pneumonia or effusion. Patient was admitted for generalized weakness, COPD exacerbation, hyperkalemia and ANNA. She was started on IV hydration and received kayexalate. She was also started on Rocephin, solumedrol, pulmicort and nebs. Patient was doing well and improving. She had an episode engraver copperplate where she had worsening dyspnea and chest pressure. She was placed on NRB and given IV morphine. Cardiac enzymes and EKG was done. Patient's initial trop was negative and no ST changes seen on EKG. Patient was weaned down to nasal canula. Second set of troponin was significantly elevated. Patient was started on heparin drip, no STEMI noted on EKG. Patient did not have any further episodes of chest pain. She does have a hx of CAD s/p PCI. Patient's treatment and plan was discussed with patient and her daughter in detail. It was discussed that patient will need to be transferred to higher level of care and possible cath. [facility] was contacted but no beds available. [facility] was also contacted with no beds available. [facility] accepted the patient. She was stable for transfer. All questions and concerns answered in detail. Time spent for clinical assessment, reviewing labs/imaging, physical exam, decison making, discussing with other physicians and documentation greater than 75 mins. Patient Disposition: [facility] XFER [facility] ACC[facility]OSP INP Condition: Stable Health Concerns: Post Hospitalization: new medications and changes needed to prevent readmission or further decline. Pt educated and given instructions on all concerns. Plan of Treatment: Continue with present treatment and follow up plan. Pt is to keep follow up appointment as instructed and take medications as ordered. Prescriptions: No Action metoprolol tartrate 25 mg tablet 25 mg PO BID RF: 0 donepezil 10 mg tablet 10 mg PO DAILY RF: 0 venlafaxine 75 mg tablet 75 mg PO DAILY RF: 0 pravastatin 40 mg tablet 40 mg PO HS RF: 0 famotidine 40 mg tablet 40 mg PO BID RF: 0 gabapentin 100 mg capsule 100 mg PO DAILY RF: 0 memantine 10 mg tablet 10 mg PO BID RF: 0 hydralazine 100 mg tablet 100 mg PO TID RF: 0 losartan 50 mg tablet 50 mg PO DAILY RF: 0 pantoprazole 40 mg tablet,delayed release (DR/EC) 40 mg PO BID RF: 0 clopidogrel 75 mg tablet 75 mg PO DAILY RF: 0 ropinirole 0.5 mg tablet 0.5 mg PO TID RF: 0 amiodarone 200 mg Tablet 200 mg PO DAILY RF: 0 cyproheptadine 4 mg Tablet 4 mg PO DIRECTED RF: 0 montelukast 10 mg tablet 10 mg PO DAILY RF: 0 furosemide 20 mg tablet 20 mg PO DAILY RF: 0 valsartan 40 mg tablet 40 mg PO DAILY RF: 0 Hemocyte-Plus 106 mg iron- 1 mg Capsule 1 cap PO DAILY RF: 0 potassium chloride 20 mEq Tablet Extended Release 20 meq PO DAILY RF: 0 donepezil [Aricept] 10 mg Tablet 10 mg PO DAILY RF: 0 memantine [Namenda] 10 mg Tablet 10 mg PO BID RF: 0 Orders to Discharge Patient Discharge Orders: Discharge by Transfer to Outside Facility (Routine); Ordered 08/19/21 Ordered By: Priscilla Lowe Follow ups/Referrals Follow ups/Referrals: Priscilla Lowe [Primary Care Provider] - 1 WEEK Instructions Stand Alone Forms: Excuse From Work or School, Precautions for COVID19, [facility], Patient Portal, Social Distancing
[2021-08-20] MEDS ORDERED: LASIX IVP SCH (09:00)
[2021-08-20] MEDS ORDERED: ROCEPHIN 1 GRAM IV PREMIX 1 G/50 ML IV.SOLN. IV SCH (09:00)
== END 2021-08-19 19:35 | disposition critical access hospital (66) | DRG 191 ==
LOC: LAB 13:58 → MED/SURG 16:08
PROVIDERS: ADMIT Internal Medicine; ATTEND Internal Medicine
DX: I25.10 Atherosclerotic heart disease of native coronary artery without angina pectoris; K21.9 Gastro-esophageal reflux disease without esophagitis; E86.0 Dehydration; E87.5 Hyperkalemia; E87.0 Hyperosmolality and hypernatremia; R53.1 Weakness; I10 Essential (primary) hypertension; N17.8 Other acute kidney failure; D50.8 Other iron deficiency anemias; Z86.16 Personal history of COVID-19; J44.1 Chronic obstructive pulmonary disease with (acute) exacerbation; R26.89 Other abnormalities of gait and mobility; R19.7 Diarrhea, unspecified

== ENCOUNTER 2021-09-10 20:01 | Observation (INO) ==
--- NOTE | 2021-09-10 21:36 | DR.AMS ---
HPI Time Seen Time Seen by Provider: 09/10/21 21:19 PCP Primary Care Physician: STELLA Complaint Cheif Complaint Doctors Comments: LETHARGY WITH DECREASED URINE OUTPUT AND MUSCLE TWITCHING WITH SOME ALTERED MENTAL STATUS . Chief Complaint:: ASKED PT WHY SHE CAME TO THE HOSPITAL, SHE STATES "I DON'T KNOW YOU'LL HAVE TO ASK MY DAUGHTER THAT". PT WEARING NC @ 2LPM UPON ARRIVAL. PT DAUGHTER STATES THAT PT HAS HAD DECREASED URINE OUTPUT, DECREASED FLUID INTAKE, AND MUSCLE TWITCHING. PT DAUGHTER STATES PT HAS TX X1 MONTH AGO AND WAS IN [facility] WHERE SHE DEVELOPED CHF AND STATES PT LAST KNOWN HGB 7.4. COVID-19 Coronavirus risk:travel/contact w/high risk person: No Has patient experienced Coronavirus symptoms: No Source History Provided: Patient, Family Member and EMS Mode of Arrival Mode of Arrival: EMS Timing Onset of Chief Complaint: 09/10/21 Symptom Onset: Unknown PMH PMH Past Medical History: Yes Past Medical History: Anemia, Arthritis, Asthma, CHF, COPD, Coronary Artery Disease, Dyslipidemia, GERD, Hypertension and [place] Past Medical History Comment: [place] 2017 AND 2021 Past Surgical History: Yes Surgical History: Angioplasty/Stents, Cholecystectomy, Hysterectomy, Tonsillectomy and Other Past Surgical History Comment: 2 CARDIAC STENTS IN 2018 Family History History of Family Medical Conditions: Yes Family Medical History: Diabetes Mellitus, Cancer, [place], Coronary Artery Disease, Sudden Cardiac and Hypertension Social History Type of Tobacco Use: Cigarettes Do you use any recreational Drugs:: No Lives With: Family Lives Where: Home Travel Risk Coronavirus risk:travel/contact w/high risk person: No Has patient experienced Coronavirus symptoms: No Infectious screening Have you traveled outside the country in the last 6 months?: No Isolation: Standard ROS Review of Systems Constitutional: Malaise, Weakness and Fatigue Eyes: No Symptoms Reported ENTM: No Symptoms Reported Respiratoy: No Symptoms Reported Cardiovascular: No Symptoms Reported Gastrointestinal/Abdominal: No Symptoms Reported Genitourinary: No Symptoms Reported Neurological: Depressed Musculoskeletal: No Symptoms Reported Integumentary: No Symptoms Reported Hematologic/Lymphatic: No Symptoms Reported Endocrine: No Symptoms Reported Psychiatric: No Symptoms Reported All Other Systems: Reviewed and Negative PE Vitals Vital Signs: Temp Pulse Resp BP BP BP BP 09/11/21 05:30 52 L 09/11/21 05:15 51 L 09/11/21 05:01 52 L 112/48 09/11/21 05:00 55 L 09/11/21 04:45 52 L 09/11/21 04:30 52 L 109/45 09/11/21 04:15 53 L 09/11/21 04:00 109/48 09/11/21 03:45 56 L 09/11/21 03:30 57 L 113/46 09/11/21 03:15 54 L 09/11/21 03:01 54 L 114/47 09/11/21 03:00 54 L 09/11/21 02:45 54 L 09/11/21 02:30 57 L 119/48 09/11/21 02:15 50 L 09/11/21 02:00 63 112/46 09/11/21 01:45 59 L 09/11/21 01:30 59 L 107/46 09/11/21 01:15 57 L 09/11/21 01:01 58 L 111/46 09/11/21 01:00 58 L 09/11/21 00:45 59 L 09/11/21 00:31 60 125/51 09/11/21 00:30 60 09/11/21 00:15 61 09/11/21 00:00 64 131/54 09/10/21 23:45 58 L 09/10/21 23:30 58 L 119/46 09/10/21 23:15 61 09/10/21 23:00 59 L 115/47 09/10/21 22:45 60 09/10/21 22:31 60 118/46 09/10/21 22:30 64 09/10/21 22:15 59 L 09/10/21 22:10 59 L 127/50 09/10/21 22:02 74 09/10/21 21:47 59 L 09/10/21 21:30 59 L 134/53 09/10/21 21:15 58 L 09/10/21 21:00 58 L 120/49 09/10/21 20:45 58 L 09/10/21 20:30 59 L 120/83 09/10/21 20:15 58 L 09/10/21 20:04 59 L 09/10/21 20:03 98.4 F 60 20 136/54 08/19/21 16:00 113/53 07/15/19 12:00 07/15/19 10:29 172/68 12/22/17 04:00 126/56 BP Pulse Ox 09/11/21 05:30 99 09/11/21 05:15 99 09/11/21 05:01 99 09/11/21 05:00 99 09/11/21 04:45 98 09/11/21 04:30 98 09/11/21 04:15 98 09/11/21 04:00 09/11/21 03:45 98 09/11/21 03:30 97 09/11/21 03:15 97 09/11/21 03:01 96 09/11/21 03:00 96 09/11/21 02:45 98 09/11/21 02:30 96 09/11/21 02:15 98 09/11/21 02:00 91 L 09/11/21 01:45 97 09/11/21 01:30 98 09/11/21 01:15 98 09/11/21 01:01 97 09/11/21 01:00 97 09/11/21 00:45 97 09/11/21 00:31 98 09/11/21 00:30 97 09/11/21 00:15 98 09/11/21 00:00 97 09/10/21 23:45 97 09/10/21 23:30 98 09/10/21 23:15 98 09/10/21 23:00 97 09/10/21 22:45 98 09/10/21 22:31 98 09/10/21 22:30 98 09/10/21 22:15 97 09/10/21 22:10 97 09/10/21 22:02 95 09/10/21 21:47 98 09/10/21 21:30 98 09/10/21 21:15 98 09/10/21 21:00 98 09/10/21 20:45 98 09/10/21 20:30 97 09/10/21 20:15 98 09/10/21 20:04 97 09/10/21 20:03 96 08/19/21 16:00 07/15/19 12:00 188/76 07/15/19 10:29 12/22/17 04:00 General Limitations: Language Barrier General Appearance: Lethargic and Cachectic Head Head Exam: Normal Inspection Eyes Eye exam: Normal Appearance ENT ENT Exam: Normal Exam External Ear Exam: Normal External Inspection Nose Exam: Normal Nose Exam Mouth Exam: Normal Inspection Throat Exam: Normal Inspection Neck Neck Exam: Normal Inspection Chest Chest Inspection: Normal Inspection Respiratory Respiratory Exam: Normal Lung Sounds Bilat Cardiovascular Cardiovascular Exam: Regular Rate and Normal Rhythm Abdominal Exam Abdominal Exam: Normal Inspection, Normal Bowel Sounds and Soft Extremities Extremities Exam: Normal Inspection Back Back Exam: Normal Inspection Neurological Neurological Exam: Alert and Oriented X3 Psychological Psychiatric Exam: Normal Affect and Normal Mood Skin Skin Exam: Warm, Dry, Intact and Normal Color MDM Additional Information Obtained Findings: DEHYDRATION,FATIGUE,UTI COURSE Treatment Treatment: PATIENT REMAINED RELATIVELY STABLE DURING ER EVALUATION. WAS FOUND TO HAVE SLIGHTLY ELEVATED CARDIAC ENZYMES OF 66.9 INITIALLY BUT EKG WAS SINUS RHYTHM. WAS FOUND TO HAVE UTI AND WAS GIVE ROCEPHINE ONE GRAM IV IN ER. AREPEAT SET OF CARDIAC ENZYMES WERE ORDERED AND THEY DECREASED TO 62.9. THIS PATIENT NEVER COMPLAINED OF CHEST PAIN JUST FATIGUE AND CHANGE IN MENTAL STATUS. CT OF BRAIN DID NOT SHOW ACUTE BLEED OR MASS.THE CHEST XRAY SHOWED NO ABNORMAL INTRTHORACIC FINDINGS. SPOKE TO DR VELOZ AT 0517 AND HE ACCEPTED THE PATIENT TO OBSETVATION FOR ELEVATED CARDIAC ENZYMES,UTI,CHANGE IN MENTAL STATUS AND SLIGHT DEHYDRATION AND MILD CHF. ROR Labs Reviewed Laboratory Results Reviewed?: Yes (HGB WAS 7.0 AND HCT WAS 21.3(THIS ID CLOSE TO WHERE PATIENT NORMALLY RESIDE) Result Diagrams: 09/10/21 21:45 09/10/21 21:45 Laboratory: WBC 3.7 X10^3/uL (3.6-10.0) 09/10/21 21:45 RBC 2.47 X10^6/uL (3.5-5.4) L 09/10/21 21:45 Hgb 7.0 g/dL (12.0-16.0) L 09/10/21 21:45 Hct 21.3 % (36.0-47.0) L 09/10/21 21:45 MCV 86.2 fL (80.0-100.0) 09/10/21 21:45 MCH 28.2 pg (27.0-34.0) 09/10/21 21:45 MCHC 32.8 g/dL (33.0-35.0) L 09/10/21 21:45 RDW 17.3 % (11.6-16.5) H 09/10/21 21:45 Plt Count 278 X10^3/uL (150.0-450.0) 09/10/21 21:45 MPV 9.1 fL (7.4-11.0) 09/10/21 21:45 Neut % (Auto) 50.7 % (42.0-75.0) 09/10/21 21:45 Lymph % (Auto) 28.5 % (21.0-51.0) 09/10/21 21:45 [place] % (Auto) 14.7 % (0.0-13.0) H 09/10/21 21:45 Eos % (Auto) 5.3 % (0.9-2.9) H 09/10/21 21:45 Baso % (Auto) 0.8 % (0.2-1.0) 09/10/21 21:45 Neut # (Auto) 1.9 x10^3/uL (2.2-4.8) L 09/10/21 21:45 Lymph # (Auto) 1.1 X10^3/uL (1.3-2.9) L 09/10/21 21:45 [place] # (Auto) 0.5 x10^3/uL (0.3-0.8) 09/10/21 21:45 Eos # (Auto) 0.2 x10^3/uL (0.0-0.2) 09/10/21 21:45 Baso # (Auto) 0.0 X10^3/uL (0.0-0.1) 09/10/21 21:45 Absolute Nucleated RBC 0.1 /100WBC 09/10/21 21:45 Sodium 142 mmol/L (136-145) 09/10/21 21:45 Corrected Sodium TNP 09/10/21 21:45 Potassium 4.5 mmol/L (3.5-5.1) 09/10/21 21:45 Chloride 107 mmol/L (98-107) 09/10/21 21:45 Carbon Dioxide 30.9 mmol/L (21-32) 09/10/21 21:45 BUN 20 mg/dL (7-18) H 09/10/21 21:45 Creatinine 1.50 mg/dL (0.55-1.02) H 09/10/21 21:45 Est GFR (MDRD) Af Amer 43 (>60) L 09/10/21 21:45 Est GFR (MDRD) Non-Af 35 (>60) L 09/10/21 21:45 Glucose 88 mg/dL (65-99) 09/10/21 21:45 Calcium 7.6 mg/dL (8.5-10.1) L 09/10/21 21:45 Corrected Calcium 9.1 mg/dL (8.5-10.1) 09/10/21 21:45 Total Bilirubin 0.10 mg/dL (0.2-1.0) L 09/10/21 21:45 AST 13 Units/L (15-37) L 09/10/21 21:45 ALT 13 Units/L (12-78) 09/10/21 21:45 Alkaline Phosphatase 54 Units/L (46-116) 09/10/21 21:45 Creatine Kinase 11 Units/L (26-192) L 09/11/21 02:27 CK-MB (CK-2) < 1.0 ng/mL (0-4.0) 09/11/21 02:27 CK/CKMB % Calc 9.1 % (<4) 09/11/21 02:27 Troponin I High Sens 62.9 ng/L (4.0-60.0) H* 09/11/21 02:27 B-Natriuretic Peptide 217 pg/mL (0-79) H 09/10/21 21:45 Total Protein 5.4 g/dL (6.4-8.2) L 09/10/21 21:45 Albumin 2.1 g/dL (3.4-5.0) L 09/10/21 21:45 Globulin 3.3 g/dL (2.5-4.5) 09/10/21 21:45 Albumin/Globulin Ratio 0.6 Ratio (1.1-2.1) L 09/10/21 21:45 Specimen Type Catherized urine 09/11/21 01:56 Urine Color Yellow (YELLOW) 09/11/21 01:56 Urine Appearance Clear (CLEAR) 09/11/21 01:56 Urine pH 5.0 (5.0 - 8.0) 09/11/21 01:56 Ur Specific [place] 1.015 (1.000-1.030) 09/11/21 01:56 Urine Protein 1+ (NEGATIVE) 09/11/21 01:56 Urine Glucose (UA) Negative (NEGATIVE) 09/11/21 01:56 Urine Ketones Negative (NEGATIVE) 09/11/21 01:56 Urine Occult Blood Negative (NEGATIVE) 09/11/21 01:56 Urine Nitrite Negative (NEGATIVE) 09/11/21 01:56 Urine Bilirubin Negative (NEGATIVE) 09/11/21 01:56 Urine Urobilinogen Normal (NORMAL) 09/11/21 01:56 Ur Leukocyte Esterase 1+ (NEGATIVE) 09/11/21 01:56 Urine RBC None seen /HPF (0-3) 09/11/21 01:56 Urine WBC 5-10 /HPF (0-5) A 09/11/21 01:56 Ur Squamous Epith Cells Negative /HPF (NEGATIVE) 09/11/21 01:56 Urine Bacteria 2+ /HPF (NEGATIVE) 09/11/21 01:56 Ur Culture Indicated? Yes/culture set up 09/11/21 01:56 SARS CoV-2 RNA Rapid JOSE CARLOS Negative (NEGATIVE) 09/11/21 04:08 Other Results Comments: BNP SLIGHTLY ELEVATED AT 217PG/ML XRAY XRAY Interpreted by: Radiologist (CHEST XRAY NOACTIVE CARDIOPULMONARY DISEASE.) Opioid Opioid Risk Tool Age (Michael box if 16-45): No History of Preadolescent Sexual Abuse: No Total: 0 Total Score Risk Category: Low Risk Copyright: Cornell SEGOVIA predicting aberrant behaviors Diagnosis Discharge Problem: Elevation of cardiac enzymes, Acute alteration in mental status, Mild congestive heart failure, Dehydration, mild Urinary tract infection Qualifiers: Qualified Code(s): N39.0 - Urinary tract infection, site not specified Instructions Forms: Precautions for COVID19 [facility] Social Distancing
[2021-09-10 21:50] LABS: MEAN CORPUSCULAR HGB CONC 32.8 g/dL (33.0-35.0); RED CELL DISTRIBUTION WIDTH 17.3 % (11.6-16.5); WHITE BLOOD COUNT 3.7 X10^3/uL (3.6-10.0)
[2021-09-10 22:05] LABS: BASOPHILS % (AUTO) 0.8 % (0.2-1.0); EOSINOPHILS # (AUTO) 0.2 x10^3/uL (0.0-0.2); EOSINOPHILS % (AUTO) 5.3 % (0.9-2.9); HEMATOCRIT 21.3 % (36.0-47.0); LYMPHOCYTES # (AUTO) 1.1 X10^3/uL (1.3-2.9); LYMPHOCYTES % (AUTO) 28.5 % (21.0-51.0); MEAN CORPUSCULAR HEMOGLOBIN 28.2 pg (27.0-34.0); MEAN CORPUSCULAR VOLUME 86.2 fL (80.0-100.0); MEAN PLATELET VOLUME 9.1 fL (7.4-11.0); MONOCYTES # (AUTO) 0.5 x10^3/uL (0.3-0.8); MONOCYTES % (AUTO) 14.7 % (0.0-13.0); NEUTROPHILS # (AUTO) 1.9 x10^3/uL (2.2-4.8); NEUTROPHILS % (AUTO) 50.7 % (42.0-75.0); RED BLOOD COUNT 2.47 X10^6/uL (3.5-5.4)
--- NOTE | 2021-09-10 22:13 | CT ---
PROCEDURE: CT Head without Contrast .HISTORY: Altered mental status.TECHNIQUE: Axial images were performed through the head without the administration of IV contrast with multiplanar reformations . Dose reduction techniques including Automated Exposure Control (AEC) and adjustment of mA and kV were utilized .COMPARISON: 07/11/2019.TECHNICAL QUALITY: Satisfactory .FINDINGS:Brain shows no mass, hemorrhage, or acute stroke.Mild periventricular old micro ischemic changes. Some encephalomalacia left frontal lobe. [id number] diffuse cerebral and cerebellar atrophy.Ventricles are normal size for patient's age.No acute skull or scalp abnormality.Visualized sinuses and mastoids are clear.IMPRESSION:1. No acute intracranial abnormality.2. Senescent changes.Electronically signed by: Jonatan Back (Sep 10, 2021 22:11:22)
[2021-09-10 22:17] LABS: ALANINE AMINOTRANSFERASE 13 Units/L (12-78); ALBUMIN 2.1 g/dL (3.4-5.0); ALKALINE PHOSPHATASE 54 Units/L (46-116); ASPARTATE AMINO TRANSFERASE 13 Units/L (15-37); BLOOD UREA NITROGEN 20 mg/dL (7-18); CALCIUM 7.6 mg/dL (8.5-10.1); CARBON DIOXIDE 30.9 mmol/L (21-32); CHLORIDE 107 mmol/L (98-107); CKMB % 9.1 % (<4); COR CA(FOR HYPOALB) 9.1 mg/dL (8.5-10.1); CREATINE KINASE 11 Units/L (26-192); CREATINE KINASE MB < 1.0 ng/mL (0-4.0); SODIUM 142 mmol/L (136-145); TOTAL PROTEIN 5.4 g/dL (6.4-8.2); eGFR NON BLACK RACES 35 (>60)
--- NOTE | 2021-09-10 22:22 | RAD ---
PROCEDURE: Chest X-ray 1 View .HISTORY: LETHARGY .TECHNIQUE: AP view .COMPARISON: 08/19/2021.TECHNICAL QUALITY: Satisfactory .FINDINGS:Normal size heart .Mediastinum and hilar regions show no masses or lymphadenopathy .Normal central vascularity .No pulmonary consolidation, masses, pleural fluid, or pneumothorax .No acute bony abnormality .IMPRESSION:No active cardiopulmonary disease .Electronically signed by: Jonatan Back (Sep 10, 2021 22:20:36)
[2021-09-11 02:18] LABS: BILIRUBIN,URINE NEGATIVE (NEGATIVE); BLOOD/HEMOGLOBIN,URINE NEGATIVE (NEGATIVE); GLUCOSE, URINE NEGATIVE (NEGATIVE); KETONES,URINE NEGATIVE (NEGATIVE); LEUKOCYTE ESTERASE ,URINE 1+ (NEGATIVE); NITRITES,URINE NEGATIVE (NEGATIVE); PROTEIN,URINE 1+ (NEGATIVE); UROBILINOGEN,URINE NORMAL (NORMAL)
[2021-09-11 02:39] LABS: APPEARANCE,URINE CLEAR (CLEAR); COLOR,URINE YELLOW (YELLOW)
[2021-09-11 02:40] LABS: BACTERIA,URINE 2+ /HPF (NEGATIVE); RBC,URINE NONE SEEN /HPF (0-3); SQUAMOUS EPITHELIAL CELL,UR NEGATIVE /HPF (NEGATIVE)
[2021-09-11] MEDS ORDERED: ROCEPHIN 1 GRAM IV PREMIX 1 G/50 ML IV.SOLN. IV ONE ×3 (02:47→16:03)
[2021-09-11] MEDS ORDERED: NS 50 ML IV 50 ML IV ONE (02:49)
[2021-09-11 03:36] LABS: CKMB % 9.1 % (<4); CREATINE KINASE 11 Units/L (26-192); CREATINE KINASE MB < 1.0 ng/mL (0-4.0)
[2021-09-11] MEDS ORDERED: PATIENT'S HOME MEDICATION (Hydralazine 100 mg tablet) PO SCH (06:22)
[2021-09-11 08:51] LABS: ALANINE AMINOTRANSFERASE 16 Units/L (12-78); ALBUMIN 2.1 g/dL (3.4-5.0); ALKALINE PHOSPHATASE 57 Units/L (46-116); ASPARTATE AMINO TRANSFERASE 22 Units/L (15-37); BLOOD UREA NITROGEN 21 mg/dL (7-18); CARBON DIOXIDE 30.3 mmol/L (21-32); CHLORIDE 108 mmol/L (98-107); COR CA(FOR HYPOALB) 9.5 mg/dL (8.5-10.1); CREATININE 1.68 mg/dL (0.55-1.02); SODIUM 143 mmol/L (136-145); TOTAL PROTEIN 5.6 g/dL (6.4-8.2); eGFR NON BLACK RACES 31 (>60)
[2021-09-11] MEDS: PROTONIX TAB 40 MG PO SCH ×2 (08:54→20:30)
[2021-09-11] MEDS: EFFEXOR TAB 75 MG (BID DOSING) PO SCH (08:54)
[2021-09-11] MEDS: SINGULAIR TAB 10 MG PO SCH (08:54)
[2021-09-11 08:55] LABS: BASOPHILS # (AUTO) 0.1 X10^3/uL (0.0-0.1); BASOPHILS % (AUTO) 1.6 % (0.2-1.0); EOSINOPHILS # (AUTO) 0.2 x10^3/uL (0.0-0.2); EOSINOPHILS % (AUTO) 6.4 % (0.9-2.9); HEMATOCRIT 21.8 % (36.0-47.0); HEMOGLOBIN 7.2 g/dL (12.0-16.0); LYMPHOCYTES # (AUTO) 1.2 X10^3/uL (1.3-2.9); LYMPHOCYTES % (AUTO) 31.7 % (21.0-51.0); MEAN CORPUSCULAR HEMOGLOBIN 29.1 pg (27.0-34.0); MEAN CORPUSCULAR HGB CONC 33.3 g/dL (33.0-35.0); MEAN CORPUSCULAR VOLUME 87.6 fL (80.0-100.0); MEAN PLATELET VOLUME 9.5 fL (7.4-11.0); MONOCYTES # (AUTO) 0.6 x10^3/uL (0.3-0.8); MONOCYTES % (AUTO) 15.3 % (0.0-13.0); NEUTROPHILS # (AUTO) 1.6 x10^3/uL (2.2-4.8); RED BLOOD COUNT 2.49 X10^6/uL (3.5-5.4); RED CELL DISTRIBUTION WIDTH 17.2 % (11.6-16.5); WHITE BLOOD COUNT 3.6 X10^3/uL (3.6-10.0)
[2021-09-11] MEDS ORDERED: K-DUR TAB 20 MEQ PO SCH (09:00)
[2021-09-11] MEDS ORDERED: PATIENT'S HOME MEDICATION (Iron-Folic Acid-Mv, Min Cmb#15 [Hemocyte-Plus] 106 mg iron- 1 m PO SCH (09:00)
[2021-09-11] MEDS ORDERED: LASIX PO SCH (09:00)
[2021-09-11] MEDS ORDERED: ARICEPT TAB 10 MG PO SCH ×2 (09:00)
[2021-09-11] MEDS ORDERED: DIOVAN TAB 80 MG PO SCH (09:00)
[2021-09-11] MEDS ORDERED: LOPRESSOR TAB 25 MG PO SCH (09:00)
[2021-09-11] MEDS: CORDARONE TAB 200 MG PO SCH (09:03)
[2021-09-11] MEDS: REQUIP PO SCH ×3 (09:07→21:32)
[2021-09-11] MEDS: PLAVIX PO SCH (09:07)
[2021-09-11] MEDS: PEPCID TAB 40 MG PO SCH ×2 (09:07→20:30)
[2021-09-11 10:18] VITALS: BMI 21.1
--- NOTE | 2021-09-11 10:28 | DR.H&P ---
H&P - History & Physical for Day of: H&P Date: 09/11/21 - Chief Complaint Chief Complaint: WEAKNESS, DECREASE URINE OUTPT PER FAMILY - History of Present Illness History of Present Illness: PT IS 86 WF ER ADMISSION WITH CO WEAKNESS AND DECREASED URINE OUTPT. PT HAS HX OF CAD AND CHF, CURRENTLY ON PO LASIX. FAMILY REPORTS PT IS WEAK, LETHARGIC AND HAD HAD POOR URINE OUTPT. PT HAD ABNORMAL CE IN ER. PT ADMITTED FOR TREATMENT OF ACUTE ILLNESS. - Past Medical History Past Medical History: [place], Coronary Artery Disease, Hypertension, Dyslipidemia, Anemia, COPD, Asthma, GERD, Arthritis, CHF Additional Medical History: Breast and uterine cancer - Past Surgical History Surgical History: Angioplasty/Stents, Cholecystectomy, Hysterectomy, Other, Tonsillectomy - Family History Family Medical History: Diabetes Mellitus, Cancer, [place], Coronary Artery Disease, Sudden Cardiac , Hypertension - Social History Does patient currently use any type of tobacco product: Yes Have you used tobacco products in the last 12 months: Yes Type of Tobacco Use: Cigarettes Does any household member use tobacco: No Alcohol Use: None Drug Use: None - Medications Home Medications: levofloxacin [From Levaquin] Allergy (Verified 07/11/19 23:02) CONTINUE taking the following medications carvedilol 6.25 mg PO BID 09/11/21 [History] gabapentin 200 mg PO BID 09/11/21 [History] quetiapine [Seroquel] 25 mg PO HS 09/11/21 [History] tamsulosin 0.4 mg PO DAILY 09/11/21 [History] - Review of Systems Constitutional: Weakness, Malaise Eyes: No Symptoms Reported ENT: No Symptoms Reported Respiratory: SOB with Excertion Cardiovascular: Light Headedness Gastrointestinal: No Symptoms Reported Genitourinary: No Symptoms Reported Musculoskeletal: No Symptoms Reported Skin: Bruising Neurological: Weakness - Physical Exam Vital Signs: Temperature 98.2 F Pulse Rate [Left] 53 Pulse Rate 53 Respiratory Rate 18 Blood Pressure [Right Arm] 136/53 Blood Pressure [Right Thigh] 188/76 Blood Pressure [Left Thigh] 172/68 Blood Pressure [Left Calf] 126/56 Blood Pressure [Left Arm] 113/53 Blood Pressure 125/49 O2 Sat by Pulse Oximetry 98 Oriented: Person Eyes: Normal Ear: Normal Nose: Normal Throat: Dry Respiratory: RLL Diminished, LLL Diminished Cardiovascular: Normal : Normal Auscultation: Bowel Sounds: Normal Tenderness: Normal Skin: Decreased [place]urgur Musculoskeletal: Right, Left, Leg, Instability Psychiatric: Normal Speech Pattern: Clear, Appropriate - Assessment/Plan (1) Elevation of cardiac enzymes Status: Acute Plan: ADMIT SERIAL CE AND EKG. BP AND CARDIAC MONITORING. VERIFY HOME MEDICATION. ANEMIA PANEL, OCCULT STOOL. SUPPLEMENTAL O2, STRICT I &OS. BS CONTROL (2) CAD (coronary artery disease) Status: Acute (3) Urinary tract infection Qualifiers: Qualified Code(s): N39.0 - Urinary tract infection, site not specified Status: Acute (4) Mild congestive heart failure Status: Acute (5) Congestive heart failure Qualifiers: Status: Chronic (6) COPD (chronic obstructive pulmonary disease) with acute bronchitis Status: Chronic - Allergies Allergies/Adverse Reactions: Allergies Allergy/AdvReac Type Severity Reaction Status Date / Time levofloxacin [From Levaquin] Allergy Verified 07/11/19 23:02
[2021-09-11 11:04] LABS: IRON 32 ug/dL (50-175)
[2021-09-11 13:23] LABS: CRYPTOSPORIDIUM PARVUM ANTIGEN NEGATIVE (NEGATIVE); GIARDIA LAMBLIA ANTIGEN NEGATIVE (NEGATIVE)
[2021-09-11] MEDS ORDERED: APRESOLINE TAB 25 MG PO SCH (14:00)
[2021-09-11] MEDS: PERIACTIN TAB 4 MG PO SCH ×2 (14:05→14:56)
--- NOTE | 2021-09-11 14:23 | RAD ---
HISTORYchf hx: CVA>CAD>[place]>AFIB>COPD>BLADDER CANCER< UTERINE CANCER< BREAST CANCER.br CHOLECYSECTOMY< TONSILLECTOMYSTUDYCHEST, 1 VIEWCOMPARISONChest x-ray dated September 10, 2021.FINDINGSThe trachea is midline. The cardiac silhouette is unchanged. Chronic emphysematous and interstitial lung changes. Postsurgical changes status post left mastectomy and axillary lymph node dissection. The lungs are clear without focal infiltrate, pneumothorax, or effusion. The bony thorax is unremarkable.IMPRESSIONNo acute cardiopulmonary findings .Electronically signed by: LATHA CHADWICK (Sep 11, 2021 14:21:29)
[2021-09-11] MEDS: ROCEPHIN 1 GRAM IV PREMIX 1 G/50 ML IV.SOLN. IV SCH (16:11)
[2021-09-11] MEDS: PRAVACHOL PO SCH (20:34)
[2021-09-12] MEDS ORDERED: NS 500 ML IV 500 ML IV ONE (00:12)
[2021-09-12] MEDS ORDERED: NS 500 ML IV 300 ML IV ONE (00:12)
[2021-09-12 05:37] LABS: BASOPHILS % (AUTO) 1.4 % (0.2-1.0); EOSINOPHILS # (AUTO) 0.3 x10^3/uL (0.0-0.2); EOSINOPHILS % (AUTO) 7.6 % (0.9-2.9); HEMATOCRIT 20.6 % (36.0-47.0); LYMPHOCYTES # (AUTO) 0.9 X10^3/uL (1.3-2.9); LYMPHOCYTES % (AUTO) 26.6 % (21.0-51.0); MEAN CORPUSCULAR HEMOGLOBIN 28.7 pg (27.0-34.0); MEAN CORPUSCULAR HGB CONC 33.1 g/dL (33.0-35.0); MEAN CORPUSCULAR VOLUME 86.7 fL (80.0-100.0); MEAN PLATELET VOLUME 9.2 fL (7.4-11.0); MONOCYTES # (AUTO) 0.6 x10^3/uL (0.3-0.8); MONOCYTES % (AUTO) 17.6 % (0.0-13.0); NEUTROPHILS # (AUTO) 1.6 x10^3/uL (2.2-4.8); NEUTROPHILS % (AUTO) 46.8 % (42.0-75.0); RED BLOOD COUNT 2.37 X10^6/uL (3.5-5.4); RED CELL DISTRIBUTION WIDTH 17.1 % (11.6-16.5); WHITE BLOOD COUNT 3.4 X10^3/uL (3.6-10.0)
[2021-09-12 05:42] LABS: HEMOGLOBIN 6.8 g/dL (12.0-16.0)
[2021-09-12] MEDS: REQUIP PO SCH ×3 (05:52→21:15)
[2021-09-12 05:57] LABS: ALANINE AMINOTRANSFERASE 14 Units/L (12-78); ALBUMIN 1.9 g/dL (3.4-5.0); ALKALINE PHOSPHATASE 51 Units/L (46-116); ASPARTATE AMINO TRANSFERASE 22 Units/L (15-37); BLOOD UREA NITROGEN 20 mg/dL (7-18); CALCIUM 7.7 mg/dL (8.5-10.1); CARBON DIOXIDE 28.6 mmol/L (21-32); CHLORIDE 109 mmol/L (98-107); COR CA(FOR HYPOALB) 9.4 mg/dL (8.5-10.1); CREATINE KINASE 25 Units/L (26-192); CREATINE KINASE MB < 1.0 ng/mL (0-4.0); CREATININE 1.42 mg/dL (0.55-1.02); SODIUM 145 mmol/L (136-145); TOTAL PROTEIN 5.3 g/dL (6.4-8.2); eGFR NON BLACK RACES 37 (>60)
[2021-09-12] MEDS: SINGULAIR TAB 10 MG PO SCH (08:28)
[2021-09-12] MEDS: CORDARONE TAB 200 MG PO SCH (08:28)
[2021-09-12] MEDS: ROCEPHIN 1 GRAM IV PREMIX 1 G/50 ML IV.SOLN. IV SCH (08:28)
[2021-09-12] MEDS: EFFEXOR TAB 75 MG (BID DOSING) PO SCH (08:28)
[2021-09-12] MEDS: PROTONIX TAB 40 MG PO SCH ×2 (08:28→21:16)
[2021-09-12] MEDS: PEPCID TAB 40 MG PO SCH ×2 (08:29→21:15)
[2021-09-12] MEDS: HEMOCYTE-PLUS PO SCH (08:29)
[2021-09-12] MEDS ORDERED: LASIX PO SCH (09:00)
[2021-09-12] MEDS ORDERED: TYLENOL 325 MG TAB PO ONE (12:43)
[2021-09-12] MEDS ORDERED: BENADRYL INJ 50 MG VIAL IVP ONE (12:50)
[2021-09-12] MEDS ORDERED: NS 250 ML IV 250 ML IV ONE ×2 (13:05→23:37)
[2021-09-12] MEDS: PLAVIX PO SCH (17:27)
[2021-09-12] MEDS: PRAVACHOL PO SCH (21:16)
[2021-09-13 04:19] LABS: WHITE BLOOD COUNT 4.7 X10^3/uL (3.6-10.0)
[2021-09-13 04:22] LABS: BASOPHILS # (AUTO) 0.1 X10^3/uL (0.0-0.1); BASOPHILS % (AUTO) 1.4 % (0.2-1.0); EOSINOPHILS # (AUTO) 0.4 x10^3/uL (0.0-0.2); EOSINOPHILS % (AUTO) 7.8 % (0.9-2.9); HEMATOCRIT 32.6 % (36.0-47.0); LYMPHOCYTES # (AUTO) 1.1 X10^3/uL (1.3-2.9); LYMPHOCYTES % (AUTO) 22.9 % (21.0-51.0); MEAN CORPUSCULAR HEMOGLOBIN 29.3 pg (27.0-34.0); MEAN CORPUSCULAR VOLUME 86.1 fL (80.0-100.0); MEAN PLATELET VOLUME 7.8 fL (7.4-11.0); MONOCYTES # (AUTO) 0.9 x10^3/uL (0.3-0.8); MONOCYTES % (AUTO) 19.1 % (0.0-13.0); NEUTROPHILS # (AUTO) 2.3 x10^3/uL (2.2-4.8); NEUTROPHILS % (AUTO) 48.8 % (42.0-75.0); RED BLOOD COUNT 3.79 X10^6/uL (3.5-5.4); RED CELL DISTRIBUTION WIDTH 16.4 % (11.6-16.5)
[2021-09-13 04:29] LABS: ALANINE AMINOTRANSFERASE 17 Units/L (12-78); ALBUMIN 2.2 g/dL (3.4-5.0); ALKALINE PHOSPHATASE 59 Units/L (46-116); ASPARTATE AMINO TRANSFERASE 20 Units/L (15-37); BLOOD UREA NITROGEN 15 mg/dL (7-18); CALCIUM 7.9 mg/dL (8.5-10.1); CARBON DIOXIDE 28.1 mmol/L (21-32); CHLORIDE 109 mmol/L (98-107); COR CA(FOR HYPOALB) 9.3 mg/dL (8.5-10.1); CREATININE 1.21 mg/dL (0.55-1.02); SODIUM 142 mmol/L (136-145); TOTAL PROTEIN 5.6 g/dL (6.4-8.2); eGFR NON BLACK RACES 45 (>60)
[2021-09-13 04:36] LABS: HEMOGLOBIN 11.1 g/dL (12.0-16.0)
[2021-09-13] MEDS: REQUIP PO SCH ×3 (05:54→22:00)
[2021-09-13] MEDS ORDERED: TYLENOL 500 MG TAB EXTRA STRENGTH PO PRN (08:22)
[2021-09-13] MEDS: ROCEPHIN 1 GRAM IV PREMIX 1 G/50 ML IV.SOLN. IV SCH (08:43)
[2021-09-13] MEDS: HEMOCYTE-PLUS PO SCH (08:43)
[2021-09-13] MEDS: SINGULAIR TAB 10 MG PO SCH (08:43)
[2021-09-13] MEDS: PLAVIX PO SCH (08:43)
[2021-09-13] MEDS: PROTONIX TAB 40 MG PO SCH ×2 (08:43→20:34)
[2021-09-13] MEDS: EFFEXOR TAB 75 MG (BID DOSING) PO SCH (08:43)
[2021-09-13] MEDS: CORDARONE TAB 200 MG PO SCH (08:44)
[2021-09-13] MEDS: PEPCID TAB 40 MG PO SCH ×2 (08:44→20:26)
[2021-09-13 10:31] LABS: CKMB % 4.2 % (<4); CREATINE KINASE 24 Units/L (26-192); CREATINE KINASE MB < 1.0 ng/mL (0-4.0)
[2021-09-13] MEDS ORDERED: MORPHINE SULFATE INJ 2 MG INJ IVP PRN (10:35)
[2021-09-13] MEDS: COREG TAB 6.25 MG PO SCH ×2 (11:06→20:26)
[2021-09-13] MEDS: MAXIPIME VIAL 1 GRAM 1 G in NS 50 ML IV 50 ML IV SCH ×3 (11:06→20:26)
--- NOTE | 2021-09-13 11:45 | PCM.PROG ---
Progress Note Progress Note for Day of Date of Exam: 09/13/21 Subjective Subjective: Patient seen at bedside, no acute events overnight. Patient has been admitted for generalized weakness, poor oral intake and decreased UOP. She was found to have UTI and anemia. She was given 2 units of PRBCs. Her cardiac enzymes were also elevated. Patient was recently discharged from [facility] and was admitted there for NSTEMI and anemia. Cardiology evaluated the patient and recommended medical management as patient is high risk for any intervention. She was also seen by GI there and could not undergo EGD due to low BP. Patient was started on DAPT with asa and plavix and was told to continue taking plavix till 09/17/21 and then take asa alone. Patient states she feels better, complaining of headache this morning. Patient does have outpatient follow ups scheduled with GI and cardiology. She was discharged home with hospice from [facility]. Labs/imaging reviewed Plan: Continue home medications, monitor H/H, transfuse < 8. Hgb 11.1 today. Change to Cefepime as Rocephin is resistant. Add morphine prn for pain control. PT/OT as tolerated. Will change to cardiac diet. Patient is not a candidate for cardiac intervention as per cardiology in [facility]. She is also high risk for EGD. Monitor AM labs/imaging. Past Medical Family Social History Past Med/Fam/Surg Hx: No changes since H&P Allergies: Allergies levofloxacin [From Levaquin] Allergy (Verified 07/11/19 23:02) Review of Systems ROS: No change since H&P Vital Signs and I&O's Vital Signs: Temperature 98.4 F Pulse Rate [Right Radial] 71 Pulse Rate [Brachial] 63 Pulse Rate [Left] 76 Pulse Rate 53 Respiratory Rate 20 Blood Pressure [Right Arm] 114/61 Blood Pressure [Right Thigh] 188/76 Blood Pressure [Left Thigh] 172/68 Blood Pressure [Left Calf] 126/56 Blood Pressure [Left Arm] 113/53 Blood Pressure 125/49 O2 Sat by Pulse Oximetry 96 Intake and Output: Intake & Output 09/10/21 09/11/21 09/12/21 09/13/21 23:59 23:59 23:59 23:59 Intake Total 670 / 670 1050 / 1272 622 / 622 Balance 670 / 670 1050 / 1272 622 / 622 Physical Exam Oriented: Person Eyes: Normal Ear: Normal Nose: Normal Throat: Normal Respiratory: Generalized and Diminished Cardiovascular: Normal Auscultation: Bowel Sounds: Normal Tenderness: Normal Skin: Decreased Turgur Musculoskeletal: Instability Psychiatric: Normal Mood Description: Calm Affect: Normal Speech Pattern: Clear and Appropriate Laboratory and Diagnostics Result Diagrams: 09/13/21 04:00 09/13/21 04:00 Labs: 09/11/21 10:45 Stool Stool Culture - Final 09/11/21 10:45 Stool - Final 09/11/21 01:56 Urine,Catheterized Urine Culture - Final Enterobacter Cloacae Laboratory WBC 4.7 X10^3/uL (3.6-10.0) 09/13/21 04:00 RBC 3.79 X10^6/uL (3.5-5.4) 09/13/21 04:00 Hgb 11.1 g/dL (12.0-16.0) L D 09/13/21 04:00 Hct 32.6 % (36.0-47.0) L 09/13/21 04:00 MCV 86.1 fL (80.0-100.0) 09/13/21 04:00 MCH 29.3 pg (27.0-34.0) 09/13/21 04:00 MCHC 34.0 g/dL (33.0-35.0) 09/13/21 04:00 RDW 16.4 % (11.6-16.5) 09/13/21 04:00 Plt Count 402 X10^3/uL (150.0-450.0) 09/13/21 04:00 MPV 7.8 fL (7.4-11.0) 09/13/21 04:00 Neut % (Auto) 48.8 % (42.0-75.0) 09/13/21 04:00 Lymph % (Auto) 22.9 % (21.0-51.0) 09/13/21 04:00 [place] % (Auto) 19.1 % (0.0-13.0) H 09/13/21 04:00 Eos % (Auto) 7.8 % (0.9-2.9) H 09/13/21 04:00 Baso % (Auto) 1.4 % (0.2-1.0) H 09/13/21 04:00 Neut # (Auto) 2.3 x10^3/uL (2.2-4.8) 09/13/21 04:00 Lymph # (Auto) 1.1 X10^3/uL (1.3-2.9) L 09/13/21 04:00 [place] # (Auto) 0.9 x10^3/uL (0.3-0.8) H 09/13/21 04:00 Eos # (Auto) 0.4 x10^3/uL (0.0-0.2) H 09/13/21 04:00 Baso # (Auto) 0.1 X10^3/uL (0.0-0.1) 09/13/21 04:00 Absolute Nucleated RBC 0.2 /100WBC 09/13/21 04:00 Sodium 142 mmol/L (136-145) 09/13/21 04:00 Corrected Sodium TNP 09/13/21 04:00 Potassium 4.1 mmol/L (3.5-5.1) 09/13/21 04:00 Chloride 109 mmol/L (98-107) H 09/13/21 04:00 Carbon Dioxide 28.1 mmol/L (21-32) 09/13/21 04:00 BUN 15 mg/dL (7-18) 09/13/21 04:00 Creatinine 1.21 mg/dL (0.55-1.02) H 09/13/21 04:00 Est GFR (MDRD) Af Amer 55 (>60) L 09/13/21 04:00 Est GFR (MDRD) Non-Af 45 (>60) L 09/13/21 04:00 Glucose 98 mg/dL (65-99) 09/13/21 04:00 Calcium 7.9 mg/dL (8.5-10.1) L 09/13/21 04:00 Corrected Calcium 9.3 mg/dL (8.5-10.1) 09/13/21 04:00 Iron 32 ug/dL (50-175) L 09/11/21 08:19 Transferrin 184 mg/dL (202-364) L 09/11/21 08:19 Ferritin 77 ng/mL (8-252) 09/11/21 08:19 Total Bilirubin 0.60 mg/dL (0.2-1.0) 09/13/21 04:00 AST 20 Units/L (15-37) 09/13/21 04:00 ALT 17 Units/L (12-78) 09/13/21 04:00 Alkaline Phosphatase 59 Units/L (46-116) 09/13/21 04:00 Creatine Kinase 24 Units/L (26-192) L 09/13/21 04:00 CK-MB (CK-2) < 1.0 ng/mL (0-4.0) 09/13/21 04:00 CK/CKMB % Calc 4.2 % (<4) 09/13/21 04:00 Troponin I High Sens 128.2 ng/L (4.0-60.0) H* 09/13/21 04:00 B-Natriuretic Peptide 217 pg/mL (0-79) H 09/10/21 21:45 Total Protein 5.6 g/dL (6.4-8.2) L 09/13/21 04:00 Albumin 2.2 g/dL (3.4-5.0) L 09/13/21 04:00 Globulin 3.4 g/dL (2.5-4.5) 09/13/21 04:00 Albumin/Globulin Ratio 0.6 Ratio (1.1-2.1) L 09/13/21 04:00 Vitamin B12 609 pg/mL (193-986) 09/11/21 08:19 Folate > 20.0 ng/mL (>8.6) 09/11/21 08:19 Specimen Type Catherized urine 09/11/21 01:56 Urine Color Yellow (YELLOW) 09/11/21 01:56 Urine Appearance Clear (CLEAR) 09/11/21 01:56 Urine pH 5.0 (5.0 - 8.0) 09/11/21 01:56 Ur Specific [place] 1.015 (1.000-1.030) 09/11/21 01:56 Urine Protein 1+ (NEGATIVE) 09/11/21 01:56 Urine Glucose (UA) Negative (NEGATIVE) 09/11/21 01:56 Urine Ketones Negative (NEGATIVE) 09/11/21 01:56 Urine Occult Blood Negative (NEGATIVE) 09/11/21 01:56 Urine Nitrite Negative (NEGATIVE) 09/11/21 01:56 Urine Bilirubin Negative (NEGATIVE) 09/11/21 01:56 Urine Urobilinogen Normal (NORMAL) 09/11/21 01:56 Ur Leukocyte Esterase 1+ (NEGATIVE) 09/11/21 01:56 Urine RBC None seen /HPF (0-3) 09/11/21 01:56 Urine WBC 5-10 /HPF (0-5) A 09/11/21 01:56 Ur Squamous Epith Cells Negative /HPF (NEGATIVE) 09/11/21 01:56 Urine Bacteria 2+ /HPF (NEGATIVE) 09/11/21 01:56 Ur Culture Indicated? Yes/culture set up 09/11/21 01:56 Stool Description 30g formed brown 09/11/21 10:45 Stool Description 30g formed brown 09/11/21 10:45 Stool Sodium Cancelled 09/11/21 10:45 Stool Potassium Cancelled 09/11/21 10:45 Stool Chloride Cancelled 09/11/21 10:45 Stl Occult Blood (IFOB) Positive (NEGATIVE) A 09/11/21 10:45 Stl C. diff Tox B Gene Negative (NEGATIVE) 09/11/21 10:45 Stl C. diff [id number] Presumptive negative (NEGATIVE) 09/11/21 10:45 Cryptosporid parvum Ag Negative (NEGATIVE) 09/11/21 10:45 Giardia lamblia Ag Negative (NEGATIVE) 09/11/21 10:45 SARS CoV-2 RNA Rapid JOSE CARLOS Negative (NEGATIVE) 09/11/21 04:08 Blood Type A POSITIVE 09/12/21 08:15 Antibody Screen Negative 09/12/21 08:15 Crossmatch See Detail 09/12/21 08:15 Plan (1) Anemia: Status: Acute Qualifiers: Anemia type: iron deficiency Iron deficiency anemia type: unspecified iron deficiency Qualified Code(s): D50.9 - Iron deficiency anemia, unspecified (2) Urinary tract infection: Status: Acute Qualifiers: Qualified Code(s): N39.0 - Urinary tract infection, site not specified (3) Elevation of cardiac enzymes: Status: Acute (4) CAD (coronary artery disease): Status: Acute Qualifiers: Associated angina: unspecified whether angina present Coronary Disease- Associated Artery/Lesion type: unspecified vessel or lesion type [place] vs. transplanted heart: [place] heart Qualified Code(s): I25.10 - Atherosclerotic heart disease of [place] coronary artery without angina pectoris (5) Mild congestive heart failure: Status: Acute (6) Congestive heart failure: Status: Chronic Qualifiers: Heart failure chronicity: chronic Heart failure type: unspecified Qualified Code(s): I50.9 - Heart failure, unspecified (7) COPD (chronic obstructive pulmonary disease) with acute bronchitis: Status: Chronic (8) Chronic kidney disease: Status: Chronic Qualifiers: Chronic kidney disease stage: unspecified stage Qualified Code(s): N18.9 - Chronic kidney disease, unspecified
[2021-09-13] MEDS: PRAVACHOL PO SCH (20:26)
[2021-09-14] MEDS ORDERED: BUTT CREAM (COMPOUND) ONE (03:56)
[2021-09-14] MEDS: REQUIP PO SCH ×2 (05:21→14:33)
[2021-09-14 05:29] LABS: BASOPHILS # (AUTO) 0.1 X10^3/uL (0.0-0.1); BASOPHILS % (AUTO) 0.8 % (0.2-1.0); EOSINOPHILS # (AUTO) 0.3 x10^3/uL (0.0-0.2); EOSINOPHILS % (AUTO) 4.8 % (0.9-2.9); HEMATOCRIT 34.7 % (36.0-47.0); HEMOGLOBIN 11.8 g/dL (12.0-16.0); LYMPHOCYTES % (AUTO) 16.3 % (21.0-51.0); MEAN CORPUSCULAR HGB CONC 33.9 g/dL (33.0-35.0); MEAN CORPUSCULAR VOLUME 85.6 fL (80.0-100.0); MONOCYTES # (AUTO) 1.3 x10^3/uL (0.3-0.8); MONOCYTES % (AUTO) 20.1 % (0.0-13.0); NEUTROPHILS # (AUTO) 3.7 x10^3/uL (2.2-4.8); RED BLOOD COUNT 4.05 X10^6/uL (3.5-5.4); RED CELL DISTRIBUTION WIDTH 16.6 % (11.6-16.5); WHITE BLOOD COUNT 6.4 X10^3/uL (3.6-10.0)
[2021-09-14 05:39] LABS: BLOOD UREA NITROGEN 12 mg/dL (7-18); CALCIUM 8.1 mg/dL (8.5-10.1); CARBON DIOXIDE 27.2 mmol/L (21-32); CHLORIDE 108 mmol/L (98-107); CREATININE 1.01 mg/dL (0.55-1.02); SODIUM 143 mmol/L (136-145); eGFR NON BLACK RACES 56 (>60)
[2021-09-14 05:55] LABS: BAND NEUTROPHILS % 2 % (0-10); GIANT PLATELET FEW; METAMYELOCYTES % 1; PLATELET MORPHOLOGY COMMENT ABNORMAL (NORMAL)
[2021-09-14 05:56] LABS: ANISOCYTOSIS SLIGHT; SCHISTOCYTES PRESENT
[2021-09-14] MEDS ORDERED: COREG TAB 3.125 MG PO SCH (09:00)
[2021-09-14] MEDS: CORDARONE TAB 200 MG PO SCH (09:11)
[2021-09-14] MEDS: EFFEXOR TAB 75 MG (BID DOSING) PO SCH (09:12)
[2021-09-14] MEDS: HEMOCYTE-PLUS PO SCH (09:12)
[2021-09-14] MEDS: PEPCID TAB 40 MG PO SCH (09:13)
[2021-09-14] MEDS: SINGULAIR TAB 10 MG PO SCH (09:14)
[2021-09-14] MEDS: PLAVIX PO SCH (09:15)
[2021-09-14] MEDS: PROTONIX TAB 40 MG PO SCH (09:17)
[2021-09-14] MEDS: MAXIPIME VIAL 1 GRAM 1 G in NS 50 ML IV 50 ML IV SCH (09:18)
--- NOTE | 2021-09-14 09:18 | W.DIS.FURT ---
Summary of Discharge Discharge Summary of Date Date of Exam: 09/14/21 Admission Date Date of Admission: 09/11/21 Admission Diagnosis Patient Problems (Updated 09/21/21 @ 14:19 by Priscilla Lowe) Elevation of cardiac enzymes (Chronic) R74.8 Urinary tract infection (Acute) N39.0 Acute alteration in mental status (Acute) R41.82 Mild congestive heart failure (Chronic) I50.9 Dehydration, mild (Acute) E86.0 CAD (coronary artery disease) (Chronic) I25.10 Congestive heart failure (Chronic) I50.9 COPD (chronic obstructive pulmonary disease) with acute bronchitis (Chronic) J44.0, J20.9 Hospital Course: Ms Shane is a 86y/o female with multiple comorbidities presented with generalized weakness, lethargy and poor urine output. She has a hx of CAD, CHF, HTN and dementia. Patient was recently trasferred to [facility] for further cardiac work up due to elevated cardiac enzymes. Cardiology evaluated the patient and recommended medical management as patient is high risk for any intervention. She was also seen by GI there and could not undergo EGD due to low BP. Patient was started on DAPT with asa and plavix and was told to continue taking plavix till 09/17/21 and then take asa alone. During this admission, patient was found to have UTI and anemia. She was started on IV antibiotics. She also received 2 units of PRBCs and hemoglobin was monitored closely. Patient is high risk for EGD due to underlying cardiac condition. She was doing well, tolerating PO intake. She also worked with PT as tolerated. Patient was stable for discharge and will f/u with cardiology and PCP as scheduled. Patient was previously receiving home hospice services and can resume at discharge. Vital Signs: Vital Signs (72 hours) 09/11/21 12:00 09/11/21 16:00 09/11/21 20:00 Temperature 97.6 F 97.6 F 98.5 F Pulse Rate [Brachial] Pulse Rate [Left] 57 L 61 63 Pulse Rate [Right Radial] Respiratory Rate 20 20 21 Blood Pressure [Right Arm] 126/66 140/51 135/56 O2 Sat by Pulse Oximetry 97 99 98 09/12/21 00:00 09/12/21 04:00 09/12/21 07:02 Temperature 98.6 F 98.7 F Pulse Rate [Brachial] 63 Pulse Rate [Left] 66 62 Pulse Rate [Right Radial] Respiratory Rate 21 18 20 Blood Pressure [Right Arm] 76/42 78/56 76/41 O2 Sat by Pulse Oximetry 98 97 100 09/12/21 07:05 09/12/21 07:10 09/12/21 07:15 Temperature Pulse Rate [Brachial] Pulse Rate [Left] 64 65 Pulse Rate [Right Radial] Respiratory Rate 18 18 Blood Pressure [Right Arm] 81/43 82/43 76/41 O2 Sat by Pulse Oximetry 100 100 09/12/21 07:20 09/12/21 07:25 09/12/21 07:35 Temperature Pulse Rate [Brachial] Pulse Rate [Left] Pulse Rate [Right Radial] Respiratory Rate Blood Pressure [Right Arm] 72/41 76/41 78/41 O2 Sat by Pulse Oximetry 09/12/21 07:38 09/12/21 07:48 09/12/21 08:00 Temperature Pulse Rate [Brachial] Pulse Rate [Left] Pulse Rate [Right Radial] Respiratory Rate Blood Pressure [Right Arm] 73/40 75/41 109/45 O2 Sat by Pulse Oximetry 09/12/21 08:33 09/12/21 09:42 09/12/21 12:00 Temperature 98.4 F Pulse Rate [Brachial] Pulse Rate [Left] 76 Pulse Rate [Right Radial] Respiratory Rate 16 Blood Pressure [Right Arm] 109/65 106/63 102/74 O2 Sat by Pulse Oximetry 98 09/12/21 12:51 09/12/21 13:51 09/12/21 16:00 Temperature 98.7 F Pulse Rate [Brachial] Pulse Rate [Left] Pulse Rate [Right Radial] 69 Respiratory Rate 20 20 16 Blood Pressure [Right Arm] 100/58 O2 Sat by Pulse Oximetry 98 09/12/21 20:00 09/13/21 00:00 09/13/21 04:00 Temperature 97.7 F 98.2 F 98.4 F Pulse Rate [Brachial] Pulse Rate [Left] Pulse Rate [Right Radial] 69 66 71 Respiratory Rate 20 18 18 Blood Pressure [Right Arm] 113/58 110/62 114/61 O2 Sat by Pulse Oximetry 98 97 96 09/13/21 08:00 09/13/21 11:07 09/13/21 12:00 Temperature 98.7 F 98.8 F Pulse Rate [Brachial] Pulse Rate [Left] Pulse Rate [Right Radial] 80 76 Respiratory Rate 20 20 18 Blood Pressure [Right Arm] 128/69 108/57 O2 Sat by Pulse Oximetry 98 97 09/13/21 12:07 09/13/21 16:00 09/13/21 20:00 Temperature 98.8 F 98.7 F Pulse Rate [Brachial] Pulse Rate [Left] Pulse Rate [Right Radial] 70 74 Respiratory Rate 20 20 18 Blood Pressure [Right Arm] 105/54 105/59 O2 Sat by Pulse Oximetry 93 L 96 09/14/21 00:00 09/14/21 03:56 Temperature 98.3 F 97.9 F Pulse Rate [Brachial] Pulse Rate [Left] Pulse Rate [Right Radial] 67 74 Respiratory Rate 20 20 Blood Pressure [Right Arm] 96/63 100/59 O2 Sat by Pulse Oximetry 98 94 L Labs: Laboratory Last Values WBC 6.4 X10^3/uL (3.6-10.0) 09/14/21 04:44 RBC 4.05 X10^6/uL (3.5-5.4) 09/14/21 04:44 Hgb 11.8 g/dL (12.0-16.0) L 09/14/21 04:44 Hct 34.7 % (36.0-47.0) L 09/14/21 04:44 MCV 85.6 fL (80.0-100.0) 09/14/21 04:44 MCH 29.0 pg (27.0-34.0) 09/14/21 04:44 MCHC 33.9 g/dL (33.0-35.0) 09/14/21 04:44 RDW 16.6 % (11.6-16.5) H 09/14/21 04:44 Plt Count 430 X10^3/uL (150.0-450.0) 09/14/21 04:44 Plt Count Comment Adequate (ADEQUATE) 09/14/21 04:44 MPV 8.0 fL (7.4-11.0) 09/14/21 04:44 Neut % (Auto) 58.0 % (42.0-75.0) 09/14/21 04:44 Lymph % (Auto) 16.3 % (21.0-51.0) L 09/14/21 04:44 [place] % (Auto) 20.1 % (0.0-13.0) H 09/14/21 04:44 Eos % (Auto) 4.8 % (0.9-2.9) H 09/14/21 04:44 Baso % (Auto) 0.8 % (0.2-1.0) 09/14/21 04:44 Neut # (Auto) 3.7 x10^3/uL (2.2-4.8) 09/14/21 04:44 Lymph # (Auto) 1.0 X10^3/uL (1.3-2.9) L 09/14/21 04:44 [place] # (Auto) 1.3 x10^3/uL (0.3-0.8) H 09/14/21 04:44 Eos # (Auto) 0.3 x10^3/uL (0.0-0.2) H 09/14/21 04:44 Baso # (Auto) 0.1 X10^3/uL (0.0-0.1) 09/14/21 04:44 Absolute Nucleated RBC 0.0 /100WBC 09/14/21 04:44 Total Counted 100 09/14/21 04:44 Neutrophils % (Manual) 62 % (39-76) 09/14/21 04:44 Band Neutrophils % 2 % (0-10) 09/14/21 04:44 Lymphocytes % (Manual) 14 % (13-43) 09/14/21 04:44 Monocytes % (Manual) 16 % (4-9) H 09/14/21 04:44 Eosinophils % (Manual) 5 % (0-6) 09/14/21 04:44 Metamyelocytes % 1 09/14/21 04:44 Atypical Lymphocytes Few A 09/14/21 04:44 Giant Platelets Few 09/14/21 04:44 Plt Morphology Comment Abnormal (NORMAL) A 09/14/21 04:44 RBC Morphology Abnormal (NORMAL) A 09/14/21 04:44 Anisocytosis Slight A 09/14/21 04:44 Schistocytes Present 09/14/21 04:44 Sodium 143 mmol/L (136-145) 09/14/21 04:44 Corrected Sodium TNP 09/14/21 04:44 Potassium 3.8 mmol/L (3.5-5.1) 09/14/21 04:44 Chloride 108 mmol/L (98-107) H 09/14/21 04:44 Carbon Dioxide 27.2 mmol/L (21-32) 09/14/21 04:44 BUN 12 mg/dL (7-18) 09/14/21 04:44 Creatinine 1.01 mg/dL (0.55-1.02) 09/14/21 04:44 Est GFR (MDRD) Af Amer > 60 (>60) 09/14/21 04:44 Est GFR (MDRD) Non-Af 56 (>60) L 09/14/21 04:44 Glucose 87 mg/dL (65-99) 09/14/21 04:44 Calcium 8.1 mg/dL (8.5-10.1) L 09/14/21 04:44 Corrected Calcium 9.3 mg/dL (8.5-10.1) 09/13/21 04:00 Iron 32 ug/dL (50-175) L 09/11/21 08:19 Transferrin 184 mg/dL (202-364) L 09/11/21 08:19 Ferritin 77 ng/mL (8-252) 09/11/21 08:19 Total Bilirubin 0.60 mg/dL (0.2-1.0) 09/13/21 04:00 AST 20 Units/L (15-37) 09/13/21 04:00 ALT 17 Units/L (12-78) 09/13/21 04:00 Alkaline Phosphatase 59 Units/L (46-116) 09/13/21 04:00 Creatine Kinase 24 Units/L (26-192) L 09/13/21 04:00 CK-MB (CK-2) < 1.0 ng/mL (0-4.0) 09/13/21 04:00 CK/CKMB % Calc 4.2 % (<4) 09/13/21 04:00 Troponin I High Sens 128.2 ng/L (4.0-60.0) H* 09/13/21 04:00 B-Natriuretic Peptide 217 pg/mL (0-79) H 09/10/21 21:45 Total Protein 5.6 g/dL (6.4-8.2) L 09/13/21 04:00 Albumin 2.2 g/dL (3.4-5.0) L 09/13/21 04:00 Globulin 3.4 g/dL (2.5-4.5) 09/13/21 04:00 Albumin/Globulin Ratio 0.6 Ratio (1.1-2.1) L 09/13/21 04:00 Vitamin B12 609 pg/mL (193-986) 09/11/21 08:19 Folate > 20.0 ng/mL (>8.6) 09/11/21 08:19 Specimen Type Catherized urine 09/11/21 01:56 Urine Color Yellow (YELLOW) 09/11/21 01:56 Urine Appearance Clear (CLEAR) 09/11/21 01:56 Urine pH 5.0 (5.0 - 8.0) 09/11/21 01:56 Ur Specific [place] 1.015 (1.000-1.030) 09/11/21 01:56 Urine Protein 1+ (NEGATIVE) 09/11/21 01:56 Urine Glucose (UA) Negative (NEGATIVE) 09/11/21 01:56 Urine Ketones Negative (NEGATIVE) 09/11/21 01:56 Urine Occult Blood Negative (NEGATIVE) 09/11/21 01:56 Urine Nitrite Negative (NEGATIVE) 09/11/21 01:56 Urine Bilirubin Negative (NEGATIVE) 09/11/21 01:56 Urine Urobilinogen Normal (NORMAL) 09/11/21 01:56 Ur Leukocyte Esterase 1+ (NEGATIVE) 09/11/21 01:56 Urine RBC None seen /HPF (0-3) 09/11/21 01:56 Urine WBC 5-10 /HPF (0-5) A 09/11/21 01:56 Ur Squamous Epith Cells Negative /HPF (NEGATIVE) 09/11/21 01:56 Urine Bacteria 2+ /HPF (NEGATIVE) 09/11/21 01:56 Ur Culture Indicated? Yes/culture set up 09/11/21 01:56 Stool Description 30g formed brown 09/11/21 10:45 Stool Description 30g formed brown 09/11/21 10:45 Stool Sodium Cancelled 09/11/21 10:45 Stool Potassium Cancelled 09/11/21 10:45 Stool Chloride Cancelled 09/11/21 10:45 Stl Occult Blood (IFOB) Positive (NEGATIVE) A 09/11/21 10:45 Stl C. diff Tox B Gene Negative (NEGATIVE) 09/11/21 10:45 Stl C. diff [id number] Presumptive negative (NEGATIVE) 09/11/21 10:45 Cryptosporid parvum Ag Negative (NEGATIVE) 09/11/21 10:45 Giardia lamblia Ag Negative (NEGATIVE) 09/11/21 10:45 SARS CoV-2 RNA Rapid JOSE CARLOS Negative (NEGATIVE) 09/11/21 04:08 Blood Type A POSITIVE 09/12/21 08:15 Antibody Screen Negative 09/12/21 08:15 Crossmatch See Detail 09/12/21 08:15 Reason For Visit: ELEVATED CARDIAC ENZYMES, MILD DEHYDRATION, MILD Discharge Date Discharge Date: 09/14/21 Discharge Diagnosis All Active Problems (Updated 09/21/21 @ 14:19 by Priscilla Lowe) Anemia (Chronic) Elevation of cardiac enzymes (Chronic) Urinary tract infection (Acute) Acute alteration in mental status (Acute) Mild congestive heart failure (Chronic) Dehydration, mild (Acute) CAD (coronary artery disease) (Chronic) Hyperchloremia (Acute) CAD (coronary artery disease) (Chronic) Hyperkalemia (Acute) Depression (Chronic) Restless leg syndrome (Chronic) Congestive heart failure (Chronic) COPD (chronic obstructive pulmonary disease) with acute bronchitis (Chronic) Chronic kidney disease (Chronic) Plan of Treatment: Continue with present treatment and follow up plan. Pt is to keep follow up appointment as instructed and take medications as ordered. Discharge Medications Discharge Medications: levofloxacin [From Levaquin] Allergy (Verified 07/11/19 23:02) CONTINUE taking the following medications albuterol sulfate 2.5 mg CONTINUOUS NEBULIZATION Q6H PRN 09/11/21 [History] gabapentin 200 mg PO BID 09/11/21 [History] New Prescriptions carvedilol 3.125 mg PO BID 30 Days #60 tab 09/14/21 [Rx] doxycycline monohydrate 100 mg PO BID 5 Days #10 cap 09/14/21 [Rx] Follow up and Referral Follow Up: 1 Week (PCP) Discharge Disposition Discharge Disposition: home Discharge Condition: stable Discharge Plan Discharge Plan Hospital Course: Ms Shane is a 86y/o female with multiple comorbidities presented with generalized weakness, lethargy and poor urine output. She has a hx of CAD, CHF, HTN and dementia. Patient was recently trasferred to [facility] for further cardiac work up due to elevated cardiac enzymes. Cardiology evaluated the patient and recommended medical management as patient is high risk for any intervention. She was also seen by GI there and could not undergo EGD due to low BP. Patient was started on DAPT with asa and plavix and was told to continue taking plavix till 09/17/21 and then take asa alone. During this admission, patient was found to have UTI and anemia. She was started on IV antibiotics. She also received 2 units of PRBCs and hemoglobin was monitored closely. Patient is high risk for EGD due to underlying cardiac condition. She was doing well, tolerating PO intake. She also worked with PT as tolerated. Patient was stable for discharge and will f/u with cardiology and PCP as scheduled. Patient was previously receiving home hospice services and can resume at discharge. Patient Disposition: 50 DISCHARGED TO HOSPICE -HOME Condition: Stable Health Concerns: Post Hospitalization: new medications and changes needed to prevent readmission or further decline. Pt educated and given instructions on all concerns. Care Plan Goals: Problem: Pain/Alteration in Comfort Goal: Improve/ Resolve Pain; Achieve Pain Tolerance Instructions: Take pain medications as prescribed. Contact your primary care provider if your pain is unrelieved or worsens. Follow up with primary care provider as directed. Plan of Treatment: Continue with present treatment and follow up plan. Pt is to keep follow up appointment as instructed and take medications as ordered. Prescriptions: Continued venlafaxine 75 mg tablet 75 mg PO DAILY RF: 0 pravastatin 40 mg tablet 40 mg PO HS RF: 0 famotidine 40 mg tablet 40 mg PO DAILY RF: 0 pantoprazole 40 mg tablet,delayed release (DR/EC) 40 mg PO BID RF: 0 clopidogrel 75 mg tablet 75 mg PO DAILY RF: 0 ropinirole 0.5 mg tablet 0.5 mg PO TID RF: 0 amiodarone 200 mg Tablet 200 mg PO DAILY RF: 0 montelukast 10 mg tablet 10 mg PO DAILY RF: 0 furosemide 20 mg tablet 20 mg PO DAILY RF: 0 Hemocyte-Plus 106 mg iron- 1 mg Capsule 1 cap PO DAILY RF: 0 gabapentin 100 mg capsule 200 mg PO BID RF: 0 albuterol sulfate 2.5 mg /3 mL (0.083 %) Solution For Nebulization 2.5 mg continuous nebulization Q6H PRNRF: 0 Changed carvedilol 3.125 mg tablet 3.125 mg PO BID 30 Days Qty: 60 RF: 0 Discontinued tamsulosin 0.4 mg capsule 0.4 mg PO DAILY RF: 0 quetiapine [Seroquel] 25 mg Tablet 25 mg PO HS RF: 0 valsartan [Diovan] 40 mg tablet 40 mg PO DAILY RF: 0 Instructions Instructions: Anemia, Preventing Iron Deficiency Anemia, Adult, Delirium Tremens, [id number], Urinary Tract Infection, Adult, [id number], Iron Deficiency Anemia, Adult, Rhbd-ss-Ezid Activity Restrictions/Additional Instructions: Monitor blood pressure daily Coreg dose decreased to 3.125 mg twice a day, do not give if BP less than 90/60 Follow up with cardiology and GI outpatient as scheduled Stop tamsulosin if blood pressure low Continue clopidogrel till 09/17/21 then stop and continue aspirin 81 mg only Stand Alone Forms: Excuse From Work or School, Precautions for [facility], Patient Portal, Social Distancing
[2021-09-14 12:18] VITALS: BP 94/57
== END 2021-09-14 15:00 | disposition home or self-care (01) ==
LOC: ER 20:02 → MED/SURG 20:02
PROVIDERS: ADMIT Internal Medicine; ATTEND Internal Medicine
DX: Z20.822 Contact with and (suspected) exposure to COVID-19; N39.0 Urinary tract infection, site not specified; E86.0 Dehydration; J44.0 Chronic obstructive pulmonary disease with (acute) lower respiratory infection; R53.1 Weakness; J20.8 Acute bronchitis due to other specified organisms; D50.8 Other iron deficiency anemias; R41.82 Altered mental status, unspecified; I25.10 Atherosclerotic heart disease of native coronary artery without angina pectoris; I48.91 Unspecified atrial fibrillation; I11.0 Hypertensive heart disease with heart failure; R77.8 Other specified abnormalities of plasma proteins; R74.8 Abnormal levels of other serum enzymes; N18.9 Chronic kidney disease, unspecified; R26.89 Other abnormalities of gait and mobility; B96.89 Other specified bacterial agents as the cause of diseases classified elsewhere; I50.9 Heart failure, unspecified

== ENCOUNTER 2022-05-12 07:31 | Inpatient (IN) ==
--- NOTE | 2022-05-12 08:09 | DR.SOBA ---
HPI Time Seen Time Seen by Provider: 05/12/22 08:08 Primary Care Physician Primary Care Physician: LISA Complaints Chief Complaint Doctors Comments: 86 y/o female, ill x few days. Presents with worsening dyspnea. Has a cough, slightly productive, with wheezing and shortness of breath. Denies fever, chills, chest pain, nausea, vomiting, diarrhea or urinary issues. Started a Zpak yesterday, + h/o COPD, on home O2. Used a jet neb treatment [employer]. Chief Complaint:: PATIENT C/O SHORTNESS OF BREATH, COUGHING, WHEEZING THIS MO RNING. PATIENT HAS BEEN HAVING URI SYMPTOMS FOR THE PAST FEW DAYS. PATIENT WAS STARTED ON A Z-MATTHIEU ON 05/11. PATIENT STATES WHEN SHE WOKE UP THIS MORNING SHE JUST FELT MORE SHORT OF BREATH THAN NORMAL. PATIENT STATES SHE WEARS HOME O2 AT 2 LPM AND SHE TOOK A BRETAHING TREATMENT PRIOR TO EMS ARRIVAL. PATIENT ALSO STATES SHE IS HAVING A PRODUCTIVE COUGH (WHITE IN COLOR). COVID-19 Coronavirus risk:travel/contact w/high risk person: No Has patient experienced Coronavirus symptoms: Yes Coronavirus symptoms experienced: Coughing and Shortness of Breath Source History Provided: Patient and EMS Mode of Arrival Mode of Arrival: EMS Timing Onset of Chief Complaint: 05/05/22 PMH PMH Past Medical History: Yes Past Medical History: Anemia, Arthritis, Asthma, CHF, COPD, Coronary Artery Disease, Dyslipidemia, GERD, Hypertension and GA Past Surgical History: Yes Surgical History: Angioplasty/Stents, Cholecystectomy, Hysterectomy, Mastectomy, Tonsillectomy and Other Family History History of Family Medical Conditions: Yes Family Medical History: Diabetes Mellitus, Cancer, GA, Coronary Artery Disease, Sudden Cardiac and Hypertension Social History Does patient currently use any type of tobacco product: Yes Have you used tobacco products in the last 12 months: Yes Type of Tobacco Use: Cigarettes Alcohol Use: None Do you use any recreational Drugs:: No Lives With: Alone Lives Where: Home Travel Risk Coronavirus risk:travel/contact w/high risk person: No Has patient experienced Coronavirus symptoms: Yes Coronavirus symptoms experienced: Coughing and Shortness of Breath Infectious screening In the last 2 months have you had wt loss of >10#?: NO Have you had fever, night sweats or hemotysis?: No Have you traveled outside the country in the last 6 months?: No Isolation: Standard ROS Review of Systems Constitutional: Weakness Eyes: No Symptoms Reported ENTM: No Symptoms Reported Respiratoy: Moist Cough, Short of Breath and Wheezing Cardiovascular: No Symptoms Reported Gastrointestinal/Abdominal: No Symptoms Reported Genitourinary: No Symptoms Reported Neurological: No Symptoms Reported Musculoskeletal: No Symptoms Reported Integumentary: No Symptoms Reported Hematologic/Lymphatic: No Symptoms Reported Psychiatric: No Symptoms Reported All Other Systems: Reviewed and Negative PE Vital Signs Vitals: Temperature 98.0 F Pulse Rate 65 Respiratory Rate 18 Blood Pressure [Left Arm] 111/51 Blood Pressure [Right Arm] 164/72 Blood Pressure [Right Thigh] 188/76 Blood Pressure [Left Thigh] 172/68 Blood Pressure [Left Calf] 126/56 Blood Pressure [Left Arm] 113/53 Blood Pressure [Right Calf] 168/77 Blood Pressure [Right Arm] 117/53 Blood Pressure 201/83 O2 Sat by Pulse Oximetry 99 General General Appearance: Alert and In No Apparent Distress Eyes Eye exam: PERRL and EOMI ENT ENT Exam: Normal Exam and Mucous Membranes Moist Neck Neck Exam: Normal Inspection Chest Chest Inspection: Normal Inspection Respiratory Respiratory Exam: Other (+ bilateral exp wheezing, + bilateral rhonchi) Cardiovascular Cardiovascular Exam: Regular Rate, Normal Rhythm and Normal Heart Sounds Extremities Extremities Exam: Normal Inspection and Full ROM; negative Edema Neurologic Neurological Exam: Alert, Oriented X3 and CN II-XII Intact; negative Motor Sensory Deficit Skin Skin Exam: Warm and Dry MDM Differential Diagnosis Differential Diagnosis: CHF, COPD and Pneumonia COURSE Treatment Treatment: Pt with cough, COPD, dyspnea. W/u initiated. Pt given IV solumedrol, additional duoneb treatment. 1050 - pt remains stable. W/u shows pt + for RSV. CXR without infiltrate. Labs acceptable. Recommend admission for further treatment of her COPD exacerbation, probably due to acute RSV infection. discussed with Dr Lowe, for Dr Alba (he is in a meeting), accepts the admission. ROR Labs Reviewed Laboratory Results Reviewed?: Yes Result Diagrams: 05/12/22 08:24 05/12/22 08:24 Laboratory: WBC 5.2 X10^3/uL (3.6-10.0) 05/12/22 08:24 RBC 3.83 X10^6/uL (3.5-5.4) 05/12/22 08:24 Hgb 11.0 g/dL (12.0-16.0) L 05/12/22 08:24 Hct 32.7 % (36.0-47.0) L 05/12/22 08:24 MCV 85.2 fL (80.0-100.0) 05/12/22 08:24 MCH 28.8 pg (27.0-34.0) 05/12/22 08:24 MCHC 33.8 g/dL (33.0-35.0) 05/12/22 08:24 RDW 15.7 % (11.6-16.5) 05/12/22 08:24 Plt Count 249 X10^3/uL (150.0-450.0) 05/12/22 08:24 MPV 9.8 fL (7.4-11.0) 05/12/22 08:24 Neut % (Auto) 55.9 % (42.0-75.0) 05/12/22 08:24 Lymph % (Auto) 22.3 % (21.0-51.0) 05/12/22 08:24 [place] % (Auto) 17.2 % (0.0-13.0) H 05/12/22 08:24 Eos % (Auto) 2.5 % (0.9-2.9) 05/12/22 08:24 Baso % (Auto) 2.1 % (0.2-1.0) H 05/12/22 08:24 Neut # (Auto) 2.9 x10^3/uL (2.2-4.8) 05/12/22 08:24 Lymph # (Auto) 1.2 X10^3/uL (1.3-2.9) L 05/12/22 08:24 [place] # (Auto) 0.9 x10^3/uL (0.3-0.8) H 05/12/22 08:24 Eos # (Auto) 0.1 x10^3/uL (0.0-0.2) 05/12/22 08:24 Baso # (Auto) 0.1 X10^3/uL (0.0-0.1) 05/12/22 08:24 Absolute Nucleated RBC 0.2 /100WBC 05/12/22 08:24 Sodium 146 mmol/L (136-145) H 05/12/22 08:24 Corrected Sodium TNP 05/12/22 08:24 Potassium 4.2 mmol/L (3.5-5.1) 05/12/22 08:24 Chloride 106 mmol/L (98-107) 05/12/22 08:24 Carbon Dioxide 32.7 mmol/L (21-32) H 05/12/22 08:24 BUN 21 mg/dL (7-18) H 05/12/22 08:24 Creatinine 1.55 mg/dL (0.55-1.02) H 05/12/22 08:24 Est GFR (MDRD) Af Amer 41 (>60) L 05/12/22 08:24 Est GFR (MDRD) Non-Af 34 (>60) L 05/12/22 08:24 Glucose 99 mg/dL (65-99) 05/12/22 08:24 Calcium 8.8 mg/dL (8.5-10.1) 05/12/22 08:24 Corrected Calcium TNP 05/12/22 08:24 Total Bilirubin 0.20 mg/dL (0.2-1.0) 05/12/22 08:24 AST 14 Units/L (15-37) L 05/12/22 08:24 ALT 17 Units/L (12-78) 05/12/22 08:24 Alkaline Phosphatase 67 Units/L (46-116) 05/12/22 08:24 Troponin I High Sens 35.8 ng/L (4.0-60.0) 05/12/22 08:24 B-Natriuretic Peptide 228 pg/mL (0-79) H 05/12/22 08:24 Total Protein 6.8 g/dL (6.4-8.2) 05/12/22 08:24 Albumin 3.4 g/dL (3.4-5.0) 05/12/22 08:24 Globulin 3.4 g/dL (2.5-4.5) 05/12/22 08:24 Albumin/Globulin Ratio 1.0 Ratio (1.1-2.1) L 05/12/22 08:24 SARS-CoV-2 (PCR) Negative (NEGATIVE) 05/12/22 08:20 Influenza Type A (PCR) Negative (NEGATIVE) 11/03/22 08:20 Influenza Type B (PCR) Negative (NEGATIVE) 05/12/22 08:20 RSV (PCR) Positive (NEGATIVE) A 05/12/22 08:20 + RSV XRAY XRAY Interpreted by: Both X-ray Results: + COPD changes, no infiltrate. EKG Rate: 71 [place]: Normal Rhythm: NSR ST: Nonsp Opioid Opioid Risk Tool Age (Michael box if 16-45): No History of Preadolescent Sexual Abuse: No Total: 0 Total Score Risk Category: Low Risk Copyright: [facility] predicting aberrant behaviors Discharge Plan Diagnosis Discharge Problem: RSV infection, COPD exacerbation Discharge Plan Patient Disposition: ADMITTED INPATIENT Condition: Stable Prescriptions: No Action venlafaxine 75 mg tablet 75 mg PO DAILY pravastatin 40 mg tablet 40 mg PO HS famotidine 40 mg tablet 40 mg PO BID pantoprazole 40 mg tablet,delayed release (DR/EC) 40 mg PO BID clopidogrel 75 mg tablet 75 mg PO HS ropinirole 0.5 mg tablet 0.5 mg PO TID amiodarone 200 mg Tablet 100 mg PO DAILY montelukast 10 mg tablet 10 mg PO DAILY furosemide 20 mg tablet 20 mg PO DAILY Hemocyte-Plus 106 mg iron- 1 mg Capsule 1 cap PO DAILY gabapentin 100 mg capsule 200 mg PO BID Label Comments: TAKE 2 CAPSULES BY MOUTH TWICE DAILY albuterol sulfate 2.5 mg /3 mL (0.083 %) Solution For Nebulization 2.5 mg continuous nebulization Q6H PRN carvedilol 3.125 mg tablet 3.125 mg PO BID 30 Days Qty: 60 0RF Label Comments: TAKE 2 TABLETS BY MOUTH TWICE DAILY ondansetron HCl [Zofran] 4 mg Tablet 1 mg PO Q8H PRN acetaminophen-codeine 300-30 mg Tablet 1 tab PO Q6H PRN aspirin 81 mg Tablet,Delayed Release (Dr/Ec) 81 mg PO DAILY ferrous sulfate 325 mg (65 mg iron) Tablet 325 mg PO DAILY docusate sodium 100 mg Capsule 10 mg PO BID PRN azithromycin 500 mg tablet 1 tab PO QDAY memantine 10 mg tablet 1 tab PO BID donepezil 10 mg tablet,disintegrating 1 tab PO QDAY Culturelle Probiotic-Prebiotic 1 billion cell- 1 gram-15 mg Tablet,Chewable 1 tab PO DAILY Health Concerns: Post Hospitalization: new medications and changes needed to prevent readmission or further decline. Pt educated and given instructions on all concerns. Plan of Treatment: Continue with present treatment and follow up plan. Pt is to keep follow up appointment as instructed and take medications as ordered. Orders to Discharge Patient Discharge Orders: Transfer (Routine); Ordered 05/12/22 Ordered By: Avi Lee Follow ups/Referrals Follow ups/Referrals: Priscilla Lowe [Primary Care Provider] - 3 days
[2022-05-12] MEDS ORDERED: SOLU-Medrol 125 MG VIAL IVP ONE (08:42)
[2022-05-12] MEDS ORDERED: DUONEB 0.5 MG/3 MG (3 mL) NEB ONE (08:42)
[2022-05-12 08:44] LABS: BASOPHILS # (AUTO) 0.1 X10^3/uL (0.0-0.1); BASOPHILS % (AUTO) 2.1 % (0.2-1.0); EOSINOPHILS # (AUTO) 0.1 x10^3/uL (0.0-0.2); EOSINOPHILS % (AUTO) 2.5 % (0.9-2.9); HEMATOCRIT 32.7 % (36.0-47.0); LYMPHOCYTES # (AUTO) 1.2 X10^3/uL (1.3-2.9); LYMPHOCYTES % (AUTO) 22.3 % (21.0-51.0); MEAN CORPUSCULAR HEMOGLOBIN 28.8 pg (27.0-34.0); MEAN CORPUSCULAR HGB CONC 33.8 g/dL (33.0-35.0); MEAN CORPUSCULAR VOLUME 85.2 fL (80.0-100.0); MEAN PLATELET VOLUME 9.8 fL (7.4-11.0); MONOCYTES # (AUTO) 0.9 x10^3/uL (0.3-0.8); MONOCYTES % (AUTO) 17.2 % (0.0-13.0); NEUTROPHILS # (AUTO) 2.9 x10^3/uL (2.2-4.8); NEUTROPHILS % (AUTO) 55.9 % (42.0-75.0); RED BLOOD COUNT 3.83 X10^6/uL (3.5-5.4); RED CELL DISTRIBUTION WIDTH 15.7 % (11.6-16.5); WHITE BLOOD COUNT 5.2 X10^3/uL (3.6-10.0)
[2022-05-12 08:49] LABS: ALANINE AMINOTRANSFERASE 17 Units/L (12-78); ALBUMIN 3.4 g/dL (3.4-5.0); ALKALINE PHOSPHATASE 67 Units/L (46-116); ASPARTATE AMINO TRANSFERASE 14 Units/L (15-37); BLOOD UREA NITROGEN 21 mg/dL (7-18); CALCIUM 8.8 mg/dL (8.5-10.1); CARBON DIOXIDE 32.7 mmol/L (21-32); CHLORIDE 106 mmol/L (98-107); CREATININE 1.55 mg/dL (0.55-1.02); SODIUM 146 mmol/L (136-145); TOTAL PROTEIN 6.8 g/dL (6.4-8.2); eGFR NON BLACK RACES 34 (>60)
--- NOTE | 2022-05-12 09:09 | RAD ---
HISTORYCough SOBSTUDYAP chestCOMPARISONMarch 2021FINDINGSStable normal heart size with no acute pulmonary, hilar or pleural abnormality. Postsurgical changes left breast/axilla.IMPRESSIONNo change; no acute chest findings.Electronically signed by: DEVANG BERNAL (May 12, 2022 09:07:32)
[2022-05-12] MEDS ORDERED: SOLU-Medrol 125 MG VIAL ONE (09:22)
[2022-05-12] MEDS ORDERED: LOPRESSOR INJ 5 MG AMP IVP ONE (10:40)
[2022-05-12] MEDS ORDERED: LOPRESSOR INJ 5 MG AMP ONE (10:48)
[2022-05-12] MEDS ORDERED: APRESOLINE INJ 20 MG VIAL ONE (11:28)
[2022-05-12] MEDS: APRESOLINE INJ 20 MG VIAL IVP PRN (11:32)
[2022-05-12] MEDS ORDERED: PROVENTIL NEB TX 0.083% 2.5MG/ 3ML NEB SCH (13:00)
[2022-05-12] MEDS ORDERED: NYSTATIN POWDER TOP SCH (15:00)
[2022-05-12] MEDS ORDERED: PROVENTIL NEB TX 0.083% 2.5MG/ 3ML NEB PRN (15:43)
[2022-05-12] MEDS ORDERED: TYLENOL #3 TAB (W/CODEINE) PO PRN (15:43)
[2022-05-12] MEDS ORDERED: COLACE CAP 100 MG PO PRN (15:43)
[2022-05-12] MEDS: REQUIP PO SCH ×2 (16:20→21:47)
[2022-05-12] MEDS: SOLU-Medrol 40 MG VIAL IVP SCH ×2 (16:21→23:14)
[2022-05-12] MEDS: PROVENTIL NEB TX 0.083% 2.5MG/ 3ML NEB SCH ×2 (16:25→21:22)
[2022-05-12] MEDS: LOVENOX INJ 30 MG SYR SC SCH (16:35)
[2022-05-12] MEDS: ARICEPT TAB 10 MG PO SCH (16:35)
[2022-05-12] MEDS: NovoLIN R (or HumuLIN R) SC PRN ×2 (17:43→20:25)
[2022-05-12] MEDS: NEURONTIN CAP 100 MG PO SCH (20:11)
[2022-05-12] MEDS: NAMENDA TAB 10 MG PO SCH (20:13)
[2022-05-12] MEDS: COREG TAB 3.125 MG PO SCH (20:13)
[2022-05-12] MEDS: PLAVIX PO SCH (20:15)
[2022-05-12] MEDS: PRAVACHOL PO SCH (20:16)
[2022-05-12] MEDS: PROTONIX TAB 40 MG PO SCH (20:16)
[2022-05-12] MEDS ORDERED: SOLU-Medrol 40 MG VIAL IVP SCH (21:00)
[2022-05-13] MEDS: PROVENTIL NEB TX 0.083% 2.5MG/ 3ML NEB SCH ×6 (00:35→21:00)
[2022-05-13] MEDS: REQUIP PO SCH ×3 (05:04→21:10)
[2022-05-13] MEDS: SOLU-Medrol 40 MG VIAL IVP SCH ×3 (05:05→21:08)
[2022-05-13 05:14] LABS: BASOPHILS # (AUTO) 0.1 X10^3/uL (0.0-0.1); BASOPHILS % (AUTO) 0.7 % (0.2-1.0); EOSINOPHILS % (AUTO) 0.1 % (0.9-2.9); HEMATOCRIT 31.7 % (36.0-47.0); HEMOGLOBIN 10.6 g/dL (12.0-16.0); LYMPHOCYTES # (AUTO) 0.9 X10^3/uL (1.3-2.9); LYMPHOCYTES % (AUTO) 9.5 % (21.0-51.0); MEAN CORPUSCULAR HEMOGLOBIN 28.3 pg (27.0-34.0); MEAN CORPUSCULAR HGB CONC 33.3 g/dL (33.0-35.0); MEAN CORPUSCULAR VOLUME 84.9 fL (80.0-100.0); MEAN PLATELET VOLUME 10.1 fL (7.4-11.0); MONOCYTES # (AUTO) 0.4 x10^3/uL (0.3-0.8); MONOCYTES % (AUTO) 4.6 % (0.0-13.0); NEUTROPHILS # (AUTO) 7.8 x10^3/uL (2.2-4.8); NEUTROPHILS % (AUTO) 85.1 % (42.0-75.0); RED BLOOD COUNT 3.73 X10^6/uL (3.5-5.4); RED CELL DISTRIBUTION WIDTH 14.9 % (11.6-16.5); WHITE BLOOD COUNT 9.2 X10^3/uL (3.6-10.0)
[2022-05-13 05:25] LABS: ALBUMIN 3.2 g/dL (3.4-5.0); CALCIUM 8.8 mg/dL (8.5-10.1); CARBON DIOXIDE 30.4 mmol/L (21-32); COR CA(FOR HYPOALB) 9.4 mg/dL (8.5-10.1); CREATININE 1.56 mg/dL (0.55-1.02); TOTAL PROTEIN 6.6 g/dL (6.4-8.2)
[2022-05-13] MEDS: NEURONTIN CAP 100 MG PO SCH ×2 (08:25→21:08)
[2022-05-13] MEDS: ARICEPT TAB 10 MG PO SCH (08:25)
[2022-05-13] MEDS: COREG TAB 3.125 MG PO SCH ×2 (08:25→21:09)
[2022-05-13] MEDS: PEPCID TAB 20 MG PO SCH (08:25)
[2022-05-13] MEDS: CORDARONE TAB 200 MG PO SCH (08:25)
[2022-05-13] MEDS: SINGULAIR TAB 10 MG PO SCH (08:25)
[2022-05-13] MEDS: PROTONIX TAB 40 MG PO SCH ×2 (08:26→21:10)
[2022-05-13] MEDS: NAMENDA TAB 10 MG PO SCH ×2 (08:26→21:10)
[2022-05-13] MEDS: FERROUS GLUCONATE PO SCH (08:26)
[2022-05-13] MEDS: ASPIRIN EC 81 MG PO SCH (08:26)
[2022-05-13] MEDS: EFFEXOR XR 37.5 MG CAP 24-HR PO SCH (08:26)
[2022-05-13] MEDS: LOVENOX INJ 30 MG SYR SC SCH (08:26)
--- NOTE | 2022-05-13 08:38 | DR.H&P ---
H&P History & Physical for Day of: H&P Date: 05/13/22 Chief Complaint Chief Complaint: worsening dyspnea Allergies Allergies Allergy/AdvReac Type Severity Reaction Status Date / Time levofloxacin [From Levaquin] Allergy Verified 07/11/19 23:02 History of Present Illness History of Present Illness: Ms Shane is a 86y/o female with a PMH of CAD, CHF, HTN, HLD, GERD, COPD on home O2 presented with worsening dyspnea. Patient reports increased cough and wheezing. Her daughter was sick prior to her getting sick. Denies fever or chills. Patient uses 2-3L O2 at home. She had been using her nebs but breathing was not improving. She was treated outpatient with z- pack. In the ER, she was positive for RSV, CXR did not show acute infection. She was admitted for RSV infection and COPD exacerbation. She was started on IV solumedrol, nebs and supportive care. Labs/imaging reviewed Plan: Patient currently on 2L O2, continue nebs and solumedrol. Resume home medications. Patient did have some hyperglycemia with steroids, add Insulin SSI. Add Vistaril for anxiety. Add Pulmicort nebs. Repeat CXR in the AM. PT/OT as tolerated. Monitor AM labs. Past Medical History Past Medical History: Anemia, Arthritis, Asthma, CHF, COPD, Coronary Artery Disease, Dyslipidemia, GERD, Hypertension and NM Additional Medical History: Breast and uterine cancer Past Surgical History Surgical History: Angioplasty/Stents, Cholecystectomy, Hysterectomy, Tonsil lectomy and Other Family History Family Medical History: Diabetes Mellitus, Cancer, NM, Coronary Artery Disease, Sudden Cardiac and Hypertension Social History Does patient currently use any type of tobacco product: Yes Have you used tobacco products in the last 12 months: Yes Type of Tobacco Use: Cigarettes Does any household member use tobacco: No Alcohol Use: None Drug Use: None Medications Home Medications: levofloxacin [From Levaquin] Allergy (Verified 07/11/19 23:02) CONTINUE taking the following medications B.coagulan,subtilis 1 bill. cell-inulin 1 gram-vit C 15 mg chew tablet (Culturelle Probiotic-Prebiotic) 1 tab PO DAILY 05/12/22 [History] acetaminophen 300 mg-codeine 30 mg tablet 1 tab PO Q6H PRN 05/12/22 [History] aspirin 81 mg tablet,delayed release 81 mg PO DAILY 05/12/22 [History] azithromycin 500 mg tablet 1 tab PO QDAY 05/12/22 [History] docusate sodium 100 mg capsule 10 mg PO BID PRN 05/12/22 [History] donepezil 10 mg disintegrating tablet 1 tab PO QDAY 05/12/22 [History] ferrous sulfate 325 mg (65 mg iron) tablet 325 mg PO DAILY 05/12/22 [History] memantine 10 mg tablet 1 tab PO BID 05/12/22 [History] ondansetron HCl 4 mg tablet 1 mg PO Q8H PRN 05/12/22 [History] Labs Result Diagrams: 05/14/22 04:51 05/14/22 04:51 Labs: Laboratory WBC 9.2 X10^3/uL (3.6-10.0) 05/13/22 04:25 RBC 3.73 X10^6/uL (3.5-5.4) 05/13/22 04:25 Hgb 10.6 g/dL (12.0-16.0) L 05/13/22 04:25 Hct 31.7 % (36.0-47.0) L 05/13/22 04:25 MCV 84.9 fL (80.0-100.0) 05/13/22 04:25 MCH 28.3 pg (27.0-34.0) 05/13/22 04:25 MCHC 33.3 g/dL (33.0-35.0) 05/13/22 04:25 RDW 14.9 % (11.6-16.5) 05/13/22 04:25 Plt Count 263 X10^3/uL (150.0-450.0) 05/13/22 04:25 MPV 10.1 fL (7.4-11.0) 05/13/22 04:25 Neut % (Auto) 85.1 % (42.0-75.0) H 05/13/22 04:25 Lymph % (Auto) 9.5 % (21.0-51.0) L 05/13/22 04:25 [place] % (Auto) 4.6 % (0.0-13.0) 05/13/22 04:25 Eos % (Auto) 0.1 % (0.9-2.9) L 05/13/22 04:25 Baso % (Auto) 0.7 % (0.2-1.0) 05/13/22 04:25 Neut # (Auto) 7.8 x10^3/uL (2.2-4.8) H 05/13/22 04:25 Lymph # (Auto) 0.9 X10^3/uL (1.3-2.9) L 05/13/22 04:25 [place] # (Auto) 0.4 x10^3/uL (0.3-0.8) 05/13/22 04:25 Eos # (Auto) 0.0 x10^3/uL (0.0-0.2) 05/13/22 04:25 Baso # (Auto) 0.1 X10^3/uL (0.0-0.1) 05/13/22 04:25 Absolute Nucleated RBC 0.1 /100WBC 05/13/22 04:25 Sodium 144 mmol/L (136-145) 05/13/22 04:25 Corrected Sodium 145 mmol/L (136-145) 05/13/22 04:25 Potassium 4.7 mmol/L (3.5-5.1) 05/13/22 04:25 Chloride 104 mmol/L (98-107) 05/13/22 04:25 Carbon Dioxide 30.4 mmol/L (21-32) 05/13/22 04:25 BUN 29 mg/dL (7-18) H 05/13/22 04:25 Creatinine 1.56 mg/dL (0.55-1.02) H 05/13/22 04:25 Est GFR (MDRD) Af Amer 41 (>60) L 05/13/22 04:25 Est GFR (MDRD) Non-Af 34 (>60) L 05/13/22 04:25 Glucose 137 mg/dL (65-99) H 05/13/22 04:25 POC Glucose (mg/dL) 129 mg/dL (65-99) H 05/13/22 05:19 Calcium 8.8 mg/dL (8.5-10.1) 05/13/22 04:25 Corrected Calcium 9.4 mg/dL (8.5-10.1) 05/13/22 04:25 Total Bilirubin 0.20 mg/dL (0.2-1.0) 05/13/22 04:25 AST 17 Units/L (15-37) 05/13/22 04:25 ALT 15 Units/L (12-78) 05/13/22 04:25 Alkaline Phosphatase 60 Units/L (46-116) 05/13/22 04:25 Troponin I High Sens 35.8 ng/L (4.0-60.0) 05/12/22 08:24 B-Natriuretic Peptide 228 pg/mL (0-79) H 05/12/22 08:24 Total Protein 6.6 g/dL (6.4-8.2) 05/13/22 04:25 Albumin 3.2 g/dL (3.4-5.0) L 05/13/22 04:25 Globulin 3.4 g/dL (2.5-4.5) 05/13/22 04:25 Albumin/Globulin Ratio 0.9 Ratio (1.1-2.1) L 05/13/22 04:25 SARS-CoV-2 (PCR) Negative (NEGATIVE) 05/12/22 08:20 Influenza Type A (PCR) Negative (NEGATIVE) 05/12/22 08:20 Influenza Type B (PCR) Negative (NEGATIVE) 05/12/22 08:20 RSV (PCR) Positive (NEGATIVE) A 05/12/22 08:20 Review of Systems Constitutional: Weakness Eyes: No Symptoms Reported ENT: No Symptoms Reported Respiratory: Cough, Shortness of Breath, SOB with Excertion and Sputum Cardiovascular: No Symptoms Reported Gastrointestinal: No Symptoms Reported Musculoskeletal: No Symptoms Reported Skin: No Symptoms Reported Neurological: No Symptoms Reported Physical Exam Vital Signs: Temperature 97 F Pulse Rate [Apical] 87 Pulse Rate 94 Respiratory Rate 16 Blood Pressure [Left Arm] 170/72 Blood Pressure [Right Arm] 164/72 Blood Pressure [Right Thigh] 188/76 Blood Pressure [Left Thigh] 172/68 Blood Pressure [Left Calf] 126/56 Blood Pressure [Left Arm] 113/53 Blood Pressure [Right Calf] 168/77 Blood Pressure [Right Arm] 117/53 Blood Pressure 197/77 O2 Sat by Pulse Oximetry 95 Oriented: Normal Eyes: Normal Nose: Normal Respiratory: Diminished Throughout and Wheezes Throughout Cardiovascular: Tachycardia Auscultation: Bowel Sounds: Normal Palpation: Normal Tenderness: Normal Musculoskeletal: Normal Psychiatric: Anxiety Mood Description: Calm Affect: Normal Speech Pattern: Clear and Appropriate Assessment/Plan (1) COPD exacerbation: Status: Acute (2) RSV infection: Status: Acute (3) Bronchitis: Status: Acute (4) CAD (coronary artery disease): Qualifiers: Coronary Disease-Associated Artery/Lesion type: unspecified vessel or lesion type [place] vs. transplanted heart: [place] heart Associated angina: unspecified whether angina present Qualified Code(s): I25.10 - Atherosclerotic heart disease of [place] coronary artery without angina pectoris Status: Chronic Review H&P Reviewed: Yes Patient was examined?: Yes
[2022-05-13] MEDS ORDERED: LASIX PO SCH (09:00)
[2022-05-13] MEDS: VISTARIL PO PRN ×2 (14:24→22:09)
[2022-05-13] MEDS: NovoLIN R (or HumuLIN R) SC PRN (16:30)
[2022-05-13] MEDS: PULMICORT NEB TX 0.5 MG NEB SCH ×2 (17:02→21:00)
[2022-05-13] MEDS: ROBITUSSIN DM PO PRN (18:17)
[2022-05-13] MEDS: APRESOLINE INJ 20 MG VIAL IVP PRN (19:37)
[2022-05-13] MEDS: PLAVIX PO SCH (21:09)
[2022-05-13] MEDS: PRAVACHOL PO SCH (21:10)
[2022-05-14] MEDS: ROBITUSSIN DM PO PRN (00:44)
[2022-05-14] MEDS: PROVENTIL NEB TX 0.083% 2.5MG/ 3ML NEB SCH ×7 (01:05→21:00)
[2022-05-14 05:05] LABS: ABG BASE EXCESS 5.4 mmol/L (-2.0-2.0)
[2022-05-14 05:06] LABS: ABG ALLEN TEST POS; ABG HCO3 31.1 mmol/L (22-26)
[2022-05-14] MEDS: REQUIP PO SCH ×3 (05:32→21:10)
[2022-05-14] MEDS: SOLU-Medrol 40 MG VIAL IVP SCH ×3 (05:33→21:10)
[2022-05-14] MEDS: VISTARIL PO PRN (05:34)
[2022-05-14 05:36] LABS: BASOPHILS % (AUTO) 0.2 % (0.2-1.0); HEMATOCRIT 36.6 % (36.0-47.0); LYMPHOCYTES # (AUTO) 0.7 X10^3/uL (1.3-2.9); LYMPHOCYTES % (AUTO) 4.8 % (21.0-51.0); MEAN CORPUSCULAR HGB CONC 32.7 g/dL (33.0-35.0); MEAN CORPUSCULAR VOLUME 85.5 fL (80.0-100.0); MEAN PLATELET VOLUME 9.9 fL (7.4-11.0); MONOCYTES # (AUTO) 0.9 x10^3/uL (0.3-0.8); MONOCYTES % (AUTO) 6.2 % (0.0-13.0); NEUTROPHILS # (AUTO) 13.4 x10^3/uL (2.2-4.8); NEUTROPHILS % (AUTO) 88.8 % (42.0-75.0); RED BLOOD COUNT 4.29 X10^6/uL (3.5-5.4); RED CELL DISTRIBUTION WIDTH 15.7 % (11.6-16.5); WHITE BLOOD COUNT 15.1 X10^3/uL (3.6-10.0)
[2022-05-14 05:49] LABS: ALANINE AMINOTRANSFERASE 20 Units/L (12-78); ALBUMIN 3.5 g/dL (3.4-5.0); ALKALINE PHOSPHATASE 63 Units/L (46-116); ASPARTATE AMINO TRANSFERASE 19 Units/L (15-37); BLOOD UREA NITROGEN 36 mg/dL (7-18); CHLORIDE 105 mmol/L (98-107); COR NA(FOR HYPERGLY) 146 mmol/L (136-145); CREATININE 1.59 mg/dL (0.55-1.02); SODIUM 145 mmol/L (136-145); TOTAL PROTEIN 7.1 g/dL (6.4-8.2); eGFR NON BLACK RACES 33 (>60)
[2022-05-14] MEDS: PULMICORT NEB TX 0.5 MG NEB SCH ×2 (08:41→21:00)
[2022-05-14] MEDS: NEURONTIN CAP 100 MG PO SCH ×2 (09:35→20:41)
[2022-05-14] MEDS: PROTONIX TAB 40 MG PO SCH ×2 (09:35→20:43)
[2022-05-14] MEDS: ASPIRIN EC 81 MG PO SCH (09:35)
[2022-05-14] MEDS: PEPCID TAB 20 MG PO SCH (09:35)
[2022-05-14] MEDS: FERROUS GLUCONATE PO SCH (09:35)
[2022-05-14] MEDS: ARICEPT TAB 10 MG PO SCH (09:35)
[2022-05-14] MEDS: SINGULAIR TAB 10 MG PO SCH (09:36)
[2022-05-14] MEDS: COREG TAB 3.125 MG PO SCH ×2 (09:36→20:41)
[2022-05-14] MEDS: EFFEXOR XR 37.5 MG CAP 24-HR PO SCH (09:36)
[2022-05-14] MEDS: CORDARONE TAB 200 MG PO SCH (09:36)
[2022-05-14] MEDS: LOVENOX INJ 30 MG SYR SC SCH (09:38)
[2022-05-14] MEDS: NAMENDA TAB 10 MG PO SCH ×2 (09:41→20:39)
[2022-05-14] MEDS ORDERED: ATIVAN INJ 2 MG VIAL IVP STA (10:12)
[2022-05-14] MEDS ORDERED: PROVENTIL NEB TX 0.083% 2.5MG/ 3ML ONE (10:28)
[2022-05-14] MEDS ORDERED: PROVENTIL NEB TX 0.083% 2.5MG/ 3ML NEB PRN (10:39)
--- NOTE | 2022-05-14 11:12 | PCM.PROG ---
Progress Note Progress Note for Day of Date of Exam: 05/14/22 Subjective Subjective: Patient seen at bedside, appears to be anxious. She was switched to [facility] overnight due to having respiratory distress. Patient has been having increased anxiety. She is currently on FiO2 36%. Her sats 90-92%. She is still coughing up sputum. CXR pending. Labs reviewed: WBC 15.1 Cr: 1.59 ABG 7.41/49/73/31 Plan: follow CXR. Add Zosyn, continue nebs and solumedrol. Add ativan 0.5 mg prn. Continue vistaril. Continue home medications. Wean O2 as tolerated to keep sats >88%. Continue ICU care and telemetry. Monitor AM labs/imaging. Time spent for clinical assessment, reviewing labs/imaging, physical exam, decision making and documentation greater than 45 mins. Past Medical Family Social History Allergies: Allergies levofloxacin [From Levaquin] Allergy (Verified 07/11/19 23:02) Vital Signs and I&O's Vital Signs: Temperature 98.4 F Pulse Rate [Apical] 81 Pulse Rate 108 Respiratory Rate 20 Blood Pressure [Left Arm] 164/63 Blood Pressure [Right Arm] 164/72 Blood Pressure [Right Thigh] 188/76 Blood Pressure [Left Thigh] 172/68 Blood Pressure [Left Calf] 126/56 Blood Pressure [Left Arm] 113/53 Blood Pressure [Right Calf] 168/77 Blood Pressure [Right Arm] 117/53 Blood Pressure 197/77 O2 Sat by Pulse Oximetry 91 Intake and Output: Intake & Output 05/11/22 05/12/22 05/13/22 05/14/22 23:59 23:59 23:59 23:59 Intake Total 650 / 650 910 / 910 220 / 220 Balance 650 / 650 910 / 910 220 / 220 Physical Exam Oriented: Normal Eyes: Normal Ear: Normal Nose: Normal Throat: Normal Respiratory: Generalized and Wheezes Cardiovascular: Tachycardia Auscultation: Bowel Sounds: Normal Palpation: Normal Tenderness: Normal Skin: Decreased [place] Musculoskeletal: Normal Psychiatric: Anxiety Mood Description: Anxious Affect: Normal Speech Pattern: Clear and Appropriate Laboratory and Diagnostics Result Diagrams: 05/14/22 04:51 05/14/22 04:51 Labs: Laboratory WBC 15.1 X10^3/uL (3.6-10.0) H 05/14/22 04:51 RBC 4.29 X10^6/uL (3.5-5.4) 05/14/22 04:51 Hgb 12.0 g/dL (12.0-16.0) 05/14/22 04:51 Hct 36.6 % (36.0-47.0) 05/14/22 04:51 MCV 85.5 fL (80.0-100.0) 05/14/22 04:51 MCH 28.0 pg (27.0-34.0) 05/14/22 04:51 MCHC 32.7 g/dL (33.0-35.0) L 05/14/22 04:51 RDW 15.7 % (11.6-16.5) 05/14/22 04:51 Plt Count 302 X10^3/uL (150.0-450.0) 05/14/22 04:51 MPV 9.9 fL (7.4-11.0) 05/14/22 04:51 Neut % (Auto) 88.8 % (42.0-75.0) H 05/14/22 04:51 Lymph % (Auto) 4.8 % (21.0-51.0) L 05/14/22 04:51 [place] % (Auto) 6.2 % (0.0-13.0) 05/14/22 04:51 Eos % (Auto) 0.0 % (0.9-2.9) L 05/14/22 04:51 Baso % (Auto) 0.2 % (0.2-1.0) 05/14/22 04:51 Neut # (Auto) 13.4 x10^3/uL (2.2-4.8) H 05/14/22 04:51 Lymph # (Auto) 0.7 X10^3/uL (1.3-2.9) L 05/14/22 04:51 [place] # (Auto) 0.9 x10^3/uL (0.3-0.8) H 05/14/22 04:51 Eos # (Auto) 0.0 x10^3/uL (0.0-0.2) 05/14/22 04:51 Baso # (Auto) 0.0 X10^3/uL (0.0-0.1) 05/14/22 04:51 Absolute Nucleated RBC 0.0 /100WBC 05/14/22 04:51 Sample Site Rrad 05/14/22 05:00 ABG pH 7.410 (7.35-7.45) 05/14/22 05:00 ABG pCO2 49.0 mmHg (35.0-45.0) H 05/14/22 05:00 ABG pO2 73.0 mmHg (80.0-100.0) L 05/14/22 05:00 ABG HCO3 31.1 mmol/L (22-26) H* 05/14/22 05:00 ABG O2 Saturation 95.0 % (90-100) 05/14/22 05:00 ABG Base Excess 5.4 mmol/L (-2.0-2.0) H 05/14/22 05:00 Jeff Test Pos 05/14/22 05:00 A-a Gradient 94.0 mmHg 05/14/22 05:00 FiO2 32.0 05/14/22 05:00 Blood Gas Comments Pt toro well 05/14/22 05:00 Sodium 145 mmol/L (136-145) 05/14/22 04:51 Corrected Sodium 146 mmol/L (136-145) H 05/14/22 04:51 Potassium 4.7 mmol/L (3.5-5.1) 05/14/22 04:51 Chloride 105 mmol/L (98-107) 05/14/22 04:51 Carbon Dioxide 30.0 mmol/L (21-32) 05/14/22 04:51 BUN 36 mg/dL (7-18) H 05/14/22 04:51 Creatinine 1.59 mg/dL (0.55-1.02) H 05/14/22 04:51 Est GFR (MDRD) Af Amer 40 (>60) L 05/14/22 04:51 Est GFR (MDRD) Non-Af 33 (>60) L 05/14/22 04:51 Glucose 159 mg/dL (65-99) H 05/14/22 04:51 POC Glucose (mg/dL) 132 mg/dL (65-99) H 05/14/22 05:25 Calcium 9.0 mg/dL (8.5-10.1) 05/14/22 04:51 Corrected Calcium TNP 05/14/22 04:51 Total Bilirubin 0.30 mg/dL (0.2-1.0) 05/14/22 04:51 AST 19 Units/L (15-37) 05/14/22 04:51 ALT 20 Units/L (12-78) 05/14/22 04:51 Alkaline Phosphatase 63 Units/L (46-116) 05/14/22 04:51 Troponin I High Sens 35.8 ng/L (4.0-60.0) 05/12/22 08:24 B-Natriuretic Peptide 228 pg/mL (0-79) H 05/12/22 08:24 Total Protein 7.1 g/dL (6.4-8.2) 05/14/22 04:51 Albumin 3.5 g/dL (3.4-5.0) 05/14/22 04:51 Globulin 3.6 g/dL (2.5-4.5) 05/14/22 04:51 Albumin/Globulin Ratio 1.0 Ratio (1.1-2.1) L 05/14/22 04:51 SARS-CoV-2 (PCR) Negative (NEGATIVE) 05/12/22 08:20 Influenza Type A (PCR) Negative (NEGATIVE) 05/12/22 08:20 Influenza Type B (PCR) Negative (NEGATIVE) 05/12/22 08:20 RSV (PCR) Positive (NEGATIVE) A 05/12/22 08:20 Plan (1) Acute and chronic respiratory failure: Status: Acute (2) COPD exacerbation: Status: Acute (3) RSV infection: Status: Acute (4) Bronchitis: Status: Acute (5) CAD (coronary artery disease): Status: Chronic Qualifiers: Associated angina: unspecified whether angina present Coronary Disease- Associated Artery/Lesion type: unspecified vessel or lesion type [place] vs. transplanted heart: [place] heart Qualified Code(s): I25.10 - Atherosclerotic heart disease of [place] coronary artery without angina pectoris
[2022-05-14] MEDS: ZOSYN VIAL 3.375 GRAMS 3.375 G in NS 100 ML IV 100 ML IV SCH ×3 (11:47→21:10)
[2022-05-14] MEDS: PLAVIX PO SCH (20:43)
[2022-05-14] MEDS: PRAVACHOL PO SCH (20:44)
[2022-05-14] MEDS: ATIVAN INJ 2 MG VIAL IVP PRN (22:27)
[2022-05-14 23:06] LABS: ABG ALLEN TEST POS; ABG HCO3 31.5 mmol/L (22-26)
[2022-05-15] MEDS: PROVENTIL NEB TX 0.083% 2.5MG/ 3ML NEB SCH ×6 (00:45→21:41)
[2022-05-15 01:08] LABS: ABG HCO3 29.4 mmol/L (22-26)
[2022-05-15 01:09] LABS: ABG ALLEN TEST POS
[2022-05-15 03:50] LABS: BILIRUBIN,URINE NEGATIVE (NEGATIVE); BLOOD/HEMOGLOBIN,URINE NEGATIVE (NEGATIVE); GLUCOSE, URINE NEGATIVE (NEGATIVE); KETONES,URINE NEGATIVE (NEGATIVE); LEUKOCYTE ESTERASE ,URINE NEGATIVE (NEGATIVE); NITRITES,URINE NEGATIVE (NEGATIVE); PROTEIN,URINE 3+ (NEGATIVE); UROBILINOGEN,URINE NORMAL (NORMAL)
[2022-05-15 03:52] LABS: APPEARANCE,URINE CLEAR (CLEAR); BACTERIA,URINE NEGATIVE /HPF (NEGATIVE); COLOR,URINE PALE YELLOW (YELLOW); RBC,URINE NONE SEEN /HPF (0-3); SQUAMOUS EPITHELIAL CELL,UR RARE /HPF (NEGATIVE)
[2022-05-15] MEDS: REQUIP PO SCH ×3 (05:15→21:06)
[2022-05-15] MEDS: SOLU-Medrol 40 MG VIAL IVP SCH ×3 (05:15→21:04)
[2022-05-15] MEDS: ZOSYN VIAL 3.375 GRAMS 3.375 G in NS 100 ML IV 100 ML IV SCH ×3 (05:16→21:03)
[2022-05-15 05:26] LABS: BASOPHILS % (AUTO) 0.3 % (0.2-1.0); HEMATOCRIT 31.5 % (36.0-47.0); HEMOGLOBIN 10.4 g/dL (12.0-16.0); LYMPHOCYTES # (AUTO) 0.5 X10^3/uL (1.3-2.9); LYMPHOCYTES % (AUTO) 3.7 % (21.0-51.0); MEAN CORPUSCULAR HEMOGLOBIN 28.2 pg (27.0-34.0); MEAN CORPUSCULAR VOLUME 85.5 fL (80.0-100.0); MEAN PLATELET VOLUME 9.7 fL (7.4-11.0); MONOCYTES # (AUTO) 0.7 x10^3/uL (0.3-0.8); MONOCYTES % (AUTO) 5.3 % (0.0-13.0); NEUTROPHILS # (AUTO) 11.4 x10^3/uL (2.2-4.8); NEUTROPHILS % (AUTO) 90.7 % (42.0-75.0); RED BLOOD COUNT 3.68 X10^6/uL (3.5-5.4); RED CELL DISTRIBUTION WIDTH 15.5 % (11.6-16.5); WHITE BLOOD COUNT 12.6 X10^3/uL (3.6-10.0)
[2022-05-15 05:39] LABS: ALBUMIN 3.1 g/dL (3.4-5.0); CALCIUM 8.3 mg/dL (8.5-10.1); CARBON DIOXIDE 31.2 mmol/L (21-32); CREATININE 1.93 mg/dL (0.55-1.02); PLATELET MORPHOLOGY COMMENT NORMAL (NORMAL); TOTAL PROTEIN 6.3 g/dL (6.4-8.2)
[2022-05-15] MEDS: NAMENDA TAB 10 MG PO SCH ×2 (08:20→21:07)
[2022-05-15] MEDS: PEPCID TAB 20 MG PO SCH (08:20)
[2022-05-15] MEDS: SINGULAIR TAB 10 MG PO SCH (08:21)
[2022-05-15] MEDS: NEURONTIN CAP 100 MG PO SCH ×2 (08:21→21:04)
[2022-05-15] MEDS: FERROUS GLUCONATE PO SCH (08:22)
[2022-05-15] MEDS: CORDARONE TAB 200 MG PO SCH (08:22)
[2022-05-15] MEDS: COREG TAB 3.125 MG PO SCH ×2 (08:23→21:04)
[2022-05-15] MEDS: ASPIRIN EC 81 MG PO SCH (08:23)
[2022-05-15] MEDS: ARICEPT TAB 10 MG PO SCH (08:23)
[2022-05-15] MEDS: EFFEXOR XR 37.5 MG CAP 24-HR PO SCH (08:23)
[2022-05-15] MEDS: PROTONIX TAB 40 MG PO SCH ×2 (08:23→21:05)
[2022-05-15] MEDS: LOVENOX INJ 30 MG SYR SC SCH (08:35)
[2022-05-15] MEDS: PULMICORT NEB TX 0.5 MG NEB SCH ×2 (08:53→21:41)
[2022-05-15] MEDS: APRESOLINE INJ 20 MG VIAL IVP PRN (09:18)
[2022-05-15] MEDS: ATIVAN INJ 2 MG VIAL IVP PRN ×2 (09:32→17:23)
[2022-05-15] MEDS ORDERED: TUSSIONEX PENNKINETIC SUSP PO PRN (10:19)
[2022-05-15] MEDS ORDERED: LASIX IVP ONE (10:19)
--- NOTE | 2022-05-15 10:55 | PCM.PROG ---
Progress Note Progress Note for Day of Date of Exam: 05/15/22 Subjective Subjective: Patient seen at bedside, overnight patient was noted to have respiratory distress with low sats. She was switched to NRB but continued to be in distress and anxious. She was placed on BiPAP. ABG showed worsening hypoxia and hypercapnia. Patient's daughter was notified and stated that patient wanted everything done including intubation if needed. Patient's stats remained >95% on Bipap. She was switched to [place] 3L this morning and sats were 100%. Patient ate some breakfast and then felt again that she could not breathe and started to get anxious, so placed back on BiPAP. She is currently resting with BiPAP, does not appear to be in any distress. Vitals remain stable. Labs reviewed: WBC 12.6 Cr: 1.93 K:3.2 ABG 7.36/52/141/29.4 FiO2 50% Last night CXR: increased b/l opacities, possible interstitial edema Plan: Give lasix 20 mg IV now. Continue Zosyn, nebs and solumedrol. Continue ativan 0.5 mg prn. Continue home medications. Wean O2 as tolerated to keep sats >88%. Continue ICU care and telemetry. Switch over to [place] for lunch and see how she tolerated. Monitor AM labs/imaging. Time spent for clinical assessment, reviewing labs/imaging, physical exam, decision making and documentation greater than 45 mins. Past Medical Family Social History Allergies: Allergies levofloxacin [From Levaquin] Allergy (Verified 07/11/19 23:02) Vital Signs and I&O's Vital Signs: Temperature 97.8 F Pulse Rate [Apical] 83 Pulse Rate 85 Respiratory Rate 22 Blood Pressure [Left Arm] 144/63 Blood Pressure [Right Arm] 164/72 Blood Pressure [Right Thigh] 188/76 Blood Pressure [Left Thigh] 172/68 Blood Pressure [Left Calf] 126/56 Blood Pressure [Left Arm] 113/53 Blood Pressure [Right Calf] 168/77 Blood Pressure [Right Arm] 117/53 Blood Pressure 197/77 O2 Sat by Pulse Oximetry 100 Intake and Output: Intake & Output 05/12/22 05/13/22 05/14/22 05/15/22 23:59 23:59 23:59 22:59 Intake Total 650 / 650 910 / 910 865 / 865 170 / 170 Output Total 100 / 100 Balance 650 / 650 910 / 910 865 / 865 70 / 70 Physical Exam Oriented: Normal Eyes: Normal Ear: Normal Nose: Normal Throat: Normal Respiratory: Generalized, Wheezes and Rhonchi Cardiovascular: Normal and Tachycardia Auscultation: Bowel Sounds: Normal Tenderness: Normal Skin: Decreased [place] Musculoskeletal: Normal Psychiatric: Normal and Anxiety Mood Description: Calm and Anxious Affect: Normal Speech Pattern: Artificially Ventilated (on Bipap ) Laboratory and Diagnostics Result Diagrams: 05/15/22 04:48 05/15/22 04:48 Labs: Laboratory WBC 12.6 X10^3/uL (3.6-10.0) H 05/15/22 04:48 RBC 3.68 X10^6/uL (3.5-5.4) 05/15/22 04:48 Hgb 10.4 g/dL (12.0-16.0) L 05/15/22 04:48 Hct 31.5 % (36.0-47.0) L 05/15/22 04:48 MCV 85.5 fL (80.0-100.0) 05/15/22 04:48 MCH 28.2 pg (27.0-34.0) 05/15/22 04:48 MCHC 33.0 g/dL (33.0-35.0) 05/15/22 04:48 RDW 15.5 % (11.6-16.5) 05/15/22 04:48 Plt Count 260 X10^3/uL (150.0-450.0) 05/15/22 04:48 Plt Count Comment Adequate (ADEQUATE) 05/15/22 04:48 MPV 9.7 fL (7.4-11.0) 05/15/22 04:48 Neut % (Auto) 90.7 % (42.0-75.0) H 05/15/22 04:48 Lymph % (Auto) 3.7 % (21.0-51.0) L 05/15/22 04:48 [place] % (Auto) 5.3 % (0.0-13.0) 05/15/22 04:48 Eos % (Auto) 0.0 % (0.9-2.9) L 05/15/22 04:48 Baso % (Auto) 0.3 % (0.2-1.0) 05/15/22 04:48 Neut # (Auto) 11.4 x10^3/uL (2.2-4.8) H 05/15/22 04:48 Lymph # (Auto) 0.5 X10^3/uL (1.3-2.9) L 05/15/22 04:48 [place] # (Auto) 0.7 x10^3/uL (0.3-0.8) 05/15/22 04:48 Eos # (Auto) 0.0 x10^3/uL (0.0-0.2) 05/15/22 04:48 Baso # (Auto) 0.0 X10^3/uL (0.0-0.1) 05/15/22 04:48 Absolute Nucleated RBC 0.0 /100WBC 05/15/22 04:48 Total Counted 100 05/15/22 04:48 Neutrophils % (Manual) 92 % (39-76) H 05/15/22 04:48 Lymphocytes % (Manual) 5 % (13-43) L 05/15/22 04:48 Monocytes % (Manual) 3 % (4-9) L 05/15/22 04:48 Plt Morphology Comment Normal (NORMAL) 05/15/22 04:48 RBC Morphology Normal (NORMAL) 05/15/22 04:48 Sample Site R rad 05/15/22 01:00 EST ABG pH 7.360 (7.35-7.45) 05/15/22 01:00 EST ABG pCO2 52.0 mmHg (35.0-45.0) H* 05/15/22 01:00 EST ABG pO2 141.0 mmHg (80.0-100.0) H 05/15/22 01:00 EST ABG HCO3 29.4 mmol/L (22-26) H 05/15/22 01:00 EST ABG O2 Saturation 99.0 % (90-100) 05/15/22 01:00 EST ABG Base Excess 3.0 mmol/L (-2.0-2.0) H 05/15/22 01:00 EST Jeff Test Pos 05/15/22 01:00 EST A-a Gradient 151.0 mmHg 05/15/22 01:00 EST FiO2 50.0 05/15/22 01:00 EST Blood Gas Comments Shanna well 05/15/22 01:00 EST Sodium 145 mmol/L (136-145) 05/15/22 04:48 Corrected Sodium 146 mmol/L (136-145) H 05/15/22 04:48 Potassium 5.2 mmol/L (3.5-5.1) H 05/15/22 04:48 Chloride 106 mmol/L (98-107) 05/15/22 04:48 Carbon Dioxide 31.2 mmol/L (21-32) 05/15/22 04:48 BUN 51 mg/dL (7-18) H 05/15/22 04:48 Creatinine 1.93 mg/dL (0.55-1.02) H 05/15/22 04:48 Est GFR (MDRD) Af Amer 32 (>60) L 05/15/22 04:48 Est GFR (MDRD) Non-Af 26 (>60) L 05/15/22 04:48 Glucose 123 mg/dL (65-99) H 05/15/22 04:48 POC Glucose (mg/dL) 110 mg/dL (65-99) H 05/15/22 05:26 Calcium 8.3 mg/dL (8.5-10.1) L 05/15/22 04:48 Corrected Calcium 9.0 mg/dL (8.5-10.1) 05/15/22 04:48 Total Bilirubin 0.30 mg/dL (0.2-1.0) 05/15/22 04:48 AST 15 Units/L (15-37) 05/15/22 04:48 ALT 18 Units/L (12-78) 05/15/22 04:48 Alkaline Phosphatase 52 Units/L (46-116) 05/15/22 04:48 Troponin I High Sens 35.8 ng/L (4.0-60.0) 05/12/22 08:24 B-Natriuretic Peptide 228 pg/mL (0-79) H 05/12/22 08:24 Total Protein 6.3 g/dL (6.4-8.2) L 05/15/22 04:48 Albumin 3.1 g/dL (3.4-5.0) L 05/15/22 04:48 Globulin 3.2 g/dL (2.5-4.5) 05/15/22 04:48 Albumin/Globulin Ratio 1.0 Ratio (1.1-2.1) L 05/15/22 04:48 Specimen Type Catherized urine 05/15/22 03:00 Urine Color Pale yellow (YELLOW) 05/15/22 03:00 Urine Appearance Clear (CLEAR) 05/15/22 03:00 Urine pH 5.0 (5.0 - 8.0) 05/15/22 03:00 Ur Specific [place] 1.025 (1.000-1.030) 05/15/22 03:00 Urine Protein 3+ (NEGATIVE) 05/15/22 03:00 Urine Glucose (UA) Negative (NEGATIVE) 05/15/22 03:00 Urine Ketones Negative (NEGATIVE) 05/15/22 03:00 Urine Blood Negative (NEGATIVE) 05/15/22 03:00 Urine Nitrite Negative (NEGATIVE) 05/15/22 03:00 Urine Bilirubin Negative (NEGATIVE) 05/15/22 03:00 Urine Urobilinogen Normal (NORMAL) 05/15/22 03:00 Ur Leukocyte Esterase Negative (NEGATIVE) 05/15/22 03:00 Urine RBC None seen /HPF (0-3) 05/15/22 03:00 Urine WBC None seen /HPF (0-5) 05/15/22 03:00 Ur Squamous Epith Cells Rare /HPF (NEGATIVE) 05/15/22 03:00 Urine Bacteria Negative /HPF (NEGATIVE) 05/15/22 03:00 Ur Culture Indicated? No/not indicated 05/15/22 03:00 SARS-CoV-2 (PCR) Negative (NEGATIVE) 05/12/22 08:20 Influenza Type A (PCR) Negative (NEGATIVE) 05/12/22 08:20 Influenza Type B (PCR) Negative (NEGATIVE) 05/12/22 08:20 RSV (PCR) Positive (NEGATIVE) A 05/12/22 08:20 Plan (1) Acute and chronic respiratory failure: Status: Acute (2) COPD exacerbation: Status: Acute (3) RSV infection: Status: Acute (4) CHF exacerbation: Status: Acute (5) Pneumonia: Status: Acute (6) CAD (coronary artery disease): Status: Chronic Qualifiers: Associated angina: unspecified whether angina present Coronary Disease- Associated Artery/Lesion type: unspecified vessel or lesion type [place] vs. transplanted heart: [place] heart Qualified Code(s): I25.10 - Atherosclerotic heart disease of [place] coronary artery without angina pectoris
[2022-05-15] MEDS ORDERED: NS 100 ML IV 100 ML ONE (13:29)
[2022-05-15] MEDS: TUSSIONEX PENNKINETIC SUSP PO PRN (21:03)
[2022-05-15] MEDS: PRAVACHOL PO SCH (21:05)
[2022-05-15] MEDS: PLAVIX PO SCH (21:05)
[2022-05-15] MEDS: VISTARIL PO PRN (21:06)
[2022-05-16] MEDS: PROVENTIL NEB TX 0.083% 2.5MG/ 3ML NEB SCH ×6 (01:02→20:00)
[2022-05-16] MEDS: SOLU-Medrol 40 MG VIAL IVP SCH ×3 (05:05→15:50)
[2022-05-16] MEDS: ZOSYN VIAL 3.375 GRAMS 3.375 G in NS 100 ML IV 100 ML IV SCH ×2 (05:07→21:20)
[2022-05-16] MEDS: REQUIP PO SCH ×3 (05:09→21:19)
[2022-05-16 05:14] LABS: BASOPHILS % (AUTO) 0.2 % (0.2-1.0); HEMOGLOBIN 10.4 g/dL (12.0-16.0); LYMPHOCYTES # (AUTO) 0.4 X10^3/uL (1.3-2.9); LYMPHOCYTES % (AUTO) 4.4 % (21.0-51.0); MEAN CORPUSCULAR HEMOGLOBIN 28.7 pg (27.0-34.0); MEAN CORPUSCULAR HGB CONC 33.5 g/dL (33.0-35.0); MEAN CORPUSCULAR VOLUME 85.8 fL (80.0-100.0); MEAN PLATELET VOLUME 9.9 fL (7.4-11.0); MONOCYTES # (AUTO) 0.4 x10^3/uL (0.3-0.8); MONOCYTES % (AUTO) 4.3 % (0.0-13.0); NEUTROPHILS # (AUTO) 8.6 x10^3/uL (2.2-4.8); NEUTROPHILS % (AUTO) 91.1 % (42.0-75.0); RED BLOOD COUNT 3.62 X10^6/uL (3.5-5.4); RED CELL DISTRIBUTION WIDTH 15.4 % (11.6-16.5); WHITE BLOOD COUNT 9.5 X10^3/uL (3.6-10.0)
[2022-05-16 05:22] LABS: CALCIUM 7.8 mg/dL (8.5-10.1); CARBON DIOXIDE 29.1 mmol/L (21-32); COR CA(FOR HYPOALB) 8.6 mg/dL (8.5-10.1); CREATININE 1.99 mg/dL (0.55-1.02); TOTAL PROTEIN 6.1 g/dL (6.4-8.2)
[2022-05-16 05:46] LABS: BAND NEUTROPHILS % 1 % (0-10); PLATELET MORPHOLOGY COMMENT NORMAL (NORMAL)
[2022-05-16] MEDS: APRESOLINE INJ 20 MG VIAL IVP PRN ×3 (06:01→17:10)
[2022-05-16] MEDS: LOVENOX INJ 30 MG SYR SC SCH (08:19)
[2022-05-16] MEDS: ARICEPT TAB 10 MG PO SCH (08:19)
[2022-05-16] MEDS: NEURONTIN CAP 100 MG PO SCH ×2 (08:20→21:17)
[2022-05-16] MEDS: ASPIRIN EC 81 MG PO SCH (08:20)
[2022-05-16] MEDS: FERROUS GLUCONATE PO SCH (08:20)
[2022-05-16] MEDS: VISTARIL PO PRN ×2 (08:20→21:18)
[2022-05-16] MEDS: PEPCID TAB 20 MG PO SCH (08:21)
[2022-05-16] MEDS: PROTONIX TAB 40 MG PO SCH ×2 (08:21→21:17)
[2022-05-16] MEDS: NAMENDA TAB 10 MG PO SCH ×2 (08:21→21:18)
[2022-05-16] MEDS: EFFEXOR XR 37.5 MG CAP 24-HR PO SCH (08:21)
[2022-05-16] MEDS: COREG TAB 3.125 MG PO SCH ×2 (08:22→21:18)
[2022-05-16] MEDS: CORDARONE TAB 200 MG PO SCH (08:22)
[2022-05-16] MEDS: SINGULAIR TAB 10 MG PO SCH (08:23)
[2022-05-16] MEDS: LASIX IVP SCH (08:28)
[2022-05-16] MEDS: PULMICORT NEB TX 0.5 MG NEB SCH ×2 (08:56→20:00)
--- NOTE | 2022-05-16 09:41 | PCM.PROG ---
Progress Note Progress Note for Day of Date of Exam: 05/16/22 Subjective Subjective: Patient seen at bedside, no acute events overnight. She is currently on NC 3L with sats > 95%. She does not appear to be in distress and appears to be resting. She states she does feel slightly better. She does feel weak and has not been eating much. Labs reviewed: WBC 9.5 Cr: 1.99 K:4.9 Plan: Follow CXR. Continue Zosyn, nebs and solumedrol. Continue IV lasix 20 mg daily. Monitor UOP. Continue ativan 0.5 mg prn. Continue home medications. Wean O2 as tolerated to keep sats >88%. Continue ICU care and telemetry. PT/OT as tolerated. Monitor AM labs/imaging. Time spent for clinical assessment, reviewing labs/imaging, physical exam, decision making and documentation greater than 45 mins. Past Medical Family Social History Allergies: Allergies levofloxacin [From Levaquin] Allergy (Verified 07/11/19 23:02) Vital Signs and I&O's Vital Signs: Temperature 97.9 F Pulse Rate [Apical] 76 Pulse Rate 73 Respiratory Rate 16 Blood Pressure [Left Arm] 163/64 Blood Pressure [Right Arm] 187/78 Blood Pressure [Right Thigh] 188/76 Blood Pressure [Left Thigh] 172/68 Blood Pressure [Left Calf] 126/56 Blood Pressure [Left Arm] 113/53 Blood Pressure [Right Calf] 168/77 Blood Pressure [Right Arm] 117/53 Blood Pressure 197/77 O2 Sat by Pulse Oximetry 97 Intake and Output: Intake & Output 05/14/22 05/15/22 05/15/22 05/16/22 00:59 00:59 23:59 23:59 Intake Total 340 / 340 Output Total 250 / 250 Balance 90 / 90 Physical Exam Oriented: Normal Eyes: Normal Ear: Normal Nose: Normal Throat: Normal Respiratory: Generalized (Improved), Wheezes and Rhonchi Cardiovascular: Normal Auscultation: Bowel Sounds: Normal Tenderness: Normal Skin: Decreased [place] Musculoskeletal: Normal Psychiatric: Normal Mood Description: Calm Affect: Normal Speech Pattern: Clear and Appropriate Laboratory and Diagnostics Result Diagrams: 05/16/22 04:28 05/16/22 04:28 Labs: Laboratory WBC 9.5 X10^3/uL (3.6-10.0) 05/16/22 04:28 RBC 3.62 X10^6/uL (3.5-5.4) 05/16/22 04:28 Hgb 10.4 g/dL (12.0-16.0) L 05/16/22 04:28 Hct 31.0 % (36.0-47.0) L 05/16/22 04:28 MCV 85.8 fL (80.0-100.0) 05/16/22 04:28 MCH 28.7 pg (27.0-34.0) 05/16/22 04:28 MCHC 33.5 g/dL (33.0-35.0) 05/16/22 04: RDW 15.4 % (11.6-16.5) 05/16/22 04:28 Plt Count 224 X10^3/uL (150.0-450.0) 05/16/22 04:28 Plt Count Comment Adequate (ADEQUATE) 05/16/22 04:28 MPV 9.9 fL (7.4-11.0) 05/16/22 04:28 Neut % (Auto) 91.1 % (42.0-75.0) H 05/16/22 04:28 Lymph % (Auto) 4.4 % (21.0-51.0) L 05/16/22 04:28 [place] % (Auto) 4.3 % (0.0-13.0) 05/16/22 04:28 Eos % (Auto) 0.0 % (0.9-2.9) L 05/16/22 04:28 Baso % (Auto) 0.2 % (0.2-1.0) 05/16/22 04:28 Neut # (Auto) 8.6 x10^3/uL (2.2-4.8) H 05/16/22 04:28 Lymph # (Auto) 0.4 X10^3/uL (1.3-2.9) L 05/16/22 04:28 [place] # (Auto) 0.4 x10^3/uL (0.3-0.8) 05/16/22 04:28 Eos # (Auto) 0.0 x10^3/uL (0.0-0.2) 05/16/22 04:28 Baso # (Auto) 0.0 X10^3/uL (0.0-0.1) 05/16/22 04:28 Absolute Nucleated RBC 0.0 /100WBC 05/16/22 04:28 Total Counted 100 05/16/22 04:28 Neutrophils % (Manual) 90 % (39-76) H 05/16/22 04:28 Band Neutrophils % 1 % (0-10) 05/16/22 04:28 Lymphocytes % (Manual) 6 % (13-43) L 05/16/22 04:28 Monocytes % (Manual) 3 % (4-9) L 05/16/22 04:28 Plt Morphology Comment Normal (NORMAL) 05/16/22 04: RBC Morphology Normal (NORMAL) 05/16/22 04:28 Sample Site R rad 05/15/22 01:00 EST ABG pH 7.360 (7.35-7.45) 05/15/22 01:00 EST ABG pCO2 52.0 mmHg (35.0-45.0) H* 05/15/22 01:00 EST ABG pO2 141.0 mmHg (80.0-100.0) H 05/15/22 01:00 EST ABG HCO3 29.4 mmol/L (22-26) H 05/15/22 01:00 EST ABG O2 Saturation 99.0 % (90-100) 05/15/22 01:00 EST ABG Base Excess 3.0 mmol/L (-2.0-2.0) H 05/15/22 01:00 EST Jeff Test Pos 05/15/22 01:00 EST A-a Gradient 151.0 mmHg 05/15/22 01:00 EST FiO2 50.0 05/15/22 01:00 EST Blood Gas Comments Shanna well 05/15/22 01:00 EST Sodium 145 mmol/L (136-145) 05/16/22 04:28 Corrected Sodium 146 mmol/L (136-145) H 05/16/22 04:28 Potassium 4.9 mmol/L (3.5-5.1) 05/16/22 04:28 Chloride 106 mmol/L (98-107) 05/16/22 04:28 Carbon Dioxide 29.1 mmol/L (21-32) 05/16/22 04:28 BUN 64 mg/dL (7-18) H 05/16/22 04:28 Creatinine 1.99 mg/dL (0.55-1.02) H 05/16/22 04:28 Est GFR (MDRD) Af Amer 31 (>60) L 05/16/22 04:28 Est GFR (MDRD) Non-Af 25 (>60) L 05/16/22 04:28 Glucose 130 mg/dL (65-99) H 05/16/22 04:28 POC Glucose (mg/dL) 148 mg/dL (65-99) H 05/16/22 05:15 Calcium 7.8 mg/dL (8.5-10.1) L 05/16/22 04:28 Corrected Calcium 8.6 mg/dL (8.5-10.1) 05/16/22 04:28 Total Bilirubin 0.30 mg/dL (0.2-1.0) 05/16/22 04:28 AST 14 Units/L (15-37) L 05/16/22 04:28 ALT 19 Units/L (12-78) 05/16/22 04:28 Alkaline Phosphatase 46 Units/L (46-116) 05/16/22 04:28 Troponin I High Sens 35.8 ng/L (4.0-60.0) 05/12/22 08:24 B-Natriuretic Peptide 285 pg/mL (0-79) H 05/16/22 04:28 Total Protein 6.1 g/dL (6.4-8.2) L 05/16/22 04:28 Albumin 3.0 g/dL (3.4-5.0) L 05/16/22 04:28 Globulin 3.1 g/dL (2.5-4.5) 05/16/22 04:28 Albumin/Globulin Ratio 1.0 Ratio (1.1-2.1) L 05/16/22 04:28 Specimen Type Catherized urine 05/15/22 03:00 Urine Color Pale yellow (YELLOW) 05/15/22 03:00 Urine Appearance Clear (CLEAR) 05/15/22 03:00 Urine pH 5.0 (5.0 - 8.0) 05/15/22 03:00 Ur Specific [place] 1.025 (1.000-1.030) 05/15/22 03:00 Urine Protein 3+ (NEGATIVE) 05/15/22 03:00 Urine Glucose (UA) Negative (NEGATIVE) 05/15/22 03:00 Urine Ketones Negative (NEGATIVE) 05/15/22 03:00 Urine Blood Negative (NEGATIVE) 05/15/22 03:00 Urine Nitrite Negative (NEGATIVE) 05/15/22 03:00 Urine Bilirubin Negative (NEGATIVE) 05/15/22 03:00 Urine Urobilinogen Normal (NORMAL) 05/15/22 03:00 Ur Leukocyte Esterase Negative (NEGATIVE) 05/15/22 03:00 Urine RBC None seen /HPF (0-3) 05/15/22 03:00 Urine WBC None seen /HPF (0-5) 05/15/22 03:00 Ur Squamous Epith Cells Rare /HPF (NEGATIVE) 05/15/22 03:00 Urine Bacteria Negative /HPF (NEGATIVE) 05/15/22 03:00 Ur Culture Indicated? No/not indicated 05/15/22 03:00 SARS-CoV-2 (PCR) Negative (NEGATIVE) 05/12/22 08:20 Influenza Type A (PCR) Negative (NEGATIVE) 05/12/22 08:20 Influenza Type B (PCR) Negative (NEGATIVE) 05/12/22 08:20 RSV (PCR) Positive (NEGATIVE) A 05/12/22 08:20 Plan (1) Acute and chronic respiratory failure: Status: Acute (2) COPD exacerbation: Status: Acute (3) RSV infection: Status: Acute (4) CHF exacerbation: Status: Acute (5) Pneumonia: Status: Acute (6) CAD (coronary artery disease): Status: Chronic Qualifiers: Associated angina: unspecified whether angina present Coronary Disease- Associated Artery/Lesion type: unspecified vessel or lesion type [place] vs. transplanted heart: [place] heart Qualified Code(s): I25.10 - Atherosclerotic heart disease of [place] coronary artery without angina pectoris
[2022-05-16] MEDS: ZOFRAN INJ 4 MG VIAL IVP PRN (15:50)
[2022-05-16] MEDS ORDERED: NS 100 ML IV 100 ML ONE (20:16)
[2022-05-16] MEDS: PRAVACHOL PO SCH (21:18)
[2022-05-16] MEDS: PLAVIX PO SCH (21:22)
--- NOTE | 2022-05-16 21:55 | RAD ---
HISTORYPNEUMONIA, HYPOXIASTUDYCHEST, 1 VIEWCOMPARISONCl[facility] 2021TECHNIQUEChest radiographic imaging, AP portable projection, 1 imageFINDINGSNo cardiomegaly.Hazy airspace disease along the periphery of the left lung; without significant change.Surgical clips in the left axilla.No pleural effusion.No pneumothorax.No acute osseous abnormality.IMPRESSIONNo significant interval acute cardiopulmonary changes.Electronically signed by: Shahbaz Sam (May 16, 2022 21:53:16)
[2022-05-16] MEDS: TUSSIONEX PENNKINETIC SUSP PO PRN (22:26)
[2022-05-17] MEDS: PROVENTIL NEB TX 0.083% 2.5MG/ 3ML NEB SCH ×6 (00:10→20:05)
[2022-05-17] MEDS: SOLU-Medrol 40 MG VIAL IVP SCH (04:45)
[2022-05-17] MEDS: REQUIP PO SCH ×3 (05:19→21:36)
[2022-05-17 05:28] LABS: BASOPHILS % (AUTO) 0.1 % (0.2-1.0); HEMATOCRIT 30.8 % (36.0-47.0); HEMOGLOBIN 10.2 g/dL (12.0-16.0); LYMPHOCYTES # (AUTO) 0.4 X10^3/uL (1.3-2.9); LYMPHOCYTES % (AUTO) 5.7 % (21.0-51.0); MEAN CORPUSCULAR HEMOGLOBIN 28.4 pg (27.0-34.0); MEAN CORPUSCULAR HGB CONC 33.2 g/dL (33.0-35.0); MEAN CORPUSCULAR VOLUME 85.6 fL (80.0-100.0); MONOCYTES # (AUTO) 0.5 x10^3/uL (0.3-0.8); MONOCYTES % (AUTO) 7.1 % (0.0-13.0); NEUTROPHILS # (AUTO) 6.6 x10^3/uL (2.2-4.8); NEUTROPHILS % (AUTO) 87.1 % (42.0-75.0); RED BLOOD COUNT 3.59 X10^6/uL (3.5-5.4); RED CELL DISTRIBUTION WIDTH 15.5 % (11.6-16.5); WHITE BLOOD COUNT 7.6 X10^3/uL (3.6-10.0)
[2022-05-17 05:39] LABS: CALCIUM 7.8 mg/dL (8.5-10.1); CARBON DIOXIDE 32.5 mmol/L (21-32); COR CA(FOR HYPOALB) 8.6 mg/dL (8.5-10.1); CREATININE 2.09 mg/dL (0.55-1.02)
[2022-05-17] MEDS: PULMICORT NEB TX 0.5 MG NEB SCH ×2 (08:00→20:05)
[2022-05-17] MEDS: LOVENOX INJ 30 MG SYR SC SCH (09:09)
[2022-05-17] MEDS: LASIX IVP SCH (09:10)
[2022-05-17] MEDS: PROTONIX TAB 40 MG PO SCH ×2 (09:13→21:37)
[2022-05-17] MEDS: ASPIRIN EC 81 MG PO SCH (09:13)
[2022-05-17] MEDS: COREG TAB 3.125 MG PO SCH ×2 (09:13→21:37)
[2022-05-17] MEDS: SINGULAIR TAB 10 MG PO SCH (09:13)
[2022-05-17] MEDS: FERROUS GLUCONATE PO SCH (09:14)
[2022-05-17] MEDS: NAMENDA TAB 10 MG PO SCH ×2 (09:14→21:38)
[2022-05-17] MEDS: ARICEPT TAB 10 MG PO SCH (09:14)
[2022-05-17] MEDS: EFFEXOR XR 37.5 MG CAP 24-HR PO SCH (09:14)
[2022-05-17] MEDS: NEURONTIN CAP 100 MG PO SCH ×2 (09:15→21:36)
[2022-05-17] MEDS: CORDARONE TAB 200 MG PO SCH (09:15)
[2022-05-17] MEDS: APRESOLINE INJ 20 MG VIAL IVP PRN ×2 (09:18→14:40)
[2022-05-17] MEDS: ZOSYN VIAL 3.375 GRAMS 3.375 G in NS 100 ML IV 100 ML IV SCH ×2 (09:22→21:39)
[2022-05-17] MEDS ORDERED: D5W 1,000 ML IV 1,000 ML IV SCH (09:30)
--- NOTE | 2022-05-17 13:03 | PCM.PROG ---
Progress Note Progress Note for Day of Date of Exam: 05/17/22 Subjective Subjective: Patient seen at bedside, no acute events overnight. She is currently on NC 3L with sats > 95%. She does not appear to be in distress and appears to be resting. She states she does feel better. She does feel weak and has not been eating much. She reports having a hard time eating solids and would prefer soft foods. She did sit up on the recliner for a bit yesterday. Labs reviewed: WBC 7.6 Cr: 2.09 K:4.4 Na 146 Plan: Continue Zosyn, nebs and taper solumedrol. Start gentle hydration with D5 at 50cc/hr for 10 hrs only. Monitor UOP. Continue ativan 0.5 mg prn. Continue home medications. Wean O2 as tolerated to keep sats >88%. PT/OT as tolerated. Advised patient to sit up when eating. Monitor AM labs/imaging. Past Medical Family Social History Allergies: Allergies levofloxacin [From Levaquin] Allergy (Verified 07/11/19 23:02) Vital Signs and I&O's Vital Signs: Temperature 98.2 F Pulse Rate [Apical] 81 Pulse Rate 78 Respiratory Rate 16 Blood Pressure [Left Arm] 189/74 Blood Pressure [Right Arm] 84/53 Blood Pressure [Right Thigh] 188/76 Blood Pressure [Left Thigh] 172/68 Blood Pressure [Left Calf] 126/56 Blood Pressure [Left Arm] 113/53 Blood Pressure [Right Calf] 168/77 Blood Pressure [Right Arm] 117/53 Blood Pressure 197/77 O2 Sat by Pulse Oximetry 99 Intake and Output: Intake & Output 05/15/22 05/15/22 05/16/22 05/17/22 00:59 23:59 23:59 23:59 Intake Total 1162 / 1162 222 / 222 Output Total 1050 / 1050 200 / 200 Balance 112 / 112 Physical Exam Oriented: Normal Eyes: Normal Ear: Normal Nose: Normal Throat: Normal Respiratory: Generalized (Improved) and Rhonchi Cardiovascular: Normal Auscultation: Bowel Sounds: Normal Tenderness: Normal Skin: Decreased [place]urgur Musculoskeletal: Normal Psychiatric: Normal Mood Description: Calm Affect: Normal Speech Pattern: Clear and Appropriate Laboratory and Diagnostics Result Diagrams: 05/17/22 04:19 05/17/22 04:19 Labs: Laboratory WBC 7.6 X10^3/uL (3.6-10.0) 05/17/22 04:19 RBC 3.59 X10^6/uL (3.5-5.4) 05/17/22 04:19 Hgb 10.2 g/dL (12.0-16.0) L 05/17/22 04:19 Hct 30.8 % (36.0-47.0) L 05/17/22 04:19 MCV 85.6 fL (80.0-100.0) 05/17/22 04:19 MCH 28.4 pg (27.0-34.0) 05/17/22 04:19 MCHC 33.2 g/dL (33.0-35.0) 05/17/22 04:19 RDW 15.5 % (11.6-16.5) 05/17/22 04:19 Plt Count 221 X10^3/uL (150.0-450.0) 05/17/22 04:19 Plt Count Comment Adequate (ADEQUATE) 05/16/22 04:28 MPV 10.0 fL (7.4-11.0) 05/17/22 04:19 Neut % (Auto) 87.1 % (42.0-75.0) H 05/17/22 04:19 Lymph % (Auto) 5.7 % (21.0-51.0) L 05/17/22 04:19 [place] % (Auto) 7.1 % (0.0-13.0) 05/17/22 04:19 Eos % (Auto) 0.0 % (0.9-2.9) L 05/17/22 04:19 Baso % (Auto) 0.1 % (0.2-1.0) L 05/17/22 04:19 Neut # (Auto) 6.6 x10^3/uL (2.2-4.8) H 05/17/22 04:19 Lymph # (Auto) 0.4 X10^3/uL (1.3-2.9) L 05/17/22 04:19 [place] # (Auto) 0.5 x10^3/uL (0.3-0.8) 05/17/22 04:19 Eos # (Auto) 0.0 x10^3/uL (0.0-0.2) 05/17/22 04:19 Baso # (Auto) 0.0 X10^3/uL (0.0-0.1) 05/17/22 04:19 Absolute Nucleated RBC 0.1 /100WBC 05/17/22 04:19 Total Counted 100 05/16/22 04:28 Neutrophils % (Manual) 90 % (39-76) H 05/16/22 04:28 Band Neutrophils % 1 % (0-10) 05/16/22 04:28 Lymphocytes % (Manual) 6 % (13-43) L 05/16/22 04:28 Monocytes % (Manual) 3 % (4-9) L 05/16/22 04:28 Plt Morphology Comment Normal (NORMAL) 05/16/22 04:28 RBC Morphology Normal (NORMAL) 05/16/22 04:28 Sample Site R rad 05/15/22 01:00 EST ABG pH 7.360 (7.35-7.45) 05/15/22 01:00 EST ABG pCO2 52.0 mmHg (35.0-45.0) H* 05/15/22 01:00 EST ABG pO2 141.0 mmHg (80.0-100.0) H 05/15/22 01:00 EST ABG HCO3 29.4 mmol/L (22-26) H 05/15/22 01:00 EST ABG O2 Saturation 99.0 % (90-100) 05/15/22 01:00 EST ABG Base Excess 3.0 mmol/L (-2.0-2.0) H 05/15/22 01:00 EST Jeff Test Pos 05/15/22 01:00 EST A-a Gradient 151.0 mmHg 05/15/22 01:00 EST FiO2 50.0 05/15/22 01:00 EST Blood Gas Comments Shanna well 05/15/22 01:00 EST Sodium 146 mmol/L (136-145) H 05/17/22 04:19 Corrected Sodium 148 mmol/L (136-145) H 05/17/22 04:19 Potassium 4.4 mmol/L (3.5-5.1) 05/17/22 04:19 Chloride 106 mmol/L (98-107) 05/17/22 04:19 Carbon Dioxide 32.5 mmol/L (21-32) H 05/17/22 04:19 BUN 69 mg/dL (7-18) H 05/17/22 04:19 Creatinine 2.09 mg/dL (0.55-1.02) H 05/17/22 04:19 Est GFR (MDRD) Af Amer 29 (>60) L 05/17/22 04:19 Est GFR (MDRD) Non-Af 24 (>60) L 05/17/22 04:19 Glucose 179 mg/dL (65-99) H 05/17/22 04:19 POC Glucose (mg/dL) 143 mg/dL (65-99) H 05/17/22 11:31 Calcium 7.8 mg/dL (8.5-10.1) L 05/17/22 04:19 Corrected Calcium 8.6 mg/dL (8.5-10.1) 05/17/22 04:19 Total Bilirubin 0.30 mg/dL (0.2-1.0) 05/17/22 04:19 AST 13 Units/L (15-37) L 05/17/22 04:19 ALT 21 Units/L (12-78) 05/17/22 04:19 Alkaline Phosphatase 46 Units/L (46-116) 05/17/22 04:19 Troponin I High Sens 35.8 ng/L (4.0-60.0) 05/12/22 08:24 B-Natriuretic Peptide 285 pg/mL (0-79) H 05/16/22 04:28 Total Protein 6.0 g/dL (6.4-8.2) L 05/17/22 04:19 Albumin 3.0 g/dL (3.4-5.0) L 05/17/22 04:19 Globulin 3.0 g/dL (2.5-4.5) 05/17/22 04:19 Albumin/Globulin Ratio 1.0 Ratio (1.1-2.1) L 05/17/22 04:19 Specimen Type Catherized urine 05/15/22 03:00 Urine Color Pale yellow (YELLOW) 05/15/22 03:00 Urine Appearance Clear (CLEAR) 05/15/22 03:00 Urine pH 5.0 (5.0 - 8.0) 05/15/22 03:00 Ur Specific [place] 1.025 (1.000-1.030) 05/15/22 03:00 Urine Protein 3+ (NEGATIVE) 05/15/22 03:00 Urine Glucose (UA) Negative (NEGATIVE) 05/15/22 03:00 Urine Ketones Negative (NEGATIVE) 05/15/22 03:00 Urine Blood Negative (NEGATIVE) 05/15/22 03:00 Urine Nitrite Negative (NEGATIVE) 05/15/22 03:00 Urine Bilirubin Negative (NEGATIVE) 05/15/22 03:00 Urine Urobilinogen Normal (NORMAL) 05/15/22 03:00 Ur Leukocyte Esterase Negative (NEGATIVE) 05/15/22 03:00 Urine RBC None seen /HPF (0-3) 05/15/22 03:00 Urine WBC None seen /HPF (0-5) 05/15/22 03:00 Ur Squamous Epith Cells Rare /HPF (NEGATIVE) 05/15/22 03:00 Urine Bacteria Negative /HPF (NEGATIVE) 05/15/22 03:00 Ur Culture Indicated? No/not indicated 05/15/22 03:00 SARS-CoV-2 (PCR) Negative (NEGATIVE) 05/12/22 08:20 Influenza Type A (PCR) Negative (NEGATIVE) 05/12/22 08:20 Influenza Type B (PCR) Negative (NEGATIVE) 05/12/22 08:20 RSV (PCR) Positive (NEGATIVE) A 05/12/22 08:20 Plan (1) Dehydration: Status: Acute (2) Acute on chronic renal failure: Status: Acute (3) Acute and chronic respiratory failure: Status: Acute (4) COPD exacerbation: Status: Acute (5) RSV infection: Status: Acute (6) CHF exacerbation: Status: Acute (7) Pneumonia: Status: Acute (8) CAD (coronary artery disease): Status: Chronic Qualifiers: Associated angina: unspecified whether angina present Coronary Disease- Associated Artery/Lesion type: unspecified vessel or lesion type [place] vs. transplanted heart: [place] heart Qualified Code(s): I25.10 - Atherosclerotic heart disease of [place] coronary artery without angina pectoris
[2022-05-17] MEDS: ZOFRAN INJ 4 MG VIAL IVP PRN (13:56)
[2022-05-17] MEDS: PRAVACHOL PO SCH (21:36)
[2022-05-17] MEDS: PLAVIX PO SCH (21:46)
[2022-05-18] MEDS: PROVENTIL NEB TX 0.083% 2.5MG/ 3ML NEB SCH ×6 (01:50→21:03)
[2022-05-18] MEDS: REQUIP PO SCH ×3 (05:12→21:36)
[2022-05-18 06:26] LABS: BASOPHILS % (AUTO) 0.3 % (0.2-1.0); EOSINOPHILS % (AUTO) 0.1 % (0.9-2.9); HEMATOCRIT 28.8 % (36.0-47.0); HEMOGLOBIN 9.7 g/dL (12.0-16.0); LYMPHOCYTES # (AUTO) 1.2 X10^3/uL (1.3-2.9); LYMPHOCYTES % (AUTO) 14.9 % (21.0-51.0); MEAN CORPUSCULAR HEMOGLOBIN 28.7 pg (27.0-34.0); MEAN CORPUSCULAR HGB CONC 33.7 g/dL (33.0-35.0); MEAN CORPUSCULAR VOLUME 85.1 fL (80.0-100.0); MEAN PLATELET VOLUME 9.8 fL (7.4-11.0); MONOCYTES # (AUTO) 1.1 x10^3/uL (0.3-0.8); MONOCYTES % (AUTO) 13.4 % (0.0-13.0); NEUTROPHILS # (AUTO) 5.8 x10^3/uL (2.2-4.8); NEUTROPHILS % (AUTO) 71.3 % (42.0-75.0); RED BLOOD COUNT 3.39 X10^6/uL (3.5-5.4); WHITE BLOOD COUNT 8.2 X10^3/uL (3.6-10.0)
[2022-05-18 06:35] LABS: BLOOD UREA NITROGEN 61 mg/dL (7-18); CALCIUM 7.9 mg/dL (8.5-10.1); CARBON DIOXIDE 32.5 mmol/L (21-32); CHLORIDE 106 mmol/L (98-107); CREATININE 1.86 mg/dL (0.55-1.02); SODIUM 146 mmol/L (136-145); eGFR NON BLACK RACES 27 (>60)
[2022-05-18] MEDS ORDERED: D5W 1,000 ML IV 1,000 ML IV SCH (09:00)
[2022-05-18] MEDS: PULMICORT NEB TX 0.5 MG NEB SCH ×2 (09:25→21:03)
[2022-05-18] MEDS: NEURONTIN CAP 100 MG PO SCH ×2 (09:39→20:35)
[2022-05-18] MEDS: SINGULAIR TAB 10 MG PO SCH (09:40)
[2022-05-18] MEDS: EFFEXOR XR 37.5 MG CAP 24-HR PO SCH (09:40)
[2022-05-18] MEDS: ASPIRIN EC 81 MG PO SCH (09:40)
[2022-05-18] MEDS: COREG TAB 3.125 MG PO SCH ×2 (09:40→20:36)
[2022-05-18] MEDS: CORDARONE TAB 200 MG PO SCH (09:40)
[2022-05-18] MEDS: ARICEPT TAB 10 MG PO SCH (09:40)
[2022-05-18] MEDS: FERROUS GLUCONATE PO SCH (09:41)
[2022-05-18] MEDS: NAMENDA TAB 10 MG PO SCH ×2 (09:41→20:34)
[2022-05-18] MEDS: SOLU-Medrol 40 MG VIAL IVP SCH (09:42)
[2022-05-18] MEDS: LOVENOX INJ 30 MG SYR SC SCH (09:42)
[2022-05-18] MEDS: PROTONIX TAB 40 MG PO SCH ×2 (09:42→20:36)
[2022-05-18] MEDS: ZOSYN VIAL 3.375 GRAMS 3.375 G in NS 100 ML IV 100 ML IV SCH ×2 (09:42→21:35)
[2022-05-18] MEDS: LASIX IVP SCH (09:42)
--- NOTE | 2022-05-18 13:14 | PCM.PROG ---
Progress Note Progress Note for Day of Date of Exam: 05/18/22 Subjective Subjective: Patient seen at bedside, no acute events overnight. She is currently on NC 3L with sats > 95%. She is sitting up and eating. She states she feels better. She is still weak and not able to do much. She did work with PT yesterday. She did not get out of bed. She states at home she was able to transfer using a walker or wheelchair from bed to chair. She has not tried to do that yet. She is eating a little better. Labs reviewed: WBC 8.2 Cr: 1.86 K:4.4 Na 146 Plan: Continue Zosyn, nebs and taper solumedrol. Continue gentle hydration with D5 at 50cc/hr for 12 hrs only. Monitor UOP. Continue ativan 0.5 mg prn. Continue home medications. Wean O2 as tolerated to keep sats >88%. PT/OT as tolerated. Advised patient to sit up when eating. Monitor AM labs/imaging. Past Medical Family Social History Allergies: Allergies levofloxacin [From Levaquin] Allergy (Verified 07/11/19 23:02) Vital Signs and I&O's Vital Signs: Temperature 97.8 F Pulse Rate [Apical] 76 Pulse Rate 93 Respiratory Rate 18 Blood Pressure [Left Arm] 142/63 Blood Pressure [Right Arm] 84/53 Blood Pressure [Right Thigh] 188/76 Blood Pressure [Left Thigh] 172/68 Blood Pressure [Left Calf] 126/56 Blood Pressure [Left Arm] 113/53 Blood Pressure [Right Calf] 168/77 Blood Pressure [Right Arm] 117/53 Blood Pressure 197/77 O2 Sat by Pulse Oximetry 94 Intake and Output: Intake & Output 05/15/22 05/16/22 05/17/22 05/18/22 23:59 23:59 23:59 23:59 Intake Total 1162 / 1162 1003 / 1003 410 / 410 Output Total 1050 / 1050 1000 / 1000 600 / 600 Balance 112 / 112 3 / 3 -190 / -190 Physical Exam Oriented: Normal Eyes: Normal Ear: Normal Nose: Normal Throat: Normal Respiratory: Generalized, Wheezes and Rhonchi Cardiovascular: Normal Auscultation: Bowel Sounds: Normal Tenderness: Normal Skin: Decreased [place] Musculoskeletal: Normal Psychiatric: Normal Mood Description: Calm Affect: Normal Speech Pattern: Clear and Appropriate Laboratory and Diagnostics Result Diagrams: 05/18/22 05:27 05/18/22 05:27 Labs: Laboratory WBC 8.2 X10^3/uL (3.6-10.0) 05/18/22 05:27 RBC 3.39 X10^6/uL (3.5-5.4) L 05/18/22 05:27 Hgb 9.7 g/dL (12.0-16.0) L 05/18/22 05:27 Hct 28.8 % (36.0-47.0) L 05/18/22 05:27 MCV 85.1 fL (80.0-100.0) 05/18/22 05:27 MCH 28.7 pg (27.0-34.0) 05/18/22 05:27 MCHC 33.7 g/dL (33.0-35.0) 05/18/22 05:27 RDW 15.0 % (11.6-16.5) 05/18/22 05:27 Plt Count 213 X10^3/uL (150.0-450.0) 05/18/22 05:27 Plt Count Comment Adequate (ADEQUATE) 05/16/22 04:28 MPV 9.8 fL (7.4-11.0) 05/18/22 05:27 Neut % (Auto) 71.3 % (42.0-75.0) 05/18/22 05:27 Lymph % (Auto) 14.9 % (21.0-51.0) L 05/18/22 05:27 [place] % (Auto) 13.4 % (0.0-13.0) H 05/18/22 05:27 Eos % (Auto) 0.1 % (0.9-2.9) L 05/18/22 05:27 Baso % (Auto) 0.3 % (0.2-1.0) 05/18/22 05:27 Neut # (Auto) 5.8 x10^3/uL (2.2-4.8) H 05/18/22 05:27 Lymph # (Auto) 1.2 X10^3/uL (1.3-2.9) L 05/18/22 05:27 [place] # (Auto) 1.1 x10^3/uL (0.3-0.8) H 05/18/22 05:27 Eos # (Auto) 0.0 x10^3/uL (0.0-0.2) 05/18/22 05:27 Baso # (Auto) 0.0 X10^3/uL (0.0-0.1) 05/18/22 05:27 Absolute Nucleated RBC 0.1 /100WBC 05/18/22 05:27 Total Counted 100 05/16/22 04:28 Neutrophils % (Manual) 90 % (39-76) H 05/16/22 04:28 Band Neutrophils % 1 % (0-10) 05/16/22 04:28 Lymphocytes % (Manual) 6 % (13-43) L 05/16/22 04:28 Monocytes % (Manual) 3 % (4-9) L 05/16/22 04:28 Plt Morphology Comment Normal (NORMAL) 05/16/22 04:28 RBC Morphology Normal (NORMAL) 05/16/22 04:28 Sample Site R rad 05/15/22 01:00 EST ABG pH 7.360 (7.35-7.45) 05/15/22 01:00 EST ABG pCO2 52.0 mmHg (35.0-45.0) H* 05/15/22 01:00 EST ABG pO2 141.0 mmHg (80.0-100.0) H 05/15/22 01:00 EST ABG HCO3 29.4 mmol/L (22-26) H 05/15/22 01:00 EST ABG O2 Saturation 99.0 % (90-100) 05/15/22 01:00 EST ABG Base Excess 3.0 mmol/L (-2.0-2.0) H 05/15/22 01:00 EST Jeff Test Pos 05/15/22 01:00 EST A-a Gradient 151.0 mmHg 05/15/22 01:00 EST FiO2 50.0 05/15/22 01:00 EST Blood Gas Comments Shanna well 05/15/22 01:00 EST Sodium 146 mmol/L (136-145) H 05/18/22 05:27 Corrected Sodium TNP 05/18/22 05:27 Potassium 4.4 mmol/L (3.5-5.1) 05/18/22 05:27 Chloride 106 mmol/L (98-107) 05/18/22 05:27 Carbon Dioxide 32.5 mmol/L (21-32) H 05/18/22 05:27 BUN 61 mg/dL (7-18) H 05/18/22 05:27 Creatinine 1.86 mg/dL (0.55-1.02) H 05/18/22 05:27 Est GFR (MDRD) Af Amer 33 (>60) L 05/18/22 05:27 Est GFR (MDRD) Non-Af 27 (>60) L 05/18/22 05:27 Glucose 92 mg/dL (65-99) 05/18/22 05:27 POC Glucose (mg/dL) 96 mg/dL (65-99) 05/18/22 11:20 Calcium 7.9 mg/dL (8.5-10.1) L 05/18/22 05:27 Corrected Calcium 8.6 mg/dL (8.5-10.1) 05/17/22 04:19 Total Bilirubin 0.30 mg/dL (0.2-1.0) 05/17/22 04:19 AST 13 Units/L (15-37) L 05/17/22 04:19 ALT 21 Units/L (12-78) 05/17/22 04:19 Alkaline Phosphatase 46 Units/L (46-116) 05/17/22 04:19 Troponin I High Sens 35.8 ng/L (4.0-60.0) 05/12/22 08:24 B-Natriuretic Peptide 285 pg/mL (0-79) H 05/16/22 04:28 Total Protein 6.0 g/dL (6.4-8.2) L 05/17/22 04:19 Albumin 3.0 g/dL (3.4-5.0) L 05/17/22 04:19 Globulin 3.0 g/dL (2.5-4.5) 05/17/22 04:19 Albumin/Globulin Ratio 1.0 Ratio (1.1-2.1) L 05/17/22 04:19 Specimen Type Catherized urine 05/15/22 03:00 Urine Color Pale yellow (YELLOW) 05/15/22 03:00 Urine Appearance Clear (CLEAR) 05/15/22 03:00 Urine pH 5.0 (5.0 - 8.0) 05/15/22 03:00 Ur Specific [place] 1.025 (1.000-1.030) 05/15/22 03:00 Urine Protein 3+ (NEGATIVE) 05/15/22 03:00 Urine Glucose (UA) Negative (NEGATIVE) 05/15/22 03:00 Urine Ketones Negative (NEGATIVE) 05/15/22 03:00 Urine Blood Negative (NEGATIVE) 05/15/22 03:00 Urine Nitrite Negative (NEGATIVE) 05/15/22 03:00 Urine Bilirubin Negative (NEGATIVE) 05/15/22 03:00 Urine Urobilinogen Normal (NORMAL) 05/15/22 03:00 Ur Leukocyte Esterase Negative (NEGATIVE) 05/15/22 03:00 Urine RBC None seen /HPF (0-3) 05/15/22 03:00 Urine WBC None seen /HPF (0-5) 05/15/22 03:00 Ur Squamous Epith Cells Rare /HPF (NEGATIVE) 05/15/22 03:00 Urine Bacteria Negative /HPF (NEGATIVE) 05/15/22 03:00 Ur Culture Indicated? No/not indicated 05/15/22 03:00 SARS-CoV-2 (PCR) Negative (NEGATIVE) 05/12/22 08:20 Influenza Type A (PCR) Negative (NEGATIVE) 05/12/22 08:20 Influenza Type B (PCR) Negative (NEGATIVE) 05/12/22 08:20 RSV (PCR) Positive (NEGATIVE) A 05/12/22 08:20 Plan (1) Generalized weakness: Status: Acute (2) Dehydration: Status: Acute (3) Acute on chronic renal failure: Status: Acute (4) Acute and chronic respiratory failure: Status: Acute (5) COPD exacerbation: Status: Acute (6) RSV infection: Status: Acute (7) CHF exacerbation: Status: Acute (8) Pneumonia: Status: Acute (9) CAD (coronary artery disease): Status: Chronic Qualifiers: Associated angina: unspecified whether angina present Coronary Disease- Associated Artery/Lesion type: unspecified vessel or lesion type [place] vs. transplanted heart: [place] heart Qualified Code(s): I25.10 - Atherosclerotic heart disease of [place] coronary artery without angina pectoris
[2022-05-18] MEDS: VISTARIL PO PRN (20:33)
[2022-05-18] MEDS: PLAVIX PO SCH (20:33)
[2022-05-18] MEDS: PRAVACHOL PO SCH (20:34)
[2022-05-19] MEDS: PROVENTIL NEB TX 0.083% 2.5MG/ 3ML NEB SCH ×3 (00:55→09:50)
[2022-05-19] MEDS: REQUIP PO SCH (05:14)
[2022-05-19 06:18] LABS: BLOOD UREA NITROGEN 50 mg/dL (7-18); CALCIUM 7.4 mg/dL (8.5-10.1); CARBON DIOXIDE 34.4 mmol/L (21-32); CHLORIDE 106 mmol/L (98-107); CREATININE 1.62 mg/dL (0.55-1.02); SODIUM 144 mmol/L (136-145); eGFR NON BLACK RACES 32 (>60)
[2022-05-19 06:23] LABS: BASOPHILS % (AUTO) 0.1 % (0.2-1.0); EOSINOPHILS % (AUTO) 0.2 % (0.9-2.9); HEMATOCRIT 27.6 % (36.0-47.0); HEMOGLOBIN 9.4 g/dL (12.0-16.0); LYMPHOCYTES # (AUTO) 1.1 X10^3/uL (1.3-2.9); LYMPHOCYTES % (AUTO) 14.7 % (21.0-51.0); MEAN CORPUSCULAR HEMOGLOBIN 29.3 pg (27.0-34.0); MEAN CORPUSCULAR HGB CONC 34.2 g/dL (33.0-35.0); MEAN CORPUSCULAR VOLUME 85.6 fL (80.0-100.0); MEAN PLATELET VOLUME 9.5 fL (7.4-11.0); MONOCYTES # (AUTO) 0.9 x10^3/uL (0.3-0.8); MONOCYTES % (AUTO) 12.5 % (0.0-13.0); NEUTROPHILS # (AUTO) 5.3 x10^3/uL (2.2-4.8); NEUTROPHILS % (AUTO) 72.5 % (42.0-75.0); RED BLOOD COUNT 3.23 X10^6/uL (3.5-5.4); RED CELL DISTRIBUTION WIDTH 15.2 % (11.6-16.5); WHITE BLOOD COUNT 7.3 X10^3/uL (3.6-10.0)
[2022-05-19 09:23] VITALS: BMI 26.4
[2022-05-19] MEDS: ZOSYN VIAL 3.375 GRAMS 3.375 G in NS 100 ML IV 100 ML IV SCH (09:29)
[2022-05-19] MEDS: LASIX IVP SCH (09:30)
[2022-05-19] MEDS: SOLU-Medrol 40 MG VIAL IVP SCH (09:34)
[2022-05-19] MEDS: LOVENOX INJ 30 MG SYR SC SCH (09:35)
[2022-05-19] MEDS: SINGULAIR TAB 10 MG PO SCH (09:35)
[2022-05-19] MEDS: ARICEPT TAB 10 MG PO SCH (09:35)
[2022-05-19] MEDS: NEURONTIN CAP 100 MG PO SCH (09:36)
[2022-05-19] MEDS: EFFEXOR XR 37.5 MG CAP 24-HR PO SCH (09:36)
[2022-05-19] MEDS: PROTONIX TAB 40 MG PO SCH (09:36)
[2022-05-19] MEDS: ASPIRIN EC 81 MG PO SCH (09:36)
[2022-05-19] MEDS: CORDARONE TAB 200 MG PO SCH (09:37)
[2022-05-19] MEDS: COREG TAB 3.125 MG PO SCH (09:37)
[2022-05-19] MEDS: NAMENDA TAB 10 MG PO SCH (09:38)
[2022-05-19] MEDS: FERROUS GLUCONATE PO SCH (09:38)
[2022-05-19] MEDS: PULMICORT NEB TX 0.5 MG NEB SCH (09:50)
--- NOTE | 2022-05-19 11:07 | W.DIS.FURT ---
Summary of Discharge Admission Diagnosis Patient Problems (Updated 05/18/22 @ 13:14 by Priscilla Lowe) RSV infection (Acute) B33.8 COPD exacerbation (Acute) J44.1 Vital Signs: Vital Signs (72 hours) 05/16/22 12:00 05/16/22 13:00 05/16/22 14:00 Temperature Pulse Rate Pulse Rate [Apical] 78 81 79 Respiratory Rate 14 19 16 Blood Pressure [Left Arm] 157/66 169/71 143/56 Blood Pressure [Right Arm] O2 Sat by Pulse Oximetry 98 100 99 Oxygen Delivery Method Nasal Cannula Nasal Cannula Nasal Cannula Oxygen Flow Rate FIO2% 05/16/22 15:00 05/16/22 16:00 05/16/22 17:00 Temperature 98.1 F Pulse Rate Pulse Rate [Apical] 80 86 88 Respiratory Rate 18 23 18 Blood Pressure [Left Arm] 163/67 196/77 184/75 Blood Pressure [Right Arm] O2 Sat by Pulse Oximetry 99 97 99 Oxygen Delivery Method Nasal Cannula Nasal Cannula Nasal Cannula Oxygen Flow Rate FIO2% 05/16/22 18:00 05/16/22 19:00 05/16/22 19:00 Temperature Pulse Rate Pulse Rate [Apical] 83 80 Respiratory Rate 17 10 L Blood Pressure [Left Arm] 175/70 177/69 Blood Pressure [Right Arm] O2 Sat by Pulse Oximetry 99 99 Oxygen Delivery Method Nasal Cannula Nasal Cannula Nasal Cannula Oxygen Flow Rate FIO2% 05/16/22 20:00 05/16/22 21:00 05/16/22 22:00 Temperature Pulse Rate Pulse Rate [Apical] 78 84 87 Respiratory Rate 12 14 14 Blood Pressure [Left Arm] Blood Pressure [Right Arm] 89/51 88/47 84/53 O2 Sat by Pulse Oximetry 100 99 99 Oxygen Delivery Method Nasal Cannula Nasal Cannula Nasal Cannula Oxygen Flow Rate FIO2% 05/16/22 20:00 05/16/22 20:00 05/17/22 00:10 Temperature Pulse Rate 78 70 Pulse Rate [Apical] Respiratory Rate Blood Pressure [Left Arm] Blood Pressure [Right Arm] O2 Sat by Pulse Oximetry 98 98 Oxygen Delivery Method Nasal Cannula Oxygen Flow Rate 3 FIO2% 32 05/16/22 23:00 05/17/22 00:00 05/17/22 01:00 Temperature 98.0 F Pulse Rate Pulse Rate [Apical] 83 79 79 Respiratory Rate 17 12 15 Blood Pressure [Left Arm] 171/67 138/55 156/59 Blood Pressure [Right Arm] O2 Sat by Pulse Oximetry 97 98 100 Oxygen Delivery Method Nasal Cannula Nasal Cannula Nasal Cannula Oxygen Flow Rate FIO2% 05/17/22 02:00 05/17/22 03:00 05/17/22 04:00 Temperature 98.5 F Pulse Rate Pulse Rate [Apical] 79 77 79 Respiratory Rate 14 21 19 Blood Pressure [Left Arm] 149/64 163/75 171/65 Blood Pressure [Right Arm] O2 Sat by Pulse Oximetry 98 99 100 Oxygen Delivery Method Nasal Cannula Nasal Cannula Nasal Cannula Oxygen Flow Rate FIO2% 05/17/22 05:00 05/17/22 06:00 05/17/22 06:24 Temperature Pulse Rate 76 Pulse Rate [Apical] 75 75 Respiratory Rate 15 14 Blood Pressure [Left Arm] 151/58 115/58 Blood Pressure [Right Arm] O2 Sat by Pulse Oximetry 100 100 100 Oxygen Delivery Method Nasal Cannula Nasal Cannula Oxygen Flow Rate FIO2% 05/17/22 07:00 05/17/22 08:00 05/17/22 08:00 Temperature Pulse Rate 78 Pulse Rate [Apical] Respiratory Rate Blood Pressure [Left Arm] Blood Pressure [Right Arm] O2 Sat by Pulse Oximetry 99 Oxygen Delivery Method Nasal Cannula Nasal Cannula Oxygen Flow Rate 3 FIO2% 32 05/17/22 07:00 05/17/22 08:00 05/17/22 09:00 Temperature 98.2 F Pulse Rate Pulse Rate [Apical] 76 80 80 Respiratory Rate 20 22 19 Blood Pressure [Left Arm] 134/62 190/75 207/81 Blood Pressure [Right Arm] O2 Sat by Pulse Oximetry 99 98 99 Oxygen Delivery Method Nasal Cannula Nasal Cannula Nasal Cannula Oxygen Flow Rate FIO2% 05/17/22 10:00 05/17/22 11:00 05/17/22 12:00 Temperature 98.2 F Pulse Rate Pulse Rate [Apical] 81 79 80 Respiratory Rate 16 16 17 Blood Pressure [Left Arm] 189/74 183/104 195/77 Blood Pressure [Right Arm] O2 Sat by Pulse Oximetry 99 98 98 Oxygen Delivery Method Nasal Cannula Nasal Cannula Nasal Cannula Oxygen Flow Rate FIO2% 05/17/22 13:00 05/17/22 14:00 05/17/22 15:00 Temperature 97.9 F Pulse Rate Pulse Rate [Apical] 80 75 78 Respiratory Rate 20 18 16 Blood Pressure [Left Arm] 173/79 162/62 145/91 Blood Pressure [Right Arm] O2 Sat by Pulse Oximetry 99 99 99 Oxygen Delivery Method Nasal Cannula Nasal Cannula Nasal Cannula Oxygen Flow Rate FIO2% 05/17/22 15:40 05/17/22 16:00 05/17/22 16:18 Temperature 98.4 F 98.4 F 98.4 F Pulse Rate Pulse Rate [Apical] 77 77 77 Respiratory Rate 18 18 18 Blood Pressure [Left Arm] 152/74 152/74 152/74 Blood Pressure [Right Arm] O2 Sat by Pulse Oximetry 96 96 96 Oxygen Delivery Method Nasal Cannula Nasal Cannula Nasal Cannula Oxygen Flow Rate FIO2% 05/17/22 19:00 05/17/22 20:05 05/17/22 20:05 Temperature Pulse Rate 76 Pulse Rate [Apical] Respiratory Rate Blood Pressure [Left Arm] Blood Pressure [Right Arm] O2 Sat by Pulse Oximetry 96 Oxygen Delivery Method Nasal Cannula Nasal Cannula Oxygen Flow Rate 3 FIO2% 32 05/17/22 23:55 05/18/22 00:00 05/17/22 20:00 Temperature 99.0 F 98.5 F 98.2 F Pulse Rate Pulse Rate [Apical] 82 75 81 Respiratory Rate 18 20 18 Blood Pressure [Left Arm] 140/89 163/65 151/66 Blood Pressure [Right Arm] O2 Sat by Pulse Oximetry 96 98 97 Oxygen Delivery Method Nasal Cannula Nasal Cannula Oxygen Flow Rate 3 3 FIO2% 05/18/22 03:32 05/18/22 07:00 05/18/22 09:25 Temperature 98.6 F Pulse Rate Pulse Rate [Apical] 71 Respiratory Rate 18 Blood Pressure [Left Arm] 146/64 Blood Pressure [Right Arm] O2 Sat by Pulse Oximetry 97 Oxygen Delivery Method Nasal Cannula Nasal Cannula Oxygen Flow Rate 3 FIO2% 32 05/18/22 09:25 05/18/22 08:00 05/18/22 12:00 Temperature 97.5 F L 97.8 F Pulse Rate 93 H Pulse Rate [Apical] 70 76 Respiratory Rate 18 18 Blood Pressure [Left Arm] 142/58 142/63 Blood Pressure [Right Arm] O2 Sat by Pulse Oximetry 96 95 94 L Oxygen Delivery Method Nasal Cannula Nasal Cannula Oxygen Flow Rate 2 2 FIO2% 05/18/22 16:00 05/18/22 21:03 05/18/22 21:03 Temperature 97.8 F Pulse Rate 80 Pulse Rate [Apical] 72 Respiratory Rate 18 Blood Pressure [Left Arm] 121/51 Blood Pressure [Right Arm] O2 Sat by Pulse Oximetry 94 L 94 L Oxygen Delivery Method Nasal Cannula Nasal Cannula Oxygen Flow Rate 2 3 FIO2% 32 05/18/22 20:00 05/18/22 19:00 05/18/22 23:50 Temperature 97.8 F 97.9 F Pulse Rate Pulse Rate [Apical] 79 79 Respiratory Rate 18 18 Blood Pressure [Left Arm] 140/62 141/61 Blood Pressure [Right Arm] O2 Sat by Pulse Oximetry 96 98 Oxygen Delivery Method Nasal Cannula Nasal Cannula Room Air Oxygen Flow Rate 2 2 FIO2% 05/19/22 04:00 05/19/22 07:00 05/19/22 08:00 Temperature 97.8 F 98.3 F Pulse Rate Pulse Rate [Apical] 69 72 Respiratory Rate 18 18 Blood Pressure [Left Arm] 139/64 159/62 Blood Pressure [Right Arm] O2 Sat by Pulse Oximetry 99 92 L Oxygen Delivery Method Nasal Cannula Nasal Cannula Nasal Cannula Oxygen Flow Rate 2 2 FIO2% 05/19/22 09:50 Temperature Pulse Rate Pulse Rate [Apical] Respiratory Rate Blood Pressure [Left Arm] Blood Pressure [Right Arm] O2 Sat by Pulse Oximetry Oxygen Delivery Method Nasal Cannula Oxygen Flow Rate 3 FIO2% 32 Labs: Laboratory Last Values WBC 7.3 X10^3/uL (3.6-10.0) 05/19/22 05:15 RBC 3.23 X10^6/uL (3.5-5.4) L 05/19/22 05:15 Hgb 9.4 g/dL (12.0-16.0) L 05/19/22 05:15 Hct 27.6 % (36.0-47.0) L 05/19/22 05:15 MCV 85.6 fL (80.0-100.0) 05/19/22 05:15 MCH 29.3 pg (27.0-34.0) 05/19/22 05:15 MCHC 34.2 g/dL (33.0-35.0) 05/19/22 05:15 RDW 15.2 % (11.6-16.5) 05/19/22 05:15 Plt Count 178 X10^3/uL (150.0-450.0) 05/19/22 05:15 Plt Count Comment Adequate (ADEQUATE) 05/16/22 04:28 MPV 9.5 fL (7.4-11.0) 05/19/22 05:15 Neut % (Auto) 72.5 % (42.0-75.0) 05/19/22 05:15 Lymph % (Auto) 14.7 % (21.0-51.0) L 05/19/22 05:15 [place] % (Auto) 12.5 % (0.0-13.0) 05/19/22 05:15 Eos % (Auto) 0.2 % (0.9-2.9) L 05/19/22 05:15 Baso % (Auto) 0.1 % (0.2-1.0) L 05/19/22 05:15 Neut # (Auto) 5.3 x10^3/uL (2.2-4.8) H 05/19/22 05:15 Lymph # (Auto) 1.1 X10^3/uL (1.3-2.9) L 05/19/22 05:15 [place] # (Auto) 0.9 x10^3/uL (0.3-0.8) H 05/19/22 05:15 Eos # (Auto) 0.0 x10^3/uL (0.0-0.2) 05/19/22 05:15 Baso # (Auto) 0.0 X10^3/uL (0.0-0.1) 05/19/22 05:15 Absolute Nucleated RBC 0.0 /100WBC 05/19/22 05:15 Total Counted 100 05/16/22 04:28 Neutrophils % (Manual) 90 % (39-76) H 05/16/22 04:28 Band Neutrophils % 1 % (0-10) 05/16/22 04:28 Lymphocytes % (Manual) 6 % (13-43) L 05/16/22 04:28 Monocytes % (Manual) 3 % (4-9) L 05/16/22 04:28 Plt Morphology Comment Normal (NORMAL) 05/16/22 04:28 RBC Morphology Normal (NORMAL) 05/16/22 04:28 Sample Site R rad 05/15/22 01:00 EST ABG pH 7.360 (7.35-7.45) 05/15/22 01:00 EST ABG pCO2 52.0 mmHg (35.0-45.0) H* 05/15/22 01:00 EST ABG pO2 141.0 mmHg (80.0-100.0) H 05/15/22 01:00 EST ABG HCO3 29.4 mmol/L (22-26) H 05/15/22 01:00 EST ABG O2 Saturation 99.0 % (90-100) 05/15/22 01:00 EST ABG Base Excess 3.0 mmol/L (-2.0-2.0) H 05/15/22 01:00 EST Jeff Test Pos 05/15/22 01:00 EST A-a Gradient 151.0 mmHg 05/15/22 01:00 EST FiO2 50.0 05/15/22 01:00 EST Blood Gas Comments Shanna well 05/15/22 01:00 EST Sodium 144 mmol/L (136-145) 05/19/22 05:15 Corrected Sodium TNP 05/19/22 05:15 Potassium 4.1 mmol/L (3.5-5.1) 05/19/22 05:15 Chloride 106 mmol/L (98-107) 05/19/22 05:15 Carbon Dioxide 34.4 mmol/L (21-32) H 05/19/22 05:15 BUN 50 mg/dL (7-18) H 05/19/22 05:15 Creatinine 1.62 mg/dL (0.55-1.02) H 05/19/22 05:15 Est GFR (MDRD) Af Amer 39 (>60) L 05/19/22 05:15 Est GFR (MDRD) Non-Af 32 (>60) L 05/19/22 05:15 Glucose 105 mg/dL (65-99) H 05/19/22 05:15 POC Glucose (mg/dL) 99 mg/dL (65-99) 05/19/22 05:18 Calcium 7.4 mg/dL (8.5-10.1) L 05/19/22 05:15 Corrected Calcium 8.6 mg/dL (8.5-10.1) 05/17/22 04:19 Total Bilirubin 0.30 mg/dL (0.2-1.0) 05/17/22 04:19 AST 13 Units/L (15-37) L 05/17/22 04:19 ALT 21 Units/L (12-78) 05/17/22 04:19 Alkaline Phosphatase 46 Units/L (46-116) 05/17/22 04:19 Troponin I High Sens 35.8 ng/L (4.0-60.0) 05/12/22 08:24 B-Natriuretic Peptide 285 pg/mL (0-79) H 05/16/22 04:28 Total Protein 6.0 g/dL (6.4-8.2) L 05/17/22 04:19 Albumin 3.0 g/dL (3.4-5.0) L 05/17/22 04:19 Globulin 3.0 g/dL (2.5-4.5) 05/17/22 04:19 Albumin/Globulin Ratio 1.0 Ratio (1.1-2.1) L 05/17/22 04:19 Specimen Type Catherized urine 05/15/22 03:00 Urine Color Pale yellow (YELLOW) 05/15/22 03:00 Urine Appearance Clear (CLEAR) 05/15/22 03:00 Urine pH 5.0 (5.0 - 8.0) 05/15/22 03:00 Ur Specific Ehrhardt 1.025 (1.000-1.030) 05/15/22 03:00 Urine Protein 3+ (NEGATIVE) 05/15/22 03:00 Urine Glucose (UA) Negative (NEGATIVE) 05/15/22 03:00 Urine Ketones Negative (NEGATIVE) 05/15/22 03:00 Urine Blood Negative (NEGATIVE) 05/15/22 03:00 Urine Nitrite Negative (NEGATIVE) 05/15/22 03:00 Urine Bilirubin Negative (NEGATIVE) 05/15/22 03:00 Urine Urobilinogen Normal (NORMAL) 05/15/22 03:00 Ur Leukocyte Esterase Negative (NEGATIVE) 05/15/22 03:00 Urine RBC None seen /HPF (0-3) 05/15/22 03:00 Urine WBC None seen /HPF (0-5) 05/15/22 03:00 Ur Squamous Epith Cells Rare /HPF (NEGATIVE) 05/15/22 03:00 Urine Bacteria Negative /HPF (NEGATIVE) 05/15/22 03:00 Ur Culture Indicated? No/not indicated 05/15/22 03:00 SARS-CoV-2 (PCR) Negative (NEGATIVE) 05/12/22 08:20 Influenza Type A (PCR) Negative (NEGATIVE) 05/12/22 08:20 Influenza Type B (PCR) Negative (NEGATIVE) 05/12/22 08:20 RSV (PCR) Positive (NEGATIVE) A 05/12/22 08:20 Reason For Visit: PNEUMONIA, COPD Discharge Diagnosis All Active Problems (Updated 05/18/22 @ 13:14 by Priscilla Lowe) Generalized weakness (Acute) Acute on chronic renal failure (Acute) Dehydration (Acute) Pneumonia (Acute) CHF exacerbation (Acute) Acute and chronic respiratory failure (Acute) Contusion of head (Acute) Skin tear of left elbow without complication (Acute) Chest pain (Acute) COPD with acute exacerbation (Acute) Bronchitis (Acute) RSV infection (Acute) COPD exacerbation (Acute) Anemia (Chronic) Elevation of cardiac enzymes (Chronic) Urinary tract infection (Acute) Acute alteration in mental status (Acute) Mild congestive heart failure (Chronic) Dehydration, mild (Acute) CAD (coronary artery disease) (Chronic) Hyperchloremia (Acute) CAD (coronary artery disease) (Chronic) Hyperkalemia (Acute) Depression (Chronic) Restless leg syndrome (Chronic) Congestive heart failure (Chronic) COPD (chronic obstructive pulmonary disease) with acute bronchitis (Chronic) Chronic kidney disease (Chronic) Plan of Treatment: Continue with present treatment and follow up plan. Pt is to keep follow up appointment as instructed and take medications as ordered. Discharge Medications Discharge Medications: levofloxacin [From Levaquin] Allergy (Verified 07/11/19 23:02) CONTINUE taking the following medications B.coagulan,subtilis 1 bill. cell-inulin 1 gram-vit C 15 mg chew tablet (Culturelle Probiotic-Prebiotic) 1 tab PO DAILY 05/12/22 [History] acetaminophen 300 mg-codeine 30 mg tablet 1 tab PO Q6H PRN 05/12/22 [History] aspirin 81 mg tablet,delayed release 81 mg PO DAILY 05/12/22 [History] azithromycin 500 mg tablet 1 tab PO QDAY 05/12/22 [History] docusate sodium 100 mg capsule 10 mg PO BID PRN 05/12/22 [History] donepezil 10 mg disintegrating tablet 1 tab PO QDAY 05/12/22 [History] ferrous sulfate 325 mg (65 mg iron) tablet 325 mg PO DAILY 05/12/22 [History] memantine 10 mg tablet 1 tab PO BID 05/12/22 [History] ondansetron HCl 4 mg tablet 1 mg PO Q8H PRN 05/12/22 [History] New Prescriptions cefdinir 300 mg capsule 300 mg PO BID 5 days #10 caps 05/19/22 [Rx] hydroxyzine pamoate 25 mg capsule 25 mg PO BID PRN Anxiety 30 days #60 caps 05/19/22 [Rx] methylprednisolone 4 mg tablets in a dose pack See Rx Instructions PO .COMPLEX #21 ea 05/19/22 [Rx] Discharge Disposition Assessment: No acute distress noted at discharge. Discharge Plan Discharge Plan Patient Disposition: 50 DISCHARGED TO HOSPICE -HOME Condition: Stable Health Concerns: Post Hospitalization: new medications and changes needed to prevent readmission or further decline. Pt educated and given instructions on all concerns. Care Plan Goals: Problem: Respiratory Complications Goal: Improved Uncomplicated Respiratory Status Instructions: Follow provided instructions. Follow up with primary physician as directed. Contact primary care physician or report to the closest Emergency Room if condition worsens. Plan of Treatment: Continue with present treatment and follow up plan. Pt is to keep follow up appointment as instructed and take medications as ordered. Assessment: No acute distress noted at discharge. Prescription drug monitoring program results: PDMP reviewed and no concerns identified Prescriptions: New hydroxyzine pamoate 25 mg Capsule 25 mg PO BID PRN (Reason: Anxiety) 30 Days Qty: 60 0RF cefdinir 300 mg capsule 300 mg PO BID 5 Days Qty: 10 0RF methylprednisolone 4 mg tablets,dose pack See Rx Instructions .ROUTE .COMPLEX Qty: 21 0RF Rx Instructions: orally per package directions Continued venlafaxine 75 mg tablet 75 mg PO DAILY pravastatin 40 mg tablet 40 mg PO HS famotidine 40 mg tablet 40 mg PO BID pantoprazole 40 mg tablet,delayed release (DR/EC) 40 mg PO BID clopidogrel 75 mg tablet 75 mg PO HS ropinirole 0.5 mg tablet 0.5 mg PO TID amiodarone 200 mg Tablet 100 mg PO DAILY montelukast 10 mg tablet 10 mg PO DAILY furosemide 20 mg tablet 20 mg PO DAILY Hemocyte-Plus 106 mg iron- 1 mg Capsule 1 cap PO DAILY gabapentin 100 mg capsule 200 mg PO BID Label Comments: TAKE 2 CAPSULES BY MOUTH TWICE DAILY albuterol sulfate 2.5 mg /3 mL (0.083 %) Solution For Nebulization 2.5 mg continuous nebulization Q6H PRN carvedilol 3.125 mg tablet 3.125 mg PO BID 30 Days Qty: 60 0RF Label Comments: TAKE 2 TABLETS BY MOUTH TWICE DAILY ondansetron HCl [Zofran] 4 mg Tablet 1 mg PO Q8H PRN acetaminophen-codeine 300-30 mg Tablet 1 tab PO Q6H PRN aspirin 81 mg Tablet,Delayed Release (Dr/Ec) 81 mg PO DAILY ferrous sulfate 325 mg (65 mg iron) Tablet 325 mg PO DAILY docusate sodium 100 mg Capsule 10 mg PO BID PRN memantine 10 mg tablet 1 tab PO BID donepezil 10 mg tablet,disintegrating 1 tab PO QDAY Culturelle Probiotic-Prebiotic 1 billion cell- 1 gram-15 mg Tablet,Chewable 1 tab PO DAILY Discontinued azithromycin 500 mg tablet 1 tab PO QDAY Follow ups/Referrals Follow ups/Referrals: [facility] [Other] - 1 WEEK (Services will resume when patient is discharged home.) Edd Alba [STAFF PHYSICIAN] - 1 WEEK (hospital follow up ) Instructions Instructions: Chronic Obstructive Pulmonary Disease Exacerbation, [id number], Heart Failure, Self Care, [id number], How to Use an Incentive Spirometer, Weakness, [id number], Respiratory Syncytial Virus Infection, Adult, Community- Acquired Pneumonia, Adult, [id number] Stand Alone Forms: Precautions for COVID19, [facility], Patient Portal, Social Distancing
[2022-05-19 14:13] VITALS: BP 149/60
== END 2022-05-19 15:35 | disposition hospice, home (50) | DRG 190 ==
LOC: ICU 07:31 → ER 07:31 → ICU 12:25 → MED/SURG 05-17 15:53
PROVIDERS: ADMIT Family Medicine; ATTEND Family Medicine
DX: J96.20 Acute and chronic respiratory failure, unspecified whether with hypoxia or hypercapnia; E87.5 Hyperkalemia; N18.9 Chronic kidney disease, unspecified; J20.8 Acute bronchitis due to other specified organisms; R26.89 Other abnormalities of gait and mobility; E86.0 Dehydration; I50.9 Heart failure, unspecified; J44.0 Chronic obstructive pulmonary disease with (acute) lower respiratory infection; I25.10 Atherosclerotic heart disease of native coronary artery without angina pectoris; J18.9 Pneumonia, unspecified organism; R94.31 Abnormal electrocardiogram [ECG] [EKG]; R53.1 Weakness; B97.4 Respiratory syncytial virus as the cause of diseases classified elsewhere; Z99.81 Dependence on supplemental oxygen; Z20.822 Contact with and (suspected) exposure to COVID-19; N17.8 Other acute kidney failure; K21.9 Gastro-esophageal reflux disease without esophagitis; J44.1 Chronic obstructive pulmonary disease with (acute) exacerbation

== ENCOUNTER 2023-01-06 13:46 | Inpatient (IN) ==
--- NOTE | 2023-01-06 14:01 | DR.GENAD ---
HPI Time Seen Time Seen by Provider: 01/06/23 13:59 Complaint/Symptoms Chief Complaint Doctors Comments: PATIENT HAS BEEN WEAK FOR 2-3 DAYS, WAS SEEN AT PCP OFFICE THIS AM AND SENT OVER FOR FURTHER EVALUATION. BLOOD PRESSURE WAS A LITTLE LOW AND 02 SAT WAS 95%. PATIENT IS ON 2L O2 AT HOME AT NIGHT . DENIED CHEST PAIN OR SOB. PMH PMH Past Medical History: Anemia, Arthritis, Asthma, CHF, COPD, Coronary Artery Disease, Dyslipidemia, GERD, Hypertension and ND Past Surgical History: Yes Surgical History: Angioplasty/Stents, Cholecystectomy, Hysterectomy, Tonsillectomy and Other Family History Family Medical History: Diabetes Mellitus, Cancer, ND, Coronary Artery Disease, Sudden Cardiac and Hypertension Social History Do you use any recreational Drugs:: No ROS Review of Systems Constitutional: Malaise, Weakness and Other (HYPOTENSIVE) Eyes: No Symptoms Reported ENTM: No Symptoms Reported Respiratoy: No Symptoms Reported Cardiovascular: No Symptoms Reported Gastrointestinal/Abdominal: No Symptoms Reported Genitourinary: No Symptoms Reported Neurological: No Symptoms Reported Musculoskeletal: No Symptoms Reported Integumentary: No Symptoms Reported Hematologic/Lymphatic: No Symptoms Reported Endocrine: No Symptoms Reported Psychiatric: No Symptoms Reported PE Vital Signs Vitals: Vital Signs Temperature 99.2 F Pulse Rate 71 Pulse Rate 71 Pulse Rate 71 Pulse Rate 69 Pulse Rate 69 Pulse Rate 69 Pulse Rate 69 Pulse Rate 70 Pulse Rate 69 Pulse Rate 67 Pulse Rate 67 Pulse Rate 68 Pulse Rate 68 Pulse Rate 68 Pulse Rate 66 Pulse Rate 67 Pulse Rate 66 Pulse Rate 66 Pulse Rate 66 Pulse Rate 66 Pulse Rate 66 Pulse Rate 65 Pulse Rate 66 Pulse Rate 24 Respiratory Rate 12 Respiratory Rate 15 Respiratory Rate 13 Respiratory Rate 12 Respiratory Rate 12 Respiratory Rate 13 Respiratory Rate 20 Respiratory Rate 20 Respiratory Rate 13 Respiratory Rate 17 Respiratory Rate 16 Respiratory Rate 14 Respiratory Rate 17 Respiratory Rate 15 Respiratory Rate 19 Respiratory Rate 28 Respiratory Rate 21 Respiratory Rate 19 Respiratory Rate 13 Respiratory Rate 22 Respiratory Rate 17 Respiratory Rate 20 Respiratory Rate 15 Respiratory Rate 20 Blood Pressure 95/53 Blood Pressure 96/54 Blood Pressure 104/51 Blood Pressure 103/53 Blood Pressure 93/54 Blood Pressure 96/51 Blood Pressure 99/49 Blood Pressure 98/54 Blood Pressure 108/52 Blood Pressure 93/51 Blood Pressure 93/51 Blood Pressure 90/54 Blood Pressure 94/51 Blood Pressure 105/49 Blood Pressure 82/49 Blood Pressure 81/46 Blood Pressure 95/53 Blood Pressure 106/63 Blood Pressure 66/41 O2 Sat by Pulse Oximetry 93 O2 Sat by Pulse Oximetry 93 O2 Sat by Pulse Oximetry 94 O2 Sat by Pulse Oximetry 94 O2 Sat by Pulse Oximetry 94 O2 Sat by Pulse Oximetry 93 O2 Sat by Pulse Oximetry 94 O2 Sat by Pulse Oximetry 93 O2 Sat by Pulse Oximetry 93 O2 Sat by Pulse Oximetry 93 O2 Sat by Pulse Oximetry 93 O2 Sat by Pulse Oximetry 93 O2 Sat by Pulse Oximetry 93 O2 Sat by Pulse Oximetry 93 O2 Sat by Pulse Oximetry 93 O2 Sat by Pulse Oximetry 94 O2 Sat by Pulse Oximetry 95 O2 Sat by Pulse Oximetry 93 O2 Sat by Pulse Oximetry 93 O2 Sat by Pulse Oximetry 93 O2 Sat by Pulse Oximetry 93 O2 Sat by Pulse Oximetry 92 O2 Sat by Pulse Oximetry 93 General Limitations: Physical Limitation (WEAKNESS) General Appearance: In Distress (MILD DISTRESS) Head Head Exam: Normal Inspection, Atraumatic and Normocephalic Eyes Eye exam: Normal Appearance, PERRL and EOMI ENT ENT Exam: Normal Exam and Normal Oropharynx External Ear Exam: Normal External Inspection TM/Canal Exam: Bilateral: Normal Nose Exam: Normal Nose Exam Mouth Exam: Normal Inspection Throat Exam: Normal Inspection Neck Neck Exam: Normal Inspection Chest Chest Inspection: Normal Inspection and Symmetric Chest Wall Rise Respiratory Respiratory Exam: Normal Lung Sounds Bilat Respiratory Exam: Bilateral: Clear to Auscultation Cardiovascular Cardiovascular Exam: Regular Rate and Normal Rhythm Abdominal Exam Abdominal Exam: Normal Inspection, Normal Bowel Sounds and Soft Extremities Extremities Exam: Normal Inspection and Full ROM Back Back Exam: Normal Inspection and Full ROM Neurologic Neurological Exam: Alert, Oriented X3 and CN II-XII Intact Psychiatric Psychiatric Exam: Depressed Skin Skin Exam: Warm, Dry and Intact MDM Differential Diagnosis Differential Diagnosis: HYPOTENSION,UTI,HYPOXIA,AMI COURSE Treatment Treatment: patient remained relatively stable during er evaluation. had slightly low blood pressure of 96/71 on initial evaluation. was given 1 liter of nacl and bp increased to 104/60. PATIENT WAS ALSO GIVE ROCEPHINE 1 GRAM IV FOR UTI. DR SOLORZANO WAS CALLED TO ADMIT TO OBSERVATION FOR DEHYDRATION,UTI AND RENAL INSUFFIENCY. PATIENT WAS TOLD ABOUT THE INTENT TO ADMIT AND SHE WAS AGREABLE TO THE ADMISSION. ROR Labs Reviewed Laboratory Results Reviewed?: Yes Result Diagrams: 01/06/23 14:35 01/06/23 14:20 Laboratory: WBC 6.9 X10^3/uL (3.6-10.0) 01/06/23 14:35 RBC 2.95 X10^6/uL (3.5-5.4) L 01/06/23 14:35 Hgb 8.5 g/dL (12.0-16.0) L 01/06/23 14:35 Hct 25.4 % (36.0-47.0) L 01/06/23 14:35 MCV 86.0 fL (80.0-100.0) 01/06/23 14:35 MCH 28.9 pg (27.0-34.0) 01/06/23 14:35 MCHC 33.6 g/dL (33.0-35.0) 01/06/23 14:35 RDW 15.7 % (11.6-16.5) 01/06/23 14:35 Plt Count 257 X10^3/uL (150.0-450.0) 01/06/23 14:35 MPV 8.0 fL (7.4-11.0) 01/06/23 14:35 Neut % (Auto) 64.7 % (42.0-75.0) 01/06/23 14:35 Lymph % (Auto) 21.0 % (21.0-51.0) 01/06/23 14:35 [place] % (Auto) 12.4 % (0.0-13.0) 01/06/23 14:35 Eos % (Auto) 1.3 % (0.9-2.9) 01/06/23 14:35 Baso % (Auto) 0.6 % (0.2-1.0) 01/06/23 14:35 Neut # (Auto) 4.5 x10^3/uL (2.2-4.8) 01/06/23 14:35 Lymph # (Auto) 1.5 X10^3/uL (1.3-2.9) 01/06/23 14:35 [place] # (Auto) 0.9 x10^3/uL (0.3-0.8) H 01/06/23 14:35 Eos # (Auto) 0.1 x10^3/uL (0.0-0.2) 01/06/23 14:35 Baso # (Auto) 0.0 X10^3/uL (0.0-0.1) 01/06/23 14:35 Absolute Nucleated RBC 0.1 /100WBC 01/06/23 14:35 D-Dimer 0.73 ug/ml (0.0-0.57) H 01/06/23 14:35 Sodium 142 mmol/L (136-145) 01/06/23 14:20 Corrected Sodium TNP 01/06/23 14:20 Potassium 4.7 mmol/L (3.5-5.1) 01/06/23 14:20 Chloride 104 mmol/L (98-107) 01/06/23 14:20 Carbon Dioxide 31.9 mmol/L (21-32) 01/06/23 14:20 BUN 20 mg/dL (7-18) H 01/06/23 14:20 Creatinine 1.71 mg/dL (0.55-1.02) H 01/06/23 14:20 Est GFR (MDRD) Af Amer 36 (>60) L 01/06/23 14:20 Est GFR (MDRD) Non-Af 30 (>60) L 01/06/23 14:20 Glucose 93 mg/dL (65-99) 01/06/23 14:20 Lactic Acid 0.4 mmol/L (0.4-2.0) 01/06/23 14:20 Calcium 8.0 mg/dL (8.5-10.1) L 01/06/23 14:20 Corrected Calcium 8.9 mg/dL (8.5-10.1) 01/06/23 14:20 Total Bilirubin 0.20 mg/dL (0.2-1.0) 01/06/23 14:20 AST 21 Units/L (15-37) 01/06/23 14:20 ALT 17 Units/L (12-78) 01/06/23 14:20 Alkaline Phosphatase 52 Units/L (46-116) 01/06/23 14:20 Creatine Kinase 61 Units/L (26-192) 01/06/23 14:20 Troponin I High Sens 22.7 ng/L (4.0-60.0) 01/06/23 14:20 Total Protein 6.1 g/dL (6.4-8.2) L 01/06/23 14:20 Albumin 2.9 g/dL (3.4-5.0) L 01/06/23 14:20 Globulin 3.2 g/dL (2.5-4.5) 01/06/23 14:20 Albumin/Globulin Ratio 0.9 Ratio (1.1-2.1) L 01/06/23 14:20 Specimen Type Catherized urine 01/06/23 14:44 Urine Color Pale yellow (YELLOW) 01/06/23 14:44 Urine Appearance Hazy (CLEAR) 01/06/23 14:44 Urine pH 6.0 (5.0 - 8.0) 01/06/23 14:44 Ur Specific [place] 1.015 (1.000-1.030) 01/06/23 14:44 Urine Protein 2+ (NEGATIVE) 01/06/23 14:44 Urine Glucose (UA) Negative (NEGATIVE) 01/06/23 14:44 Urine Ketones Negative (NEGATIVE) 01/06/23 14:44 Urine Blood 1+ (NEGATIVE) 01/06/23 14:44 Urine Nitrite Negative (NEGATIVE) 01/06/23 14:44 Urine Bilirubin Negative (NEGATIVE) 01/06/23 14:44 Urine Urobilinogen Normal (NORMAL) 01/06/23 14:44 Ur Leukocyte Esterase 2+ (NEGATIVE) 01/06/23 14:44 Urine RBC None seen /HPF (0-3) 01/06/23 14:44 Urine WBC 5-10 /HPF (0-5) A 01/06/23 14:44 Ur Squamous Epith Cells Negative /HPF (NEGATIVE) 01/06/23 14:44 Urine Bacteria 2+ /HPF (NEGATIVE) 01/06/23 14:44 Ur Culture Indicated? Yes/culture set up 01/06/23 14:44 Opioid Opioid Risk Tool Age (Michael box if 16-45): No History of Preadolescent Sexual Abuse: No Total: 0 Total Score Risk Category: Low Risk Copyright: Cornell SEGOVIA predicting aberrant behaviors Discharge Plan Diagnosis Discharge Problem: Dehydration, UTI (urinary tract infection), Chronic renal insufficiency Discharge Plan Patient Disposition: 09 ADMITTED INPATIENT Condition: Stable Prescriptions: No Action furosemide 20 mg tablet 20 mg PO BID MDD 2 30 Days Qty: 60 0RF montelukast 10 mg tablet 10 mg PO QDAY Qty: 30 3RF nystatin 100,000 unit/gram powder 1 applic topical BID 30 Days Qty: 15 0RF atorvastatin 40 mg tablet 40 mg PO QDAY Qty: 30 2RF amiodarone 100 mg tablet 100 mg PO QDAY 30 Days Qty: 30 1RF carvedilol 3.125 mg tablet 6.25 mg PO BID 30 Days Qty: 120 0RF Rx Instructions: must administer with a meal/food famotidine 40 mg tablet 40 mg PO BID 30 Days Qty: 60 2RF gabapentin 100 mg capsule 200 mg PO BID 30 Days Qty: 120 2RF ropinirole 0.5 mg tablet 0.5 mg PO TID 30 Days Qty: 90 2RF venlafaxine 75 mg tablet 75 mg PO DAILY Qty: 30 2RF levothyroxine [Synthroid] 25 mcg tablet 25 mcg PO QDAY 30 Days Qty: 30 3RF donepezil 10 mg tablet 10 mg PO QDAY 90 Days Qty: 90 0RF clopidogrel 75 mg tablet 75 mg PO HS pantoprazole 40 mg tablet,delayed release (DR/EC) 40 mg PO BID Health Concerns: Post Hospitalization: new medications and changes needed to prevent readmission or further decline. Pt educated and given instructions on all concerns. Plan of Treatment: Continue with present treatment and follow up plan. Pt is to keep follow up appointment as instructed and take medications as ordered. Orders to Discharge Patient Discharge Orders: Transfer (Routine); Ordered 01/06/23 Ordered By: Tad Joe Follow ups/Referrals Follow ups/Referrals: Edd Alba [Primary Care Provider] - 3 days
[2023-01-06] MEDS ORDERED: NS 500 ML IV 500 ML IV ONE ×4 (14:11→15:22)
--- NOTE | 2023-01-06 14:14 | EKG ---
Test Reason : CHEST PAIN Blood Pressure : */* mmHG Vent. Rate : 66 BPM Atrial Rate : 66 BPM P-R Int : 196 ms QRS Dur : 84 ms QT Int : 460 ms P-R-T Axes : 76 56 74 degrees QTc Int : 482 ms Normal sinus rhythm Septal infarct , age undetermined Abnormal ECG No previous ECGs available Confirmed by Manolo Hodge ([id number]) on 01/06/2023 6:01:15 PM Referred By: Confirmed By: Manolo Hodge
[2023-01-06 14:47] LABS: BASOPHILS % (AUTO) 0.6 % (0.2-1.0); EOSINOPHILS # (AUTO) 0.1 x10^3/uL (0.0-0.2); EOSINOPHILS % (AUTO) 1.3 % (0.9-2.9); HEMATOCRIT 25.4 % (36.0-47.0); HEMOGLOBIN 8.5 g/dL (12.0-16.0); LYMPHOCYTES # (AUTO) 1.5 X10^3/uL (1.3-2.9); MEAN CORPUSCULAR HEMOGLOBIN 28.9 pg (27.0-34.0); MEAN CORPUSCULAR HGB CONC 33.6 g/dL (33.0-35.0); MONOCYTES # (AUTO) 0.9 x10^3/uL (0.3-0.8); MONOCYTES % (AUTO) 12.4 % (0.0-13.0); NEUTROPHILS # (AUTO) 4.5 x10^3/uL (2.2-4.8); NEUTROPHILS % (AUTO) 64.7 % (42.0-75.0); PLATELET COUNT 257 X10^3/uL (150.0-450.0); RED BLOOD COUNT 2.95 X10^6/uL (3.5-5.4); RED CELL DISTRIBUTION WIDTH 15.7 % (11.6-16.5); WHITE BLOOD COUNT 6.9 X10^3/uL (3.6-10.0)
[2023-01-06 15:03] LABS: ALANINE AMINOTRANSFERASE 17 Units/L (12-78); ALBUMIN 2.9 g/dL (3.4-5.0); ALKALINE PHOSPHATASE 52 Units/L (46-116); ASPARTATE AMINO TRANSFERASE 21 Units/L (15-37); BLOOD UREA NITROGEN 20 mg/dL (7-18); CARBON DIOXIDE 31.9 mmol/L (21-32); CHLORIDE 104 mmol/L (98-107); COR CA(FOR HYPOALB) 8.9 mg/dL (8.5-10.1); CREATINE KINASE 61 Units/L (26-192); CREATININE 1.71 mg/dL (0.55-1.02); GLUCOSE 93 mg/dL (65-99); POTASSIUM 4.7 mmol/L (3.5-5.1); SODIUM 142 mmol/L (136-145); TOTAL PROTEIN 6.1 g/dL (6.4-8.2); eGFR NON BLACK RACES 30 (>60)
[2023-01-06 15:05] LABS: BILIRUBIN,URINE NEGATIVE (NEGATIVE); BLOOD/HEMOGLOBIN,URINE 1+ (NEGATIVE); GLUCOSE, URINE NEGATIVE (NEGATIVE); KETONES,URINE NEGATIVE (NEGATIVE); LEUKOCYTE ESTERASE ,URINE 2+ (NEGATIVE); NITRITES,URINE NEGATIVE (NEGATIVE); PROTEIN,URINE 2+ (NEGATIVE); UROBILINOGEN,URINE NORMAL (NORMAL)
[2023-01-06 15:05] LABS: LACTIC ACID 0.4 mmol/L (0.4-2.0)
[2023-01-06 15:16] LABS: APPEARANCE,URINE HAZY (CLEAR); COLOR,URINE PALE YELLOW (YELLOW); RBC,URINE NONE SEEN /HPF (0-3); SQUAMOUS EPITHELIAL CELL,UR NEGATIVE /HPF (NEGATIVE)
[2023-01-06 15:17] LABS: BACTERIA,URINE 2+ /HPF (NEGATIVE)
[2023-01-06] MEDS ORDERED: ROCEPHIN VIAL 1 GRAM IV ONE (15:33)
[2023-01-06] MEDS ORDERED: ROCEPHIN VIAL 1 GRAM ONE (15:34)
--- NOTE | 2023-01-06 18:27 | DR.GENAD ---
HPI Time Seen Time Seen by Provider: 01/06/23 13:59 PCP Primary Care Physician: LISA Complaint/Symptoms Chief Complaint Doctors Comments: feeling lethargic and o2 and bp are low. Chief Complaint:: PT TO ER WITH C/O FEELING SLUGGISH AND HER B/P AND 02 SATURATION BEING LOW ... 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..BR Self Treatment fo Chief Complaint: NONE COVID-19 Coronavirus risk:travel/contact w/high risk person: No Has patient experienced Coronavirus symptoms: No Source History Provided: Patient Mode of Arrival Mode of Arrival: Wheelchair Timing Onset of Chief Complaint: 01/06/23 PMH PMH Past Medical History: Yes Past Medical History: Anemia, Arthritis, Asthma, CHF, COPD, Coronary Artery Disease, Dyslipidemia, GERD, Hypertension and NE Past Surgical History: Yes Surgical History: Angioplasty/Stents, Cholecystectomy, Hysterectomy, Tonsillectomy and Other Family History History of Family Medical Conditions: Yes Family Medical History: Diabetes Mellitus, Cancer, NE, Coronary Artery Disease, Sudden Cardiac and Hypertension Social History Does patient currently use any type of tobacco product: Yes Have you used tobacco products in the last 12 months: Yes Type of Tobacco Use: Cigarettes Does any household member use tobacco: No Alcohol Use: None Do you use any recreational Drugs:: No Lives With: Family Lives Where: Home Travel Risk Coronavirus risk:travel/contact w/high risk person: No Has patient experienced Coronavirus symptoms: No Infectious screening In the last 2 months have you had wt loss of >10#?: NO Have you had fever, night sweats or hemotysis?: No Have you traveled outside the country in the last 6 months?: No Isolation: Standard ROS Review of Systems Constitutional: Malaise Eyes: No Symptoms Reported ENTM: No Symptoms Reported Respiratoy: No Symptoms Reported Cardiovascular: No Symptoms Reported Gastrointestinal/Abdominal: No Symptoms Reported Genitourinary: No Symptoms Reported Neurological: No Symptoms Reported Musculoskeletal: No Symptoms Reported Integumentary: No Symptoms Reported Hematologic/Lymphatic: No Symptoms Reported Endocrine: No Symptoms Reported Psychiatric: No Symptoms Reported PE Vital Signs Vitals: Vital Signs Temperature 99.2 F Pulse Rate 71 Pulse Rate 71 Pulse Rate 71 Pulse Rate 69 Pulse Rate 69 Pulse Rate 69 Pulse Rate 69 Pulse Rate 70 Pulse Rate 69 Pulse Rate 67 Pulse Rate 67 Pulse Rate 68 Pulse Rate 68 Pulse Rate 68 Pulse Rate 66 Pulse Rate 67 Pulse Rate 66 Pulse Rate 66 Pulse Rate 66 Pulse Rate 66 Pulse Rate 66 Pulse Rate 65 Pulse Rate 66 Pulse Rate 24 Respiratory Rate 12 Respiratory Rate 15 Respiratory Rate 13 Respiratory Rate 12 Respiratory Rate 12 Respiratory Rate 13 Respiratory Rate 20 Respiratory Rate 20 Respiratory Rate 13 Respiratory Rate 17 Respiratory Rate 16 Respiratory Rate 14 Respiratory Rate 17 Respiratory Rate 15 Respiratory Rate 19 Respiratory Rate 28 Respiratory Rate 21 Respiratory Rate 19 Respiratory Rate 13 Respiratory Rate 22 Respiratory Rate 17 Respiratory Rate 20 Respiratory Rate 15 Respiratory Rate 20 Blood Pressure 95/53 Blood Pressure 96/54 Blood Pressure 104/51 Blood Pressure 103/53 Blood Pressure 93/54 Blood Pressure 96/51 Blood Pressure 99/49 Blood Pressure 98/54 Blood Pressure 108/52 Blood Pressure 93/51 Blood Pressure 93/51 Blood Pressure 90/54 Blood Pressure 94/51 Blood Pressure 105/49 Blood Pressure 82/49 Blood Pressure 81/46 Blood Pressure 95/53 Blood Pressure 106/63 Blood Pressure 66/41 O2 Sat by Pulse Oximetry 93 O2 Sat by Pulse Oximetry 93 O2 Sat by Pulse Oximetry 94 O2 Sat by Pulse Oximetry 94 O2 Sat by Pulse Oximetry 94 O2 Sat by Pulse Oximetry 93 O2 Sat by Pulse Oximetry 94 O2 Sat by Pulse Oximetry 93 O2 Sat by Pulse Oximetry 93 O2 Sat by Pulse Oximetry 93 O2 Sat by Pulse Oximetry 93 O2 Sat by Pulse Oximetry 93 O2 Sat by Pulse Oximetry 93 O2 Sat by Pulse Oximetry 93 O2 Sat by Pulse Oximetry 93 O2 Sat by Pulse Oximetry 94 O2 Sat by Pulse Oximetry 95 O2 Sat by Pulse Oximetry 93 O2 Sat by Pulse Oximetry 93 O2 Sat by Pulse Oximetry 93 O2 Sat by Pulse Oximetry 93 O2 Sat by Pulse Oximetry 92 O2 Sat by Pulse Oximetry 93 General Limitations: Physical Limitation (LIMITED AMBULATION SECONDARY TO LETHARGY) General Appearance: In Distress (MILD DISTRESS) Head Head Exam: Normal Inspection, Atraumatic and Normocephalic Eyes Eye exam: Normal Appearance, PERRL and EOMI ENT ENT Exam: Normal Exam, Normal Oropharynx and Normal External Ear Exam External Ear Exam: Normal External Inspection TM/Canal Exam: Bilateral: Normal Nose Exam: Normal Nose Exam Mouth Exam: Normal Inspection Throat Exam: Normal Inspection Neck Neck Exam: Normal Inspection and Trachea Midline Chest Chest Inspection: Normal Inspection and Symmetric Chest Wall Rise Respiratory Respiratory Exam: Normal Lung Sounds Bilat Respiratory Exam: Bilateral: Clear to Auscultation Cardiovascular Cardiovascular Exam: Regular Rate and Normal Rhythm Abdominal Exam Abdominal Exam: Normal Inspection, Normal Bowel Sounds and Soft Extremities Extremities Exam: Normal Inspection Back Back Exam: Normal Inspection Neurologic Neurological Exam: Alert and Oriented X3 Psychiatric Psychiatric Exam: Normal Affect and Normal Mood Skin Skin Exam: Warm, Dry and Intact MDM Differential Diagnosis Differential Diagnosis: UTI,FATIGUE NOS,COPD,PNEUMONIA COURSE Treatment Treatment: PATIENT REMAINED STABLE DURING ER EVALUATION,WAS GIVEN 1LITER BOLUS OF NACL AND FOUND TO HAVE UTI AND WAS GIVEN 1 GRAM OF ROCEPHINE IV. PATIENT WAS ADMITTED TO OBSERVATION AFTER DISCUSSION WITH DR SOLORZANO. PATIENT AND PATIENT'S FAMILY WERE NOTIFIED OF THE INTENT AND WERE AGREABLE TO THE ADMISSION. ROR Labs Reviewed Laboratory Results Reviewed?: Yes Result Diagrams: 01/12/23 05:36 01/12/23 05:36 Laboratory: 01/06/23 14:35 Blood Blood Culture - Final 01/06/23 14:20 Blood Blood Culture - Final 01/06/23 14:44 Urine,Catheterized Urine Culture - Final Escherichia Coli WBC 7.8 X10^3/uL (3.6-10.0) 01/08/23 04:43 RBC 2.77 X10^6/uL (3.5-5.4) L 01/08/23 04:43 Hgb 8.1 g/dL (12.0-16.0) L 01/08/23 04:43 Hct 23.8 % (36.0-47.0) L 01/08/23 04:43 MCV 85.9 fL (80.0-100.0) 01/08/23 04:43 MCH 29.3 pg (27.0-34.0) 01/08/23 04:43 MCHC 34.1 g/dL (33.0-35.0) 01/08/23 04:43 RDW 15.6 % (11.6-16.5) 01/08/23 04:43 Plt Count 238 X10^3/uL (150.0-450.0) 01/08/23 04:43 MPV 8.4 fL (7.4-11.0) 01/08/23 04:43 Neut % (Auto) 68.3 % (42.0-75.0) 01/08/23 04:43 Lymph % (Auto) 16.4 % (21.0-51.0) L 01/08/23 04:43 [place] % (Auto) 12.7 % (0.0-13.0) 01/08/23 04:43 Eos % (Auto) 1.8 % (0.9-2.9) 01/08/23 04:43 Baso % (Auto) 0.8 % (0.2-1.0) 01/08/23 04:43 Neut # (Auto) 5.3 x10^3/uL (2.2-4.8) H 01/08/23 04:43 Lymph # (Auto) 1.3 X10^3/uL (1.3-2.9) 01/08/23 04:43 [place] # (Auto) 1.0 x10^3/uL (0.3-0.8) H 01/08/23 04:43 Eos # (Auto) 0.1 x10^3/uL (0.0-0.2) 01/08/23 04:43 Baso # (Auto) 0.1 X10^3/uL (0.0-0.1) 01/08/23 04:43 Absolute Nucleated RBC 0.0 /100WBC 01/08/23 04:43 D-Dimer 0.73 ug/ml (0.0-0.57) H 01/06/23 14:35 Sodium 146 mmol/L (136-145) H 01/08/23 04:43 Corrected Sodium 147 mmol/L (136-145) H 01/08/23 04:43 Potassium 3.5 mmol/L (3.5-5.1) 01/08/23 04:43 Chloride 109 mmol/L (98-107) H 01/08/23 04:43 Carbon Dioxide 29.4 mmol/L (21-32) 01/08/23 04:43 BUN 9 mg/dL (7-18) 01/08/23 04:43 Creatinine 1.17 mg/dL (0.55-1.02) H 01/08/23 04:43 Est GFR (MDRD) Af Amer 57 (>60) L 01/08/23 04:43 Est GFR (MDRD) Non-Af 47 (>60) L 01/08/23 04:43 Glucose 122 mg/dL (65-99) H 01/08/23 04:43 Lactic Acid 0.4 mmol/L (0.4-2.0) 01/06/23 14:20 Calcium 7.8 mg/dL (8.5-10.1) L 01/08/23 04:43 Corrected Calcium 9.1 mg/dL (8.5-10.1) 01/08/23 04:43 Total Bilirubin 0.20 mg/dL (0.2-1.0) 01/08/23 04:43 AST 16 Units/L (15-37) 01/08/23 04:43 ALT 14 Units/L (12-78) 01/08/23 04:43 Alkaline Phosphatase 51 Units/L (46-116) 01/08/23 04:43 Creatine Kinase 61 Units/L (26-192) 01/06/23 14:20 Troponin I High Sens 22.7 ng/L (4.0-60.0) 01/06/23 14:20 Total Protein 5.8 g/dL (6.4-8.2) L 01/08/23 04:43 Albumin 2.4 g/dL (3.4-5.0) L 01/08/23 04:43 Globulin 3.4 g/dL (2.5-4.5) 01/08/23 04:43 Albumin/Globulin Ratio 0.7 Ratio (1.1-2.1) L 01/08/23 04:43 Specimen Type Catherized urine 01/06/23 14:44 Urine Color Pale yellow (YELLOW) 01/06/23 14:44 Urine Appearance Hazy (CLEAR) 01/06/23 14:44 Urine pH 6.0 (5.0 - 8.0) 01/06/23 14:44 Ur Specific [place] 1.015 (1.000-1.030) 01/06/23 14:44 Urine Protein 2+ (NEGATIVE) 01/06/23 14:44 Urine Glucose (UA) Negative (NEGATIVE) 01/06/23 14:44 Urine Ketones Negative (NEGATIVE) 01/06/23 14:44 Urine Blood 1+ (NEGATIVE) 01/06/23 14:44 Urine Nitrite Negative (NEGATIVE) 01/06/23 14:44 Urine Bilirubin Negative (NEGATIVE) 01/06/23 14:44 Urine Urobilinogen Normal (NORMAL) 01/06/23 14:44 Ur Leukocyte Esterase 2+ (NEGATIVE) 01/06/23 14:44 Urine RBC None seen /HPF (0-3) 01/06/23 14:44 Urine WBC 5-10 /HPF (0-5) A 01/06/23 14:44 Ur Squamous Epith Cells Negative /HPF (NEGATIVE) 01/06/23 14:44 Urine Bacteria 2+ /HPF (NEGATIVE) 01/06/23 14:44 Ur Culture Indicated? Yes/culture set up 01/06/23 14:44 Stl Occult Blood (IFOB) Positive (NEGATIVE) A 01/08/23 03:18 SARS-CoV-2 (PCR) Negative (NEGATIVE) 01/07/23 11:23 Influenza Type A (PCR) Negative (NEGATIVE) 01/07/23 11:23 Influenza Type B (PCR) Negative (NEGATIVE) 01/07/23 11:23 RSV (PCR) Negative (NEGATIVE) 01/07/23 11:23 XRAY XRAY Interpreted by: Self (CHEST XRAY WAS NEGATIVE FOR INFILTRATE.) Opioid Opioid Risk Tool Age (Michael box if 16-45): No History of Preadolescent Sexual Abuse: No Total: 0 Total Score Risk Category: Low Risk Copyright: Cornell SEGOVIA predicting aberrant behaviors Discharge Plan Diagnosis Discharge Problem: Dehydration UTI (urinary tract infection) Qualifiers: Urinary tract infection type: acute cystitis Hematuria presence: without hematuria Qualified Code(s): N30.00 - Acute cystitis without hematuria Chronic renal insufficiency Qualifiers: Chronic kidney disease stage: stage 2 (mild) Qualified Code(s): N18.2 - Chronic kidney disease, stage 2 (mild) Discharge Plan Patient Disposition: 09 ADMITTED INPATIENT Condition: Stable
[2023-01-06] MEDS: ROCEPHIN VIAL 1 GRAM 1 G in NS 100 ML IV 100 ML IV SCH (18:50)
[2023-01-06 19:34] VITALS: BMI 27.9
[2023-01-06] MEDS: NS 1,000 ML IV 1,000 ML IV SCH (20:01)
[2023-01-06] MEDS: REQUIP PO SCH (21:02)
[2023-01-06] MEDS: NEURONTIN CAP 100 MG PO SCH (21:02)
[2023-01-06] MEDS: PLAVIX PO SCH (21:03)
[2023-01-06] MEDS: PROTONIX TAB 40 MG PO SCH (21:03)
[2023-01-06] MEDS: PEPCID TAB 40 MG PO SCH (21:03)
[2023-01-06] MEDS: VISTARIL PO PRN (21:11)
[2023-01-06] MEDS: PROVENTIL NEB TX 0.083% 2.5MG/ 3ML NEB PRN (21:15)
[2023-01-06] MEDS: PULMICORT NEB TX 0.5 MG NEB SCH (21:15)
--- NOTE | 2023-01-07 01:09 | RAD ---
HISTORYHYPOTENSION ANGIOPLASTY, STENTS, GB, HYST, TONSILS, NE, CAD, HTN, COPD, GERD, CHFSTUDYCHEST, 1 VIEWCOMPARISONFrontal chest radiograph May 16, 2022FINDINGSClips project in the left axillary region. Limited by technique and body habitus. The lungs demonstrate interstitial coarsening without confluent airspace opacity or pneumothorax. Mild curvilinear airspace infiltrate right middle lobe.IMPRESSIONChronic interstitial lung changes.Mild infiltrate right middle lobe may represent scarring, atelectasis or developing infectious process.Electronically signed by: Dexter Shepherd (Jan 07, 2023 01:07:57)
[2023-01-07] MEDS: NS 1,000 ML IV 1,000 ML IV SCH ×2 (02:53→03:02)
[2023-01-07] MEDS: REQUIP PO SCH ×3 (05:08→22:01)
[2023-01-07 05:49] LABS: BASOPHILS # (AUTO) 0.1 X10^3/uL (0.0-0.1); BASOPHILS % (AUTO) 1.1 % (0.2-1.0); EOSINOPHILS # (AUTO) 0.1 x10^3/uL (0.0-0.2); EOSINOPHILS % (AUTO) 2.4 % (0.9-2.9); HEMATOCRIT 24.5 % (36.0-47.0); HEMOGLOBIN 8.1 g/dL (12.0-16.0); LYMPHOCYTES # (AUTO) 1.2 X10^3/uL (1.3-2.9); LYMPHOCYTES % (AUTO) 22.3 % (21.0-51.0); MEAN CORPUSCULAR HEMOGLOBIN 28.5 pg (27.0-34.0); MEAN CORPUSCULAR HGB CONC 33.2 g/dL (33.0-35.0); MEAN CORPUSCULAR VOLUME 85.8 fL (80.0-100.0); MEAN PLATELET VOLUME 8.7 fL (7.4-11.0); MONOCYTES # (AUTO) 0.7 x10^3/uL (0.3-0.8); MONOCYTES % (AUTO) 12.7 % (0.0-13.0); NEUTROPHILS # (AUTO) 3.3 x10^3/uL (2.2-4.8); NEUTROPHILS % (AUTO) 61.5 % (42.0-75.0); PLATELET COUNT 240 X10^3/uL (150.0-450.0); RED BLOOD COUNT 2.86 X10^6/uL (3.5-5.4); RED CELL DISTRIBUTION WIDTH 15.7 % (11.6-16.5); WHITE BLOOD COUNT 5.3 X10^3/uL (3.6-10.0)
[2023-01-07 06:05] LABS: ALBUMIN 2.5 g/dL (3.4-5.0); CALCIUM 7.6 mg/dL (8.5-10.1); CARBON DIOXIDE 26.5 mmol/L (21-32); COR CA(FOR HYPOALB) 8.8 mg/dL (8.5-10.1); CREATININE 1.46 mg/dL (0.55-1.02); POTASSIUM 3.6 mmol/L (3.5-5.1); TOTAL PROTEIN 5.6 g/dL (6.4-8.2)
[2023-01-07] MEDS ORDERED: PHARMACY CONSULT - POTASSIUM & MAGNESIUM XX SCH ×2 (07:00→08:00)
[2023-01-07] MEDS ORDERED: K-DUR TAB 20 MEQ PO SCH (07:00)
[2023-01-07] MEDS: PEPCID TAB 40 MG PO SCH ×2 (08:49→20:35)
[2023-01-07] MEDS: ARICEPT TAB 10 MG PO SCH (08:49)
[2023-01-07] MEDS: PROTONIX TAB 40 MG PO SCH ×2 (08:49→20:35)
[2023-01-07] MEDS: SYNTHROID 25 mcg TAB PO SCH (08:50)
[2023-01-07] MEDS: EFFEXOR TAB 75 MG (BID DOSING) PO SCH (08:50)
[2023-01-07] MEDS: NEURONTIN CAP 100 MG PO SCH ×2 (08:51→20:35)
[2023-01-07] MEDS: LIPITOR TAB 40 MG PO SCH (08:51)
[2023-01-07] MEDS: ROCEPHIN VIAL 1 GRAM 1 G in NS 100 ML IV 100 ML IV SCH (08:51)
[2023-01-07] MEDS: SINGULAIR TAB 10 MG PO SCH (08:51)
[2023-01-07] MEDS: PROVENTIL NEB TX 0.083% 2.5MG/ 3ML NEB PRN ×2 (08:59→20:55)
[2023-01-07] MEDS: PULMICORT NEB TX 0.5 MG NEB SCH ×2 (08:59→20:55)
[2023-01-07] MEDS: CORDARONE TAB 200 MG PO SCH (09:02)
--- NOTE | 2023-01-07 10:48 | DR.H&P ---
H&P - History & Physical for Day of: H&P Date: 01/06/23 - Chief Complaint Chief Complaint: WEAKNESS - History of Present Illness History of Present Illness: IS A 87 YEAR OLD WHITE FEMALE. SHE IS A PATIENT OF . SHE HAS A PMH OF ANEMIA, ARTHRITIS, ASTHMA, CHF, COPD, CAD, DYSLIPIDEMIA, GERD, HTN, [place], CORONARY STENTS, CHOLECYSTECTOMY, HYSTERECTOMY, AND TONSILLECTOMY. SHE PRESENTED TO THE ER WITH COMPLAINTS OF WEAKNESS AND LOW BLOOD PRESSURE FOR THE PAST 2-3 DAYS. SHE REPORTS THAT HER OXYGEN SATURATIONS HAVE BEEN RUNNING IN THE LOW 90s. SHE USES OXYGEN AT HOME, BUT ONLY AT NIGHT. SHE ALSO COMPLAINS OF LEFT ELBOW PAIN. EXAMINATION REVEALED A SKIN TEAR AND REDNESS TO THE AREA SURROUNDING THE SKIN TEAR. SHE DENIES CHEST PAIN, FEVER, CHILLS, SHORTNESS OF BREATH, OR DYSURIA. ON ARRIVAL, HER VITALS WERE: 99.2-24-20-93%-106/63. LABS WERE OBTAINED. WBC 6.9, RBC 2.95, HGB 8.5, HCT 25.4, PLT COUNT 257, D-DIMER 0.73, SODIUM 142, POTASSIUM 4.7, CHLORIDE 104, CARBON DIOXIDE 31.9, BUN 20, CREATININE 1.71, GLUCOSE 93, LACTIC ACID 0.4, CALCIUM 8.0, TOTAL BILI 0.20, AST 21, ALT 17, ALK PHOS 52, CREATINE KINASE 61, TROPONIN 22.7, TOTAL PROTEIN 6.1, ALBUMIN 2.9. URINALYSIS WAS OBTAINED AND REVEALED: WBC 5-10, RBC NONE SEEN, LEUKOCYTES 2+, BACTERIA 2+. A URINE CULTURE AND BLOOD CULTURES WERE SET UP. A CHEST XRAY WAS OBTAINED AND REVEALED: Chronic interstitial lung changes. Mild infiltrate right middle lobe may represent sc arring, atelectasis or developing infectious process. EKG WAS OBTAINED AND REVEALED: NORMAL SINUS RHYTHM WITH HR 66 BPM. WHILE IN THE ER, HER BLOOD PRESSURE DROPPED TO 80s/40s. SHE WAS GIVEN A NORMAL SALINE BOLUS X 2 LITERS AND ROCEPHIN 1G IV X 1. HER BLOOD PRESSURE EVENTUALLY INCREASED TO 104/51. HE WAS ADMITTED TO THE HOSPITAL OBSERVATION STATUS FOR FURTHER EVALUATION AND TREATMENT OF DEHYDRATION, UTI, CHRONIC RENAL INSUFFICIENCY, LEFT ELBOW CELLULITIS, ANEMIA, HYPOTENSION. SHE WAS STARTED ON NORMAL SALINE AT 80 ML/HR, ROCEPHIN 1G IV DAILY, MUPIROCIN OINTMENT DAILY, ALBUTEROL NEBS QID PRN, PULMICORT NEBS BID. HER HOME MEDICATIONS OF AMIODARONE, ATORVASTATIN, CLOPIDOGREL, DONEPEZIL, FAMOTIDINE, GABAPENTIN, VISTARIL, SYNTHROID, SINGULAIR, PANTOPRAZOLE, REQUIP, AND VENLAFAXINE WERE RESUMED. OTHERWISE, WE PLAN TO FOLLOW UP WITH AM LABS AND CHEST XRAY AND 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. TIME SPENT ON CLINICAL ASSESSMENT, REVIEWING LABS AND IMAGING, DECISION MAKING, AND DOCUMENTATION GREATER THAN 75 MINUTES. - Past Medical History Past Medical History: AZ, Coronary Artery Disease, Hypertension, Dyslipidemia, Anemia, COPD, Asthma, GERD, Arthritis, CHF Additional Medical History: Breast and uterine cancer - Past Surgical History Surgical History: Angioplasty/Stents, Cholecystectomy, Hysterectomy, Other, Tonsillectomy - Family History Family Medical History: Diabetes Mellitus, Cancer, [place], Coronary Artery Disease, Sudden Cardiac , Hypertension - Social History Does patient currently use any type of tobacco product: Yes Have you used tobacco products in the last 12 months: Yes Type of Tobacco Use: Cigarettes Does any household member use tobacco: No Alcohol Use: None Drug Use: None - Review of Systems Constitutional: Weakness. denies: Fever, Chills Eyes: No Symptoms Reported ENT: No Symptoms Reported Respiratory: denies: Shortness of Breath Cardiovascular: No Symptoms Reported Gastrointestinal: No Symptoms Reported Genitourinary: No Symptoms Reported Musculoskeletal: See HPI, Other (LEFT ELBOW PAIN) Skin: Wound (SKIN TEAR TO LEFT ELBOW ) Neurological: Weakness - Physical Exam Vital Signs: Vital Signs Temperature 99.2 F Pulse Rate [Left] 73 Pulse Rate 74 Respiratory Rate 20 Blood Pressure [Left Arm] 141/63 O2 Sat by Pulse Oximetry 98 O2 Sat by Pulse Oximetry 99 Oriented: Normal Eyes: Normal Ear: Normal Nose: Normal Throat: Normal Respiratory: Diminished Throughout Cardiovascular: Normal : Normal Auscultation: Bowel Sounds: Normal Palpation: Normal Tenderness: Normal Skin: Red (LEFT ELBOW ), Tender Musculoskeletal: Left, Arm, Tender Psychiatric: Normal Mood Description: Calm Affect: Normal Speech Pattern: Clear - Assessment/Plan (1) Pneumonia Qualifiers: Pneumonia type: due to unspecified organism Laterality: right Lung location: middle lobe of lung Qualified Code(s): J18.9 - Pneumonia, unspecified organism Status: Acute Plan: ADMIT, SUPPLEMENTAL OXYGEN, NORMAL SALINE AT 80 ML/HR, ROCEPHIN 1G IV DAILY, MUPIROCIN OINTMENT DAILY, ALBUTEROL NEBS QID PRN, PULMICORT NEBS BID. HER HOME MEDICATIONS OF AMIODARONE, ATORVASTATIN, CLOPIDOGREL, DONEPEZIL, FAMO TIDINE, GABAPENTIN, VISTARIL, SYNTHROID, SINGULAIR, PANTOPRAZOLE, REQUIP, AND VENLAFAXINE WERE RESUMED. (2) Cellulitis of left elbow Status: Acute (3) Hypotension Qualifiers: Hypotension type: unspecified hypotension type Qualified Code(s): I95.9 - Hypotension, unspecified Status: Acute (4) UTI (urinary tract infection) Qualifiers: Urinary tract infection type: acute cystitis Hematuria presence: without hematuria Qualified Code(s): N30.00 - Acute cystitis without hematuria Status: Acute (5) Chronic renal insufficiency Qualifiers: Chronic kidney disease stage: stage 2 (mild) Qualified Code(s): N18.2 - Chronic kidney disease, stage 2 (mild) Status: Acute (6) Dehydration Status: Acute (7) Anemia Qualifiers: Anemia type: iron deficiency Iron deficiency anemia type: unspecified iron deficiency Qualified Code(s): D50.9 - Iron deficiency anemia, unspecified Status: Suspected - Allergies Allergies/Adverse Reactions: Allergies Allergy/AdvReac Type Severity Reaction Status Date / Time levofloxacin [From Levaquin] Allergy Unknown Verified 01/06/23 19:38 - Medications Home Medications: Home Medications Medication Instructions Recorded Confirmed clopidogrel 75 mg tablet 75 mg PO HS 07/30/19 01/06/23 pantoprazole 40 mg tablet,delayed 40 mg PO BID 01/06/23 01/06/23 release Previous Rx's Medication Instructions Recorded furosemide 20 mg tablet 20 mg PO BID 30 days #60 tabs 10/10/22 montelukast 10 mg tablet 10 mg PO QDAY #30 EACH 11/24/22 nystatin 100,000 unit/gram topical 1 applic topical BID 30 days #15 12/07/22 powder grams amiodarone 100 mg tablet 100 mg PO QDAY 30 days #30 tabs 01/06/23 atorvastatin 40 mg tablet 40 mg PO QDAY #30 tabs 01/06/23 carvedilol 3.125 mg tablet 6.25 mg PO BID 30 days #120 tabs 01/06/23 donepezil 10 mg tablet 10 mg PO QDAY 90 days #90 tabs 01/06/23 famotidine 40 mg tablet 40 mg PO BID 30 days #60 tabs 01/06/23 gabapentin 100 mg capsule 200 mg PO BID 30 days #120 caps 01/06/23 levothyroxine 25 mcg tablet 25 mcg PO QDAY 30 days #30 tabs 01/06/23 (Synthroid) ropinirole 0.5 mg tablet 0.5 mg PO TID 30 days #90 tabs 01/06/23 venlafaxine 75 mg tablet 75 mg PO DAILY #30 tabs 01/06/23
[2023-01-07] MEDS ORDERED: NS 1/2 1,000 ML IV 1,000 ML IV ONE (13:41)
[2023-01-07] MEDS: BACTROBAN TOPICAL OINT TOP SCH (13:44)
[2023-01-07] MEDS: NS 1/2 1,000 ML IV 1,000 ML IV SCH (13:44)
--- NOTE | 2023-01-07 15:20 | RAD ---
HISTORYRecent injurySTUDYLeft elbow four viewsCOMPARISONMarch 2021FINDINGSThere is no evidence for elbow fracture, dislocation, joint deformity or synovial distension.IMPRESSIONNo acute findings left elbow.Electronically signed by: DEVANG BERNAL (Jan 07, 2023 15:18:25)
[2023-01-07] MEDS: VISTARIL PO PRN (20:35)
[2023-01-07] MEDS: PLAVIX PO SCH (20:35)
[2023-01-08] MEDS: NS 1/2 1,000 ML IV 1,000 ML IV SCH (00:53)
[2023-01-08 05:15] LABS: BASOPHILS # (AUTO) 0.1 X10^3/uL (0.0-0.1); BASOPHILS % (AUTO) 0.8 % (0.2-1.0); EOSINOPHILS # (AUTO) 0.1 x10^3/uL (0.0-0.2); EOSINOPHILS % (AUTO) 1.8 % (0.9-2.9); HEMATOCRIT 23.8 % (36.0-47.0); HEMOGLOBIN 8.1 g/dL (12.0-16.0); LYMPHOCYTES # (AUTO) 1.3 X10^3/uL (1.3-2.9); LYMPHOCYTES % (AUTO) 16.4 % (21.0-51.0); MEAN CORPUSCULAR HEMOGLOBIN 29.3 pg (27.0-34.0); MEAN CORPUSCULAR HGB CONC 34.1 g/dL (33.0-35.0); MEAN CORPUSCULAR VOLUME 85.9 fL (80.0-100.0); MEAN PLATELET VOLUME 8.4 fL (7.4-11.0); MONOCYTES % (AUTO) 12.7 % (0.0-13.0); NEUTROPHILS # (AUTO) 5.3 x10^3/uL (2.2-4.8); NEUTROPHILS % (AUTO) 68.3 % (42.0-75.0); PLATELET COUNT 238 X10^3/uL (150.0-450.0); RED BLOOD COUNT 2.77 X10^6/uL (3.5-5.4); RED CELL DISTRIBUTION WIDTH 15.6 % (11.6-16.5); WHITE BLOOD COUNT 7.8 X10^3/uL (3.6-10.0)
[2023-01-08 05:22] LABS: ALBUMIN 2.4 g/dL (3.4-5.0); CALCIUM 7.8 mg/dL (8.5-10.1); CARBON DIOXIDE 29.4 mmol/L (21-32); COR CA(FOR HYPOALB) 9.1 mg/dL (8.5-10.1); CREATININE 1.17 mg/dL (0.55-1.02); POTASSIUM 3.5 mmol/L (3.5-5.1); TOTAL PROTEIN 5.8 g/dL (6.4-8.2)
[2023-01-08] MEDS: REQUIP PO SCH ×3 (05:57→21:00)
[2023-01-08] MEDS ORDERED: NS 1/2 1,000 ML IV 1,000 ML IV ONE (07:55)
[2023-01-08] MEDS ORDERED: PHARMACY CONSULT - POTASSIUM & MAGNESIUM XX SCH (08:00)
[2023-01-08] MEDS: PROVENTIL NEB TX 0.083% 2.5MG/ 3ML NEB PRN ×2 (08:52→20:21)
[2023-01-08] MEDS: PULMICORT NEB TX 0.5 MG NEB SCH ×2 (08:52→20:21)
[2023-01-08] MEDS: PEPCID TAB 40 MG PO SCH ×2 (08:53→20:23)
[2023-01-08] MEDS: NEURONTIN CAP 100 MG PO SCH ×2 (08:53→20:22)
[2023-01-08] MEDS: PROTONIX TAB 40 MG PO SCH ×2 (08:53→20:23)
[2023-01-08] MEDS: CORDARONE TAB 200 MG PO SCH (08:53)
[2023-01-08] MEDS: EFFEXOR TAB 75 MG (BID DOSING) PO SCH (08:54)
[2023-01-08] MEDS: LIPITOR TAB 40 MG PO SCH (08:54)
[2023-01-08] MEDS: SINGULAIR TAB 10 MG PO SCH (08:54)
[2023-01-08] MEDS: SYNTHROID 25 mcg TAB PO SCH (08:54)
[2023-01-08] MEDS: ARICEPT TAB 10 MG PO SCH (08:54)
[2023-01-08] MEDS: ROCEPHIN VIAL 1 GRAM 1 G in NS 100 ML IV 100 ML IV SCH (08:58)
[2023-01-08] MEDS: BACTROBAN TOPICAL OINT TOP SCH (08:58)
[2023-01-08] MEDS ORDERED: K-DUR TAB 20 MEQ PO SCH (09:00)
--- NOTE | 2023-01-08 09:51 | RAD ---
HISTORYShortness of breathSTUDYCHEST, 1 [id number]/30/2023FINDINGSThe trachea is midline. The cardiac silhouette is unremarkable . The lungs are clear without focal infiltrate or effusion. The bony thorax is unremarkable.IMPRESSIONNo acute cardiopulmonary disease.Electronically signed by: GENEVIEVE LEE (Jan 08, 2023 09:50:28)
[2023-01-08] MEDS: COREG TAB 3.125 MG PO SCH ×2 (10:08→20:22)
[2023-01-08] MEDS: HEMOCYTE-PLUS PO SCH (10:08)
[2023-01-08] MEDS: D5W 1,000 ML IV 1,000 ML IV SCH ×2 (10:09→23:05)
--- NOTE | 2023-01-08 11:15 | PCM.PROG ---
Progress Note - Progress Note for Day of Date of Exam: 01/08/23 - Subjective Subjective: IS CURRENTLY OBSERVATION STATUS FOR TREATMENT OF BRONCHOPNEUMONIA, CELLULITIS OF LEFT ELBOW, UTI, ANEMIA, DEHYDRATION, AND ACUTE ON CHRONIC RENAL INSUFFICIENCY. SHE HAS A PMH OF IRON DEFICIENCY ANEMIA, GASTRIC ANTRAL VASCULAR ECTASIA SYNDROME, ARTHRITIS, ASTHMA, CHF, COPD, CAD, DYSL IPIDEMIA, GERD, HTN, NM, CORONARY STENTS, CHOLECYSTECTOMY, HYSTERECTOMY, AND TONSILLECTOMY. TODAY, SHE IS ALERT AND ORIENTED, LYING IN BED ON MORNING ROUNDS. SHE CONTINUES TO COMPLAIN OF GENERALIZED WEAKNESS, SHORTNESS OF BREATH AT TIMES, AND PAIN TO THE LEFT ELBOW. SHE DENIES SIGNIFICANT IMPROVEMENT IN SYMPTOMS SINCE ADMISSION. ON EXAMINATION, HEART IS REGULAR IN RATE AND RHYTHM. BILATERAL LUNGS ARE NOTED WITH DIMINISHED LUNG SOUNDS THROUGHOUT. ABDOMEN IS ROUND, SOFT, AND NON-TENDER WITH NORMAL BOWEL SOUNDS NOTED IN ALL QUADRANTS. ERYTHEMA AND SKIN TEAR NOTED TO THE LEFT ELBOW. GOOD RANGE OF MOTION NOTED TO THE UPPER AND LOWER EXTREMITIES WITH NO EDEMA NOTED. SHE IS CURRENTLY UTILIZING OXYGEN VIA NASAL CANNULA AT 2 LPM. HER SATURATIONS HAVE BEEN IN THE 90s THROUGHOUT THE NIGHT. HER VITALS THIS MORNING ARE: 98.4-77-22-92%-185/72. LABS WERE OBTAINED. WBC 7.8, RBC 2.77, HGB 8.1, HCT 23.8, PLT COUNT 238, SODIUM 146, POTASSIUM 3.5, CHLORIDE 109, BUN 9, CREATININE 1.17, GLUCOSE 122, CALCIUM 7.8, AST 16, ALT 14, ALK PHOS 51, TOTAL PROTEIN 5.8, ALBUMIN 2.4. STOOL WAS POSITIVE FOR OCCULT BLOOD. URINE CULTURE WAS POSITIVE FOR GROWTH OF E.COLI. BLOOD CULTURES ARE PENDING. CHEST XRAY WAS OBTAINED THIS MORNING AND REVEALED: NO ACUTE CARDIOPULMONARY DISEASE. SHE IS CURRENTLY RECEIVING NORMAL SALINE AT 80 ML/HR, ROCEPHIN 1G IV DAILY, MUPIROCIN OINTMENT DAILY, ALBUTEROL NEBS QID PRN, PULMICORT NEBS BID. HER HOME MEDICATIONS OF AMIODARONE, ATORVASTATIN, CLOPIDOGREL, DONEPEZIL, FAMOTIDINE, GABAPENTIN, VISTARIL, SYNTHROID, SINGULAIR, PANTOPRAZOLE, REQUIP, AND VENLAFAXINE WERE RESUMED. WE WILL CHANGE HER IV FLUIDS TO D5W AT 50 ML/HR TODAY. WE WILL CONSULT DUE TO STEADY DECLINE IN HEMOGLOBIN. OTHERWISE, WE WILL FOLLOW UP WITH AM LABS AND 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. TIME SPENT ON CLINICAL ASSESSMENT, REVIEWING LABS AND IMAGING, DECISION MAKING, AND DOCUMENTATION GREATER THAN 45 MINUTES. - Past Medical Family Social History Past Med/Fam/Surg Hx: No changes since H&P Allergies: Allergies levofloxacin [From Levaquin] Allergy (Unknown, Verified 01/06/23 19:38) Onset Date: 05/04/2018 - Review of Systems ROS: No change since H&P - Vital Signs and I&O's Vital Signs: Vital Signs Temperature 98.4 F Temperature 98.5 F Pulse Rate [Left] 77 Pulse Rate [Left] 76 Pulse Rate 73 Respiratory Rate 22 Respiratory Rate 18 Blood Pressure [Left Arm] 185/72 Blood Pressure [Left Arm] 151/67 O2 Sat by Pulse Oximetry 98 O2 Sat by Pulse Oximetry 92 O2 Sat by Pulse Oximetry 99 Intake and Output: Intake & Output 01/05/23 01/06/23 01/07/23 01/08/23 11:59 11:59 11:59 11:59 Intake Total 1776 2534 / 2534 Balance 1776 2534 / 2534 - Physical Exam Oriented: Normal Eyes: Normal Ear: Normal Nose: Normal Throat: Normal Respiratory: Generalized, Diminished Cardiovascular: Normal : Normal Auscultation: Bowel Sounds: Normal Palpation: Normal Tenderness: Normal Skin: Red (LEFT ELBOW ), Tender Musculoskeletal: Left, Arm, Tender Psychiatric: Normal Mood Description: Calm Affect: Normal Speech Pattern: Clear, Appropriate - Laboratory and Diagnostics Result Diagrams: 01/08/23 04:43 01/08/23 04:43 Labs: 01/06/23 14:35 Blood Blood Culture - Preliminary 01/06/23 14:20 Blood Blood Culture - Preliminary 01/06/23 14:44 Urine,Catheterized Urine Culture - Final Escherichia Coli Laboratory WBC 7.8 X10^3/uL (3.6-10.0) 01/08/23 04:43 RBC 2.77 X10^6/uL (3.5-5.4) L 01/08/23 04:43 Hgb 8.1 g/dL (12.0-16.0) L 01/08/23 04:43 Hct 23.8 % (36.0-47.0) L 01/08/23 04:43 MCV 85.9 fL (80.0-100.0) 01/08/23 04:43 MCH 29.3 pg (27.0-34.0) 01/08/23 04:43 MCHC 34.1 g/dL (33.0-35.0) 01/08/23 04:43 RDW 15.6 % (11.6-16.5) 01/08/23 04:43 Plt Count 238 X10^3/uL (150.0-450.0) 01/08/23 04:43 MPV 8.4 fL (7.4-11.0) 01/08/23 04:43 Neut % (Auto) 68.3 % (42.0-75.0) 01/08/23 04:43 Lymph % (Auto) 16.4 % (21.0-51.0) L 01/08/23 04:43 [place] % (Auto) 12.7 % (0.0-13.0) 01/08/23 04:43 Eos % (Auto) 1.8 % (0.9-2.9) 01/08/23 04:43 Baso % (Auto) 0.8 % (0.2-1.0) 01/08/23 04:43 Neut # (Auto) 5.3 x10^3/uL (2.2-4.8) H 01/08/23 04:43 Lymph # (Auto) 1.3 X10^3/uL (1.3-2.9) 01/08/23 04:43 [place] # (Auto) 1.0 x10^3/uL (0.3-0.8) H 01/08/23 04:43 Eos # (Auto) 0.1 x10^3/uL (0.0-0.2) 01/08/23 04:43 Baso # (Auto) 0.1 X10^3/uL (0.0-0.1) 01/08/23 04:43 Absolute Nucleated RBC 0.0 /100WBC 01/08/23 04:43 D-Dimer 0.73 ug/ml (0.0-0.57) H 01/06/23 14:35 Sodium 146 mmol/L (136-145) H 01/08/23 04:43 Corrected Sodium 147 mmol/L (136-145) H 01/08/23 04:43 Potassium 3.5 mmol/L (3.5-5.1) 01/08/23 04:43 Chloride 109 mmol/L (98-107) H 01/08/23 04:43 Carbon Dioxide 29.4 mmol/L (21-32) 01/08/23 04:43 BUN 9 mg/dL (7-18) 01/08/23 04:43 Creatinine 1.17 mg/dL (0.55-1.02) H 01/08/23 04:43 Est GFR (MDRD) Af Amer 57 (>60) L 01/08/23 04:43 Est GFR (MDRD) Non-Af 47 (>60) L 01/08/23 04:43 Glucose 122 mg/dL (65-99) H 01/08/23 04:43 Lactic Acid 0.4 mmol/L (0.4-2.0) 01/06/23 14:20 Calcium 7.8 mg/dL (8.5-10.1) L 01/08/23 04:43 Corrected Calcium 9.1 mg/dL (8.5-10.1) 01/08/23 04:43 Total Bilirubin 0.20 mg/dL (0.2-1.0) 01/08/23 04:43 AST 16 Units/L (15-37) 01/08/23 04:43 ALT 14 Units/L (12-78) 01/08/23 04:43 Alkaline Phosphatase 51 Units/L (46-116) 01/08/23 04:43 Creatine Kinase 61 Units/L (26-192) 01/06/23 14:20 Troponin I High Sens 22.7 ng/L (4.0-60.0) 01/06/23 14:20 Total Protein 5.8 g/dL (6.4-8.2) L 01/08/23 04:43 Albumin 2.4 g/dL (3.4-5.0) L 01/08/23 04:43 Globulin 3.4 g/dL (2.5-4.5) 01/08/23 04:43 Albumin/Globulin Ratio 0.7 Ratio (1.1-2.1) L 01/08/23 04:43 Specimen Type Catherized urine 01/06/23 14:44 Urine Color Pale yellow (YELLOW) 01/06/23 14:44 Urine Appearance Hazy (CLEAR) 01/06/23 14:44 Urine pH 6.0 (5.0 - 8.0) 01/06/23 14:44 Ur Specific [place] 1.015 (1.000-1.030) 01/06/23 14:44 Urine Protein 2+ (NEGATIVE) 01/06/23 14:44 Urine Glucose (UA) Negative (NEGATIVE) 01/06/23 14:44 Urine Ketones Negative (NEGATIVE) 01/06/23 14:44 Urine Blood 1+ (NEGATIVE) 01/06/23 14:44 Urine Nitrite Negative (NEGATIVE) 01/06/23 14:44 Urine Bilirubin Negative (NEGATIVE) 01/06/23 14:44 Urine Urobilinogen Normal (NORMAL) 01/06/23 14:44 Ur Leukocyte Esterase 2+ (NEGATIVE) 01/06/23 14:44 Urine RBC None seen /HPF (0-3) 01/06/23 14:44 Urine WBC 5-10 /HPF (0-5) A 01/06/23 14:44 Ur Squamous Epith Cells Negative /HPF (NEGATIVE) 01/06/23 14:44 Urine Bacteria 2+ /HPF (NEGATIVE) 01/06/23 14:44 Ur Culture Indicated? Yes/culture set up 01/06/23 14:44 Stl Occult Blood (IFOB) Positive (NEGATIVE) A 01/08/23 03:18 SARS-CoV-2 (PCR) Negative (NEGATIVE) 01/07/23 11:23 Influenza Type A (PCR) Negative (NEGATIVE) 01/07/23 11:23 Influenza Type B (PCR) Negative (NEGATIVE) 01/07/23 11:23 RSV (PCR) Negative (NEGATIVE) 01/07/23 11:23 - Plan (1) Pneumonia Status: Acute Qualifiers: Pneumonia type: due to unspecified organism Laterality: right Lung loc ation: middle lobe of lung Qualified Code(s): J18.9 - Pneumonia, unspecified organism Plan: SUPPLEMENTAL OXYGEN, D5W AT 75 ML/HR, ROCEPHIN 1G IV DAILY, MUPIROCIN OINTMENT DAILY, ALBUTEROL NEBS QID PRN, PULMICORT NEBS BID. HER HOME MEDICATIONS OF AMIODARONE, ATORVASTATIN, CLOPIDOGREL, DONEPEZIL, FAMOTIDINE, GABAPENTIN, VISTARIL, SYNTHROID, SINGULAIR, PANTOPRAZOLE, REQUIP, AND VENLAFAXINE WERE RESUMED. (2) Cellulitis of left elbow Status: Acute (3) Hypotension Status: Acute Qualifiers: Hypotension type: unspecified hypotension type Qualified Code(s): I95.9 - Hypotension, unspecified (4) UTI (urinary tract infection) Status: Acute Qualifiers: Urinary tract infection type: acute cystitis Hematuria presence: without hematuria Qualified Code(s): N30.00 - Acute cystitis without hematuria (5) Chronic renal insufficiency Status: Acute Qualifiers: Chronic kidney disease stage: stage 2 (mild) Qualified Code(s): N18.2 - Chronic kidney disease, stage 2 (mild) (6) Dehydration Status: Acute (7) Anemia Status: Suspected Qualifiers: Anemia type: iron deficiency Iron deficiency anemia type: unspecified iron deficiency Qualified Code(s): D50.9 - Iron deficiency anemia, unspecified Plan: GI CONSULT, RESUME HEMOCYTE PLUS
[2023-01-08] MEDS: PLAVIX PO SCH (20:20)
[2023-01-08] MEDS: VISTARIL PO PRN (20:22)
[2023-01-09] MEDS: D5W 1,000 ML IV 1,000 ML IV SCH ×2 (04:42→15:36)
[2023-01-09] MEDS: REQUIP PO SCH ×3 (05:18→21:07)
[2023-01-09 05:22] LABS: BASOPHILS # (AUTO) 0.1 X10^3/uL (0.0-0.1); BASOPHILS % (AUTO) 0.8 % (0.2-1.0); EOSINOPHILS # (AUTO) 0.2 x10^3/uL (0.0-0.2); EOSINOPHILS % (AUTO) 2.4 % (0.9-2.9); HEMATOCRIT 22.6 % (36.0-47.0); HEMOGLOBIN 7.6 g/dL (12.0-16.0); LYMPHOCYTES # (AUTO) 1.4 X10^3/uL (1.3-2.9); LYMPHOCYTES % (AUTO) 17.3 % (21.0-51.0); MEAN CORPUSCULAR HEMOGLOBIN 28.7 pg (27.0-34.0); MEAN CORPUSCULAR HGB CONC 33.7 g/dL (33.0-35.0); MEAN PLATELET VOLUME 8.4 fL (7.4-11.0); MONOCYTES % (AUTO) 12.7 % (0.0-13.0); NEUTROPHILS # (AUTO) 5.3 x10^3/uL (2.2-4.8); NEUTROPHILS % (AUTO) 66.8 % (42.0-75.0); PLATELET COUNT 229 X10^3/uL (150.0-450.0); RED BLOOD COUNT 2.66 X10^6/uL (3.5-5.4); RED CELL DISTRIBUTION WIDTH 15.6 % (11.6-16.5); WHITE BLOOD COUNT 7.9 X10^3/uL (3.6-10.0)
[2023-01-09 05:34] LABS: ALANINE AMINOTRANSFERASE 13 Units/L (12-78); ALBUMIN 2.3 g/dL (3.4-5.0); ALKALINE PHOSPHATASE 49 Units/L (46-116); ASPARTATE AMINO TRANSFERASE 12 Units/L (15-37); BLOOD UREA NITROGEN 11 mg/dL (7-18); CALCIUM 7.8 mg/dL (8.5-10.1); CARBON DIOXIDE 29.1 mmol/L (21-32); CHLORIDE 109 mmol/L (98-107); COR CA(FOR HYPOALB) 9.2 mg/dL (8.5-10.1); GLUCOSE 102 mg/dL (65-99); SODIUM 143 mmol/L (136-145); TOTAL PROTEIN 5.4 g/dL (6.4-8.2); eGFR NON BLACK RACES 50 (>60)
[2023-01-09] MEDS ORDERED: PEPCID TAB 20 MG ONE (07:30)
[2023-01-09] MEDS: PULMICORT NEB TX 0.5 MG NEB SCH (09:17)
[2023-01-09] MEDS: PROVENTIL NEB TX 0.083% 2.5MG/ 3ML NEB PRN (09:17)
[2023-01-09] MEDS: LIPITOR TAB 40 MG PO SCH (09:30)
[2023-01-09] MEDS: PROTONIX TAB 40 MG PO SCH ×2 (09:31→21:00)
[2023-01-09] MEDS: SINGULAIR TAB 10 MG PO SCH (09:31)
[2023-01-09] MEDS: COREG TAB 3.125 MG PO SCH ×2 (09:32→21:00)
[2023-01-09] MEDS: HEMOCYTE-PLUS PO SCH (09:32)
[2023-01-09] MEDS: ARICEPT TAB 10 MG PO SCH (09:33)
[2023-01-09] MEDS: PEPCID TAB 20 MG PO SCH ×2 (09:34→20:59)
[2023-01-09] MEDS: NEURONTIN CAP 100 MG PO SCH ×2 (09:34→21:00)
[2023-01-09] MEDS: CORDARONE TAB 200 MG PO SCH (09:35)
[2023-01-09] MEDS: EFFEXOR TAB 75 MG (BID DOSING) PO SCH (09:35)
[2023-01-09] MEDS: SYNTHROID 25 mcg TAB PO SCH (09:35)
[2023-01-09] MEDS: BACTROBAN TOPICAL OINT TOP SCH (09:37)
[2023-01-09] MEDS: ROCEPHIN VIAL 1 GRAM 1 G in NS 100 ML IV 100 ML IV SCH (09:37)
[2023-01-09] MEDS ORDERED: LASIX IVP ONE (10:27)
[2023-01-09] MEDS: PROVENTIL NEB TX 0.083% 2.5MG/ 3ML NEB SCH ×3 (13:25→16:30)
[2023-01-09] MEDS ORDERED: LASIX ONE (15:38)
[2023-01-09 16:16] LABS: HEMATOCRIT 24.6 % (36.0-47.0); HEMOGLOBIN 8.3 g/dL (12.0-16.0)
--- NOTE | 2023-01-09 16:27 | RAD ---
HISTORYSOB Relevant Clinical InformationSTUDYCHEST, 1 [id number]/02/2023 and 08/18/2021FINDINGS:The trachea is midline. There is borderline heart size with mild uncoiling of the aortic arch.There are surgical clips in the left axillary region.There is a calcified plaque in left apex, there is mild fibrosis in the upper lobes slightly increase in the right upper lobe. No evidence of pneumothorax or alveolar radiopacity. There is mild increase of the perihilar interstitial changes.IMPRESSIONMild increase of the interstitial markings along the perihilar regions suspicious for worsening interstitial disease. Follow with fluid in the chest recommendedExposure to asbestos is suspectedElectronically signed by: Ban Correa (Jan 09, 2023 16:26:13)
[2023-01-09] MEDS: VISTARIL PO PRN (20:59)
[2023-01-09] MEDS: PLAVIX PO SCH (21:00)
--- NOTE | 2023-01-09 22:32 | PCM.PROG ---
Progress Note - Progress Note for Day of Date of Exam: 01/09/23 - Subjective Subjective: IS CURRENTLY OBSERVATION STATUS FOR TREATMENT OF BRONCHOPNEUMONIA, CELLULITIS OF LEFT ELBOW, UTI, ANEMIA, DEHYDRATION, AND ACUTE ON CHRONIC RENAL INSUFFICIENCY. SHE HAS A PMH OF IRON DEFICIENCY ANEMIA, GASTRIC ANTRAL VASCULAR ECTASIA SYNDROME, ARTHRITIS, ASTHMA, CHF, COPD, CAD, DYSL IPIDEMIA, GERD, HTN, NE, CORONARY STENTS, CHOLECYSTECTOMY, HYSTERECTOMY, AND TONSILLECTOMY. TODAY, SHE IS ALERT AND ORIENTED, LYING IN BED ON MORNING ROUNDS. SHE CONTINUES TO COMPLAIN OF GENERALIZED WEAKNESS, SHORTNESS OF BREATH AT TIMES, AND PAIN TO THE LEFT ELBOW. SHE DENIES SIGNIFICANT IMPROVEMENT IN SYMPTOMS SINCE ADMISSION. ON EXAMINATION, HEART IS REGULAR IN RATE AND RHYTHM. BILATERAL LUNGS ARE NOTED WITH SCATTERED WHEEZING. ABDOMEN IS ROUND, SOFT, AND NON-TENDER WITH NORMAL BOWEL SOUNDS NOTED IN ALL QUADRANTS. ERYTHEMA AND SKIN TEAR NOTED TO THE LEFT ELBOW. GOOD RANGE OF MOTION NOTED TO THE UPPER AND LOWER EXTREMITIES WITH NO EDEMA NOTED. SHE IS CURRENTLY UTILIZING OXYGEN VIA NASAL CANNULA AT 2 LPM. HER SATURATIONS HAVE BEEN IN THE 90s THROUGHOUT THE NIGHT. HER VITALS THIS MORNING ARE: 98.3-71-16-98%-100/54. LABS WERE OBTAINED. WBC 7.9, RBC 2.66, HBG 7.6, HCT 22.6, PLT COUNT 229, SODIUM 143, POTASSIUM 4.0, CHLORIDE 109, BUN 11, CREATININE 1.10, GLUCOSE 102, CALCIUM 7.8, AST 12, ALT 13, ALK PHOS 49, TOTAL PROTEIN 5.4, ALBUMIN 2.3. STOOL WAS POSITIVE FOR OCCULT BLOOD. URINE CULTURE WAS POSITIVE FOR GROWTH OF E.COLI. BLOOD CULTURES ARE PENDING. CHEST XRAY WAS OBTAINED THIS MORNING AND REVEALED: Mild increase of the interstitial markings along the perihilar regions suspicious for worsening interstitial disease. Follow with fluid in the chest recommended. Exposure to asbestos is suspected. SHE IS CURRENTLY RECEIVING D5W AT 50 ML/HR, ROCEPHIN 1G IV DAILY, MUPIROCIN OINTMENT DAILY, ALBUTEROL NEBS QID PRN, PULMICORT NEBS BID. HER HOME MEDICATIONS OF AMIODARONE, ATORVASTATIN, CLOPIDOGREL, DONEPEZIL, FAMOTIDINE, GABAPENTIN, VISTARIL, SYNTHROID, SINGULAIR, PANTOPRAZOLE, REQUIP, AND VENLAFAXINE WERE RESUMED. WE WILL ADMINISTER LASIX 20MG IV X 1 DOSE AND DECREASE HER IV FLUIDS TO KVO. WE WILL CONSULT DUE TO STEADY DECLINE IN HEMOGLOBIN. OTHERWISE, WE WILL FOLLOW UP WITH AM LABS AND 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. TIME SPENT ON CLINICAL ASSESSMENT, REVIEWING LABS AND IMAGING, DECISION MAKING, AND DOCUMENTATION GREATER THAN 45 MINUTES. - Past Medical Family Social History Past Med/Fam/Surg Hx: No changes since H&P Allergies: Allergies levofloxacin [From Levaquin] Allergy (Unknown, Verified 01/06/23 19:38) Onset Date: 05/04/2018 - Review of Systems ROS: No change since H&P - Vital Signs and I&O's Vital Signs: Vital Signs Temperature 98.3 F Temperature 98.3 F Pulse Rate [Left] 68 Pulse Rate [Left] 68 Respiratory Rate 18 Respiratory Rate 18 Blood Pressure [Left Arm] 117/53 Blood Pressure [Left Arm] 117/53 O2 Sat by Pulse Oximetry 97 O2 Sat by Pulse Oximetry 97 Intake and Output: Intake & Output 01/07/23 01/08/23 01/09/23 01/10/23 11:59 11:59 11:59 11:59 Intake Total 1776 / 177 2534 / 2534 2283 / 2283 Balance 1777 / 1777 2534 / 2534 2283 / 2283 - Physical Exam Oriented: Normal Eyes: Normal Ear: Normal Nose: Normal Throat: Normal Respiratory: Generalized, Wheezes Cardiovascular: Normal : Normal Auscultation: Bowel Sounds: Normal Palpation: Normal Tenderness: Normal Skin: Red (LEFT ELBOW ), Tender Musculoskeletal: Left, Arm, Tender Psychiatric: Normal Mood Description: Calm Affect: Normal Speech Pattern: Clear, Appropriate - Laboratory and Diagnostics Result Diagrams: 01/09/23 15:58 01/09/23 04:28 Labs: 01/06/23 14:35 Blood Blood Culture - Preliminary 01/06/23 14:20 Blood Blood Culture - Preliminary 01/06/23 14:44 Urine,Catheterized Urine Culture - Final Escherichia Coli Laboratory WBC 7.9 X10^3/uL (3.6-10.0) 01/09/23 04:28 RBC 2.66 X10^6/uL (3.5-5.4) L 01/09/23 04:28 Hgb 8.3 g/dL (12.0-16.0) L 01/09/23 15:58 Hct 24.6 % (36.0-47.0) L 01/09/23 15:58 MCV 85.0 fL (80.0-100.0) 01/09/23 04:28 MCH 28.7 pg (27.0-34.0) 01/09/23 04:28 MCHC 33.7 g/dL (33.0-35.0) 01/09/23 04:28 RDW 15.6 % (11.6-16.5) 01/09/23 04:28 Plt Count 229 X10^3/uL (150.0-450.0) 01/09/23 04:28 MPV 8.4 fL (7.4-11.0) 01/09/23 04:28 Neut % (Auto) 66.8 % (42.0-75.0) 01/09/23 04:28 Lymph % (Auto) 17.3 % (21.0-51.0) L 01/09/23 04:28 [place] % (Auto) 12.7 % (0.0-13.0) 01/09/23 04:28 Eos % (Auto) 2.4 % (0.9-2.9) 01/09/23 04:28 Baso % (Auto) 0.8 % (0.2-1.0) 01/09/23 04:28 Neut # (Auto) 5.3 x10^3/uL (2.2-4.8) H 01/09/23 04:28 Lymph # (Auto) 1.4 X10^3/uL (1.3-2.9) 01/09/23 04:28 [place] # (Auto) 1.0 x10^3/uL (0.3-0.8) H 01/09/23 04:28 Eos # (Auto) 0.2 x10^3/uL (0.0-0.2) 01/09/23 04:28 Baso # (Auto) 0.1 X10^3/uL (0.0-0.1) 01/09/23 04:28 Absolute Nucleated RBC 0.0 /100WBC 01/09/23 04:28 D-Dimer 0.73 ug/ml (0.0-0.57) H 01/06/23 14:35 Sodium 143 mmol/L (136-145) 01/09/23 04:28 Corrected Sodium TNP 01/09/23 04:28 Potassium 4.0 mmol/L (3.5-5.1) 01/09/23 04:28 Chloride 109 mmol/L (98-107) H 01/09/23 04:28 Carbon Dioxide 29.1 mmol/L (21-32) 01/09/23 04:28 BUN 11 mg/dL (7-18) 01/09/23 04:28 Creatinine 1.10 mg/dL (0.55-1.02) H 01/09/23 04:28 Est GFR (MDRD) Af Amer > 60 (>60) 01/09/23 04:28 Est GFR (MDRD) Non-Af 50 (>60) L 01/09/23 04:28 Glucose 102 mg/dL (65-99) H 01/09/23 04:28 Lactic Acid 0.4 mmol/L (0.4-2.0) 01/06/23 14:20 Calcium 7.8 mg/dL (8.5-10.1) L 01/09/23 04:28 Corrected Calcium 9.2 mg/dL (8.5-10.1) 01/09/23 04:28 Total Bilirubin 0.20 mg/dL (0.2-1.0) 01/09/23 04:28 AST 12 Units/L (15-37) L 01/09/23 04:28 ALT 13 Units/L (12-78) 01/09/23 04:28 Alkaline Phosphatase 49 Units/L (46-116) 01/09/23 04:28 Creatine Kinase 61 Units/L (26-192) 01/06/23 14:20 Troponin I High Sens 22.7 ng/L (4.0-60.0) 01/06/23 14:20 Total Protein 5.4 g/dL (6.4-8.2) L 01/09/23 04:28 Albumin 2.3 g/dL (3.4-5.0) L 01/09/23 04:28 Globulin 3.1 g/dL (2.5-4.5) 01/09/23 04:28 Albumin/Globulin Ratio 0.7 Ratio (1.1-2.1) L 01/09/23 04:28 Specimen Type Catherized urine 01/06/23 14:44 Urine Color Pale yellow (YELLOW) 01/06/23 14:44 Urine Appearance Hazy (CLEAR) 01/06/23 14:44 Urine pH 6.0 (5.0 - 8.0) 01/06/23 14:44 Ur Specific [place] 1.015 (1.000-1.030) 01/06/23 14:44 Urine Protein 2+ (NEGATIVE) 01/06/23 14:44 Urine Glucose (UA) Negative (NEGATIVE) 01/06/23 14:44 Urine Ketones Negative (NEGATIVE) 01/06/23 14:44 Urine Blood 1+ (NEGATIVE) 01/06/23 14:44 Urine Nitrite Negative (NEGATIVE) 01/06/23 14:44 Urine Bilirubin Negative (NEGATIVE) 01/06/23 14:44 Urine Urobilinogen Normal (NORMAL) 01/06/23 14:44 Ur Leukocyte Esterase 2+ (NEGATIVE) 01/06/23 14:44 Urine RBC None seen /HPF (0-3) 01/06/23 14:44 Urine WBC 5-10 /HPF (0-5) A 01/06/23 14:44 Ur Squamous Epith Cells Negative /HPF (NEGATIVE) 01/06/23 14:44 Urine Bacteria 2+ /HPF (NEGATIVE) 01/06/23 14:44 Ur Culture Indicated? Yes/culture set up 01/06/23 14:44 Stl Occult Blood (IFOB) Positive (NEGATIVE) A 01/08/23 03:18 SARS-CoV-2 (PCR) Negative (NEGATIVE) 01/07/23 11:23 Influenza Type A (PCR) Negative (NEGATIVE) 01/07/23 11:23 Influenza Type B (PCR) Negative (NEGATIVE) 01/07/23 11:23 RSV (PCR) Negative (NEGATIVE) 01/07/23 11:23 - Plan (1) Bronchopneumonia Status: Acute Plan: SUPPLEMENTAL OXYGEN, D5W AT 20 ML/HR, ROCEPHIN 1G IV DAILY, MUPIROCIN OINTMENT DAILY, ALBUTEROL NEBS QID PRN, PULMICORT NEBS BID. HER HOME MEDICATIONS OF AMIODARONE, ATORVASTATIN, CLOPIDOGREL, DONEPEZIL, FAMOTIDINE, GABAPENTIN, VISTARIL, SYNTHROID, SINGULAIR, PANTOPRAZOLE, REQUIP, AND VENLAFAXINE WERE RESUMED. (2) Cellulitis of left elbow Status: Acute (3) Hypotension Status: Acute Qualifiers: Hypotension type: unspecified hypotension type Qualified Code(s): I95.9 - Hypotension, unspecified (4) UTI (urinary tract infection) Status: Acute Qualifiers: Urinary tract infection type: acute cystitis Hematuria presence: without hematuria Qualified Code(s): N30.00 - Acute cystitis without hematuria (5) Chronic renal insufficiency Status: Acute Qualifiers: Chronic kidney disease stage: stage 2 (mild) Qualified Code(s): N18.2 - Chronic kidney disease, stage 2 (mild) (6) Dehydration Status: Acute (7) Anemia Status: Suspected Qualifiers: Anemia type: iron deficiency Iron deficiency anemia type: unspecified iron deficiency Qualified Code(s): D50.9 - Iron deficiency anemia, unspecified Plan: GI CONSULT, RESUME HEMOCYTE PLUS
[2023-01-10] MEDS: D5W 1,000 ML IV 1,000 ML IV SCH ×2 (03:30→14:15)
[2023-01-10] MEDS: REQUIP PO SCH ×3 (05:33→21:06)
[2023-01-10 06:24] LABS: BASOPHILS # (AUTO) 0.1 X10^3/uL (0.0-0.1); EOSINOPHILS # (AUTO) 0.2 x10^3/uL (0.0-0.2); EOSINOPHILS % (AUTO) 2.4 % (0.9-2.9); HEMATOCRIT 22.8 % (36.0-47.0); HEMOGLOBIN 7.7 g/dL (12.0-16.0); LYMPHOCYTES # (AUTO) 1.2 X10^3/uL (1.3-2.9); LYMPHOCYTES % (AUTO) 17.9 % (21.0-51.0); MEAN CORPUSCULAR HEMOGLOBIN 28.5 pg (27.0-34.0); MEAN CORPUSCULAR HGB CONC 33.6 g/dL (33.0-35.0); MEAN CORPUSCULAR VOLUME 84.8 fL (80.0-100.0); MEAN PLATELET VOLUME 8.7 fL (7.4-11.0); MONOCYTES % (AUTO) 14.1 % (0.0-13.0); NEUTROPHILS # (AUTO) 4.4 x10^3/uL (2.2-4.8); NEUTROPHILS % (AUTO) 64.6 % (42.0-75.0); PLATELET COUNT 213 X10^3/uL (150.0-450.0); RED BLOOD COUNT 2.69 X10^6/uL (3.5-5.4); RED CELL DISTRIBUTION WIDTH 15.6 % (11.6-16.5); WHITE BLOOD COUNT 6.9 X10^3/uL (3.6-10.0)
[2023-01-10 06:40] LABS: BLOOD UREA NITROGEN 13 mg/dL (7-18); CALCIUM 8.1 mg/dL (8.5-10.1); CARBON DIOXIDE 26.9 mmol/L (21-32); CHLORIDE 108 mmol/L (98-107); CREATININE 1.12 mg/dL (0.55-1.02); GLUCOSE 96 mg/dL (65-99); POTASSIUM 3.8 mmol/L (3.5-5.1); SODIUM 143 mmol/L (136-145); eGFR NON BLACK RACES 49 (>60)
[2023-01-10] MEDS: PROVENTIL NEB TX 0.083% 2.5MG/ 3ML NEB SCH ×4 (08:59→21:00)
[2023-01-10] MEDS: PULMICORT NEB TX 0.5 MG NEB SCH ×2 (09:00→21:00)
[2023-01-10] MEDS: EFFEXOR TAB 75 MG (BID DOSING) PO SCH (09:49)
[2023-01-10] MEDS: PEPCID TAB 20 MG PO SCH ×2 (09:49→21:07)
[2023-01-10] MEDS: COREG TAB 3.125 MG PO SCH ×2 (09:49→21:06)
[2023-01-10] MEDS: NEURONTIN CAP 100 MG PO SCH ×2 (09:49→21:06)
[2023-01-10] MEDS: PROTONIX TAB 40 MG PO SCH ×2 (09:49→21:06)
[2023-01-10] MEDS: ROCEPHIN VIAL 1 GRAM 1 G in NS 100 ML IV 100 ML IV SCH (09:49)
[2023-01-10] MEDS: SINGULAIR TAB 10 MG PO SCH (09:49)
[2023-01-10] MEDS: HEMOCYTE-PLUS PO SCH (09:49)
[2023-01-10] MEDS: SYNTHROID 25 mcg TAB PO SCH (09:49)
[2023-01-10] MEDS: CORDARONE TAB 200 MG PO SCH (09:50)
[2023-01-10] MEDS: LIPITOR TAB 40 MG PO SCH (09:50)
[2023-01-10] MEDS: ARICEPT TAB 10 MG PO SCH (09:50)
[2023-01-10] MEDS: BACTROBAN TOPICAL OINT TOP SCH (09:53)
--- NOTE | 2023-01-10 12:05 | RAD ---
HISTORYPneumonia SOBSTUDYPortable AP chestCOMPARISONJuly 2022FINDINGSHeart size normal. There is no definite pulmonary infiltrate/pneumonia, atelectasis or CHF. Post inflammatory changes with calcification noted at the left apical pleura.IMPRESSIONNo acute chest findings.Electronically signed by: DEVANG BERNAL (Jan 10, 2023 12:03:34)
[2023-01-10] MEDS: PLAVIX PO SCH (21:06)
--- NOTE | 2023-01-10 22:12 | PCM.PROG ---
Progress Note - Progress Note for Day of Date of Exam: 01/10/23 - Subjective Subjective: IS CURRENTLY OBSERVATION STATUS FOR TREATMENT OF BRONCHOPNEUMONIA, CELLULITIS OF LEFT ELBOW, UTI, ANEMIA, DEHYDRATION, AND ACUTE ON CHRONIC RENAL INSUFFICIENCY. SHE HAS A PMH OF IRON DEFICIENCY ANEMIA, GASTRIC ANTRAL VASCULAR ECTASIA SYNDROME, ARTHRITIS, ASTHMA, CHF, COPD, CAD, DYSL IPIDEMIA, GERD, HTN, [place], CORONARY STENTS, CHOLECYSTECTOMY, HYSTERECTOMY, AND TONSILLECTOMY. TODAY, SHE IS ALERT AND ORIENTED, LYING IN BED ON MORNING ROUNDS. SHE CONTINUES TO COMPLAIN OF GENERALIZED WEAKNESS, SHORTNESS OF BREATH AT TIMES, AND PAIN TO THE LEFT ELBOW. SHE REPORTS SLIGHT IMPROVEMENT IN SYMPTOMS TODAY. ON EXAMINATION, HEART IS REGULAR IN RATE AND RHYTHM. BILATERAL LUNGS ARE NOTED WITH SCATTERED WHEEZING. ABDOMEN IS ROUND, SOFT, AND NON-TENDER WITH NORMAL BOWEL SOUNDS NOTED IN ALL QUADRANTS. ERYTHEMA AND SKIN TEAR NOTED TO THE LEFT ELBOW. GOOD RANGE OF MOTION NOTED TO THE UPPER AND LOWER EXTREMITIES WITH NO EDEMA NOTED. SHE IS CURRENTLY UTILIZING OXYGEN VIA NASAL CANNULA AT 2 LPM. HER SATURATIONS HAVE BEEN IN THE 90s THROUGHOUT THE NIGHT. HER VITALS THIS MORNING ARE: 97.9-68-22-96%-183/74. LABS WERE OBTAINED. WBC 6.9, RBC 2.69, HGB 7.7, HCT 22.8, PLT COUNT 213, SODIUM 143, POTASSIUM 3.8, CHLORIDE 108, BUN 13, CREATININE 1.12, GLUCOSE 96, CALCIUM 8.1, BNP 519. STOOL WAS POSITIVE FOR OCCULT BLOOD. URINE CULTURE WAS POSITIVE FOR GROWTH OF E.COLI. BLOOD CULTURES ARE PENDING. CHEST XRAY WAS OBTAINED THIS MORNING AND REVEALED: No acute chest. findings. SHE IS CURRENTLY RECEIVING D5W AT 50 ML/HR, ROCEPHIN 1G IV DAILY, MUPIROCIN OINTMENT DAILY, ALBUTEROL NEBS QID PRN, PULMICORT NEBS BID. HER HOME MEDICATIONS OF AMIODARONE, ATORVASTATIN, CLOPIDOGREL, DONEPEZIL, FAMOTIDINE, GABAPENTIN, VISTARIL, SYNTHROID, SINGULAIR, PANTOPRAZOLE, REQUIP, AND VENLAFAXINE WERE RESUMED. WE WILL CONTINUE WITH CURRENT PLAN OF CARE TODAY. WE WILL CONSULT DUE TO STEADY DECLINE IN HEMOGLOBIN. OTHERWISE, WE WILL FOLLOW UP WITH AM LABS AND 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. TIME SPENT ON CLINICAL ASSESSMENT, REVIEWING LABS AND IMAGING, DECISION MAKING, AND DOCUMENTATION GREATER THAN 45 MINUTES. - Past Medical Family Social History Past Med/Fam/Surg Hx: No changes since H&P Allergies: Allergies levofloxacin [From Levaquin] Allergy (Unknown, Verified 01/06/23 19:38) Onset Date: 05/04/2018 - Review of Systems ROS: No change since H&P - Vital Signs and I&O's Vital Signs: Vital Signs Temperature 98.6 F Temperature 98.1 F Pulse Rate [Left] 70 Pulse Rate [Left] 69 Respiratory Rate 18 Respiratory Rate 18 Blood Pressure [Left Arm] 119/53 Blood Pressure [Left Arm] 136/60 O2 Sat by Pulse Oximetry 98 O2 Sat by Pulse Oximetry 96 Intake and Output: Intake & Output 01/08/23 01/09/23 01/10/23 01/11/23 11:59 11:59 11:59 11:59 Intake Total 2534 / 2534 2283 / 2283 966 / 966 360 / 360 Balance 2534 / 2534 2283 / 2283 966 / 966 360 / 360 - Physical Exam Oriented: Normal Eyes: Normal Ear: Normal Nose: Normal Throat: Normal Respiratory: Generalized, Wheezes Cardiovascular: Normal : Normal Auscultation: Bowel Sounds: Normal Palpation: Normal Tenderness: Normal Skin: Red (LEFT ELBOW ), Tender Musculoskeletal: Left, Arm, Tender Psychiatric: Normal Mood Description: Calm Affect: Normal Speech Pattern: Clear, Appropriate - Laboratory and Diagnostics Result Diagrams: 01/10/23 05:22 01/10/23 05:22 Labs: 01/06/23 14:35 Blood Blood Culture - Preliminary 01/06/23 14:20 Blood Blood Culture - Preliminary 01/06/23 14:44 Urine,Catheterized Urine Culture - Final Escherichia Coli Laboratory WBC 6.9 X10^3/uL (3.6-10.0) 01/10/23 05:22 RBC 2.69 X10^6/uL (3.5-5.4) L 01/10/23 05:22 Hgb 7.7 g/dL (12.0-16.0) L 01/10/23 05:22 Hct 22.8 % (36.0-47.0) L 01/10/23 05:22 MCV 84.8 fL (80.0-100.0) 01/10/23 05:22 MCH 28.5 pg (27.0-34.0) 01/10/23 05:22 MCHC 33.6 g/dL (33.0-35.0) 01/10/23 05:22 RDW 15.6 % (11.6-16.5) 01/10/23 05:22 Plt Count 213 X10^3/uL (150.0-450.0) 01/10/23 05:22 MPV 8.7 fL (7.4-11.0) 01/10/23 05:22 Neut % (Auto) 64.6 % (42.0-75.0) 01/10/23 05:22 Lymph % (Auto) 17.9 % (21.0-51.0) L 01/10/23 05:22 [place] % (Auto) 14.1 % (0.0-13.0) H 01/10/23 05:22 Eos % (Auto) 2.4 % (0.9-2.9) 01/10/23 05:22 Baso % (Auto) 1.0 % (0.2-1.0) 01/10/23 05:22 Neut # (Auto) 4.4 x10^3/uL (2.2-4.8) 01/10/23 05:22 Lymph # (Auto) 1.2 X10^3/uL (1.3-2.9) L 01/10/23 05:22 [place] # (Auto) 1.0 x10^3/uL (0.3-0.8) H 01/10/23 05:22 Eos # (Auto) 0.2 x10^3/uL (0.0-0.2) 01/10/23 05:22 Baso # (Auto) 0.1 X10^3/uL (0.0-0.1) 01/10/23 05:22 Absolute Nucleated RBC 0.0 /100WBC 01/10/23 05:22 D-Dimer 0.73 ug/ml (0.0-0.57) H 01/06/23 14:35 Sodium 143 mmol/L (136-145) 01/10/23 05:22 Corrected Sodium TNP 01/10/23 05:22 Potassium 3.8 mmol/L (3.5-5.1) 01/10/23 05:22 Chloride 108 mmol/L (98-107) H 01/10/23 05:22 Carbon Dioxide 26.9 mmol/L (21-32) 01/10/23 05:22 BUN 13 mg/dL (7-18) 01/10/23 05:22 Creatinine 1.12 mg/dL (0.55-1.02) H 01/10/23 05:22 Est GFR (MDRD) Af Amer 59 (>60) 01/10/23 05:22 Est GFR (MDRD) Non-Af 49 (>60) L 01/10/23 05:22 Glucose 96 mg/dL (65-99) 01/10/23 05:22 Lactic Acid 0.4 mmol/L (0.4-2.0) 01/06/23 14:20 Calcium 8.1 mg/dL (8.5-10.1) L 01/10/23 05:22 Corrected Calcium 9.2 mg/dL (8.5-10.1) 01/09/23 04:28 Total Bilirubin 0.20 mg/dL (0.2-1.0) 01/09/23 04:28 AST 12 Units/L (15-37) L 01/09/23 04:28 ALT 13 Units/L (12-78) 01/09/23 04:28 Alkaline Phosphatase 49 Units/L (46-116) 01/09/23 04:28 Creatine Kinase 61 Units/L (26-192) 01/06/23 14:20 Troponin I High Sens 22.7 ng/L (4.0-60.0) 01/06/23 14:20 B-Natriuretic Peptide 519 pg/mL (0-79) H* 01/10/23 05:22 Total Protein 5.4 g/dL (6.4-8.2) L 01/09/23 04:28 Albumin 2.3 g/dL (3.4-5.0) L 01/09/23 04:28 Globulin 3.1 g/dL (2.5-4.5) 01/09/23 04:28 Albumin/Globulin Ratio 0.7 Ratio (1.1-2.1) L 01/09/23 04:28 Specimen Type Catherized urine 01/06/23 14:44 Urine Color Pale yellow (YELLOW) 01/06/23 14:44 Urine Appearance Hazy (CLEAR) 01/06/23 14:44 Urine pH 6.0 (5.0 - 8.0) 01/06/23 14:44 Ur Specific [place] 1.015 (1.000-1.030) 01/06/23 14:44 Urine Protein 2+ (NEGATIVE) 01/06/23 14:44 Urine Glucose (UA) Negative (NEGATIVE) 01/06/23 14:44 Urine Ketones Negative (NEGATIVE) 01/06/23 14:44 Urine Blood 1+ (NEGATIVE) 01/06/23 14:44 Urine Nitrite Negative (NEGATIVE) 01/06/23 14:44 Urine Bilirubin Negative (NEGATIVE) 01/06/23 14:44 Urine Urobilinogen Normal (NORMAL) 01/06/23 14:44 Ur Leukocyte Esterase 2+ (NEGATIVE) 01/06/23 14:44 Urine RBC None seen /HPF (0-3) 01/06/23 14:44 Urine WBC 5-10 /HPF (0-5) A 01/06/23 14:44 Ur Squamous Epith Cells Negative /HPF (NEGATIVE) 01/06/23 14:44 Urine Bacteria 2+ /HPF (NEGATIVE) 01/06/23 14:44 Ur Culture Indicated? Yes/culture set up 01/06/23 14:44 Stl Occult Blood (IFOB) Positive (NEGATIVE) A 01/08/23 03:18 SARS-CoV-2 (PCR) Negative (NEGATIVE) 01/07/23 11:23 Influenza Type A (PCR) Negative (NEGATIVE) 01/07/23 11:23 Influenza Type B (PCR) Negative (NEGATIVE) 01/07/23 11:23 RSV (PCR) Negative (NEGATIVE) 01/07/23 11:23 - Plan (1) Bronchopneumonia Status: Acute Plan: SUPPLEMENTAL OXYGEN, D5W AT 20 ML/HR, ROCEPHIN 1G IV DAILY, MUPIROCIN OINTMENT DAILY, ALBUTEROL NEBS QID PRN, PULMICORT NEBS BID. HER HOME MEDICATIONS OF AMIODARONE, ATORVASTATIN, CLOPIDOGREL, DONEPEZIL, FAMOTIDINE, GABAPENTIN, VISTARIL, SYNTHROID, SINGULAIR, PANTOPRAZOLE, REQUIP, AND VENLAFAXINE WERE RESUMED. (2) Cellulitis of left elbow Status: Acute (3) Hypotension Status: Acute Qualifiers: Hypotension type: unspecified hypotension type Qualified Code(s): I95.9 - Hypotension, unspecified (4) UTI (urinary tract infection) Status: Acute Qualifiers: Urinary tract infection type: acute cystitis Hematuria presence: without he maturia Qualified Code(s): N30.00 - Acute cystitis without hematuria (5) Chronic renal insufficiency Status: Acute Qualifiers: Chronic kidney disease stage: stage 2 (mild) Qualified Code(s): N18.2 - Chronic kidney disease, stage 2 (mild) (6) Dehydration Status: Acute (7) Anemia Status: Suspected Qualifiers: Anemia type: iron deficiency Iron deficiency anemia type: unspecified iron deficiency Qualified Code(s): D50.9 - Iron deficiency anemia, unspecified Plan: GI CONSULT, RESUME HEMOCYTE PLUS
[2023-01-11] MEDS: D5W 1,000 ML IV 1,000 ML IV SCH ×2 (03:20→16:34)
[2023-01-11] MEDS: REQUIP PO SCH ×3 (05:40→21:28)
[2023-01-11 06:16] LABS: BASOPHILS # (AUTO) 0.1 X10^3/uL (0.0-0.1); BASOPHILS % (AUTO) 1.1 % (0.2-1.0); EOSINOPHILS # (AUTO) 0.2 x10^3/uL (0.0-0.2); EOSINOPHILS % (AUTO) 2.2 % (0.9-2.9); HEMATOCRIT 21.2 % (36.0-47.0); HEMOGLOBIN 7.1 g/dL (12.0-16.0); LYMPHOCYTES # (AUTO) 1.3 X10^3/uL (1.3-2.9); LYMPHOCYTES % (AUTO) 17.4 % (21.0-51.0); MEAN CORPUSCULAR HEMOGLOBIN 28.5 pg (27.0-34.0); MEAN CORPUSCULAR HGB CONC 33.6 g/dL (33.0-35.0); MEAN CORPUSCULAR VOLUME 84.9 fL (80.0-100.0); MEAN PLATELET VOLUME 8.5 fL (7.4-11.0); MONOCYTES # (AUTO) 1.1 x10^3/uL (0.3-0.8); MONOCYTES % (AUTO) 15.5 % (0.0-13.0); NEUTROPHILS # (AUTO) 4.7 x10^3/uL (2.2-4.8); NEUTROPHILS % (AUTO) 63.8 % (42.0-75.0); PLATELET COUNT 245 X10^3/uL (150.0-450.0); RED CELL DISTRIBUTION WIDTH 15.2 % (11.6-16.5); WHITE BLOOD COUNT 7.3 X10^3/uL (3.6-10.0)
[2023-01-11 06:20] LABS: BLOOD UREA NITROGEN 16 mg/dL (7-18); CALCIUM 7.8 mg/dL (8.5-10.1); CARBON DIOXIDE 27.3 mmol/L (21-32); CHLORIDE 107 mmol/L (98-107); CREATININE 1.18 mg/dL (0.55-1.02); GLUCOSE 95 mg/dL (65-99); POTASSIUM 4.1 mmol/L (3.5-5.1); SODIUM 142 mmol/L (136-145); eGFR NON BLACK RACES 46 (>60)
[2023-01-11] MEDS: PULMICORT NEB TX 0.5 MG NEB SCH ×2 (08:58→21:00)
[2023-01-11] MEDS: PROVENTIL NEB TX 0.083% 2.5MG/ 3ML NEB SCH ×4 (08:58→21:00)
[2023-01-11] MEDS: SINGULAIR TAB 10 MG PO SCH (09:42)
[2023-01-11] MEDS: COREG TAB 3.125 MG PO SCH ×2 (09:42→21:23)
[2023-01-11] MEDS: PEPCID TAB 20 MG PO SCH ×2 (09:43→21:24)
[2023-01-11] MEDS: PROTONIX TAB 40 MG PO SCH ×2 (09:43→21:24)
[2023-01-11] MEDS: EFFEXOR TAB 75 MG (BID DOSING) PO SCH (09:43)
[2023-01-11] MEDS: CORDARONE TAB 200 MG PO SCH (09:43)
[2023-01-11] MEDS: SYNTHROID 25 mcg TAB PO SCH (09:43)
[2023-01-11] MEDS: BACTROBAN TOPICAL OINT TOP SCH (09:43)
[2023-01-11] MEDS: HEMOCYTE-PLUS PO SCH (09:43)
[2023-01-11] MEDS: NEURONTIN CAP 100 MG PO SCH ×2 (09:43→21:23)
[2023-01-11] MEDS: ROCEPHIN VIAL 1 GRAM 1 G in NS 100 ML IV 100 ML IV SCH (09:43)
[2023-01-11] MEDS: LIPITOR TAB 40 MG PO SCH (09:43)
[2023-01-11] MEDS: ARICEPT TAB 10 MG PO SCH (09:43)
[2023-01-11] MEDS ORDERED: NS 250 ML IV 250 ML IV ONE (10:57)
[2023-01-11 16:14] LABS: HEMATOCRIT 26.5 % (36.0-47.0)
--- NOTE | 2023-01-11 16:38 | DR.CONSULT ---
Consult - Consultation for Day of: Date: 01/11/23 (GI) - Chief Complaint Chief Complaint: Patient is an 87 y/o who is referred for anemia. Patient has no GI complaints at present. No melena or hematochezia reported. Last EGD done 08/15/19, showed gastric antral vascular ectasia, no active bleeding. Last colonoscopy done 09/14/17, showed adenoma polyp x1, sigmoid diverticulosis, and internal hemorrhoids. Patient has capsule endoscopy done on 11/12/18, which showed bleeding AVMs. Patient is currently on Protonix at home. She is also on Plavix. PMH OF ANEMIA, ARTHRITIS, ASTHMA, CHF, COPD, CAD, DYSLIPIDEMIA, GERD, HTN, CT, CORONARY STENTS, CHOLECYSTECTOMY, HYSTERECTOMY, AND TONSILLECTOMY. SHE PRESENTED TO THE ER WITH COMPLAINTS OF WEAKNESS AND LOW BLOOD PRESSURE FOR THE PAST 2-3 DAYS. SHE REPORTS THAT HER OXYGEN SATURATIONS HAVE BEEN RUNNING IN THE LOW 90s. SHE USES OXYGEN AT HOME, BUT ONLY AT NIGHT. SHE ALSO COMPLAINS OF LEFT ELBOW PAIN. EXAMINATION REVEALED A SKIN TEAR AND REDNESS TO THE AREA SURROUNDING THE SKIN TEAR. SHE DENIES CHEST PAIN, FEVER, CHILLS, SHORTNESS OF BREATH, OR DYSURIA. ON ARRIVAL, HER VITALS WERE: 99.2-24-20-93%-106/63. LABS WERE OBTAINED. WBC 6.9, RBC 2.95, HGB 8.5, HCT 25.4, PLT COUNT 257, D-DIMER 0.73, SODIUM 142, POTASSIUM 4.7, CHLORIDE 104, CARBON DIOXIDE 31.9, BUN 20, CREATININE 1.71, GLUCOSE 93, LACTIC ACID 0.4, CALCIUM 8.0, TOTAL BILI 0.20, AST 21, ALT 17, ALK PHOS 52, CREATINE KINASE 61, TROPONIN 22.7, TOTAL PROTEIN 6.1, ALBUMIN 2.9. UR INALYSIS WAS OBTAINED AND REVEALED: WBC 5-10, RBC NONE SEEN, LEUKOCYTES 2+, BACTERIA 2+. A URINE CULTURE AND BLOOD CULTURES WERE SET UP. A CHEST XRAY WAS OBTAINED AND REVEALED: Chronic interstitial lung changes. Mild infiltrate right middle lobe may represent scarring, atelectasis or developing infectious process. - Past Medical History Past Medical History: CT, Coronary Artery Disease, Hypertension, Dyslipidemia, Anemia, COPD, Asthma, GERD, Arthritis, CHF Additional Medical History: Breast and uterine cancer - Past Surgical History Surgical History: Angioplasty/Stents, Cholecystectomy, Hysterectomy, Other, Tonsillectomy - Family History Family Medical History: Diabetes Mellitus, Cancer, CT, Coronary Artery Disease, Sudden Cardiac , Hypertension - Social History Does patient currently use any type of tobacco product: Yes Have you used tobacco products in the last 12 months: Yes Type of Tobacco Use: Cigarettes Does any household member use tobacco: No Alcohol Use: None Drug Use: None - Medications Home Medications: levofloxacin [From Levaquin] Allergy (Unknown, Verified 01/06/23 19:38) CONTINUE taking the following medications pantoprazole 40 mg tablet,delayed release 40 mg PO BID 01/06/23 [History] - Review of Systems Constitutional: See HPI, Weakness. denies: No Symptoms Reported, Fever, Chills, Sweats, Malaise, Other Eyes: No Symptoms Reported. denies: See HPI, Pain, Vision Change, Conjunctivae Inflammation, Eyelid Inflammation, Redness, Other ENT: No Symptoms Reported. denies: See HPI, Ear Pain, Ear Discharge, Nose Pain, Nose Discharge, Nose Congestion, Mouth Pain, Mouth Swelling, Throat Pain, Throat Swelling, Other Respiratory: See HPI. denies: No Symptoms Reported, Cough, Dry, Shortness of Breath, Hemoptysis, SOB with Excertion, Pleuritic Pain, Sputum, Wheezing, Other Cardiovascular: See HPI. denies: No Symptoms Reported, Chest Pain, Palpitations, Orthopnea, Paroxysmal Noc. Dyspnea, Edema, Light Headedness, Other Gastrointestinal: No Symptoms Reported, See HPI. denies: Nausea, Vomiting, Abdominal Pain, Diarrhea, Constipation, Melena, Hematochezia, Other Genitourinary: No Symptoms Reported. denies: See HPI, Dysuria, Frequency, Incontinence, Hematuria, Retention, Other Musculoskeletal: No Symptoms Reported. denies: See HPI, Shoulder Pain, Arm Pain, Back Pain, Hand Pain, Leg Pain, Foot Pain, Neck Pain, Other Skin: No Symptoms Reported. denies: See HPI, Rash, Lesions, Jaundice, Bruising, Wound, Ecchymosis, Other Neurological: No Symptoms Reported. denies: See HPI, Weakness, Numbness, Incoordination, Change in Speech, Confusion, Seizures, Other - Physical Exam Vital Signs: Vital Signs Pulse Rate 91 O2 Sat by Pulse Oximetry 97 Oriented: Normal. negative: Time, Person, Place, Not Oriented, Unable to test, Other Eyes: Normal. negative: Blurred Vision, Diplopia, Discharge, Pain, Redness, Photophobia, Other Ear: Normal. negative: Right, Left, Swelling, Ecchymosis, Hemotypanum, Abrasion, Laceration Nose: negative: Normal, Injected, Discharge, Blood, Other Throat: negative: Normal, Tonsillar Hypertrophy, Red, Exudate, Dry, Other Respiratory: Clear Throughout. negative: Diminished Throughout, Rhonchi Throughout, Rales Throughout, Wheezes Throughout, RUL Clear, RML Clear, RLL Clear, NALINI Clear, LML Clear, LLL Clear, RUL Diminished, RML Diminished, RLL Diminished, NALINI Diminished, LML Diminished, LLL Diminished, RUL Absent, RML Absent, RLL Absent, NALINI Absent, LML Absent, LLL Absent, RUL Rhonchi, RML Rhonchi, RLL Rhonchi, NALINI Rhonchi, LML Rhonchi, LLL Rhonchi, RUL Insp. Wheeze, RML Insp. Wheeze, RLL Insp. Wheeze, NALINI Insp.Wheeze, LML Insp.Wheeze, LLL Insp.Wheeze, RUL Exp. Wheeze, RML Exp. Wheeze, RLL Exp. Wheeze, NALINI Exp. Wheeze, LML Exp. Wheeze, LLL Exp. Wheeze, RUL Rales, RML Rales, RLL Rales, NALINI Rales, LML Rales, LLL Rales, RUL Rub, RML Rub, RLL Rub, NALINI Rub, LML Rub, LLL Rub, RUL Squeak, RML Squeak, RLL Squeak, NALINI Squeak, LML Squeak, LLL Squeak Cardiovascular: Normal. negative: Tachycardia, Bradycardia, Irregular, S3, S4, Systolic, Diastolic, Murmur, Edema, Other : negative: Normal, Dysuria, Hematuria, Frequency, Discharge, Testicular Pain, Bleeding, , Other Auscultation: Bowel Sounds: Normal. negative: Bruit, Absent, Increased, Decreased, High Pitched, Other Palpation: negative: Normal, Spleen Enlarged, Liver Enlarged, Mass Pulsatile, Other Tenderness: Normal. negative: Diffuse, RUQ, RLQ, LUQ, LLQ, Epigastric, Periumbilical, Suprapubic, Mild, Moderate, Severe, Rebound, Guarding, Rigidity, Other Skin: Normal. negative: Decreased Turgur, Rash, Papular, Macular, Maculopapular, Vesicular, Pustular, Petechial, Red, Tender, Hot, Diaphoresis, Wound, Bruising, Ecchymosis, Other Musculoskeletal: Normal. negative: Right, Left, Shoulder, Clavicle, Arm, Elbow, Forearm, Wrist, Hand, Hip, Thigh, Knee, Leg, Ankle, Foot, Back:Thoracic, Back:Lumbar, Back:Midline, Back:Paraspinous, Pelvis, Swelling, Tender, Deformity, Pulse Deficit, Motor Deficit, Sensory Deficit, Instability, Crepitance Psychiatric: Normal. negative: Anxiety, Depression, Agitation, Other Mood Description: Calm. negative: Angry, Apathetic, Depressed, Fearful, Flat, Happy, Hostile, Sad, Suspicious, Withdrawn, Anxious, Appropriate, Labile Affect: Normal. negative: Angry, Anxious, Depressed, Flat, Hysterical, Quiet, Violent Speech Pattern: Clear, Appropriate. negative: Unclear, Inappropriate, Delayed, Slurred, Excessive, Aphasic, Artificially Ventilated, Trach(not ventilated) - Plan Plan: Assessment. 1. Acute on chronic anemia, drop in Hgb, R/O GI loss. 2. H/O GAVE, H/O small bowel AVM. 3. GERD. Plan: Monitor Hgb, transfuse as needed. Continue Protonix. EGD in AM. Plan D/W Dr. Stewart - Allergies Allergies/Adverse Reactions: Allergies Allergy/AdvReac Type Severity Reaction Status Date / Time levofloxacin [From Levaquin] Allergy Unknown Verified 01/06/23 19:38
[2023-01-11] MEDS: PLAVIX PO SCH (21:24)
[2023-01-11 22:30] LABS: ALANINE AMINOTRANSFERASE 11 Units/L (12-78); ALBUMIN 2.2 g/dL (3.4-5.0); ALKALINE PHOSPHATASE 43 Units/L (46-116); ASPARTATE AMINO TRANSFERASE 12 Units/L (15-37); COR CA(FOR HYPOALB) 9.2 mg/dL (8.5-10.1); TOTAL PROTEIN 5.4 g/dL (6.4-8.2)
--- NOTE | 2023-01-11 22:49 | RAD ---
HISTORYSOB Relevant Clinical InformationSTUDYCHEST, 1 VIEWCOMPARISONFINDINGSThe trachea is midline. The cardiac silhouette is unremarkable. The lungs are clear without focal infiltrate or effusion. The bony thorax is unremarkable.IMPRESSIONNo acute cardiopulmonary findings .Electronically signed by: Joe Blankenship (Jan 11, 2023 22:49:26)
[2023-01-12] MEDS: VISTARIL PO PRN
[2023-01-12] MEDS: D5W 1,000 ML IV 1,000 ML IV SCH ×2 (05:47→20:50)
[2023-01-12] MEDS: REQUIP PO SCH ×3 (05:47→21:18)
[2023-01-12 05:57] LABS: BASOPHILS # (AUTO) 0.1 X10^3/uL (0.0-0.1); BASOPHILS % (AUTO) 1.3 % (0.2-1.0); EOSINOPHILS # (AUTO) 0.2 x10^3/uL (0.0-0.2); EOSINOPHILS % (AUTO) 2.6 % (0.9-2.9); HEMATOCRIT 25.4 % (36.0-47.0); HEMOGLOBIN 8.6 g/dL (12.0-16.0); LYMPHOCYTES # (AUTO) 1.5 X10^3/uL (1.3-2.9); LYMPHOCYTES % (AUTO) 21.9 % (21.0-51.0); MEAN CORPUSCULAR HEMOGLOBIN 28.3 pg (27.0-34.0); MEAN CORPUSCULAR HGB CONC 34.1 g/dL (33.0-35.0); MEAN PLATELET VOLUME 8.5 fL (7.4-11.0); MONOCYTES # (AUTO) 1.1 x10^3/uL (0.3-0.8); MONOCYTES % (AUTO) 16.4 % (0.0-13.0); NEUTROPHILS % (AUTO) 57.8 % (42.0-75.0); PLATELET COUNT 240 X10^3/uL (150.0-450.0); RED BLOOD COUNT 3.06 X10^6/uL (3.5-5.4); RED CELL DISTRIBUTION WIDTH 15.7 % (11.6-16.5)
[2023-01-12 06:19] LABS: ALANINE AMINOTRANSFERASE 12 Units/L (12-78); ALBUMIN 2.1 g/dL (3.4-5.0); ALKALINE PHOSPHATASE 43 Units/L (46-116); ASPARTATE AMINO TRANSFERASE 16 Units/L (15-37); BLOOD UREA NITROGEN 17 mg/dL (7-18); CALCIUM 7.8 mg/dL (8.5-10.1); CARBON DIOXIDE 28.1 mmol/L (21-32); CHLORIDE 109 mmol/L (98-107); COR CA(FOR HYPOALB) 9.3 mg/dL (8.5-10.1); CREATININE 1.09 mg/dL (0.55-1.02); GLUCOSE 98 mg/dL (65-99); POTASSIUM 4.1 mmol/L (3.5-5.1); SODIUM 143 mmol/L (136-145); TOTAL PROTEIN 5.5 g/dL (6.4-8.2); eGFR NON BLACK RACES 51 (>60)
--- NOTE | 2023-01-12 07:19 | RAD ---
HISTORYShortness of breathSTUDYChest AP [id number] t size is normal. Saray are normal. Aorta is calcified. Lung castro are clear. No pleural effusions are identified. Bony thorax is unremarkable.IMPRESSIONNo significant abnormality identifiedElectronically signed by: KELSI GARCIA (Jan 12, 2023 07:18:56)
--- NOTE | 2023-01-12 08:38 | PCM.PROG ---
Progress Note Progress Note for Day of Date of Exam: 01/11/23 Subjective Subjective: PT IS A 87 YEAR OLD FEMALE ADMITTED FOR BRONCHOPNEUMONIA, CELLULITIS OF LEFT ELBOW, UTI, ANEMIA, DEHYDRATION, AND ACUTE ON CHRONIC RENAL INSUFFICIENCY. SHE HAS A PMH OF IRON DEFICIENCY ANEMIA, GASTRIC ANTRAL VASCULAR ECTASIA SYNDROME, ARTHRITIS, ASTHMA, CHF, COPD, CAD, DYSLIPIDEMIA, GERD, HTN, AR, CORONARY STENTS, CHOLECYSTECTOMY, HYSTERECTOMY, AND TONSILLECTOMY. THIS MORNING SHE IS SITTING COMFORTABLY IN BED ON MORNING ROUNDS EATINGN BREAKFAST. SHE REPORTS IMPROVEMENT IN HER SYMPTOMS TODAY. SHE IS CURRENTLY UTILIZING OXYGEN VIA NASAL CANNULA AT 2 LPM WHICH IS AT BASELINE. STOOL WAS POSITIVE FOR OCCULT BLOOD. URINE CULTURE WAS POSITIVE FOR GROWTH OF E.COLI. BLOOD CULTURES ARE NO GROWTH TO DATE. CHEST XRAY WAS OBTAINED THIS MORNING AND REVEALED: NO ACUTE FINDINGS. SHE IS CURRENTLY RECEIVING D5W AT 50 ML/HR, ROCEPHIN 1G IV DAILY, MUPIROCIN OINTMENT DAILY, ALBUTEROL NEBS QID PRN, PULMICORT NEBS BID. HER HOME MEDICATIONS OF AMIODARONE, ATORVASTATIN, CLOPIDOGREL, DONEPEZIL, FAMOTIDINE, GABAPENTIN, VISTARIL, SYNTHROID, SINGULAIR, PANTOPRAZOLE, REQUIP, AND VENLAFAXINE WERE RESUMED. WE WILL CONTINUE WITH CURRENT PLAN OF CARE TODAY. WE WILL CONSULT DUE TO STEADY DECLINE IN HEMOGLOBIN. TRANFUSE 1 UNIT PACKED RED BLOOD CELLS. OTHERWISE, WE WILL FOLLOW UP WITH AM LABS AND 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. Past Medical Family Social History Past Med/Fam/Surg Hx: No changes since H&P Allergies: Allergies levofloxacin [From Levaquin] Allergy (Unknown, Verified 01/06/23 19:38) Onset Date: 05/04/2018 Review of Systems ROS changes noted: SEE HPI Vital Signs and I&O's Vital Signs: Vital Signs Temperature 97.6 F Temperature 99.0 F Pulse Rate [Left] 73 Pulse Rate [Left] 70 Respiratory Rate 18 Respiratory Rate 18 Blood Pressure [Left Arm] 152/63 Blood Pressure [Left Arm] 127/56 O2 Sat by Pulse Oximetry 97 O2 Sat by Pulse Oximetry 94 Intake and Output: Intake & Output 01/08/23 01/09/23 01/10/23 01/11/23 23:59 23:59 23:59 23:59 Intake Total 2425 / 2425 774 / 774 1579 / 1579 357 / 357 Balance 2424 / 2424 774 / 774 1579 / 1579 357 / 357 Physical Exam Oriented: Normal Eyes: Normal Ear: Normal Nose: Normal Throat: Normal Respiratory: Generalized and Wheezes Cardiovascular: Normal : Normal Auscultation: Bowel Sounds: Normal Tenderness: Normal Skin: Red (LEFT ELBOW ) and Tender Musculoskeletal: Left, Arm and Tender Psychiatric: Normal Mood Description: Calm Affect: Normal Speech Pattern: Clear and Appropriate Laboratory and Diagnostics Result Diagrams: 01/12/23 05:36 01/12/23 05:36 Labs: 01/06/23 14:35 Blood Blood Culture - Preliminary 01/06/23 14:20 Blood Blood Culture - Preliminary 01/06/23 14:44 Urine,Catheterized Urine Culture - Final Escherichia Coli Laboratory WBC 7.3 X10^3/uL (3.6-10.0) 01/11/23 05:28 RBC 2.50 X10^6/uL (3.5-5.4) L 01/11/23 05:28 Hgb 7.1 g/dL (12.0-16.0) L 01/11/23 05:28 Hct 21.2 % (36.0-47.0) L 01/11/23 05:28 MCV 84.9 fL (80.0-100.0) 01/11/23 05:28 MCH 28.5 pg (27.0-34.0) 01/11/23 05:28 MCHC 33.6 g/dL (33.0-35.0) 01/11/23 05:28 RDW 15.2 % (11.6-16.5) 01/11/23 05:28 Plt Count 245 X10^3/uL (150.0-450.0) 01/11/23 05:28 MPV 8.5 fL (7.4-11.0) 01/11/23 05:28 Neut % (Auto) 63.8 % (42.0-75.0) 01/11/23 05:28 Lymph % (Auto) 17.4 % (21.0-51.0) L 01/11/23 05:28 [place] % (Auto) 15.5 % (0.0-13.0) H 01/11/23 05:28 Eos % (Auto) 2.2 % (0.9-2.9) 01/11/23 05:28 Baso % (Auto) 1.1 % (0.2-1.0) H 01/11/23 05:28 Neut # (Auto) 4.7 x10^3/uL (2.2-4.8) 01/11/23 05:28 Lymph # (Auto) 1.3 X10^3/uL (1.3-2.9) 01/11/23 05:28 [place] # (Auto) 1.1 x10^3/uL (0.3-0.8) H 01/11/23 05:28 Eos # (Auto) 0.2 x10^3/uL (0.0-0.2) 01/11/23 05:28 Baso # (Auto) 0.1 X10^3/uL (0.0-0.1) 01/11/23 05:28 Absolute Nucleated RBC 0.0 /100WBC 01/11/23 05:28 D-Dimer 0.73 ug/ml (0.0-0.57) H 01/06/23 14:35 Sodium 142 mmol/L (136-145) 01/11/23 05:28 Corrected Sodium TNP 01/11/23 05:28 Potassium 4.1 mmol/L (3.5-5.1) 01/11/23 05:28 Chloride 107 mmol/L (98-107) 01/11/23 05:28 Carbon Dioxide 27.3 mmol/L (21-32) 01/11/23 05:28 BUN 16 mg/dL (7-18) 01/11/23 05:28 Creatinine 1.18 mg/dL (0.55-1.02) H 01/11/23 05:28 Est GFR (MDRD) Af Amer 56 (>60) L 01/11/23 05:28 Est GFR (MDRD) Non-Af 46 (>60) L 01/11/23 05:28 Glucose 95 mg/dL (65-99) 01/11/23 05:28 Lactic Acid 0.4 mmol/L (0.4-2.0) 01/06/23 14:20 Calcium 7.8 mg/dL (8.5-10.1) L 01/11/23 05:28 Corrected Calcium 9.2 mg/dL (8.5-10.1) 01/09/23 04:28 Total Bilirubin 0.20 mg/dL (0.2-1.0) 01/09/23 04:28 AST 12 Units/L (15-37) L 01/09/23 04:28 ALT 13 Units/L (12-78) 01/09/23 04:28 Alkaline Phosphatase 49 Units/L (46-116) 01/09/23 04:28 Creatine Kinase 61 Units/L (26-192) 01/06/23 14:20 Troponin I High Sens 22.7 ng/L (4.0-60.0) 01/06/23 14:20 B-Natriuretic Peptide 321 pg/mL (0-79) H 01/11/23 05:28 Total Protein 5.4 g/dL (6.4-8.2) L 01/09/23 04:28 Albumin 2.3 g/dL (3.4-5.0) L 01/09/23 04:28 Globulin 3.1 g/dL (2.5-4.5) 01/09/23 04:28 Albumin/Globulin Ratio 0.7 Ratio (1.1-2.1) L 01/09/23 04:28 Specimen Type Catherized urine 01/06/23 14:44 Urine Color Pale yellow (YELLOW) 01/06/23 14:44 Urine Appearance Hazy (CLEAR) 01/06/23 14:44 Urine pH 6.0 (5.0 - 8.0) 01/06/23 14:44 Ur Specific [place] 1.015 (1.000-1.030) 01/06/23 14:44 Urine Protein 2+ (NEGATIVE) 01/06/23 14:44 Urine Glucose (UA) Negative (NEGATIVE) 01/06/23 14:44 Urine Ketones Negative (NEGATIVE) 01/06/23 14:44 Urine Blood 1+ (NEGATIVE) 01/06/23 14:44 Urine Nitrite Negative (NEGATIVE) 01/06/23 14:44 Urine Bilirubin Negative (NEGATIVE) 01/06/23 14:44 Urine Urobilinogen Normal (NORMAL) 01/06/23 14:44 Ur Leukocyte Esterase 2+ (NEGATIVE) 01/06/23 14:44 Urine RBC None seen /HPF (0-3) 01/06/23 14:44 Urine WBC 5-10 /HPF (0-5) A 01/06/23 14:44 Ur Squamous Epith Cells Negative /HPF (NEGATIVE) 01/06/23 14:44 Urine Bacteria 2+ /HPF (NEGATIVE) 01/06/23 14:44 Ur Culture Indicated? Yes/culture set up 01/06/23 14:44 Stl Occult Blood (IFOB) Positive (NEGATIVE) A 01/08/23 03:18 SARS-CoV-2 (PCR) Negative (NEGATIVE) 01/07/23 11:23 Influenza Type A (PCR) Negative (NEGATIVE) 01/07/23 11:23 Influenza Type B (PCR) Negative (NEGATIVE) 01/07/23 11:23 RSV (PCR) Negative (NEGATIVE) 01/07/23 11:23 Plan (1) Bronchopneumonia: Status: Acute Plan: SUPPLEMENTAL OXYGEN, D5W AT 20 ML/HR, ROCEPHIN 1G IV DAILY, MUPIROCIN OINTMENT DAILY, ALBUTEROL NEBS QID PRN, PULMICORT NEBS BID. HER HOME MEDICATIONS OF AMIODARONE, ATORVASTATIN, CLOPIDOGREL, DONEPEZIL, FAMOTIDINE, GABAPENTIN, VISTARIL, SYNTHROID, SINGULAIR, PANTOPRAZOLE, REQUIP, AND VENLAFAXINE WERE RESUMED. (2) Cellulitis of left elbow: Status: Acute (3) Hypotension: Status: Acute Qualifiers: Hypotension type: unspecified hypotension type Qualified Code(s): I95.9 - Hypotension, unspecified (4) UTI (urinary tract infection): Status: Acute Qualifiers: Hematuria presence: without hematuria Urinary tract infection type: acute cystitis Qualified Code(s): N30.00 - Acute cystitis without hematuria (5) Chronic renal insufficiency: Status: Acute Qualifiers: Chronic kidney disease stage: stage 2 (mild) Qualified Code(s): N18.2 - Chronic kidney disease, stage 2 (mild) (6) Dehydration: Status: Acute (7) Anemia: Status: Suspected Qualifiers: Anemia type: iron deficiency Iron deficiency anemia type: unspecified iron deficiency Qualified Code(s): D50.9 - Iron deficiency anemia, unspecified Plan: GI CONSULT, RESUME HEMOCYTE PLUS
[2023-01-12] MEDS: PULMICORT NEB TX 0.5 MG NEB SCH ×2 (09:37→20:48)
[2023-01-12] MEDS: PROVENTIL NEB TX 0.083% 2.5MG/ 3ML NEB SCH ×4 (09:37→20:48)
[2023-01-12] MEDS: BACTROBAN TOPICAL OINT TOP SCH (09:57)
[2023-01-12] MEDS: ARICEPT TAB 10 MG PO SCH (09:57)
[2023-01-12] MEDS: CORDARONE TAB 200 MG PO SCH (09:57)
[2023-01-12] MEDS: COREG TAB 3.125 MG PO SCH ×2 (09:57→21:18)
[2023-01-12] MEDS: EFFEXOR TAB 75 MG (BID DOSING) PO SCH (09:58)
[2023-01-12] MEDS: LIPITOR TAB 40 MG PO SCH (09:58)
[2023-01-12] MEDS: HEMOCYTE-PLUS PO SCH (09:58)
[2023-01-12] MEDS: PEPCID TAB 20 MG PO SCH ×2 (09:59→21:18)
[2023-01-12] MEDS: PROTONIX TAB 40 MG PO SCH ×2 (09:59→21:18)
[2023-01-12] MEDS: NEURONTIN CAP 100 MG PO SCH ×2 (09:59→21:18)
[2023-01-12] MEDS: SINGULAIR TAB 10 MG PO SCH (10:08)
[2023-01-12] MEDS: ROCEPHIN VIAL 1 GRAM 1 G in NS 100 ML IV 100 ML IV SCH (10:08)
[2023-01-12] MEDS: SYNTHROID 25 mcg TAB PO SCH (10:10)
[2023-01-12] MEDS ORDERED: NS 500 ML IV 500 ML IV ONE (12:53)
[2023-01-12] MEDS ORDERED: DIPRIVAN VIAL 20 ML ONE (13:01)
[2023-01-12] MEDS: PLAVIX PO SCH (21:18)
[2023-01-13] MEDS: PROVENTIL NEB TX 0.083% 2.5MG/ 3ML NEB SCH ×2 (04:00→08:39)
[2023-01-13] MEDS: REQUIP PO SCH (05:25)
--- NOTE | 2023-01-13 08:05 | PCM.PROG ---
Progress Note Progress Note for Day of Date of Exam: 01/12/23 Subjective Subjective: PT IS A 87 YEAR OLD FEMALE ADMITTED FOR BRONCHOPNEUMONIA, CELLULITIS OF LEFT ELBOW, UTI, ANEMIA, DEHYDRATION, AND ACUTE ON CHRONIC RENAL INSUFFICIENCY. SHE HAS A PMH OF IRON DEFICIENCY ANEMIA, GASTRIC ANTRAL VASCULAR ECTASIA SYNDROME, ARTHRITIS, ASTHMA, CHF, COPD, CAD, DYSLIPIDEMIA, GERD, HTN, MS, CORONARY STENTS, CHOLECYSTECTOMY, HYSTERECTOMY, AND TONSILLECTOMY. SHE IS RESTING IN BED THIS MORNING. SHE HAS BEEN NPO SINCE MIDNIGHT AND HAS EGD SCHEDULED THIS MORNING FOR EVALUATION OF ANEMIA. SHE IS CURRENTLY UTILIZING OXYGEN VIA NASAL CANNULA AT 2 LPM WHICH IS AT BASELINE. STOOL WAS POSITIVE FOR OCCULT BLOOD. URINE CULTURE WAS POSITIVE FOR GROWTH OF E.COLI. BLOOD CULTURES ARE NO GROWTH TO DATE. CHEST XRAY WAS OBTAINED THIS MORNING AND REVEALED: NO ACUTE FINDINGS. SHE IS CURRENTLY RECEIVING D5W AT 50 ML/HR, ROCEPHIN 1G IV DAILY, MUPIROCIN OINTMENT DAILY, ALBUTEROL NEBS QID PRN, PULMICORT NEBS BID. HER HOME MEDICATIONS OF AMIODARONE, ATORVASTATIN, CLOPIDOGREL, DONEPEZIL, FAMOTIDINE , GABAPENTIN, VISTARIL, SYNTHROID, SINGULAIR, PANTOPRAZOLE, REQUIP, AND VENLAFAXINE WERE RESUMED.CONTINUE WITH CURRENT PLAN OF CARE TODAY. HER HEMOGLOBIN HAS STABILIZED AFTER 1 UNIT OF PACKED RED BLOOD CELLS. OTHERWISE, WE WILL FOLLOW UP WITH AM LABS AND 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. Past Medical Family Social History Past Med/Fam/Surg Hx: No changes since H&P Allergies: Allergies levofloxacin [From Levaquin] Allergy (Unknown, Verified 01/06/23 19:38) Onset Date: 05/04/2018 Review of Systems ROS changes noted: SEE HPI Vital Signs and I&O's Vital Signs: Vital Signs Temperature 99.2 F Pulse Rate [Left] 72 Pulse Rate 82 Respiratory Rate 18 Blood Pressure [Left Arm] 156/69 O2 Sat by Pulse Oximetry 94 O2 Sat by Pulse Oximetry 95 Intake and Output: Intake & Output 01/10/23 01/11/23 01/12/23 01/13/23 23:59 23:59 23:59 23:59 Intake Total 1579 / 1579 1769 / 1769 371 / 371 130 / 130 Balance 1579 / 1579 1769 / 1769 371 / 371 130 / 130 Physical Exam Oriented: Normal; negative Time, Person, Place, Not Oriented, Unable to test or Other Eyes: Normal; negative Blurred Vision, Diplopia, Discharge, Pain, Redness, Photo phobia or Other Ear: Normal; negative Right, Left, Swelling, Ecchymosis, Hemotypanum, Abrasion or Laceration Nose: negative Normal, Injected, Discharge, Blood or Other Throat: negative Normal, Tonsillar Hypertrophy, Red, Exudate, Dry or Other Respiratory: Generalized and Wheezes Cardiovascular: Normal; negative Tachycardia, Bradycardia, Irregular, S3, S4, Systolic, Diastolic, Murmur, Edema or Other : negative Normal, Dysuria, Hematuria, Frequency, Discharge, Testicular Pain, Bleeding, or Other Auscultation: Bowel Sounds: Normal; negative Bruit, Absent, Increased, Decreased, High Pitched or Other Tenderness: Normal; negative Diffuse, RUQ, RLQ, LUQ, LLQ, Epigastric, Periumbilical, Suprapubic, Mild, Moderate, Severe, Rebound, Guarding, Rigidity or Other Skin: Normal; negative Decreased Turgur, Rash, Papular, Macular, Maculopapular, Vesicular, Pustular, Petechial, Red, Tender, Hot, Diaphoresis, Wound, Bruising, Ecchymosis or Other Musculoskeletal: Normal; negative Right, Left, Shoulder, Clavicle, Arm, Elbow, Forearm, Wrist, Hand, Hip, Thigh, Knee, Leg, Ankle, Foot, Back:Thoracic, Back:Lumbar, Back:Midline, Back:Paraspinous, Pelvis, Swelling, Tender, Deformity, Pulse Deficit, Motor Deficit, Sensory Deficit, Instability or Crepitance Psychiatric: Normal; negative Anxiety, Depression, Agitation or Other Mood Description: Calm; negative Angry, Apathetic, Depressed, Fearful, Flat, Happy, Hostile, Sad, Suspicious, Withdrawn, Anxious, Appropriate or Labile Affect: Normal; negative Angry, Anxious, Depressed, Flat, Hysterical, Quiet or Violent Speech Pattern: Clear and Appropriate Laboratory and Diagnostics Result Diagrams: 01/12/23 05:36 01/12/23 05:36 Labs: 01/06/23 14:35 Blood Blood Culture - Final 01/06/23 14:20 Blood Blood Culture - Final 01/06/23 14:44 Urine,Catheterized Urine Culture - Final Escherichia Coli Laboratory WBC 7.0 X10^3/uL (3.6-10.0) 01/12/23 05:36 RBC 3.06 X10^6/uL (3.5-5.4) L 01/12/23 05:36 Hgb 8.6 g/dL (12.0-16.0) L 01/12/23 05:36 Hct 25.4 % (36.0-47.0) L 01/12/23 05:36 MCV 83.0 fL (80.0-100.0) 01/12/23 05:36 MCH 28.3 pg (27.0-34.0) 01/12/23 05:36 MCHC 34.1 g/dL (33.0-35.0) 01/12/23 05:36 RDW 15.7 % (11.6-16.5) 01/12/23 05:36 Plt Count 240 X10^3/uL (150.0-450.0) 01/12/23 05:36 MPV 8.5 fL (7.4-11.0) 01/12/23 05:36 Neut % (Auto) 57.8 % (42.0-75.0) 01/12/23 05:36 Lymph % (Auto) 21.9 % (21.0-51.0) 01/12/23 05:36 [place] % (Auto) 16.4 % (0.0-13.0) H 01/12/23 05:36 Eos % (Auto) 2.6 % (0.9-2.9) 01/12/23 05:36 Baso % (Auto) 1.3 % (0.2-1.0) H 01/12/23 05:36 Neut # (Auto) 4.0 x10^3/uL (2.2-4.8) 01/12/23 05:36 Lymph # (Auto) 1.5 X10^3/uL (1.3-2.9) 01/12/23 05:36 [place] # (Auto) 1.1 x10^3/uL (0.3-0.8) H 01/12/23 05:36 Eos # (Auto) 0.2 x10^3/uL (0.0-0.2) 01/12/23 05:36 Baso # (Auto) 0.1 X10^3/uL (0.0-0.1) 01/12/23 05:36 Absolute Nucleated RBC 0.1 /100WBC 01/12/23 05:36 D-Dimer 0.73 ug/ml (0.0-0.57) H 01/06/23 14:35 Sodium 143 mmol/L (136-145) 01/12/23 05:36 Corrected Sodium TNP 01/12/23 05:36 Potassium 4.1 mmol/L (3.5-5.1) 01/12/23 05:36 Chloride 109 mmol/L (98-107) H 01/12/23 05:36 Carbon Dioxide 28.1 mmol/L (21-32) 01/12/23 05:36 BUN 17 mg/dL (7-18) 01/12/23 05:36 Creatinine 1.09 mg/dL (0.55-1.02) H 01/12/23 05:36 Est GFR (MDRD) Af Amer > 60 (>60) 01/12/23 05:36 Est GFR (MDRD) Non-Af 51 (>60) L 01/12/23 05:36 Glucose 98 mg/dL (65-99) 01/12/23 05:36 Lactic Acid 0.4 mmol/L (0.4-2.0) 01/06/23 14:20 Calcium 7.8 mg/dL (8.5-10.1) L 01/12/23 05:36 Corrected Calcium 9.3 mg/dL (8.5-10.1) 01/12/23 05:36 Total Bilirubin 0.20 mg/dL (0.2-1.0) 01/12/23 05:36 AST 16 Units/L (15-37) 01/12/23 05:36 ALT 12 Units/L (12-78) 01/12/23 05:36 Alkaline Phosphatase 43 Units/L (46-116) L 01/12/23 05:36 Creatine Kinase 61 Units/L (26-192) 01/06/23 14:20 Troponin I High Sens 22.7 ng/L (4.0-60.0) 01/06/23 14:20 B-Natriuretic Peptide 585 pg/mL (0-79) H* 01/12/23 05:36 Total Protein 5.5 g/dL (6.4-8.2) L 01/12/23 05:36 Albumin 2.1 g/dL (3.4-5.0) L 01/12/23 05:36 Globulin 3.4 g/dL (2.5-4.5) 01/12/23 05:36 Albumin/Globulin Ratio 0.6 Ratio (1.1-2.1) L 01/12/23 05:36 Specimen Type Catherized urine 01/06/23 14:44 Urine Color Pale yellow (YELLOW) 01/06/23 14:44 Urine Appearance Hazy (CLEAR) 01/06/23 14:44 Urine pH 6.0 (5.0 - 8.0) 01/06/23 14:44 Ur Specific [place] 1.015 (1.000-1.030) 01/06/23 14:44 Urine Protein 2+ (NEGATIVE) 01/06/23 14:44 Urine Glucose (UA) Negative (NEGATIVE) 01/06/23 14:44 Urine Ketones Negative (NEGATIVE) 01/06/23 14:44 Urine Blood 1+ (NEGATIVE) 01/06/23 14:44 Urine Nitrite Negative (NEGATIVE) 01/06/23 14:44 Urine Bilirubin Negative (NEGATIVE) 01/06/23 14:44 Urine Urobilinogen Normal (NORMAL) 01/06/23 14:44 Ur Leukocyte Esterase 2+ (NEGATIVE) 01/06/23 14:44 Urine RBC None seen /HPF (0-3) 01/06/23 14:44 Urine WBC 5-10 /HPF (0-5) A 01/06/23 14:44 Ur Squamous Epith Cells Negative /HPF (NEGATIVE) 01/06/23 14:44 Urine Bacteria 2+ /HPF (NEGATIVE) 01/06/23 14:44 Ur Culture Indicated? Yes/culture set up 01/06/23 14:44 Stl Occult Blood (IFOB) Positive (NEGATIVE) A 01/08/23 03:18 SARS-CoV-2 (PCR) Negative (NEGATIVE) 01/07/23 11:23 Influenza Type A (PCR) Negative (NEGATIVE) 01/07/23 11:23 Influenza Type B (PCR) Negative (NEGATIVE) 01/07/23 11:23 RSV (PCR) Negative (NEGATIVE) 07/01/23 11:23 Resp Viral Panel (PCR) See scanned report 01/09/23 16:56 Blood Type A POSITIVE 01/11/23 08:46 Antibody Screen Negative 01/11/23 08:46 Crossmatch See Detail 01/11/23 08:46 Plan (1) Bronchopneumonia: Status: Acute Plan: SUPPLEMENTAL OXYGEN, D5W AT 20 ML/HR, ROCEPHIN 1G IV DAILY, MUPIROCIN OINTMENT DAILY, ALBUTEROL NEBS QID PRN, PULMICORT NEBS BID. HER HOME MEDICATIONS OF AMIODARONE, ATORVASTATIN, CLOPIDOGREL, DONEPEZIL, FAMOTIDINE, GABAPENTIN, VISTARIL, SYNTHROID, SINGULAIR, PANTOPRAZOLE, REQUIP, AND VENLAFA XINE WERE RESUMED. (2) Cellulitis of left elbow: Status: Acute (3) Hypotension: Status: Acute Qualifiers: Hypotension type: unspecified hypotension type Qualified Code(s): I95.9 - Hypotension, unspecified (4) UTI (urinary tract infection): Status: Acute Qualifiers: Hematuria presence: without hematuria Urinary tract infection type: acute cystitis Qualified Code(s): N30.00 - Acute cystitis without hematuria (5) Chronic renal insufficiency: Status: Acute Qualifiers: Chronic kidney disease stage: stage 2 (mild) Qualified Code(s): N18.2 - Chronic kidney disease, stage 2 (mild) (6) Dehydration: Status: Acute (7) Anemia: Status: Suspected Qualifiers: Anemia type: iron deficiency Iron deficiency anemia type: unspecified iron deficiency Qualified Code(s): D50.9 - Iron deficiency anemia, unspecified Plan: GI CONSULT, RESUME HEMOCYTE PLUS
[2023-01-13] MEDS: PULMICORT NEB TX 0.5 MG NEB SCH (08:39)
[2023-01-13 09:31] VITALS: O2SAT 98
[2023-01-13] MEDS: D5W 1,000 ML IV 1,000 ML IV SCH (09:56)
[2023-01-13] MEDS: ROCEPHIN VIAL 1 GRAM 1 G in NS 100 ML IV 100 ML IV SCH ×2 (09:58→12:35)
[2023-01-13] MEDS: PEPCID TAB 20 MG PO SCH (09:59)
[2023-01-13] MEDS: SINGULAIR TAB 10 MG PO SCH (09:59)
[2023-01-13] MEDS: SYNTHROID 25 mcg TAB PO SCH (09:59)
[2023-01-13] MEDS: ARICEPT TAB 10 MG PO SCH (09:59)
[2023-01-13] MEDS: NEURONTIN CAP 100 MG PO SCH (10:00)
[2023-01-13] MEDS: EFFEXOR TAB 75 MG (BID DOSING) PO SCH (10:00)
[2023-01-13] MEDS: CORDARONE TAB 200 MG PO SCH (10:00)
[2023-01-13] MEDS: COREG TAB 3.125 MG PO SCH (10:01)
[2023-01-13] MEDS: PROTONIX TAB 40 MG PO SCH (10:01)
[2023-01-13] MEDS: LIPITOR TAB 40 MG PO SCH (10:01)
[2023-01-13] MEDS: HEMOCYTE-PLUS PO SCH (10:01)
[2023-01-13] MEDS: BACTROBAN TOPICAL OINT TOP SCH (10:09)
[2023-01-13 12:29] VITALS: BP 149/67; PULSE 72; RESP 20; TEMP 97.4
== END 2023-01-13 11:30 | disposition home health service (06) | DRG 193 ==
LOC: ER 13:46 → MED/SURG 13:46
PROVIDERS: ADMIT Family Medicine; ATTEND Family Medicine

== ENCOUNTER 2023-01-13 23:15 | Observation (INO) ==
--- NOTE | 2023-01-13 23:22 | DR.SOBA ---
HPI Time Seen Time Seen by Provider: 01/13/23 23:21 Complaints Chief Complaint Doctors Comments: SHORTNESS OF BREATH . WAS DISCHARGED FROM THE HOSPITAL TODAY FOR SAME SYMPTOMS.TRETED FOR ANEMIA,BRONCHIAL PNEUMONIA AND COPD. PMH PMH Past Medical History: Anemia, Arthritis, Asthma, CHF, COPD, Coronary Artery Disease, Dyslipidemia, GERD, Hypertension and CO Past Surgical History: Yes Surgical History: Angioplasty/Stents, Cholecystectomy, Hysterectomy, Tonsillectomy and Other Family History Family Medical History: Diabetes Mellitus, Cancer, CO, Coronary Artery Disease, Sudden Cardiac and Hypertension Social History Do you use any recreational Drugs:: No ROS Review of Systems Constitutional: Other (SHORTNESS OF BREATH) Eyes: No Symptoms Reported ENTM: No Symptoms Reported Respiratoy: Short of Breath Cardiovascular: No Symptoms Reported Gastrointestinal/Abdominal: No Symptoms Reported Genitourinary: No Symptoms Reported Neurological: No Symptoms Reported Musculoskeletal: No Symptoms Reported Integumentary: No Symptoms Reported Hematologic/Lymphatic: No Symptoms Reported Endocrine: No Symptoms Reported Psychiatric: No Symptoms Reported PE Vital Signs Vitals: Vital Signs Temperature 97.9 F Pulse Rate 82 Pulse Rate 91 Pulse Rate 96 Pulse Rate 96 Pulse Rate 92 Respiratory Rate 26 Blood Pressure 127/58 Blood Pressure 121/105 O2 Sat by Pulse Oximetry 93 O2 Sat by Pulse Oximetry 96 O2 Sat by Pulse Oximetry 93 O2 Sat by Pulse Oximetry 93 O2 Sat by Pulse Oximetry 93 O2 Sat by Pulse Oximetry 96 General Limitations: Physical Limitation (DUE TO SOB AND CHRONIC ANEMIA) General Appearance: In Distress (MODERATE DISTRESS) Head Head Exam: Normal Inspection Eyes Eye exam: Normal Appearance ENT ENT Exam: Normal Exam and Normal Oropharynx Neck Neck Exam: Normal Inspection Chest Chest Inspection: Normal Inspection Respiratory Respiratory Exam: Prolonged Expiratory Phase and Respiratory Distress Cardiovascular Cardiovascular Exam: Normal Rhythm Abdominal Exam Abdominal Exam: Normal Inspection and Normal Bowel Sounds Extremities Extremities Exam: Normal Inspection Back Back Exam: Normal Inspection and Full ROM Neurologic Neurological Exam: Other (LETHARGIC) MDM Differential Diagnosis Differential Diagnosis: COPD, URI and Other (COPD) Differential Diagnosis Comment:: CHF COURSE Treatment Treatment: PATIENT REMAINED RELTIVELY STABLE DURING ER EVALUATION. WAS GIVEN A DUONEB AND SOLUMEDROL 125MG IV. WAS GIVEN LASIX 40MG IV IN ER. ABG WAS NOT TOO OUT OF RANGE FOR H/O COPD. CHEST XRAY HAD NO SIGNIFICANT INTERVAL ACUTE CORDIOPULMONARY CHANGE.WILL CONSULT WITH MEDICAL STAFF PHYSICIAN PHYSICIAN FOR OBSERVATION FOR MILD CHF AND COPD EXACERBATION. SPOKE TO DR LILLY AT 0045 AND HE ACCEPTED THE PAT IENT TO OBSERVATION FOR CHF AND COPD EXACERBATION. ROR Labs Reviewed Laboratory Results Reviewed?: Yes Result Diagrams: 01/13/23 23:40 01/13/23 23:40 Laboratory: WBC 11.0 X10^3/uL (3.6-10.0) H 01/13/23 23:40 RBC 3.70 X10^6/uL (3.5-5.4) 01/13/23 23:40 Hgb 10.5 g/dL (12.0-16.0) L 01/13/23 23:40 Hct 31.4 % (36.0-47.0) L 01/13/23 23:40 MCV 84.9 fL (80.0-100.0) 01/13/23 23:40 MCH 28.3 pg (27.0-34.0) 01/13/23 23:40 MCHC 33.3 g/dL (33.0-35.0) 01/13/23 23:40 RDW 15.5 % (11.6-16.5) 01/13/23 23:40 Plt Count 360 X10^3/uL (150.0-450.0) 01/13/23 23:40 MPV 8.5 fL (7.4-11.0) 01/13/23 23:40 Neut % (Auto) 70.3 % (42.0-75.0) 01/13/23 23:40 Lymph % (Auto) 14.9 % (21.0-51.0) L 01/13/23 23:40 [place] % (Auto) 12.2 % (0.0-13.0) 01/13/23 23:40 Eos % (Auto) 2.0 % (0.9-2.9) 01/13/23 23:40 Baso % (Auto) 0.6 % (0.2-1.0) 01/13/23 23:40 Neut # (Auto) 7.7 x10^3/uL (2.2-4.8) H 01/13/23 23:40 Lymph # (Auto) 1.6 X10^3/uL (1.3-2.9) 01/13/23 23:40 [place] # (Auto) 1.3 x10^3/uL (0.3-0.8) H 01/13/23 23:40 Eos # (Auto) 0.2 x10^3/uL (0.0-0.2) 01/13/23 23:40 Baso # (Auto) 0.1 X10^3/uL (0.0-0.1) 01/13/23 23:40 Absolute Nucleated RBC 0.1 /100WBC 01/13/23 23:40 Sample Site Lr 01/13/23 23:25 ABG pH 7.330 (7.35-7.45) L 01/13/23 23:25 ABG pCO2 52.0 mmHg (35.0-45.0) H* 01/13/23 23:25 ABG pO2 92.0 mmHg (80.0-100.0) 01/13/23 23:25 ABG HCO3 27.4 mmol/L (22-26) H 01/13/23 23:25 ABG O2 Saturation 97.0 % (90-100) 01/13/23 23:25 ABG Base Excess 0.7 mmol/L (-2.0-2.0) 01/13/23 23:25 Jeff Test Pos 01/13/23 23:25 A-a Gradient 71.0 mmHg 01/13/23 23:25 FiO2 32.0 01/13/23 23:25 Blood Gas Comments Shanna well sw 01/13/23 23:25 Sodium 143 mmol/L (136-145) 01/13/23 23:40 Corrected Sodium 146 mmol/L (136-145) H 01/13/23 23:40 Potassium 4.5 mmol/L (3.5-5.1) 01/13/23 23:40 Chloride 105 mmol/L (98-107) 01/13/23 23:40 Carbon Dioxide 29.4 mmol/L (21-32) 01/13/23 23:40 BUN 15 mg/dL (7-18) 01/13/23 23:40 Creatinine 1.28 mg/dL (0.55-1.02) H 01/13/23 23:40 Est GFR (MDRD) Af Amer 51 (>60) L 01/13/23 23:40 Est GFR (MDRD) Non-Af 42 (>60) L 01/13/23 23:40 Glucose 223 mg/dL (65-99) H 01/13/23 23:40 Calcium 8.2 mg/dL (8.5-10.1) L 01/13/23 23:40 Corrected Calcium 9.2 mg/dL (8.5-10.1) 01/13/23 23:40 Total Bilirubin 0.40 mg/dL (0.2-1.0) 01/13/23 23:40 AST 19 Units/L (15-37) 01/13/23 23:40 ALT 17 Units/L (12-78) 01/13/23 23:40 Alkaline Phosphatase 62 Units/L (46-116) 01/13/23 23:40 Creatine Kinase 57 Units/L (26-192) 01/13/23 23:40 Troponin I High Sens 46.3 ng/L (4.0-60.0) 01/13/23 23:40 B-Natriuretic Peptide 1430 pg/mL (0-79) H* 01/13/23 23:40 Total Protein 6.6 g/dL (6.4-8.2) 01/13/23 23:40 Albumin 2.7 g/dL (3.4-5.0) L 01/13/23 23:40 Globulin 3.9 g/dL (2.5-4.5) 01/13/23 23:40 Albumin/Globulin Ratio 0.7 Ratio (1.1-2.1) L 01/13/23 23:40 Specimen Type Catherized urine 01/14/23 00:38 Urine Color Yellow (YELLOW) 01/14/23 00:38 Urine Appearance Clear (CLEAR) 01/14/23 00:38 Urine pH 5.0 (5.0 - 8.0) 01/14/23 00:38 Ur Specific [place] 1.020 (1.000-1.030) 01/14/23 00:38 Urine Protein 4+ (NEGATIVE) 01/14/23 00:38 Urine Glucose (UA) Negative (NEGATIVE) 01/14/23 00:38 Urine Ketones Negative (NEGATIVE) 01/14/23 00:38 Urine Blood 1+ (NEGATIVE) 01/14/23 00:38 Urine Nitrite Negative (NEGATIVE) 01/14/23 00:38 Urine Bilirubin Negative (NEGATIVE) 01/14/23 00:38 Urine Urobilinogen Normal (NORMAL) 01/14/23 00:38 Ur Leukocyte Esterase Negative (NEGATIVE) 01/14/23 00:38 Urine RBC 0-2 /HPF (0-3) 01/14/23 00:38 Urine WBC 0-2 /HPF (0-5) 01/14/23 00:38 Ur Squamous Epith Cells Rare /HPF (NEGATIVE) 01/14/23 00:38 Ur Transition Epith Cell Few /HPF (NEGATIVE) 01/14/23 00:38 Urine Bacteria Trace /HPF (NEGATIVE) 01/14/23 00:38 Hyaline Casts Moderate /LPF (NEGATIVE) 01/14/23 00:38 Urine Mucus Few /HPF (NEGATIVE) 01/14/23 00:38 Ur Culture Indicated? No/not indicated 01/14/23 00:38 Opioid Opioid Risk Tool Age (Michael box if 16-45): No History of Preadolescent Sexual Abuse: No Total: 0 Total Score Risk Category: Low Risk Copyright: Cornell SEGOVIA predicting aberrant behaviors Discharge Plan Diagnosis Discharge Problem: CHF (congestive heart failure), COPD exacerbation Discharge Plan Patient Disposition: ADMITTED INPATIENT Condition: Stable Orders to Discharge Patient Discharge Orders: Transfer (Routine); Ordered 01/14/23 Ordered By: Tad Joe
[2023-01-13 23:29] VITALS: BMI 27.9
[2023-01-13] MEDS ORDERED: SOLU-Medrol 125 MG VIAL IVP ONE (23:39)
[2023-01-13] MEDS ORDERED: SOLU-Medrol 125 MG VIAL ONE (23:40)
[2023-01-13] MEDS ORDERED: DUONEB 0.5 MG/3 MG (3 mL) NEB ONE ×2 (23:44→23:47)
--- NOTE | 2023-01-13 23:50 | RAD ---
HISTORYSOBSTUDYCHEST, 1 VIEWCOMPARISONJuly 2022TECHNIQUEChest radiographic imaging, AP portable projection, 1 imageFINDINGSNo cardiomegaly. Mild diffuse increased interstitial markings.Surgical clips in the left axilla.No focal airspace disease.No pleural effusion.No pneumothorax.No acute osseous abnormality.IMPRESSIONNo significant interval acute cardiopulmonary changes.Electronically signed by: Shahbaz Sam (Jan 13, 2023 23:48:21)
[2023-01-13 23:51] LABS: BASOPHILS # (AUTO) 0.1 X10^3/uL (0.0-0.1); BASOPHILS % (AUTO) 0.6 % (0.2-1.0); EOSINOPHILS # (AUTO) 0.2 x10^3/uL (0.0-0.2); HEMATOCRIT 31.4 % (36.0-47.0); HEMOGLOBIN 10.5 g/dL (12.0-16.0); LYMPHOCYTES # (AUTO) 1.6 X10^3/uL (1.3-2.9); LYMPHOCYTES % (AUTO) 14.9 % (21.0-51.0); MEAN CORPUSCULAR HEMOGLOBIN 28.3 pg (27.0-34.0); MEAN CORPUSCULAR HGB CONC 33.3 g/dL (33.0-35.0); MEAN CORPUSCULAR VOLUME 84.9 fL (80.0-100.0); MEAN PLATELET VOLUME 8.5 fL (7.4-11.0); MONOCYTES # (AUTO) 1.3 x10^3/uL (0.3-0.8); MONOCYTES % (AUTO) 12.2 % (0.0-13.0); NEUTROPHILS # (AUTO) 7.7 x10^3/uL (2.2-4.8); NEUTROPHILS % (AUTO) 70.3 % (42.0-75.0); PLATELET COUNT 360 X10^3/uL (150.0-450.0); RED CELL DISTRIBUTION WIDTH 15.5 % (11.6-16.5)
[2023-01-13 23:53] LABS: ABG BASE EXCESS 0.7 mmol/L (-2.0-2.0); ABG HCO3 27.4 mmol/L (22-26)
[2023-01-13 23:54] LABS: ABG ALLEN TEST POS
[2023-01-14 00:04] LABS: ALBUMIN 2.7 g/dL (3.4-5.0); CALCIUM 8.2 mg/dL (8.5-10.1); CARBON DIOXIDE 29.4 mmol/L (21-32); COR CA(FOR HYPOALB) 9.2 mg/dL (8.5-10.1); CREATININE 1.28 mg/dL (0.55-1.02); POTASSIUM 4.5 mmol/L (3.5-5.1); TOTAL PROTEIN 6.6 g/dL (6.4-8.2)
[2023-01-14] MEDS ORDERED: LASIX IVP ONE ×2 (00:18→00:36)
[2023-01-14 00:44] LABS: BILIRUBIN,URINE NEGATIVE (NEGATIVE); BLOOD/HEMOGLOBIN,URINE 1+ (NEGATIVE); GLUCOSE, URINE NEGATIVE (NEGATIVE); KETONES,URINE NEGATIVE (NEGATIVE); LEUKOCYTE ESTERASE ,URINE NEGATIVE (NEGATIVE); NITRITES,URINE NEGATIVE (NEGATIVE); PROTEIN,URINE 4+ (NEGATIVE); UROBILINOGEN,URINE NORMAL (NORMAL)
[2023-01-14 00:52] LABS: APPEARANCE,URINE CLEAR (CLEAR); BACTERIA,URINE TRACE /HPF (NEGATIVE); COLOR,URINE YELLOW (YELLOW); HYALINE CASTS, URINE MODERATE /LPF (NEGATIVE); RBC,URINE 0-2 /HPF (0-3); SQUAMOUS EPITHELIAL CELL,UR RARE /HPF (NEGATIVE); TRANSITIONAL EPI CELLS,URINE FEW /HPF (NEGATIVE)
--- NOTE | 2023-01-14 01:13 | EKG ---
Test Reason : SOB Blood Pressure : */* mmHG Vent. Rate : 75 BPM Atrial Rate : 75 BPM P-R Int : 190 ms QRS Dur : 92 ms QT Int : 444 ms P-R-T Axes : 55 23 78 degrees QTc Int : 495 ms Normal sinus rhythm Nonspecific ST abnormality Prolonged QT Abnormal ECG When compared with ECG of 06-JAN-2023 14:09, Criteria for Septal infarct are no longer present Confirmed by Manolo Hodge ([id number]) on 01/15/2023 1:54:14 PM Referred By: Confirmed By: Manolo Hodge
[2023-01-14] MEDS: SOLU-Medrol 40 MG VIAL IVP SCH ×3 (05:57→22:32)
[2023-01-14] MEDS: DUONEB 0.5 MG/3 MG (3 mL) NEB SCH ×4 (06:00→18:13)
[2023-01-14 06:32] LABS: BASOPHILS % (AUTO) 0.3 % (0.2-1.0); EOSINOPHILS % (AUTO) 0.1 % (0.9-2.9); HEMATOCRIT 29.1 % (36.0-47.0); HEMOGLOBIN 9.9 g/dL (12.0-16.0); LYMPHOCYTES # (AUTO) 0.5 X10^3/uL (1.3-2.9); LYMPHOCYTES % (AUTO) 5.6 % (21.0-51.0); MEAN CORPUSCULAR HEMOGLOBIN 28.6 pg (27.0-34.0); MEAN CORPUSCULAR HGB CONC 33.9 g/dL (33.0-35.0); MEAN CORPUSCULAR VOLUME 84.2 fL (80.0-100.0); MEAN PLATELET VOLUME 8.5 fL (7.4-11.0); MONOCYTES # (AUTO) 0.3 x10^3/uL (0.3-0.8); MONOCYTES % (AUTO) 3.2 % (0.0-13.0); NEUTROPHILS # (AUTO) 7.4 x10^3/uL (2.2-4.8); NEUTROPHILS % (AUTO) 90.8 % (42.0-75.0); PLATELET COUNT 278 X10^3/uL (150.0-450.0); RED BLOOD COUNT 3.45 X10^6/uL (3.5-5.4); RED CELL DISTRIBUTION WIDTH 15.3 % (11.6-16.5); WHITE BLOOD COUNT 8.1 X10^3/uL (3.6-10.0)
[2023-01-14 06:44] LABS: ALBUMIN 2.5 g/dL (3.4-5.0); CALCIUM 8.5 mg/dL (8.5-10.1); CARBON DIOXIDE 27.6 mmol/L (21-32); COR CA(FOR HYPOALB) 9.7 mg/dL (8.5-10.1); CREATININE 1.21 mg/dL (0.55-1.02); POTASSIUM 4.5 mmol/L (3.5-5.1); TOTAL PROTEIN 6.2 g/dL (6.4-8.2)
[2023-01-14 07:43] LABS: BAND NEUTROPHILS % 2 % (0-10)
[2023-01-14 07:47] LABS: PLATELET MORPHOLOGY COMMENT NORMAL (NORMAL)
[2023-01-14] MEDS: PULMICORT NEB TX 0.5 MG NEB SCH ×2 (08:25→20:45)
[2023-01-14] MEDS: PEPCID TAB 40 MG PO SCH ×2 (09:20→20:48)
[2023-01-14] MEDS: SINGULAIR TAB 10 MG PO SCH (09:20)
[2023-01-14] MEDS: REQUIP PO SCH ×3 (09:20→22:32)
[2023-01-14] MEDS: PROTONIX TAB 40 MG PO SCH ×2 (09:20→20:47)
[2023-01-14] MEDS: LIPITOR TAB 40 MG PO SCH (09:20)
[2023-01-14] MEDS: LASIX IVP SCH ×2 (09:20→16:29)
[2023-01-14] MEDS: NEURONTIN CAP 100 MG PO SCH ×2 (09:21→20:48)
[2023-01-14] MEDS: CORDARONE TAB 200 MG PO SCH (09:21)
[2023-01-14] MEDS: COREG TAB 3.125 MG PO SCH ×2 (09:21→20:48)
[2023-01-14] MEDS: EFFEXOR TAB 75 MG (BID DOSING) PO SCH (09:22)
[2023-01-14] MEDS: SYNTHROID 25 mcg TAB PO SCH (09:22)
[2023-01-14] MEDS: ARICEPT TAB 10 MG PO SCH (09:22)
[2023-01-14] MEDS: ROCEPHIN VIAL 1 GRAM 1 G in NS 100 ML IV 100 ML IV SCH (11:56)
--- NOTE | 2023-01-14 12:05 | RAD ---
CHEST, 1 VIEWHISTORY: CHF, COPD EXACERBATIONStudy: Single view of the chest.Comparison:NoneFindings:The cardiomediastinal silhouette is normal.No focal consolidations, pleural effusions or pneumothorax. Osseous structures demonstrate no acute abnormality. Previously identified increased interstitial markings may have improved slightly.IMPRESSION:1. Probable mild improvement of pulmonary edema like pattern.Electronically signed by: MATTI HEWITT (Jan 14, 2023 12:04:33)
--- NOTE | 2023-01-14 16:17 | DR.H&P ---
H&P History & Physical for Day of: H&P Date: 01/14/23 Chief Complaint Chief Complaint: Shortness of breath Allergies Allergies Allergy/AdvReac Type Severity Reaction Status Date / Time levofloxacin [From Levaquin] Allergy Unknown Verified 01/06/23 19:38 History of Present Illness History of Present Illness: This is a pleasant 87-year-old white female who is a patient of Dr. Edd Alba. She was discharged yesterday from the hospital after being treated for COPD exacerbation/pneumonia and anemia. Last night she became more short of breath and was getting worse and got anxious and she was subsequently brought to the emergency department here in [facility]. ER physician reveals she has some moderate respiratory distress and saw on her BNP was elevated greater than 1000 which was 550 the day before. He started her on some IV Lasix to diurese her and this helped improve her much better along with supplemental O2. We went ahead and admitted her so we can diurese her with IV Lasix and titrate down her oxygen level to a SPO2 of greater than 93%. Past Medical History Past Medical History: Anemia, Arthritis, Asthma, CHF, COPD, Coronary Artery Disease, Dyslipidemia, GERD, Hypertension and [place] Additional Medical History: Breast and uterine cancer Past Surgical History Surgical History: Angioplasty/Stents, Cholecystectomy, Hysterectomy, Tonsillectomy and Other Family History Family Medical History: Diabetes Mellitus, Cancer, [place], Coronary Artery Disease, Sudden Cardiac and Hypertension Social History Does patient currently use any type of tobacco product: Yes Have you used tobacco products in the last 12 months: Yes Type of Tobacco Use: Cigarettes Alcohol Use: None Drug Use: None Medications Home Medications: Home Medications Medication Instructions Recorded Confirmed Type clopidogrel 75 mg tablet 75 mg PO HS 07/30/19 01/14/23 History pantoprazole 40 mg tablet,delayed 40 mg PO BID 01/06/23 01/14/23 History release Labs Result Diagrams: 01/14/23 05:15 01/14/23 05:15 Labs: Laboratory WBC 8.1 X10^3/uL (3.6-10.0) 01/14/23 05:15 RBC 3.45 X10^6/uL (3.5-5.4) L 01/14/23 05:15 Hgb 9.9 g/dL (12.0-16.0) L 01/14/23 05:15 Hct 29.1 % (36.0-47.0) L 01/14/23 05:15 MCV 84.2 fL (80.0-100.0) 01/14/23 05:15 MCH 28.6 pg (27.0-34.0) 01/14/23 05:15 MCHC 33.9 g/dL (33.0-35.0) 01/14/23 05:15 RDW 15.3 % (11.6-16.5) 01/14/23 05:15 Plt Count 278 X10^3/uL (150.0-450.0) 01/14/23 05:15 Plt Count Comment Adequate (ADEQUATE) 01/14/23 05:15 MPV 8.5 fL (7.4-11.0) 01/14/23 05:15 Neut % (Auto) 90.8 % (42.0-75.0) H 01/14/23 05:15 Lymph % (Auto) 5.6 % (21.0-51.0) L 01/14/23 05:15 [place] % (Auto) 3.2 % (0.0-13.0) 01/14/23 05:15 Eos % (Auto) 0.1 % (0.9-2.9) L 01/14/23 05:15 Baso % (Auto) 0.3 % (0.2-1.0) 01/14/23 05:15 Neut # (Auto) 7.4 x10^3/uL (2.2-4.8) H 01/14/23 05:15 Lymph # (Auto) 0.5 X10^3/uL (1.3-2.9) L 01/14/23 05:15 [place] # (Auto) 0.3 x10^3/uL (0.3-0.8) 01/14/23 05:15 Eos # (Auto) 0.0 x10^3/uL (0.0-0.2) 01/14/23 05:15 Baso # (Auto) 0.0 X10^3/uL (0.0-0.1) 01/14/23 05:15 Absolute Nucleated RBC 0.0 /100WBC 01/14/23 05:15 Total Counted 100 01/14/23 05:15 Neutrophils % (Manual) 92 % (39-76) H 01/14/23 05:15 Band Neutrophils % 2 % (0-10) 01/14/23 05:15 Lymphocytes % (Manual) 2 % (13-43) L 01/14/23 05:15 Monocytes % (Manual) 4 % (4-9) 01/14/23 05:15 Plt Morphology Comment Normal (NORMAL) 01/14/23 05:15 RBC Morphology Normal (NORMAL) 01/14/23 05:15 Sample Site Lr 01/13/23 23:25 ABG pH 7.330 (7.35-7.45) L 01/13/23 23:25 ABG pCO2 52.0 mmHg (35.0-45.0) H* 01/13/23 23:25 ABG pO2 92.0 mmHg (80.0-100.0) 01/13/23 23:25 ABG HCO3 27.4 mmol/L (22-26) H 01/13/23 23:25 ABG O2 Saturation 97.0 % (90-100) 01/13/23 23:25 ABG Base Excess 0.7 mmol/L (-2.0-2.0) 01/13/23 23:25 Jeff Test Pos 01/13/23 23:25 A-a Gradient 71.0 mmHg 01/13/23 23:25 FiO2 32.0 01/13/23 23:25 Blood Gas Comments [facility] 01/13/23 23:25 Sodium 144 mmol/L (136-145) 01/14/23 05:15 Corrected Sodium 145 mmol/L (136-145) 01/14/23 05:15 Potassium 4.5 mmol/L (3.5-5.1) 01/14/23 05:15 Chloride 107 mmol/L (98-107) 01/14/23 05:15 Carbon Dioxide 27.6 mmol/L (21-32) 01/14/23 05:15 BUN 19 mg/dL (7-18) H 01/14/23 05:15 Creatinine 1.21 mg/dL (0.55-1.02) H 01/14/23 05:15 Est GFR (MDRD) Af Amer 54 (>60) L 01/14/23 05:15 Est GFR (MDRD) Non-Af 45 (>60) L 01/14/23 05:15 Glucose 140 mg/dL (65-99) H 01/14/23 05:15 Calcium 8.5 mg/dL (8.5-10.1) 01/14/23 05:15 Corrected Calcium 9.7 mg/dL (8.5-10.1) 01/14/23 05:15 Total Bilirubin 0.30 mg/dL (0.2-1.0) 01/14/23 05:15 AST 17 Units/L (15-37) 01/14/23 05:15 ALT 15 Units/L (12-78) 01/14/23 05:15 Alkaline Phosphatase 57 Units/L (46-116) 01/14/23 05:15 Creatine Kinase 57 Units/L (26-192) 01/13/23 23:40 Troponin I High Sens 46.3 ng/L (4.0-60.0) 01/13/23 23:40 B-Natriuretic Peptide 1430 pg/mL (0-79) H* 01/13/23 23:40 Total Protein 6.2 g/dL (6.4-8.2) L 01/14/23 05:15 Albumin 2.5 g/dL (3.4-5.0) L 01/14/23 05:15 Globulin 3.7 g/dL (2.5-4.5) 01/14/23 05:15 Albumin/Globulin Ratio 0.7 Ratio (1.1-2.1) L 01/14/23 05:15 Specimen Type Catherized urine 01/14/23 00:38 Urine Color Yellow (YELLOW) 01/14/23 00:38 Urine Appearance Clear (CLEAR) 01/14/23 00:38 Urine pH 5.0 (5.0 - 8.0) 01/14/23 00:38 Ur Specific [place] 1.020 (1.000-1.030) 01/14/23 00:38 Urine Protein 4+ (NEGATIVE) 01/14/23 00:38 Urine Glucose (UA) Negative (NEGATIVE) 01/14/23 00:38 Urine Ketones Negative (NEGATIVE) 01/14/23 00:38 Urine Blood 1+ (NEGATIVE) 01/14/23 00:38 Urine Nitrite Negative (NEGATIVE) 01/14/23 00:38 Urine Bilirubin Negative (NEGATIVE) 01/14/23 00:38 Urine Urobilinogen Normal (NORMAL) 01/14/23 00:38 Ur Leukocyte Esterase Negative (NEGATIVE) 01/14/23 00:38 Urine RBC 0-2 /HPF (0-3) 01/14/23 00:38 Urine WBC 0-2 /HPF (0-5) 01/14/23 00:38 Ur Squamous Epith Cells Rare /HPF (NEGATIVE) 01/14/23 00:38 Ur Transition Epith Cell Few /HPF (NEGATIVE) 01/14/23 00:38 Urine Bacteria Trace /HPF (NEGATIVE) 01/14/23 00:38 Hyaline Casts Moderate /LPF (NEGATIVE) 01/14/23 00:38 Urine Mucus Few /HPF (NEGATIVE) 01/14/23 00:38 Ur Culture Indicated? No/not indicated 01/14/23 00:38 Review of Systems Constitutional: No Symptoms Reported and Weakness Eyes: No Symptoms Reported ENT: No Symptoms Reported Respiratory: Shortness of Breath Cardiovascular: No Symptoms Reported Gastrointestinal: No Symptoms Reported Genitourinary: No Symptoms Reported Musculoskeletal: No Symptoms Reported Skin: No Symptoms Reported Neurological: No Symptoms Reported Physical Exam Vital Signs: Vital Signs Temperature 98.1 F Pulse Rate [Right] 75 Pulse Rate 91 Respiratory Rate 20 Blood Pressure [Left Arm] 147/67 O2 Sat by Pulse Oximetry 97 O2 Sat by Pulse Oximetry 98 Oriented: Normal Eyes: Normal Nose: Normal Respiratory: Diminished Throughout Cardiovascular: Normal Auscultation: Bowel Sounds: Normal Palpation: Normal Tenderness: Normal Skin: Normal Musculoskeletal: Normal Psychiatric: Normal Mood Description: Calm Affect: Normal Speech Pattern: Clear and Appropriate Assessment/Plan (1) CHF (congestive heart failure): Status: Acute Plan: Diuresis with IV Lasix. Check daily BMPs. Monitor for hypokalemia while patient is receiving Lasix. (2) Chronic renal insufficiency: Qualifiers: Chronic kidney disease stage: stage 2 (mild) Qualified Code(s): N18.2 - Chronic kidney disease, stage 2 (mild) Status: Acute Plan: Monitor daily BUN/creatinine and estimated GFR was Daily CMP's. (3) Hypothyroidism: Status: Acute Plan: Resume levothyroxine 25 mcg daily.
[2023-01-14] MEDS ORDERED: BUTT CREAM (COMPOUND) TOP PRN (21:00)
[2023-01-14] MEDS ORDERED: PLAVIX PO SCH (21:00)
[2023-01-15] MEDS: DUONEB 0.5 MG/3 MG (3 mL) NEB SCH ×2 (01:30→05:45)
[2023-01-15 05:05] VITALS: RESP 20
[2023-01-15] MEDS: REQUIP PO SCH (05:08)
[2023-01-15] MEDS: SOLU-Medrol 40 MG VIAL IVP SCH (05:09)
[2023-01-15 05:40] LABS: BASOPHILS % (AUTO) 0.1 % (0.2-1.0); HEMOGLOBIN 8.5 g/dL (12.0-16.0); LYMPHOCYTES # (AUTO) 0.6 X10^3/uL (1.3-2.9); LYMPHOCYTES % (AUTO) 7.1 % (21.0-51.0); MEAN CORPUSCULAR HEMOGLOBIN 28.2 pg (27.0-34.0); MEAN CORPUSCULAR HGB CONC 34.1 g/dL (33.0-35.0); MEAN CORPUSCULAR VOLUME 82.8 fL (80.0-100.0); MEAN PLATELET VOLUME 8.6 fL (7.4-11.0); MONOCYTES # (AUTO) 0.5 x10^3/uL (0.3-0.8); MONOCYTES % (AUTO) 5.5 % (0.0-13.0); NEUTROPHILS # (AUTO) 7.2 x10^3/uL (2.2-4.8); NEUTROPHILS % (AUTO) 87.3 % (42.0-75.0); PLATELET COUNT 276 X10^3/uL (150.0-450.0); RED BLOOD COUNT 3.02 X10^6/uL (3.5-5.4); WHITE BLOOD COUNT 8.3 X10^3/uL (3.6-10.0)
[2023-01-15 05:47] LABS: ALBUMIN 2.4 g/dL (3.4-5.0); CALCIUM 7.8 mg/dL (8.5-10.1); COR CA(FOR HYPOALB) 9.1 mg/dL (8.5-10.1); CREATININE 1.73 mg/dL (0.55-1.02); TOTAL PROTEIN 5.8 g/dL (6.4-8.2)
[2023-01-15] MEDS: SYNTHROID 25 mcg TAB PO SCH (05:48)
[2023-01-15] MEDS: PULMICORT NEB TX 0.5 MG NEB SCH (08:10)
[2023-01-15] MEDS: ROCEPHIN VIAL 1 GRAM 1 G in NS 100 ML IV 100 ML IV SCH (09:11)
[2023-01-15] MEDS: PROTONIX TAB 40 MG PO SCH (09:12)
[2023-01-15] MEDS: NEURONTIN CAP 100 MG PO SCH (09:12)
[2023-01-15] MEDS: LIPITOR TAB 40 MG PO SCH (09:12)
[2023-01-15] MEDS: SINGULAIR TAB 10 MG PO SCH (09:12)
[2023-01-15] MEDS: LASIX IVP SCH (09:12)
[2023-01-15] MEDS: PEPCID TAB 40 MG PO SCH (09:12)
[2023-01-15] MEDS: CORDARONE TAB 200 MG PO SCH (09:12)
[2023-01-15] MEDS: EFFEXOR TAB 75 MG (BID DOSING) PO SCH (09:12)
[2023-01-15] MEDS: COREG TAB 3.125 MG PO SCH (09:12)
[2023-01-15] MEDS: ARICEPT TAB 10 MG PO SCH (09:12)
[2023-01-15 12:11] VITALS: BP 142/60; PULSE 76; TEMP 98.2; O2SAT 93
== END 2023-01-15 14:23 | disposition home health service (06) ==
LOC: MED/SURG 23:15 → ER 23:15 → MED/SURG 01-14 01:24
PROVIDERS: ADMIT Family Medicine; ATTEND Family Medicine
DX: E78.2 Mixed hyperlipidemia; I13.0 Hypertensive heart and chronic kidney disease with heart failure and stage 1 through stage 4 chronic kidney disease, or unspecified chronic kidney disease; J44.1 Chronic obstructive pulmonary disease with (acute) exacerbation; I25.10 Atherosclerotic heart disease of native coronary artery without angina pectoris; I50.9 Heart failure, unspecified; E87.0 Hyperosmolality and hypernatremia; K21.9 Gastro-esophageal reflux disease without esophagitis; E03.8 Other specified hypothyroidism; N18.2 Chronic kidney disease, stage 2 (mild); R06.02 Shortness of breath

== ENCOUNTER 2023-11-18 10:55 | Observation (INO) ==
--- NOTE | 2023-11-18 11:08 | DR.AMS ---
HPI Time Seen Time Seen by Provider: 11/18/23 11:08 PMH PMH Past Medical History: Anemia, Arthritis, Asthma, CHF, COPD, Coronary Artery Disease, Dyslipidemia, GERD, Hypertension and [place] Past Surgical History: Yes Surgical History: Angioplasty/Stents, Cholecystectomy, Hysterectomy, Tonsillectomy and Other Family History Family Medical History: Diabetes Mellitus, Cancer, [place], Coronary Artery Disease, Sudden Cardiac and Hypertension Social History Do you use any recreational Drugs:: No PE Vitals Vital Signs: Temp Pulse Resp BP Pulse Ox O2 Del Method 11/18/23 14:57 20 11/18/23 14:30 78 93 L 11/18/23 14:30 137/89 11/18/23 14:15 76 94 L 11/18/23 14:01 144 H 71 L 11/18/23 14:01 130/91 11/18/23 14:00 68 L 11/18/23 13:45 79 L 11/18/23 13:30 71 94 L 11/18/23 13:30 142/58 11/18/23 13:15 73 93 L 11/18/23 13:00 72 93 L 11/18/23 13:00 130/88 11/18/23 12:45 72 94 L 11/18/23 12:31 72 95 11/18/23 12:31 123/56 11/18/23 12:30 71 94 L 11/18/23 12:15 71 95 11/18/23 12:00 72 95 11/18/23 12:00 123/59 11/18/23 11:45 77 93 L 11/18/23 11:35 79 95 11/18/23 11:32 112/54 11/18/23 11:15 80 93 L 11/18/23 11:01 80 91 L 11/18/23 11:02 98.4 F 80 18 138/62 90 L Room Air ROR Labs Reviewed 11/18/23 11:25 11/18/23 11:25 Laboratory: WBC 5.4 X10^3/uL (3.6-10.0) 11/18/23 11:25 RBC 3.54 X10^6/uL (3.5-5.4) 11/18/23 11:25 Hgb 9.8 g/dL (12.0-16.0) L 11/18/23 11:25 Hct 31.1 % (36.0-47.0) L 11/18/23 11:25 MCV 87.9 fL (80.0-100.0) 11/18/23 11:25 MCH 27.7 pg (27.0-34.0) 11/18/23 11: MCHC 31.5 g/dL (33.0-35.0) L 11/18/23 11: RDW 15.0 % (11.6-16.5) 11/18/23 11:25 Plt Count 250 X10^3/uL (150.0-450.0) 11/18/23 11:25 MPV 9.0 fL (7.4-11.0) 11/18/23 11:25 Neut % (Auto) 75.0 % (42.0-75.0) 11/18/23 11: Lymph % (Auto) 8.1 % (21.0-51.0) L 11/18/23 11:25 [place] % (Auto) 14.3 % (0.0-13.0) H 11/18/23 11:25 Eos % (Auto) 1.9 % (0.9-2.9) 11/18/23 11: Baso % (Auto) 0.7 % (0.2-1.0) 11/18/23: Neut # (Auto) 4.1 x10^3/uL (2.2-4.8) 11/18/23 11: Lymph # (Auto) 0.4 X10^3/uL (1.3-2.9) L 11/18/23 11:25 [place] # (Auto) 0.8 x10^3/uL (0.3-0.8) 11/18/23 11: Eos # (Auto) 0.1 x10^3/uL (0.0-0.2) 11/18/23 11: Baso # (Auto) 0.0 X10^3/uL (0.0-0.1) 11/18/23 11: Absolute Nucleated RBC 0.4 /100WBC 11/18/23 11:25 Sodium 145 mmol/L (136-145) 11/18/23 11:25 Corrected Sodium TNP 11/18/23 11:25 Potassium 4.6 mmol/L (3.5-5.1) 11/18/23 11:25 Chloride 109 mmol/L (98-107) H 11/18/23 11:25 Carbon Dioxide 30.6 mmol/L (21-32) 11/18/23 11:25 BUN 16 mg/dL (7-18) 11/18/23 11:25 Creatinine 1.53 mg/dL (0.55-1.02) H 11/18/23 11:25 Est GFR (MDRD) Af Amer 41 (>60) L 11/18/23 11:25 Est GFR (MDRD) Non-Af 34 (>60) L 11/18/23 11:25 Glucose 104 mg/dL (65-99) H 11/18/23 11:25 Lactic Acid 0.5 mmol/L (0.4-2.0) 11/18/23 11:25 Calcium 8.4 mg/dL (8.5-10.1) L 11/18/23 11:25 Corrected Calcium 9.4 mg/dL (8.5-10.1) 11/18/23 11:25 Total Bilirubin 0.30 mg/dL (0.2-1.0) 11/18/23 11:25 AST 27 Units/L (15-37) 11/18/23 11:25 ALT 22 Units/L (12-78) 11/18/23 11:25 Alkaline Phosphatase 71 Units/L (46-116) 11/18/23 11:25 Total Protein 7.1 g/dL (6.4-8.2) 11/18/23 11:25 Albumin 2.7 g/dL (3.4-5.0) L 11/18/23 11:25 Globulin 4.4 g/dL (2.5-4.5) 11/18/23 11:25 Albumin/Globulin Ratio 0.6 Ratio (1.1-2.1) L 11/18/23 11:25 Specimen Type Clean catch urine 11/18/23 11:58 Urine Color Straw (YELLOW) 11/18/23 11:58 Urine Appearance Slightly hazy (CLEAR) 11/18/23 11:58 Urine pH 5.0 (5.0 - 8.0) 11/18/23 11:58 Ur Specific [place] 1.015 (1.000-1.030) 11/18/23 11:58 Urine Protein 2+ (NEGATIVE) 11/18/23 11:58 Urine Glucose (UA) Negative (NEGATIVE) 11/18/23 11:58 Urine Ketones Negative (NEGATIVE) 11/18/23 11:58 Urine Blood 1+ (NEGATIVE) 11/18/23 11:58 Urine Nitrite Negative (NEGATIVE) 11/18/23 11:58 Urine Bilirubin Negative (NEGATIVE) 11/18/23 11:58 Urine Urobilinogen Normal (NORMAL) 11/18/23 11:58 Ur Leukocyte Esterase 3+ (NEGATIVE) 11/18/23 11:58 Urine RBC 3-5 /HPF (0-3) A 11/18/23 11:58 Urine WBC Tntc /HPF (0-5) A 11/18/23 11:58 Ur Squamous Epith Cells Many /HPF (NEGATIVE) 11/18/23 11:58 Urine Bacteria Trace /HPF (NEGATIVE) 11/18/23 11:58 Ur Culture Indicated? Yes/culture set up 11/18/23 11:58 Opioid Opioid Risk Tool Age (Michael box if 16-45): No History of Preadolescent Sexual Abuse: No Total: 0 Total Score Risk Category: Low Risk Copyright: Cornell SEGOVIA predicting aberrant behaviors Discharge Plan Discharge Plan Patient Disposition: 01 HOME, SELF-CARE Condition: Stable Prescriptions: No Action budesonide 0.5 mg/2 mL suspension for nebulization 0.5 mg inhalation BID Qty: 60 3RF ropinirole 0.5 mg tablet 0.5 mg PO TID Qty: 90 0RF levothyroxine 75 mcg tablet 75 mcg PO QDAY 30 Days Qty: 30 3RF montelukast 10 mg tablet 10 mg PO QDAY Qty: 30 3RF amiodarone 100 mg tablet 100 mg PO QDAY 30 Days Qty: 30 1RF albuterol sulfate 90 mcg/actuation HFA aerosol inhaler 2 puff inhalation Q4-6H PRN (Reason: shortness of breath or wheezing) Qty: 8.5 3RF albuterol sulfate 1.25 mg/3 mL solution for nebulization 1.25 mg inhalation Q4-6H PRN (Reason: shortness of breath or wheezing) Qty: 90 3RF venlafaxine 75 mg tablet 75 mg PO QDAY Qty: 30 2RF pantoprazole 40 mg tablet,delayed release (DR/EC) 40 mg PO BID 30 Days Qty: 60 2RF memantine 10 mg tablet 10 mg PO BID Qty: 60 2RF furosemide 20 mg tablet 20 mg PO QDAY Qty: 30 3RF donepezil [Aricept] 10 mg tablet 10 mg PO QDAY Qty: 30 1RF gabapentin 100 mg capsule 200 mg PO BID 30 Days Qty: 120 2RF acetaminophen [Tylenol] 325 mg Tablet 325 mg PO Q4H PRN ondansetron HCl [Zofran] 4 mg Tablet 4 mg PO Q8H PRN (Reason: Nausea) acetaminophen-codeine 325-15 mg Tablet 1 tab PO Q6H PRN clopidogrel 75 mg tablet 75 mg PO QDAY aspirin 81 mg Tablet,Delayed Release (Dr/Ec) 81 mg PO DAILY docusate sodium [Colace] 100 mg Capsule 100 mg PO BID atorvastatin 40 mg tablet 40 mg PO HS carvedilol 3.125 mg tablet 3.125 mg PO BID Patient Comments: Take One Tablet Twice a day, per Patients daughter. Rx Instructions: must administer with a meal/food Health Concerns: Post Hospitalization: new medications and changes needed to prevent readmission or further decline. Pt educated and given instructions on all concerns. Plan of Treatment: Continue with present treatment and follow up plan. Pt is to keep follow up appointment as instructed and take medications as ordered. Orders to Discharge Patient Discharge Orders: Transfer (Routine); Ordered 11/18/23 Ordered By: LORENA FU Follow ups/Referrals Follow ups/Referrals: NFD,None [STAFF PHYSICIAN] - 3 days Instructions Stand Alone Forms: Post Hospital Follow Up Care
--- NOTE | 2023-11-18 11:30 | EKG ---
Test Reason : cad Blood Pressure : */* mmHG Vent. Rate : 81 BPM Atrial Rate : 81 BPM P-R Int : 182 ms QRS Dur : 134 ms QT Int : 448 ms P-R-T Axes : 82 62 66 degrees QTc Int : 520 ms Normal sinus rhythm Right bundle branch block Abnormal ECG When compared with ECG of 14-JAN-2023 01:01, Right bundle branch block is now present Confirmed by Camacho Davis MD ([id number]) on 11/18/2023 5:11:27 PM Referred By: Confirmed By: Camacho Davis MD
[2023-11-18 11:44] LABS: BASOPHILS % (AUTO) 0.7 % (0.2-1.0); EOSINOPHILS # (AUTO) 0.1 x10^3/uL (0.0-0.2); EOSINOPHILS % (AUTO) 1.9 % (0.9-2.9); HEMATOCRIT 31.1 % (36.0-47.0); HEMOGLOBIN 9.8 g/dL (12.0-16.0); LYMPHOCYTES # (AUTO) 0.4 X10^3/uL (1.3-2.9); LYMPHOCYTES % (AUTO) 8.1 % (21.0-51.0); MEAN CORPUSCULAR HEMOGLOBIN 27.7 pg (27.0-34.0); MEAN CORPUSCULAR HGB CONC 31.5 g/dL (33.0-35.0); MEAN CORPUSCULAR VOLUME 87.9 fL (80.0-100.0); MONOCYTES # (AUTO) 0.8 x10^3/uL (0.3-0.8); MONOCYTES % (AUTO) 14.3 % (0.0-13.0); NEUTROPHILS # (AUTO) 4.1 x10^3/uL (2.2-4.8); PLATELET COUNT 250 X10^3/uL (150.0-450.0); RED BLOOD COUNT 3.54 X10^6/uL (3.5-5.4); WHITE BLOOD COUNT 5.4 X10^3/uL (3.6-10.0)
[2023-11-18 11:51] LABS: ALANINE AMINOTRANSFERASE 22 Units/L (12-78); ALBUMIN 2.7 g/dL (3.4-5.0); ALKALINE PHOSPHATASE 71 Units/L (46-116); ASPARTATE AMINO TRANSFERASE 27 Units/L (15-37); BLOOD UREA NITROGEN 16 mg/dL (7-18); CALCIUM 8.4 mg/dL (8.5-10.1); CARBON DIOXIDE 30.6 mmol/L (21-32); CHLORIDE 109 mmol/L (98-107); COR CA(FOR HYPOALB) 9.4 mg/dL (8.5-10.1); CREATININE 1.53 mg/dL (0.55-1.02); GLUCOSE 104 mg/dL (65-99); POTASSIUM 4.6 mmol/L (3.5-5.1); SODIUM 145 mmol/L (136-145); TOTAL PROTEIN 7.1 g/dL (6.4-8.2); eGFR NON BLACK RACES 34 (>60)
--- NOTE | 2023-11-18 12:01 | RAD ---
EXAM:CHEST, 1 VIEWHISTORY:Shortness of breath, altered mental status; sx-hysterectomy, tonsillectomy, cholecystectomyCOMPARISON:June 23, 2023 frontal chestTECHNIQUE:1 portable upright frontal chest radiographFINDINGS:There is abnormal right hilar and infrahilar density that could represent atelectasis, pneumonia or adenopathy. Clips are noted in the left axilla region. Underlying interstitial coarsening. No pneumothorax. Heart size is prominent without overt failure.IMPRESSION:Underlying interstitial lung disease with right hilar and infrahilar density that could represent atelectasis, pneumonia or adenopathy. Follow-up two views of the chest is suggested when clinically appropriate.THIS IS AN ELECTRONICALLY VERIFIED FINAL REPORT11/18/2023 11:58 AM - Electronically signed by Dexter Shepherd MD
[2023-11-18 12:03] LABS: BILIRUBIN,URINE NEGATIVE (NEGATIVE); BLOOD/HEMOGLOBIN,URINE 1+ (NEGATIVE); GLUCOSE, URINE NEGATIVE (NEGATIVE); KETONES,URINE NEGATIVE (NEGATIVE); LEUKOCYTE ESTERASE ,URINE 3+ (NEGATIVE); NITRITES,URINE NEGATIVE (NEGATIVE); PROTEIN,URINE 2+ (NEGATIVE); UROBILINOGEN,URINE NORMAL (NORMAL)
[2023-11-18 12:08] LABS: APPEARANCE,URINE SLIGHTLY HAZY (CLEAR); COLOR,URINE STRAW (YELLOW)
[2023-11-18 12:09] LABS: BACTERIA,URINE TRACE /HPF (NEGATIVE); SQUAMOUS EPITHELIAL CELL,UR MANY /HPF (NEGATIVE)
[2023-11-18] MEDS: ROCEPHIN VIAL 1 GRAM IV ONE (12:50)
[2023-11-18] MEDS ORDERED: NS 1/2 1,000 ML IV 1,000 ML IV ONE (17:07)
[2023-11-18] MEDS: NS 1/2 1,000 ML IV 1,000 ML IV SCH (17:13)
[2023-11-18] MEDS: ROBITUSSIN DM PO SCH (17:14)
[2023-11-18 17:50] VITALS: BMI 27.3
[2023-11-18] MEDS ORDERED: PULMICORT NEB TX 0.5 MG NEB ONE (20:00)
[2023-11-18] MEDS: DUONEB 0.5 MG/3 MG (3 mL) NEB SCH (20:34)
[2023-11-18] MEDS: PULMICORT NEB TX 0.5 MG NEB SCH (20:34)
[2023-11-19 05:31] LABS: BASOPHILS % (AUTO) 0.9 % (0.2-1.0); EOSINOPHILS # (AUTO) 0.1 x10^3/uL (0.0-0.2); EOSINOPHILS % (AUTO) 2.1 % (0.9-2.9); HEMATOCRIT 26.4 % (36.0-47.0); HEMOGLOBIN 8.7 g/dL (12.0-16.0); LYMPHOCYTES # (AUTO) 0.9 X10^3/uL (1.3-2.9); LYMPHOCYTES % (AUTO) 16.8 % (21.0-51.0); MEAN CORPUSCULAR HEMOGLOBIN 28.5 pg (27.0-34.0); MEAN CORPUSCULAR HGB CONC 32.8 g/dL (33.0-35.0); MEAN CORPUSCULAR VOLUME 86.8 fL (80.0-100.0); MEAN PLATELET VOLUME 9.2 fL (7.4-11.0); MONOCYTES % (AUTO) 18.9 % (0.0-13.0); NEUTROPHILS # (AUTO) 3.2 x10^3/uL (2.2-4.8); NEUTROPHILS % (AUTO) 61.3 % (42.0-75.0); PLATELET COUNT 205 X10^3/uL (150.0-450.0); RED BLOOD COUNT 3.04 X10^6/uL (3.5-5.4); RED CELL DISTRIBUTION WIDTH 15.1 % (11.6-16.5); WHITE BLOOD COUNT 5.2 X10^3/uL (3.6-10.0)
[2023-11-19 05:44] LABS: ALANINE AMINOTRANSFERASE 15 Units/L (12-78); ALBUMIN 2.4 g/dL (3.4-5.0); ALKALINE PHOSPHATASE 61 Units/L (46-116); ASPARTATE AMINO TRANSFERASE 18 Units/L (15-37); BLOOD UREA NITROGEN 19 mg/dL (7-18); CALCIUM 8.2 mg/dL (8.5-10.1); CARBON DIOXIDE 30.3 mmol/L (21-32); CHLORIDE 106 mmol/L (98-107); COR CA(FOR HYPOALB) 9.5 mg/dL (8.5-10.1); GLUCOSE 89 mg/dL (65-99); POTASSIUM 3.5 mmol/L (3.5-5.1); SODIUM 145 mmol/L (136-145); TOTAL PROTEIN 6.3 g/dL (6.4-8.2); eGFR NON BLACK RACES 30 (>60)
[2023-11-19] MEDS: CONSULT PHARMACY - POTASSIUM & MAGNESIUM XX SCH (07:38)
[2023-11-19] MEDS: K-DUR TAB 20 MEQ PO SCH (09:06)
[2023-11-19] MEDS: VSL#3 PROBIOTIC CAP 112.5 B PO SCH (09:06)
[2023-11-19] MEDS: ROCEPHIN VIAL 1 GRAM 1 G in NS 100 ML IV 100 ML IV SCH (09:06)
--- NOTE | 2023-11-19 10:47 | DR.H&P ---
H&P History & Physical for Day of: H&P Date: 11/18/23 Chief Complaint Chief Complaint: weakness, sob Allergies Allergies Allergy/AdvReac Type Severity Reaction Status Date / Time levofloxacin [From Levaquin] Allergy Unknown Verified 01/06/23 19:38 History of Present Illness History of Present Illness: PT IS 88 WF, ER ADMISSION WITH DIFFUSE WEAKNESS, SOB, INCREASED CONFUSION AND UTI. PT HAS PMH OF CHF, CAD, VASCULAR DEMENTIA, HTN, GERD, JUVE AND OA. PT ADMITTED FOR TREATMENT AND EVALUATION OF ACUTE ILLNESS. Past Medical History Past Medical History: Anemia, Arthritis, Asthma, CHF, COPD, Coronary Artery Disease, Dyslipidemia, GERD, Hypertension and [place] Additional Medical History: Breast and uterine cancer Past Surgical History Surgical History: Angioplasty/Stents, Cholecystectomy, Hysterectomy, Tonsillectomy and Other Family History Family Medical History: Diabetes Mellitus, Cancer, [place], Coronary Artery Disease, Sudden Cardiac and Hypertension Social History Does patient currently use any type of tobacco product: Yes Have you used tobacco products in the last 12 months: Yes Type of Tobacco Use: Cigarettes Does any household member use tobacco: No Alcohol Use: None Drug Use: None Medications Home Medications: Home Medications Medication Instructions Recorded Confirmed Type acetaminophen 325 mg tablet 325 mg PO Q4H PRN 11/18/23 11/18/23 History (Tylenol) acetaminophen 325 mg-codeine 15 mg 1 tab PO Q6H PRN 11/18/23 11/18/23 History tablet aspirin 81 mg tablet,delayed 81 mg PO DAILY 11/18/23 11/18/23 History release atorvastatin 40 mg tablet 40 mg PO HS 11/18/23 11/18/23 History carvedilol 3.125 mg tablet 3.125 mg PO BID 11/18/23 11/18/23 History clopidogrel 75 mg tablet 75 mg PO QDAY 11/18/23 11/18/23 History docusate sodium 100 mg capsule 100 mg PO BID 11/18/23 11/18/23 History (Colace) ondansetron HCl 4 mg tablet 4 mg PO Q8H PRN Nausea 11/18/23 11/18/23 History Labs 11/19/23 04:58 11/19/23 04:58 Labs: 11/18/23 11:58 Urine,Clean Catch Urine Culture - Preliminary Laboratory WBC 5.2 X10^3/uL (3.6-10.0) 11/19/23 04:58 RBC 3.04 X10^6/uL (3.5-5.4) L 11/19/23 04:58 Hgb 8.7 g/dL (12.0-16.0) L 11/19/23 04:58 Hct 26.4 % (36.0-47.0) L 11/19/23 04:58 MCV 86.8 fL (80.0-100.0) 11/19/23 04:58 MCH 28.5 pg (27.0-34.0) 11/19/23 04:58 MCHC 32.8 g/dL (33.0-35.0) L 11/19/23 04:58 RDW 15.1 % (11.6-16.5) 11/19/23 04:58 Plt Count 205 X10^3/uL (150.0-450.0) 11/19/23 04:58 MPV 9.2 fL (7.4-11.0) 11/19/23 04:58 Neut % (Auto) 61.3 % (42.0-75.0) 11/19/23 04:58 Lymph % (Auto) 16.8 % (21.0-51.0) L 11/19/23 04:58 [place] % (Auto) 18.9 % (0.0-13.0) H 11/19/23 04:58 Eos % (Auto) 2.1 % (0.9-2.9) 11/19/23 04:58 Baso % (Auto) 0.9 % (0.2-1.0) 11/19/23 04:58 Neut # (Auto) 3.2 x10^3/uL (2.2-4.8) 11/19/23 04:58 Lymph # (Auto) 0.9 X10^3/uL (1.3-2.9) L 11/19/23 04:58 [place] # (Auto) 1.0 x10^3/uL (0.3-0.8) H 11/19/23 04:58 Eos # (Auto) 0.1 x10^3/uL (0.0-0.2) 11/19/23 04:58 Baso # (Auto) 0.0 X10^3/uL (0.0-0.1) 11/19/23 04:58 Absolute Nucleated RBC 0.1 /100WBC 11/19/23 04:58 Sodium 145 mmol/L (136-145) 11/19/23 04:58 Corrected Sodium TNP 11/19/23 04:58 Potassium 3.5 mmol/L (3.5-5.1) 11/19/23 04:58 Chloride 106 mmol/L (98-107) 11/19/23 04:58 Carbon Dioxide 30.3 mmol/L (21-32) 11/19/23 04:58 BUN 19 mg/dL (7-18) H 11/19/23 04:58 Creatinine 1.70 mg/dL (0.55-1.02) H 11/19/23 04:58 Est GFR (MDRD) Af Amer 37 (>60) L 11/19/23 04:58 Est GFR (MDRD) Non-Af 30 (>60) L 11/19/23 04:58 Glucose 89 mg/dL (65-99) 11/19/23 04:58 Lactic Acid 0.5 mmol/L (0.4-2.0) 11/18/23 11:25 Calcium 8.2 mg/dL (8.5-10.1) L 11/19/23 04:58 Corrected Calcium 9.5 mg/dL (8.5-10.1) 11/19/23 04:58 Magnesium 2.1 mg/dL (2.0-2.9) 11/19/23 04:58 Total Bilirubin 0.20 mg/dL (0.2-1.0) 11/19/23 04:58 AST 18 Units/L (15-37) 11/19/23 04:58 ALT 15 Units/L (12-78) 11/19/23 04:58 Alkaline Phosphatase 61 Units/L (46-116) 11/19/23 04:58 Total Protein 6.3 g/dL (6.4-8.2) L 11/19/23 04:58 Albumin 2.4 g/dL (3.4-5.0) L 11/19/23 04:58 Globulin 3.9 g/dL (2.5-4.5) 11/19/23 04:58 Albumin/Globulin Ratio 0.6 Ratio (1.1-2.1) L 11/19/23 04:58 Specimen Type Clean catch urine 11/18/23 11:58 Urine Color Straw (YELLOW) 11/18/23 11:58 Urine Appearance Slightly hazy (CLEAR) 11/18/23 11:58 Urine pH 5.0 (5.0 - 8.0) 11/18/23 11:58 Ur Specific [place] 1.015 (1.000-1.030) 11/18/23 11:58 Urine Protein 2+ (NEGATIVE) 11/18/23 11:58 Urine Glucose (UA) Negative (NEGATIVE) 11/18/23 11:58 Urine Ketones Negative (NEGATIVE) 11/18/23 11:58 Urine Blood 1+ (NEGATIVE) 11/18/23 11:58 Urine Nitrite Negative (NEGATIVE) 11/18/23 11:58 Urine Bilirubin Negative (NEGATIVE) 11/18/23 11:58 Urine Urobilinogen Normal (NORMAL) 11/18/23 11:58 Ur Leukocyte Esterase 3+ (NEGATIVE) 11/18/23 11:58 Urine RBC 3-5 /HPF (0-3) A 11/18/23 11:58 Urine WBC Tntc /HPF (0-5) A 11/18/23 11:58 Ur Squamous Epith Cells Many /HPF (NEGATIVE) 11/18/23 11:58 Urine Bacteria Trace /HPF (NEGATIVE) 11/18/23 11:58 Ur Culture Indicated? Yes/culture set up 11/18/23 11:58 Review of Systems Constitutional: Weakness Eyes: No Symptoms Reported ENT: No Symptoms Reported Respiratory: Shortness of Breath Cardiovascular: Edema Gastrointestinal: Nausea Genitourinary: No Symptoms Reported Musculoskeletal: No Symptoms Reported Skin: No Symptoms Reported Neurological: Weakness and Confusion (INCREASED) Physical Exam Vital Signs: Vital Signs Temperature 97.7 F Temperature 98.5 F Pulse Rate [Apical] 65 Pulse Rate [Apical] 67 Respiratory Rate 16 Respiratory Rate 18 Blood Pressure [Left Arm] 119/56 Blood Pressure [Left Arm] 133/60 O2 Sat by Pulse Oximetry 100 O2 Sat by Pulse Oximetry 100 Oriented: Person Eyes: Normal Ear: Normal Nose: Normal Throat: Normal Respiratory: Diminished Throughout Cardiovascular: Murmur and Edema Auscultation: Bowel Sounds: Normal Palpation: Normal Tenderness: Normal Skin: Decreased [place] Musculoskeletal: Motor Deficit Psychiatric: Anxiety Mood Description: Anxious Affect: Anxious Speech Pattern: Clear Assessment/Plan (1) Pneumonia: Narrative Support Text: ADMIT, RESP CONSULT SUPPLEMENTAL O2, IV ATBX, BREATHING TREATMENTS, SPUTUM CULTURE IV ROCEPHIN, VERIFY HOME MEDICATIONS OBTAIN ECHO ON MONDAY, I&OS Status: Acute (2) UTI (urinary tract infection): Status: Acute (3) Congestive heart failure: Status: None (4) Hypothyroidism: Status: Acute (5) Coronary artery disease: Status: None
[2023-11-19] MEDS: CORDARONE TAB 200 MG PO SCH (11:55)
[2023-11-19] MEDS: NAMENDA TAB 10 MG PO SCH (11:56)
[2023-11-19] MEDS: SYNTHROID 75 mcg TAB PO SCH (11:56)
[2023-11-19] MEDS: PLAVIX PO SCH (11:56)
[2023-11-19] MEDS: COREG TAB 3.125 MG PO SCH (11:56)
--- NOTE | 2023-11-19 16:50 | CT ---
EXAM: CHEST W/O CON HISTORY: pneumonia, chf; COMPARISON: Chest radiograph from November 18, 2023 and CTA chest exam from December 30, 2018 TECHNIQUE: Axial non-contrast images of the chest with coronal and sagittal reformats. Radiation dose: 288.98 mGy-cm total DLP FINDINGS: No pericardial effusion. Aorta and pulmonary arteries are normal in caliber. Low-attenuation of the blood in the cardiac chambers and aorta can be seen with anemia; correlate cli nically. No hilar or mediastinal adenopathy. Esophagus appears normal. Imaged portion of the upper abdomen is unremarkable. Atelectasis at the right lung base. No effusion, focal consolidation or pneumothorax. No focal concerning lung parenchymal lesion identified. Left breast implant in place. [id number] multilevel degenerative disc disease. IMPRESSION: 1. No acute intrathoracic abnormality identified. 2. Low-attenuation of the blood in the cardiac chambers and aorta can be seen with anemia; correlate clinically. THIS IS AN ELECTRONICALLY VERIFIED FINAL REPORT 11/19/2023 4:46 PM - Electronically signed by Shahbaz Sam MD
[2023-11-19] MEDS ORDERED: CONSULT PHARMACY - POTASSIUM & MAGNESIUM XX SCH (19:00)
[2023-11-19] MEDS: NS 1/2 1,000 ML IV 1,000 ML IV ONE (20:03)
[2023-11-19] MEDS: LIPITOR TAB 40 MG PO SCH (20:26)
[2023-11-20 06:30] LABS: BASOPHILS # (AUTO) 0.1 X10^3/uL (0.0-0.1); BASOPHILS % (AUTO) 1.2 % (0.2-1.0); EOSINOPHILS # (AUTO) 0.1 x10^3/uL (0.0-0.2); EOSINOPHILS % (AUTO) 1.9 % (0.9-2.9); HEMOGLOBIN 8.5 g/dL (12.0-16.0); LYMPHOCYTES # (AUTO) 1.3 X10^3/uL (1.3-2.9); LYMPHOCYTES % (AUTO) 19.5 % (21.0-51.0); MEAN CORPUSCULAR HEMOGLOBIN 28.3 pg (27.0-34.0); MEAN CORPUSCULAR HGB CONC 32.9 g/dL (33.0-35.0); MEAN CORPUSCULAR VOLUME 86.2 fL (80.0-100.0); MEAN PLATELET VOLUME 8.9 fL (7.4-11.0); MONOCYTES % (AUTO) 16.2 % (0.0-13.0); NEUTROPHILS % (AUTO) 61.2 % (42.0-75.0); PLATELET COUNT 201 X10^3/uL (150.0-450.0); RED BLOOD COUNT 3.01 X10^6/uL (3.5-5.4); RED CELL DISTRIBUTION WIDTH 14.6 % (11.6-16.5); WHITE BLOOD COUNT 6.5 X10^3/uL (3.6-10.0)
[2023-11-20 06:51] LABS: ALANINE AMINOTRANSFERASE 15 Units/L (12-78); ALBUMIN 2.3 g/dL (3.4-5.0); ALKALINE PHOSPHATASE 57 Units/L (46-116); ASPARTATE AMINO TRANSFERASE 20 Units/L (15-37); BLOOD UREA NITROGEN 17 mg/dL (7-18); CALCIUM 8.3 mg/dL (8.5-10.1); CARBON DIOXIDE 28.3 mmol/L (21-32); CHLORIDE 108 mmol/L (98-107); COR CA(FOR HYPOALB) 9.7 mg/dL (8.5-10.1); GLUCOSE 102 mg/dL (65-99); POTASSIUM 4.3 mmol/L (3.5-5.1); SODIUM 142 mmol/L (136-145); TOTAL PROTEIN 6.2 g/dL (6.4-8.2); eGFR NON BLACK RACES 38 (>60)
[2023-11-20] MEDS: ASPIRIN EC 81 MG PO SCH (09:32)
[2023-11-20] MEDS: ARICEPT TAB 10 MG PO SCH (09:32)
[2023-11-20] MEDS: EFFEXOR TAB 75 MG (BID DOSING) PO SCH (09:33)
[2023-11-20] MEDS: ROCEPHIN VIAL 1 GRAM IM SCH (10:59)
[2023-11-20] MEDS: XYLOCAINE 1 % (PLAIN) IM ONE (11:00)
[2023-11-20 11:46] LABS: IRON 35 ug/dL (50-175); TOTAL IRON BINDING CAPACITY 220 ug/dL (250-450)
[2023-11-20 14:06] VITALS: RESP 18
[2023-11-20 16:02] VITALS: BP 136/58; PULSE 70; TEMP 98.7; O2SAT 94
--- NOTE | 2023-11-22 10:51 | W.DIS.FURT ---
Summary of Discharge Discharge Summary of Date Date of Exam: 11/20/23 Admission Date Date of Admission: 11/18/23 Admission Diagnosis Patient Problems (Updated 11/18/23 @ 16:11 by Jewell Sr) UTI (urinary tract infection) (Acute) N39.0 Pneumonia (Acute) J18.9 Hospital Course: Ms Shane is a 88y/o female who presented with weakness and urinary symptoms. She has a hx of CHF, CAD, CKD and dementia. She is currently with hospice services. She was admitted for pneumonia, UTI and generalized weakness. She was started on IV antibiotics, nebs and O2 prn. Her labs were monitored daily and electrolytes were replaced as needed. Urine cx did not show any growth. CXR showed atelectasis and chronic changes. CT chest also showed chronic changes with atelectasis. She was doing better and stable for discharge. She will be discharged with current hospice services. She will f/u with PCP as scheduled. She was discharged on PO antibiotics. Vital Signs: Vital Signs (72 hours) 11/18/23 11:02 11/18/23 11:01 11/18/23 11:15 Temperature 98.4 F Pulse Rate 80 80 80 Pulse Rate [Apical] Respiratory Rate 18 Blood Pressure 138/62 Blood Pressure [Left Arm] O2 Sat by Pulse Oximetry 90 L 91 L 93 L Oxygen Delivery Method Room Air Oxygen Flow Rate FIO2% 11/18/23 11:32 11/18/23 11:35 11/18/23 11:45 Temperature Pulse Rate 79 77 Pulse Rate [Apical] Respiratory Rate Blood Pressure 112/54 Blood Pressure [Left Arm] O2 Sat by Pulse Oximetry 95 93 L Oxygen Delivery Method Oxygen Flow Rate FIO2% 11/18/23 12:00 11/18/23 12:00 11/18/23 12:15 Temperature Pulse Rate 72 71 Pulse Rate [Apical] Respiratory Rate Blood Pressure 123/59 Blood Pressure [Left Arm] O2 Sat by Pulse Oximetry 95 95 Oxygen Delivery Method Oxygen Flow Rate FIO2% 11/18/23 12:30 11/18/23 12:31 11/18/23 12:31 Temperature Pulse Rate 71 72 Pulse Rate [Apical] Respiratory Rate Blood Pressure 123/56 Blood Pressure [Left Arm] O2 Sat by Pulse Oximetry 94 L 95 Oxygen Delivery Method Oxygen Flow Rate FIO2% 11/18/23 12:45 11/18/23 13:00 11/18/23 13:00 Temperature Pulse Rate 72 72 Pulse Rate [Apical] Respiratory Rate Blood Pressure 130/88 Blood Pressure [Left Arm] O2 Sat by Pulse Oximetry 94 L 93 L Oxygen Delivery Method Oxygen Flow Rate FIO2% 11/18/23 13:15 11/18/23 13:30 11/18/23 13:30 Temperature Pulse Rate 73 71 Pulse Rate [Apical] Respiratory Rate Blood Pressure 142/58 Blood Pressure [Left Arm] O2 Sat by Pulse Oximetry 93 L 94 L Oxygen Delivery Method Oxygen Flow Rate FIO2% 11/18/23 13:45 11/18/23 14:00 11/18/23 14:01 Temperature Pulse Rate Pulse Rate [Apical] Respiratory Rate Blood Pressure 130/91 Blood Pressure [Left Arm] O2 Sat by Pulse Oximetry 79 L 68 L Oxygen Delivery Method Oxygen Flow Rate FIO2% 11/18/23 14:01 11/18/23 14:15 11/18/23 14:30 Temperature Pulse Rate 144 H 76 Pulse Rate [Apical] Respiratory Rate Blood Pressure 137/89 Blood Pressure [Left Arm] O2 Sat by Pulse Oximetry 71 L 94 L Oxygen Delivery Method Oxygen Flow Rate FIO2% 11/18/23 14:30 11/18/23 14:57 11/18/23 14:45 Temperature Pulse Rate 78 80 Pulse Rate [Apical] Respiratory Rate 20 Blood Pressure Blood Pressure [Left Arm] O2 Sat by Pulse Oximetry 93 L 92 L Oxygen Delivery Method Oxygen Flow Rate FIO2% 11/18/23 15:00 11/18/23 15:15 11/18/23 15:30 Temperature Pulse Rate 81 91 H 84 Pulse Rate [Apical] Respiratory Rate Blood Pressure Blood Pressure [Left Arm] O2 Sat by Pulse Oximetry 92 L 93 L 92 L Oxygen Delivery Method Oxygen Flow Rate FIO2% 11/18/23 15:31 11/18/23 15:31 11/18/23 15:45 Temperature Pulse Rate 83 82 Pulse Rate [Apical] Respiratory Rate Blood Pressure 121/55 Blood Pressure [Left Arm] O2 Sat by Pulse Oximetry 93 L 92 L Oxygen Delivery Method Oxygen Flow Rate FIO2% 11/18/23 16:30 11/18/23 16:23 11/18/23 16:30 Temperature 98.1 F Pulse Rate Pulse Rate [Apical] 81 Respiratory Rate 18 Blood Pressure Blood Pressure [Left Arm] 127/60 O2 Sat by Pulse Oximetry 94 L Oxygen Delivery Method Nasal Cannula Nasal Cannula Nasal Cannula Oxygen Flow Rate 2 2 2 FIO2% 28 11/18/23 19:00 11/18/23 19:38 11/18/23 20:34 Temperature 99.9 F H Pulse Rate Pulse Rate [Apical] 67 Respiratory Rate 18 Blood Pressure Blood Pressure [Left Arm] 97/54 O2 Sat by Pulse Oximetry 100 Oxygen Delivery Method Nasal Cannula Room Air Nasal Cannula Oxygen Flow Rate 2 2 FIO2% 28 11/18/23 20:35 11/18/23 23:33 11/19/23 04:00 Temperature 98.5 F 98.5 F Pulse Rate 68 Pulse Rate [Apical] 65 67 Respiratory Rate 20 18 Blood Pressure Blood Pressure [Left Arm] 125/65 133/60 O2 Sat by Pulse Oximetry 100 100 100 Oxygen Delivery Method Room Air Room Air Oxygen Flow Rate FIO2% 11/19/23 07:23 11/19/23 07:00 11/19/23 13:33 Temperature 97.7 F Pulse Rate 76 Pulse Rate [Apical] 65 Respiratory Rate 16 Blood Pressure Blood Pressure [Left Arm] 119/56 O2 Sat by Pulse Oximetry 100 97 Oxygen Delivery Method Room Air Nasal Cannula Oxygen Flow Rate 2 FIO2% 11/19/23 17:48 11/19/23 12:00 11/19/23 16:00 Temperature 98.8 F 98.5 F Pulse Rate 73 Pulse Rate [Apical] 71 73 Respiratory Rate 17 20 Blood Pressure Blood Pressure [Left Arm] 118/58 110/57 O2 Sat by Pulse Oximetry 100 96 95 Oxygen Delivery Method Room Air Room Air Oxygen Flow Rate FIO2% 11/19/23 19:00 11/19/23 20:00 11/19/23 20:05 Temperature 98.9 F Pulse Rate Pulse Rate [Apical] 74 Respiratory Rate 21 Blood Pressure Blood Pressure [Left Arm] 139/61 O2 Sat by Pulse Oximetry 97 Oxygen Delivery Method Nasal Cannula Room Air Nasal Cannula Oxygen Flow Rate 2 2 FIO2% 28 11/19/23 20:05 11/19/23 23:38 11/20/23 03:59 Temperature 99.1 F 100.1 F H Pulse Rate 75 Pulse Rate [Apical] 76 73 Respiratory Rate 20 21 Blood Pressure Blood Pressure [Left Arm] 130/57 140/63 O2 Sat by Pulse Oximetry 100 100 100 Oxygen Delivery Method Room Air Room Air Oxygen Flow Rate FIO2% 11/20/23 08:00 11/20/23 07:00 11/20/23 09:06 Temperature 99.2 F Pulse Rate Pulse Rate [Apical] 77 Respiratory Rate 20 Blood Pressure Blood Pressure [Left Arm] 143/63 O2 Sat by Pulse Oximetry 95 Oxygen Delivery Method Room Air Nasal Cannula Room Air Oxygen Flow Rate 2 2 FIO2% 28 11/20/23 09:06 Temperature Pulse Rate 77 Pulse Rate [Apical] Respiratory Rate Blood Pressure Blood Pressure [Left Arm] O2 Sat by Pulse Oximetry 96 Oxygen Delivery Method Oxygen Flow Rate FIO2% Labs: Laboratory Last Values WBC 6.5 X10^3/uL (3.6-10.0) 11/20/23 06:13 RBC 3.01 X10^6/uL (3.5-5.4) L 11/20/23 06:13 Hgb 8.5 g/dL (12.0-16.0) L 11/20/23 06:13 Hct 26.0 % (36.0-47.0) L 11/20/23 06:13 MCV 86.2 fL (80.0-100.0) 11/20/23 06:13 MCH 28.3 pg (27.0-34.0) 11/20/23 06:13 MCHC 32.9 g/dL (33.0-35.0) L 11/20/23 06:13 RDW 14.6 % (11.6-16.5) 11/20/23 06:13 Plt Count 201 X10^3/uL (150.0-450.0) 11/20/23 06:13 MPV 8.9 fL (7.4-11.0) 11/20/23 06:13 Neut % (Auto) 61.2 % (42.0-75.0) 11/20/23 06:13 Lymph % (Auto) 19.5 % (21.0-51.0) L 11/20/23 06:13 [place] % (Auto) 16.2 % (0.0-13.0) H 11/20/23 06:13 Eos % (Auto) 1.9 % (0.9-2.9) 11/20/23 06:13 Baso % (Auto) 1.2 % (0.2-1.0) H 11/20/23 06:13 Neut # (Auto) 4.0 x10^3/uL (2.2-4.8) 11/20/23 06:13 Lymph # (Auto) 1.3 X10^3/uL (1.3-2.9) 11/20/23 06:13 [place] # (Auto) 1.0 x10^3/uL (0.3-0.8) H 11/20/23 06:13 Eos # (Auto) 0.1 x10^3/uL (0.0-0.2) 11/20/23 06:13 Baso # (Auto) 0.1 X10^3/uL (0.0-0.1) 11/20/23 06:13 Absolute Nucleated RBC 0.0 /100WBC 11/20/23 06:13 Sodium 142 mmol/L (136-145) 11/20/23 06:13 Corrected Sodium TNP 11/20/23 06:13 Potassium 4.3 mmol/L (3.5-5.1) 11/20/23 06:13 Chloride 108 mmol/L (98-107) H 11/20/23 06:13 Carbon Dioxide 28.3 mmol/L (21-32) 11/20/23 06:13 BUN 17 mg/dL (7-18) 11/20/23 06:13 Creatinine 1.40 mg/dL (0.55-1.02) H 11/20/23 06:13 Est GFR (MDRD) Af Amer 46 (>60) L 11/20/23 06:13 Est GFR (MDRD) Non-Af 38 (>60) L 11/20/23 06:13 Glucose 102 mg/dL (65-99) H 11/20/23 06:13 Lactic Acid 0.5 mmol/L (0.4-2.0) 11/18/23 11:25 Calcium 8.3 mg/dL (8.5-10.1) L 11/20/23 06:13 Corrected Calcium 9.7 mg/dL (8.5-10.1) 11/20/23 06:13 Magnesium 2.1 mg/dL (2.0-2.9) 11/19/23 04:58 Iron 35 ug/dL (50-175) L 11/20/23 06:15 TIBC 220 ug/dL (250-450) L 11/20/23 06:15 Ferritin 72 ng/mL (8-252) 11/20/23 06:15 Total Bilirubin 0.20 mg/dL (0.2-1.0) 11/20/23 06:13 AST 20 Units/L (15-37) 11/20/23 06:13 ALT 15 Units/L (12-78) 11/20/23 06:13 Alkaline Phosphatase 57 Units/L (46-116) 11/20/23 06:13 Total Protein 6.2 g/dL (6.4-8.2) L 11/20/23 06:13 Albumin 2.3 g/dL (3.4-5.0) L 11/20/23 06:13 Globulin 3.9 g/dL (2.5-4.5) 11/20/23 06:13 Albumin/Globulin Ratio 0.6 Ratio (1.1-2.1) L 11/20/23 06:13 Vitamin B12 634 pg/mL (193-986) 11/20/23 06:15 Folate > 20.0 ng/mL (>8.6) 11/20/23 06:15 Specimen Type Clean catch urine 11/18/23 11:58 Urine Color Straw (YELLOW) 11/18/23 11:58 Urine Appearance Slightly hazy (CLEAR) 11/18/23 11:58 Urine pH 5.0 (5.0 - 8.0) 11/18/23 11:58 Ur Specific [place] 1.015 (1.000-1.030) 11/18/23 11:58 Urine Protein 2+ (NEGATIVE) 11/18/23 11:58 Urine Glucose (UA) Negative (NEGATIVE) 11/18/23 11:58 Urine Ketones Negative (NEGATIVE) 11/18/23 11:58 Urine Blood 1+ (NEGATIVE) 11/18/23 11:58 Urine Nitrite Negative (NEGATIVE) 11/18/23 11:58 Urine Bilirubin Negative (NEGATIVE) 11/18/23 11:58 Urine Urobilinogen Normal (NORMAL) 11/18/23 11:58 Ur Leukocyte Esterase 3+ (NEGATIVE) 11/18/23 11:58 Urine RBC 3-5 /HPF (0-3) A 11/18/23 11:58 Urine WBC Tntc /HPF (0-5) A 11/18/23 11:58 Ur Squamous Epith Cells Many /HPF (NEGATIVE) 11/18/23 11:58 Urine Bacteria Trace /HPF (NEGATIVE) 11/18/23 11:58 Ur Culture Indicated? Yes/culture set up 11/18/23 11:58 Reason For Visit: PNEUMONIA, UTI, WEAKNESS Discharge Diagnosis All Active Problems (Updated 11/18/23 @ 16:11 by Jewell Sr) Fall (Acute) Contusion of face, scalp and neck (Acute) Traumatic hematoma of forehead (Acute) Skin tear (Acute) Hypertension (Acute) UTI (urinary tract infection) (Acute) Pneumonia (Acute) Dry cough (Acute) Right-sided chest wall pain (Acute) Bad odor of urine (Acute) Urinary body odor (Acute) Contusion of head (Acute) UTI (urinary tract infection) (Acute) Renal insufficiency (Acute) Hypothyroidism (Acute) Chronic anemia (Acute) Anxiety (Acute) Restless leg syndrome (Chronic) Plan of Treatment: Continue with present treatment and follow up plan. Pt is to keep follow up appointment as instructed and take medications as ordered. Discharge Medications Discharge Medications: levofloxacin [From Levaquin] Allergy (Unknown, Verified 01/06/23 19:38) CONTINUE taking the following medications acetaminophen 325 mg tablet (Tylenol) 325 mg PO Q4H PRN 11/18/23 [History] aspirin 81 mg tablet,delayed release 81 mg PO DAILY 11/18/23 [History] atorvastatin 40 mg tablet 40 mg PO HS 11/18/23 [History] carvedilol 3.125 mg tablet 3.125 mg PO BID 11/18/23 [History] clopidogrel 75 mg tablet 75 mg PO QDAY 11/18/23 [History] docusate sodium 100 mg capsule (Colace) 100 mg PO BID 11/18/23 [History] ondansetron HCl 4 mg tablet 4 mg PO Q8H PRN Nausea 11/18/23 [History] New Prescriptions cefdinir 300 mg capsule 300 mg PO BID 5 days #10 caps 11/20/23 [Rx] Discharge Disposition Discharge Disposition: home Discharge Condition: stable Discharge Plan Discharge Plan Hospital Course: Ms Shane is a 88y/o female who presented with weakness and urinary symptoms. She has a hx of CHF, CAD, CKD and dementia. She is currently with hospice services. She was admitted for pneumonia, UTI and generalized weakness. She was started on IV antibiotics, nebs and O2 prn. Her labs were monitored daily and electrolytes were replaced as needed. Urine cx did not show any growth. CXR showed atelectasis and chronic changes. CT chest also showed chronic changes with atelectasis. She was doing better and stable for discharge. She will be discharged with current hospice services. She will f/u with PCP as scheduled. She was discharged on PO antibiotics. Patient Disposition: HOME HEALTH SERVICE Condition: Stable Health Concerns: Post Hospitalization: new medications and changes needed to prevent readmission or further decline. Pt educated and given instructions on all concerns. Care Plan Goals: Problem: Infection Goal: Temperature within normal limits. Resolved infection. Instructions: Follow provided instructions. Follow up with primary physician as directed. Contact primary care physician or report to the closest Emergency Room if condition worsens. Plan of Treatment: Continue with present treatment and follow up plan. Pt is to keep follow up appointment as instructed and take medications as ordered. Prescriptions: New cefdinir 300 mg capsule 300 mg PO BID 5 Days Qty: 10 0RF Continued budesonide 0.5 mg/2 mL suspension for nebulization 0.5 mg inhalation BID Qty: 60 3RF ropinirole 0.5 mg tablet 0.5 mg PO TID Qty: 90 0RF levothyroxine 75 mcg tablet 75 mcg PO QDAY 30 Days Qty: 30 3RF montelukast 10 mg tablet 10 mg PO QDAY Qty: 30 3RF amiodarone 100 mg tablet 100 mg PO QDAY 30 Days Qty: 30 1RF albuterol sulfate 90 mcg/actuation HFA aerosol inhaler 2 puff inhalation Q4-6H PRN (Reason: shortness of breath or wheezing) Qty: 8.5 3RF albuterol sulfate 1.25 mg/3 mL solution for nebulization 1.25 mg inhalation Q4-6H PRN (Reason: shortness of breath or wheezing) Qty: 90 3RF venlafaxine 75 mg tablet 75 mg PO QDAY Qty: 30 2RF pantoprazole 40 mg tablet,delayed release (DR/EC) 40 mg PO BID 30 Days Qty: 60 2RF memantine 10 mg tablet 10 mg PO BID Qty: 60 2RF furosemide 20 mg tablet 20 mg PO QDAY Qty: 30 3RF donepezil [Aricept] 10 mg tablet 10 mg PO QDAY Qty: 30 1RF gabapentin 100 mg capsule 200 mg PO BID 30 Days Qty: 120 2RF acetaminophen [Tylenol] 325 mg Tablet 325 mg PO Q4H PRN ondansetron HCl 4 mg Tablet 4 mg PO Q8H PRN (Reason: Nausea) clopidogrel 75 mg tablet 75 mg PO QDAY aspirin 81 mg Tablet,Delayed Release (Dr/Ec) 81 mg PO DAILY docusate sodium [Colace] 100 mg Capsule 100 mg PO BID atorvastatin 40 mg tablet 40 mg PO HS carvedilol 3.125 mg tablet 3.125 mg PO BID Patient Comments: Take One Tablet Twice a day, per Patients daughter. Rx Instructions: must administer with a meal/food Discontinued acetaminophen-codeine 325-15 mg Tablet 1 tab PO Q6H PRN Follow ups/Referrals Follow ups/Referrals: [facility] [STAFF PHYSICIAN] - Edd Alba [Primary Care Provider] - 12/11/23 11:00 am Instructions Instructions: Fall Prevention in the Home, Adult, [id number], Weakness, [id number], Urinary Tract Infection, Adult, [id number], Community-Acquired Pneumonia, Child, [id number]
== END 2023-11-20 16:04 | disposition home health service (06) ==
LOC: SUPCPDRO → MED/SURG 10:55 → ER 10:55 → MED/SURG 16:11
PROVIDERS: ADMIT Internal Medicine; ATTEND Family Medicine